=== PATIENT | male | born 1985 | race African-American/Black ===

== ENCOUNTER 2022-02-14 11:34 | Emergency (ER) | payer OTHER, SELFPAY ==
--- NOTE | ~2022-02-14 | CT_ITS ---
EXAMINATION: CT abdomen pelvis w con DATE: 02/14/2022 12:25 INDICATION: Lower abdominal pain TECHNIQUE: Computed tomography (CT) of the abdomen and pelvis was performed with 100 cc Omnipaque 350 intravenous contrast. The dose-length product was 479.55 mGy-cm. Automated exposure control and iter ative reconstruction technique were employed. COMPARISON: None. FINDINGS: There is right lower lobe atelectasis. There is an elevated right kidney with malrotation. There is a fracture of T12 transfixed by spinal rods and interpedicular screws above and below this l evel. There is an adjacent thoracotomy defect. The liver, spleen, pancreas, left adrenal gland and left kidney are unremarkable. The right adrenal g land is not well demonstrated. No significant vascular abnormality. No lymphadenopathy. Nonobstructive bowel gas pattern. Moderate colonic fecal loading. Normal appendix. There is thickenin g of the rectum with mild surrounding fatty infiltration. Consider stercoral proctitis. There is oste oarthritis of the hips. No free air or free fluid. IMPRESSION: 1. Thickening of the rectum with mild surrounding fatty infiltration. There is fecal loading of the r ectum. Consider stercoral proctitis. 2: Superiorly located right kidney with malrotation. There is a nearby thoracotomy defect with adjace nt T12 fracture transfixed by spinal rods and pedicular screws. Reviewed, dictated and finalized at location [facility]. 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 Thickening of the rectum with mild surrounding fatty infiltration. There is fecal loading of the rectum. Consider stercoral proctitis. 2: Superiorly located right kidney with malrotation. There is a nearby thoracot easton defect with adjacent T12 fracture transfixed by spinal rods and pedicular s crews.
[2022-02-14 11:35] VITALS: BP 142/80; PULSE 72; RESP 14; TEMP 37.2; O2SAT 100
[2022-02-14 12:01] LABS: Basophils Percent Auto 0.7 % (0.2-1.2); Eosinophils Absolute Auto 0.1 K/mm3 (0-0.3); Eosinophils Percent Auto 1.5 % (0-4.4); Hematocrit 41.3 % (42.0-52.0); Hemoglobin 13.5 g/dL (14.0-18.0); Immature Granulocyte Absolute 0.02 K/mm3 (0.00-0.031); Immature Granulocyte Percent A 0.4 % (0-0.5); Lymphocytes Absolute Auto 2.07 K/mm3 (0.9-3.2); Lymphocytes Percent Auto 38.1 % (18.3-44.2); Mean Corpuscular HGB Conc 32.7 g/dl (32-36); Mean Corpuscular Hemoglobin 29.7 pg (26-34); Mean Corpuscular Volume 90.8 fl (80-100); Mean Platelet Volume 10.4 fl (7.4-10.4); Monocytes Absolute Auto 0.4 K/mm3 (0.1-0.6); Monocytes Percent Auto 6.4 % (2.6-8.5); Neutrophils Absolute Auto 2.9 K/mm3 (1.3-6.7); Neutrophils Percent Auto 52.9 % (45.5-73.1); Platelet Count Result 302 k/mm3 (150-375); Red Blood Count 4.55 M/mm3 (4.6-6.20); Red Cell Distribution Width 17.2 % (11.5-14.5); White Blood Count 5.4 K/mm3 (4.5-10.0)
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
[2022-02-14 12:09] LABS: Estimated CRCL calculation 98 ml/min; Estimated Glomerular Filt Rate > 60
[2022-02-14 12:11] LABS: Alanine Aminotransferase 26 U/L (6-50); Albumin Level 4.4 g/dL (3.5-5.1); Alkaline Phosphatase 79 U/L (38-126); Anion Gap 7 mmol/L (8-16); Aspartate Amino Transferase 28 U/L (17-59); Bilirubin,Total 0.5 mg/dL (0.2-1.3); Blood Urea Nitrogen 11 mg/dL (9-20); Calcium 9.3 mg/dL (8.4-10.2); Carbon Dioxide 29 mmol/L (22-30); Chloride 98 mmol/L (98-107); Estimated CRCL calculation 109 ml/min; Estimated Glomerular Filt Rate > 60; Glucose 111 mg/dL (65-110); Lipase 120 U/L (23-300); Potassium 3.7 mmol/L (3.4-5.0); Sodium 134 mmol/L (137-145)
[2022-02-14 13:52] VITALS: BP 136/84; PULSE 72; RESP 16; O2SAT 98
[2022-02-14 13:56] LABS: Appearance Urine Clear (Clear); Bilirubin Urine 1+ (Negative); Blood Urine Negative (Negative); Color Urine Yellow (Yellow); Glucose Urine UA Negative (Negative); Ketones Urine Negative (Negative); Leukocyte Esterase Ur Negative LEU/UL (Negative); Nitrate Urine Negative (Negative); Protein Urine Negative (Negative); Specific Grav Ur 1.025 (1.001-1.035); Urobilinogen Urine 0.2 mg/dL (<2.0); pH Urine 5.5 (5.0-9.0)
[2022-02-14 13:59] LABS: Mucus Urine Rare /lpf; Squamous Epithelial Cell Urine Rare /hpf (Few)
[2022-02-14 14:00] LABS: Add Urine Microscopic? YES
[2022-02-14] MEDS: KETOROLAC 15 MG/ML VIAL (*BKC) IV PUSH (16:55)
[2022-02-14 16:56] VITALS: BP 122/86; PULSE 83; RESP 16; O2SAT 98
[2022-02-14] MEDS: CIPROFLOXACIN 500 MG TAB PO (17:15)
[2022-02-14] MEDS: metroNIDAZOLE 250 MG TABLET 500 MG PO (17:15)
--- NOTE | 2022-02-14 17:30 | PCCCNOTE ---
Late entry: Referral received for care coordination as patient has difficulty obtaining straight caths. Met with patient and his fiance Mary in ED Room 10. Patient states that he discharged from [facility] and the end of October and he has been having difficulty getting order signed from his primary doctor as the doctor has changed multiple times. He has left several messages this week with no return call. Patient also works with [employer] and they haven't had any luck in assisting him. He has called [employer] the medical supplier and they faxed the order to the wrong fax #. Patient does have a leather case finisher with [facility] named Meaghan, who is trying to assist and has helped get therapy set up which he will start on the . Called to [facility] Customer Service, the customer service line is closed and advises for call back during business hours. Called to [employer] they are closed. Called to Dr. Vamsi Jain at [phone], no answer and no ability to leave a message only access is urgent paging line. Called to Meaghan hemodialysis patient care specialist at [facility] [phone], left a voice mail message expresses concerns with the difficulties that the patient is having getting his catheters that he had to come to the ER today. Requested that she follow up with him. Provided patient with a list of primary providers from the [facility] if he would like to change. Advised him to call his current PCP for in office appt for ER follow up to get the order signed and fax'd for his catheters. Advised that he call his insurance to see if there is another medical supplier besides [employer] that he could use. Discussion with ED physician, supercharger mechanic and bedside RN Timoteo to send patient with some self caths while he is awaiting follow up.
--- NOTE | 2022-02-17 12:37 | PCCCNOTE ---
Late entry: called to Dr. Cristobal Agustin' office requested a follow up call to the patient since he was in the ER on Tuesday and having difficulty getting his self-catheters. Called to [facility] [place] someone from [facility] had called them to follow up and the catheters should be arriving via [employer] by the end of the day, actually the truck was in [place], [place]. Called to [facility] Supervisor Contact And Service Cler[employer] Meaghan and left a message that catheters should be arriving. Called to patient emi turner, spoke with him on the 2nd call and he states that his catheters have arrived. Phone call received from Meaghan, the patient's long term care administrator from [facility] and she confirms that she has been working hard to help him and had called [facility] today and they had said the same about the catheters. She notifies this showcase maker that he will start physical therapy on the at [facility] and working to get him some help at home and paid caregiver program through [facility] for his fiance Mary. Commended Meaghan on all her hard work for him and thanked her for the return call.
== END 2022-02-14 17:10 | disposition home or self-care (01) ==
PROVIDERS: Emergency Medicine; Emergency Provider Emergency Medicine
DX: N39.0 Urinary tract infection, site not specified (principal); K59.00 Constipation, unspecified; G82.20 Paraplegia, unspecified; T14.8XXS Other injury of unspecified body region, sequela; W34.00XS Accidental discharge from unspecified firearms or gun, sequela
CPT/HCPCS: 36415; 51701; 74177; 80053; 81001; 83690; 85025; 96374; 99284; A9270; J1885; Q9967

== ENCOUNTER 2022-12-03 16:54 | Emergency (ER) | payer OTHER, SELFPAY ==
[2022-12-03 18:09] VITALS: BP 144/82; PULSE 71; RESP 18; TEMP 37.2; O2SAT 100
[2022-12-03 18:35] LABS: Basophils Percent Auto 0.7 % (0.2-1.2); Eosinophils Absolute Auto 0.1 K/mm3 (0-0.3); Eosinophils Percent Auto 0.8 % (0-4.4); Hematocrit 43.4 % (42.0-52.0); Hemoglobin 14.6 g/dL (14.0-18.0); Immature Granulocyte Absolute 0.02 K/mm3 (0.00-0.031); Immature Granulocyte Percent A 0.3 % (0-0.5); Lymphocytes Absolute Auto 1.99 K/mm3 (0.9-3.2); Lymphocytes Percent Auto 32.9 % (18.3-44.2); Mean Corpuscular HGB Conc 33.6 g/dl (32-36); Mean Corpuscular Volume 95.2 fl (80-100); Mean Platelet Volume 10.9 fl (7.4-10.4); Monocytes Absolute Auto 0.5 K/mm3 (0.1-0.6); Monocytes Percent Auto 7.8 % (2.6-8.5); Neutrophils Absolute Auto 3.5 K/mm3 (1.3-6.7); Neutrophils Percent Auto 57.5 % (45.5-73.1); Platelet Count Result 256 k/mm3 (150-375); Red Blood Count 4.56 M/mm3 (4.6-6.20); Red Cell Distribution Width 13.7 % (11.5-14.5)
[2022-12-03 18:54] LABS: Alanine Aminotransferase 67 U/L (6-50); Albumin Level 4.6 g/dL (3.5-5.1); Alkaline Phosphatase 91 U/L (38-126); Anion Gap 11 mmol/L (8-16); Aspartate Amino Transferase 58 U/L (17-59); Bilirubin,Total 0.8 mg/dL (0.2-1.3); Blood Urea Nitrogen 10 mg/dL (9-20); Calcium 9.6 mg/dL (8.4-10.2); Carbon Dioxide 25 mmol/L (22-30); Chloride 100 mmol/L (98-107); Estimated Glomerular Filt Rate > 60; Glucose 84 mg/dL (65-110); Lipase 89 U/L (23-300); Potassium 4.4 mmol/L (3.4-5.0); Sodium 136 mmol/L (137-145)
--- NOTE | 2022-12-03 19:47 | PC.NURSE ---
pt left before being seen. Did not want to wait any longer.
== END 2022-12-03 20:48 | disposition left against medical advice (07) ==
PROVIDERS: Emergency Provider Emergency Medicine
DX: R10.30 Lower abdominal pain, unspecified (principal)
CPT/HCPCS: 36415; 80053; 83690; 85025; 99199

== ENCOUNTER 2023-01-12 17:38 | Emergency (ER) | payer OTHER, SELFPAY ==
[2023-01-12 17:40] VITALS: BP 143/70; PULSE 84; RESP 17; TEMP 37.2; O2SAT 100
[2023-01-12 18:31] LABS: Basophils Percent Auto 0.5 % (0.2-1.2); Eosinophils Absolute Auto 0.1 K/mm3 (0-0.3); Eosinophils Percent Auto 1.5 % (0-4.4); Hematocrit 42.1 % (42.0-52.0); Hemoglobin 13.7 g/dL (14.0-18.0); Immature Granulocyte Absolute 0.05 K/mm3 (0.00-0.031); Immature Granulocyte Percent A 0.7 % (0-0.5); Lymphocytes Absolute Auto 2.16 K/mm3 (0.9-3.2); Lymphocytes Percent Auto 28.9 % (18.3-44.2); Mean Corpuscular HGB Conc 32.5 g/dl (32-36); Mean Corpuscular Hemoglobin 31.7 pg (26-34); Mean Corpuscular Volume 97.5 fl (80-100); Monocytes Absolute Auto 0.7 K/mm3 (0.1-0.6); Monocytes Percent Auto 8.7 % (2.6-8.5); Neutrophils Absolute Auto 4.5 K/mm3 (1.3-6.7); Neutrophils Percent Auto 59.7 % (45.5-73.1); Platelet Count Result 205 k/mm3 (150-375); Red Blood Count 4.32 M/mm3 (4.6-6.20); Red Cell Distribution Width 15.9 % (11.5-14.5); White Blood Count 7.5 K/mm3 (4.5-10.0)
[2023-01-12 18:41] LABS: Alanine Aminotransferase 65 U/L (6-50); Albumin Level 3.8 g/dL (3.5-5.1); Alkaline Phosphatase 80 U/L (38-126); Anion Gap 4 mmol/L (8-16); Aspartate Amino Transferase 46 U/L (17-59); Bilirubin,Total 0.5 mg/dL (0.2-1.3); Blood Urea Nitrogen 7 mg/dL (9-20); Calcium 8.9 mg/dL (8.4-10.2); Carbon Dioxide 29 mmol/L (22-30); Chloride 105 mmol/L (98-107); Estimated CRCL calculation 122 ml/min; Estimated Glomerular Filt Rate > 60; Glucose 116 mg/dL (65-110); Lipase 163 U/L (23-300); Potassium 3.9 mmol/L (3.4-5.0); Sodium 138 mmol/L (137-145)
[2023-01-12 19:20] LABS: Appearance Urine Cloudy (Clear); Bacteria Urine 4+ /hpf; Bilirubin Urine Negative (Negative); Blood Urine Negative (Negative); Color Urine Yellow (Yellow); Glucose Urine UA Negative (Negative); Ketones Urine Trace mg/dL (Negative); Leukocyte Esterase Ur 2+ LEU/UL (Negative); Need Manual Microscopic Reviewed; Nitrate Urine Negative (Negative); Non Pathogenic Casts 0-2; Protein Urine Negative (Negative); RBC Urine 0-2 /hpf (0-2); Specific Grav Ur 1.024 (1.001-1.035); Squamous Epithelial Cell Urine None seen /hpf (Few); WBC Urine 51-100 /hpf
[2023-01-12 19:21] LABS: Add Urine Microscopic? YES
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
== END 2023-01-12 20:55 | disposition home or self-care (01) ==
PROVIDERS: Emergency Provider Emergency Medicine; PCP Internal Medicine Gastroenterology
DX: T83.518A Infection and inflammatory reaction due to other urinary catheter, initial encounter (principal); N39.0 Urinary tract infection, site not specified; T25.221A Burn of second degree of right foot, initial encounter; T31.0 Burns involving less than 10% of body surface; G82.20 Paraplegia, unspecified; T14.8XXS Other injury of unspecified body region, sequela; X11.0XXA Contact with hot water in bath or tub, initial encounter; Y84.6 Urinary catheterization as the cause of abnormal reaction of the patient, or of later complication, without mention of misadventure at the time of the procedure
CPT/HCPCS: 36415; 80053; 81001; 83690; 85025; 87077; 87086; 87186; 99283

== ENCOUNTER 2024-03-19 18:13 | Emergency (ER) | payer MEDICARE, MEDICAID, SELFPAY ==
--- NOTE | 2024-03-19 18:29 | ED_ITS ---
HPI - Abdominal Pain General Chief Complaint: Abdominal Pain Stated Complaint: ABD PAIN X1D Time Seen by Provider: 03/19/24 18:29 Focused HPI: This is a 39 year old male that presents to the ER for abdominal pain. Ongoing since last night. Reports he believes he is constipated. He believes he is dehydrated. Denies fever, vomiting, or diarrhea. GENERAL: Uncomfortable, well-nourished, and in no acute distress. HEAD: Normocephalic, atraumatic. CHEST: Clear to auscultation. ?No respiratory distress. HEART: Regular rate and rhythm.? NEURO: ?Alert and oriented x3. Patient screened in triage and initial orders placed.? ?Additional care and disposition to be based upon?diagnostic testing and treatment. Related Data Allergies Allergy/AdvReac Type Severity Reaction Status Date / Time No Known Allergies Allergy Verified 03/19/24 18:14 PMFSH Past Medical History Medical History (Updated 03/20/24 @ 17:04 by Michelle Dawn PA-C) Paraplegia Surgical History Surgical History (Updated 01/12/23 @ 22:42 by Gary Mishra MD) Previous back surgery Course Vital Signs Vital signs: Vital Signs Temperature 98.2 F 03/19/24 19:24 Pulse Rate 49 L 03/19/24 19:24 Respiratory Rate 16 03/19/24 19:24 Blood Pressure 115/71 03/19/24 19:24 Pulse Oximetry 100 03/19/24 19:24 Oxygen Delivery Room Air 03/19/24 19:24 Temperature 98.2 F 03/19/24 19:24 Pulse Rate 49 L 03/19/24 19:24 Respiratory Rate 16 03/19/24 19:24 Blood Pressure 115/71 03/19/24 19:24 Pulse Oximetry 100 03/19/24 19:24 Oxygen Delivery Room Air 03/19/24 19:24 MDM - Abdominal Pain MDM Narrative Medical decision making narrative: Patient left after medical screening exam and before any further evaluation or management Discharge Plan Discharge Clinical Impression: Abdominal pain Qualifiers: Abdominal location: unspecified location Qualified Code(s): R10.9 - Unspecified abdominal pain Patient Disposition: Elopement After Seen by Prov Condition: Guarded Prognosis Instructions: Antibiotic Form Patient Language: Portuguese Prescriptions: No Action cefuroxime axetil 500 mg tablet 500 mg PO BID Qty: 20 0RF ciprofloxacin HCl [Cipro] 500 mg tablet 500 mg PO Q12H Qty: 14 0RF metronidazole 500 mg tablet 500 mg PO Q12H 14 Days Qty: 28 0RF Follow-up/Referrals: Vamis,Cristobal Lewis MD [Primary Care Provider] -
[2024-03-19 19:24] VITALS: BP 115/71; PULSE 49; RESP 16; TEMP 36.8; O2SAT 100
--- NOTE | 2024-03-19 21:19 | PC.NURSE ---
No answer when called for room.
--- NOTE | 2024-03-19 21:35 | PC.NURSE ---
No answer when called for room.
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
--- OUTSIDE RECORDS SUMMARY | 2024-03-26 05:36 | XMS_ITS | Referral Summary ---
Author Organization [facility] Address [address] [place] [address] Care Team Providers Care Package Worker Name Role Phone Hussain Rushing APRN-TRAMAINE Unavailable [phone] Hussain Rushing MID LEVEL GAME DESIGNER-CHICK ROOM SUPERVISOR Primary Care Provider Source Comments [facility],non-owned Affiliates and Associated Physician Practices is amultiple site organization consisting of ambulatory clinics and hospital sitesin [place], [place], [place] and [place]. This disclosure is being madepursuant to the Care Everywhere program and may not contain all information available regarding this patient. Last updated 17.[facility] Allergies No known active allergies Medications * [...] (OCEAN; BABY AYR) 0.65 % nasal spray [place] 2 (two) sprays into each nostril every [...] mg tablet Active ergocalciferol (Drisdol) 1.25 MG (23286 UT) capsule Vitamin D2 1,250 mcg (50,000 [...] Mass Index 28.06 12/20/2021 1:26 PM CDT Functional Status Functional Status Response Date of Assess ment Is person deaf or have serious hearing difficult y? No 09/28/2021 Is person blind or have serious difficulty seein g? No 09/28/2021 Does person have serious dif ficulty walking/climbing stairs? No 09/28/2021 Does person have difficulty dressing/bathing? No 09/28/2021 Does person have difficulty doing errands alone? No 09/28/2021 Cognitive Status Response Date of Assessm ent Does person have difficulty concentrating/remembering/making decisions? No 09/28/2021 Plan of Treatment Not on file Medical Devices Implanted Type Area Tar Worker Device Identifier Shelf Expiration Date Model / Serial / Lot Graft Bone Grftn Dbm Plif 10x2.5cm - [id number] Implanted:Qt y: 1 on 10/06/2021 by Marbin Mejia MD at [facility] N/A: Spine Thoracic [employer] 08/20/2024 [id number] / [id number] / Screw 6.5mm 50mm Ma Spne Solera Cd Hzn Implanted:Qt y: 1 on 10/06/2021 by Marbin Mejia MD at [facility] N/A: Spine Thoracic [employer] [id number] / / Screw 6.5mm 45mm Ma Spne Solera Cd Hzn Implanted:Qt y: 5 on 10/06/2021 by Marbin Mejia MD at [facility] N/A: Spine Thoracic [employer] [id number] / / Screw 7.5mm 50mm Ma Spne Solera Cd Hzn Implanted:Qt y: 1 on 10/06/2021 by Marbin Mejia MD at [facility] N/A: Spine Thoracic [employer] [id number] / / Screw 7.5mm 45mm Ma Spne Solera Cd Hzn Implanted:Qt y: 2 on 10/06/2021 by Marbin Mejia MD at [facility] N/A: Spine Thoracic [employer] [id number] / / Screw Set Ti Spnl Brk Off Cd Hzn Nonster Implanted:Qt y: 9 on 10/06/2021 by Marbin Mejia MD at [facility] N/A: Spine Thoracic [employer] [id number] / / Arnav Spnl 150mm 5.5mm Cd Hzn Str Perc Implanted:Qt y: 1 on 10/06/2021 by Marbin Mejia MD at [facility] N/A: Spine Thoracic [employer] [id number] / / Graft Bone Grftn Dbm Plif 10x2.5cm - [id number] Implanted:Qt y: 1 on 10/06/2021 by Marbin Mejia MD at [facility] N/A: Spine Thoracic [employer] 08/20/2024 [id number] / [id number] / Arnav Spnl 160mm 5.5mm Cd Hzn Str Perc Implanted:Qt y: 1 on 10/06/2021 by Marbin Mejia MD at [facility] N/A: Spine Thoracic [employer] [id number] / / Bonescrew, Axs, St 1.7x5mm 5p Implanted:Qt y: 7 on 10/07/2021 at [facility] Mandible Ladonna Craniomaxillofacial [id number] / / Plate 24 Hl Mdfc .6mm Std Str Leibinger Implanted:Qt y: 1 on 10/07/2021 at [facility] Mandible [place] Craniomaxillofacial [id number] / / Explanted Type Area Tar Worker Device Identifier Shelf Expiration Date Model / Serial / Lot Screw 2mm 8mm Slf Drl Xpn Lgt Wire Mndb Explanted:Qty: 6 on 10/07/2021 at [facility] Mandible [place] Craniomaxillofacial [id number] / / Advance Directives * Full Code (Latest Code Status on File) Date Activated Date Inactivated Comments 09/27/2021 9:12 PM 10/13/2021 8:11 PM Care Teams Package Worker Relationship Specialty Start Date End Date Hussain Rushing APRN-CHICK ROOM SUPERVISOR PCP - General 10/19/21 Hussain Rushing APRN-CHICK ROOM SUPERVISOR 09/28/21
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
--- OUTSIDE RECORDS SUMMARY | 2024-03-26 05:38 | XMS_ITS | Encounter Summary ---
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 requests a less strong medication, a lower dose, or a less intrusive route of administration when the lesser drug, dose and route have been ordered for the patient. This patient request must be documented in the MAR. $ Given 10/09/2021 8:58 AM CDT 25 mc g fentaNYL (PF) (Sublimaze) injection 50 mcg 50 mcg, Intravenous, EVERY 10 MIN PRN, Moderate Pain, 4 doses, Starting on Tue10/06/21 at 1148, Until Tue10/06/21 at 1336, Maximum total of 4 doses. If patient reaches max total dose, please consult anesthesiologist prior to further administration of pain meds. Hold pain meds if there are signs of hypoventilation. Patient preference for lesser PRN pain meds may be honored when the patient requests a less strong medication, a lower dose, or a less intrusive route of administration when the lesser drug, dose and route have been ordered for the patient. This patient request must be documented in the MAR., PACU $ Given 10/06/2021 12:26 PM CDT 50 mcg $ Given 10/06/2021 12:13 PM CDT 50 mcg fentaNYL (PF) (Sublimaze) injection 50 mcg 50 mcg, Intravenous, EVERY 10 MIN PRN, Moderate Pain, 4 doses, Starting on Tue10/07/21 at 1400, Until Tue10/07/21 at 1454, Maximum total of 4 doses. If patient reaches max total dose, please consult anesthesiologist prior to further administration of pain meds. Hold pain meds if there are signs of hypoventilation. Patient preference for lesser PRN pain meds may be honored when the patient requests a less strong medication, a lower dose, or a less intrusive route of administration when the lesser drug, dose and route have been ordered for the patient. This patient request must be documented in the MAR., PACU $ Given 10/07/2021 2:19 PM CDT 50 mcg fentaNYL (Sublimaze) bolus from infusion bag 50 mcg 50 mcg, Intravenous, BOLUS FROM BAG PRN, CPOT/RASS goal, Starting on Tue09/27/21 at 2114, Until Tue09/30/21 at 1240, Bolus from bag every 5 minutes to reach CPOT or RASS goal. ??Can give bolus before anticipated painful stimuli. Contact physician if unable to achieve CPOT or RASS goal after administering 4 boluses. Bolus From Bag 09/30/2021 4:41 AM CDT 5 0 mcg Bolus From Bag 09/29/2021 2:05 PM CDT 50 mcg Bolus From Bag 09/29/2021 7:54 AM CDT 50 mcg fentaNYL 2500 mcg/50mL (Sublimaze) infusion 0-200 mcg/hr (0-4 mL/hr), Intravenous, CONTINUOUS, Starting on Tue09/27/21 at 2145, Until Tue10/02/21 at 0922, Above CPOT or RASS goal: bolus per order until goal CPOT or RASS then increase rate per order. Can give bolus before anticipated painful stimuli. Contact physician if unable to achieve RASS goal after administering 4 boluses. At CPOT and RASS goal and no change in 4 hours: Decrease rate per order. Below RASS goal: Hold infusion until at goal then restart at 50% previous rate. If significant hemodynamic changes notify physician., Titration Parameters: Analgosedation, Indication: Analgosedation, Initiate infusion at: 25 mcg/hr, Titrate infusion by: 25 mcg/hr, Titrate every: 5 minutes, Notify physician if: Unachievable RASS goal despite max dose, Unachievable CPOT goal despite max dose, Titration Priority: 1st Current Rate 10/02/2021 12:28 AM CDT 200 mcg/hr 4 mL/hr $ New Bag/Syringe 10/01/2021 10:18 PM CDT 200 mcg/hr 4 mL/ hr Current Rate 10/01/2021 10:03 PM CDT 200 mcg/hr 4 mL/hr gabapentin (Neurontin) capsule 300 mg 300 mg, Oral, 3 TIMES DAILY, First dose on [facility] 10/03/21 at 1500, Until Discontinued $ Given 10/07/2021 9:00 PM CDT 300 mg $ Given 10/07/2021 8:15 AM CDT 300 mg $ Given 10/06/2021 8:18 PM CDT 300 mg gabapentin (Neurontin) capsule 600 mg 600 mg, Oral, 3 TIMES DAILY, First dose (after last modification) on [facility] 10/08/21 at 0900, Until Discontinued $ Given 10/09/2021 8:57 PM CDT 600 mg $ Given 10/09/2021 12:59 PM CDT 600 mg $ Given 10/09/2021 9:03 AM CDT 600 mg gabapentin (Neurontin) capsule 600 mg 600 mg, Oral, 3 TIMES DAILY, First dose (after last modification) on [place] 10/11/21 at 1400, Until Discontinued $ Given 10/12/2021 8:33 AM CDT 600 mg $ Given 10/11/2021 8:19 PM CDT 600 mg $ Given 10/11/2021 1:38 PM CDT 600 mg gabapentin (Neurontin) capsule 900 mg 900 mg, Oral, 3 TIMES DAILY, First dose (after last modification) on [facility] 10/10/21 at 0900, Until Discontinued $ Given 10/11/2021 9:39 AM CDT 900 mg $ Given 10/10/2021 8:08 PM CDT 900 mg $ Given 10/10/2021 2:22 PM CDT 900 mg gabapentin (Neurontin) capsule 900 mg 900 mg, Oral, 3 TIMES DAILY, First dose (after last modification) on 10/12/21 at 1400, Until Discontinued $ Given 10/13/2021 2:22 PM CDT 900 mg $ Given 10/13/2021 7:35 AM CDT 900 mg $ Given 10/12/2021 9:21 PM CDT 900 mg gabapentin (Neurontin) oral solution 300 mg 300 mg, Enteral Tube, 3 TIMES DAILY, First dose on [place] 10/01/21 at 0900, Until Discontinued, Refrigerate. $ Given 10/02/2021 9:13 AM CDT 300 mg NG Tube $ Given 10/01/2021 8:28 PM CDT 300 mg OG Tube $ Given 10/01/2021 2:36 PM CDT 300 mg OG Tube gabapentin (Neurontin) oral solution 300 mg 300 mg, Oral, 3 TIMES DAILY, First dose (after last modification) on Tue10/02/21 at 1400, Until Discontinued, Refrigerate. $ Given 10/03/2021 9:54 AM CDT 300 m g $ Given 10/02/2021 9:39 PM CDT 300 mg $ Given 10/02/2021 2:45 PM CDT 300 mg heparin injection 5,000 Units 5,000 Units, Subcutaneous, EVERY 8 HOURS, First dose on [place] 10/08/21 at 0600, Until Discontinued $ Given 10/12/2021 4:49 AM CDT 5,000 Units Abdominal Tissue $ Given 10/11/2021 8:19 PM CDT 5,000 Units A bdominal Tissue $ Given 10/11/2021 1:38 PM CDT 5,000 Units A bd Right Lower Quadrant HYDROmorphone (Dilaudid) 10 mg/50 mL RELOCATION SPECIALIST RELOCATION SPECIALIST Dose: 0.2 mg, RELOCATION SPECIALIST Lockout Interval: 12 Minutes, One Hour Limit\Max Limit: 1 mg, Clinician Bolus (Load): Not Ordered, Intravenous, RELOCATION SPECIALIST, Starting on 10/03/21 at 1015, Until 10/03/21 at 1321, RELOCATION SPECIALIST Pump Therapy: Normal Risk (RELOCATION SPECIALIST Only) $ New Bag/Syringe 10/03/2021 11:08 AM CDT HYDROmorphone (Dilaudid) injection 0.2 mg 0.2 mg, Intravenous, EVERY 2 HOURS PRN, breakthrough pain, Starting on [place] 10/01/21 at 0810, Until Tue10/02/21 at 0926, Patient preference for lesser PRN pain meds may be honored when the patient requests a less strong medication, a lower dose, or a less intrusive route of administration when the lesser drug, dose and route have been ordered for the patient. This patient request must be documented in the MAR. $ Given 10/02/2021 7:36 AM CDT 0.2 mg HYDROmorphone (Dilaudid) injection 0.2 mg 0.2 mg, Intravenous, Once, 1 dose, On 10/03/21 at 2000, Patient preference for lesser PRN pain meds may be honored when the patient requests a less strong medication, a lower dose, or a less intrusive route of administration when the lesser drug, dose and route have been ordered for the patient. This patient request must be documented in the MAR. $ Given 10/03/2021 8:06 PM CDT 0.2 mg HYDROmorphone (Dilaudid) injection 0.4 mg 0.4 mg, Intravenous, EVERY 3 HOURS PRN, breakthrough pain, Starting on Tue10/02/21 at 0930, Until 10/03/21 at 0957, Patient preference for lesser PRN pain meds may be honored when the patient requests a less strong medication, a lower dose, or a less intrusive route of administration when the lesser drug, dose and route have been ordered for the patient. This patient request must be documented in the MAR. $ Given 10/03/2021 8:27 AM CDT 0.4 mg $ Given 10/03/2021 6:03 AM CDT 0.4 mg $ Given 10/03/2021 12:12 AM CDT 0.4 mg HYDROmorphone (Dilaudid) injection 0.5 mg 0.5 mg, Intravenous, EVERY 10 MIN PRN, Severe Pain, 4 doses, Starting on Tue10/06/21 at 1148, Until Tue10/06/21 at 1336, Maximum total of 4 doses If patient reaches max total dose, please consult anesthesiologist prior to further administration of pain meds. Hold pain meds if there are signs of hypoventilation. Patient preference for lesser PRN pain meds may be honored when the patient requests a less strong medication, a lower dose, or a less intrusive route of administration when the lesser drug, dose and route have been ordered for the patient. This patient request must be documented in the MAR., PACU $ Given 10/06/2021 12:35 PM CDT 0.5 mg $ Given 10/06/2021 12:00 PM CDT 0.5 mg insulin lispro (HumaLOG;ADMelog) 100 UNIT/ML pen 0-6 Units 0-6 Units, Subcutaneous, EVERY 4 HOURS, First dose on Tue09/28/21 at 0000, Until Discontinued, DO NOT HOLD CORRECTION BOLUS EVEN IF PATIENT IS NPO. BEDSIDE GLUCOSE MUST BE PERFORMED AND DOCUMENTED WITHIN 30-60 MINUTES OF CORRECTION INSULIN ADMINISTRATION. BG (mg/dL) LESS than 70 = follow Hypoglycemic guidelines 150-200 = give 1 unit 201-250 = give 2 units 251-300 = give 3 units 301-350 = give 4 units 351-400 = give 5 units and notify physician GREATER than 400 = give 6 units and notify physician $ Given 09/29/2021 8:47 AM CDT 1 Units Abd Right Lower Quadrant iopamidol (Isovue 370) 76 % contrast Intravenous, CONTRAST ONCE, Starting on Tue09/30/21 at 1736, Until Tue10/02/21 at 1735 $ Given - Contrast 09/30/2021 5:36 PM CDT 100 mL iopamidol (Isovue 370) contrast ADS Med 1 dose, Starting on Tue09/27/21 at 2101, Until Tue09/27/21 at 2130, Created by cabinet override $ Given - Contrast 09/27/2021 9:30 PM CDT 100 mL isolyte-S pH 7.4 bolus 1,000 mL, at 983.61 mL/hr, Administer over 61 Minutes, ONCE, 1 dose, On Tue09/28/21 at 1745 $ New Bag/Syringe 09/28/2021 7:49 PM CDT 1,000 mL 983.61 mL/hr isolyte-S pH 7.4 bolus 1,000 mL, at 983.61 mL/hr, Administer over 61 Minutes, ONCE, 1 dose, On Tue09/30/21 at 1300 $ New Bag/Syringe 09/30/2021 4:36 PM CDT 1,000 mL 983.61 mL/hr ketamine (Ketalar) 10 mg/mL injection ADS Med 1 dose, Starting on Tue09/27/21 at 2108, Until Tue09/27/21 at 2125, Created by cabinet override . ketamine (Ketalar) 10 mg/mL injection ADS Med 1 dose, Starting on Tue09/27/21 at 2129, Until Tue09/27/21 at 2157, Created by cabinet override . $ Given 09/27/2021 9:57 PM CDT 50 mg ketamine (Ketalar) 10 mg/mL injection ADS Med 1 dose, Starting on Tue09/27/21 at 2129, Until Tue09/27/21 at 2136, Created by cabinet override . $ Given 09/27/2021 9:36 PM CDT 50 mg ketamine (Ketalar) injection Intravenous, CODE PRN, Starting on Tue09/27/21 at 2111, Until Tue09/27/21 at 2125 $ Given 09/27/2021 9:25 PM CDT 50 mg $ Given 09/27/2021 9:11 PM CDT 100 mg lactated ringers infusion at 150 mL/hr, Intravenous, CONTINUOUS, Starting on Tue09/28/21 at 0500, Until Tue09/28/21 at 1728 $ New Bag/Syringe 09/28/2021 1:36 PM CDT 150 mL/hr Rate Change 09/28/2021 12:02 PM CDT 150 mL/hr $ New Bag/Syringe 09/28/2021 5:06 AM CDT 125 mL /hr lactated ringers IV bolus 1,000 mL, at 983.61 mL/hr, Administer over 61 Minutes, ONCE, 1 dose, On Tue09/28/21 at 0400 $ New Bag/Syringe 09/28/2021 3:58 AM CDT 1,000 mL 983.61 mL/hr lactated ringers IV bolus 1,000 mL, at 983.61 mL/hr, Administer over 61 Minutes, ONCE, 1 dose, On Tue09/28/21 at 1200 $ New Bag/Syringe 09/28/2021 12:01 PM CDT 1,000 mL 983.61 mL/hr lidocaine (Lidoderm) 5 % patch 3 patch 3 patch, Administer over 12 Hours, EVERY 24 HOURS, First dose on [place] 10/01/21 at 0845, Until Discontinued, Apply to extremities and abdomen and remove patch after a max of 12 hours of application within a 24 hour period. $ Applied 10/11/2021 9:39 AM CDT 3 patches Back $ Applied 10/10/2021 9:12 AM CDT 3 patches Ba ck $ Applied 10/09/2021 9:04 AM CDT 3 patches Ba ck magnesium sulfate 2 g in 50 mL bolus 2 g, at 25 mL/hr, Administer over 120 Minutes, Intravenous, ONCE, 1 dose, On Tue09/29/21 at 0300, Infuse at 1 gm/hr $ New Bag/Syringe 09/29/2021 4:09 AM CDT 2 g 25 mL/hr magnesium sulfate 2 g in 50 mL bolus 2 g, at 25 mL/hr, Administer over 120 Minutes, Intravenous, ONCE, 1 dose, On Tue09/30/21 at 0430, Infuse at 1 gm/hr $ New Bag/Syringe 09/30/2021 5:25 AM CDT 2 g 25 mL/hr methocarbamol (Robaxin) tablet 750 mg 750 mg, Enteral Tube, EVERY 6 HOURS, First dose on Tue10/01/21 at 0830, Until Discontinued $ Given 10/02/2021 5:02 AM CDT 750 mg OG Tube $ Given 10/01/2021 11:24 PM CDT 750 mg O G Tube $ Given 10/01/2021 5:31 PM CDT 750 mg OG Tube methocarbamol (Robaxin) tablet 750 mg 750 mg, Oral, EVERY 6 HOURS, First dose (after last modification) on Tue10/02/21 at 1200, Until Discontinued $ Given 10/03/2021 6:03 AM CDT 750 mg $ Given 10/03/2021 12:01 AM CDT 750 mg $ Given 10/02/2021 6:06 PM CDT 750 mg methocarbamol (Robaxin) tablet 750 mg 750 mg, Oral, EVERY 8 HOURS, First dose on Tue10/11/21 at 1400, Until Discontinued $ Given 10/13/2021 2:22 PM CDT 750 mg $ Given 10/13/2021 5:51 AM CDT 750 mg $ Given 10/12/2021 9:21 PM CDT 750 mg midazolam (Versed) 1 mg/mL injection ADS Med 1 dose, Starting on Tue09/27/21 at 2201, Until Tue09/27/21 at 2207, Created by cabinet override $ Given 09/27/2021 10:07 PM CDT 4 mg midazolam (Versed) 100 mg in 100 mL infusion premix 0-10 mg/hr (0-10 mL/hr), Intravenous, CONTINUOUS, Starting on Tue09/27/21 at 2245, Until Tue10/02/21 at 0922, Above RASS goal: Assess and treat pain first if CPOT greater than 2. Bolus per order until goal RASS and increase rate per order. Contact physician if unable to reach RASS goal after administering 4 boluses. At RASS goal and no change in 4 hrs: Decrease rate per order. Below RASS goal (unarousable): Hold infusion until at goal RASS then restart at 50% previous rate. If significant hemodynamic changes notify physician for instructions. Notify physician for inability to reach goals despite maximal dosage Note: The CPOT goal should be achieved first with the use of the ordered analgesic medication prior to targeting RASS goal with the sedative., Titration Parameters: Standard Parameters, Indication: Sedation, Initiate infusion at: 2 mg/hr, Titrate infusion by: 1 mg/hr, Titrate every: 5 minutes, Notify physician if: Unachievable RASS goal despite max dose, Titration Priority: 2nd Rate Change 10/02/2021 1:03 AM CDT 1 mg/hr 1 mL/hr Current Rate 10/02/2021 12:28 AM CDT 2 mg/hr 2 mL/hr Current Rate 10/01/2021 6:02 AM CDT 2 mg/hr 2 mL/hr midazolam (Versed) bolus from infusion bag 2 mg 2 mg, Intravenous, BOLUS FROM BAG PRN, RASS Goal, Starting on Tue09/27/21 at 2209, Until Tue10/02/21 at 0922, Bolus every 5 minutes to reach RASS goal. Contact physician if unable to reach RASS goal after administering 4 boluses. Note: The CPOT goal should be achieved first with the use of the ordered analgesic medication prior to targeting RASS goal with the sedative. Bolus From Bag 09/30/2021 6:07 PM CD T 2 mg Bolus From Bag 09/30/2021 5:50 PM CDT 2 mg Bolus From Bag 09/30/2021 6:15 AM CDT 2 mg morphine 50 mg/50 mL RELOCATION SPECIALIST RELOCATION SPECIALIST Dose: 1 mg, RELOCATION SPECIALIST Lockout Interval: 15 Minutes, One Hour Limit\Max Limit: 4 mg, Clinician Bolus (Load): Not Ordered, Intravenous, RELOCATION SPECIALIST, Starting on 10/03/21 at 1415, Until 10/03/21 at 1835, RELOCATION SPECIALIST Pump Therapy: Normal Risk (RELOCATION SPECIALIST only) $ New Bag/Syringe 10/03/2021 2:39 PM CDT morphine 50 mg/50 mL RELOCATION SPECIALIST RELOCATION SPECIALIST Dose: 1 mg, RELOCATION SPECIALIST Lockout Interval: 10 Minutes, One Hour Limit\Max Limit: 6 mg, Clinician Bolus (Load): Not Ordered, Intravenous, RELOCATION SPECIALIST, Starting on 10/03/21 at 1845, Until [place] 10/08/21 at 0715, RELOCATION SPECIALIST Pump Therapy: Normal Risk (RELOCATION SPECIALIST only) $ New Bag/Syringe 10/08/2021 5:59 AM CDT $ New Bag/Syringe 10/07/2021 4:59 PM CDT $ New Bag/Syringe 10/07/2021 7:07 AM CDT morphine injection 2 mg 2 mg, Intravenous, ONCE, 1 dose, On 10/02/21 at 0945, Patient preference for lesser PRN pain meds may be honored when the patient requests a less strong medication, a lower dose, or a less intrusive route of administration when the lesser drug, dose and route have been ordered for the patient. This patient request must be documented in the MAR. $ Given 10/02/2021 9:48 AM CDT 2 mg morphine injection 2 mg 2 mg, Intravenous, EVERY 4 HOURS PRN, Break through pain, Starting on 10/11/21 at 0116, Until Tue10/12/21 at 0705, Patient preference for lesser PRN pain meds may be honored when the patient requests a less strong medication, a lower dose, or a less intrusive route of administration when the lesser drug, dose and route have been ordered for the patient. This patient request must be documented in the MAR. $ Given 10/11/2021 1:22 AM CDT 2 mg morphine injection 4 mg 4 mg, Intravenous, EVERY 4 HOURS PRN, Severe Pain, if PO meds ineffective, Starting on [place] 10/08/21 at 0716, Until 10/10/21 at 0741, Patient preference for lesser PRN pain meds may be honored when the patient requests a less strong medication, a lower dose, or a less intrusive route of administration when the lesser drug, dose and route have been ordered for the patient. This patient request must be documented in the MAR. $ Given 10/08/2021 7:35 PM CDT 4 mg norepinephrine (Levophed) 8 mg/250 ml D5 infusion premix ADS Med 1 dose, Starting on 09/27/21 at 2129, Until [place] 09/27/21 at 2131, Created by jordan gu norepinephrine (Levophed) 8 mg/250 ml D5 infusion premix 0-0.4 mcg/kg/min ? 90.7 kg (0-68.025 mL/hr, rounded to 0-68.03 mL/hr), Intravenous, CONTINUOUS, Starting on [place] 09/27/21 at 2215, Until [facility] 10/01/21 at 0822, Central line required if infused longer than 48 hours or infusing multiple vasopressors, Titration Parameters: Standard Parameters, Indication: Hypotension, Initiate infusion at: 0.05 mcg/kg/min, Titrate infusion by: If current rate 0.01 to 0.1 mcg/kg/min, titrate by 0.01 mcg/kg/min. If current rate 0.11 to 0.3 mcg/kg/min, titrate by 0.02 mcg/kg/min. If current rate 0.31 mcg/kg/min to the max ordered dose, titrate by 0.05 mcg/kg/min., Titrate every: 1 minute, To maintain a: MAP greater than or equal to 65 mmHg, Notify physician if: MAP less than 65 mmHg despite max dose Rate Change 09/28/2021 10:21 AM CDT 0.01 mcg/kg/min 1.7 mL/hr Rate Change 09/28/2021 9:31 AM CDT 0.02 mcg/kg/min 3.4 mL/ hr Rate Change 09/28/2021 9:15 AM CDT 0.03 mcg/kg/min 5.1 mL/ hr oxyCODONE (immediate release) (Roxicodone) tablet 10 mg 10 mg, Oral, EVERY 4 HOURS PRN, Severe Pain, Starting on Tue10/02/21 at 0922, Until 10/03/21 at 0957, Patient preference for lesser PRN pain meds may be honored when the patient requests a less strong medication, a lower dose, or a less intrusive route of administration when the lesser drug, dose and route have been ordered for the patient. This patient request must be documented in the MAR. $ Given 10/03/2021 9:53 AM CDT 10 mg $ Given 10/03/2021 6:03 AM CDT 10 mg $ Given 10/03/2021 12:02 AM CDT 10 mg oxyCODONE (immediate release) (Roxicodone) tablet 10 mg 10 mg, Oral, EVERY 4 HOURS PRN, Severe Pain, Starting on Tue10/08/21 at 0716, Until Tue10/13/21 at 2011, Patient preference for lesser PRN pain meds may be honored when the patient requests a less strong medication, a lower dose, or a less intrusive route of administration when the lesser drug, dose and route have been ordered for the patient. This patient request must be documented in the MAR. $ Given 10/13/2021 4:24 PM CDT 10 mg $ Given 10/13/2021 7:35 AM CDT 10 mg $ Given 10/12/2021 9:20 PM CDT 10 mg oxyCODONE (immediate release) (Roxicodone) tablet 5 mg 5 mg, Enteral Tube, EVERY 4 HOURS PRN, Moderate Pain, cpot >2, Starting on [place] 10/01/21 at 0809, Until Tue10/02/21 at 09, Patient preference for lesser PRN pain meds may be honored when the patient requests a less strong medication, a lower dose, or a less intrusive route of administration when the lesser drug, dose and route have been ordered for the patient. This patient request must be documented in the MAR. $ Given 10/02/2021 9:13 AM CDT 5 mg NG Tu be oxyCODONE (immediate release) (Roxicodone) tablet 5 mg 5 mg, Enteral Tube, EVERY 4 HOURS PRN, Severe Pain, cpot >2 for one hour after admin of 5mg jose, Starting on Tue10/01/21 at 0809, Until Tue10/02/21 at 09, Patient preference for lesser PRN pain meds may be honored when the patient requests a less strong medication, a lower dose, or a less intrusive route of administration when the lesser drug, dose and route have been ordered for the patient. This patient request must be documented in the MAR. $ Given 10/01/2021 11:18 PM CDT 5 mg OG T ube oxyCODONE (immediate release) (Roxicodone) tablet 5 mg 5 mg, Oral, EVERY 4 HOURS PRN, Moderate Pain, Starting on Tue10/02/21 at 0922, Until Tue10/03/21 at 0957, Patient preference for lesser PRN pain meds may be honored when the patient requests a less strong medication, a lower dose, or a less intrusive route of administration when the lesser drug, dose and route have been ordered for the patient. This patient request must be documented in the MAR. $ Given 10/02/2021 11:10 AM CDT 5 mg oxyCODONE (immediate release) (Roxicodone) tablet 5 mg 5 mg, Oral, EVERY 4 HOURS PRN, Moderate Pain, Severe Pain, Starting on Tue10/06/21 at 1505, Until Tue10/08/21 at 0715, Patient preference for lesser PRN pain meds may be honored when the patient requests a less strong medication, a lower dose, or a less intrusive route of administration when the lesser drug, dose and route have been ordered for the patient. This patient request must be documented in the MAR. $ Given 10/07/2021 4:06 PM CDT 5 mg oxyCODONE (immediate release) (Roxicodone) tablet 5 mg 5 mg, Oral, EVERY 4 HOURS PRN, Moderate Pain, Starting on Tue10/08/21 at 0716, Until Tue10/13/21 at 2011, Patient preference for lesser PRN pain meds may be honored when the patient requests a less strong medication, a lower dose, or a less intrusive route of administration when the lesser drug, dose and route have been ordered for the patient. This patient request must be documented in the MAR. polyethylene glycol 3350 (Miralax) packet 17 g 17 g, Enteral Tube, DAILY, First dose on Tue09/29/21 at 1345, Until Discontinued, Mix in 8 ounces of water, juice, soda, coffee or tea prior to administration $ Given 10/01/2021 9:10 AM CDT 17 g OG Tube $ Given 09/30/2021 8:24 AM CDT 17 g OG Tube $ Given 09/29/2021 3:06 PM CDT 17 g OG Tube polyethylene glycol 3350 (Miralax) packet 17 g 17 g, Enteral Tube, 2 TIMES DAILY, First dose (after last modification) on Tue10/01/21 at 2100, Until Discontinued, Mix in 8 ounces of water, juice, soda, coffee or tea prior to administration $ Given 10/02/2021 9:13 AM CDT 17 g NG Tube $ Given 10/01/2021 8:49 PM CDT 17 g OG Tube polyethylene glycol 3350 (Miralax) packet 17 g 17 g, Oral, 2 TIMES DAILY, First dose (after last modification) on Tue10/02/21 at 2100, Until Discontinued, Mix in 8 ounces of water, juice, soda, coffee or tea prior to administration $ Given 10/12/2021 9:20 PM CDT 17 g $ Given 10/11/2021 8:18 PM CDT 17 g $ Given 10/11/2021 9:39 AM CDT 17 g potassium chloride (Klor-Con) packet 20 mEq 20 mEq, Enteral Tube, ONCE, 1 dose, On Tue10/01/21 at 0230, DISSOLVE IN 120 ML OF COLD WATER OR JUICE AND DRINK SLOWLY $ Given 10/01/2021 2:38 AM CDT 20 mEq OG Tube potassium chloride (Klor-Con) packet 20 mEq 20 mEq, Enteral Tube, ONCE, 1 dose, On Tue10/02/21 at 0700, DISSOLVE IN 120 ML OF COLD WATER OR JUICE AND DRINK SLOWLY $ Given 10/02/2021 6:56 AM CDT 20 mEq OG Tube potassium chloride (Klor-Con) packet 40 mEq 40 mEq, Enteral Tube, ONCE, 1 dose, On Tue10/01/21 at 0845, DISSOLVE IN 120 ML OF COLD WATER OR JUICE AND DRINK SLOWLY $ Given 10/01/2021 9:10 AM CDT 40 mEq OG Tube potassium phosphate 30 mmol in d5w 260 mL bolus premix 30 mmol, at 43.33 mL/hr, Administer over 6 Hours, Intravenous, ONCE, 1 dose, On Tue09/30/21 at 0500, 3 mmol phosphate = 4.4 mEq potassium $ New Bag/Syringe 09/30/2021 5:27 AM CDT 30 mmol 43.33 mL/hr pregabalin (Lyrica) capsule 75 mg 75 mg, Oral, 3 TIMES DAILY, First dose on Tue10/11/21 at 1400, Until Discontinued $ Given 10/11/2021 8:19 PM CDT 75 mg $ Given 10/11/2021 1:38 PM CDT 75 mg prochlorperazine (Compazine) injection 10 mg 10 mg, Intravenous, ONCE PRN, Nausea/Vomiting, 1 dose, Starting on Tue10/06/21 at 1148, Until Tue10/06/21 at 1247, Second choice, use if first choice was ineffective., PACU $ Given 10/06/2021 12:47 PM CDT 10 mg propofol (Diprivan) infusion 0-50 mcg/kg/min ? 90.7 kg (0-27.21 mL/hr), Intravenous, CONTINUOUS, Starting on Tue09/27/21 at 2145, Until Tue09/27/21 at 2210, Above RASS goal: Assess and treat pain first if CPOT greater than 2. If agitation persists increase rate per order. At RASS goal and no change in 4 hours: Decrease rate per order. Below RASS goal (unarousable): Hold infusion until at goal RASS then restart at 50% previous rate. If significant hemodynamic changes notify physician for instructions. Notify physician for inability to reach goals despite maximal dosage. Note: The CPOT goal should be achieved first with the use of the ordered analgesic medication prior to targeting RASS goal with the sedative. Vial and Tubing should be changed and/or discarded every 12 hours., Titration Parameters: Standard Parameters, Indication: Sedation, Initiate infusion at: 5 mcg/kg/min, Titrate infusion by: 5 mcg/kg/min, Titrate every: 2 minutes, Notify physician if: Unachievable RASS goal despite max dose, Titration Priority: 2nd Rate Change 09/27/2021 9:22 PM CDT 5.1452 mcg/kg/min 2.8 mL/hr $ New Bag/Syringe 09/27/2021 9:22 PM CDT 5 mcg/kg/min 2.72 mL/hr saline nasal spray ([place]; Baby [place]) 0.65 % nasal spray 2 spray 2 spray, Each Nostril, EVERY 2 HOURS PRN, Dry Nose, Starting on 10/10/21 at 1945, Until Tue10/13/21 at 2010 $ Given 10/10/2021 8:07 PM CDT 2 sprays senna (Senokot) tablet 17.2 mg 17.2 mg, Enteral Tube, DAILY, First dose on Tue09/29/21 at 1345, Until Discontinued $ Given 10/02/2021 9:14 AM CDT 17.2 mg NG Tu be $ Given 10/01/2021 9:11 AM CDT 17.2 mg OG Tube $ Given 09/30/2021 8:24 AM CDT 17.2 mg OG Tube senna (Senokot) tablet 17.2 mg 17.2 mg, Oral, DAILY, First dose (after last modification) on Tue10/03/21 at 0900, Until Discontinued $ Given 10/09/2021 9:05 AM CDT 17.2 mg $ Given 10/08/2021 8:01 AM CDT 17.2 mg $ Given 10/07/2021 8:15 AM CDT 17.2 mg senna (Senokot) tablet 17.2 mg 17.2 mg, Oral, 2 TIMES DAILY, First dose (after last modification) on Tue10/09/21 at 2100, Until Discontinued $ Given 10/13/2021 7:36 AM CDT 17.2 mg $ Given 10/12/2021 9:20 PM CDT 17.2 mg $ Given 10/12/2021 10:00 AM CDT 17.2 mg sodium bicarbonate 8.4 % 150 mEq in dextrose 5 % 1,000 mL IVF at 150 mL/hr, Intravenous, CONTINUOUS, Starting on Tue09/28/21 at 1900, Until Tue09/30/21 at 1234, Controlled Room Temperature $ New Bag/Syringe 09/30/2021 5:29 AM CDT 150 mL/hr $ New Bag/Syringe 09/29/2021 2:17 PM CDT 150 mL /hr $ New Bag/Syringe 09/29/2021 4:11 AM CDT 150 mL /hr sodium chloride tablet 1 g 1 g, Oral, 3 TIMES DAILY WITH MEALS, First dose on [place] 10/08/21 at 1230, Until Discontinued $ Given 10/11/2021 9:39 AM CDT 1 g $ Given 10/10/2021 7:25 PM CDT 1 g $ Given 10/10/2021 2:22 PM CDT 1 g succinylcholine (Anectine) injection Intravenous, CODE PRN, Starting on 09/27/21 at 2112, Until 09/27/21 at 2112 $ Given 09/27/2021 9:12 PM CDT 100 mg tranexamic acid (Cyklokapron) 1,000 mg in 0.9% NaCl IV 110 mL bolus 1,000 mg, at 220 mL/hr, Intravenous, ONCE, 1 dose, On 09/27/21 at 2145 $ Bolus New Bag 09/27/2021 9:35 PM CDT 1,000 mg 220 mL/hr tranexamic acid (Cyklokapron) 1,000 mg in 0.9% NaCl IV 110 mL bolus 1,000 mg, at 13.75 mL/hr, Intravenous, ONCE, 1 dose, On 09/27/21 at 2145 $ New Bag/Syringe 09/27/2021 10:45 PM CDT 1,000 mg 13.75 mL/hr traZODone (Desyrel) tablet 50 mg 50 mg, Oral, AT BEDTIME, First dose on 10/10/21 at 2100, Until Discontinued $ Given 10/12/2021 9:21 PM CDT 50 mg $ Given 10/11/2021 8:19 PM CDT 50 mg $ Given 10/10/2021 8:08 PM CDT 50 mg aryxj-rrh-cvuzfjei (HOG) enema 360 mL 360 mL, Rectal, ONCE, 1 dose, On [place] 10/01/21 at 1215 $ Given 10/01/2021 2:00 PM CDT 360 mL documented in this encounter Active and Recently Administered Medications Times are shown in CDT. Scheduled Medication Order 10/11/2021 10/12/2021 10/13/2021 0.9% NaCl injection 3 mL(Linked Group 1) 3 mL, Intracatheter, EVERY 8 HOURS, First dose on 09/27/21 at 2200, Until Discontinued, Flush peripheral IV catheter with 3 mL of normal saline every 8 hours. 0546 ($ Given - Provider: John Hurst RN)1338 ($ Given - Provider: Eder Palencia RN)2019 ($ Given - Provider: John Hurst RN) 0456 ($ Given - Provider: John Hurst RN)1804 (Not Administered - Provider: Jyoti Patiño RN - Reason: Refused-Patient)2122 ($ Given - Provider: Jyoti Benz RN) 0553 ($ Given - Provider: Jyoti Benz RN)1432 (Not Administered - Provider: Jyoti Patiño, REYES - Reason: Refused-Patient) acetaminophen (Tylenol) tablet 1,000 mg 1,000 mg, Oral, 3 TIMES DAILY (diuretics and nitrates), First dose (after last modification) on Tue10/09/21 at 1200, Until Discontinued, Patient preference for lesser PRN pain meds may be honored when the patient requests a less strong medication, a lower dose, or a less intrusive route of administration when the lesser drug, dose and route have been ordered for the patient. This patient request must be documented in the MAR. 0938 ($ Given - Provider: Eder Palencia RN)1338 ($ Given - Provider: Eder Palencia RN)1718 ($ Given - Provider: Eder Palencia RN) 0832 ($ Given - Provider: Jyoti Patiño RN)1134 ($ Given - Provider: Jyoti Patiño RN)1636 ($ Given - Provider: Jyoti Patiño RN) 0735 ($ Given - Provider: Jyoti Patiño RN)1358 (Not Administered - Provider: Jyoti Patiño RN - Reason: Patient sleeping)1422 ($ Given - Provider: Jyoti Patiño RN) amoxicillin-clavulanate (Augmentin) tablet 875 mg 875 mg, Oral, 2 TIMES DAILY, 14 doses, First dose on Tue10/08/21 at 1230, Last dose on Tue10/14/21 at 2100, Administer with food to decrease GI side effects., Indication for anti-infective therapy: Surgical prophylaxis 0938 ($ Given - Provider: Eder Palencia RN)2019 ($ Given - Provider: John Hurst RN) 0832 ($ Given - Provider: Jyoti Patiño RN)2121 ($ Given - Provider: Jyoti Benz RN) 0735 ($ Given - Provider: Jyoti Patiño RN) bisacodyl (Dulcolax) suppository 10 mg 10 mg, Rectal, DAILY, First dose on Tue10/01/21 at 1230, Until Discontinued 0939 ($ Given - Provider: Eder Palencia RN) 1155 (Not Administered - Provider: Jyoti Patiño RN - Reason: Refused-Patient) 0735 ($ Given - Provider: Jyoti Patiño RN) chlorhexidine (Peridex) 0.12 % oral solution 15 mL (CANCELED) 15 mL, Mouth/Throat, 2 TIMES DAILY, First dose on Tue09/27/21 at 2145, Until Discontinued, Swab oral mucosa for 30 seconds. Do not brush teeth immediately after use. . WASTE DISPOSAL INSTRUCTIONS: Black Bin Disposal required. 0939 ($ Given - Provider: Eder Palencia RN) chlorhexidine (Peridex) 0.12 % oral solution 15 mL 15 mL, Mouth/Throat, 4 TIMES DAILY AFTER MEALS AND AT BEDTIME, First dose (after last modification) on Tue10/11/21 at 1300, Until Discontinued, Swab oral mucosa for 30 seconds. Do not brush teeth immediately after use. . WASTE DISPOSAL INSTRUCTIONS: Black Bin Disposal required. 1339 ($ Given - Provider: Eder Palencia RN)1718 ($ Given - Provider: Eder Palencia RN)202 ($ Given - Provider: John Hurst RN) 0833 ($ Given - Provider: Jyoti Patiño RN)1514 (Not Administered - Provider: Jyoti Patiño RN - Reason: Refused-Patient)2007 (Not Administered - Provider: Jyoti Benz RN - Reason: Patient sleeping)2122 ($ Given - Provider: Jyoti Benz RN) 0816 (Not Administered - Provider: Jyoti Patiño RN - Reason: See Comments - Comment: pt already took)1422 ($ Given - Provider: Jyoti Patiño RN)1900 (Due) cyclobenzaprine (Flexeril) tablet 10 mg (CANCELED) 10 mg, Oral, 3 TIMES DAILY, First dose (after last modification) on Tue10/09/21 at 0900, Until Discontinued 0938 ($ Given - Provider: Eder Palencia RN) docusate sodium (Colace) capsule 100 mg 100 mg, Oral, DAILY, First dose on Tue10/09/21 at 1415, Until Discontinued 0938 ($ Given - Provider: Eder Palencia RN) 0832 ($ Given - Provider: Jyoti Patiño RN) 0736 ($ Given - Provider: Jyoti Patiño RN) enoxaparin (Lovenox) injection 30 mg 30 mg, Subcutaneous, EVERY 12 HOURS, First dose on Tue10/12/21 at 2100, Until Discontinued, (for prefilled syringes) do not expel air bubble from the syringe prior to the injection Remind Patient to not rub injection site. Could cause hematoma. 2120 ($ Given - Provider: Jyoti Benz RN) 0816 ($ Given - Provider: Jyoti Patiño RN) famotidine (Pepcid) tablet 20 mg 20 mg, Oral, 2 TIMES DAILY, First dose (after last modification) on Tue10/02/21 at 2100, Until Discontinued 0938 ($ Given - Provider: Eder Palencia RN)2019 ($ Given - Provider: John Hurst RN) 0833 ($ Given - Provider: Jyoti Patiño RN)2120 ($ Given - Provider: Jyoti Benz RN) 0735 ($ Given - Provider: Jyoti Patiño RN) gabapentin (Neurontin) capsule 600 mg (CANCELED) 600 mg, Oral, 3 TIMES DAILY, First dose (after last modification) on Tue10/11/21 at 1400, Until Discontinued 133 ($ Given - Provider: Eder Palencia RN)2019 ($ Given - Provider: John Hurst RN) 0833 ($ Given - Provider: Jytoi Patiño, REYES) gabapentin (Neurontin) capsule 900 mg (CANCELED) 900 mg, Oral, 3 TIMES DAILY, First dose (after last modification) on Tue10/10/21 at 0900, Until Discontinued 0939 ($ Given - Provider: Eder Palencia RN) gabapentin (Neurontin) capsule 900 mg 900 mg, Oral, 3 TIMES DAILY, First dose (after last modification) on Tue10/12/21 at 1400, Until Discontinued 1636 ($ Given - Provider: Jyoti Patiño RN)212 ($ Given - Provider: Jyoti Benz RN) 0735 ($ Given - Provider: Jyoti Patiño, REYES)1422 ($ Given - Provider: Jyoti Patiño RN) heparin injection 5,000 Units (CANCELED) 5,000 Units, Subcutaneous, EVERY 8 HOURS, First dose on [place] 10/08/21 at 0600, Until Discontinued 0543 ($ Given - Provider: John Hurst RN)1338 ($ Given - Provider: Eder Palencia RN)2019 ($ Given - Provider: John Hurst RN) 0449 ($ Given - Provider: John Hurst RN)1513 (Not Administered - Provider: Jyoti Patiño RN - Reason: Refused-Patient) lidocaine (Lidoderm) 5 % patch 3 patch 3 patch, Administer over 12 Hours, EVERY 24 HOURS, First dose on [place] 10/01/21 at 0845, Until Discontinued, Apply to extremities and abdomen and remove patch after a max of 12 hours of application within a 24 hour period. 0939 ($ Applied - Provider: Eder Palencia RN)2023 (Removed - Provider: John Hurst RN) 1025 (Not Administered - Provider: Jyoti Patiño RN - Reason: Refused-Patient) 0817 (Not Administered - Provider: Jyoti Patiño RN - Reason: Refused-Patient) methocarbamol (Robaxin) tablet 750 mg 750 mg, Oral, EVERY 8 HOURS, First dose on 10/11/21 at 1400, Until Discontinued 1338 ($ Given - Provider: Eder Palencia RN)2019 ($ Given - Provider: John Hurst RN) 0449 ($ Given - Provider: John Hurst RN)1805 (Not Administered - Provider: Jyoti Patiño RN - Reason: Medication not available)212 ($ Given - Provider: Jyoti Benz RN) 0551 ($ Given - Provider: Jyoti Benz RN)1422 ($ Given - Provider: Jyoti Patiño, REYES) polyethylene glycol 3350 (Miralax) packet 17 g 17 g, Oral, 2 TIMES DAILY, First dose (after last modification) on Tue10/02/21 at 2100, Until Discontinued, Mix in 8 ounces of water, juice, soda, coffee or tea prior to administration 0939 ($ Given - Provider: Eder Palencia RN)2018 ($ Given - Provider: John Hurst RN) 0836 (Not Administered - Provider: Jyoti Patiño RN - Reason: Refused-Patient)2120 ($ Given - Provider: Jyoti Benz RN) 0816 (Not Administered - Provider: Jyoti Patiño RN - Reason: Refused-Patient) pregabalin (Lyrica) capsule 75 mg (CANCELED) 75 mg, Oral, 3 TIMES DAILY, First dose on Tue10/11/21 at 1400, Until Discontinued 1338 ($ Given - Provider: Eder Palencia RN)2019 ($ Given - Provider: John Hurst, REYES) 1000 (Not Administered - Provider: Jyoti Patiño, REYES - Reason: Refused-Patient) senna (Senokot) tablet 17.2 mg 17.2 mg, Oral, 2 TIMES DAILY, First dose (after last modification) on Tue10/09/21 at 2100, Until Discontinued 0938 ($ Given - Provider: Eder Palencia RN)2019 ($ Given - Provider: John Hurst RN) 1000 ($ Given - Provider: Jyoti Patiño, REYES)2120 ($ Given - Provider: Jyoti Benz, RN) 0736 ($ Given - Provider: Jyoti Patiño, REYES) sodium chloride tablet 1 g (CANCELED) 1 g, Oral, 3 TIMES DAILY WITH MEALS, First dose on [place] 10/08/21 at 1230, Until Discontinued 0939 ($ Given - Provider: Eder Palencia RN) traZODone (Desyrel) tablet 50 mg 50 mg, Oral, AT BEDTIME, First dose on 10/10/21 at 2100, Until Discontinued 2019 ($ Given - Provider: John Hurst RN) 2120 ($ Given - Provider: Jyoti Benz RN) [id number]-pedblubo (HOG) enema 360 mL 360 mL, Rectal, ONCE, 1 dose, On Tue10/13/21 at 0915 1432 (Not Administered - Provider: Jyoti Patiño, REYES - Reason: Refused-Patient) PRN Medication Order 10/11/2021 10/12/2021 10/13/2021 0.9% NaCl injection 1-10 mL(Linked Group 1) 1-10 mL, Intracatheter, PRN, Other, peripheral line flush, Starting on Tue09/27/21 at 2056, Until Tue10/13/21 at 2010, Flush peripheral IV catheter with 1-10 mL of normal saline before and after medications and prn to clear blood from the line or to verify patency. morphine injection 2 mg (CANCELED) 2 mg, Intravenous, EVERY 4 HOURS PRN, Break through pain, Starting on Tue10/11/21 at 0116, Until Tue10/12/21 at 0705, Patient preference for lesser PRN pain meds may be honored when the patient requests a less strong medication, a lower dose, or a less intrusive route of administration when the lesser drug, dose and route have been ordered for the patient. This patient request must be documented in the MAR. 0122 ($ Given - Provider: John Hurst RN) oxyCODONE (immediate release) (Roxicodone) tablet 10 mg(Linked Group 2) 10 mg, Oral, EVERY 4 HOURS PRN, Severe Pain, Starting on Tue10/08/21 at 0716, Until Tue10/13/21 at 2010, Patient preference for lesser PRN pain meds may be honored when the patient requests a less strong medication, a lower dose, or a less intrusive route of administration when the lesser drug, dose and route have been ordered for the patient. This patient request must be documented in the MAR. 0007 ($ Given - Provider: John Hurst RN)0543 ($ Given - Provider: John uHrst RN)0938 ($ Given - Provider: Eder Palencia RN)1338 ($ Given - Provider: Eder Palencia RN)1718 ($ Given - Provider: Eder Palencia RN)2322 ($ Given - Provider: John Hurst RN) 0449 ($ Given - Provider: John Hurst RN)1134 ($ Given - Provider: Jyoti Patiño RN)1636 ($ Given - Provider: Jyoti Patiño RN)2120 ($ Given - Provider: Jyoti Benz RN) 0735 ($ Given - Provider: Jyoti Patiño RN)1624 ($ Given - Provider: Jyoti Patiño RN) oxyCODONE (immediate release) (Roxicodone) tablet 5 mg(Linked Group 2) 5 mg, Oral, EVERY 4 HOURS PRN, Moderate Pain, Starting on Tue10/08/21 at 0716, Until Tue10/13/21 at 2010, Patient preference for lesser PRN pain meds may be honored when the patient requests a less strong medication, a lower dose, or a less intrusive route of administration when the lesser drug, dose and route have been ordered for the patient. This patient request must be documented in the MAR. 0007 (See Alternative - Provider: John Hurst RN)0543 (See Alternative - Provider: John Hurst RN)0938 (See Alternative - Provider: Eder Palencia, RN)1338 (See Alternative - Provider: Eder Palencia RN)1718 (See Alternative - Provider: Eder Palencia RN)2322 (See Alternative - Provider: John Hurst RN) 0449 (See Alternative - Provider: John Hurst RN)1134 (See Alternative - Provider: Jyoti Patiño, REYES)1636 (See Alternative - Provider: Jyoti Patiño RN)2120 (See Alternative - Provider: Jyoti Benz RN) 0735 (See Alternative - Provider: Jyoti Patiño, REYES)1624 (See Alternative - Provider: Jyoti Patiño RN) saline nasal spray ([place]; Baby [place]) 0.65 % nasal spray 2 spray 2 spray, Each Nostril, EVERY 2 HOURS PRN, Dry Nose, Starting on 10/10/21 at 1945, Until Tue10/13/21 at 2010 Linked Groups Order Group 1: SALINE LOCK, INSERT AND MAINTAIN (CANCELED) Routine, CONTINUOUS, Starting on [place] 09/27/21 at 2100, Until Specified, New collection, Task Completed: Yes And 0.9% NaCl injection 3 mLJump to med 3 mL, Intracatheter, EVERY 8 HOURS, First dose on Tue09/27/21 at 2200, Until Discontinued, Flush peripheral IV catheter with 3 mL of normal saline every 8 hours. And 0.9% NaCl injection 1-10 mLJump to med 1-10 mL, Intracatheter, PRN, Other, peripheral line flush, Starting on [place] 09/27/21 at 2056, Until Tue10/13/21 at 2010, Flush peripheral IV catheter with 1-10 mL of normal saline before and after medications and prn to clear blood from the line or to verify patency. Group 2: oxyCODONE (immediate release) (Roxicodone) tablet 5 mgJump to med 5 mg, Oral, EVERY 4 HOURS PRN, Moderate Pain, Starting on [place] 10/08/21 at 0716, Until Tue10/13/21 at 2010, Patient preference for lesser PRN pain meds may be honored when the patient requests a less strong medication, a lower dose, or a less intrusive route of administration when the lesser drug, dose and route have been ordered for the patient. This patient request must be documented in the MAR. Or oxyCODONE (immediate release) (Roxicodone) tablet 10 mgJump to med 10 mg, Oral, EVERY 4 HOURS PRN, Severe Pain, Starting on [place] 10/08/21 at 0716, Until 10/13/21 at 2011, Patient preference for lesser PRN pain meds may be honored when the patient requests a less strong medication, a lower dose, or a less intrusive route of administration when the lesser drug, dose and route have been ordered for the patient. This patient request must be documented in the MAR. 

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
--- OUTSIDE RECORDS SUMMARY | 2024-03-26 05:39 | XMS_ITS | Encounter Summary ---
Author Organization [facility] Health Address [address] [place] [address] Care Team Providers Care Shipyard Painter Helper Name Role Phone Hussain Rushing HEALTH SERVICES COORDINATOR-UROLOGY SURGEON Unavailable [phone] Encounter Details Date Type Department Care Team (Late st Contact Info) Description 10/06/2021 Orders Only [facility]ERY [address] [place] [id number] Amanda Rinaldi, HEALTH SERVICES COORDINATOR-UROLOGY SURGEON [address] [place] [address] Injury of right kidney, subsequent encounter Social History Tobacco Use Types Packs/Day [...] No 09/28/2021 documented as of this encounter Plan of Treatment Not on file documented as of this encounter Visit Diagnoses Diagnosis Injury of right kidney, subsequent encounter- Primary documented in this encounter Care Teams Shipyard Painter Helper Relationship Specialty Start Date End Date Hussain Rushing APRN-TRAMAINE 09/28/21 documented as of this encounter
--- OUTSIDE RECORDS SUMMARY | 2024-03-26 05:39 | XMS_ITS | Encounter Summary ---
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 2:47 AM [facility] RDW-CV 15.8(H) 11.2 - 14.8 % 10/09/2021 2:47 AM [facility] MPV 10.3 9.4 - 12.9 fL 10/09/2021 2:47 AM [facility] nRBC Absolute 0.00 0 10? 3 /uL 10/09/2021 2:47 AM [facility] nRBC Auto 0.0 0 /100 WBC 10/09/2021 2:47 AM [facility] Blood BLOOD SPECIMEN / Unknown Lab Venipuncture / Unknown 10/09/2021 2:12 AM CDT 10/09/2021 2:33 AM CDT Carlota Rosario APRN-LOTTERY SALES CLERK LAB - HEMATOLOGY ORDERABLES [facility] [address] [place] [address], [facility] [phone] * PREPARE (CROSSMATCH) RBC UNIT(S), 2 Units (10/09/2021 1:17 AM CDT) Unit Description AS1 LR PRBC [facility] BLOOD BANK LAB Unit ABO O [facility] BLOOD B[facility] LAB Unit POS [facility] BLOOD [facility] LAB Product Number R02 [facility] B LOOD BANK LAB Unit Donor # [id number] [facility] BLOOD BANK LAB Unit Status released [facility] BLOO D BANK LAB Product Code [id number] [facility] BLO OD BANK LAB Blood Type Barcode 5100 [facility] BLOOD BANK LAB Expiration Date S BLOOD BANK LAB Unit Description AS1 LR PRBC [facility] BLOOD BANK LAB Unit ABO O [facility] BLOOD BANK LAB Unit POS [facility] BLOOD BANK LAB Product Number R02 [facility] B LOOD BANK LAB Unit Donor # [id number] [facility] BLOOD BANK LAB Unit Status released [facility] BLOO D BANK LAB Product Code [id number] [facility] BLO OD BANK LAB Blood Type Barcode 5100 [facility] BLOOD BANK LAB Expiration Date S BLOOD BANK LAB Blood Bank BLOOD SPECIMEN / Unknown 10/05/2021 10:27 AM CDT Marbin Mejia MD LAB - BLOOD BANK ORDERABLES [facility] BLOOD BANK LAB [address] [place] [address], [facility] [phone] * PREPARE (CROSSMATCH) RBC UNIT(S), 2 Units (10/09/2021 1:17 AM CDT) Unit Description AS1 LR PRBC [facility] BLOOD BANK LAB Unit ABO O [facility] BLOOD BANK LAB Unit POS [facility] BLOOD B[facility] LAB Product Number R02 [facility] B LOOD BANK LAB Unit Donor # [id number] [facility] BLOOD BANK LAB Unit Status released [facility] BLOO D BANK LAB Product Code [id number] [facility] BLO OD BANK LAB Blood Type Barcode 5100 [facility] BLOOD BANK LAB Expiration Date S BLOOD BANK LAB Unit Description AS1 LR PRBC [facility] BLOOD BANK LAB Unit ABO O [facility] BLOOD BANK LAB Unit POS [facility] BLOOD BANK LAB Product Number R02 [facility] B LOOD BANK LAB Unit Donor # [id number] [facility] BLOOD BANK LAB Unit Status transfused [facility] BLO OD BANK LAB Product Code [id number] [facility] BLO OD BANK LAB Blood Type Barcode 5100 [facility] BLOOD BANK LAB Expiration Date S BLOOD BANK LAB Blood Bank BLOOD SPECIMEN / Unknown 10/05/2021 10:27 AM CDT Danielle Law MD LAB - BLOOD BANK ORD ERABLES [facility] BLOOD BANK LAB [address] [place] [address], [facility] [phone] * XR CHEST 1VW PORTABLE (10/08/2021 7:40 [...] findings. Report dictated by Erinn Strange MD (financial institution president). I, Dr. AIDEN MCKEON have personally reviewed [...] findings. Report dictated by Erinn Strange MD (financial institution president). I, Dr. AIDEN MCKEON have personally reviewed and interpreted this examination/study. This report was electronically signed by AIDEN MCKEON on 10/08/2021 2:03 PM . Carlota Rosario SUPERVISOR ELECTRONICS INSPECTION-[employer]OTTERY SALES CLERK DIAGNOSTIC IMAGIN G ORDERABLES * PHOSPHORUS BLOOD (10/08/2021 2:04 AM CDT) Phosphorus 3.2 2.8 - 5.1 mg/dL 10/08/2021 2:48 AM CDT [facility] Blood BLOOD SPECIMEN / Unknown Lab Venipuncture / Unknown 10/08/2021 2:04 AM CDT 10/08/2021 2:15 AM CDT Alexis Kay SUPERVISOR ELECTRONICS INSPECTION-LOTTERY SALES CLERK LAB - CHEMISTRY ORDERABLES [address] [address], [facility] [phone] * MAGNESIUM BLOOD (10/08/2021 2:04 AM CDT) Magnesium 1.9 1.6 - 2.6 mg/dL 10/08/2021 2:48 AM [facility] Blood BLOOD SPECIMEN / Unknown Lab Venipuncture / Unknown 10/08/2021 2:04 AM CDT 10/08/2021 2:15 AM CDT Alexis Kay SUPERVISOR ELECTRONICS INSPECTION-LOTTERY SALES CLERK LAB - CHEMISTRY ORDERABLES [facility] [address] [place] [address], [facility] [phone] * (ABNORMAL) BASIC METABOLIC PANEL (CALCIUM TOTAL) (10/08/2021 2:04 AM CDT) BUN 20 7 - 26 mg/dL 10/08/2021 2:48 AM [facility] Creatinine 1.18(H) 0.71 - 1.16 mg/dL 10/08/2021 2:48 AM [facility] Sodium 133(L) 136 - 145 mmol/L 10/08/2021 2:48 AM [facility] Potassium 4.2 3.5 - 4.5 mmol/L 10/08/2021 2:48 AM [facility] Chloride 101 98 - 107 mmol/L 10/08/2021 2:48 AM [facility] CO2 23 22 - 29 mmol/L 10/08/2021 2:48 AM [facility] Glucose 155(H) 70 - 115 mg/dL 10/08/2021 2:48 AM [facility] Calcium 8.3(L) 8.4 - 10.2 mg/dL 10/08/2021 2:48 AM [facility] Anion Gap 13 8 - 18 10/08/2021 2:48 AM [facility] BUN/Creatinine Ratio 17 7 - 23 10/08/2021 2:48 AM [facility] Osmolality Calculated 282 270 - 300 mOsm/kg 10/08/2021 2:48 AM [facility] eGFR by CKD-EPI 81(L) >=90 mL/min/1.7 3 m2 10/08/2021 2:48 AM [facility] Blood BLOOD SPECIMEN / Unknown Lab Venipuncture / Unknown 10/08/2021 2:04 AM CDT 10/08/2021 2:15 AM CDT Alexis Kay SUPERVISOR ELECTRONICS INSPECTION-LOTTERY SALES CLERK LAB - CHEMISTRY ORDERABLES Performing Organization Address [facility]/State/ZIP Co de Phone Number [facility] [address] [place] [address], [facility] [phone] * (ABNORMAL) CBC W AUTO DIFFERENTIAL (10/08/2021 2:04 AM CDT) WBC 18.0(H) 3.5 - 10.5 10? 3 /uL 10/08/2021 2:21 AM [facility] RBC 2.49(L) 4.30 - 5.70 10? 6 /uL 10/08/2021 2:21 AM [facility] Hemoglobin 7.4(L) 12.0 - 17.6 g/dL 10/08/2021 2:21 AM [facility] Hematocrit 22.5(L) 35.2 - 51.7 % 10/08/2021 2:21 AM [facility] MCV 90.4 80.7 - 98.3 fL 10/08/2021 2:21 AM [facility] MCH 29.7 26.7 - 34.0 pg 10/08/2021 2:21 AM [facility] MCHC 32.9 30.8 - 35.9 g/dL 10/08/2021 2:21 AM [facility] Platelet Count 361 150 - 400 10? 3 /uL 10/08/2021 2:21 AM [facility] RDW-SD 53.2(H) 36.0 - 50.0 fL 10/08/2021 2:21 AM [facility] RDW-CV 16.1(H) 11.2 - 14.8 % 10/08/2021 2:21 AM [facility] MPV 9.8 9.4 - 12.9 fL 10/08/2021 2:21 AM [facility] nRBC Absolute 0.02(H) 0 10? 3 /uL 10/08/2021 2:21 AM [facility] nRBC Auto 0.1(H) 0 /100 WBC 10/08/2021 2:21 AM [facility] Neutrophils % 84.1(H) 35.0 - 70.0 % 10/08/2021 2:21 AM [facility] Lymphocytes % 6.5(L) 20.0 - 43.0 % 10/08/2021 2:21 AM [facility] Monocytes % 6.9 5.0 - 13.0 % 10/08/2021 2:21 AM [facility] Eosinophils % 0.7 0.0 - 6.0 % 10/08/2021 2:21 AM [facility] Basophil % 0.2 0.0 - 2.0 % 10/08/2021 2:21 AM [facility] Neutrophils Absolute 15.14(H) 1.60 - 7.00 10? 3 /uL 10/08/2021 2:21 AM [facility] Lymphocyte Absolute 1.16 1.10 - 3.90 10? 3 /uL 10/08/2021 2:21 AM [facility] Monocytes Absolute 1.24(H) 0.26 - 1.07 10? 3 /uL 10/08/2021 2:21 AM [facility] Eosinophils Absolute 0.13 0.00 - 0.47 10? 3 /uL 10/08/2021 2:21 AM [facility] Basophils Absolute 0.03 0.00 - 0.08 10? 3 /uL 10/08/2021 2:21 AM [facility] Immature Granulocytes % 1.6(H) 0.0 - 1.0 % 10/08/2021 2:21 AM [facility] Immature Granulocytes Absolute 0.28 10/08/2021 2:21 AM [facility] Blood BLOOD SPECIMEN / Unknown Lab Venipuncture / Unknown 10/08/2021 2:04 AM T 10/08/2021 2:16 AM [facility] Alexis Kay SUPERVISOR ELECTRONICS INSPECTION-LOTTERY SALES CLERK LAB - HEMATOLOG Y ORDERABLES Performing Organization Address City/State/[facility] Co de Phone Number [address] [address], [facility] [phone] * XR CHEST 1VW PORTABLE (10/07/2021 9:39 [...] findings. Report dictated by Erinn Strange MD (financial institution president). I, Dr. AIDEN MCKEON have personally reviewed [...] findings. Report dictated by Erinn Strange MD (financial institution president). I, Dr. AIDEN MCKEON have personally reviewed and interpreted this examination/study. This report was electronically signed by AIDEN MCKEON on 10/08/2021 2:03 PM . Alexis Kay SUPERVISOR ELECTRONICS INSPECTION-LOTTERY SALES CLERK DIAGNOSTIC IMAG ING ORDERABLES * CT THORACIC [...] normal. Report dictated by Erinn Strange MD (financial institution president). Dr. Sangeeta Connor M.D. have personally reviewed [...] normal. Report dictated by Erinn Strange MD (financial institution president). Dr. Sangeeta Connor M.D. have personally reviewed and interpretedthis examination/study. This report was electronically signed by Sangeeta LOPEZ M.D. on 10/07/2021 5:13 PM . Alexis WHEELER DIAGNOSTIC IMAG ING ORDERABLES * (ABNORMAL) BASIC METABOLIC PANEL (CALCIUM TOTAL) (10/07/2021 2:45 AM CDT) BUN 19 7 - 26 mg/dL 10/07/2021 3:28 AM [facility] Creatinine 1.25(H) 0.71 - 1.16 mg/dL 10/07/2021 3:28 AM [facility] Sodium 134(L) 136 - 145 mmol/L 10/07/2021 3:28 AM [facility] Potassium 4.4 3.5 - 4.5 mmol/L 10/07/2021 3:28 AM [facility] Chloride 102 98 - 107 mmol/L 10/07/2021 3:28 AM [facility] CO2 24 22 - 29 mmol/L 10/07/2021 3:28 AM [facility] Glucose 119(H) 70 - 115 mg/dL 10/07/2021 3:28 AM [facility] Calcium 8.2(L) 8.4 - 10.2 mg/dL 10/07/2021 3:28 AM [facility] Anion Gap 12 8 - 18 10/07/2021 3:28 AM [facility] BUN/Creatinine Ratio 15 7 - 23 10/07/2021 3:28 AM [facility] Osmolality Calculated 281 270 - 300 mOsm/kg 10/07/2021 3:28 AM [facility] eGFR by CKD-EPI 76(L) >=90 mL/min/1.7 3 m2 10/07/2021 3:28 AM [facility] Blood BLOOD SPECIMEN / Unknown Lab Venipuncture / Unknown 10/07/2021 2:45 AM CDT 10/07/2021 3:01 AM CDT Alexis WHEELER LAB - CHEMISTRY ORDERABLES [address] [address], [facility] [phone] * PHOSPHORUS BLOOD (10/07/2021 2:45 AM CDT) Pathologist [facility] Phosphorus 3.6 2.8 - 5.1 mg/dL 10/07/2021 3:28 AM CDT [facility] Blood BLOOD SPECIMEN / Unknown Lab Venipuncture / Unknown 10/07/2021 2:45 AM CDT 10/07/2021 3:01 AM CDT Alexis R Eliza SUPERVISOR ELECTRONICS INSPECTION-[employer]OTTERY SALES CLERK LAB - CHEMISTRY ORDERABLES Performing Organization Address [facility]/ZIP Co de Phone Number [address] [address], [facility] [phone] * MAGNESIUM BLOOD (10/07/2021 2:45 AM CDT) [facility] Magnesium 2.1 1.6 - 2.6 mg/dL 10/07/2021 3:28 AM CDT [facility] Blood BLOOD SPECIMEN / Unknown Lab Venipuncture / Unknown 10/07/2021 2:45 AM CDT 10/07/2021 3:01 AM CDT Alexis R Eliza SUPERVISOR ELECTRONICS INSPECTION-LOTTERY SALES CLERK LAB - CHEMISTRY ORDERABLES Performing Organization Address City/[facility]/ZIP Co de Phone Number [address] [address], [facility] [phone] * (ABNORMAL) CBC W/O DIFFERENTIAL (10/07/2021 2:45 AM CDT) Pathologist [facility] WBC 15.8(H) 3.5 - 10.5 10? 3 /uL 10/07/2021 3:09 AM CDT [facility] RBC 2.65(L) 4.30 - 5.70 10? 6 /uL 10/07/2021 3:09 AM CDT [facility] Hemoglobin 7.8(L) 12.0 - 17.6 g/dL 10/07/2021 3:09 AM [facility] Hematocrit 23.3(L) 35.2 - 51.7 % 10/07/2021 3:09 AM [facility] MCV 87.9 80.7 - 98.3 fL 10/07/2021 3:09 AM [facility] MCH 29.4 26.7 - 34.0 pg 10/07/2021 3:09 AM [facility] MCHC 33.5 30.8 - 35.9 g/dL 10/07/2021 3:09 AM [facility] Platelet Count 327 150 - 400 10? 3 /uL 10/07/2021 3:09 AM [facility] RDW-SD 50.7(H) 36.0 - 50.0 fL 10/07/2021 3:09 AM [facility] RDW-CV 15.8(H) 11.2 - 14.8 % 10/07/2021 3:09 AM [facility] MPV 10.2 9.4 - 12.9 fL 10/07/2021 3:09 AM [facility] nRBC Absolute 0.02(H) 0 10? 3 /uL 10/07/2021 3:09 AM [facility] nRBC Auto 0.1(H) 0 /100 WBC 10/07/2021 3:09 AM [facility] Blood BLOOD SPECIMEN / Unknown Lab Venipuncture / Unknown 10/07/2021 2:45 AM CDT 10/07/2021 3:01 AM CDT Alexis Kay SUPERVISOR ELECTRONICS INSPECTION-LOTTERY SALES CLERK LAB - HEMATOLOG Y ORDERABLES [facility] [address] [place] [address], [facility] [phone] * CT 3D RECON W INDEPENDENT WKSN [...] recommended. Report dictated by Elmer Gomez MD (financial institution president). I, Dr. Bryce Walsh MD have personally [...] recommended. Report dictated by Elmer Gomez MD (financial institution president). I, Dr. Bryce Walsh MD have personally reviewed and interpreted this examination/study. This report was electronically signed by Bryce Walsh MD on10/07/2021 1:50 PM . Dar Kilpatrick MD CT ORDERABLES * [place] OARM SURGERY (10/06/2021 10:31 AM CDT) Narrative [facility] RAD[facility] - 10/06/2021 10:32 AM CDT Fluoroscopy was used for this exam in the OR. Please see the Operative report. Marbin Mejia MD FLUOROSCOPY ORDE [facility] Performing Organization Address [facility] Co de Phone Number [facility] * [place] MCKENNA SURGERY (10/06/2021 10:31 AM CDT) Narrative [facility] - 10/06/2021 10:31 AM CDT Fluoroscopy was used for this exam in the OR. Please see the Operative report. Marbin Mejia MD [facility] Performing Organization Address [facility] Co de Phone Number [facility] * TRANSFUSE RED BLOOD CELL LEUKOREDUCED UNIT(S) (10/06/2021 10:27 AM CDT) Marbin Mejia MD NURSING - BLOOD PROD TRANSFUSION * (ABNORMAL) BLOOD GAS+COOX+LYTES+METAB ARTERIAL POCT (10/06/2021 10:21 AM CDT) pH Arterial 7.39 7.35 - 7.45 pH 10/06/2021 10:21 AM CDT [facility] pO2 Arterial 169(H) 80 - 100 mmHg 10/06/2021 10:21 AM CDT [facility] pCO2 Arterial 43 35 - 45 mmHg 10:21 AM CDT [facility] HCO3 Arterial 26 20 - 30 mmol/l 10/06/2021 10:21 AM CDT [facility] BE Arterial 0.9 -2.0 - 2.0 mmol/L 10/06/2021 10:21 AM [facility] Oxyhemoglobin Arterial 97.2 % 10/06/2021 10:21 AM [facility] Dexoyhemoglobin (HHB) % 0.3 % 10/06/2021 10:21 AM [facility] Methemoglobin <0.8 0.0 - 2.0 % 10/06/2021 10:21 AM [facility] Carboxyhemoglobin 2.2(H) 0.0 - 2.0 % 2021 10:21 AM [facility] Comment:Carboxyhemoglobin No rmal Concentration: Non-smokers: 0-2%; Smokers: 0- 9%; Toxic: >20% O2 Content Arterial 10.8 Interpret within clinical context mg/dL 10/06/2021 10:21 AM [facility] Hemoglobin by COOX 7.6(L) 12.0 - 17.6 g/dL 10/06/2021 10:21 AM [facility] O2 Saturation Arterial 100 90 - 100 % 10/06/2021 10:21 AM [facility] Sodium Whole Blood 136 135 - 145 mmol/L 10/06/2021 10:21 AM [facility] Potassium Whole Blood 4.8 3.5 - 5.5 mmol/L 10/06/2021 10:21 AM [facility] Chloride WB 105 101 - 111 mmol/L 10/06/2021 10:21 AM [facility] Calcium Ionized 1.15 mmol/L 10:21 AM [facility] Ionized Calcium pH Adjusted 1.15(L) 1.19 - 1.34 mmol/L 10/06/2021 10:21 AM [facility] Anion Gap (AG) Arterial 10 8 - 18 mmol/L 10/06/2021 10:21 AM [facility] Glucose WB 116(H) 70 - 105 mg/dL 10/06/2021 10:21 AM [facility] Lactic Acid Whole Blood 1.0 <=2.0 mmol/L 10/06/2021 10:21 AM [facility] Blood, arterial ARTERIAL BLOOD SPECIMEN / Unknown 10/06/2021 10:21 AM CDT 10/06/2021 10:21 AM CDT Dar Kilpatrick MD LAB - POINT OF CAR E ORDERABLES [facility] [address] [place] [address], [facility] [phone] * (ABNORMAL) BLOOD GAS+COOX+LYTES+METAB ARTERIAL POCT (10/06/2021 9:23 AM [facility]) pH Arterial 7.41 7.35 - 7.45 pH 10/06/2021 9:23 AM [facility] pO2 Arterial 224(H) 80 - 100 mmHg 10/06/2021 9:23 AM [facility] pCO2 Arterial 42 35 - 45 mmHg 9:23 AM [facility] HCO3 Arterial 27 20 - 30 mmol/l 10/06/2021 9:23 AM [facility] BE Arterial 1.8 -2.0 - 2.0 mmol/L 10/06/2021 9:23 AM [facility] Oxyhemoglobin Arterial 96.3 % 10/06/2021 9:23 AM [facility] Dexoyhemoglobin (HHB) % 1.0 % 10/06/2021 9:23 AM [facility] Methemoglobin 1.0 0.0 - 2.0 % 10/06/2021 9:23 AM [facility] Carboxyhemoglobin 1.8 0.0 - 2.0 % 2021 9:23 AM [facility] Comment:Carboxyhemoglobin No rmal Concentration: Non-smokers: 0-2%; Smokers: 0- 9%; Toxic: >20% O2 Content Arterial 12.1 Interpret within clinical context mg/dL 10/06/2021 9:23 AM [facility] Hemoglobin by COOX 8.5(L) 12.0 - 17.6 g/dL 10/06/2021 9:23 AM [facility] O2 Saturation Arterial 99 90 - 100 % 10/06/2021 9:23 AM [facility] Sodium Whole Blood 135 135 - 145 mmol/L 10/06/2021 9:23 AM [facility] Potassium Whole Blood 4.4 3.5 - 5.5 mmol/L 10/06/2021 9:23 AM [facility] Chloride WB 104 101 - 111 mmol/L 10/06/2021 9:23 AM [facility] Calcium Ionized 1.15 mmol/L 9:23 AM [facility] Ionized Calcium pH Adjusted 1.15(L) 1.19 - 1.34 mmol/L 10/06/2021 9:23 AM [facility] Anion Gap (AG) Arterial 9 8 - 18 mmol/L 10/06/2021 9:23 AM [facility] Glucose WB 117(H) 70 - 105 mg/dL 10/06/2021 9:23 AM [facility] Lactic Acid Whole Blood 0.8 <=2.0 mmol/L 10/06/2021 9:23 AM [facility] Blood, arterial ARTERIAL BLOOD SPECIMEN / Unknown 10/06/2021 9:23 AM CDT 10/06/2021 9:23 AM CDT Dar Kilpatrick MD LAB - POINT OF CAR E ORDERABLES [address] [address], [place] [phone] * BLOOD GAS ART+LYTES+METAB+COOX POC NOTIF (10/06/2021 9:18 AM CDT) Comment Notification Label Only - See Separate Report 10/06/2021 10:33 AM T [facility] Other MISCELLANEOUS SAMPLES / Unknown 10/06/2021 9:18 AM CDT 10/06/2021 9:21 AM CDT Nikita Rosa MD LAB - BLOOD GASES ORDERABLES [address] [address], [place] [phone] * (ABNORMAL) BLOOD GAS+COOX+LYTES+METAB ARTERIAL POCT (10/06/2021 8:31 AM [facility]) pH Arterial 7.44 7.35 - 7.45 pH 10/06/2021 8:31 AM [facility] pO2 Arterial 365(H) 80 - 100 mmHg 10/06/2021 8:31 AM [facility] pCO2 Arterial 40 35 - 45 mmHg 8:31 AM [facility] HCO3 Arterial 27 20 - 30 mmol/l 10/06/2021 8:31 AM [facility] BE Arterial 2.8(H) -2.0 - 2.0 mmol/L 10/06/2021 8:31 AM [facility] Oxyhemoglobin Arterial 96.1 % 10/06/2021 8:31 AM [facility] Dexoyhemoglobin (HHB) % 1.4 % 10/06/2021 8:31 AM [facility] Methemoglobin 1.0 0.0 - 2.0 % 10/06/2021 8:31 AM [facility] Carboxyhemoglobin 1.5 0.0 - 2.0 % 2021 8:31 AM [facility] Comment:Carboxyhemoglobin No rmal Concentration: Non-smokers: 0-2%; Smokers: 0- 9%; Toxic: >20% O2 Content Arterial 12.6 Interpret within clinical context mg/dL 10/06/2021 8:31 AM [facility] Hemoglobin by COOX 8.6(L) 12.0 - 17.6 g/dL 10/06/2021 8:31 AM [facility] O2 Saturation Arterial 99 90 - 100 % 10/06/2021 8:31 AM [facility] Sodium Whole Blood 137 135 - 145 mmol/L 10/06/2021 8:31 AM [facility] Potassium Whole Blood 4.2 3.5 - 5.5 mmol/L 10/06/2021 8:31 AM [facility] Chloride WB 103 101 - 111 mmol/L 10/06/2021 8:31 AM [facility] Calcium Ionized 1.21 mmol/L 8:31 AM CDT [facility] Ionized Calcium pH Adjusted 1.23 1.19 - 1.34 mmol/L 10/06/2021 8:31 AM CDT [facility] Anion Gap (AG) Arterial 11 8 - 18 mmol/L 10/06/2021 8:31 AM CDT [facility] Glucose WB 110(H) 70 - 105 mg/dL 10/06/2021 8:31 AM CDT [facility] Lactic Acid Whole Blood 0.7 <=2.0 mmol/L 10/06/2021 8:31 AM CDT [facility] Blood, arterial ARTERIAL BLOOD SPECIMEN / Unknown 10/06/2021 8:31 AM CDT 10/06/2021 8:31 AM CDT Dar Kilpatrick MD LAB - POINT OF CAR E ORDERABLES Performing Organization Address City/[facility]/ZIP Co de Phone Number [address] [address], [facility] [phone] * BLOOD GAS ART+LYTES+METAB+COOX POC NOTIF (10/06/2021 8:27 AM CDT) Comment Notification Label Only - See Separate Report 10/06/2021 9:32 AM CDT [facility] Other MISCELLANEOUS SAMPLES / Unknown 10/06/2021 8:27 AM CDT 10/06/2021 8:28 AM CDT Nikita Rosa MD LAB - BLOOD GASES ORDERABLES [facility] [address] [place] [address], [place] [phone] * XR CHEST 1VW PORTABLE (10/06/2021 5:18 [...] normal. Report dictated by Erinn Strange MD (financial institution president). Dr. DILCIA Connor have personally reviewed and [...] isnormal. Report dictated by Erinn Strange MD (financial institution president). Dr. DILCIA Connor have personally reviewed and interpreted this examination/study. This report was electronically signed by DILCIA CONTRERAS on 10/06/2021 10:29 AM . Diamond Dunlap APRN-LOTTERY SALES CLERK DIAGNOSTIC IMAGI NG ORDERABLES * PTT [facility] (10/06/2021 1:59 AM CDT) APTT 32.8 23.0 - 38.4 Seconds 10/06/2021 3:47 AM CDT [facility] Comment:Suggested therapeuti c range for full dose I.V. unfractionated heparin therapy for venous thromboembolism is 71 to 109 seconds. Blood BLOOD SPECIMEN / Unknown Lab Venipuncture / Unknown 10/06/2021 1:59 AM CDT 10/06/2021 3:05 AM CDT Dar Kilpatrick MD LAB - COAGULATION ORDERABLES Performing Organization Address [facility] Co de Phone Number [address] [address], [facility] [phone] * (ABNORMAL) CALCIUM IONIZED WHOLE BLOOD (10/05/2021 11:17 PM CDT) Pathologist [facility] Calcium Ionized 1.12 mmol/L 10/05/2021 11:48 PM CDT [facility] pH 7.45 7.35 - 7.45 pH 10/05/2021 11:48 PM T [facility] Ionized Calcium pH Adjusted 1.14(L) 1.19 - 1.34 mmol/L 10/05/2021 11:48 PM CDT [facility] Blood BLOOD SPECIMEN / Unknown Lab Venipuncture / Unknown 10/05/2021 11:17 PM CDT 10/05/2021 11:42 PM CDT Dar Kilpatrick MD LAB - CHEMISTRY OR DERABLES Performing Organization Address [facility] Co de Phone Number [address] [address], [facility] [phone] * (ABNORMAL) CBC W/O DIFFERENTIAL (10/05/2021 11:17 PM CDT) WBC 12.1(H) 3.5 - 10.5 10? 3 /uL 10/05/2021 11:51 PM CDT [facility] RBC 2.89(L) 4.30 - 5.70 10? 6 /uL 10/05/2021 11:51 PM T [facility] Hemoglobin 8.6(L) 12.0 - 17.6 g/dL 10/05/2021 11:51 PM [facility] Hematocrit 25.6(L) 35.2 - 51.7 % 10/05/2021 11:51 PM [facility] MCV 88.6 80.7 - 98.3 fL 10/05/2021 11:51 PM [facility] MCH 29.8 26.7 - 34.0 pg 10/05/2021 11:51 PM [facility] MCHC 33.6 30.8 - 35.9 g/dL 10/05/2021 11:51 PM [facility] Platelet Count 263 150 - 400 10? 3 /uL 10/05/2021 11:51 PM [facility] RDW-SD 51.3(H) 36.0 - 50.0 fL 10/05/2021 11:51 PM [facility] RDW-CV 15.7(H) 11.2 - 14.8 % 10/05/2021 11:51 PM [facility] MPV 10.8 9.4 - 12.9 fL 10/05/2021 11:51 PM [facility] nRBC Absolute 0.00 0 10? 3 /uL 10/05/2021 11:51 PM [facility] nRBC Auto 0.0 0 /100 WBC 10/05/2021 11:51 PM [facility] Blood BLOOD SPECIMEN / Unknown Lab Venipuncture / Unknown 10/05/2021 11:17 PM CDT 10/05/2021 11:45 PM CDT Dar Kilpatrick MD LAB - HEMATOLOGY O RDERABLES [facility] [address] [place] [address], [facility] [phone] * PHOSPHORUS BLOOD (10/05/2021 11:17 PM CDT) Phosphorus 4.8 2.8 - 5.1 mg/dL 10/06/2021 12:11 AM T [facility] Blood BLOOD SPECIMEN / Unknown Lab Venipuncture / Unknown 10/05/2021 11:17 PM CDT 10/05/2021 11:45 PM CDT Dar Kilpatrick MD LAB - CHEMISTRY OR DERABLES [address] [address], [facility] [phone] * MAGNESIUM BLOOD (10/05/2021 11:17 PM CDT) Magnesium 2.0 1.6 - 2.6 mg/dL 10/06/2021 12:11 AM [facility] Blood BLOOD SPECIMEN / Unknown Lab Venipuncture / Unknown 10/05/2021 11:17 PM CDT 10/05/2021 11:45 PM CDT Dar Kilpatrick MD LAB - CHEMISTRY OR DERABLES Performing Organization Address [facility]/ZIP Co de Phone Number [address] [address], [facility] [phone] * (ABNORMAL) BASIC METABOLIC PANEL (CALCIUM TOTAL) (10/05/2021 11:17 PM CDT) BUN 25 7 - 26 mg/dL 10/06/2021 12:11 AM [facility] Creatinine 1.28(H) 0.71 - 1.16 mg/dL 10/06/2021 12:11 AM [facility] Sodium 139 136 - 145 mmol/L 10/06/2021 12:11 AM [facility] Potassium 4.4 3.5 - 4.5 mmol/L 10/06/2021 12:11 AM [facility] Chloride 100 98 - 107 mmol/L 10/06/2021 12:11 AM [facility] CO2 24 22 - 29 mmol/L 10/06/2021 12:11 AM [facility] Glucose 132(H) 70 - 115 mg/dL 10/06/2021 12:11 AM [facility] Calcium 8.5 8.4 - 10.2 mg/dL 10/06/2021 12:11 AM [facility] Anion Gap 19(H) 8 - 18 10/06/2021 12:11 AM CDT [facility] BUN/Creatinine Ratio 20 7 - 23 10/06/2021 12:11 AM CDT [facility] Osmolality Calculated 294 270 - 300 mOsm/kg 10/06/2021 12:11 AM CDT [facility] eGFR by CKD-EPI 73(L) >=90 mL/min/1.7 3 m2 10/06/2021 12:11 AM CDT [facility] Blood BLOOD SPECIMEN / Unknown Lab Venipuncture / Unknown 10/05/2021 11:17 PM CDT 10/05/2021 11:45 PM CDT Dar Kilpatrick MD LAB - CHEMISTRY OR DERABLES [facility] [address] [place] [address], [facility] [phone] * XR CHEST 1VW PORTABLE (10/05/2021 11:53 [...] upper quadrant. Dictated by Jamel Washington DO (financial institution president). I, Dr. MICAELA MCCULLOUGH have personally reviewed [...] upper quadrant. Dictated by Jamel Washington DO (financial institution president). I, Dr. MICAELA MCCULLOUGH have personally reviewed and interpreted this examination/study. This report was electronically signed by MICAELA MCCULLOUGH on 23:57 PM . Diamond Dumontraeann SUPERVISOR ELECTRONICS INSPECTION-LOTTERY SALES CLERK DIAGNOSTIC IMAGI NG ORDERABLES * EKG 12-LEAD (10/05/2021 10:48 AM CDT) Ventricular Rate 67 BPM [facility] Atrial Rate 67 BPM [facility] MUSE P-R Interval 146 ms H MUSE QRS Duration ms 86 ms H MUSE Q-T Interval ms 390 ms [facility] MUSE QTC Calculation (Bezet) 412 ms [facility] Calculated P [place] 63 degrees [facility] Calculated R [place] 42 degrees [facility] Calculated T [place] 2 degrees [facility] Interpretation EKG NORMAL SINUS RHYTHM NORMAL ECG NO PREVIOUS ECGS AVAILABLE Confirmed by MD Olamide, Iliana ([id number]) on 10/05/2021 2:28:56 PM [facility] MUSE 10/05/2021 10:4 8 AM CDT 10/05/2021 2:28 PM CDT Dar Kilpatrick MD ECG ORDERABLES [facility] MUSE * TYPE + SCREEN PANEL (10/05/2021 10:21 AM CDT) Antibody Screen NEG 11:22 AM CDT [facility] BLOOD BANK LAB ABO Rh O POS 10/05/2021 11:22 AM CDT [facility] BLOOD BANK LAB Blood Bank BLOOD SPECIMEN / Unknown Lab Venipuncture / Unknown 10/05/2021 10:21 AM CDT 10/05/2021 10:27 AM CDT Dar Kilpatrick MD LAB - BLOOD BANK O RDERABLES Performing Organization Address [facility] Co de Phone Number [facility] BLOOD BANK LAB [address]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 - 34.0 pg 10/01/2021 12:01 AM [facility] MCHC 34.1 30.8 - 35.9 g/dL 10/01/2021 12:01 AM [facility] Platelet Count 102(L) 150 - 400 10? 3 /uL 10/01/2021 12:01 AM [facility] RDW-SD 54.4(H) 36.0 - 50.0 fL 10/01/2021 12:01 AM [facility] RDW-CV 17.2(H) 11.2 - 14.8 % 10/01/2021 12:01 AM [facility] MPV 11.0 9.4 - 12.9 fL 10/01/2021 12:01 AM [facility] nRBC Absolute 0.02(H) 0 10? 3 /uL 10/01/2021 12:01 AM [facility] nRBC Auto 0.2(H) 0 /100 WBC 10/01/2021 12:01 AM [facility] Blood BLOOD SPECIMEN / Unknown Venipuncture / Unknown 09/30/2021 11:28 PM CDT 09/30/2021 11:44 PM CDT Dar Kilpatrick MD LAB - HEMATOLOGY O RDERABLES [facility] [address] [place] [address], [facility] [phone] * (ABNORMAL) CALCIUM IONIZED WHOLE BLOOD (09/30/2021 11:28 PM CDT) Calcium Ionized 1.11 mmol/L 09/30/2021 11:53 PM CDT [facility] pH 7.49(H) 7.35 - 7.45 pH 09/30/2021 11:53 PM T [facility] Ionized Calcium pH Adjusted 1.15(L) 1.19 - 1.34 mmol/L 09/30/2021 11:53 PM T [facility] Blood BLOOD SPECIMEN / Unknown Venipuncture / Unknown 09/30/2021 11:28 PM CDT 09/30/2021 11:40 PM CDT Dar Kilpatrick MD LAB - CHEMISTRY OR DERABLES Performing Organization Address City/State/[facility] Co de Phone Number [facility] [address] [place] [address], [facility] [phone] * (ABNORMAL) BASIC METABOLIC PANEL (CALCIUM TOTAL) (09/30/2021 6:50 PM CDT) [facility] BUN 13 7 - 26 mg/dL 09/30/2021 7:28 PM [facility] Creatinine 1.58(H) 0.71 - 1.16 mg/dL 09/30/2021 7:28 PM [facility] Sodium 139 136 - 145 mmol/L 09/30/2021 7:28 PM [facility] Potassium 3.7 3.5 - 4.5 mmol/L 09/30/2021 7:28 PM [facility] Chloride 97(L) 98 - 107 mmol/L 09/30/2021 7:28 PM [facility] CO2 30(H) 22 - 29 mmol/L 09/30/2021 7:28 PM [facility] Glucose 107 70 - 115 mg/dL 09/30/2021 7:28 PM [facility] Calcium 7.8(L) 8.4 - 10.2 mg/dL 09/30/2021 7:28 PM [facility] Anion Gap 16 8 - 18 09/30/2021 7:28 PM [facility] BUN/Creatinine Ratio 8 7 - 23 09/30/2021 7:28 PM [facility] Osmolality Calculated 289 270 - 300 mOsm/kg 09/30/2021 7:28 PM [facility] eGFR by CKD-EPI 57(L) >=90 mL/min/1.7 3 m2 09/30/2021 7:28 PM [facility] Blood BLOOD SPECIMEN / Unknown Venipuncture / Unknown 09/30/2021 6:50 PM CDT 09/30/2021 7:03 PM CDT Dar Kilpatrick MD LAB - CHEMISTRY OR DERABLES [facility] [address] [place] [address], [facility] [phone] * (ABNORMAL) BLOOD GASES ART + COOX PANEL (09/30/2021 6:50 PM CDT) pH Arterial 7.47(H) 7.35 - 7.45 pH 09/30/2021 7:09 PM [facility] pO2 Arterial 73(L) 80 - 100 mmHg 09/30/2021 7:09 PM [facility] pCO2 Arterial 48(H) 35 - 45 mmHg 7:09 PM [facility] HCO3 Arterial 35(H) 20 - 30 mmol/l 09/30/2021 7:09 PM [facility] BE Arterial 10.1(H) -2.0 - 2.0 mmol/L 09/30/2021 7:09 PM [facility] Oxyhemoglobin Arterial 94.4 % 09/30/2021 7:09 PM [facility] Dexoyhemoglobin (HHB) % 2.6 % 09/30/2021 7:09 PM [facility] Methemoglobin 0.9 0.0 - 2.0 % 09/30/2021 7:09 PM [facility] Carboxyhemoglobin 2.0 0.0 - 2.0 % 2021 7:09 PM [facility] O2 Content Arterial 11.0 Interpret within clinical context mg/dL 09/30/2021 7:09 PM CDT [facility] Hemoglobin by COOX 8.2(L) 12.0 - 17.6 g/dL 09/30/2021 7:09 PM CDT [facility] O2 Saturation Arterial 97 90 - 100 % 09/30/2021 7:09 PM CDT [facility] FI O2 Arterial 40.0 % 09/30/2021 7:09 PM CDT [facility] Blood, arterial ARTERIAL BLOOD SPECIMEN / Unknown Arterial Puncture / Unknown 09/30/2021 6:50 PM CDT 09/30/2021 7:02 PM CDT Narrative [facility] - 09/30/2021 7:09 PM CDT Carboxyhemoglobin Normal Concentration: Non-smokers: 0-2%; Smokers: 0-9%; Toxic: >20% Dar Kilpatrick MD LAB - BLOOD GASES ORDERABLES Performing Organization Address City/[facility]/ZIP Co de Phone Number [address] [address], [facility] [phone] * PHOSPHORUS BLOOD (09/30/2021 6:50 PM CDT) Phosphorus 2.9 2.8 - 5.1 mg/dL 09/30/2021 7:28 PM CDT [facility] Blood BLOOD SPECIMEN / Unknown Venipuncture / Unknown 09/30/2021 6:50 PM CDT 09/30/2021 7:03 PM CDT Dar Kilpatrick MD LAB - CHEMISTRY OR DERABLES [address] [address], [facility] [phone] * MAGNESIUM BLOOD (09/30/2021 6:50 PM CDT) Magnesium 2.1 1.6 - 2.6 mg/dL 09/30/2021 7:28 PM CDT [facility] Blood BLOOD SPECIMEN / Unknown Venipuncture / Unknown 09/30/2021 6:50 PM CDT 09/30/2021 7:03 PM CDT Dar Kilpatrick MD LAB - CHEMISTRY OR DERABLES [facility] [address] [place] [phone], [facility] [phone] * (ABNORMAL) CBC W/O DIFFERENTIAL (09/30/2021 6:50 PM CDT) WBC 7.5 3.5 - 10.5 10? 3 /uL 09/30/2021 7:40 PM CDT [facility] RBC 2.75(L) 4.30 - 5.70 10? 6 /uL 09/30/2021 7:40 PM T [facility] Hemoglobin 8.3(L) 12.0 - 17.6 g/dL 09/30/2021 7:40 PM [facility] Hematocrit 23.8(L) 35.2 - 51.7 % 09/30/2021 7:40 PM T [facility] MCV 86.5 80.7 - 98.3 fL 09/30/2021 7:40 PM CDT [facility] MCH 30.2 26.7 - 34.0 pg 09/30/2021 7:40 PM T [facility] MCHC 34.9 30.8 - 35.9 g/dL 09/30/2021 7:40 PM [facility] Platelet Count 86(L) 150 - 400 10? 3 /uL 09/30/2021 7:40 PM T [facility] RDW-SD 53.7(H) 36.0 - 50.0 fL 09/30/2021 7:40 PM [facility] RDW-CV 17.0(H) 11.2 - 14.8 % 09/30/2021 7:40 PM T [facility] MPV 10.4 9.4 - 12.9 fL 09/30/2021 7:40 PM T [facility] nRBC Absolute 0.00 0 10? 3 /uL 09/30/2021 7:40 PM T [facility] nRBC Auto 0.0 0 /100 WBC 09/30/2021 7:40 PM CDT [facility] Blood BLOOD SPECIMEN / Unknown Venipuncture / Unknown 09/30/2021 6:50 PM CDT 09/30/2021 7:03 PM CDT Dar Kilpatrick MD LAB - HEMATOLOGY O RDERABLES Performing Organization Address [facility] Co de Phone Number [address] [address], [facility] [phone] * (ABNORMAL) CALCIUM IONIZED WHOLE BLOOD (09/30/2021 6:50 PM CDT) Calcium Ionized 1.10 mmol/L 09/30/2021 7:04 PM CDT [facility] pH 7.48(H) 7.35 - 7.45 pH 09/30/2021 7:04 PM CDT [facility] Ionized Calcium pH Adjusted 1.14(L) 1.19 - 1.34 mmol/L 09/30/2021 7:04 PM CDT [facility] Blood BLOOD SPECIMEN / Unknown Venipuncture / Unknown 09/30/2021 6:50 PM CDT 09/30/2021 7:02 PM CDT Dar Kilpatrick MD LAB - CHEMISTRY OR DERABLES Performing Organization Address [facility] Co de Phone Number [address] [address], [facility] [phone] * CT ABDOMEN PELVIS W CONTRAST (09/30/2021 [...] PM CDT) Unit Description AS1 LR PRBC [facility] Unit ABO O [facility] Unit Rh POS [facility] Product Number R02 [facility] B LO[facility] B[facility] LAB Unit Donor # [id number] [facility] Unit Status transfused [facility] OD [facility] Product Code C1612I95 [facility] OD [facility] Blood Type Barcode 5100 [facility] Expiration Date S BLOOD BANK LAB Blood Bank BLOOD SPECIMEN / Unknown 09/27/2021 9:39 PM CDT Dar Kilpatrick MD LAB - BLOOD BANK O RDERABLES [facility] [address] [place] [address], [facility] [phone] * (ABNORMAL) BLOOD GASES ART + COOX PANEL (09/30/2021 11:48 AM CDT) pH Arterial 7.45 7.35 - 7.45 pH 09/30/2021 12:00 PM [facility] pO2 Arterial 86 80 - 100 mmHg 09/30/2021 12:00 PM [facility] pCO2 Arterial 53(H) 35 - 45 mmHg 12:00 PM [facility] HCO3 Arterial 37(H) 20 - 30 mmol/l 09/30/2021 12:00 PM [facility] BE Arterial 11.0(H) -2.0 - 2.0 mmol/L 09/30/2021 12:00 PM [facility] Oxyhemoglobin Arterial 94.9 % 09/30/2021 12:00 PM [facility] Dexoyhemoglobin (HHB) % 2.3 % 09/30/2021 12:00 PM [facility] Methemoglobin 0.9 0.0 - 2.0 % 09/30/2021 12:00 PM [facility] Carboxyhemoglobin 1.8 0.0 - 2.0 % 2021 12:00 PM [facility] O2 Content Arterial 16.0 Interpret within clinical context mg/dL 09/30/2021 12:00 PM CDT [facility] Hemoglobin by COOX 11.9(L) 12.0 - 17.6 g/dL 09/30/2021 12:00 PM T [facility] O2 Saturation Arterial 98 90 - 100 % 09/30/2021 12:00 PM T [facility] FI O2 Arterial 40.0 % 09/30/2021 12:00 PM T [facility] Blood, arterial ARTERIAL BLOOD SPECIMEN / Unknown Arterial Puncture / Unknown 09/30/2021 11:48 AM CDT 09/30/2021 11:52 AM CDT Narrative [facility] - 09/30/2021 12:00 PM CDT Carboxyhemoglobin Normal Concentration: Non-smokers: 0-2%; Smokers: 0-9%; Toxic: >20% Dar Kilpatrick MD LAB - BLOOD GASES ORDERABLES Performing Organization Address City/[facility]/ZIP Co de Phone Number [address] [address], [facility] [phone] * (ABNORMAL) CALCIUM IONIZED WHOLE BLOOD (09/30/2021 11:48 AM CDT) Calcium Ionized 1.09 mmol/L 09/30/2021 11:59 AM T [facility] pH 7.48(H) 7.35 - 7.45 pH 09/30/2021 11:59 AM [facility] Ionized Calcium pH Adjusted 1.13(L) 1.19 - 1.34 mmol/L 09/30/2021 11:59 AM T [facility] Blood BLOOD SPECIMEN / Unknown Venipuncture / Unknown 09/30/2021 11:48 AM CDT 09/30/2021 11:52 AM CDT Dar Kilpatrick MD LAB - CHEMISTRY OR DERABLES [address] [address], [facility] [phone] * (ABNORMAL) BASIC METABOLIC PANEL (CALCIUM TOTAL) (09/30/2021 11:48 AM CDT) Pathologist [facility] BUN 14 7 - 26 mg/dL 09/30/2021 12:24 PM [facility] Creatinine 1.55(H) 0.71 - 1.16 mg/dL 09/30/2021 12:24 PM [facility] Sodium 138 136 - 145 mmol/L 09/30/2021 12:24 PM [facility] Potassium 3.4(L) 3.5 - 4.5 mmol/L 09/30/2021 12:24 PM [facility] Chloride 97(L) 98 - 107 mmol/L 09/30/2021 12:24 PM [facility] CO2 34(H) 22 - 29 mmol/L 09/30/2021 12:24 PM [facility] Glucose 128(H) 70 - 115 mg/dL 09/30/2021 12:24 PM [facility] Calcium 8.1(L) 8.4 - 10.2 mg/dL 09/30/2021 12:24 PM [facility] Anion Gap 10 8 - 18 09/30/2021 12:24 PM [facility] BUN/Creatinine Ratio 9 7 - 23 09/30/2021 12:24 PM [facility] Osmolality Calculated 288 270 - 300 mOsm/kg 09/30/2021 12:24 PM [facility] eGFR by CKD-EPI 58(L) >=90 mL/min/1.7 3 m2 09/30/2021 12:24 PM [facility] Blood BLOOD SPECIMEN / Unknown Venipuncture / Unknown 09/30/2021 11:48 AM CDT 09/30/2021 11:53 AM CDT Dar Kilpatrick MD LAB - CHEMISTRY OR DERABLES [address] [address], [facility] [phone] * (ABNORMAL) CBC W AUTO DIFFERENTIAL (09/30/2021 11:48 AM CDT) [facility] WBC 7.9 3.5 - 10.5 10? 3 /uL 09/30/2021 12:17 PM [facility] RBC 2.28(L) 4.30 - 5.70 10? 6 /uL 09/30/2021 12:17 PM [facility] Hemoglobin 6.9(L) 12.0 - 17.6 g/dL 09/30/2021 12:17 PM [facility] Hematocrit 20.5(L) 35.2 - 51.7 % 09/30/2021 12:17 PM [facility] MCV 89.9 80.7 - 98.3 fL 09/30/2021 12:17 PM [facility] MCH 30.3 26.7 - 34.0 pg 09/30/2021 12:17 PM [facility] MCHC 33.7 30.8 - 35.9 g/dL 09/30/2021 12:17 PM [facility] Platelet Count 104(L) 150 - 400 10? 3 /uL 09/30/2021 12:17 PM [facility] RDW-SD 47.8 36.0 - 50.0 fL 09/30/2021 12:17 PM [facility] RDW-CV 14.6 11.2 - 14.8 % 09/30/2021 12:17 PM [facility] MPV 10.8 9.4 - 12.9 fL 09/30/2021 12:17 PM [facility] nRBC Absolute 0.02(H) 0 10? 3 /uL 09/30/2021 12:17 PM [facility] nRBC Auto 0.3(H) 0 /100 WBC 09/30/2021 12:17 PM [facility] Neutrophils % 83.4(H) 35.0 - 70.0 % 09/30/2021 12:17 PM [facility] Lymphocytes % 8.8(L) 20.0 - 43.0 % 09/30/2021 12:17 PM [facility] Monocytes % 6.5 5.0 - 13.0 % 09/30/2021 12:17 PM [facility] Eosinophils % 0.6 0.0 - 6.0 % 09/30/2021 12:17 PM [facility] Basophil % 0.1 0.0 - 2.0 % 09/30/2021 12:17 PM [facility] Neutrophils Absolute 6.54 1.60 - 7.00 10? 3 /uL 09/30/2021 12:17 PM [facility] Lymphocyte Absolute 0.69(L) 1.10 - 3.90 10? 3 /uL 09/30/2021 12:17 PM [facility] Monocytes Absolute 0.51 0.26 - 1.07 10? 3 /uL 09/30/2021 12:17 PM [facility] Eosinophils Absolute 0.05 0.00 - 0.47 10? 3 /uL 09/30/2021 12:17 PM [facility] Basophils Absolute 0.01 0.00 - 0.08 10? 3 /uL 09/30/2021 12:17 PM [facility] Immature Granulocytes % 0.6 0.0 - 1.0 % 09/30/2021 12:17 PM [facility] Immature Granulocytes Absolute 0.05 09/30/2021 12:17 PM [facility] Immature Platelet Fraction 4.1 1.1 - 6.2 % 09/30/2021 12:17 PM [facility] Blood BLOOD SPECIMEN / Unknown Venipuncture / Unknown 09/30/2021 11:48 AM CDT 09/30/2021 11:53 AM CDT Darrell Gomez MD LAB - HEMATOLOGY ORD ERABLES Performing Organization Address City/State/[facility] Co de Phone Number [address] [address], [facility] [phone] * (ABNORMAL) GLUCOSE - POINT OF CARE (09/30/2021 11:45 AM CDT) Glucose WB/POC 147(H) 70 - 115 mg/dL 09/30/2021 11:50 AM CDT [facility] Specimen Type Arterial 09/30/2021 11:50 AM [facility] Blood BLOOD SPECIMEN / Unknown 09/30/2021 11:45 AM CDT 09/30/2021 11:50 AM CDT Dar Kilpatrick MD LAB - POINT OF CAR E ORDERABLES Performing Organization Address City/[facility]/ZIP Co de Phone Number [facility] [address] [place] [address], [facility] [phone] * TRANSFUSE RED BLOOD CELL LEUKOREDUCED UNIT(S) (09/30/2021 11:16 AM CDT) Dar Kilpatrick MD NURSING - BLOOD CA OD TRANSFUSION * TRANSFUSE RED BLOOD CELL LEUKOREDUCED UNIT(S), 1 Units (09/30/2021 11:16 AM CDT) Dar Kilpatrick MD NURSING - BLOOD CA OD TRANSFUSION * (ABNORMAL) GLUCOSE - POINT OF CARE (09/30/2021 8:10 AM CDT) Glucose WB/POC 136(H) 70 - 115 mg/dL 09/30/2021 8:15 AM CDT [facility] Specimen Type Arterial 09/30/2021 8:15 AM CDT [facility] Blood BLOOD SPECIMEN / Unknown 09/30/2021 8:10 AM CDT 09/30/2021 8:15 AM CDT Dar Kilpatrick MD LAB - POINT OF CAR E ORDERABLES Performing Organization Address City/[facility]/ZIP Co de Phone Number [address] [address], [facility] [phone] * PREPARE (CROSSMATCH) RBC UNIT(S), 1 Units (09/30/2021 7:22 AM CDT) Unit Description AS1 LR PRBC [facility] Unit ABO O [facility] Unit Rh POS [facility] Product Number R02 [facility] B LOOD BANK LAB Unit Donor # [id number] [facility] Unit Status transfused [facility] Product Code E0478E54 [facility] B[facility] OD [facility] LAB Blood Type Barcode 5100 [facility] Expiration Date S BLOOD BANK LAB Blood Bank BLOOD SPECIMEN / Unknown 09/27/2021 9:39 PM CDT Dar Kilpatrick MD LAB - BLOOD BANK O RDERABLES [facility] [address] [place] [address], [facility] [phone] * (ABNORMAL) BLOOD GASES ART + COOX PANEL (09/30/2021 5:47 AM CDT) pH Arterial 7.54(H) 7.35 - 7.45 pH 09/30/2021 6:19 AM [facility] pO2 Arterial 70(L) 80 - 100 mmHg 09/30/2021 6:19 AM [facility] pCO2 Arterial 42 35 - 45 mmHg 6:19 AM [facility] HCO3 Arterial 36(H) 20 - 30 mmol/l 09/30/2021 6:19 AM [facility] BE Arterial 12.3(H) -2.0 - 2.0 mmol/L 09/30/2021 6:19 AM [facility] Oxyhemoglobin Arterial 94.5 % 09/30/2021 6:19 AM [facility] Dexoyhemoglobin (HHB) % 1.8 % 09/30/2021 6:19 AM [facility] Methemoglobin 1.7 0.0 - 2.0 % 09/30/2021 6:19 AM [facility] Carboxyhemoglobin 2.0 0.0 - 2.0 % 2021 6:19 AM [facility] O2 Content Arterial 8.9 Interpret within clinical context mg/dL 09/30/2021 6:19 AM [facility] Hemoglobin by COOX 6.6(L) 12.0 - 17.6 g/dL 09/30/2021 6:19 AM [facility] O2 Saturation Arterial 98 90 - 100 % 09/30/2021 6:19 AM [facility] FI O2 Arterial 40.0 % 09/30/2021 6:19 AM CDT [facility] Blood, arterial ARTERIAL BLOOD SPECIMEN / Unknown Arterial Puncture / Unknown 09/30/2021 5:47 AM CDT 09/30/2021 5:51 AM CDT Narrative [facility] - 09/30/2021 6:19 AM CDT Carboxyhemoglobin Normal Concentration: Non-smokers: 0-2%; Smokers: 0-9%; Toxic: >20% Dar Kilpatrick MD LAB - BLOOD GASES ORDERABLES Performing Organization Address [facility] de Phone Number [address] [address], [facility] [phone] * (ABNORMAL) CALCIUM IONIZED WHOLE BLOOD (09/30/2021 5:47 AM CDT) Pathologist [facility] Calcium Ionized 1.21 mmol/L 09/30/2021 5:58 AM CDT [facility] pH 7.57(H) 7.35 - 7.45 pH 09/30/2021 5:58 AM T [facility] Ionized Calcium pH Adjusted 1.30 1.19 - 1.34 mmol/L 09/30/2021 5:58 AM T [facility] Blood BLOOD SPECIMEN / Unknown Venipuncture / Unknown 09/30/2021 5:47 AM CDT 09/30/2021 5:51 AM CDT Dar Kilpatrick MD LAB - CHEMISTRY OR DERABLES Performing Organization Address [facility] de Phone Number [address] [address], [facility] [phone] * (ABNORMAL) BASIC METABOLIC PANEL (CALCIUM TOTAL) (09/30/2021 5:47 AM CDT) BUN 16 7 - 26 mg/dL 09/30/2021 6:22 AM T [facility] Creatinine 1.63(H) 0.71 - 1.16 mg/dL 09/30/2021 6:22 AM T [facility] Sodium 138 136 - 145 mmol/L 09/30/2021 6:22 AM T [facility] Potassium 3.4(L) 3.5 - 4.5 mmol/L 09/30/2021 6:22 AM [facility] Chloride 97(L) 98 - 107 mmol/L 09/30/2021 6:22 AM [facility] CO2 35(H) 22 - 29 mmol/L 09/30/2021 6:22 AM [facility] Glucose 130(H) 70 - 115 mg/dL 09/30/2021 6:22 AM [facility] Calcium 8.5 8.4 - 10.2 mg/dL 09/30/2021 6:22 AM [facility] Anion Gap 9 8 - 18 09/30/2021 6:22 AM [facility] BUN/Creatinine Ratio 10 7 - 23 09/30/2021 6:22 AM [facility] Osmolality Calculated 289 270 - 300 mOsm/kg 09/30/2021 6:22 AM [facility] eGFR by CKD-EPI 55(L) >=90 mL/min/1.7 3 m2 09/30/2021 6:22 AM [facility] Blood BLOOD SPECIMEN / Unknown Venipuncture / Unknown 09/30/2021 5:47 AM CDT 09/30/2021 5:57 AM CDT Dar Kilpatrick MD LAB - CHEMISTRY OR DERABLES Performing Organization Address City/State/[facility] Co de Phone Number [facility] [address] [place] [address], [facility] [phone] * (ABNORMAL) CBC W AUTO DIFFERENTIAL (09/30/2021 5:47 AM CDT) WBC 7.0 3.5 - 10.5 10? 3 /uL 09/30/2021 6:05 AM [facility] RBC 2.01(L) 4.30 - 5.70 10? 6 /uL 09/30/2021 6:05 AM [facility] Hemoglobin 6.3(L) 12.0 - 17.6 g/dL 09/30/2021 6:05 AM [facility] Hematocrit 18.4(L) 35.2 - 51.7 % 09/30/2021 6:05 AM [facility] MCV 91.5 80.7 - 98.3 fL 09/30/2021 6:05 AM [facility] MCH 31.3 26.7 - 34.0 pg 09/30/2021 6:05 AM [facility] MCHC 34.2 30.8 - 35.9 g/dL 09/30/2021 6:05 AM [facility] Platelet Count 108(L) 150 - 400 10? 3 /uL 09/30/2021 6:05 AM [facility] RDW-SD 45.9 36.0 - 50.0 fL 09/30/2021 6:05 AM [facility] RDW-CV 13.6 11.2 - 14.8 % 09/30/2021 6:05 AM [facility] MPV 10.8 9.4 - 12.9 fL 09/30/2021 6:05 AM [facility] nRBC Absolute 0.00 0 10? 3 /uL 09/30/2021 6:05 AM [facility] nRBC Auto 0.0 0 /100 WBC 09/30/2021 6:05 AM [facility] Neutrophils % 83.0(H) 35.0 - 70.0 % 09/30/2021 6:05 AM [facility] Lymphocytes % 9.1(L) 20.0 - 43.0 % 09/30/2021 6:05 AM [facility] Monocytes % 7.0 5.0 - 13.0 % 09/30/2021 6:05 AM [facility] Eosinophils % 0.4 0.0 - 6.0 % 09/30/2021 6:05 AM [facility] Basophil % 0.1 0.0 - 2.0 % 09/30/2021 6:05 AM [facility] Neutrophils Absolute 5.84 1.60 - 7.00 10? 3 /uL 09/30/2021 6:05 AM [facility] Lymphocyte Absolute 0.64(L) 1.10 - 3.90 10? 3 /uL 09/30/2021 6:05 AM [facility] Monocytes Absolute 0.49 0.26 - 1.07 10? 3 /uL 09/30/2021 6:05 AM CDT [facility] Eosinophils Absolute 0.03 0.00 - 0.47 10? 3 /uL 09/30/2021 6:05 AM CDT [facility] Basophils Absolute 0.01 0.00 - 0.08 10? 3 /uL 09/30/2021 6:05 AM CDT [facility] Immature Granulocytes % 0.4 0.0 - 1.0 % 09/30/2021 6:05 AM CDT [facility] Immature Granulocytes Absolute 0.03 09/30/2021 6:05 AM CDT [facility] Immature Platelet Fraction 4.7 1.1 - 6.2 % 09/30/2021 6:05 AM CDT [facility] Blood BLOOD SPECIMEN / Unknown Venipuncture / Unknown 09/30/2021 5:47 AM CDT 09/30/2021 5:57 AM CDT Darrell Gomez MD LAB - HEMATOLOGY ORD ERABLES [facility] [address] [place] [address], [facility] [phone] * XR CHEST 1VW PORTABLE (09/30/2021 4:26 [...] hemithorax. Report dictated by Marek Santos MD (financial institution president). I, Dr. AIDEN MCKEON have personally reviewed [...] hemithorax. Report dictated by Marek Santos MD (financial institution president). I, Dr. AIDEN MCKEON have personally reviewed and interpreted this examination/study. This report was electronically signed by AIDEN MCKEON on 09/30/2021 4:07 PM . Dar Kilpatrick MD DIAGNOSTIC IMAGING ORDERABLES * (ABNORMAL) GLUCOSE - POINT OF CARE (09/30/2021 3:49 AM CDT) Glucose WB/POC 141(H) 70 - 115 mg/dL 09/30/2021 3:50 AM CDT [facility] Specimen Type Cap Fingerstick 2021 3:50 AM CDT [facility] Blood BLOOD SPECIMEN / Unknown 09/30/2021 3:49 AM CDT 09/30/2021 3:50 AM CDT Dar Kilpatrick MD LAB - POINT OF CAR E ORDERABLES [facility] [address] [place] [address] [phone] * (ABNORMAL) BLOOD GASES ART + COOX PANEL (09/30/2021 12:16 AM [facility]) pH Arterial 7.50(H) 7.35 - 7.45 pH 09/30/2021 12:33 AM [facility] pO2 Arterial 90 80 - 100 mmHg 09/30/2021 12:33 AM [facility] pCO2 Arterial 48(H) 35 - 45 mmHg 12:33 AM [facility] HCO3 Arterial 37(H) 20 - 30 mmol/l 09/30/2021 12:33 AM [facility] BE Arterial 12.9(H) -2.0 - 2.0 mmol/L 09/30/2021 12:33 AM [facility] Oxyhemoglobin Arterial 96.0 % 09/30/2021 12:33 AM [facility] Dexoyhemoglobin (HHB) % 1.8 % 09/30/2021 12:33 AM [facility] Methemoglobin <0.8 0.0 - 2.0 % 09/30/2021 12:33 AM [facility] Carboxyhemoglobin 1.4 0.0 - 2.0 % 2021 12:33 AM [facility] O2 Content Arterial 10.2 Interpret within clinical context mg/dL 09/30/2021 12:33 AM [facility] Hemoglobin by COOX 7.4(L) 12.0 - 17.6 g/dL 09/30/2021 12:33 AM [facility] O2 Saturation Arterial 98 90 - 100 % 09/30/2021 12:33 AM [facility] FI O2 Arterial 40.0 % 09/30/2021 12:33 AM [facility] Blood, arterial ARTERIAL BLOOD SPECIMEN / Unknown Arterial Puncture / Unknown 09/30/2021 12:16 AM CDT 09/30/2021 12:19 AM [facility] - 09/30/2021 12:33 AM [facility] Carboxyhemoglobin Normal Concentration: Non-smokers: 0-2%; Smokers: 0-9%; Toxic: >20% Dar Kilpatrick MD LAB - BLOOD GASES ORDERABLES Performing Organization Address [facility]/ZIP Co de Phone Number [address] [address], [facility] [phone] * (ABNORMAL) CALCIUM IONIZED WHOLE BLOOD (09/30/2021 12:16 AM CDT) Calcium Ionized 1.11 mmol/L 09/30/2021 12:24 AM T [facility] pH 7.49(H) 7.35 - 7.45 pH 09/30/2021 12:24 AM [facility] Ionized Calcium pH Adjusted 1.15(L) 1.19 - 1.34 mmol/L 09/30/2021 12:24 AM [facility] Blood BLOOD SPECIMEN / Unknown Venipuncture / Unknown 09/30/2021 12:16 AM CDT 09/30/2021 12:19 AM CDT Dar Kilpatrick MD LAB - CHEMISTRY OR DERABLES Performing Organization Address [facility] Co de Phone Number [address] [address], [facility] [phone] * (ABNORMAL) BASIC METABOLIC PANEL (CALCIUM TOTAL) (09/30/2021 12:16 AM CDT) BUN 16 7 - 26 mg/dL 09/30/2021 12:46 AM [facility] Creatinine 1.72(H) 0.71 - 1.16 mg/dL 09/30/2021 12:46 AM [facility] Sodium 139 136 - 145 mmol/L 09/30/2021 12:46 AM [facility] Potassium 3.5 3.5 - 4.5 mmol/L 09/30/2021 12:46 AM [facility] Chloride 99 98 - 107 mmol/L 09/30/2021 12:46 AM [facility] CO2 33(H) 22 - 29 mmol/L 09/30/2021 12:46 AM [facility] Glucose 130(H) 70 - 115 mg/dL 09/30/2021 12:46 AM [facility] Calcium 7.9(L) 8.4 - 10.2 mg/dL 09/30/2021 12:46 AM [facility] Anion Gap 11 8 - 18 09/30/2021 12:46 AM [facility] BUN/Creatinine Ratio 9 7 - 23 09/30/2021 12:46 AM [facility] Osmolality Calculated 291 270 - 300 mOsm/kg 09/30/2021 12:46 AM [facility] eGFR by CKD-EPI 52(L) >=90 mL/min/1.7 3 m2 09/30/2021 12:46 AM [facility] Blood BLOOD SPECIMEN / Unknown Venipuncture / Unknown 09/30/2021 12:16 AM CDT 09/30/2021 12:20 AM T Dar Kilpatrick MD LAB - CHEMISTRY OR DERABLES Performing Organization Address [facility]/State/ZIP Co de Phone Number [facility] [address] [place] [address], [facility] [phone] * (ABNORMAL) CBC W AUTO DIFFERENTIAL (09/30/2021 12:16 AM [facility]) WBC 7.7 3.5 - 10.5 10? 3 /uL 09/30/2021 12:26 AM [facility] RBC 2.08(L) 4.30 - 5.70 10? 6 /uL 09/30/2021 12:26 AM [facility] Hemoglobin 6.5(L) 12.0 - 17.6 g/dL 09/30/2021 12:26 AM [facility] Hematocrit 19.0(L) 35.2 - 51.7 % 09/30/2021 12:26 AM [facility] MCV 91.3 80.7 - 98.3 fL 09/30/2021 12:26 AM [facility] MCH 31.3 26.7 - 34.0 pg 09/30/2021 12:26 AM [facility] MCHC 34.2 30.8 - 35.9 g/dL 09/30/2021 12:26 AM [facility] Platelet Count 102(L) 150 - 400 10? 3 /uL 09/30/2021 12:26 AM [facility] RDW-SD 46.5 36.0 - 50.0 fL 09/30/2021 12:26 AM [facility] RDW-CV 13.7 11.2 - 14.8 % 09/30/2021 12:26 AM [facility] MPV 10.8 9.4 - 12.9 fL 09/30/2021 12:26 AM [facility] nRBC Absolute 0.00 0 10? 3 /uL 09/30/2021 12:26 AM [facility] nRBC Auto 0.0 0 /100 WBC 09/30/2021 12:26 AM [facility] Neutrophils % 84.0(H) 35.0 - 70.0 % 09/30/2021 12:26 AM [facility] Lymphocytes % 7.7(L) 20.0 - 43.0 % 09/30/2021 12:26 AM [facility] Monocytes % 7.0 5.0 - 13.0 % 09/30/2021 12:26 AM [facility] Eosinophils % 0.4 0.0 - 6.0 % 09/30/2021 12:26 AM [facility] Basophil % 0.1 0.0 - 2.0 % 09/30/2021 12:26 AM [facility] Neutrophils Absolute 6.44 1.60 - 7.00 10? 3 /uL 09/30/2021 12:26 AM [facility] Lymphocyte Absolute 0.59(L) 1.10 - 3.90 10? 3 /uL 09/30/2021 12:26 AM [facility] Monocytes Absolute 0.54 0.26 - 1.07 10? 3 /uL 09/30/2021 12:26 AM [facility] Eosinophils Absolute 0.03 0.00 - 0.47 10? 3 /uL 09/30/2021 12:26 AM [facility] Basophils Absolute 0.01 0.00 - 0.08 10? 3 /uL 09/30/2021 12:26 AM CDT [facility] Immature Granulocytes % 0.8 0.0 - 1.0 % 09/30/2021 12:26 AM CDT [facility] Immature Granulocytes Absolute 0.06 09/30/2021 12:26 AM CDT [facility] Immature Platelet Fraction 4.8 1.1 - 6.2 % 09/30/2021 12:26 AM CDT [facility] Blood BLOOD SPECIMEN / Unknown Venipuncture / Unknown 09/30/2021 12:16 AM CDT 09/30/2021 12:20 AM CDT Darrell Gomez MD LAB - HEMATOLOGY ORD ERABLES Performing Organization Address City/[facility]/ZIP Co de Phone Number [address] [address], [facility] [phone] * (ABNORMAL) PHOSPHORUS BLOOD (09/30/2021 12:16 AM CDT) Phosphorus 2.4(L) 2.8 - 5.1 mg/dL 09/30/2021 12:46 AM CDT [facility] Blood BLOOD SPECIMEN / Unknown Venipuncture / Unknown 09/30/2021 12:16 AM CDT 09/30/2021 12:20 AM CDT Dar Kilpatrick MD LAB - CHEMISTRY OR DERABLES [address] [address], [place] [phone] * MAGNESIUM BLOOD (09/30/2021 12:16 AM CDT) Magnesium 1.9 1.6 - 2.6 mg/dL 09/30/2021 12:46 AM CDT [facility] Blood BLOOD SPECIMEN / Unknown Venipuncture / Unknown 09/30/2021 12:16 AM CDT 09/30/2021 12:20 AM CDT Dar Kilpatrick MD LAB - CHEMISTRY OR DERABLES [facility] [address] [place] [address], [place] [phone] * (ABNORMAL) GLUCOSE - POINT OF CARE (09/30/2021 12:12 AM CDT) Glucose WB/POC 136(H) 70 - 115 mg/dL 09/30/2021 12:15 AM CDT [facility] Specimen Type Arterial 09/30/2021 12:15 AM CDT [facility] Blood BLOOD SPECIMEN / Unknown 09/30/2021 12:12 AM CDT 09/30/2021 12:15 AM CDT Dar Kilpatrick MD LAB - POINT OF CAR E ORDERABLES [facility] [address] [place] [address], [place] [phone] * (ABNORMAL) GLUCOSE - POINT OF CARE (09/29/2021 8:18 PM CDT) Glucose WB/POC 122(H) 70 - 115 mg/dL 09/29/2021 8:19 PM CDT [facility] Specimen Type Cap Fingerstick 2021 8:19 PM CDT [facility] Blood BLOOD SPECIMEN / Unknown 09/29/2021 8:18 PM CDT 09/29/2021 8:19 PM CDT Dar Kilpatrick MD LAB - POINT OF CAR E ORDERABLES [facility] [address] [place] [address], [place] [phone] * (ABNORMAL) BLOOD GASES ART + COOX PANEL (09/29/2021 6:36 PM CDT) pH Arterial 7.48(H) 7.35 - 7.45 pH 09/29/2021 6:43 PM CDT [facility] pO2 Arterial 105(H) 80 - 100 mmHg 09/29/2021 6:43 PM [facility] pCO2 Arterial 45 35 - 45 mmHg 6:43 PM [facility] HCO3 Arterial 34(H) 20 - 30 mmol/l 09/29/2021 6:43 PM [facility] BE Arterial 9.1(H) -2.0 - 2.0 mmol/L 09/29/2021 6:43 PM [facility] Oxyhemoglobin Arterial 97.2 % 09/29/2021 6:43 PM [facility] Dexoyhemoglobin (HHB) % 0.6 % 09/29/2021 6:43 PM [facility] Methemoglobin <0.8 0.0 - 2.0 % 09/29/2021 6:43 PM [facility] Carboxyhemoglobin 1.4 0.0 - 2.0 % 2021 6:43 PM [facility] O2 Content Arterial 10.3 Interpret within clinical context mg/dL 09/29/2021 6:43 PM [facility] Hemoglobin by COOX 7.4(L) 12.0 - 17.6 g/dL 09/29/2021 6:43 PM [facility] O2 Saturation Arterial 99 90 - 100 % 09/29/2021 6:43 PM [facility] FI O2 Arterial 40.0 % 09/29/2021 6:43 PM [facility] Blood, arterial ARTERIAL BLOOD SPECIMEN / Unknown Arterial Puncture / Unknown 09/29/2021 6:36 PM CDT 09/29/2021 6:41 PM [facility] - 09/29/2021 6:43 PM T Carboxyhemoglobin Normal Concentration: Non-smokers: 0-2%; Smokers: 0-9%; Toxic: >20% Dar Kilpatrick MD LAB - BLOOD GASES ORDERABLES [facility] [address] [place] [address], [facility] [phone] * (ABNORMAL) CALCIUM IONIZED WHOLE BLOOD (09/29/2021 6:36 PM CDT) Calcium Ionized 1.08 mmol/L 09/29/2021 6:43 PM CDT [facility] pH 7.48(H) 7.35 - 7.45 pH 09/29/2021 6:43 PM T [facility] Ionized Calcium pH Adjusted 1.12(L) 1.19 - 1.34 mmol/L 09/29/2021 6:43 PM T [facility] Blood BLOOD SPECIMEN / Unknown Venipuncture / Unknown 09/29/2021 6:36 PM CDT 09/29/2021 6:40 PM CDT Dar Kilpatrick MD LAB - CHEMISTRY OR DERABLES Performing Organization Address City/State/[facility] Co de Phone Number [facility] [address] [place] [address], [facility] [phone] * (ABNORMAL) BASIC METABOLIC PANEL (CALCIUM TOTAL) (09/29/2021 6:36 PM CDT) [facility] BUN 18 7 - 26 mg/dL 09/29/2021 7:06 PM [facility] Creatinine 1.80(H) 0.71 - 1.16 mg/dL 09/29/2021 7:06 PM [facility] Sodium 141 136 - 145 mmol/L 09/29/2021 7:06 PM [facility] Potassium 3.5 3.5 - 4.5 mmol/L 09/29/2021 7:06 PM [facility] Chloride 102 98 - 107 mmol/L 09/29/2021 7:06 PM [facility] CO2 32(H) 22 - 29 mmol/L 09/29/2021 7:06 PM [facility] Glucose 134(H) 70 - 115 mg/dL 09/29/2021 7:06 PM [facility] Calcium 8.0(L) 8.4 - 10.2 mg/dL 09/29/2021 7:06 PM [facility] Anion Gap 11 8 - 18 09/29/2021 7:06 PM [facility] BUN/Creatinine Ratio 10 7 - 23 09/29/2021 7:06 PM [facility] Osmolality Calculated 296 270 - 300 mOsm/kg 09/29/2021 7:06 PM [facility] eGFR by CKD-EPI 49(L) >=90 mL/min/1.7 3 m2 09/29/2021 7:06 PM [facility] Blood BLOOD SPECIMEN / Unknown Venipuncture / Unknown 09/29/2021 6:36 PM CDT 09/29/2021 6:40 PM CDT Dar Kilpatrick MD LAB - CHEMISTRY OR DERABLES [facility] [address] [place] [address], [facility] [phone] * (ABNORMAL) CBC W AUTO DIFFERENTIAL (09/29/2021 6:36 PM CDT) WBC 9.3 3.5 - 10.5 10? 3 /uL 09/29/2021 6:46 PM [facility] RBC 2.26(L) 4.30 - 5.70 10? 6 /uL 09/29/2021 6:46 PM [facility] Hemoglobin 7.1(L) 12.0 - 17.6 g/dL 09/29/2021 6:46 PM [facility] Hematocrit 20.4(L) 35.2 - 51.7 % 09/29/2021 6:46 PM [facility] MCV 90.3 80.7 - 98.3 fL 09/29/2021 6:46 PM [facility] MCH 31.4 26.7 - 34.0 pg 09/29/2021 6:46 PM [facility] MCHC 34.8 30.8 - 35.9 g/dL 09/29/2021 6:46 PM [facility] Platelet Count 110(L) 150 - 400 10? 3 /uL 09/29/2021 6:46 PM [facility] RDW-SD 45.9 36.0 - 50.0 fL 09/29/2021 6:46 PM [facility] RDW-CV 13.9 11.2 - 14.8 % 09/29/2021 6:46 PM [facility] MPV 10.6 9.4 - 12.9 fL 09/29/2021 6:46 PM [facility] nRBC Absolute 0.00 0 10? 3 /uL 09/29/2021 6:46 PM [facility] nRBC Auto 0.0 0 /100 WBC 09/29/2021 6:46 PM [facility] Neutrophils % 82.9(H) 35.0 - 70.0 % 09/29/2021 6:46 PM [facility] Lymphocytes % 8.3(L) 20.0 - 43.0 % 09/29/2021 6:46 PM [facility] Monocytes % 7.9 5.0 - 13.0 % 09/29/2021 6:46 PM [facility] Eosinophils % 0.3 0.0 - 6.0 % 09/29/2021 6:46 PM [facility] Basophil % 0.1 0.0 - 2.0 % 09/29/2021 6:46 PM [facility] Neutrophils Absolute 7.70(H) 1.60 - 7.00 10? 3 /uL 09/29/2021 6:46 PM [facility] Lymphocyte Absolute 0.77(L) 1.10 - 3.90 10? 3 /uL 09/29/2021 6:46 PM [facility] Monocytes Absolute 0.73 0.26 - 1.07 10? 3 /uL 09/29/2021 6:46 PM [facility] Eosinophils Absolute 0.03 0.00 - 0.47 10? 3 /uL 09/29/2021 6:46 PM [facility] Basophils Absolute 0.01 0.00 - 0.08 10? 3 /uL 09/29/2021 6:46 PM [facility] Immature Granulocytes % 0.5 0.0 - 1.0 % 09/29/2021 6:46 PM [facility] Immature Granulocytes Absolute 0.05 09/29/2021 6:46 PM [facility] Immature Platelet Fraction 4.8 1.1 - 6.2 % 09/29/2021 6:46 PM CDT [facility] Blood BLOOD SPECIMEN / Unknown Venipuncture / Unknown 09/29/2021 6:36 PM CDT 09/29/2021 6:41 PM CDT Darrell Gomez MD LAB - HEMATOLOGY ORD ERABLES Performing Organization Address City/[facility]/ZIP Co de Phone Number [address] [address], [facility] [phone] * (ABNORMAL) GLUCOSE - POINT OF CARE (09/29/2021 4:12 PM CDT) Glucose WB/POC 138(H) 70 - 115 mg/dL 09/29/2021 4:17 PM CDT [facility] Specimen Type Cap Fingerstick 2021 4:17 PM CDT [facility] Blood BLOOD SPECIMEN / Unknown 09/29/2021 4:12 PM CDT 09/29/2021 4:17 PM CDT Dar Kilpatrick MD LAB - POINT OF CAR E ORDERABLES Performing Organization Address City/[facility]/ZIP Co de Phone Number [address] [address], [facility] [phone] * CT CHEST WO CONTRAST (09/29/2021 2:30 [...] ART + COOX PANEL (09/29/2021 12:36 PM CDT) pH Arterial 7.49(H) 7.35 - 7.45 pH 09/29/2021 12:43 PM [facility] pO2 Arterial 151(H) 80 - 100 mmHg 09/29/2021 12:43 PM [facility] pCO2 Arterial 40 35 - 45 mmHg 12:43 PM [facility] HCO3 Arterial 31(H) 20 - 30 mmol/l 09/29/2021 12:43 PM [facility] BE Arterial 6.6(H) -2.0 - 2.0 mmol/L 09/29/2021 12:43 PM [facility] Oxyhemoglobin Arterial 98.6 % 09/29/2021 12:43 PM [facility] Dexoyhemoglobin (HHB) % 0.5 % 09/29/2021 12:43 PM [facility] Methemoglobin <0.8 0.0 - 2.0 % 09/29/2021 12:43 PM [facility] Carboxyhemoglobin 0.9 0.0 - 2.0 % 2021 12:43 PM [facility] O2 Content Arterial 10.3 Interpret within clinical context mg/dL 09/29/2021 12:43 PM [facility] Hemoglobin by COOX 7.2(L) 12.0 - 17.6 g/dL 09/29/2021 12:43 PM [facility] O2 Saturation Arterial 100 90 - 100 % 09/29/2021 12:43 PM [facility] FI O2 Arterial 40.0 % 09/29/2021 12:43 PM [facility] Blood, arterial ARTERIAL BLOOD SPECIMEN / Unknown Arterial Puncture / Unknown 09/29/2021 12:36 PM T 09/29/2021 12:39 PM [facility] - 09/29/2021 12:43 PM [facility] Carboxyhemoglobin Normal Concentration: Non-smokers: 0-2%; Smokers: 0-9%; Toxic: >20% Dar Kilpatrick MD LAB - BLOOD GASES ORDERABLES [address] [address], [facility] [phone] * (ABNORMAL) CALCIUM IONIZED WHOLE BLOOD (09/29/2021 12:36 PM CDT) [facility] Calcium Ionized 1.13 mmol/L 09/29/2021 12:43 PM CDT [facility] pH 7.48(H) 7.35 - 7.45 pH 09/29/2021 12:43 PM [facility] Ionized Calcium pH Adjusted 1.17(L) 1.19 - 1.34 mmol/L 09/29/2021 12:43 PM [facility] Blood BLOOD SPECIMEN / Unknown Venipuncture / Unknown 09/29/2021 12:36 PM CDT 09/29/2021 12:39 PM CDT Dar Kilpatrick MD LAB - CHEMISTRY OR DERABLES Performing Organization Address [facility] Co de Phone Number [address] [address], [facility] [phone] * (ABNORMAL) BASIC METABOLIC PANEL (CALCIUM TOTAL) (09/29/2021 12:36 PM CDT) [facility] BUN 19 7 - 26 mg/dL 09/29/2021 1:07 PM [facility] Creatinine 1.89(H) 0.71 - 1.16 mg/dL 09/29/2021 1:07 PM [facility] Sodium 141 136 - 145 mmol/L 09/29/2021 1:07 PM [facility] Potassium 3.8 3.5 - 4.5 mmol/L 09/29/2021 1:07 PM [facility] Chloride 104 98 - 107 mmol/L 09/29/2021 1:07 PM [facility] CO2 29 22 - 29 mmol/L 09/29/2021 1:07 PM [facility] Glucose 121(H) 70 - 115 mg/dL 09/29/2021 1:07 PM [facility] Calcium 8.0(L) 8.4 - 10.2 mg/dL 09/29/2021 1:07 PM [facility] Anion Gap 12 8 - 18 09/29/2021 1:07 PM [facility] BUN/Creatinine Ratio 10 7 - 23 09/29/2021 1:07 PM [facility] Osmolality Calculated 296 270 - 300 mOsm/kg 09/29/2021 1:07 PM [facility] eGFR by CKD-EPI 46(L) >=90 mL/min/1.7 3 m2 09/29/2021 1:07 PM [facility] Blood BLOOD SPECIMEN / Unknown Venipuncture / Unknown 09/29/2021 12:36 PM CDT 09/29/2021 12:43 PM CDT Dar Kilpatrick MD LAB - CHEMISTRY OR DERABLES [facility] [address] [place] [address], [facility] [phone] * (ABNORMAL) CBC W AUTO DIFFERENTIAL (09/29/2021 12:36 PM CDT) WBC 9.5 3.5 - 10.5 10? 3 /uL 09/29/2021 12:48 PM [facility] RBC 2.30(L) 4.30 - 5.70 10? 6 /uL 09/29/2021 12:48 PM [facility] Hemoglobin 7.2(L) 12.0 - 17.6 g/dL 09/29/2021 12:48 PM [facility] Hematocrit 20.9(L) 35.2 - 51.7 % 09/29/2021 12:48 PM [facility] MCV 90.9 80.7 - 98.3 fL 09/29/2021 12:48 PM [facility] MCH 31.3 26.7 - 34.0 pg 09/29/2021 12:48 PM [facility] MCHC 34.4 30.8 - 35.9 g/dL 09/29/2021 12:48 PM [facility] Platelet Count 106(L) 150 - 400 10? 3 /uL 09/29/2021 12:48 PM [facility] RDW-SD 46.7 36.0 - 50.0 fL 09/29/2021 12:48 PM [facility] RDW-CV 14.2 11.2 - 14.8 % 09/29/2021 12:48 PM [facility] MPV 11.1 9.4 - 12.9 fL 09/29/2021 12:48 PM [facility] nRBC Absolute 0.00 0 10? 3 /uL 09/29/2021 12:48 PM [facility] nRBC Auto 0.0 0 /100 WBC 09/29/2021 12:48 PM [facility] Neutrophils % 80.7(H) 35.0 - 70.0 % 09/29/2021 12:48 PM [facility] Lymphocytes % 9.2(L) 20.0 - 43.0 % 09/29/2021 12:48 PM [facility] Monocytes % 9.0 5.0 - 13.0 % 09/29/2021 12:48 PM [facility] Eosinophils % 0.2 0.0 - 6.0 % 09/29/2021 12:48 PM [facility] Basophil % 0.2 0.0 - 2.0 % 09/29/2021 12:48 PM [facility] Neutrophils Absolute 7.63(H) 1.60 - 7.00 10? 3 /uL 09/29/2021 12:48 PM [facility] Lymphocyte Absolute 0.87(L) 1.10 - 3.90 10? 3 /uL 09/29/2021 12:48 PM [facility] Monocytes Absolute 0.85 0.26 - 1.07 10? 3 /uL 09/29/2021 12:48 PM [facility] Eosinophils Absolute 0.02 0.00 - 0.47 10? 3 /uL 09/29/2021 12:48 PM [facility] Basophils Absolute 0.02 0.00 - 0.08 10? 3 /uL 09/29/2021 12:48 PM [facility] Immature Granulocytes % 0.7 0.0 - 1.0 % 09/29/2021 12:48 PM CDT [facility] Immature Granulocytes Absolute 0.07 09/29/2021 12:48 PM CDT [facility] Immature Platelet Fraction 5.0 1.1 - 6.2 % 09/29/2021 12:48 PM CDT [facility] Blood BLOOD SPECIMEN / Unknown Venipuncture / Unknown 09/29/2021 12:36 PM CDT 09/29/2021 12:43 PM CDT Darrell Gomez MD LAB - HEMATOLOGY ORD ERABLES Performing Organization Address City/[facility]/ZIP Co de Phone Number [address] [address], [place] [phone] * (ABNORMAL) GLUCOSE - POINT OF CARE (09/29/2021 12:23 PM CDT) Glucose WB/POC 130(H) 70 - 115 mg/dL 09/29/2021 12:24 PM CDT [facility] Specimen Type Cap Fingerstick 2021 12:24 PM CDT [facility] Blood BLOOD SPECIMEN / Unknown 09/29/2021 12:23 PM CDT 09/29/2021 12:24 PM CDT Dar Kilpatrick MD LAB - POINT OF CAR E ORDERABLES Performing Organization Address [facility]/ZIP Co de Phone Number [address] [address], [place] [phone] * (ABNORMAL) GLUCOSE - POINT OF CARE (09/29/2021 8:45 AM CDT) Glucose WB/POC 189(H) 70 - 115 mg/dL 09/29/2021 8:50 AM CDT [facility] Specimen Type Arterial 09/29/2021 8:50 AM CDT [facility] Blood BLOOD SPECIMEN / Unknown 09/29/2021 8:45 AM CDT 09/29/2021 8:50 AM CDT Dar Kilpatrick MD LAB - POINT OF CAR E ORDERABLES [facility] [address] [place] [address], [facility] [phone] * (ABNORMAL) BLOOD GASES ART + COOX PANEL (09/29/2021 6:03 AM [facility]) pH Arterial 7.47(H) 7.35 - 7.45 pH 09/29/2021 6:10 AM [facility] pO2 Arterial 133(H) 80 - 100 mmHg 09/29/2021 6:10 AM [facility] pCO2 Arterial 38 35 - 45 mmHg 6:10 AM [facility] HCO3 Arterial 28 20 - 30 mmol/l 09/29/2021 6:10 AM [facility] BE Arterial 3.8(H) -2.0 - 2.0 mmol/L 09/29/2021 6:10 AM [facility] Oxyhemoglobin Arterial 97.1 % 09/29/2021 6:10 AM [facility] Dexoyhemoglobin (HHB) % 1.6 % 09/29/2021 6:10 AM [facility] Methemoglobin <0.8 0.0 - 2.0 % 09/29/2021 6:10 AM [facility] Carboxyhemoglobin 0.8 0.0 - 2.0 % 2021 6:10 AM [facility] O2 Content Arterial 11.6 Interpret within clinical context mg/dL 09/29/2021 6:10 AM [facility] Hemoglobin by COOX 8.3(L) 12.0 - 17.6 g/dL 09/29/2021 6:10 AM [facility] O2 Saturation Arterial 98 90 - 100 % 09/29/2021 6:10 AM [facility] FI O2 Arterial 40.0 % 09/29/2021 6:10 AM [facility] Blood, arterial ARTERIAL BLOOD SPECIMEN / Unknown Arterial Puncture / Unknown 09/29/2021 6:03 AM CDT 09/29/2021 6:06 AM [facility] - 09/29/2021 6:10 AM CDT Carboxyhemoglobin Normal Concentration: Non-smokers: 0-2%; Smokers: 0-9%; Toxic: >20% Dar Kilpatrick MD LAB - BLOOD GASES ORDERABLES Performing Organization Address [facility] Co de Phone Number [address] [address], [facility] [phone] * (ABNORMAL) CALCIUM IONIZED WHOLE BLOOD (09/29/2021 6:03 AM CDT) Pathologist [facility] Calcium Ionized 1.19 mmol/L 09/29/2021 6:11 AM T [facility] pH 7.46(H) 7.35 - 7.45 pH 09/29/2021 6:11 AM T [facility] Ionized Calcium pH Adjusted 1.22 1.19 - 1.34 mmol/L 09/29/2021 6:11 AM T [facility] Blood BLOOD SPECIMEN / Unknown Venipuncture / Unknown 09/29/2021 6:03 AM CDT 09/29/2021 6:06 AM CDT Dar Kilpatrick MD LAB - CHEMISTRY OR DERABLES Performing Organization Address [facility] Co de Phone Number [address] [address], [facility] [phone] * (ABNORMAL) BASIC METABOLIC PANEL (CALCIUM TOTAL) (09/29/2021 6:03 AM CDT) Pathologist [facility] BUN 20 7 - 26 mg/dL 09/29/2021 6:53 AM T [facility] Creatinine 1.97(H) 0.71 - 1.16 mg/dL 09/29/2021 6:53 AM T [facility] Sodium 140 136 - 145 mmol/L 09/29/2021 6:53 AM T [facility] Potassium 3.9 3.5 - 4.5 mmol/L 09/29/2021 6:53 AM T [facility] Chloride 107 98 - 107 mmol/L 09/29/2021 6:53 AM T [facility] CO2 27 22 - 29 mmol/L 09/29/2021 6:53 AM [facility] Glucose 136(H) 70 - 115 mg/dL 09/29/2021 6:53 AM [facility] Calcium 8.2(L) 8.4 - 10.2 mg/dL 09/29/2021 6:53 AM [facility] Anion Gap 10 8 - 18 09/29/2021 6:53 AM [facility] BUN/Creatinine Ratio 10 7 - 23 09/29/2021 6:53 AM [facility] Osmolality Calculated 295 270 - 300 mOsm/kg 09/29/2021 6:53 AM [facility] eGFR by CKD-EPI 44(L) >=90 mL/min/1.7 3 m2 09/29/2021 6:53 AM [facility] Blood BLOOD SPECIMEN / Unknown Venipuncture / Unknown 09/29/2021 6:03 AM CDT 09/29/2021 6:07 AM T Dar Kilpatrick MD LAB - CHEMISTRY OR DERABLES Performing Organization Address [facility]/State/ZIP Co de Phone Number [address] [address], [facility] [phone] * (ABNORMAL) CBC W AUTO DIFFERENTIAL (09/29/2021 6:03 AM CDT) WBC 10.4 3.5 - 10.5 10? 3 /uL 09/29/2021 6:18 AM [facility] RBC 2.48(L) 4.30 - 5.70 10? 6 /uL 09/29/2021 6:18 AM [facility] Hemoglobin 7.7(L) 12.0 - 17.6 g/dL 09/29/2021 6:18 AM [facility] Hematocrit 22.5(L) 35.2 - 51.7 % 09/29/2021 6:18 AM [facility] MCV 90.7 80.7 - 98.3 fL 09/29/2021 6:18 AM [facility] MCH 31.0 26.7 - 34.0 pg 09/29/2021 6:18 AM [facility] MCHC 34.2 30.8 - 35.9 g/dL 09/29/2021 6:18 AM [facility] Platelet Count 106(L) 150 - 400 10? 3 /uL 09/29/2021 6:18 AM [facility] RDW-SD 46.5 36.0 - 50.0 fL 09/29/2021 6:18 AM [facility] RDW-CV 14.0 11.2 - 14.8 % 09/29/2021 6:18 AM [facility] MPV 10.6 9.4 - 12.9 fL 09/29/2021 6:18 AM [facility] nRBC Absolute 0.00 0 10? 3 /uL 09/29/2021 6:18 AM [facility] nRBC Auto 0.0 0 /100 WBC 09/29/2021 6:18 AM [facility] Neutrophils % 80.3(H) 35.0 - 70.0 % 09/29/2021 6:18 AM [facility] Lymphocytes % 10.4(L) 20.0 - 43.0 % 09/29/2021 6:18 AM [facility] Monocytes % 8.3 5.0 - 13.0 % 09/29/2021 6:18 AM [facility] Eosinophils % 0.3 0.0 - 6.0 % 09/29/2021 6:18 AM [facility] Basophil % 0.2 0.0 - 2.0 % 09/29/2021 6:18 AM [facility] Neutrophils Absolute 8.32(H) 1.60 - 7.00 10? 3 /uL 09/29/2021 6:18 AM [facility] Lymphocyte Absolute 1.08(L) 1.10 - 3.90 10? 3 /uL 09/29/2021 6:18 AM [facility] Monocytes Absolute 0.86 0.26 - 1.07 10? 3 /uL 09/29/2021 6:18 AM [facility] Eosinophils Absolute 0.03 0.00 - 0.47 10? 3 /uL 09/29/2021 6:18 AM CDT [facility] Basophils Absolute 0.02 0.00 - 0.08 10? 3 /uL 09/29/2021 6:18 AM CDT [facility] Immature Granulocytes % 0.5 0.0 - 1.0 % 09/29/2021 6:18 AM CDT [facility] Immature Granulocytes Absolute 0.05 09/29/2021 6:18 AM CDT [facility] Blood BLOOD SPECIMEN / Unknown Venipuncture / Unknown 09/29/2021 6:03 AM CDT 09/29/2021 6:07 AM CDT Darrell Gomez MD LAB - HEMATOLOGY ORD ERABLES [facility] [address] [place] [address], [facility] [phone] * XR CHEST 1VW PORTABLE (09/29/2021 4:27 [...] Report dictated by Elmer Gomez MD, PhD (financial institution president). I, Dr. MICAELA MCCULLOUGH have personally reviewed [...] the midthoracic trachea, 4 cm above the jaun c. *Enteric tube course below the diaphragm, [...] Report dictated by Elmer Gomez MD, PhD (financial institution president). I, Dr. MICAELA MCCULLOUGH have personally reviewed and interpreted this examination/study. This report was electronically signed by MICAELA MCCULLOUGH on 1:18 AM . Dar Kilpatrick MD DIAGNOSTIC IMAGING ORDERABLES * (ABNORMAL) GLUCOSE - POINT OF CARE (09/29/2021 3:59 AM CDT) Glucose WB/POC 136(H) 70 - 115 mg/dL 09/29/2021 4:04 AM CDT [facility] Specimen Type Arterial 09/29/2021 4:04 AM CDT [facility] Blood BLOOD SPECIMEN / Unknown 09/29/2021 3:59 AM CDT 09/29/2021 4:04 AM CDT Dar Kilpatrick MD LAB - POINT OF CAR E ORDERABLES [facility] [address] [place] [address], [place] [phone] * PHOSPHORUS BLOOD (09/29/2021 12:12 AM CDT) Phosphorus 3.6 2.8 - 5.1 mg/dL 09/29/2021 12:49 AM CDT [facility] Blood BLOOD SPECIMEN / Unknown Venipuncture / Unknown 09/29/2021 12:12 AM CDT 09/29/2021 12:18 AM CDT Dar Kilpatrick MD LAB - CHEMISTRY OR DERABLES Performing Organization Address City/[facility]/ZIP Co de Phone Number [address] [address], [facility] [phone] * MAGNESIUM BLOOD (09/29/2021 12:12 AM CDT) Magnesium 1.7 1.6 - 2.6 mg/dL 09/29/2021 12:49 AM T [facility] Blood BLOOD SPECIMEN / Unknown Venipuncture / Unknown 09/29/2021 12:12 AM CDT 09/29/2021 12:18 AM CDT Dar Kilpatrick MD LAB - CHEMISTRY OR DERABLES Performing Organization Address [facility] Co de Phone Number [address] [address], [facility] [phone] * (ABNORMAL) BLOOD GASES ART + COOX PANEL (09/29/2021 12:12 AM CDT) pH Arterial 7.44 7.35 - 7.45 pH 09/29/2021 12:19 AM [facility] pO2 Arterial 131(H) 80 - 100 mmHg 09/29/2021 12:19 AM [facility] pCO2 Arterial 37 35 - 45 mmHg 12:19 AM [facility] HCO3 Arterial 25 20 - 30 mmol/l 09/29/2021 12:19 AM [facility] BE Arterial 1.0 -2.0 - 2.0 mmol/L 09/29/2021 12:19 AM [facility] Oxyhemoglobin Arterial 97.4 % 09/29/2021 12:19 AM [facility] Dexoyhemoglobin (HHB) % 1.4 % 09/29/2021 12:19 AM [facility] Methemoglobin <0.8 0.0 - 2.0 % 09/29/2021 12:19 AM [facility] Carboxyhemoglobin 0.9 0.0 - 2.0 % 2021 12:19 AM [facility] O2 Content Arterial 12.2 Interpret within clinical context mg/dL 09/29/2021 12:19 AM [facility] Hemoglobin by COOX 8.7(L) 12.0 - 17.6 g/dL 09/29/2021 12:19 AM [facility] O2 Saturation Arterial 99 90 - 100 % 09/29/2021 12:19 AM [facility] FI O2 Arterial 40.0 % 09/29/2021 12:19 AM [facility] Blood, arterial ARTERIAL BLOOD SPECIMEN / Unknown Arterial Puncture / Unknown 09/29/2021 12:12 AM [facility] 09/29/2021 12:17 AM [facility] - 09/29/2021 12:19 AM [facility] Carboxyhemoglobin Normal Concentration: Non-smokers: 0-2%; Smokers: 0-9%; Toxic: >20% Dar Kilpatrick MD LAB - BLOOD GASES ORDERABLES Performing Organization Address City/State/[facility] Co de Phone Number [address] [address], [facility] [phone] * (ABNORMAL) CALCIUM IONIZED WHOLE BLOOD (09/29/2021 12:12 AM [facility]) Calcium Ionized 1.15 mmol/L 09/29/2021 12:21 AM [facility] pH 7.43 7.35 - 7.45 pH 09/29/2021 12:21 AM [facility] Ionized Calcium pH Adjusted 1.16(L) 1.19 - 1.34 mmol/L 09/29/2021 12:21 AM [facility] Blood BLOOD SPECIMEN / Unknown Venipuncture / Unknown 09/29/2021 12:12 AM CDT 09/29/2021 12:17 AM CDT Dar Kilpatrick MD LAB - CHEMISTRY OR DERABLES [facility] [address] [place] [address], [facility] [phone] * (ABNORMAL) BASIC METABOLIC PANEL (CALCIUM TOTAL) (09/29/2021 12:12 AM CDT) BUN 18 7 - 26 mg/dL 09/29/2021 12:49 AM [facility] Creatinine 2.01(H) 0.71 - 1.16 mg/dL 09/29/2021 12:49 AM [facility] Sodium 141 136 - 145 mmol/L 09/29/2021 12:49 AM [facility] Potassium 4.1 3.5 - 4.5 mmol/L 09/29/2021 12:49 AM [facility] Chloride 109(H) 98 - 107 mmol/L 09/29/2021 12:49 AM [facility] CO2 24 22 - 29 mmol/L 09/29/2021 12:49 AM [facility] Glucose 140(H) 70 - 115 mg/dL 09/29/2021 12:49 AM [facility] Calcium 8.0(L) 8.4 - 10.2 mg/dL 09/29/2021 12:49 AM [facility] Anion Gap 12 8 - 18 09/29/2021 12:49 AM [facility] BUN/Creatinine Ratio 9 7 - 23 09/29/2021 12:49 AM [facility] Osmolality Calculated 296 270 - 300 mOsm/kg 09/29/2021 12:49 AM [facility] eGFR by CKD-EPI 43(L) >=90 mL/min/1.7 3 m2 09/29/2021 12:49 AM [facility] Blood BLOOD SPECIMEN / Unknown Venipuncture / Unknown 09/29/2021 12:12 AM CDT 09/29/2021 12:18 AM CDT Dar Kilpatrick MD LAB - CHEMISTRY OR DERABLES Performing Organization Address City/State/[facility] Co de Phone Number [facility] [address] [place] [address], [facility] [phone] * (ABNORMAL) CBC W AUTO DIFFERENTIAL (09/29/2021 12:12 AM CDT) WBC 11.2(H) 3.5 - 10.5 10? 3 /uL 09/29/2021 12:32 AM [facility] RBC 2.63(L) 4.30 - 5.70 10? 6 /uL 09/29/2021 12:32 AM [facility] Hemoglobin 8.2(L) 12.0 - 17.6 g/dL 09/29/2021 12:32 AM [facility] Hematocrit 23.9(L) 35.2 - 51.7 % 09/29/2021 12:32 AM [facility] MCV 90.9 80.7 - 98.3 fL 09/29/2021 12:32 AM [facility] MCH 31.2 26.7 - 34.0 pg 09/29/2021 12:32 AM [facility] MCHC 34.3 30.8 - 35.9 g/dL 09/29/2021 12:32 AM [facility] Platelet Count 126(L) 150 - 400 10? 3 /uL 09/29/2021 12:32 AM [facility] RDW-SD 46.6 36.0 - 50.0 fL 09/29/2021 12:32 AM [facility] RDW-CV 14.0 11.2 - 14.8 % 09/29/2021 12:32 AM [facility] MPV 10.7 9.4 - 12.9 fL 09/29/2021 12:32 AM [facility] nRBC Absolute 0.00 0 10? 3 /uL 09/29/2021 12:32 AM [facility] nRBC Auto 0.0 0 /100 WBC 09/29/2021 12:32 AM [facility] Neutrophils % 82.3(H) 35.0 - 70.0 % 09/29/2021 12:32 AM [facility] Lymphocytes % 8.9(L) 20.0 - 43.0 % 09/29/2021 12:32 AM [facility] Monocytes % 8.2 5.0 - 13.0 % 09/29/2021 12:32 AM [facility] Eosinophils % 0.1 0.0 - 6.0 % 09/29/2021 12:32 AM [facility] Basophil % 0.1 0.0 - 2.0 % 09/29/2021 12:32 AM [facility] Neutrophils Absolute 9.20(H) 1.60 - 7.00 10? 3 /uL 09/29/2021 12:32 AM [facility] Lymphocyte Absolute 1.00(L) 1.10 - 3.90 10? 3 /uL 09/29/2021 12:32 AM [facility] Monocytes Absolute 0.92 0.26 - 1.07 10? 3 /uL 09/29/2021 12:32 AM [facility] Eosinophils Absolute 0.01 0.00 - 0.47 10? 3 /uL 09/29/2021 12:32 AM [facility] Basophils Absolute 0.01 0.00 - 0.08 10? 3 /uL 09/29/2021 12:32 AM [facility] Immature Granulocytes % 0.4 0.0 - 1.0 % 09/29/2021 12:32 AM [facility] Immature Granulocytes Absolute 0.05 09/29/2021 12:32 AM [facility] Immature Platelet Fraction 4.5 1.1 - 6.2 % 09/29/2021 12:32 AM [facility] Blood BLOOD SPECIMEN / Unknown Venipuncture / Unknown 09/29/2021 12:12 AM CDT 09/29/2021 12:18 AM [facility] Darrell Gomez MD LAB - HEMATOLOGY ORD ERABLES [facility] [address] [place] [address], [facility] [phone] * (ABNORMAL) GLUCOSE - POINT OF CARE (09/29/2021 12:11 AM CDT) Glucose WB/POC 142(H) 70 - 115 mg/dL 09/29/2021 12:12 AM CDT [facility] Specimen Type Arterial 09/29/2021 12:12 AM CDT [facility] Blood BLOOD SPECIMEN / Unknown 09/29/2021 12:11 AM CDT 09/29/2021 12:12 AM CDT Dar Kilpatrick MD LAB - POINT OF CAR E ORDERABLES Performing Organization Address City/[facility]/ZIP Co de Phone Number [address] [address], [place] [phone] * (ABNORMAL) GLUCOSE - POINT OF CARE (09/28/2021 8:03 PM CDT) Glucose WB/POC 136(H) 70 - 115 mg/dL 09/28/2021 8:05 PM CDT [facility] Specimen Type Cap Fingerstick 2021 8:05 PM CDT [facility] Blood BLOOD SPECIMEN / Unknown 09/28/2021 8:03 PM CDT 09/28/2021 8:05 PM CDT Dar Kilpatrick MD LAB - POINT OF CAR E ORDERABLES [address] [address], [place] [phone] * (ABNORMAL) BLOOD GASES ART + COOX PANEL (09/28/2021 5:49 PM CDT) pH Arterial 7.39 7.35 - 7.45 pH 09/28/2021 5:58 PM CDT [facility] pO2 Arterial 129(H) 80 - 100 mmHg 09/28/2021 5:58 PM CDT [facility] pCO2 Arterial 34(L) 35 - 45 mmHg 5:58 PM CDT [facility] HCO3 Arterial 21 20 - 30 mmol/l 09/28/2021 5:58 PM [facility] BE Arterial -3.8(L) -2.0 - 2.0 mmol/L 09/28/2021 5:58 PM [facility] Oxyhemoglobin Arterial 98.3 % 09/28/2021 5:58 PM [facility] Dexoyhemoglobin (HHB) % 0.3 % 09/28/2021 5:58 PM [facility] Methemoglobin <0.8 0.0 - 2.0 % 09/28/2021 5:58 PM [facility] Carboxyhemoglobin 1.1 0.0 - 2.0 % 2021 5:58 PM [facility] O2 Content Arterial 13.2 Interpret within clinical context mg/dL 09/28/2021 5:58 PM [facility] Hemoglobin by COOX 9.4(L) 12.0 - 17.6 g/dL 09/28/2021 5:58 PM [facility] O2 Saturation Arterial 100 90 - 100 % 09/28/2021 5:58 PM [facility] FI O2 Arterial 40.0 % 09/28/2021 5:58 PM [facility] Blood, arterial ARTERIAL BLOOD SPECIMEN / Unknown Arterial Puncture / Unknown 09/28/2021 5:49 PM CDT 09/28/2021 5:53 PM CDT Narrative [facility] - 09/28/2021 5:58 PM CDT Carboxyhemoglobin Normal Concentration: Non-smokers: 0-2%; Smokers: 0-9%; Toxic: >20% Dar Kilpatrick MD LAB - BLOOD GASES ORDERABLES [facility] [address] [place] [phone], [facility] [phone] * CALCIUM IONIZED WHOLE BLOOD (09/28/2021 5:49 PM CDT) Calcium Ionized 1.21 mmol/L 09/28/2021 5:59 PM [facility] pH 7.37 7.35 - 7.45 pH 09/28/2021 5:59 PM [facility] Ionized Calcium pH Adjusted 1.20 1.19 - 1.34 mmol/L 09/28/2021 5:59 PM [facility] Blood BLOOD SPECIMEN / Unknown Venipuncture / Unknown 09/28/2021 5:49 PM CDT 09/28/2021 5:53 PM CDT Dar Kilpatrick MD LAB - CHEMISTRY OR DERABLES [facility] [address] [place] [address], [facility] [phone] * (ABNORMAL) BASIC METABOLIC PANEL (CALCIUM TOTAL) (09/28/2021 5:49 PM CDT) BUN 17 7 - 26 mg/dL 09/28/2021 6:22 PM [facility] Creatinine 1.96(H) 0.71 - 1.16 mg/dL 09/28/2021 6:22 PM [facility] Sodium 141 136 - 145 mmol/L 09/28/2021 6:22 PM [facility] Potassium 4.8(H) 3.5 - 4.5 mmol/L 09/28/2021 6:22 PM [facility] Chloride 113(H) 98 - 107 mmol/L 09/28/2021 6:22 PM [facility] CO2 20(L) 22 - 29 mmol/L 09/28/2021 6:22 PM [facility] Glucose 125(H) 70 - 115 mg/dL 09/28/2021 6:22 PM [facility] Calcium 8.3(L) 8.4 - 10.2 mg/dL 09/28/2021 6:22 PM [facility] Anion Gap 13 8 - 18 09/28/2021 6:22 PM [facility] BUN/Creatinine Ratio 9 7 - 23 09/28/2021 6:22 PM [facility] Osmolality Calculated 295 270 - 300 mOsm/kg 09/28/2021 6:22 PM [facility] eGFR by CKD-EPI 44(L) >=90 mL/min/1.7 3 m2 09/28/2021 6:22 PM [facility] Blood BLOOD SPECIMEN / Unknown Venipuncture / Unknown 09/28/2021 5:49 PM CDT 09/28/2021 5:54 PM CDT Dar Kilpatrick MD LAB - CHEMISTRY OR DERABLES Performing Organization Address [facility] Co de Phone Number [facility] [address] [place] [address], [facility] [phone] * (ABNORMAL) CBC W AUTO DIFFERENTIAL (09/28/2021 5:49 PM CDT) WBC 12.6(H) 3.5 - 10.5 10? 3 /uL 09/28/2021 5:58 PM [facility] RBC 2.93(L) 4.30 - 5.70 10? 6 /uL 09/28/2021 5:58 PM [facility] Hemoglobin 9.2(L) 12.0 - 17.6 g/dL 09/28/2021 5:58 PM [facility] Hematocrit 26.7(L) 35.2 - 51.7 % 09/28/2021 5:58 PM [facility] MCV 91.1 80.7 - 98.3 fL 09/28/2021 5:58 PM [facility] MCH 31.4 26.7 - 34.0 pg 09/28/2021 5:58 PM [facility] MCHC 34.5 30.8 - 35.9 g/dL 09/28/2021 5:58 PM [facility] Platelet Count 144(L) 150 - 400 10? 3 /uL 09/28/2021 5:58 PM [facility] RDW-SD 47.6 36.0 - 50.0 fL 09/28/2021 5:58 PM [facility] RDW-CV 14.1 11.2 - 14.8 % 09/28/2021 5:58 PM [facility] MPV 10.3 9.4 - 12.9 fL 09/28/2021 5:58 PM [facility] nRBC Absolute 0.00 0 10? 3 /uL 09/28/2021 5:58 PM [facility] nRBC Auto 0.0 0 /100 WBC 09/28/2021 5:58 PM [facility] Neutrophils % 84.9(H) 35.0 - 70.0 % 09/28/2021 5:58 PM [facility] Lymphocytes % 7.3(L) 20.0 - 43.0 % 09/28/2021 5:58 PM [facility] Monocytes % 7.1 5.0 - 13.0 % 09/28/2021 5:58 PM [facility] Eosinophils % 0.0 0.0 - 6.0 % 09/28/2021 5:58 PM [facility] Basophil % 0.1 0.0 - 2.0 % 09/28/2021 5:58 PM [facility] Neutrophils Absolute 10.72(H) 1.60 - 7.00 10? 3 /uL 09/28/2021 5:58 PM [facility] Lymphocyte Absolute 0.92(L) 1.10 - 3.90 10? 3 /uL 09/28/2021 5:58 PM [facility] Monocytes Absolute 0.89 0.26 - 1.07 10? 3 /uL 09/28/2021 5:58 PM [facility] Eosinophils Absolute 0.00 0.00 - 0.47 10? 3 /uL 09/28/2021 5:58 PM [facility] Basophils Absolute 0.01 0.00 - 0.08 10? 3 /uL 09/28/2021 5:58 PM [facility] Immature Granulocytes % 0.6 0.0 - 1.0 % 09/28/2021 5:58 PM [facility] Immature Granulocytes Absolute 0.08 09/28/2021 5:58 PM [facility] Immature Platelet Fraction 4.1 1.1 - 6.2 % 09/28/2021 5:58 PM [facility] Blood BLOOD SPECIMEN / Unknown Venipuncture / Unknown 09/28/2021 5:49 PM CDT 09/28/2021 5:54 PM CDT Darrell Gomez MD LAB - HEMATOLOGY ORD ERABLES [facility] [address] [place] [address], [facility] [phone] * (ABNORMAL) GLUCOSE - POINT OF CARE (09/28/2021 4:05 PM CDT) Pathologist [facility] Glucose WB/POC 129(H) 70 - 115 mg/dL 09/28/2021 4:10 PM CDT [facility] Specimen Type Arterial 09/28/2021 4:10 PM T [facility] Blood BLOOD SPECIMEN / Unknown 09/28/2021 4:05 PM CDT 09/28/2021 4:10 PM CDT Dar Kilpatrick MD LAB - POINT OF CAR E ORDERABLES Performing Organization Address City/[facility]/ZIP Co de Phone Number [facility] [address] [place] [address], [facility] [phone] * (ABNORMAL) BLOOD GASES ART + COOX PANEL (09/28/2021 11:54 AM CDT) Pathologist [facility] pH Arterial 7.33(L) 7.35 - 7.45 pH 09/28/2021 12:04 PM [facility] pO2 Arterial 141(H) 80 - 100 mmHg 09/28/2021 12:04 PM [facility] pCO2 Arterial 37 35 - 45 mmHg 12:04 PM T [facility] HCO3 Arterial 20 20 - 30 mmol/l 09/28/2021 12:04 PM T [facility] BE Arterial -5.9(L) -2.0 - 2.0 mmol/L 09/28/2021 12:04 PM [facility] Oxyhemoglobin Arterial 97.5 % 09/28/2021 12:04 PM [facility] Dexoyhemoglobin (HHB) % 0.7 % 09/28/2021 12:04 PM [facility] Methemoglobin 0.8 0.0 - 2.0 % 09/28/2021 12:04 PM [facility] Carboxyhemoglobin 1.0 0.0 - 2.0 % 2021 12:04 PM [facility] O2 Content Arterial 14.9 Interpret within clinical context mg/dL 09/28/2021 12:04 PM [facility] Hemoglobin by COOX 10.7(L) 12.0 - 17.6 g/dL 09/28/2021 12:04 PM [facility] O2 Saturation Arterial 99 90 - 100 % 09/28/2021 12:04 PM [facility] FI O2 Arterial 40.0 % 09/28/2021 12:04 PM [facility] Blood, arterial ARTERIAL BLOOD SPECIMEN / Unknown Arterial Puncture / Unknown 09/28/2021 11:54 AM CDT 09/28/2021 12:01 PM CDT Narrative [facility] - 09/28/2021 12:04 PM [facility] Carboxyhemoglobin Normal Concentration: Non-smokers: 0-2%; Smokers: 0-9%; Toxic: >20% Dar Kilpatrick MD LAB - BLOOD GASES ORDERABLES Performing Organization Address City/State/[facility] Co de Phone Number [facility] [address] [place] [phone], [facility] [phone] * (ABNORMAL) CALCIUM IONIZED WHOLE BLOOD (09/28/2021 11:54 AM CDT) Calcium Ionized 1.22 mmol/L 09/28/2021 12:05 PM [facility] pH 7.33(L) 7.35 - 7.45 pH 09/28/2021 12:05 PM [facility] Ionized Calcium pH Adjusted 1.19 1.19 - 1.34 mmol/L 09/28/2021 12:05 PM [facility] Blood BLOOD SPECIMEN / Unknown Venipuncture / Unknown 09/28/2021 11:54 AM CDT 09/28/2021 12:01 PM CDT Dar Kilpatrick MD LAB - CHEMISTRY OR DERABLES Performing Organization Address City/[facility]/ZIP Co de Phone Number [facility] [address] [place] [address], [facility] [phone] * (ABNORMAL) BASIC METABOLIC PANEL (CALCIUM TOTAL) (09/28/2021 11:54 AM CDT) BUN 15 7 - 26 mg/dL 09/28/2021 1:22 PM [facility] Creatinine 1.78(H) 0.71 - 1.16 mg/dL 09/28/2021 1:22 PM [facility] Sodium 141 136 - 145 mmol/L 09/28/2021 1:22 PM [facility] Potassium 5.1(H) 3.5 - 4.5 mmol/L 09/28/2021 1:22 PM [facility] Chloride 113(H) 98 - 107 mmol/L 09/28/2021 1:22 PM [facility] CO2 19(L) 22 - 29 mmol/L 09/28/2021 1:22 PM [facility] Glucose 123(H) 70 - 115 mg/dL 09/28/2021 1:22 PM [facility] Calcium 8.5 8.4 - 10.2 mg/dL 09/28/2021 1:22 PM [facility] Anion Gap 14 8 - 18 09/28/2021 1:22 PM [facility] BUN/Creatinine Ratio 8 7 - 23 09/28/2021 1:22 PM [facility] Osmolality Calculated 294 270 - 300 mOsm/kg 09/28/2021 1:22 PM [facility] eGFR by CKD-EPI 49(L) >=90 mL/min/1.7 3 m2 09/28/2021 1:22 PM [facility] Blood BLOOD SPECIMEN / Unknown Venipuncture / Unknown 09/28/2021 11:54 AM CDT 09/28/2021 12:24 PM CDT Dar Kilpatrick MD LAB - CHEMISTRY OR DERABLES [address] [address], [facility] [phone] * (ABNORMAL) CBC W AUTO DIFFERENTIAL (09/28/2021 11:54 AM CDT) [facility] Signature WBC 15.2(H) 3.5 - 10.5 10? 3 /uL 09/28/2021 12:35 PM [facility] RBC 3.31(L) 4.30 - 5.70 10? 6 /uL 09/28/2021 12:35 PM [facility] Hemoglobin 10.3(L) 12.0 - 17.6 g/dL 09/28/2021 12:35 PM [facility] Hematocrit 30.5(L) 35.2 - 51.7 % 09/28/2021 12:35 PM [facility] MCV 92.1 80.7 - 98.3 fL 09/28/2021 12:35 PM [facility] MCH 31.1 26.7 - 34.0 pg 09/28/2021 12:35 PM [facility] MCHC 33.8 30.8 - 35.9 g/dL 09/28/2021 12:35 PM [facility] Platelet Count 143(L) 150 - 400 10? 3 /uL 09/28/2021 12:35 PM [facility] RDW-SD 47.8 36.0 - 50.0 fL 09/28/2021 12:35 PM [facility] RDW-CV 14.1 11.2 - 14.8 % 09/28/2021 12:35 PM [facility] MPV 10.5 9.4 - 12.9 fL 09/28/2021 12:35 PM [facility] nRBC Absolute 0.00 0 10? 3 /uL 09/28/2021 12:35 PM [facility] nRBC Auto 0.0 0 /100 WBC 09/28/2021 12:35 PM [facility] Neutrophils % 87.4(H) 35.0 - 70.0 % 09/28/2021 12:35 PM [facility] Lymphocytes % 4.8(L) 20.0 - 43.0 % 09/28/2021 12:35 PM [facility] Monocytes % 7.3 5.0 - 13.0 % 09/28/2021 12:35 PM [facility] Eosinophils % 0.0 0.0 - 6.0 % 09/28/2021 12:35 PM [facility] Basophil % 0.1 0.0 - 2.0 % 09/28/2021 12:35 PM [facility] Neutrophils Absolute 13.28(H) 1.60 - 7.00 10? 3 /uL 09/28/2021 12:35 PM [facility] Lymphocyte Absolute 0.73(L) 1.10 - 3.90 10? 3 /uL 09/28/2021 12:35 PM [facility] Monocytes Absolute 1.11(H) 0.26 - 1.07 10? 3 /uL 09/28/2021 12:35 PM [facility] Eosinophils Absolute 0.00 0.00 - 0.47 10? 3 /uL 09/28/2021 12:35 PM T [facility] Basophils Absolute 0.01 0.00 - 0.08 10? 3 /uL 09/28/2021 12:35 PM [facility] Immature Granulocytes % 0.4 0.0 - 1.0 % 09/28/2021 12:35 PM [facility] Immature Granulocytes Absolute 0.06 09/28/2021 12:35 PM [facility] Blood BLOOD SPECIMEN / Unknown Venipuncture / Unknown 09/28/2021 11:54 AM CDT 09/28/2021 12:24 PM CDT Darrell Gomez MD LAB - HEMATOLOGY ORD ERABLES [facility] [address] [place] [phone], [facility] [phone] * (ABNORMAL) GLUCOSE - POINT OF CARE (09/28/2021 8:21 AM CDT) Glucose WB/POC 137(H) 70 - 115 mg/dL 09/28/2021 8:22 AM CDT [facility] Specimen Type Cap Fingerstick 2021 8:22 AM [facility] Blood BLOOD SPECIMEN / Unknown 09/28/2021 8:21 AM CDT 09/28/2021 8:22 AM CDT Dar Kilpatrick MD LAB - POINT OF CAR E ORDERABLES [facility] [address] [place] [phone], [facility] [phone] * (ABNORMAL) CBC W AUTO DIFFERENTIAL (09/28/2021 6:14 AM CDT) WBC 19.6(H) 3.5 - 10.5 10? 3 /uL 09/28/2021 6:29 AM [facility] RBC 3.44(L) 4.30 - 5.70 10? 6 /uL 09/28/2021 6:29 AM [facility] Hemoglobin 10.7(L) 12.0 - 17.6 g/dL 09/28/2021 6:29 AM [facility] Hematocrit 31.8(L) 35.2 - 51.7 % 09/28/2021 6:29 AM [facility] MCV 92.4 80.7 - 98.3 fL 09/28/2021 6:29 AM [facility] MCH 31.1 26.7 - 34.0 pg 09/28/2021 6:29 AM [facility] MCHC 33.6 30.8 - 35.9 g/dL 09/28/2021 6:29 AM [facility] Platelet Count 181 150 - 400 10? 3 /uL 09/28/2021 6:29 AM [facility] RDW-SD 48.0 36.0 - 50.0 fL 09/28/2021 6:29 AM [facility] RDW-CV 14.1 11.2 - 14.8 % 09/28/2021 6:29 AM [facility] MPV 9.9 9.4 - 12.9 fL 09/28/2021 6:29 AM [facility] nRBC Absolute 0.00 0 10? 3 /uL 09/28/2021 6:29 AM [facility] nRBC Auto 0.0 0 /100 WBC 09/28/2021 6:29 AM [facility] Neutrophils % 88.5(H) 35.0 - 70.0 % 09/28/2021 6:29 AM [facility] Lymphocytes % 3.2(L) 20.0 - 43.0 % 09/28/2021 6:29 AM [facility] Monocytes % 7.7 5.0 - 13.0 % 09/28/2021 6:29 AM [facility] Eosinophils % 0.0 0.0 - 6.0 % 09/28/2021 6:29 AM [facility] Basophil % 0.2 0.0 - 2.0 % 09/28/2021 6:29 AM [facility] Neutrophils Absolute 17.37(H) 1.60 - 7.00 10? 3 /uL 09/28/2021 6:29 AM [facility] Lymphocyte Absolute 0.63(L) 1.10 - 3.90 10? 3 /uL 09/28/2021 6:29 AM [facility] Monocytes Absolute 1.51(H) 0.26 - 1.07 10? 3 /uL 09/28/2021 6:29 AM [facility] Eosinophils Absolute 0.00 0.00 - 0.47 10? 3 /uL 09/28/2021 6:29 AM [facility] Basophils Absolute 0.03 0.00 - 0.08 10? 3 /uL 09/28/2021 6:29 AM [facility] Immature Granulocytes % 0.4 0.0 - 1.0 % 09/28/2021 6:29 AM [facility] Immature Granulocytes Absolute 0.08 09/28/2021 6:29 AM [facility] Blood BLOOD SPECIMEN / Unknown Venipuncture / Unknown 09/28/2021 6:14 AM CDT 09/28/2021 6:20 AM CDT Darrell Gomez MD LAB - HEMATOLOGY ORD ERABLES [facility] [address] [place] [address], [facility] [phone] * XR CHEST 1VW PORTABLE (09/28/2021 4:41 [...] prior CT. Dictated by Donald Ramos MD (financial institution president). Dr. JHON Connor MD have personally reviewed [...] on priorCT. Dictated by Donald Ramos MD (financial institution president). Dr. JHON Connor MD have personally reviewed and interpreted this examination/study. This report was electronically signed by JHON LEBLANC MD on 09/28/2021 2:49 PM . Dar Kilpatrick MD DIAGNOSTIC IMAGING ORDERABLES * (ABNORMAL) GLUCOSE - POINT OF CARE (09/28/2021 3:55 AM CDT) Glucose WB/POC 135(H) 70 - 115 mg/dL 09/28/2021 3:59 AM CDT [facility] Specimen Type Arterial 09/28/2021 3:59 AM CDT [facility] Blood BLOOD SPECIMEN / Unknown 09/28/2021 3:55 AM CDT 09/28/2021 3:59 AM CDT Dar Kilpatrick MD LAB - POINT OF CAR E ORDERABLES [facility] [address] [place] [address], [facility] [phone] * (ABNORMAL) HEMOGLOBIN A1C (09/28/2021 3:55 AM CDT) Hemoglobin A1c 5.9(H) <=5.6 % 09/28/2021 9:03 AM CDT [facility] Estimated Average Glucose 123 mg/dL 09/28/2021 9:03 AM CDT [facility] Comment: HbA1c Interpretation: Normal : < 5.7% Pre-diabetes: 5.7-6.4% Diabetes: Equal to or greater than 6.5% Test results diagnostic of diabetes should be repeated for confirmation. Treatment target values recommended by ADA and other clinical organizations should be used to evaluate metabolic control in patients. Reference: [place] [employer], Standards of Care in Diabetes [...] - CHEMISTRY DANIAL DUPREE Performing Organization Address City/[facility]/ZIP Co de Phone Number [facility] [address] [place] [address], [place] [phone] * (ABNORMAL) GLUCOSE - POINT OF CARE (09/28/2021 2:13 AM CDT) Glucose WB/POC 126(H) 70 - 115 mg/dL 09/28/2021 2:18 AM CDT [facility] Specimen Type Arterial 09/28/2021 2:18 AM CDT [facility] Blood BLOOD SPECIMEN / Unknown 09/28/2021 2:13 AM CDT 09/28/2021 2:18 AM CDT Dar Kilpatrick MD LAB - POINT OF CAR E ORDERABLES Performing Organization Address City/[facility]/ZIP Co de Phone Number [address] [address], [place] [phone] * BLOOD TYPE VERIFICATION (09/28/2021 2:08 AM CDT) ABO Rh O POS 09/28/2021 2:4 6 AM CDT [facility] Blood Bank BLOOD SPECIMEN / Unknown Lab Venipuncture / Unknown 09/28/2021 2:08 AM CDT 09/28/2021 2:18 AM CDT Dar Kilpatrick MD LAB - BLOOD BANK O RDERABLES [facility] [address] [place] [address], [place] [phone] * (ABNORMAL) CBC W AUTO DIFFERENTIAL (09/27/2021 10:55 PM CDT) WBC 14.9(H) 3.5 - 10.5 10? 3 /uL 09/27/2021 11:23 PM CDT [facility] RBC 3.28(L) 4.30 - 5.70 10? 6 /uL 09/27/2021 11:23 PM [facility] Hemoglobin 10.3(L) 12.0 - 17.6 g/dL 09/27/2021 11:23 PM [facility] Hematocrit 30.7(L) 35.2 - 51.7 % 09/27/2021 11:23 PM [facility] MCV 93.6 80.7 - 98.3 fL 09/27/2021 11:23 PM [facility] MCH 31.4 26.7 - 34.0 pg 09/27/2021 11:23 PM [facility] MCHC 33.6 30.8 - 35.9 g/dL 09/27/2021 11:23 PM [facility] Platelet Count 148(L) 150 - 400 10? 3 /uL 09/27/2021 11:23 PM [facility] RDW-SD 47.8 36.0 - 50.0 fL 09/27/2021 11:23 PM [facility] RDW-CV 14.0 11.2 - 14.8 % 09/27/2021 11:23 PM [facility] MPV 9.9 9.4 - 12.9 fL 09/27/2021 11:23 PM [facility] nRBC Absolute 0.00 0 10? 3 /uL 09/27/2021 11:23 PM [facility] nRBC Auto 0.0 0 /100 WBC 09/27/2021 11:23 PM [facility] Neutrophils % 85.0(H) 35.0 - 70.0 % 09/27/2021 11:23 PM [facility] Lymphocytes % 8.3(L) 20.0 - 43.0 % 09/27/2021 11:23 PM [facility] Monocytes % 5.2 5.0 - 13.0 % 09/27/2021 11:23 PM [facility] Eosinophils % 0.5 0.0 - 6.0 % 09/27/2021 11:23 PM [facility] Basophil % 0.3 0.0 - 2.0 % 09/27/2021 11:23 PM [facility] Neutrophils Absolute 12.68(H) 1.60 - 7.00 10? 3 /uL 09/27/2021 11:23 PM CDT [facility] Lymphocyte Absolute 1.24 1.10 - 3.90 10? 3 /uL 09/27/2021 11:23 PM CDT [facility] Monocytes Absolute 0.77 0.26 - 1.07 10? 3 /uL 09/27/2021 11:23 PM CDT [facility] Eosinophils Absolute 0.07 0.00 - 0.47 10? 3 /uL 09/27/2021 11:23 PM CDT [facility] Basophils Absolute 0.04 0.00 - 0.08 10? 3 /uL 09/27/2021 11:23 PM CDT [facility] Immature Granulocytes % 0.7 0.0 - 1.0 % 09/27/2021 11:23 PM CDT [facility] Immature Granulocytes Absolute 0.10 09/27/2021 11:23 PM CDT [facility] Blood BLOOD SPECIMEN / Unknown Venipuncture / Unknown 09/27/2021 10:55 PM CDT 09/27/2021 11:06 PM CDT Darrell Gomez MD LAB - HEMATOLOGY ORD ERABLES [address] [address], [facility] [phone] * PHOSPHORUS BLOOD (09/27/2021 10:55 PM CDT) Phosphorus 3.9 2.8 - 5.1 mg/dL 09/27/2021 11:36 PM CDT [facility] Blood BLOOD SPECIMEN / Unknown Venipuncture / Unknown 09/27/2021 10:55 PM CDT 09/27/2021 11:05 PM CDT Dar Kilpatrick MD LAB - CHEMISTRY OR DERABLES [address] [address], [facility] [phone] * MAGNESIUM BLOOD (09/27/2021 10:55 PM CDT) Magnesium 1.7 1.6 - 2.6 mg/dL 09/27/2021 11:36 PM [facility] Blood BLOOD SPECIMEN / Unknown Venipuncture / Unknown 09/27/2021 10:55 PM CDT 09/27/2021 11:05 PM CDT Dar Kilpatrick MD LAB - CHEMISTRY OR DERABLES Performing Organization Address [facility]/ZIP Co de Phone Number [facility] [address] [place] [phone], [facility] [phone] * (ABNORMAL) BASIC METABOLIC PANEL (CALCIUM TOTAL) (09/27/2021 10:55 PM CDT) BUN 12 7 - 26 mg/dL 09/27/2021 11:36 PM [facility] Creatinine 1.56(H) 0.71 - 1.16 mg/dL 09/27/2021 11:36 PM [facility] Sodium 139 136 - 145 mmol/L 09/27/2021 11:36 PM [facility] Potassium 5.0(H) 3.5 - 4.5 mmol/L 09/27/2021 11:36 PM [facility] Chloride 113(H) 98 - 107 mmol/L 09/27/2021 11:36 PM [facility] CO2 21(L) 22 - 29 mmol/L 09/27/2021 11:36 PM [facility] Glucose 112 70 - 115 mg/dL 09/27/2021 11:36 PM [facility] Calcium 8.0(L) 8.4 - 10.2 mg/dL 09/27/2021 11:36 PM [facility] Anion Gap 10 8 - 18 09/27/2021 11:36 PM [facility] BUN/Creatinine Ratio 8 7 - 23 09/27/2021 11:36 PM [facility] Osmolality Calculated 289 270 - 300 mOsm/kg 09/27/2021 11:36 PM [facility] eGFR by CKD-EPI 58(L) >=90 mL/min/1.7 3 m2 09/27/2021 11:36 PM [facility] Blood BLOOD SPECIMEN / Unknown Venipuncture / Unknown 09/27/2021 10:55 PM CDT 09/27/2021 11:05 PM T Dar Kilpatrick MD LAB - CHEMISTRY OR DERABLES [facility] [address] [place] [address], [facility] [phone] * (ABNORMAL) BLOOD GASES ART + COOX PANEL (09/27/2021 10:55 PM CDT) pH Arterial 7.28(L) 7.35 - 7.45 pH 09/27/2021 11:13 PM [facility] pO2 Arterial 331(H) 80 - 100 mmHg 09/27/2021 11:13 PM [facility] pCO2 Arterial 44 35 - 45 mmHg 11:13 PM [facility] HCO3 Arterial 21 20 - 30 mmol/l 09/27/2021 11:13 PM [facility] BE Arterial -5.8(L) -2.0 - 2.0 mmol/L 09/27/2021 11:13 PM [facility] Oxyhemoglobin Arterial 96.7 % 09/27/2021 11:13 PM [facility] Dexoyhemoglobin (HHB) % 0.3 % 09/27/2021 11:13 PM [facility] Methemoglobin <0.8 0.0 - 2.0 % 09/27/2021 11:13 PM [facility] Carboxyhemoglobin 2.5(H) 0.0 - 2.0 % 2021 11:13 PM [facility] O2 Content Arterial 15.2 Interpret within clinical context mg/dL 09/27/2021 11:13 PM [facility] Hemoglobin by COOX 10.5(L) 12.0 - 15.6 g/dL 09/27/2021 11:13 PM [facility] O2 Saturation Arterial 100 90 - 100 % 09/27/2021 11:13 PM [facility] FI O2 Arterial 100.0 % 09/27/2021 11:13 PM CDT [facility] Blood, arterial ARTERIAL BLOOD SPECIMEN / Unknown Arterial Puncture / Unknown 09/27/2021 10:55 PM CDT 09/27/2021 11:04 PM CDT Narrative [facility] - 09/27/2021 11:13 PM CDT Carboxyhemoglobin Normal Concentration: Non-smokers: 0-2%; Smokers: 0-9%; Toxic: >20% Dar Kilpatrick MD LAB - BLOOD GASES ORDERABLES [facility] [address] [place] [address], [facility] [phone] * 4 Units (09/27/2021 10:23 PM CDT) Unit Description LR Whole BLood [facility] Unit ABO O [facility] Unit POS [facility] Product [facility] [id number] [facility] Unit Donor # [id number] [facility] Unit Status transfused [facility] Product Code [id number] [facility] Blood Type Barcode 5100 [facility] Expiration Date [facility] Unit Description LR Whole BLood [facility] Unit ABO O [facility] Unit POS [facility] Product Number [id number] [facility] Unit Donor # [id number] [facility] Unit Status transfused [facility] Product [facility] [id number] [facility] Blood Type Barcode 5100 [facility] Expiration Date [facility] Unit Description LR Whole BLood [facility] BLOOD [facility] LAB Unit ABO O [facility]OD [facility] Unit POS [facility]OD [facility] Product Number [id number] [facility] B LOOD BANK LAB Unit Donor # [id number] [facility] Unit Status transfused [facility] BLO OD BANK LAB Product Code [id number] [facility] BLO OD BANK LAB Blood Type Barcode 5100 [facility] Expiration Date [facility] Unit Description LR Whole BLood [facility] BLOOD [facility] LAB Unit ABO O [facility]OD [facility] Unit Rh POS [facility] BLOOD [facility] Product Number [id number] [facility] B LOOD BANK LAB Unit Donor # [id number] [facility]OD [facility] Unit Status transfused [facility] BLO OD BANK LAB Product Code [id number] [facility] BLO OD BANK LAB Blood Type Barcode 5100 [facility]OD [facility] LAB Expiration Date S BLOOD BANK LAB Blood Bank BLOOD SPECIMEN / Unknown 09/27/2021 9:39 PM CDT Darrell Gomez MD LAB - BLOOD BANK ORD ERABLES [facility]LOOD [facility] LAB [address] [place] [address], [facility] [phone] * CT LUMBAR SPINE WO CONTRAST - [...] right hemopneumothorax). Dictated by Brett Biswas MD (financial institution president) IDr. KEVIN M.D. have personally reviewed and [...] right hemopneumothorax). Dictated by Brett Biswas MD (financial institution president) I, Dr. KEVIN ABEBE M.D. have personally [...] right hemopneumothorax). Dictated by Brett Biswas MD (financial institution president) I, Dr. KEVIN ABEBE M.D. have personally [...] right hemopneumothorax). Dictated by Brett Biswas MD (financial institution president) I, Dr. KEVIN ABEBE M.D. have personally [...] verification. Report drafted by Jamel Washington (resident) IDr. Sangeeta M.D. have personally reviewed and interpreted this [...] verification. Report drafted by Jamel Washington (resident) IDr. Sangeeta M.D. have personally reviewed and interpretedthis examination/study. [...] right hemopneumothorax). Dictated by Brett Biswas MD (financial institution president) I, Dr. KEVIN ABEBE M.D. have personally [...] right hemopneumothorax). Dictated by Brett Biswas MD (financial institution president) I, Dr. KEVIN ABEBE M.D. have personally [...] right hemopneumothorax). Dictated by Brett Biswas MD (financial institution president) I, Dr. KEVIN ABEBE M.D. have personally [...] right hemopneumothorax). Dictated by Brett Biswas MD (financial institution president) I, Dr. KEVIN ABEBE M.D. have personally [...] right hemopneumothorax). Dictated by Brett Biswas MD (financial institution president) I, Dr. KEVIN ABEBE M.D. have personally [...] right hemopneumothorax). Dictated by Brett Biswas MD (financial institution president) Dr. KEVIN Connor M.D. have personally reviewed [...] - 09/27/2021 9:44 PM CDT Raman Piedra, ? 09/27/2021 ??9:45 PM Intubation Date/Time: 09/27/2021 9:44 PM Performed by: Raman Piedra DO Authorized by: Darrell Gomez MD Consent: ??Consent obtained: ??Verbal ??Consent given by: ??Patient Frohna protocol: ??Patient identity confirmed: ??Arm band and [...] 176(H) <150 mg/dL 09/27/2021 10:31 PM CDT [facility] Comment: ATP III Classification of Triglycerides: ?<150 mg/dL: ??Normal ? 150 - 199 mg/dL: ??Borderline High ? 200 - 400 mg/dL: ??High ?>500 mg/dL: ??Very High Blood BLOOD SPECIMEN / Unknown Venipuncture / Unknown 09/27/2021 9:41 PM CDT 09/27/2021 10:18 PM CDT Dar Kilpatrick MD LAB - CHEMISTRY OR DERABLES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
--- OUTSIDE RECORDS SUMMARY | 2024-03-26 05:39 | XMS_ITS | Encounter Summary ---
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 MD LAB - CHEMISTRY OR DERABLES Performing Organization Address City/[facility]/ZIP Co de Phone Number [facility] [address] [place] [address], [facility] [phone] * MAGNESIUM BLOOD (10/01/2021 11:33 PM CDT) Pathologist [facility] Magnesium 2.2 1.6 - 2.6 mg/dL 10/02/2021 12:25 AM T [facility] Blood BLOOD SPECIMEN / Unknown Venipuncture / Unknown 10/01/2021 11:33 PM CDT 10/01/2021 11:59 PM CDT Dar Kilpatrick MD LAB - CHEMISTRY OR DERABLES Performing Organization Address City/[facility]/ZIP Co de Phone Number [address] [address], [place] [phone] * (ABNORMAL) BLOOD GASES ART + COOX PANEL (10/01/2021 11:33 PM CDT) Pathologist [facility] pH Arterial 7.51(H) 7.35 - 7.45 pH 10/02/2021 12:20 AM T [facility] pO2 Arterial 173(H) 80 - 100 mmHg 10/02/2021 12:20 AM T [facility] pCO2 Arterial 38 35 - 45 mmHg 12:20 AM T [facility] HCO3 Arterial 30 20 - 30 mmol/l 10/02/2021 12:20 AM T [facility] BE Arterial 6.8(H) -2.0 - 2.0 mmol/L 10/02/2021 12:20 AM [facility] Oxyhemoglobin Arterial 97.3 % 10/02/2021 12:20 AM [facility] Dexoyhemoglobin (HHB) % 0.9 % 10/02/2021 12:20 AM [facility] Methemoglobin <0.8 0.0 - 2.0 % 10/02/2021 12:20 AM [facility] Carboxyhemoglobin 1.5 0.0 - 2.0 % 2021 12:20 AM [facility] O2 Content Arterial 11.2 Interpret within clinical context mg/dL 10/02/2021 12:20 AM [facility] Hemoglobin by COOX 7.9(L) 12.0 - 17.6 g/dL 10/02/2021 12:20 AM [facility] O2 Saturation Arterial 99 90 - 100 % 10/02/2021 12:20 AM [facility] FI O2 Arterial 40.0 % 10/02/2021 12:20 AM [facility] Blood, arterial ARTERIAL BLOOD SPECIMEN / Unknown Arterial Puncture / Unknown 10/01/2021 11:33 PM T 10/01/2021 11:59 PM [facility] - 10/02/2021 12:20 AM [facility] Carboxyhemoglobin Normal Concentration: Non-smokers: 0-2%; Smokers: 0-9%; Toxic: >20% Dar Kilpatrick MD LAB - BLOOD GASES ORDERABLES [facility] [address] [place] [phone], [facility] [phone] * (ABNORMAL) BASIC METABOLIC PANEL (CALCIUM TOTAL) (10/01/2021 11:33 PM [facility]) BUN 20 7 - 26 mg/dL 10/02/2021 12:25 AM [facility] Creatinine 1.43(H) 0.71 - 1.16 mg/dL 10/02/2021 12:25 AM [facility] Sodium 138 136 - 145 mmol/L 10/02/2021 12:25 AM [facility] Potassium 3.7 3.5 - 4.5 mmol/L 10/02/2021 12:25 AM [facility] Chloride 99 98 - 107 mmol/L 10/02/2021 12:25 AM [facility] CO2 30(H) 22 - 29 mmol/L 10/02/2021 12:25 AM [facility] Glucose 116(H) 70 - 115 mg/dL 10/02/2021 12:25 AM [facility] Calcium 8.6 8.4 - 10.2 mg/dL 10/02/2021 12:25 AM [facility] Anion Gap 13 8 - 18 10/02/2021 12:25 AM [facility] BUN/Creatinine Ratio 14 7 - 23 10/02/2021 12:25 AM [facility] Osmolality Calculated 290 270 - 300 mOsm/kg 10/02/2021 12:25 AM [facility] eGFR by CKD-EPI 64(L) >=90 mL/min/1.7 3 m2 10/02/2021 12:25 AM [facility] Blood BLOOD SPECIMEN / Unknown Venipuncture / Unknown 10/01/2021 11:33 PM CDT 10/01/2021 11:59 PM CDT Dar Kilpatrick MD LAB - CHEMISTRY OR DERABLES Performing Organization Address [facility] Co de Phone Number [facility] [address] [place] [phone], [facility] [phone] * XR CHEST 1VW PORTABLE (10/01/2021 12:31 [...] is intact. Dictated by Donald Ramos MD (residential support specialist). Dr. CHIP Connor M.D. have personally reviewed [...] is intact. Dictated by Donald Ramos MD (residential support specialist). Dr. CHIP Connor M.D. have personally reviewed andinterpreted this examination/study. This report was electronically signed by CHIP HUNT M.D. on 10/01/2021 2:41 PM . Dar Kilpatrick MD DIAGNOSTIC IMAGING ORDERABLES * (ABNORMAL) CBC W/O DIFFERENTIAL (10/01/2021 5:50 AM CDT) WBC 8.5 3.5 - 10.5 10? 3 /uL 10/01/2021 6:21 AM [facility] RBC 2.63(L) 4.30 - 5.70 10? 6 /uL 10/01/2021 6:21 AM [facility] Hemoglobin 7.8(L) 12.0 - 17.6 g/dL 10/01/2021 6:21 AM [facility] Hematocrit 22.9(L) 35.2 - 51.7 % 10/01/2021 6:21 AM [facility] MCV 87.1 80.7 - 98.3 fL 10/01/2021 6:21 AM [facility] MCH 29.7 26.7 - 34.0 pg 10/01/2021 6:21 AM [facility] MCHC 34.1 30.8 - 35.9 g/dL 10/01/2021 6:21 AM [facility] Platelet Count 111(L) 150 - 400 10? 3 /uL 10/01/2021 6:21 AM [facility] RDW-SD 54.5(H) 36.0 - 50.0 fL 10/01/2021 6:21 AM [facility] RDW-CV 17.1(H) 11.2 - 14.8 % 10/01/2021 6:21 AM [facility] MPV 10.9 9.4 - 12.9 fL 10/01/2021 6:21 AM [facility] nRBC Absolute 0.04(H) 0 10? 3 /uL 10/01/2021 6:21 AM [facility] nRBC Auto 0.5(H) 0 /100 WBC 10/01/2021 6:21 AM [facility] Blood BLOOD SPECIMEN / Unknown Venipuncture / Unknown 10/01/2021 5:50 AM CDT 10/01/2021 6:10 AM [facility] Dar Kilpatrick MD LAB - HEMATOLOGY O RDERABLES [facility] [address] [place] [phone], [facility] [phone] * (ABNORMAL) CALCIUM IONIZED WHOLE BLOOD (10/01/2021 5:09 AM CDT) Calcium Ionized 1.18 mmol/L 10/01/2021 5:21 AM CDT [facility] pH 7.50(H) 7.35 - 7.45 pH 10/01/2021 5:21 AM CDT [facility] Ionized Calcium pH Adjusted 1.23 1.19 - 1.34 mmol/L 10/01/2021 5:21 AM CDT [facility] Blood BLOOD SPECIMEN / Unknown Venipuncture / Unknown 10/01/2021 5:09 AM CDT 10/01/2021 5:13 AM CDT Dar Kilpatrick MD LAB - CHEMISTRY OR DERABLES [facility] [address] [place] [address], [facility] [phone] * XR CHEST 1VW PORTABLE (10/01/2021 4:54 [...] Report dictated by Elmer Gomez MD, PhD (residential support specialist). I, Dr. CHIP HUNT M.D. have personally [...] Report dictated by Elmer Gomez MD, PhD (residential support specialist). I, Dr. CHIP HUNT M.D. have personally reviewed andinterpreted this examination/study. This report was electronically signed by CHIP HUNT M.D. on 10/01/2021 3:31 PM . Dar Kilpatrick MD DIAGNOSTIC IMAGING ORDERABLES * PHOSPHORUS BLOOD (09/30/2021 11:35 PM CDT) Phosphorus 3.0 2.8 - 5.1 mg/dL 10/01/2021 12:10 AM CDT [facility] Blood BLOOD SPECIMEN / Unknown Venipuncture / Unknown 09/30/2021 11:35 PM CDT 09/30/2021 11:44 PM CDT Dar Kilpatrick MD LAB - CHEMISTRY OR DERABLES Performing Organization Address City/[facility]/ZIP Co de Phone Number [address] [address], [facility] [phone] * MAGNESIUM BLOOD (09/30/2021 11:35 PM CDT) Magnesium 2.1 1.6 - 2.6 mg/dL 10/01/2021 12:10 AM CDT [facility] Blood BLOOD SPECIMEN / Unknown Venipuncture / Unknown 09/30/2021 11:35 PM CDT 09/30/2021 11:44 PM CDT Dar Kilpatrick MD LAB - CHEMISTRY OR DERABLES [address] [address], [facility] [phone] * (ABNORMAL) BLOOD GASES ART + COOX PANEL (09/30/2021 11:35 PM CDT) pH Arterial 7.51(H) 7.35 - 7.45 pH 09/30/2021 11:59 PM CDT [facility] pO2 Arterial 152(H) 80 - 100 mmHg 09/30/2021 11:59 PM CDT [facility] pCO2 Arterial 45 35 - 45 mmHg 11:59 PM [facility] HCO3 Arterial 36(H) 20 - 30 mmol/l 09/30/2021 11:59 PM [facility] BE Arterial 11.7(H) -2.0 - 2.0 mmol/L 09/30/2021 11:59 PM [facility] Oxyhemoglobin Arterial 97.1 % 09/30/2021 11:59 PM [facility] Dexoyhemoglobin (HHB) % 0.5 % 09/30/2021 11:59 PM [facility] Methemoglobin <0.8 0.0 - 2.0 % 09/30/2021 11:59 PM [facility] Carboxyhemoglobin 1.7 0.0 - 2.0 % 2021 11:59 PM [facility] O2 Content Arterial 11.0 Interpret within clinical context mg/dL 09/30/2021 11:59 PM [facility] Hemoglobin by COOX 7.8(L) 12.0 - 17.6 g/dL 09/30/2021 11:59 PM [facility] O2 Saturation Arterial 100 90 - 100 % 09/30/2021 11:59 PM [facility] FI O2 Arterial 40.0 % 09/30/2021 11:59 PM [facility] Blood, arterial ARTERIAL BLOOD SPECIMEN / Unknown Arterial Puncture / Unknown 09/30/2021 11:35 PM CDT 09/30/2021 11:53 PM [facility] - 09/30/2021 11:59 PM [facility] Carboxyhemoglobin Normal Concentration: Non-smokers: 0-2%; Smokers: 0-9%; Toxic: >20% Dar Kilpatrick MD LAB - BLOOD GASES ORDERABLES [facility] [address] [place] [phone], [facility] [phone] * (ABNORMAL) BASIC METABOLIC PANEL (CALCIUM TOTAL) (09/30/2021 11:35 PM CDT) BUN 15 7 - 26 mg/dL 10/01/2021 12:10 AM [facility] Creatinine 1.54(H) 0.71 - 1.16 mg/dL 10/01/2021 12:10 AM [facility] Sodium 139 136 - 145 mmol/L 10/01/2021 12:10 AM [facility] Potassium 3.6 3.5 - 4.5 mmol/L 10/01/2021 12:10 AM [facility] Chloride 98 98 - 107 mmol/L 10/01/2021 12:10 AM [facility] CO2 32(H) 22 - 29 mmol/L 10/01/2021 12:10 AM [facility] Glucose 120(H) 70 - 115 mg/dL 10/01/2021 12:10 AM [facility] Calcium 8.1(L) 8.4 - 10.2 mg/dL 10/01/2021 12:10 AM [facility] Anion Gap 13 8 - 18 10/01/2021 12:10 AM [facility] BUN/Creatinine Ratio 10 7 - 23 10/01/2021 12:10 AM [facility] Osmolality Calculated 290 270 - 300 mOsm/kg 10/01/2021 12:10 AM [facility] eGFR by CKD-EPI 59(L) >=90 mL/min/1.7 3 m2 10/01/2021 12:10 AM [facility] Blood BLOOD SPECIMEN / Unknown Venipuncture / Unknown 09/30/2021 11:35 PM CDT 09/30/2021 11:44 PM T Dar Kilpatrick MD LAB - CHEMISTRY OR DERABLES [facility] [address] [place] [phone], [facility] [phone] * (ABNORMAL) CBC W/O DIFFERENTIAL (09/30/2021 11:28 PM CDT) WBC 8.8 3.5 - 10.5 10? 3 /uL 10/01/2021 12:01 AM [facility] RBC 2.64(L) 4.30 - 5.70 10? 6 /uL 10/01/2021 12:01 AM [facility] Hemoglobin 7.8(L) 12.0 - 17.6 g/dL 10/01/2021 12:01 AM [facility] Hematocrit 22.9(L) 35.2 - 51.7 % 10/01/2021 12:01 AM [facility] MCV 86.7 80.7 - 98.3 fL 10/01/2021 12:01 AM [facility] MCH 29.5 26.7 - 34.0 pg 10/01/2021 12:01 AM [facility] MCHC 34.1 30.8 - 35.9 g/dL 10/01/2021 12:01 AM [facility] Platelet Count 102(L) 150 - 400 10? 3 /uL 10/01/2021 12:01 AM [facility] RDW-SD 54.4(H) 36.0 - 50.0 fL 10/01/2021 12:01 AM [facility] RDW-CV 17.2(H) 11.2 - 14.8 % 10/01/2021 12:01 AM [facility] MPV 11.0 9.4 - 12.9 fL 10/01/2021 12:01 AM [facility] nRBC Absolute 0.02(H) 0 10? 3 /uL 10/01/2021 12:01 AM [facility] nRBC Auto 0.2(H) 0 /100 WBC 10/01/2021 12:01 AM [facility] Blood BLOOD SPECIMEN / Unknown Venipuncture / Unknown 09/30/2021 11:28 PM CDT 09/30/2021 11:44 PM CDT Dar Kilpatrick MD LAB - HEMATOLOGY O RDERABLES [facility] [address] [place] [address], [facility] [phone] * (ABNORMAL) CALCIUM IONIZED WHOLE BLOOD (09/30/2021 11:28 PM CDT) Pathologist [facility] Calcium Ionized 1.11 mmol/L 09/30/2021 11:53 PM T [facility] pH 7.49(H) 7.35 - 7.45 pH 09/30/2021 11:53 PM [facility] Ionized Calcium pH Adjusted 1.15(L) 1.19 - 1.34 mmol/L 09/30/2021 11:53 PM [facility] Blood BLOOD SPECIMEN / Unknown Venipuncture / Unknown 09/30/2021 11:28 PM CDT 09/30/2021 11:40 PM CDT Dar Kilpatrick MD LAB - CHEMISTRY OR DERABLES [facility] [address] [place] [address], [facility] [phone] * (ABNORMAL) BASIC METABOLIC PANEL (CALCIUM TOTAL) (09/30/2021 6:50 PM CDT) [facility] BUN 13 7 - 26 mg/dL 09/30/2021 7:28 PM [facility] Creatinine 1.58(H) 0.71 - 1.16 mg/dL 09/30/2021 7:28 PM [facility] Sodium 139 136 - 145 mmol/L 09/30/2021 7:28 PM [facility] Potassium 3.7 3.5 - 4.5 mmol/L 09/30/2021 7:28 PM [facility] Chloride 97(L) 98 - 107 mmol/L 09/30/2021 7:28 PM [facility] CO2 30(H) 22 - 29 mmol/L 09/30/2021 7:28 PM [facility] Glucose 107 70 - 115 mg/dL 09/30/2021 7:28 PM [facility] Calcium 7.8(L) 8.4 - 10.2 mg/dL 09/30/2021 7:28 PM [facility] Anion Gap 16 8 - 18 09/30/2021 7:28 PM [facility] BUN/Creatinine Ratio 8 7 - 23 09/30/2021 7:28 PM [facility] Osmolality Calculated 289 270 - 300 mOsm/kg 09/30/2021 7:28 PM [facility] eGFR by CKD-EPI 57(L) >=90 mL/min/1.7 3 m2 09/30/2021 7:28 PM [facility] Blood BLOOD SPECIMEN / Unknown Venipuncture / Unknown 09/30/2021 6:50 PM CDT 09/30/2021 7:03 PM CDT Dar Kilpatrick MD LAB - CHEMISTRY OR DERABLES [facility] [address] [place] [address], [facility] [phone] * (ABNORMAL) BLOOD GASES ART + COOX PANEL (09/30/2021 6:50 PM T) pH Arterial 7.47(H) 7.35 - 7.45 pH 09/30/2021 7:09 PM [facility] pO2 Arterial 73(L) 80 - 100 mmHg 09/30/2021 7:09 PM [facility] pCO2 Arterial 48(H) 35 - 45 mmHg 7:09 PM [facility] HCO3 Arterial 35(H) 20 - 30 mmol/l 09/30/2021 7:09 PM [facility] BE Arterial 10.1(H) -2.0 - 2.0 mmol/L 09/30/2021 7:09 PM [facility] Oxyhemoglobin Arterial 94.4 % 09/30/2021 7:09 PM [facility] Dexoyhemoglobin (HHB) % 2.6 % 09/30/2021 7:09 PM [facility] Methemoglobin 0.9 0.0 - 2.0 % 09/30/2021 7:09 PM [facility] Carboxyhemoglobin 2.0 0.0 - 2.0 % 2021 7:09 PM [facility] O2 Content Arterial 11.0 Interpret within clinical context mg/dL 09/30/2021 7:09 PM CDT [facility] Hemoglobin by COOX 8.2(L) 12.0 - 17.6 g/dL 09/30/2021 7:09 PM CDT [facility] O2 Saturation Arterial 97 90 - 100 % 09/30/2021 7:09 PM CDT [facility] FI O2 Arterial 40.0 % 09/30/2021 7:09 PM CDT [facility] Blood, arterial ARTERIAL BLOOD SPECIMEN / Unknown Arterial Puncture / Unknown 09/30/2021 6:50 PM CDT 09/30/2021 7:02 PM CDT Narrative [facility] - 09/30/2021 7:09 PM CDT Carboxyhemoglobin Normal Concentration: Non-smokers: 0-2%; Smokers: 0-9%; Toxic: >20% Dar Kilpatrick MD LAB - BLOOD GASES ORDERABLES Performing Organization Address City/[facility]/ZIP Co de Phone Number [address] [address], [facility] [phone] * PHOSPHORUS BLOOD (09/30/2021 6:50 PM CDT) Phosphorus 2.9 2.8 - 5.1 mg/dL 09/30/2021 7:28 PM CDT [facility] Blood BLOOD SPECIMEN / Unknown Venipuncture / Unknown 09/30/2021 6:50 PM CDT 09/30/2021 7:03 PM CDT Dar Kilpatrick MD LAB - CHEMISTRY OR DERABLES [address] [address], [facility] [phone] * MAGNESIUM BLOOD (09/30/2021 6:50 PM CDT) Magnesium 2.1 1.6 - 2.6 mg/dL 09/30/2021 7:28 PM CDT [facility] Blood BLOOD SPECIMEN / Unknown Venipuncture / Unknown 09/30/2021 6:50 PM CDT 09/30/2021 7:03 PM CDT Dar Kilpatrick MD LAB - CHEMISTRY OR DERABLES [facility] [address] [place] [id number], [facility] [phone] * (ABNORMAL) CBC W/O DIFFERENTIAL (09/30/2021 6:50 PM CDT) WBC 7.5 3.5 - 10.5 10? 3 /uL 09/30/2021 7:40 PM CDT [facility] RBC 2.75(L) 4.30 - 5.70 10? 6 /uL 09/30/2021 7:40 PM CDT [facility] Hemoglobin 8.3(L) 12.0 - 17.6 g/dL 09/30/2021 7:40 PM T [facility] Hematocrit 23.8(L) 35.2 - 51.7 % 09/30/2021 7:40 PM CDT [facility] MCV 86.5 80.7 - 98.3 fL 09/30/2021 7:40 PM CDT [facility] MCH 30.2 26.7 - 34.0 pg 09/30/2021 7:40 PM CDT [facility] MCHC 34.9 30.8 - 35.9 g/dL 09/30/2021 7:40 PM CDT [facility] Platelet Count 86(L) 150 - 400 10? 3 /uL 09/30/2021 7:40 PM CDT [facility] RDW-SD 53.7(H) 36.0 - 50.0 fL 09/30/2021 7:40 PM CDT [facility] RDW-CV 17.0(H) 11.2 - 14.8 % 09/30/2021 7:40 PM CDT [facility] MPV 10.4 9.4 - 12.9 fL 09/30/2021 7:40 PM CDT [facility] nRBC Absolute 0.00 0 10? 3 /uL 09/30/2021 7:40 PM CDT [facility] nRBC Auto 0.0 0 /100 WBC 09/30/2021 7:40 PM CDT [facility] Blood BLOOD SPECIMEN / Unknown Venipuncture / Unknown 09/30/2021 6:50 PM CDT 09/30/2021 7:03 PM CDT Dar Kilpatrick MD LAB - HEMATOLOGY O RDERABLES Performing Organization Address [facility] Co de Phone Number [address] [address], [facility] [phone] * (ABNORMAL) CALCIUM IONIZED WHOLE BLOOD (09/30/2021 6:50 PM CDT) Calcium Ionized 1.10 mmol/L 09/30/2021 7:04 PM CDT [facility] pH 7.48(H) 7.35 - 7.45 pH 09/30/2021 7:04 PM CDT [facility] Ionized Calcium pH Adjusted 1.14(L) 1.19 - 1.34 mmol/L 09/30/2021 7:04 PM CDT [facility] Blood BLOOD SPECIMEN / Unknown Venipuncture / Unknown 09/30/2021 6:50 PM CDT 09/30/2021 7:02 PM CDT Dar Kilpatrick MD LAB - CHEMISTRY OR DERABLES Performing Organization Address [facility] Co de Phone Number [address] [address], [facility] [phone] * CT ABDOMEN PELVIS W CONTRAST (09/30/2021 [...] CDT) Dar Kilpatrick MD NURSING - BLOOD ID OD TRANSFUSION * TRANSFUSE RED BLOOD CELL LEUKOREDUCED UNIT(S), 1 Units (09/30/2021 5:21 PM CDT) Dar Kilpatrick MD NURSING - BLOOD ID OD TRANSFUSION * PREPARE (CROSSMATCH) RBC UNIT(S), 1 Units (09/30/2021 1:01 PM CDT) Unit Description AS1 LR PRBC [facility] Unit ABO O [facility] Unit Rh POS [facility] Product Number R02 [facility] Unit Donor # [id number] [facility] Unit Status transfused [facility] Product Code B4335N78 [facility] Blood Type Barcode 5100 [facility] Expiration Date S BLOOD BANK LAB Blood Bank BLOOD SPECIMEN / Unknown 09/27/2021 9:39 PM CDT Dar Kilpatrick MD LAB - BLOOD BANK O RDERABLES [facility] [address] [place] [address], [facility] [phone] * (ABNORMAL) BLOOD GASES ART + COOX PANEL (09/30/2021 11:48 AM CDT) pH Arterial 7.45 7.35 - 7.45 pH 09/30/2021 12:00 PM [facility] pO2 Arterial 86 80 - 100 mmHg 09/30/2021 12:00 PM [facility] pCO2 Arterial 53(H) 35 - 45 mmHg 12:00 PM [facility] HCO3 Arterial 37(H) 20 - 30 mmol/l 09/30/2021 12:00 PM [facility] BE Arterial 11.0(H) -2.0 - 2.0 mmol/L 09/30/2021 12:00 PM [facility] Oxyhemoglobin Arterial 94.9 % 09/30/2021 12:00 PM [facility] Dexoyhemoglobin (HHB) % 2.3 % 09/30/2021 12:00 PM [facility] Methemoglobin 0.9 0.0 - 2.0 % 09/30/2021 12:00 PM [facility] Carboxyhemoglobin 1.8 0.0 - 2.0 % 2021 12:00 PM [facility] O2 Content Arterial 16.0 Interpret within clinical context mg/dL 09/30/2021 12:00 PM T [facility] Hemoglobin by COOX 11.9(L) 12.0 - 17.6 g/dL 09/30/2021 12:00 PM [facility] O2 Saturation Arterial 98 90 - 100 % 09/30/2021 12:00 PM T [facility] FI O2 Arterial 40.0 % 09/30/2021 12:00 PM T [facility] Blood, arterial ARTERIAL BLOOD SPECIMEN / Unknown Arterial Puncture / Unknown 09/30/2021 11:48 AM CDT 09/30/2021 11:52 AM CDT Narrative [facility] - 09/30/2021 12:00 PM CDT Carboxyhemoglobin Normal Concentration: Non-smokers: 0-2%; Smokers: 0-9%; Toxic: >20% Dar Kilpatrick MD LAB - BLOOD GASES ORDERABLES Performing Organization Address City/[facility]/ZIP Co de Phone Number [address] [address], [facility] [phone] * (ABNORMAL) CALCIUM IONIZED WHOLE BLOOD (09/30/2021 11:48 AM CDT) Calcium Ionized 1.09 mmol/L 09/30/2021 11:59 AM T [facility] pH 7.48(H) 7.35 - 7.45 pH 09/30/2021 11:59 AM [facility] Ionized Calcium pH Adjusted 1.13(L) 1.19 - 1.34 mmol/L 09/30/2021 11:59 AM T [facility] Blood BLOOD SPECIMEN / Unknown Venipuncture / Unknown 09/30/2021 11:48 AM CDT 09/30/2021 11:52 AM CDT Dar Kilpatrick MD LAB - CHEMISTRY OR DERABLES [address] [address], [place] [phone] * (ABNORMAL) BASIC METABOLIC PANEL (CALCIUM TOTAL) (09/30/2021 11:48 AM CDT) Pathologist [facility] BUN 14 7 - 26 mg/dL 09/30/2021 12:24 PM [facility] Creatinine 1.55(H) 0.71 - 1.16 mg/dL 09/30/2021 12:24 PM [facility] Sodium 138 136 - 145 mmol/L 09/30/2021 12:24 PM [facility] Potassium 3.4(L) 3.5 - 4.5 mmol/L 09/30/2021 12:24 PM [facility] Chloride 97(L) 98 - 107 mmol/L 09/30/2021 12:24 PM [facility] CO2 34(H) 22 - 29 mmol/L 09/30/2021 12:24 PM [facility] Glucose 128(H) 70 - 115 mg/dL 09/30/2021 12:24 PM [facility] Calcium 8.1(L) 8.4 - 10.2 mg/dL 09/30/2021 12:24 PM [facility] Anion Gap 10 8 - 18 09/30/2021 12:24 PM [facility] BUN/Creatinine Ratio 9 7 - 23 09/30/2021 12:24 PM [facility] Osmolality Calculated 288 270 - 300 mOsm/kg 09/30/2021 12:24 PM [facility] eGFR by CKD-EPI 58(L) >=90 mL/min/1.7 3 m2 09/30/2021 12:24 PM [facility] Blood BLOOD SPECIMEN / Unknown Venipuncture / Unknown 09/30/2021 11:48 AM CDT 09/30/2021 11:53 AM CDT Dar Kilpatrick MD LAB - CHEMISTRY OR DERABLES [facility] [address] [place] [address], [facility] [phone] * (ABNORMAL) CBC W AUTO DIFFERENTIAL (09/30/2021 11:48 AM CDT) Pathologist [facility] WBC 7.9 3.5 - 10.5 10? 3 /uL 09/30/2021 12:17 PM [facility] RBC 2.28(L) 4.30 - 5.70 10? 6 /uL 09/30/2021 12:17 PM [facility] Hemoglobin 6.9(L) 12.0 - 17.6 g/dL 09/30/2021 12:17 PM [facility] Hematocrit 20.5(L) 35.2 - 51.7 % 09/30/2021 12:17 PM [facility] MCV 89.9 80.7 - 98.3 fL 09/30/2021 12:17 PM [facility] MCH 30.3 26.7 - 34.0 pg 09/30/2021 12:17 PM [facility] MCHC 33.7 30.8 - 35.9 g/dL 09/30/2021 12:17 PM [facility] Platelet Count 104(L) 150 - 400 10? 3 /uL 09/30/2021 12:17 PM [facility] RDW-SD 47.8 36.0 - 50.0 fL 09/30/2021 12:17 PM [facility] RDW-CV 14.6 11.2 - 14.8 % 09/30/2021 12:17 PM [facility] MPV 10.8 9.4 - 12.9 fL 09/30/2021 12:17 PM [facility] nRBC Absolute 0.02(H) 0 10? 3 /uL 09/30/2021 12:17 PM [facility] nRBC Auto 0.3(H) 0 /100 WBC 09/30/2021 12:17 PM [facility] Neutrophils % 83.4(H) 35.0 - 70.0 % 09/30/2021 12:17 PM [facility] Lymphocytes % 8.8(L) 20.0 - 43.0 % 09/30/2021 12:17 PM [facility] Monocytes % 6.5 5.0 - 13.0 % 09/30/2021 12:17 PM [facility] Eosinophils % 0.6 0.0 - 6.0 % 09/30/2021 12:17 PM [facility] Basophil % 0.1 0.0 - 2.0 % 09/30/2021 12:17 PM [facility] Neutrophils Absolute 6.54 1.60 - 7.00 10? 3 /uL 09/30/2021 12:17 PM [facility] Lymphocyte Absolute 0.69(L) 1.10 - 3.90 10? 3 /uL 09/30/2021 12:17 PM [facility] Monocytes Absolute 0.51 0.26 - 1.07 10? 3 /uL 09/30/2021 12:17 PM [facility] Eosinophils Absolute 0.05 0.00 - 0.47 10? 3 /uL 09/30/2021 12:17 PM [facility] Basophils Absolute 0.01 0.00 - 0.08 10? 3 /uL 09/30/2021 12:17 PM [facility] Immature Granulocytes % 0.6 0.0 - 1.0 % 09/30/2021 12:17 PM [facility] Immature Granulocytes Absolute 0.05 09/30/2021 12:17 PM [facility] Immature Platelet Fraction 4.1 1.1 - 6.2 % 09/30/2021 12:17 PM [facility] Blood BLOOD SPECIMEN / Unknown Venipuncture / Unknown 09/30/2021 11:48 AM CDT 09/30/2021 11:53 AM CDT Darrell Gomez MD LAB - HEMATOLOGY ORD ERABLES Performing Organization Address City/State/[facility] Co de Phone Number [facility] [address] [place] [address], [facility] [phone] * (ABNORMAL) GLUCOSE - POINT OF CARE (09/30/2021 11:45 AM CDT) Glucose WB/POC 147(H) 70 - 115 mg/dL 09/30/2021 11:50 AM T [facility] Specimen Type Arterial 09/30/2021 11:50 AM [facility] Blood BLOOD SPECIMEN / Unknown 09/30/2021 11:45 AM CDT 09/30/2021 11:50 AM CDT Dar Kilpatrick MD LAB - POINT OF CAR E ORDERABLES [facility] [address] [place] [address], [place] [phone] * TRANSFUSE RED BLOOD CELL LEUKOREDUCED UNIT(S) (09/30/2021 11:16 AM CDT) Dar Kilpatrick MD NURSING - BLOOD ID OD TRANSFUSION * TRANSFUSE RED BLOOD CELL LEUKOREDUCED UNIT(S), 1 Units (09/30/2021 11:16 AM CDT) Dar Kilpatrick MD NURSING - BLOOD ID OD TRANSFUSION * (ABNORMAL) GLUCOSE - POINT OF CARE (09/30/2021 8:10 AM CDT) Glucose WB/POC 136(H) 70 - 115 mg/dL 09/30/2021 8:15 AM CDT [facility] Specimen Type Arterial 09/30/2021 8:15 AM CDT [facility] Blood BLOOD SPECIMEN / Unknown 09/30/2021 8:10 AM CDT 09/30/2021 8:15 AM CDT Dar Kilpatrick MD LAB - POINT OF CAR E ORDERABLES Performing Organization Address City/[facility]/ZIP Co de Phone Number [address] [address], [facility] [phone] * PREPARE (CROSSMATCH) RBC UNIT(S), 1 Units (09/30/2021 7:22 AM CDT) Unit Description AS1 LR PRBC [facility] Unit ABO O [facility] Unit Rh POS [facility] Product Number R02 [facility] Unit Donor # [id number] [facility] Unit Status transfused [facility] Product Code [id number] [facility] Blood Type Barcode 5100 [facility] Expiration Date S BLOOD BANK LAB Blood Bank BLOOD SPECIMEN / Unknown 09/27/2021 9:39 PM CDT Dar Kilpatrick MD LAB - BLOOD BANK O RDERABLES [facility] [address] [place] [address], [facility] [phone] * (ABNORMAL) BLOOD GASES ART + COOX PANEL (09/30/2021 5:47 AM CDT) pH Arterial 7.54(H) 7.35 - 7.45 pH 09/30/2021 6:19 AM [facility] pO2 Arterial 70(L) 80 - 100 mmHg 09/30/2021 6:19 AM [facility] pCO2 Arterial 42 35 - 45 mmHg 6:19 AM [facility] HCO3 Arterial 36(H) 20 - 30 mmol/l 09/30/2021 6:19 AM [facility] BE Arterial 12.3(H) -2.0 - 2.0 mmol/L 09/30/2021 6:19 AM [facility] Oxyhemoglobin Arterial 94.5 % 09/30/2021 6:19 AM [facility] Dexoyhemoglobin (HHB) % 1.8 % 09/30/2021 6:19 AM [facility] Methemoglobin 1.7 0.0 - 2.0 % 09/30/2021 6:19 AM [facility] Carboxyhemoglobin 2.0 0.0 - 2.0 % 2021 6:19 AM [facility] O2 Content Arterial 8.9 Interpret within clinical context mg/dL 09/30/2021 6:19 AM [facility] Hemoglobin by COOX 6.6(L) 12.0 - 17.6 g/dL 09/30/2021 6:19 AM [facility] O2 Saturation Arterial 98 90 - 100 % 09/30/2021 6:19 AM [facility] FI O2 Arterial 40.0 % 09/30/2021 6:19 AM [facility] Blood, arterial ARTERIAL BLOOD SPECIMEN / Unknown Arterial Puncture / Unknown 09/30/2021 5:47 AM CDT 09/30/2021 5:51 AM CDT Narrative [facility] - 09/30/2021 6:19 AM CDT Carboxyhemoglobin Normal Concentration: Non-smokers: 0-2%; Smokers: 0-9%; Toxic: >20% Dar Kilpatrick MD LAB - BLOOD GASES ORDERABLES Performing Organization Address [facility] de Phone Number [address] [address], [facility] [phone] * (ABNORMAL) CALCIUM IONIZED WHOLE BLOOD (09/30/2021 5:47 AM CDT) Pathologist [facility] Calcium Ionized 1.21 mmol/L 09/30/2021 5:58 AM CDT [facility] pH 7.57(H) 7.35 - 7.45 pH 09/30/2021 5:58 AM CDT [facility] Ionized Calcium pH Adjusted 1.30 1.19 - 1.34 mmol/L 09/30/2021 5:58 AM CDT [facility] Blood BLOOD SPECIMEN / Unknown Venipuncture / Unknown 09/30/2021 5:47 AM CDT 09/30/2021 5:51 AM CDT Dar Kilpatrick MD LAB - CHEMISTRY OR DERABLES Performing Organization Address [facility] de Phone Number [address] [address], [facility] [phone] * (ABNORMAL) BASIC METABOLIC PANEL (CALCIUM TOTAL) (09/30/2021 5:47 AM CDT) BUN 16 7 - 26 mg/dL 09/30/2021 6:22 AM T [facility] Creatinine 1.63(H) 0.71 - 1.16 mg/dL 09/30/2021 6:22 AM T [facility] Sodium 138 136 - 145 mmol/L 09/30/2021 6:22 AM T [facility] Potassium 3.4(L) 3.5 - 4.5 mmol/L 09/30/2021 6:22 AM [facility] Chloride 97(L) 98 - 107 mmol/L 09/30/2021 6:22 AM [facility] CO2 35(H) 22 - 29 mmol/L 09/30/2021 6:22 AM [facility] Glucose 130(H) 70 - 115 mg/dL 09/30/2021 6:22 AM [facility] Calcium 8.5 8.4 - 10.2 mg/dL 09/30/2021 6:22 AM [facility] Anion Gap 9 8 - 18 09/30/2021 6:22 AM [facility] BUN/Creatinine Ratio 10 7 - 23 09/30/2021 6:22 AM [facility] Osmolality Calculated 289 270 - 300 mOsm/kg 09/30/2021 6:22 AM [facility] eGFR by CKD-EPI 55(L) >=90 mL/min/1.7 3 m2 09/30/2021 6:22 AM [facility] Blood BLOOD SPECIMEN / Unknown Venipuncture / Unknown 09/30/2021 5:47 AM CDT 09/30/2021 5:57 AM CDT Dar Kilpatrick MD LAB - CHEMISTRY OR DERABLES Performing Organization Address City/State/[facility] Co de Phone Number [facility] [address] [place] [address], [facility] [phone] * (ABNORMAL) CBC W AUTO DIFFERENTIAL (09/30/2021 5:47 AM CDT) WBC 7.0 3.5 - 10.5 10? 3 /uL 09/30/2021 6:05 AM [facility] RBC 2.01(L) 4.30 - 5.70 10? 6 /uL 09/30/2021 6:05 AM [facility] Hemoglobin 6.3(L) 12.0 - 17.6 g/dL 09/30/2021 6:05 AM [facility] Hematocrit 18.4(L) 35.2 - 51.7 % 09/30/2021 6:05 AM [facility] MCV 91.5 80.7 - 98.3 fL 09/30/2021 6:05 AM [facility] MCH 31.3 26.7 - 34.0 pg 09/30/2021 6:05 AM [facility] MCHC 34.2 30.8 - 35.9 g/dL 09/30/2021 6:05 AM [facility] Platelet Count 108(L) 150 - 400 10? 3 /uL 09/30/2021 6:05 AM [facility] RDW-SD 45.9 36.0 - 50.0 fL 09/30/2021 6:05 AM [facility] RDW-CV 13.6 11.2 - 14.8 % 09/30/2021 6:05 AM [facility] MPV 10.8 9.4 - 12.9 fL 09/30/2021 6:05 AM [facility] nRBC Absolute 0.00 0 10? 3 /uL 09/30/2021 6:05 AM [facility] nRBC Auto 0.0 0 /100 WBC 09/30/2021 6:05 AM [facility] Neutrophils % 83.0(H) 35.0 - 70.0 % 09/30/2021 6:05 AM [facility] Lymphocytes % 9.1(L) 20.0 - 43.0 % 09/30/2021 6:05 AM [facility] Monocytes % 7.0 5.0 - 13.0 % 09/30/2021 6:05 AM [facility] Eosinophils % 0.4 0.0 - 6.0 % 09/30/2021 6:05 AM [facility] Basophil % 0.1 0.0 - 2.0 % 09/30/2021 6:05 AM [facility] Neutrophils Absolute 5.84 1.60 - 7.00 10? 3 /uL 09/30/2021 6:05 AM [facility] Lymphocyte Absolute 0.64(L) 1.10 - 3.90 10? 3 /uL 09/30/2021 6:05 AM [facility] Monocytes Absolute 0.49 0.26 - 1.07 10? 3 /uL 09/30/2021 6:05 AM T [facility] Eosinophils Absolute 0.03 0.00 - 0.47 10? 3 /uL 09/30/2021 6:05 AM T [facility] Basophils Absolute 0.01 0.00 - 0.08 10? 3 /uL 09/30/2021 6:05 AM CDT [facility] Immature Granulocytes % 0.4 0.0 - 1.0 % 09/30/2021 6:05 AM T [facility] Immature Granulocytes Absolute 0.03 09/30/2021 6:05 AM [facility] Immature Platelet Fraction 4.7 1.1 - 6.2 % 09/30/2021 6:05 AM [facility] Blood BLOOD SPECIMEN / Unknown Venipuncture / Unknown 09/30/2021 5:47 AM CDT 09/30/2021 5:57 AM CDT Darrell Gomez MD LAB - HEMATOLOGY ORD ERABLES [facility] [address] [place] [address], [facility] [phone] * XR CHEST 1VW PORTABLE (09/30/2021 4:26 [...] hemithorax. Report dictated by Marek Santos MD (residential support specialist). I, Dr. AIDEN MCKEON have personally reviewed [...] hemithorax. Report dictated by Marek Santos MD (residential support specialist). I, Dr. AIDEN MCKEON have personally reviewed and interpreted this examination/study. This report was electronically signed by AIDEN MCKEON on 09/30/2021 4:07 PM . Dar Kilpatrick MD DIAGNOSTIC IMAGING ORDERABLES * (ABNORMAL) GLUCOSE - POINT OF CARE (09/30/2021 3:49 AM CDT) Glucose WB/POC 141(H) 70 - 115 mg/dL 09/30/2021 3:50 AM CDT [facility] Specimen Type Cap Fingerstick 2021 3:50 AM CDT [facility] Blood BLOOD SPECIMEN / Unknown 09/30/2021 3:49 AM CDT 09/30/2021 3:50 AM CDT Dar Kilpatrick MD LAB - POINT OF CAR E ORDERABLES [facility] [address] [place] [address] [phone] * (ABNORMAL) BLOOD GASES ART + COOX PANEL (09/30/2021 12:16 AM [facility]) pH Arterial 7.50(H) 7.35 - 7.45 pH 09/30/2021 12:33 AM [facility] pO2 Arterial 90 80 - 100 mmHg 09/30/2021 12:33 AM [facility] pCO2 Arterial 48(H) 35 - 45 mmHg 12:33 AM [facility] HCO3 Arterial 37(H) 20 - 30 mmol/l 09/30/2021 12:33 AM [facility] BE Arterial 12.9(H) -2.0 - 2.0 mmol/L 09/30/2021 12:33 AM [facility] Oxyhemoglobin Arterial 96.0 % 09/30/2021 12:33 AM [facility] Dexoyhemoglobin (HHB) % 1.8 % 09/30/2021 12:33 AM [facility] Methemoglobin <0.8 0.0 - 2.0 % 09/30/2021 12:33 AM [facility] Carboxyhemoglobin 1.4 0.0 - 2.0 % 2021 12:33 AM [facility] O2 Content Arterial 10.2 Interpret within clinical context mg/dL 09/30/2021 12:33 AM [facility] Hemoglobin by COOX 7.4(L) 12.0 - 17.6 g/dL 09/30/2021 12:33 AM [facility] O2 Saturation Arterial 98 90 - 100 % 09/30/2021 12:33 AM [facility] FI O2 Arterial 40.0 % 09/30/2021 12:33 AM [facility] Blood, arterial ARTERIAL BLOOD SPECIMEN / Unknown Arterial Puncture / Unknown 09/30/2021 12:16 AM CDT 09/30/2021 12:19 AM [facility] - 09/30/2021 12:33 AM [facility] Carboxyhemoglobin Normal Concentration: Non-smokers: 0-2%; Smokers: 0-9%; Toxic: >20% Dar Kilpatrick MD LAB - BLOOD GASES ORDERABLES Performing Organization Address [facility]/ZIP Co de Phone Number [address] [address], [facility] [phone] * (ABNORMAL) CALCIUM IONIZED WHOLE BLOOD (09/30/2021 12:16 AM CDT) Calcium Ionized 1.11 mmol/L 09/30/2021 12:24 AM [facility] pH 7.49(H) 7.35 - 7.45 pH 09/30/2021 12:24 AM [facility] Ionized Calcium pH Adjusted 1.15(L) 1.19 - 1.34 mmol/L 09/30/2021 12:24 AM [facility] Blood BLOOD SPECIMEN / Unknown Venipuncture / Unknown 09/30/2021 12:16 AM CDT 09/30/2021 12:19 AM CDT Dar Kilpatrick MD LAB - CHEMISTRY OR DERABLES Performing Organization Address [facility] Co de Phone Number [address] [address], [facility] [phone] * (ABNORMAL) BASIC METABOLIC PANEL (CALCIUM TOTAL) (09/30/2021 12:16 AM CDT) BUN 16 7 - 26 mg/dL 09/30/2021 12:46 AM [facility] Creatinine 1.72(H) 0.71 - 1.16 mg/dL 09/30/2021 12:46 AM [facility] Sodium 139 136 - 145 mmol/L 09/30/2021 12:46 AM [facility] Potassium 3.5 3.5 - 4.5 mmol/L 09/30/2021 12:46 AM [facility] Chloride 99 98 - 107 mmol/L 09/30/2021 12:46 AM [facility] CO2 33(H) 22 - 29 mmol/L 09/30/2021 12:46 AM [facility] Glucose 130(H) 70 - 115 mg/dL 09/30/2021 12:46 AM [facility] Calcium 7.9(L) 8.4 - 10.2 mg/dL 09/30/2021 12:46 AM [facility] Anion Gap 11 8 - 18 09/30/2021 12:46 AM [facility] BUN/Creatinine Ratio 9 7 - 23 09/30/2021 12:46 AM [facility] Osmolality Calculated 291 270 - 300 mOsm/kg 09/30/2021 12:46 AM [facility] eGFR by CKD-EPI 52(L) >=90 mL/min/1.7 3 m2 09/30/2021 12:46 AM [facility] Blood BLOOD SPECIMEN / Unknown Venipuncture / Unknown 09/30/2021 12:16 AM CDT 09/30/2021 12:20 AM T Dar Kilpatrick MD LAB - CHEMISTRY OR DERABLES [facility] [address] [place] [id number], [facility] [phone] * (ABNORMAL) CBC W AUTO DIFFERENTIAL (09/30/2021 12:16 AM [facility]) WBC 7.7 3.5 - 10.5 10? 3 /uL 09/30/2021 12:26 AM [facility] RBC 2.08(L) 4.30 - 5.70 10? 6 /uL 09/30/2021 12:26 AM [facility] Hemoglobin 6.5(L) 12.0 - 17.6 g/dL 09/30/2021 12:26 AM [facility] Hematocrit 19.0(L) 35.2 - 51.7 % 09/30/2021 12:26 AM [facility] MCV 91.3 80.7 - 98.3 fL 09/30/2021 12:26 AM [facility] MCH 31.3 26.7 - 34.0 pg 09/30/2021 12:26 AM [facility] MCHC 34.2 30.8 - 35.9 g/dL 09/30/2021 12:26 AM [facility] Platelet Count 102(L) 150 - 400 10? 3 /uL 09/30/2021 12:26 AM [facility] RDW-SD 46.5 36.0 - 50.0 fL 09/30/2021 12:26 AM [facility] RDW-CV 13.7 11.2 - 14.8 % 09/30/2021 12:26 AM [facility] MPV 10.8 9.4 - 12.9 fL 09/30/2021 12:26 AM [facility] nRBC Absolute 0.00 0 10? 3 /uL 09/30/2021 12:26 AM [facility] nRBC Auto 0.0 0 /100 WBC 09/30/2021 12:26 AM [facility] Neutrophils % 84.0(H) 35.0 - 70.0 % 09/30/2021 12:26 AM [facility] Lymphocytes % 7.7(L) 20.0 - 43.0 % 09/30/2021 12:26 AM [facility] Monocytes % 7.0 5.0 - 13.0 % 09/30/2021 12:26 AM [facility] Eosinophils % 0.4 0.0 - 6.0 % 09/30/2021 12:26 AM [facility] Basophil % 0.1 0.0 - 2.0 % 09/30/2021 12:26 AM [facility] Neutrophils Absolute 6.44 1.60 - 7.00 10? 3 /uL 09/30/2021 12:26 AM [facility] Lymphocyte Absolute 0.59(L) 1.10 - 3.90 10? 3 /uL 09/30/2021 12:26 AM [facility] Monocytes Absolute 0.54 0.26 - 1.07 10? 3 /uL 09/30/2021 12:26 AM [facility] Eosinophils Absolute 0.03 0.00 - 0.47 10? 3 /uL 09/30/2021 12:26 AM [facility] Basophils Absolute 0.01 0.00 - 0.08 10? 3 /uL 09/30/2021 12:26 AM CDT [facility] Immature Granulocytes % 0.8 0.0 - 1.0 % 09/30/2021 12:26 AM CDT [facility] Immature Granulocytes Absolute 0.06 09/30/2021 12:26 AM CDT [facility] Immature Platelet Fraction 4.8 1.1 - 6.2 % 09/30/2021 12:26 AM CDT [facility] Blood BLOOD SPECIMEN / Unknown Venipuncture / Unknown 09/30/2021 12:16 AM CDT 09/30/2021 12:20 AM CDT Darrell Gomez MD LAB - HEMATOLOGY ORD ERABLES [address] [address], [facility] [phone] * (ABNORMAL) PHOSPHORUS BLOOD (09/30/2021 12:16 AM CDT) Phosphorus 2.4(L) 2.8 - 5.1 mg/dL 09/30/2021 12:46 AM CDT [facility] Blood BLOOD SPECIMEN / Unknown Venipuncture / Unknown 09/30/2021 12:16 AM CDT 09/30/2021 12:20 AM CDT Dar Kilpatrick MD LAB - CHEMISTRY OR DERABLES [address] [address], [facility] [phone] * MAGNESIUM BLOOD (09/30/2021 12:16 AM CDT) Magnesium 1.9 1.6 - 2.6 mg/dL 09/30/2021 12:46 AM CDT [facility] Blood BLOOD SPECIMEN / Unknown Venipuncture / Unknown 09/30/2021 12:16 AM CDT 09/30/2021 12:20 AM CDT Dar Kilpatrick MD LAB - CHEMISTRY OR DERABLES [facility] [address] [place] [address], [place] [phone] * (ABNORMAL) GLUCOSE - POINT OF CARE (09/30/2021 12:12 AM CDT) Glucose WB/POC 136(H) 70 - 115 mg/dL 09/30/2021 12:15 AM CDT [facility] Specimen Type Arterial 09/30/2021 12:15 AM CDT [facility] Blood BLOOD SPECIMEN / Unknown 09/30/2021 12:12 AM CDT 09/30/2021 12:15 AM CDT Dar Kilpatrick MD LAB - POINT OF CAR E ORDERABLES [facility] [address] [place] [address], [place] [phone] * (ABNORMAL) GLUCOSE - POINT OF CARE (09/29/2021 8:18 PM CDT) Glucose WB/POC 122(H) 70 - 115 mg/dL 09/29/2021 8:19 PM CDT [facility] Specimen Type Cap Fingerstick 2021 8:19 PM CDT [facility] Blood BLOOD SPECIMEN / Unknown 09/29/2021 8:18 PM CDT 09/29/2021 8:19 PM CDT Dar Kilpatrick MD LAB - POINT OF CAR E ORDERABLES [facility] [address] [place] [address], [place] [phone] * (ABNORMAL) BLOOD GASES ART + COOX PANEL (09/29/2021 6:36 PM CDT) pH Arterial 7.48(H) 7.35 - 7.45 pH 09/29/2021 6:43 PM CDT [facility] pO2 Arterial 105(H) 80 - 100 mmHg 09/29/2021 6:43 PM [facility] pCO2 Arterial 45 35 - 45 mmHg 6:43 PM [facility] HCO3 Arterial 34(H) 20 - 30 mmol/l 09/29/2021 6:43 PM [facility] BE Arterial 9.1(H) -2.0 - 2.0 mmol/L 09/29/2021 6:43 PM [facility] Oxyhemoglobin Arterial 97.2 % 09/29/2021 6:43 PM [facility] Dexoyhemoglobin (HHB) % 0.6 % 09/29/2021 6:43 PM [facility] Methemoglobin <0.8 0.0 - 2.0 % 09/29/2021 6:43 PM [facility] Carboxyhemoglobin 1.4 0.0 - 2.0 % 2021 6:43 PM [facility] O2 Content Arterial 10.3 Interpret within clinical context mg/dL 09/29/2021 6:43 PM [facility] Hemoglobin by COOX 7.4(L) 12.0 - 17.6 g/dL 09/29/2021 6:43 PM [facility] O2 Saturation Arterial 99 90 - 100 % 09/29/2021 6:43 PM [facility] FI O2 Arterial 40.0 % 09/29/2021 6:43 PM [facility] Blood, arterial ARTERIAL BLOOD SPECIMEN / Unknown Arterial Puncture / Unknown 09/29/2021 6:36 PM CDT 09/29/2021 6:41 PM [facility] - 09/29/2021 6:43 PM T Carboxyhemoglobin Normal Concentration: Non-smokers: 0-2%; Smokers: 0-9%; Toxic: >20% Dar Kilpatrick MD LAB - BLOOD GASES ORDERABLES [facility] [address] [place] [address], [facility] [phone] * (ABNORMAL) CALCIUM IONIZED WHOLE BLOOD (09/29/2021 6:36 PM CDT) Pathologist [facility] Calcium Ionized 1.08 mmol/L 09/29/2021 6:43 PM T [facility] pH 7.48(H) 7.35 - 7.45 pH 09/29/2021 6:43 PM [facility] Ionized Calcium pH Adjusted 1.12(L) 1.19 - 1.34 mmol/L 09/29/2021 6:43 PM [facility] Blood BLOOD SPECIMEN / Unknown Venipuncture / Unknown 09/29/2021 6:36 PM CDT 09/29/2021 6:40 PM CDT Dar Kilpatrick MD LAB - CHEMISTRY OR DERABLES [facility] [address] [place] [address], [facility] [phone] * (ABNORMAL) BASIC METABOLIC PANEL (CALCIUM TOTAL) (09/29/2021 6:36 PM CDT) [facility] BUN 18 7 - 26 mg/dL 09/29/2021 7:06 PM [facility] Creatinine 1.80(H) 0.71 - 1.16 mg/dL 09/29/2021 7:06 PM [facility] Sodium 141 136 - 145 mmol/L 09/29/2021 7:06 PM [facility] Potassium 3.5 3.5 - 4.5 mmol/L 09/29/2021 7:06 PM [facility] Chloride 102 98 - 107 mmol/L 09/29/2021 7:06 PM [facility] CO2 32(H) 22 - 29 mmol/L 09/29/2021 7:06 PM [facility] Glucose 134(H) 70 - 115 mg/dL 09/29/2021 7:06 PM [facility] Calcium 8.0(L) 8.4 - 10.2 mg/dL 09/29/2021 7:06 PM [facility] Anion Gap 11 8 - 18 09/29/2021 7:06 PM [facility] BUN/Creatinine Ratio 10 7 - 23 09/29/2021 7:06 PM [facility] Osmolality Calculated 296 270 - 300 mOsm/kg 09/29/2021 7:06 PM [facility] eGFR by CKD-EPI 49(L) >=90 mL/min/1.7 3 m2 09/29/2021 7:06 PM [facility] Blood BLOOD SPECIMEN / Unknown Venipuncture / Unknown 09/29/2021 6:36 PM CDT 09/29/2021 6:40 PM CDT Dar Kilpatrick MD LAB - CHEMISTRY OR DERABLES [facility] [address] [place] [address], [facility] [phone] * (ABNORMAL) CBC W AUTO DIFFERENTIAL (09/29/2021 6:36 PM CDT) WBC 9.3 3.5 - 10.5 10? 3 /uL 09/29/2021 6:46 PM [facility] RBC 2.26(L) 4.30 - 5.70 10? 6 /uL 09/29/2021 6:46 PM [facility] Hemoglobin 7.1(L) 12.0 - 17.6 g/dL 09/29/2021 6:46 PM [facility] Hematocrit 20.4(L) 35.2 - 51.7 % 09/29/2021 6:46 PM [facility] MCV 90.3 80.7 - 98.3 fL 09/29/2021 6:46 PM [facility] MCH 31.4 26.7 - 34.0 pg 09/29/2021 6:46 PM [facility] MCHC 34.8 30.8 - 35.9 g/dL 09/29/2021 6:46 PM [facility] Platelet Count 110(L) 150 - 400 10? 3 /uL 09/29/2021 6:46 PM [facility] RDW-SD 45.9 36.0 - 50.0 fL 09/29/2021 6:46 PM [facility] RDW-CV 13.9 11.2 - 14.8 % 09/29/2021 6:46 PM [facility] MPV 10.6 9.4 - 12.9 fL 09/29/2021 6:46 PM [facility] nRBC Absolute 0.00 0 10? 3 /uL 09/29/2021 6:46 PM [facility] nRBC Auto 0.0 0 /100 WBC 09/29/2021 6:46 PM [facility] Neutrophils % 82.9(H) 35.0 - 70.0 % 09/29/2021 6:46 PM [facility] Lymphocytes % 8.3(L) 20.0 - 43.0 % 09/29/2021 6:46 PM [facility] Monocytes % 7.9 5.0 - 13.0 % 09/29/2021 6:46 PM [facility] Eosinophils % 0.3 0.0 - 6.0 % 09/29/2021 6:46 PM [facility] Basophil % 0.1 0.0 - 2.0 % 09/29/2021 6:46 PM [facility] Neutrophils Absolute 7.70(H) 1.60 - 7.00 10? 3 /uL 09/29/2021 6:46 PM [facility] Lymphocyte Absolute 0.77(L) 1.10 - 3.90 10? 3 /uL 09/29/2021 6:46 PM [facility] Monocytes Absolute 0.73 0.26 - 1.07 10? 3 /uL 09/29/2021 6:46 PM [facility] Eosinophils Absolute 0.03 0.00 - 0.47 10? 3 /uL 09/29/2021 6:46 PM [facility] Basophils Absolute 0.01 0.00 - 0.08 10? 3 /uL 09/29/2021 6:46 PM [facility] Immature Granulocytes % 0.5 0.0 - 1.0 % 09/29/2021 6:46 PM [facility] Immature Granulocytes Absolute 0.05 09/29/2021 6:46 PM [facility] Immature Platelet Fraction 4.8 1.1 - 6.2 % 09/29/2021 6:46 PM CDT [facility] Blood BLOOD SPECIMEN / Unknown Venipuncture / Unknown 09/29/2021 6:36 PM CDT 09/29/2021 6:41 PM CDT Darrell Gomez MD LAB - HEMATOLOGY ORD ERABLES Performing Organization Address City/[facility]/ZIP Co de Phone Number [address] [address], [place] [phone] * (ABNORMAL) GLUCOSE - POINT OF CARE (09/29/2021 4:12 PM CDT) Glucose WB/POC 138(H) 70 - 115 mg/dL 09/29/2021 4:17 PM CDT [facility] Specimen Type Cap Fingerstick 2021 4:17 PM CDT [facility] Blood BLOOD SPECIMEN / Unknown 09/29/2021 4:12 PM CDT 09/29/2021 4:17 PM CDT Dar Kilpatrick MD LAB - POINT OF CAR E ORDERABLES Performing Organization Address City/[facility]/ZIP Co de Phone Number [address] [address], [place] [phone] * CT CHEST WO CONTRAST (09/29/2021 2:30 [...] 7.35 - 7.45 pH 09/29/2021 12:43 PM [facility] pO2 Arterial 151(H) 80 - 100 mmHg 09/29/2021 12:43 PM [facility] pCO2 Arterial 40 35 - 45 mmHg 12:43 PM [facility] HCO3 Arterial 31(H) 20 - 30 mmol/l 09/29/2021 12:43 PM [facility] BE Arterial 6.6(H) -2.0 - 2.0 mmol/L 09/29/2021 12:43 PM [facility] Oxyhemoglobin Arterial 98.6 % 09/29/2021 12:43 PM [facility] Dexoyhemoglobin (HHB) % 0.5 % 09/29/2021 12:43 PM [facility] Methemoglobin <0.8 0.0 - 2.0 % 09/29/2021 12:43 PM [facility] Carboxyhemoglobin 0.9 0.0 - 2.0 % 2021 12:43 PM [facility] O2 Content Arterial 10.3 Interpret within clinical context mg/dL 09/29/2021 12:43 PM [facility] Hemoglobin by COOX 7.2(L) 12.0 - 17.6 g/dL 09/29/2021 12:43 PM [facility] O2 Saturation Arterial 100 90 - 100 % 09/29/2021 12:43 PM [facility] FI O2 Arterial 40.0 % 09/29/2021 12:43 PM [facility] Blood, arterial ARTERIAL BLOOD SPECIMEN / Unknown Arterial Puncture / Unknown 09/29/2021 12:36 PM T 09/29/2021 12:39 PM [facility] - 09/29/2021 12:43 PM [facility] Carboxyhemoglobin Normal Concentration: Non-smokers: 0-2%; Smokers: 0-9%; Toxic: >20% Dar Kilpatrick MD LAB - BLOOD GASES ORDERABLES [address] [address], [facility] [phone] * (ABNORMAL) CALCIUM IONIZED WHOLE BLOOD (09/29/2021 12:36 PM CDT) [facility] Calcium Ionized 1.13 mmol/L 09/29/2021 12:43 PM CDT [facility] pH 7.48(H) 7.35 - 7.45 pH 09/29/2021 12:43 PM [facility] Ionized Calcium pH Adjusted 1.17(L) 1.19 - 1.34 mmol/L 09/29/2021 12:43 PM [facility] Blood BLOOD SPECIMEN / Unknown Venipuncture / Unknown 09/29/2021 12:36 PM CDT 09/29/2021 12:39 PM CDT Dar Kilpatrick MD LAB - CHEMISTRY OR DERABLES Performing Organization Address [facility] Co de Phone Number [address] [address], [facility] [phone] * (ABNORMAL) BASIC METABOLIC PANEL (CALCIUM TOTAL) (09/29/2021 12:36 PM CDT) [facility] BUN 19 7 - 26 mg/dL 09/29/2021 1:07 PM [facility] Creatinine 1.89(H) 0.71 - 1.16 mg/dL 09/29/2021 1:07 PM [facility] Sodium 141 136 - 145 mmol/L 09/29/2021 1:07 PM [facility] Potassium 3.8 3.5 - 4.5 mmol/L 09/29/2021 1:07 PM [facility] Chloride 104 98 - 107 mmol/L 09/29/2021 1:07 PM [facility] CO2 29 22 - 29 mmol/L 09/29/2021 1:07 PM [facility] Glucose 121(H) 70 - 115 mg/dL 09/29/2021 1:07 PM [facility] Calcium 8.0(L) 8.4 - 10.2 mg/dL 09/29/2021 1:07 PM [facility] Anion Gap 12 8 - 18 09/29/2021 1:07 PM [facility] BUN/Creatinine Ratio 10 7 - 23 09/29/2021 1:07 PM [facility] Osmolality Calculated 296 270 - 300 mOsm/kg 09/29/2021 1:07 PM [facility] eGFR by CKD-EPI 46(L) >=90 mL/min/1.7 3 m2 09/29/2021 1:07 PM [facility] Blood BLOOD SPECIMEN / Unknown Venipuncture / Unknown 09/29/2021 12:36 PM CDT 09/29/2021 12:43 PM CDT Dar Kilpatrick MD LAB - CHEMISTRY OR DERABLES [facility] [address] [place] [address], [facility] [phone] * (ABNORMAL) CBC W AUTO DIFFERENTIAL (09/29/2021 12:36 PM CDT) WBC 9.5 3.5 - 10.5 10? 3 /uL 09/29/2021 12:48 PM [facility] RBC 2.30(L) 4.30 - 5.70 10? 6 /uL 09/29/2021 12:48 PM [facility] Hemoglobin 7.2(L) 12.0 - 17.6 g/dL 09/29/2021 12:48 PM [facility] Hematocrit 20.9(L) 35.2 - 51.7 % 09/29/2021 12:48 PM [facility] MCV 90.9 80.7 - 98.3 fL 09/29/2021 12:48 PM [facility] MCH 31.3 26.7 - 34.0 pg 09/29/2021 12:48 PM [facility] MCHC 34.4 30.8 - 35.9 g/dL 09/29/2021 12:48 PM [facility] Platelet Count 106(L) 150 - 400 10? 3 /uL 09/29/2021 12:48 PM [facility] RDW-SD 46.7 36.0 - 50.0 fL 09/29/2021 12:48 PM [facility] RDW-CV 14.2 11.2 - 14.8 % 09/29/2021 12:48 PM [facility] MPV 11.1 9.4 - 12.9 fL 09/29/2021 12:48 PM [facility] nRBC Absolute 0.00 0 10? 3 /uL 09/29/2021 12:48 PM [facility] nRBC Auto 0.0 0 /100 WBC 09/29/2021 12:48 PM [facility] Neutrophils % 80.7(H) 35.0 - 70.0 % 09/29/2021 12:48 PM [facility] Lymphocytes % 9.2(L) 20.0 - 43.0 % 09/29/2021 12:48 PM [facility] Monocytes % 9.0 5.0 - 13.0 % 09/29/2021 12:48 PM [facility] Eosinophils % 0.2 0.0 - 6.0 % 09/29/2021 12:48 PM [facility] Basophil % 0.2 0.0 - 2.0 % 09/29/2021 12:48 PM [facility] Neutrophils Absolute 7.63(H) 1.60 - 7.00 10? 3 /uL 09/29/2021 12:48 PM [facility] Lymphocyte Absolute 0.87(L) 1.10 - 3.90 10? 3 /uL 09/29/2021 12:48 PM [facility] Monocytes Absolute 0.85 0.26 - 1.07 10? 3 /uL 09/29/2021 12:48 PM [facility] Eosinophils Absolute 0.02 0.00 - 0.47 10? 3 /uL 09/29/2021 12:48 PM [facility] Basophils Absolute 0.02 0.00 - 0.08 10? 3 /uL 09/29/2021 12:48 PM [facility] Immature Granulocytes % 0.7 0.0 - 1.0 % 09/29/2021 12:48 PM CDT [facility] Immature Granulocytes Absolute 0.07 09/29/2021 12:48 PM CDT [facility] Immature Platelet Fraction 5.0 1.1 - 6.2 % 09/29/2021 12:48 PM CDT [facility] Blood BLOOD SPECIMEN / Unknown Venipuncture / Unknown 09/29/2021 12:36 PM CDT 09/29/2021 12:43 PM CDT Darrell Gomez MD LAB - HEMATOLOGY ORD ERABLES Performing Organization Address City/[facility]/ZIP Co de Phone Number [address] [address], [place] [phone] * (ABNORMAL) GLUCOSE - POINT OF CARE (09/29/2021 12:23 PM CDT) Glucose WB/POC 130(H) 70 - 115 mg/dL 09/29/2021 12:24 PM CDT [facility] Specimen Type Cap Fingerstick 2021 12:24 PM CDT [facility] Blood BLOOD SPECIMEN / Unknown 09/29/2021 12:23 PM CDT 09/29/2021 12:24 PM CDT Dar Kilpatrick MD LAB - POINT OF CAR E ORDERABLES Performing Organization Address [facility]/ZIP Co de Phone Number [address] [address], [place] [phone] * (ABNORMAL) GLUCOSE - POINT OF CARE (09/29/2021 8:45 AM CDT) Glucose WB/POC 189(H) 70 - 115 mg/dL 09/29/2021 8:50 AM CDT [facility] Specimen Type Arterial 09/29/2021 8:50 AM CDT [facility] Blood BLOOD SPECIMEN / Unknown 09/29/2021 8:45 AM CDT 09/29/2021 8:50 AM CDT Dar Kilpatrick MD LAB - POINT OF CAR E ORDERABLES [facility] [address] [place] [address], [facility] [phone] * (ABNORMAL) BLOOD GASES ART + COOX PANEL (09/29/2021 6:03 AM [facility]) pH Arterial 7.47(H) 7.35 - 7.45 pH 09/29/2021 6:10 AM [facility] pO2 Arterial 133(H) 80 - 100 mmHg 09/29/2021 6:10 AM [facility] pCO2 Arterial 38 35 - 45 mmHg 6:10 AM [facility] HCO3 Arterial 28 20 - 30 mmol/l 09/29/2021 6:10 AM [facility] BE Arterial 3.8(H) -2.0 - 2.0 mmol/L 09/29/2021 6:10 AM [facility] Oxyhemoglobin Arterial 97.1 % 09/29/2021 6:10 AM [facility] Dexoyhemoglobin (HHB) % 1.6 % 09/29/2021 6:10 AM [facility] Methemoglobin <0.8 0.0 - 2.0 % 09/29/2021 6:10 AM [facility] Carboxyhemoglobin 0.8 0.0 - 2.0 % 2021 6:10 AM [facility] O2 Content Arterial 11.6 Interpret within clinical context mg/dL 09/29/2021 6:10 AM [facility] Hemoglobin by COOX 8.3(L) 12.0 - 17.6 g/dL 09/29/2021 6:10 AM [facility] O2 Saturation Arterial 98 90 - 100 % 09/29/2021 6:10 AM [facility] FI O2 Arterial 40.0 % 09/29/2021 6:10 AM [facility] Blood, arterial ARTERIAL BLOOD SPECIMEN / Unknown Arterial Puncture / Unknown 09/29/2021 6:03 AM CDT 09/29/2021 6:06 AM [facility] - 09/29/2021 6:10 AM CDT Carboxyhemoglobin Normal Concentration: Non-smokers: 0-2%; Smokers: 0-9%; Toxic: >20% Dar Kilpatrick MD LAB - BLOOD GASES ORDERABLES Performing Organization Address [facility] Co de Phone Number [address] [address], [facility] [phone] * (ABNORMAL) CALCIUM IONIZED WHOLE BLOOD (09/29/2021 6:03 AM CDT) Pathologist [facility] Calcium Ionized 1.19 mmol/L 09/29/2021 6:11 AM CDT [facility] pH 7.46(H) 7.35 - 7.45 pH 09/29/2021 6:11 AM T [facility] Ionized Calcium pH Adjusted 1.22 1.19 - 1.34 mmol/L 09/29/2021 6:11 AM T [facility] Blood BLOOD SPECIMEN / Unknown Venipuncture / Unknown 09/29/2021 6:03 AM CDT 09/29/2021 6:06 AM CDT Dar Kilpatrick MD LAB - CHEMISTRY OR DERABLES Performing Organization Address [facility] Co de Phone Number [address] [address], [facility] [phone] * (ABNORMAL) BASIC METABOLIC PANEL (CALCIUM TOTAL) (09/29/2021 6:03 AM CDT) Pathologist [facility] BUN 20 7 - 26 mg/dL 09/29/2021 6:53 AM T [facility] Creatinine 1.97(H) 0.71 - 1.16 mg/dL 09/29/2021 6:53 AM T [facility] Sodium 140 136 - 145 mmol/L 09/29/2021 6:53 AM T [facility] Potassium 3.9 3.5 - 4.5 mmol/L 09/29/2021 6:53 AM T [facility] Chloride 107 98 - 107 mmol/L 09/29/2021 6:53 AM [facility] CO2 27 22 - 29 mmol/L 09/29/2021 6:53 AM [facility] Glucose 136(H) 70 - 115 mg/dL 09/29/2021 6:53 AM [facility] Calcium 8.2(L) 8.4 - 10.2 mg/dL 09/29/2021 6:53 AM [facility] Anion Gap 10 8 - 18 09/29/2021 6:53 AM [facility] BUN/Creatinine Ratio 10 7 - 23 09/29/2021 6:53 AM [facility] Osmolality Calculated 295 270 - 300 mOsm/kg 09/29/2021 6:53 AM [facility] eGFR by CKD-EPI 44(L) >=90 mL/min/1.7 3 m2 09/29/2021 6:53 AM [facility] Blood BLOOD SPECIMEN / Unknown Venipuncture / Unknown 09/29/2021 6:03 AM CDT 09/29/2021 6:07 AM T Dar Kilpatrick MD LAB - CHEMISTRY OR DERABLES Performing Organization Address [facility]/State/ZIP Co de Phone Number [facility] [address] [place] [phone], [facility] [phone] * (ABNORMAL) CBC W AUTO DIFFERENTIAL (09/29/2021 6:03 AM T) WBC 10.4 3.5 - 10.5 10? 3 /uL 09/29/2021 6:18 AM [facility] RBC 2.48(L) 4.30 - 5.70 10? 6 /uL 09/29/2021 6:18 AM [facility] Hemoglobin 7.7(L) 12.0 - 17.6 g/dL 09/29/2021 6:18 AM [facility] Hematocrit 22.5(L) 35.2 - 51.7 % 09/29/2021 6:18 AM [facility] MCV 90.7 80.7 - 98.3 fL 09/29/2021 6:18 AM [facility] MCH 31.0 26.7 - 34.0 pg 09/29/2021 6:18 AM [facility] MCHC 34.2 30.8 - 35.9 g/dL 09/29/2021 6:18 AM [facility] Platelet Count 106(L) 150 - 400 10? 3 /uL 09/29/2021 6:18 AM [facility] RDW-SD 46.5 36.0 - 50.0 fL 09/29/2021 6:18 AM [facility] RDW-CV 14.0 11.2 - 14.8 % 09/29/2021 6:18 AM [facility] MPV 10.6 9.4 - 12.9 fL 09/29/2021 6:18 AM [facility] nRBC Absolute 0.00 0 10? 3 /uL 09/29/2021 6:18 AM [facility] nRBC Auto 0.0 0 /100 WBC 09/29/2021 6:18 AM [facility] Neutrophils % 80.3(H) 35.0 - 70.0 % 09/29/2021 6:18 AM [facility] Lymphocytes % 10.4(L) 20.0 - 43.0 % 09/29/2021 6:18 AM [facility] Monocytes % 8.3 5.0 - 13.0 % 09/29/2021 6:18 AM [facility] Eosinophils % 0.3 0.0 - 6.0 % 09/29/2021 6:18 AM [facility] Basophil % 0.2 0.0 - 2.0 % 09/29/2021 6:18 AM [facility] Neutrophils Absolute 8.32(H) 1.60 - 7.00 10? 3 /uL 09/29/2021 6:18 AM [facility] Lymphocyte Absolute 1.08(L) 1.10 - 3.90 10? 3 /uL 09/29/2021 6:18 AM [facility] Monocytes Absolute 0.86 0.26 - 1.07 10? 3 /uL 09/29/2021 6:18 AM [facility] Eosinophils Absolute 0.03 0.00 - 0.47 10? 3 /uL 09/29/2021 6:18 AM CDT [facility] Basophils Absolute 0.02 0.00 - 0.08 10? 3 /uL 09/29/2021 6:18 AM CDT [facility] Immature Granulocytes % 0.5 0.0 - 1.0 % 09/29/2021 6:18 AM CDT [facility] Immature Granulocytes Absolute 0.05 09/29/2021 6:18 AM CDT [facility] Blood BLOOD SPECIMEN / Unknown Venipuncture / Unknown 09/29/2021 6:03 AM CDT 09/29/2021 6:07 AM CDT Darrell Gomez MD LAB - HEMATOLOGY ORD ERABLES [facility] [address] [place] [address], [facility] [phone] * XR CHEST 1VW PORTABLE (09/29/2021 4:27 [...] Report dictated by Elmer Gomez MD, PhD (residential support specialist). I, Dr. MICAELA MCCULLOUGH have personally reviewed [...] Report dictated by Elmer Gomez MD, PhD (residential support specialist). I, Dr. MICAELA MCCULLOUGH have personally reviewed and interpreted this examination/study. This report was electronically signed by MICAELA MCCULLOUGH on 1:18 AM . Dar Kilpatrick MD DIAGNOSTIC IMAGING ORDERABLES * (ABNORMAL) GLUCOSE - POINT OF CARE (09/29/2021 3:59 AM CDT) Glucose WB/POC 136(H) 70 - 115 mg/dL 09/29/2021 4:04 AM CDT [facility] Specimen Type Arterial 09/29/2021 4:04 AM CDT [facility] Blood BLOOD SPECIMEN / Unknown 09/29/2021 3:59 AM CDT 09/29/2021 4:04 AM CDT Dar Kilpatrick MD LAB - POINT OF CAR E ORDERABLES [facility] [address] [place] [id number], [place] [phone] * PHOSPHORUS BLOOD (09/29/2021 12:12 AM CDT) Phosphorus 3.6 2.8 - 5.1 mg/dL 09/29/2021 12:49 AM CDT [facility] Blood BLOOD SPECIMEN / Unknown Venipuncture / Unknown 09/29/2021 12:12 AM CDT 09/29/2021 12:18 AM CDT Dar Kilpatrick MD LAB - CHEMISTRY OR DERABLES Performing Organization Address City/[facility]/ZIP Co de Phone Number [address] [address], [facility] [phone] * MAGNESIUM BLOOD (09/29/2021 12:12 AM CDT) Magnesium 1.7 1.6 - 2.6 mg/dL 09/29/2021 12:49 AM CDT [facility] Blood BLOOD SPECIMEN / Unknown Venipuncture / Unknown 09/29/2021 12:12 AM CDT 09/29/2021 12:18 AM CDT Dar Kilpatrick MD LAB - CHEMISTRY OR DERABLES Performing Organization Address [facility] de Phone Number [address] [address], [facility] [phone] * (ABNORMAL) BLOOD GASES ART + COOX PANEL (09/29/2021 12:12 AM CDT) pH Arterial 7.44 7.35 - 7.45 pH 09/29/2021 12:19 AM T [facility] pO2 Arterial 131(H) 80 - 100 mmHg 09/29/2021 12:19 AM T [facility] pCO2 Arterial 37 35 - 45 mmHg 12:19 AM [facility] HCO3 Arterial 25 20 - 30 mmol/l 09/29/2021 12:19 AM T [facility] BE Arterial 1.0 -2.0 - 2.0 mmol/L 09/29/2021 12:19 AM [facility] Oxyhemoglobin Arterial 97.4 % 09/29/2021 12:19 AM [facility] Dexoyhemoglobin (HHB) % 1.4 % 09/29/2021 12:19 AM [facility] Methemoglobin <0.8 0.0 - 2.0 % 09/29/2021 12:19 AM [facility] Carboxyhemoglobin 0.9 0.0 - 2.0 % 2021 12:19 AM [facility] O2 Content Arterial 12.2 Interpret within clinical context mg/dL 09/29/2021 12:19 AM [facility] Hemoglobin by COOX 8.7(L) 12.0 - 17.6 g/dL 09/29/2021 12:19 AM [facility] O2 Saturation Arterial 99 90 - 100 % 09/29/2021 12:19 AM [facility] FI O2 Arterial 40.0 % 09/29/2021 12:19 AM [facility] Blood, arterial ARTERIAL BLOOD SPECIMEN / Unknown Arterial Puncture / Unknown 09/29/2021 12:12 AM [facility] 09/29/2021 12:17 AM [facility] - 09/29/2021 12:19 AM [facility] Carboxyhemoglobin Normal Concentration: Non-smokers: 0-2%; Smokers: 0-9%; Toxic: >20% Dar Kilpatrick MD LAB - BLOOD GASES ORDERABLES Performing Organization Address City/State/[facility] Co de Phone Number [address] [address], [facility] [phone] * (ABNORMAL) CALCIUM IONIZED WHOLE BLOOD (09/29/2021 12:12 AM [facility]) Calcium Ionized 1.15 mmol/L 09/29/2021 12:21 AM [facility] pH 7.43 7.35 - 7.45 pH 09/29/2021 12:21 AM [facility] Ionized Calcium pH Adjusted 1.16(L) 1.19 - 1.34 mmol/L 09/29/2021 12:21 AM [facility] Blood BLOOD SPECIMEN / Unknown Venipuncture / Unknown 09/29/2021 12:12 AM CDT 09/29/2021 12:17 AM CDT Dar Kilpatrick MD LAB - CHEMISTRY OR DERABLES [facility] [address] [place] [address], [facility] [phone] * (ABNORMAL) BASIC METABOLIC PANEL (CALCIUM TOTAL) (09/29/2021 12:12 AM CDT) BUN 18 7 - 26 mg/dL 09/29/2021 12:49 AM [facility] Creatinine 2.01(H) 0.71 - 1.16 mg/dL 09/29/2021 12:49 AM [facility] Sodium 141 136 - 145 mmol/L 09/29/2021 12:49 AM [facility] Potassium 4.1 3.5 - 4.5 mmol/L 09/29/2021 12:49 AM [facility] Chloride 109(H) 98 - 107 mmol/L 09/29/2021 12:49 AM [facility] CO2 24 22 - 29 mmol/L 09/29/2021 12:49 AM [facility] Glucose 140(H) 70 - 115 mg/dL 09/29/2021 12:49 AM [facility] Calcium 8.0(L) 8.4 - 10.2 mg/dL 09/29/2021 12:49 AM [facility] Anion Gap 12 8 - 18 09/29/2021 12:49 AM [facility] BUN/Creatinine Ratio 9 7 - 23 09/29/2021 12:49 AM [facility] Osmolality Calculated 296 270 - 300 mOsm/kg 09/29/2021 12:49 AM [facility] eGFR by CKD-EPI 43(L) >=90 mL/min/1.7 3 m2 09/29/2021 12:49 AM [facility] Blood BLOOD SPECIMEN / Unknown Venipuncture / Unknown 09/29/2021 12:12 AM CDT 09/29/2021 12:18 AM CDT Dar Kilpatrick MD LAB - CHEMISTRY OR DERABLES [facility] [address] [place] [address], [facility] [phone] * (ABNORMAL) CBC W AUTO DIFFERENTIAL (09/29/2021 12:12 AM CDT) WBC 11.2(H) 3.5 - 10.5 10? 3 /uL 09/29/2021 12:32 AM [facility] RBC 2.63(L) 4.30 - 5.70 10? 6 /uL 09/29/2021 12:32 AM [facility] Hemoglobin 8.2(L) 12.0 - 17.6 g/dL 09/29/2021 12:32 AM [facility] Hematocrit 23.9(L) 35.2 - 51.7 % 09/29/2021 12:32 AM [facility] MCV 90.9 80.7 - 98.3 fL 09/29/2021 12:32 AM [facility] MCH 31.2 26.7 - 34.0 pg 09/29/2021 12:32 AM [facility] MCHC 34.3 30.8 - 35.9 g/dL 09/29/2021 12:32 AM [facility] Platelet Count 126(L) 150 - 400 10? 3 /uL 09/29/2021 12:32 AM [facility] RDW-SD 46.6 36.0 - 50.0 fL 09/29/2021 12:32 AM [facility] RDW-CV 14.0 11.2 - 14.8 % 09/29/2021 12:32 AM [facility] MPV 10.7 9.4 - 12.9 fL 09/29/2021 12:32 AM [facility] nRBC Absolute 0.00 0 10? 3 /uL 09/29/2021 12:32 AM [facility] nRBC Auto 0.0 0 /100 WBC 09/29/2021 12:32 AM [facility] Neutrophils % 82.3(H) 35.0 - 70.0 % 09/29/2021 12:32 AM [facility] Lymphocytes % 8.9(L) 20.0 - 43.0 % 09/29/2021 12:32 AM [facility] Monocytes % 8.2 5.0 - 13.0 % 09/29/2021 12:32 AM [facility] Eosinophils % 0.1 0.0 - 6.0 % 09/29/2021 12:32 AM [facility] Basophil % 0.1 0.0 - 2.0 % 09/29/2021 12:32 AM [facility] Neutrophils Absolute 9.20(H) 1.60 - 7.00 10? 3 /uL 09/29/2021 12:32 AM [facility] Lymphocyte Absolute 1.00(L) 1.10 - 3.90 10? 3 /uL 09/29/2021 12:32 AM [facility] Monocytes Absolute 0.92 0.26 - 1.07 10? 3 /uL 09/29/2021 12:32 AM [facility] Eosinophils Absolute 0.01 0.00 - 0.47 10? 3 /uL 09/29/2021 12:32 AM [facility] Basophils Absolute 0.01 0.00 - 0.08 10? 3 /uL 09/29/2021 12:32 AM [facility] Immature Granulocytes % 0.4 0.0 - 1.0 % 09/29/2021 12:32 AM [facility] Immature Granulocytes Absolute 0.05 09/29/2021 12:32 AM [facility] Immature Platelet Fraction 4.5 1.1 - 6.2 % 09/29/2021 12:32 AM [facility] Blood BLOOD SPECIMEN / Unknown Venipuncture / Unknown 09/29/2021 12:12 AM CDT 09/29/2021 12:18 AM [facility] Darrell Gomez MD LAB - HEMATOLOGY ORD ERABLES [facility] [address] [place] [address], [place] [phone] * (ABNORMAL) GLUCOSE - POINT OF CARE (09/29/2021 12:11 AM CDT) Glucose WB/POC 142(H) 70 - 115 mg/dL 09/29/2021 12:12 AM CDT [facility] Specimen Type Arterial 09/29/2021 12:12 AM CDT [facility] Blood BLOOD SPECIMEN / Unknown 09/29/2021 12:11 AM CDT 09/29/2021 12:12 AM CDT Dar Kilpatrick MD LAB - POINT OF CAR E ORDERABLES [address] [address], [place] [phone] * (ABNORMAL) GLUCOSE - POINT OF CARE (09/28/2021 8:03 PM CDT) Glucose WB/POC 136(H) 70 - 115 mg/dL 09/28/2021 8:05 PM CDT [facility] Specimen Type Cap Fingerstick 2021 8:05 PM CDT [facility] Blood BLOOD SPECIMEN / Unknown 09/28/2021 8:03 PM CDT 09/28/2021 8:05 PM CDT Dar Kilpatrick MD LAB - POINT OF CAR E ORDERABLES [address] [address], [place] [phone] * (ABNORMAL) BLOOD GASES ART + COOX PANEL (09/28/2021 5:49 PM CDT) pH Arterial 7.39 7.35 - 7.45 pH 09/28/2021 5:58 PM CDT [facility] pO2 Arterial 129(H) 80 - 100 mmHg 09/28/2021 5:58 PM CDT [facility] pCO2 Arterial 34(L) 35 - 45 mmHg 5:58 PM CDT [facility] HCO3 Arterial 21 20 - 30 mmol/l 09/28/2021 5:58 PM T [facility] BE Arterial -3.8(L) -2.0 - 2.0 mmol/L 09/28/2021 5:58 PM [facility] Oxyhemoglobin Arterial 98.3 % 09/28/2021 5:58 PM [facility] Dexoyhemoglobin (HHB) % 0.3 % 09/28/2021 5:58 PM [facility] Methemoglobin <0.8 0.0 - 2.0 % 09/28/2021 5:58 PM [facility] Carboxyhemoglobin 1.1 0.0 - 2.0 % 2021 5:58 PM [facility] O2 Content Arterial 13.2 Interpret within clinical context mg/dL 09/28/2021 5:58 PM [facility] Hemoglobin by COOX 9.4(L) 12.0 - 17.6 g/dL 09/28/2021 5:58 PM [facility] O2 Saturation Arterial 100 90 - 100 % 09/28/2021 5:58 PM [facility] FI O2 Arterial 40.0 % 09/28/2021 5:58 PM [facility] Blood, arterial ARTERIAL BLOOD SPECIMEN / Unknown Arterial Puncture / Unknown 09/28/2021 5:49 PM CDT 09/28/2021 5:53 PM CDT Narrative [facility] - 09/28/2021 5:58 PM CDT Carboxyhemoglobin Normal Concentration: Non-smokers: 0-2%; Smokers: 0-9%; Toxic: >20% Dar Kilpatrick MD LAB - BLOOD GASES ORDERABLES [facility] [address] [place] [address], [facility] [phone] * CALCIUM IONIZED WHOLE BLOOD (09/28/2021 5:49 PM CDT) Calcium Ionized 1.21 mmol/L 09/28/2021 5:59 PM [facility] pH 7.37 7.35 - 7.45 pH 09/28/2021 5:59 PM [facility] Ionized Calcium pH Adjusted 1.20 1.19 - 1.34 mmol/L 09/28/2021 5:59 PM [facility] Blood BLOOD SPECIMEN / Unknown Venipuncture / Unknown 09/28/2021 5:49 PM CDT 09/28/2021 5:53 PM CDT Dar Kilpatrick MD LAB - CHEMISTRY OR DERABLES [facility] [address] [place] [address], [facility] [phone] * (ABNORMAL) BASIC METABOLIC PANEL (CALCIUM TOTAL) (09/28/2021 5:49 PM CDT) BUN 17 7 - 26 mg/dL 09/28/2021 6:22 PM [facility] Creatinine 1.96(H) 0.71 - 1.16 mg/dL 09/28/2021 6:22 PM [facility] Sodium 141 136 - 145 mmol/L 09/28/2021 6:22 PM [facility] Potassium 4.8(H) 3.5 - 4.5 mmol/L 09/28/2021 6:22 PM [facility] Chloride 113(H) 98 - 107 mmol/L 09/28/2021 6:22 PM [facility] CO2 20(L) 22 - 29 mmol/L 09/28/2021 6:22 PM [facility] Glucose 125(H) 70 - 115 mg/dL 09/28/2021 6:22 PM [facility] Calcium 8.3(L) 8.4 - 10.2 mg/dL 09/28/2021 6:22 PM [facility] Anion Gap 13 8 - 18 09/28/2021 6:22 PM [facility] BUN/Creatinine Ratio 9 7 - 23 09/28/2021 6:22 PM [facility] Osmolality Calculated 295 270 - 300 mOsm/kg 09/28/2021 6:22 PM [facility] eGFR by CKD-EPI 44(L) >=90 mL/min/1.7 3 m2 09/28/2021 6:22 PM [facility] Blood BLOOD SPECIMEN / Unknown Venipuncture / Unknown 09/28/2021 5:49 PM CDT 09/28/2021 5:54 PM CDT Dar Kilpatrick MD LAB - CHEMISTRY OR DERABLES Performing Organization Address [facility] Co de Phone Number [facility] [address] [place] [address], [facility] [phone] * (ABNORMAL) CBC W AUTO DIFFERENTIAL (09/28/2021 5:49 PM CDT) WBC 12.6(H) 3.5 - 10.5 10? 3 /uL 09/28/2021 5:58 PM [facility] RBC 2.93(L) 4.30 - 5.70 10? 6 /uL 09/28/2021 5:58 PM [facility] Hemoglobin 9.2(L) 12.0 - 17.6 g/dL 09/28/2021 5:58 PM [facility] Hematocrit 26.7(L) 35.2 - 51.7 % 09/28/2021 5:58 PM [facility] MCV 91.1 80.7 - 98.3 fL 09/28/2021 5:58 PM [facility] MCH 31.4 26.7 - 34.0 pg 09/28/2021 5:58 PM [facility] MCHC 34.5 30.8 - 35.9 g/dL 09/28/2021 5:58 PM [facility] Platelet Count 144(L) 150 - 400 10? 3 /uL 09/28/2021 5:58 PM [facility] RDW-SD 47.6 36.0 - 50.0 fL 09/28/2021 5:58 PM [facility] RDW-CV 14.1 11.2 - 14.8 % 09/28/2021 5:58 PM [facility] MPV 10.3 9.4 - 12.9 fL 09/28/2021 5:58 PM [facility] nRBC Absolute 0.00 0 10? 3 /uL 09/28/2021 5:58 PM [facility] nRBC Auto 0.0 0 /100 WBC 09/28/2021 5:58 PM [facility] Neutrophils % 84.9(H) 35.0 - 70.0 % 09/28/2021 5:58 PM [facility] Lymphocytes % 7.3(L) 20.0 - 43.0 % 09/28/2021 5:58 PM [facility] Monocytes % 7.1 5.0 - 13.0 % 09/28/2021 5:58 PM [facility] Eosinophils % 0.0 0.0 - 6.0 % 09/28/2021 5:58 PM [facility] Basophil % 0.1 0.0 - 2.0 % 09/28/2021 5:58 PM [facility] Neutrophils Absolute 10.72(H) 1.60 - 7.00 10? 3 /uL 09/28/2021 5:58 PM [facility] Lymphocyte Absolute 0.92(L) 1.10 - 3.90 10? 3 /uL 09/28/2021 5:58 PM [facility] Monocytes Absolute 0.89 0.26 - 1.07 10? 3 /uL 09/28/2021 5:58 PM [facility] Eosinophils Absolute 0.00 0.00 - 0.47 10? 3 /uL 09/28/2021 5:58 PM [facility] Basophils Absolute 0.01 0.00 - 0.08 10? 3 /uL 09/28/2021 5:58 PM [facility] Immature Granulocytes % 0.6 0.0 - 1.0 % 09/28/2021 5:58 PM [facility] Immature Granulocytes Absolute 0.08 09/28/2021 5:58 PM [facility] Immature Platelet Fraction 4.1 1.1 - 6.2 % 09/28/2021 5:58 PM [facility] Blood BLOOD SPECIMEN / Unknown Venipuncture / Unknown 09/28/2021 5:49 PM CDT 09/28/2021 5:54 PM CDT Darrell Gomez MD LAB - HEMATOLOGY ORD ERABLES [facility] [address] [place] [address], [facility] [phone] * (ABNORMAL) GLUCOSE - POINT OF CARE (09/28/2021 4:05 PM CDT) Pathologist [facility] Glucose WB/POC 129(H) 70 - 115 mg/dL 09/28/2021 4:10 PM CDT [facility] Specimen Type Arterial 09/28/2021 4:10 PM CDT [facility] Blood BLOOD SPECIMEN / Unknown 09/28/2021 4:05 PM CDT 09/28/2021 4:10 PM CDT Dar Kilpatrick MD LAB - POINT OF CAR E ORDERABLES Performing Organization Address City/[facility]/ZIP Co de Phone Number [facility] [address] [place] [address], [place] [phone] * (ABNORMAL) BLOOD GASES ART + COOX PANEL (09/28/2021 11:54 AM CDT) Pathologist [facility] pH Arterial 7.33(L) 7.35 - 7.45 pH 09/28/2021 12:04 PM [facility] pO2 Arterial 141(H) 80 - 100 mmHg 09/28/2021 12:04 PM [facility] pCO2 Arterial 37 35 - 45 mmHg 12:04 PM T [facility] HCO3 Arterial 20 20 - 30 mmol/l 09/28/2021 12:04 PM T [facility] BE Arterial -5.9(L) -2.0 - 2.0 mmol/L 09/28/2021 12:04 PM [facility] Oxyhemoglobin Arterial 97.5 % 09/28/2021 12:04 PM T [facility] Dexoyhemoglobin (HHB) % 0.7 % 09/28/2021 12:04 PM [facility] Methemoglobin 0.8 0.0 - 2.0 % 09/28/2021 12:04 PM [facility] Carboxyhemoglobin 1.0 0.0 - 2.0 % 2021 12:04 PM [facility] O2 Content Arterial 14.9 Interpret within clinical context mg/dL 09/28/2021 12:04 PM [facility] Hemoglobin by COOX 10.7(L) 12.0 - 17.6 g/dL 09/28/2021 12:04 PM [facility] O2 Saturation Arterial 99 90 - 100 % 09/28/2021 12:04 PM [facility] FI O2 Arterial 40.0 % 09/28/2021 12:04 PM [facility] Blood, arterial ARTERIAL BLOOD SPECIMEN / Unknown Arterial Puncture / Unknown 09/28/2021 11:54 AM CDT 09/28/2021 12:01 PM CDT Narrative [facility] - 09/28/2021 12:04 PM [facility] Carboxyhemoglobin Normal Concentration: Non-smokers: 0-2%; Smokers: 0-9%; Toxic: >20% Dar Kilpatrick MD LAB - BLOOD GASES ORDERABLES Performing Organization Address City/State/[facility] Co de Phone Number [address] [address], [facility] [phone] * (ABNORMAL) CALCIUM IONIZED WHOLE BLOOD (09/28/2021 11:54 AM CDT) Pathologist [facility] Calcium Ionized 1.22 mmol/L 09/28/2021 12:05 PM [facility] pH 7.33(L) 7.35 - 7.45 pH 09/28/2021 12:05 PM [facility] Ionized Calcium pH Adjusted 1.19 1.19 - 1.34 mmol/L 09/28/2021 12:05 PM [facility] Blood BLOOD SPECIMEN / Unknown Venipuncture / Unknown 09/28/2021 11:54 AM CDT 09/28/2021 12:01 PM CDT Dar Kilpatrick MD LAB - CHEMISTRY OR DERABLES Performing Organization Address City/[facility]/ZIP Co de Phone Number [facility] [address] [place] [address], [facility] [phone] * (ABNORMAL) BASIC METABOLIC PANEL (CALCIUM TOTAL) (09/28/2021 11:54 AM CDT) BUN 15 7 - 26 mg/dL 09/28/2021 1:22 PM [facility] Creatinine 1.78(H) 0.71 - 1.16 mg/dL 09/28/2021 1:22 PM [facility] Sodium 141 136 - 145 mmol/L 09/28/2021 1:22 PM [facility] Potassium 5.1(H) 3.5 - 4.5 mmol/L 09/28/2021 1:22 PM [facility] Chloride 113(H) 98 - 107 mmol/L 09/28/2021 1:22 PM [facility] CO2 19(L) 22 - 29 mmol/L 09/28/2021 1:22 PM [facility] Glucose 123(H) 70 - 115 mg/dL 09/28/2021 1:22 PM [facility] Calcium 8.5 8.4 - 10.2 mg/dL 09/28/2021 1:22 PM [facility] Anion Gap 14 8 - 18 09/28/2021 1:22 PM [facility] BUN/Creatinine Ratio 8 7 - 23 09/28/2021 1:22 PM [facility] Osmolality Calculated 294 270 - 300 mOsm/kg 09/28/2021 1:22 PM [facility] eGFR by CKD-EPI 49(L) >=90 mL/min/1.7 3 m2 09/28/2021 1:22 PM [facility] Blood BLOOD SPECIMEN / Unknown Venipuncture / Unknown 09/28/2021 11:54 AM CDT 09/28/2021 12:24 PM CDT Dar Kilpatrick MD LAB - CHEMISTRY OR DERABLES [facility] [address] [place] [address], [facility] [phone] * (ABNORMAL) CBC W AUTO DIFFERENTIAL (09/28/2021 11:54 AM CDT) WBC 15.2(H) 3.5 - 10.5 10? 3 /uL 09/28/2021 12:35 PM [facility] RBC 3.31(L) 4.30 - 5.70 10? 6 /uL 09/28/2021 12:35 PM [facility] Hemoglobin 10.3(L) 12.0 - 17.6 g/dL 09/28/2021 12:35 PM [facility] Hematocrit 30.5(L) 35.2 - 51.7 % 09/28/2021 12:35 PM [facility] MCV 92.1 80.7 - 98.3 fL 09/28/2021 12:35 PM [facility] MCH 31.1 26.7 - 34.0 pg 09/28/2021 12:35 PM [facility] MCHC 33.8 30.8 - 35.9 g/dL 09/28/2021 12:35 PM [facility] Platelet Count 143(L) 150 - 400 10? 3 /uL 09/28/2021 12:35 PM [facility] RDW-SD 47.8 36.0 - 50.0 fL 09/28/2021 12:35 PM [facility] RDW-CV 14.1 11.2 - 14.8 % 09/28/2021 12:35 PM [facility] MPV 10.5 9.4 - 12.9 fL 09/28/2021 12:35 PM [facility] nRBC Absolute 0.00 0 10? 3 /uL 09/28/2021 12:35 PM [facility] nRBC Auto 0.0 0 /100 WBC 09/28/2021 12:35 PM [facility] Neutrophils % 87.4(H) 35.0 - 70.0 % 09/28/2021 12:35 PM [facility] Lymphocytes % 4.8(L) 20.0 - 43.0 % 09/28/2021 12:35 PM T [facility] Monocytes % 7.3 5.0 - 13.0 % 09/28/2021 12:35 PM [facility] Eosinophils % 0.0 0.0 - 6.0 % 09/28/2021 12:35 PM [facility] Basophil % 0.1 0.0 - 2.0 % 09/28/2021 12:35 PM T [facility] Neutrophils Absolute 13.28(H) 1.60 - 7.00 10? 3 /uL 09/28/2021 12:35 PM [facility] Lymphocyte Absolute 0.73(L) 1.10 - 3.90 10? 3 /uL 09/28/2021 12:35 PM [facility] Monocytes Absolute 1.11(H) 0.26 - 1.07 10? 3 /uL 09/28/2021 12:35 PM [facility] Eosinophils Absolute 0.00 0.00 - 0.47 10? 3 /uL 09/28/2021 12:35 PM T [facility] Basophils Absolute 0.01 0.00 - 0.08 10? 3 /uL 09/28/2021 12:35 PM [facility] Immature Granulocytes % 0.4 0.0 - 1.0 % 09/28/2021 12:35 PM [facility] Immature Granulocytes Absolute 0.06 09/28/2021 12:35 PM [facility] Blood BLOOD SPECIMEN / Unknown Venipuncture / Unknown 09/28/2021 11:54 AM CDT 09/28/2021 12:24 PM CDT Darrell Gomez MD LAB - HEMATOLOGY ORD ERABLES [facility] [address] [place] [address], [facility] [phone] * (ABNORMAL) GLUCOSE - POINT OF CARE (09/28/2021 8:21 AM CDT) Glucose WB/POC 137(H) 70 - 115 mg/dL 09/28/2021 8:22 AM [facility] Specimen Type Cap Fingerstick 2021 8:22 AM [facility] Blood BLOOD SPECIMEN / Unknown 09/28/2021 8:21 AM CDT 09/28/2021 8:22 AM CDT Dar Kilpatrick MD LAB - POINT OF CAR E ORDERABLES [facility] [address] [place] [address], [facility] [phone] * (ABNORMAL) CBC W AUTO DIFFERENTIAL (09/28/2021 6:14 AM CDT) WBC 19.6(H) 3.5 - 10.5 10? 3 /uL 09/28/2021 6:29 AM [facility] RBC 3.44(L) 4.30 - 5.70 10? 6 /uL 09/28/2021 6:29 AM [facility] Hemoglobin 10.7(L) 12.0 - 17.6 g/dL 09/28/2021 6:29 AM [facility] Hematocrit 31.8(L) 35.2 - 51.7 % 09/28/2021 6:29 AM [facility] MCV 92.4 80.7 - 98.3 fL 09/28/2021 6:29 AM [facility] MCH 31.1 26.7 - 34.0 pg 09/28/2021 6:29 AM [facility] MCHC 33.6 30.8 - 35.9 g/dL 09/28/2021 6:29 AM [facility] Platelet Count 181 150 - 400 10? 3 /uL 09/28/2021 6:29 AM [facility] RDW-SD 48.0 36.0 - 50.0 fL 09/28/2021 6:29 AM [facility] RDW-CV 14.1 11.2 - 14.8 % 09/28/2021 6:29 AM [facility] MPV 9.9 9.4 - 12.9 fL 09/28/2021 6:29 AM [facility] nRBC Absolute 0.00 0 10? 3 /uL 09/28/2021 6:29 AM [facility] nRBC Auto 0.0 0 /100 WBC 09/28/2021 6:29 AM [facility] Neutrophils % 88.5(H) 35.0 - 70.0 % 09/28/2021 6:29 AM [facility] Lymphocytes % 3.2(L) 20.0 - 43.0 % 09/28/2021 6:29 AM [facility] Monocytes % 7.7 5.0 - 13.0 % 09/28/2021 6:29 AM [facility] Eosinophils % 0.0 0.0 - 6.0 % 09/28/2021 6:29 AM [facility] Basophil % 0.2 0.0 - 2.0 % 09/28/2021 6:29 AM [facility] Neutrophils Absolute 17.37(H) 1.60 - 7.00 10? 3 /uL 09/28/2021 6:29 AM [facility] Lymphocyte Absolute 0.63(L) 1.10 - 3.90 10? 3 /uL 09/28/2021 6:29 AM [facility] Monocytes Absolute 1.51(H) 0.26 - 1.07 10? 3 /uL 09/28/2021 6:29 AM [facility] Eosinophils Absolute 0.00 0.00 - 0.47 10? 3 /uL 09/28/2021 6:29 AM [facility] Basophils Absolute 0.03 0.00 - 0.08 10? 3 /uL 09/28/2021 6:29 AM [facility] Immature Granulocytes % 0.4 0.0 - 1.0 % 09/28/2021 6:29 AM [facility] Immature Granulocytes Absolute 0.08 09/28/2021 6:29 AM [facility] Blood BLOOD SPECIMEN / Unknown Venipuncture / Unknown 09/28/2021 6:14 AM CDT 09/28/2021 6:20 AM T Darrell Gomez MD LAB - HEMATOLOGY ORD ERABLES [facility] [address] [place] [address], [facility] [phone] * XR CHEST 1VW PORTABLE (09/28/2021 4:41 [...] prior CT. Dictated by Donald Ramos MD (residential support specialist). Dr. JHON Connor MD have personally reviewed [...] on priorCT. Dictated by Donald Ramos MD (residential support specialist). Dr. JHON Connor MD have personally reviewed and interpreted this examination/study. This report was electronically signed by JHON LEBLANC MD on 09/28/2021 2:49 PM . Dar Kilpatrick MD DIAGNOSTIC IMAGING ORDERABLES * (ABNORMAL) GLUCOSE - POINT OF CARE (09/28/2021 3:55 AM CDT) Glucose WB/POC 135(H) 70 - 115 mg/dL 09/28/2021 3:59 AM CDT [facility] Specimen Type Arterial 09/28/2021 3:59 AM CDT [facility] Blood BLOOD SPECIMEN / Unknown 09/28/2021 3:55 AM CDT 09/28/2021 3:59 AM CDT Dar Kilpatrick MD LAB - POINT OF CAR E ORDERABLES [facility] [address] [place] [address], [facility] [phone] * (ABNORMAL) HEMOGLOBIN A1C (09/28/2021 3:55 AM CDT) Hemoglobin A1c 5.9(H) <=5.6 % 09/28/2021 9:03 AM CDT [facility] Estimated Average Glucose 123 mg/dL 09/28/2021 9:03 AM CDT [facility] Comment: HbA1c Interpretation: Normal : < 5.7% Pre-diabetes: 5.7-6.4% Diabetes: Equal to or greater than 6.5% Test results diagnostic of diabetes should be repeated for confirmation. Treatment target values recommended by ADA and other clinical organizations should be used to evaluate metabolic control in patients. Reference: [place] [employer], Standards of Care in Diabetes [...] Gomez MD LAB - CHEMISTRY DANIAL DUPREE [address] [address], [place] [phone] * (ABNORMAL) GLUCOSE - POINT OF CARE (09/28/2021 2:13 AM CDT) Glucose WB/POC 126(H) 70 - 115 mg/dL 09/28/2021 2:18 AM CDT [facility] Specimen Type Arterial 09/28/2021 2:18 AM CDT [facility] Blood BLOOD SPECIMEN / Unknown 09/28/2021 2:13 AM CDT 09/28/2021 2:18 AM CDT Dar Kilpatrick MD LAB - POINT OF CAR E ORDERABLES Performing Organization Address City/[facility]/ZIP Co de Phone Number [address] [address], [place] [phone] * BLOOD TYPE VERIFICATION (09/28/2021 2:08 AM CDT) ABO Rh O POS 09/28/2021 2:4 6 AM CDT [facility] Blood Bank BLOOD SPECIMEN / Unknown Lab Venipuncture / Unknown 09/28/2021 2:08 AM CDT 09/28/2021 2:18 AM CDT Dar Kilpatrick MD LAB - BLOOD BANK O RDERABLES [facility] [address] [place] [address], [place] [phone] * (ABNORMAL) CBC W AUTO DIFFERENTIAL (09/27/2021 10:55 PM CDT) WBC 14.9(H) 3.5 - 10.5 10? 3 /uL 09/27/2021 11:23 PM CDT [facility] RBC 3.28(L) 4.30 - 5.70 10? 6 /uL 09/27/2021 11:23 PM [facility] Hemoglobin 10.3(L) 12.0 - 17.6 g/dL 09/27/2021 11:23 PM [facility] Hematocrit 30.7(L) 35.2 - 51.7 % 09/27/2021 11:23 PM [facility] MCV 93.6 80.7 - 98.3 fL 09/27/2021 11:23 PM [facility] MCH 31.4 26.7 - 34.0 pg 09/27/2021 11:23 PM [facility] MCHC 33.6 30.8 - 35.9 g/dL 09/27/2021 11:23 PM [facility] Platelet Count 148(L) 150 - 400 10? 3 /uL 09/27/2021 11:23 PM [facility] RDW-SD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 Provider: Jyoti Patiño RN)2120 (See Alternative - Provider: Jyoti Benz RN) 0735 (See Alternative - Provider: Jyoti Patiño RN)1624 (See Alternative - Provider: Jyoti Patiño RN) saline nasal spray ([place]; [facility] [place]) 0.65 % nasal spray 2 spray 2 spray, Each Nostril, EVERY 2 HOURS PRN, Dry Nose, Starting on 10/10/21 at 1945, Until Tue10/13/21 at 2010 Linked Groups Order Group 1: SALINE LOCK, INSERT AND MAINTAIN (CANCELED) Routine, CONTINUOUS, Starting on [place] 09/27/21 at 2100, Until Specified, New collection, Task Completed: Yes And 0.9% NaCl injection 3 mLJump to med 3 mL, Intracatheter, EVERY 8 HOURS, First dose on 09/27/21 at 2200, Until Discontinued, Flush peripheral IV catheter with 3 mL of normal saline every 8 hours. And 0.9% NaCl injection 1-10 mLJump to med 1-10 mL, Intracatheter, PRN, Other, peripheral line flush, Starting on [place] 09/27/21 at 2056, Until Tue10/13/21 at 2010, [...] MAR. documented in this encounter Care Teams Photographer Motion Picture Relationship Specialty Start Date End Date Hussain Rushing APRN-TRAMAINE 09/28/21 documented as of this encounter
--- OUTSIDE RECORDS SUMMARY | 2024-03-26 05:40 | XMS_ITS | Encounter Summary ---
Author Organization [facility] Healthcare Address [address] [place] [address] Care Team Providers Care Concrete Placement Equipment Operator Name Role Phone Clinic, Pcp Primary Care Provider Unavailabl e Encounter Details Date Type Department Care Team (Late st Contact Info) Description 10/27/2021 Orders Only Physical Medicine and Rehabilitation Adriana Espinoza MD [address] [facility] [address] [place] [address] Paraplegia (HCC) (Primary Dx) Social History Tobacco Use Types Packs/Day Years Used Date Smoking Tobacco: Never Assessed Sex and Gender Information Value Date Recorded Sex Assigned at Not on file Legal Sex Male 7:46 AM ROLLER HAND Gender Identity Not on file Sexual Orientation Not on file documented as of this encounter Plan of Treatment Not on file documented as of this encounter Visit Diagnoses Diagnosis Paraplegia (HCC)- Primary Paraplegia documented in this encounter Care Teams Concrete Placement Equipment Operator Relationship Specialty Start Date End Date Clinic, Pcp PCP - General 07/14/16 03/25/22 documented as of this encounter
--- OUTSIDE RECORDS SUMMARY | 2024-03-26 05:40 | XMS_ITS | Referral Summary ---
Author Organization [facility] Address [address] [place] [address] Care Team Providers Care Network Systems Operator Name Role Phone Cristobal Agustin MD Primary Care Provider Allergies Active Allergy Reactions Criticality Noted Date Comments Tramadol Headache Low 04/27/2022 Medications acetaminophen (TYLENOL) 500 mg tablet Take 1,000 mg by mouth 3 (three) times a day 10/14/2021 Active amLODIPine (NORVASC) 5 mg tablet Take 5 mg by mouth every morning 02/15/2022 Active baclofen (LIORESAL) 10 mg tablet Take 10 mg by mouth 3 (three) times a day For muscle spasms 02/15/2022 Active chlorhexidine (PERIDEX) 0.12 % solution Swish and spit daily 10/13/2021 Active docusate sodium (COLACE) 100 mg capsule Take 100 mg by mouth as needed 02/15/2022 Active enoxaparin (LOVENOX) 40 mg/0.4 mL syringe Inject 40 mg under the skin every 12 (twelve) hours Active HYDROcodone-kane taminophen (NORCO) 5-325 mg per tablet Take 1 tablet by mouth as needed 04/23/2020 Active ibuprofen (ADVIL,MOTRIN) 800 mg tablet Take 800 mg by mouth 3 (three) times a day as needed Active Linzess 145 mcg capsule Take 145 mcg by mouth daily 02/15/2022 Active methocarbamoL (ROBAXIN) 750 mg tablet Take 750 mg by mouth every 8 (eight) hours 10/13/2021 Active pregabalin (LYRICA) 150 mg capsule Take 150 mg by mouth 2 (two) times a day 04/23/2022 Active Active Problems Problem Noted Date Diagnosed Date Spinal cord injury at T7-T12 level (CMS/HCC) 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 Paraplegia 11/12/2021 Essential hypertension 11/12/2021 Posttraumatic stress disorder 11/12/2021 Chronic idiopathic constipation 11/12/2021 Immunizations Name Administration Dates Next Due MMR 08/15/1991 Tdap 09/27/2021,07/06/2018 Social History Tobacco Use Types Packs/Day Years Used Date Smoking Tobacco: Every Day Cigarettes Smokeless Tobacco: Never Tobacco Cessation:Ready to Q uit: No; Counseling Given: Yes PHQ-2 Answer Date Recorded PHQ-2 Total Score (If total score is 3 or more points, staff should administer the PHQ-9) 2 04/27/2022 Personal Safety Answer Date Recorded Getting School Help Needed Not on file 02/23 Sex and Gender Information Value Date Recorded Sex Assigned at Not on file Legal Sex Male 7:46 AM THERAPEUTIC STRATEGY LEAD Gender Identity Not on file Sexual Orientation Not on file Last Filed Vital Signs Vital Sign Reading Time Taken Comments Blood Pressure 130/84 04/27/2022 8:43 AM THERAPEUTIC STRATEGY LEAD Pulse 81 04/27/2022 8:43 AM THERAPEUTIC STRATEGY LEAD Temperature 36.8 ??C (98.2 ??F) 04/23/2020 8:10 AM CS T Respiratory Rate - - Oxygen Saturation 100% 04/23/2020 8:10 AM THERAPEUTIC STRATEGY LEAD Inhaled Oxygen Concentration - - Weight 76.2 kg (168 lb) 04/27/2022 8:43 AM THERAPEUTIC STRATEGY LEAD Height 175.3 cm (5' 9) 04/27/2022 8:43 AM THERAPEUTIC STRATEGY LEAD Body Mass Index 24.81 04/27/2022 8:43 AM THERAPEUTIC STRATEGY LEAD Plan of Treatment Not on file Insurance AETNA [facility] AETNA [facility]TER [facility] AETNA BETTER TH OR AETNA BETTER [facility] OR Care Teams Network Systems Operator Relationship Specialty Start Date End Date Cristobal Agustin MD PCP - General Gastroenterology 03/26/22
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
--- OUTSIDE RECORDS SUMMARY | 2024-03-26 05:40 | XMS_ITS | Encounter Summary ---
Author Organization [facility] Healthcare Address [address] [place] [address] Care Team Providers Care Textile Screen Maker Name Role Phone Cristobal Agustin MD Primary Care Provider Reason for Visit * Reason Comments PT Treatment * Physical Therapy (Routine) - Closed Specialty Diagnoses / Procedures Referred By Contac t Referred To Contact Physical Therapy Diagnoses Paraplegia, unspecified (HCC) Cristobal Agustin MD [address] [place] [id number] Phone: tel: fax: [facility] OP Physical Therapy [address] [place] [id number] Phone: tel: fax: Referral ID Status Reason Start Date Expiration Date V isits Requested Visits Authorized [id number] Closed Evaluate and Treat 08/27/2022 03/13/2023 6 99 Encounter Details Date Type Department Care Team (Late st Contact Info) Description 10/26/2022 11:30 AM CDT Therapy [facility] OP Physical Therapy [address] [place] [id number] Dre Napier PTA Paraplegia, unspecified (HCC) (Primary Dx) Social History Tobacco Use Types Packs/Day Years Used Date Smoking Tobacco: Every Day Cigarettes Smokeless Tobacco: Never PHQ-2 Answer Date Recorded PHQ-2 Total Score (If total score is 3 or more points, staff should administer the PHQ-9) 2 04/27/2022 Sex and Gender Information Value Date Recorded Sex Assigned at Not on file Legal Sex Male 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 Paraplegia, unspecified (HCC) 344.1 G82.20 PT Diagnosis: Paraplegia Precautions: Paraplegia T12-L2 SCI Relevant Comorbidities: HTN Short-Term Goals: to be met by 09/17/22 Patient will be instructed in HEP met Patient will sit edge of bed with no UE/LE support and reach outside DESTIN without LOB to improve safety with showering progressing Patient will tolerate >15 min in stander to offload low back and buttock pressure to dec pain inlow back Long-Term Goals: to be met by 10/08/22 Patient will be independent in HEP (new and revised). 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 to senior investment manager // bars with Min A for knee buckling for > 5 min to improve tolerance/ability with standing Patient will improve core strength from current baseline to improve sitting balance, transfers, bedmobility with more ease Patient Goal: standing on his own or transferring without sliding board and then potentially walking again PT Eval Date: 08/27/22 PROGRESS NOTE: 10-05-22 Orders : 10/08/22, 11-30-22 Date Date date date date 10-07-22 10/15/22 10-19-22 10-22-22 10-26-22 Visit Number [id number] 10 min late to appt 5 min late ADDITIONAL HEP SHEETS ISSUED UE bike performed, encouraged to try to acquire one for home UBE 10 min Level 6 Nu Step (foot straps and knee straps) L6 10 min with attachments L6 10 min with attachments Stander Standing Frame 15 min with 4# wtd ball and black theraband Standing frame 30 min Standing frame 15 min Standing frame 20 min Standing frame 25 min Stander: T band rows Rows, single rows, horiz abd, punch 20x each Rows, rows with ER 20x, Pallof press Rows, rows with ER 20x, Pallof press Rows, rows with ER 20x, Pallof press Rows, rows with ER 20x, Pallof press Stander: ball resistance 4# ball over head, press out, diagnols, and round about Ridge ball [id number], diagonals 4# ball over head, press out, diagnols, and round about 6# ball over head, press out, diagnols, and round about Forgot, did it on mat in short sitting and long sitting Core Strengthening -half bosu sit ups -pertubations in all directions -pelvic tilts -ta bracing with resistance from therapist Long sitting, sit ups 10x with assist. Short sitting pt falls forward someone must senior investment manager front. Ball press ups over head, single rows 10x Perturbations in stander Seated: T System: Trunk rotation Pallof Push Nautilus: -Lat pulls -Rows -bench Biceps Diagonal up Lat pull dows 2x20 Used BAR Lat pull down 70# x40 Rows 50# x40 Bicep 70# x40 Bench press 50# x55 Used BAR Lat pull down 70# x40 Bicep 30# x40 Bench press 40# x50 // BARS STS // bars 3x with both hands on bars then moving the right hand to therapist shoulder to maintain stance nt sliding board transfers Pt demonstrating transfers without sliding board today transfers without sliding board Progress Note/Re-Cert * Dre Napier PTA - 10/26/2022 11:30 AM CDT Images from the original note were not included. Physical Therapy Visit/Daily Note 10/26/2022 Solo Miller 1985 ICD-9-CM ICD-10-CM 1. Paraplegia, unspecified ([facility]) 344.1 G82.20 Subjective: Pt reported that he is having moderate pain in his lowback. Patient reports continued difficulty with increasing joint pain with lying and sitting for long periods of time. Feels that the standing frame helps to decrease his back pain. Pain today is 6/10 . (Low back and abdominal pain) Objective: Objective Measurement/Observation Pt arrived to PT in manual W/C . Pt is independent with transfersw/o use of sliding board. Pt performed trunk and core strengthening ex's while standing in the stander using t-band for resistance. Ended with Nu-step for LE ROM and UE strengthening. Specific exercises and treatment interventions are outlined on exercise worksheet document. Treatment Performed on This Visit: Manual Therapy (body part and techniques): NT Therapeutic Procedure/Exercise: stander while performing core strengthening ex's. Nu-step machine Modalities: NT HEP given: NT Patient education: discussed i3 membrane gym in [place] for patient to research for possible gym to transition to following therapy appointments. Provided website and phone number. Assessment: Patient worked hard and was motivated in PT. Patient demonstrates Bilat LE paralysis and core weakness. Pt feels like his core musculature is getting stronger because he has better control of his trunk when performing ex's. Patient would benefit from additional skilled therapy services and demonstrates good prognosis to achieve stated goals. Goals Addressed This Visit: all Plan: Patient would benefit from the following modification on next visit: cont with current exercises Therapy will continue to address these impairments in order to progress towards functional goals. Dre Napier PTA [facility] ATTENTION PHYSICIAN If you are unable to electronically sign this document, please print this document and sign below to certify this plan of care/treatment plan. By signing this document, I certify that I have reviewedthis plan of care and support the treatment. Please fax back to . Thank you. Provider Signature: Date: documented in this encounter Plan of Treatment Not on file documented as of this encounter Visit Diagnoses Diagnosis Paraplegia, unspecified (HCC)- Primary documented in this encounter Care Teams Textile Screen Maker Relationship Specialty Start Date End Date Cristobal Agustin MD PCP - General Gastroenterology 03/26/22 documented as of this encounter
--- OUTSIDE RECORDS SUMMARY | 2024-03-26 05:40 | XMS_ITS | Continuity of Care Document ---
Author Organization [facility] Address [address] [place] [address] Care Team Providers Care Electronics Processing Supervisor Name Role Phone CRISTOBAL AGUSTIN Primary Care Provider Unavailabl e Assessment No assessment recorded. Plan of Treatment Reminders Order Date Submit Date Provider Last Modified By Organization Details Last Modified Time Details Appointments ANY 15 2024 11:45A M Cristobal Agustin MD Not available Not available Not available Lab None recorded. Referral urologist referral 2023 024 ESTELA Harris MD, [address] [facility] [address], [place], [address], 01/17/2024 16:38:30 Procedures None recorded. Surgeries None recorded. Imaging None recorded. Medication Orders None recorded. Patient TargetsNo targets recorded. Patient Instructions Encounter Date Encounter Id Patient Instructions Last Modified By Organization Details Last Modified Time 12/19/2023 [id number] spinal cord injury (paraplegic): care instructions [email or web address] Not available 12/19/2023 13:59:32 Reason for Referral Urologist Referral for Recur rent urinary tract infection Referring Physician: Cristobal Agustin, Internal Medicine, Encounter Date: 12/19/2023 Problems Name Problem SNOMED Code Status Onset Date Resolution Date Notes Provider Name and Address Organization Details Recorded Time Chronic idiopathic constipation 44387724 Active 2021 Not Available [facility] 20:14:21 Posttraumatic stress disorder 48961641 Active 2021 Not Available [facility] 20:14:21 Paraplegia 57544232 Active 2021 T12-L1 Not Available [facility] 2 20:14:21 Essential hypertension 93777943 Active 2021 Not Available [facility] 2 20:14:21 Finding of odor of urine 89152453 Active 2021 Not Available [facility] 2 20:14:21 Pilonidal cyst 32738312 Active 2021 Not Available [facility] 2 20:14:21 Gastritis 8253255 Active 2021 Not Available [facility] 2 20:14:21 Fracture of multiple ribs 4181759 Active 2021 Ezra Peralta PA-C Attn: Accounting ,[address] [place], [address] , [place] - [facility] 2 10:59:42 Chronic retention of urine 799697138 Active 2021 Cristobal Agustin MD Attn: Accounting ,[address] [place], [address] , [place] [facility] 2 18:04:38 Pain in pelvis 93618978 Active 2021 Cristobal Agustin MD Attn: Accounting ,[address] [place], [address] , [place] [facility] 2 15:20:11 Abdominal pain 59269397 Active 2022 Cristobal Agustin MD Attn: Accounting ,[address] [facility], [place], [address] , [place] [facility] 3 13:54:40 Insomnia 591871844 Active 2022 Cristobal Agustin MD Attn: Accounting ,[address] [place], [address] , [place] [facility] 3 17:25:23 Cloudy urine 0974016 Active 2022 Cristobal Agustin MD Attn: Accounting ,[address] [place], [address] , [place] [facility] 3 17:27:11 Chronic back pain 366733442 Active 2022 Cristobal Agustin MD Attn: Accounting ,[address] [facility], [place], [address] , [facility] 3 17:35:49 Fatigue 52079184 Active 2022 Cristobal Agustin MD Attn: Accounting ,[address] [facility], [place], [address] , [facility] 3 17:38:27 Recurrent urinary tract infection 415621511 Active 2022 Cristobal Agustin MD Attn: Accounting ,[address] [facility], [place], [address] , [facility] 3 17:41:29 Double incontinence 25269400 Active 2023 Cristobal Agustin MD Attn: Accounting ,[address] [facility], [place], [address] , [facility] 4 15:56:26 Problem Notes None recorded. Procedures Surgical History Date Name Laterality Status Provider Name and Address Organization Details Recorded Time 09/27/2021 procedure completed Jacklyn Reddy MA ID - [facility] 11/12/2021 12:03:27 Imaging Results None recorded. Procedure Notes None recorded. Medical Equipment None Reported. Allergies No known drug allergies Medications Name Sig Start Date Stop Date Status Note LastModified by Organization Details LastModified Time cyclobenzap rine 10 mg tablet 02/23 completed Not Available Not Available Not Available azelastine 0.05 % eye drops PLACE 1 DROP IN BOTH EYES TWICE A DAY 05/03 completed Not Available Not Available Not Available trazodone 50 mg tablet 02/23 completed Not Available Not Available Not Available cetirizine 10 mg tablet TAKE 1 TABLET BY MOUTH EVERY DAY 11/12 completed Not Available Not Available Not Available cefpodoxime 200 mg tablet TAKE 1 Tablet BY MOUTH TWICE DAILY DIRECTED. 05/03 completed Not Available Not Available Not Available ibuprofen 800 mg tablet TAKE ONE TABLET BY MOUTH THREE TIMES DAILY NEEDED WITH FOOD 09/20 completed Not Available Not Available Not Available Pyridium 200 mg tablet Take 1 tablet 3 times a day by oral route as directed for 10 days. 02/23 completed Not Available Not Available Not Available metronidazo le 500 mg tablet TAKE 1 TABLET BY MOUTH EVERY 12 HOURS FOR 14 DAYS 05/03 completed Not Available Not Available Not Available amlodipine 5 mg tablet TAKE ONE TABLET BY MOUTH EVERY MORNING FOR BLOOD PRESSURE 02/23 completed Not Available Not Available Not Available ciprofloxac in 500 mg tablet TAKE ONE TABLET BY MOUTH EVERY TWELVE HOURS FOR 10 DAYS FOR INFECTION 07/31 completed Not Available Not Available Not Available sulfamethox azole 800 mg-trimetho prim 160 mg tablet TAKE ONE TABLET BY MOUTH EVERY TWELVE HOURS FOR 10 DAYS 02/23 completed Not Available Not Available Not Available tramadol 50 mg tablet TAKE ONE TABLET BY MOUTH TWICE DAILY NEEDED 02/23 completed Not Available Not Available Not Available nortriptyli ne 25 mg capsule 02/23 completed Not Available Not Available Not Available trazodone 100 mg tablet Take 1 tablet every day by oral route at bedtime. 02/23 completed Not Available Not Available Not Available baclofen 10 mg tablet TAKE ONE TABLET BY MOUTH THREE TIMES DAILY FOR MUSCLE SPASMS 02/23 completed Not Available Not Available Not Available nitrofurant oin macrocrysta l 100 mg capsule TAKE 1 CAPSULE BY MOUTH TWICE A DAY 02/23 completed Not Available Not Available Not Available docusate sodium 100 mg capsule TAKE ONE CAPSULE BY MOUTH TWICE DAILY FOR CONSTIPAT ION 02/23 completed Not Available Not Available Not Available omeprazole 20 mg capsule,del ayed release TAKE ONE CAPSULE BY MOUTH TWICE DAILY BEFORE MEALS FOR STOMACH 02/23 completed Not Available Not Available Not Available cefuroxime axetil 500 mg tablet TAKE 1 TABLET BY MOUTH TWICE A DAY 02/23 completed Not Available Not Available Not Available Vitamin D2 1,250 mcg (50,000 unit) capsule TAKE 1 CAPSULE BY MOUTH ONCE EVERY 7 DAYS DIRECTED. TAKE ON TUESDAYS DIRECTED. 02/23 completed Not Available Not Available Not Available azithromyci n 1 gram oral packet 11/12 completed Not Available Not Available Not Available oxycodone 5 mg tablet 09/20 completed Not Available Not Available Not Available enoxaparin 40 mg/0.4 mL subcutaneou s syringe INJECT ONE syringe under the skin TWICE DAILY 02/23 completed Not Available Not Available Not Available escitalopra m 10 mg tablet TAKE ONE TABLET BY MOUTH EVERY MORNING FOR SEVEN DAYS 02/23 completed Not Available Not Available Not Available escitalopra m 20 mg tablet TAKE ONE TABLET BY MOUTH EVERY MORNING 02/23 completed Not Available Not Available Not Available pregabalin 75 mg capsule 12/25 completed Not Available Not Available Not Available pregabalin 150 mg capsule TAKE ONE CAPSULE BY MOUTH TWICE DAILY FOR PAIN 12/25 completed Not Available Not Available Not Available pregabalin 300 mg capsule TAKE ONE CAPSULE BY MOUTH TWICE DAILY EVERY MORNING & EVENING active Not Available Not Available No t Available chlorhexidi ne gluconate 0.12 % mouthwash 05/03 completed Not Available Not Available Not Available Linzess 145 mcg capsule TAKE ONE CAPSULE BY MOUTH EVERY DAY FOR CONSTIPAT ION 02/23 completed Not Available Not Available Not Available Vitals Date Recorded Body height Heart rate Oxygen saturation Oxygen saturation in Arterial blood by Pulse oximetry Systolic blood pressure Diastolic blood pressure Provider Name and Address Organization Details Last Updated DateTime 4 177.8 cm 66 /min 99 % 99 % 148 mm[Hg] 95 mm[Hg] Enmanuel Peralta MA ID - [facility] 13:09:31 Social History Question Answer Notes LastModified by Organizat ion Details LastModified Time Tobacco Smoking Status Current Every Day Smoker ANGELES Moon, ID - [facility] 11/12/2021 12:00:26 Do You Have An [place] Directive? No Information not available 02/23/2023 What Is Your Level Of Alcohol Consumption? None Information not available 11/12/2021 Are You Blind Or Do You Have Difficulty Seeing? No Information not available 11/12/2021 What Is Your Level Of Caffeine Consumption? None Information not available 11/12/2021 Are You Currently Employed? No Information not available 11/12/2021 Are You Deaf Or Do You Have Serious Difficulty Hearing? No Information not available 11/12/2021 What Type Of Diet Are You Following? REGULAR Information not available 11/12/2021 Are There Any Guns Present In Your Home? No Information not available 11/12/2021 Do You Have A Medical Power Of Contract Associate Manager? No Information not available 02/23/2023 What Was The Date Of Your Most Recent Tobacco Screening? 12/19/2023 Information not available 12/19/2023 How Many Children Do You Have? 2 Information not available 11/12/2021 What Is Your Relationship Status? Information not available 11/12/2021 Do You Use Your Seat Belt Or Car Seat Routinely? Yes Information not available 11/12/2021 Are You Sexually Active? No Information not available 11/12/2021 Do You Have Smoke And Carbon Monoxide Detectors In Your Home? Yes Information not available 11/12/2021 At What Age Did You Start Smoking Tobacco? 16 Information not available 11/12/2021 Are You Passively Exposed To Smoke? No Information no t available 11/12/2021 How Much Tobacco Do You Smoke? 0.25 PPD Information not available 11/12/2021 Do You Feel Stressed (tense, Restless, Nervous, Or Anxious, Or Unable To Sleep At Night)? [id number] Information not available 11/12/2021 Do You Use Any Illicit Or Recreational Drugs? Yes Marimegana Information not available 11/12/2021 Has Tobacco Cessation Counseling Been Provided? Yes Information not available 11/12/2021 On What Date Was Tobacco Cessation Counseling Provided? 12/19/2023 Information not available 12/19/2023 How Many Years Have You Smoked Tobacco? 20 Information not available 11/12/2021 Do You Or Have You Ever Used Any Other Forms Of Tobacco Or Nicotine? No Information not available 11/12/2021 Sex: Male Functional Status Question Answer Note LastModified by Organizat ion Details LastModified Time Are you able to care for yourself? No needs help Information not available 11/12/2021 What is your exercise level? None Information not available 11/12/2021 Mental Status None recorded. Family History Nothing Reported. Medical History Condition Response Coronary Artery Disease N Other N High Blood Pressure N Atrial Fibrillation N Kidney or Bladder Problems N Thyroid Problems N GI Problems N Depression N COPD N Blood Clots N Have you had a mammogram in the last yea r? N Skin Problems N Anemia N Heart Attack ([place]) N Anxiety Disorder N Diabetes N Muscle, Joint, or Bone Problems N Seizures/Epilepsy N Have you had a colonoscopy in the last 1 0 years? N Acid Reflux (GERD) N Cancer N Stroke N Asthma N Allergies N Have you had a PSA blood test in the las t year? N High Cholesterol N Hepatitis N Liver Disease N Headaches N Heart Failure N Osteoporosis N Past Encounters Encounter ID Performer Location Encounter Start Date Encounter Closed Date Diagnosis/Indication Diagnosis SNOMED-CT Code Diagnosis ICD10 Code Diagnosis Note [id number] Cristobal Agustin MD [facility] ([facility]) [address] [place] [phone] 12/19/2023 12:48:45 12/26/2023 14:19:42 Chronic retention of urine 074123982 R33.8 Continue self catheteriz ation Paraplegia 35830547 G82. 20 . Will request glider standing frame Recurrent urinary tract infection 869611471 N39.0 Health Concerns Section Related Observation LastModified by Organization Detai ls LastModified Time None Recorded Concern Status LastModified by Organization Details LastModified Time None Recorded Payers Encounter Date Sequence Insurance Name Policy Number Policy Jacome Covered Member ID Jacome Member ID Guarantor Name 12/19/2023 1 [employer] BETTER HE[employer] OF [place] ON OR AFTER 02/12/2020 (MEDICAID REPLACEMENT - HMO) Solo Miller [id number] Solo Miller Notes Date Note Type Note Provider Name and Address Organization Details Recorded Time 12/19/2023 text/html Here to request a glider standing frame which assists in standing him upright and moving his legs. He has recurrent burning with urination and in his lower abdomen Cristobal Agustin MD Attn: Accounting,[address] [facility], [place], [address], [facility] 12/19/2023 14:01:06
--- OUTSIDE RECORDS SUMMARY | 2024-03-26 05:40 | XMS_ITS | Encounter Summary ---
Author Organization [facility] Healthcare Address [address] [place] [address] Care Team Providers Care Transformer Stock Clerk Name Role Phone Cristobal Agustin MD Primary Care Provider Reason for Visit * Reason Comments PT Treatment * Physical Therapy (Routine) - Closed Specialty Diagnoses / Procedures Referred By Contac t Referred To Contact Physical Therapy Diagnoses Paraplegia, unspecified (HCC) Cristobal Agustin MD [address] [place] [id number] Phone: tel: fax: [facility] OP Physical Therapy [address] [place] [address] Phone: tel: fax: Referral ID Status Reason Start Date Expiration Date V isits Requested Visits Authorized [id number] Closed Evaluate and Treat 08/27/2022 03/13/2023 6 99 Encounter Details Date Type Department Care Team (Late st Contact Info) Description 10/19/2022 11:30 AM CDT Therapy [facility] OP Physical Therapy [address] [place] [id number] Dre Napier PTA Paraplegia, unspecified (HCC) [...] on file Legal Sex Male 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 Paraplegia, [...] and revised). 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 to machine trimmer // bars with Min A for knee buckling for > 5 min to improve tolerance/ability with standing Patient will improve core strength from current baseline to improve sitting balance, transfers, bedmobility with more ease Patient Goal: standing on his own or transferring without sliding board and then potentially walking again PT Eval Date: 08/27/22 PROGRESS NOTE: 10-05-22 Orders : 10/08/22, 11-30-22 Date Date Date Date date 09/29/22 10-05-22 10-07-22 10/15/22 10-19-22 Visit Number [id number] 10 min late to appt ADDITIONAL HEP SHEETS ISSUED UE bike performed, encouraged to try to acquire one for home UBE 10 min Level 6 Nu Step (foot straps and knee straps) NT Stander 20 min Standing Frame: 15 min Standing Frame 15 min with 4# wtd ball and black theraband Standing frame 30 min Standing frame 15 min Stander: T band rows Black: rows Pall of press bue Black: rows alf, and singles Cross pulls Rows, single rows, horiz abd, punch 20x each Rows, rows with ER 20x, Pallof press Rows,rows with ER 20x, Pallof press Stander: ball resistance 4 lbs ball overhead and diagonals 4# ball around back 5xE direction Overhead lift Diagonals 4# ball over head, press out, diagnols, and round about [place] ball around 10x, diagonals Arms crossed at chest for flexion/extension Forgot, did it on mat in short sitting and long sitting Core Strengthening -half bosu sit ups -pertubations in all directions -pelvic tilts -ta bracing with resistance from therapist Long sitting, sit ups 10x with assist. Short sitting pt falls forward someone must machine trimmer front. Ball press ups over head, single rows 10x Perturbations in stander Seated: T System: Trunk rotation Pallof Push Nautilus: -Lat pulls -Rows -bench Biceps Diagonal up Lat 60 lbs Rows 80 lbs Bench 30 lbs Ea 20 lbs Bicep 10 lbs Diagonal 10 lbs Lat pulls 75# 30x Rows 80# 30x Biceps 50# 30x Lat pull dows 2x20 Used BAR Lat pull down 70# x40 Rows 50# x40 Bicep 70# x40 Bench press 50# x55 // BARS SIT TO STAND WITH BUE'S, Stand one min 3x STS // bars 3x with both hands on bars then moving the right hand to therapist shoulder to maintain stance nt Max Asst to take right hand off of //bar and place on therapist shoulder to increase pressure on BLE sliding board transfers indep Pt demonstrating transfers without sliding board today transfers without sliding board Progress Note/Re-Cert [facility] * Dre Napier PTA - 10/19/2022 11:30 AM CDT Images from the original note were not included. Physical Therapy Visit/Daily Note 10/19/2022 Solo Miller 1985 ICD-9-CM ICD-10-CM 1. Paraplegia, unspecified (HCC) 344.1 G82.20 Subjective: Pt reported that he is having a usual amount of back discomfort. Patient reports continued difficulty with increasing joint pain with lying and sitting for long periods of time. Pain today is 7/10 . (Low back and abdominal pain) Objective: Objective Measurement/Observation Pt arrived to PT in manual W/C . Pt is independent with transfersusing the slide board. Pt performed trunk and core strengthening ex's while standing in the standerusing t-band for resistance. Pt used the Nautilus cable machine and UBE for UE and core strengthening sitting in his W/C. Specific exercises and treatment interventions are outlined on exercise worksheet document. Treatment Performed on This Visit: Manual Therapy (body part and techniques): NT Therapeutic Procedure/Exercise: stander while performing core strengthening ex's. Upper extremity ex's using Nautilus cable machine Modalities: NT HEP given: NT Patient education: NT Assessment: Patient worked hard and was motivated in PT. Patient demonstrates Bilat LE paralysis and core weakness. Pt feels like his core musculature is getting stronger because he has better control of his trunk when performing ex's. Patient would benefit from additional skilled therapy services and demonstrates good prognosis to achieve stated goals. Goals Addressed This Visit: STGs Plan: Patient would benefit from the following modification on next visit: cont with current exercises Therapy will continue to address these impairments in order to progress towards functional goals. Dre Napier PTA [facility] Services ATTENTION PHYSICIAN If you are [...] Primary documented in this encounter Care Teams Transformer Stock Clerk Relationship Specialty Start Date End Date Cristobal Agustin MD PCP - General Gastroenterology 03/26/22 documented as of this encounter
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
--- OUTSIDE RECORDS SUMMARY | 2024-03-26 05:40 | XMS_ITS | Encounter Summary ---
Author Organization [facility] Healthcare Address [address] [place] [address] Care Team Providers Care Caustics Loader Name Role Phone Cristobal Agustin MD Primary Care Provider Reason for Visit * Reason Comments PT Treatment Encounter Details Date Type Department Care Team (Late st Contact Info) Description 03/26/2022 12:45 PM MILL AND COAL TRANSPORT OPERATOR Therapy [facility] OP Physical Therapy [address] [place] [phone] Rosalina Richards, PT Zeenat Mckeon, BLOWER BLAST FURNACE Paraplegia, unspecified (HCC) (Primary Dx) Social History Tobacco Use Types Packs/Day Years Used Date Smoking Tobacco: Never Assessed Sex and Gender Information Value Date Recorded Sex Assigned at Not on file Legal Sex Male 7:46 AM 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 Paraplegia, unspecified (HCC) 344.1 G82.20 Precautions: paraplegia with T12 SCI PT Eval Date: 02/26/22 Orders : 04/15/22 Cert Expires: 04/15/22 Progress Note Due: 03/28/22 Date Date Date Date Date 02/26/22 03/12/22 03/19/22 03/26/22 Visit Number 1 2 3 4 Exercises/Treatment Sitting balance without UE support and reaching activities outside DEST[place] Attempted requires max A fortrunk control Nu step for UE assisted ROM of LE L5 w/ B foot straps and thigh supports x10 min L5 x10 min with B foot straps and B thigh supports Seat 10 B foot and thigh straps X 10 min Transfers W/ supervision Supervision with sliding board. Transfers between basic surface like mat<>w/c with SBA, transfers onto PT equipment with CGA/min assist due to angle of transfer, all with sliding board. W/c safety Indep in new w/c Indep self propels. Independent and demonstrates safely. Sit to supine and supine to sit Used leg coal mill operator for supine to sit, unable to use it for sit to supine Self DF stretch With leg coal mill operator Standing frame Initiated. Pt completed self raising and lowering with RUE. Stood x20 min in standing frame. Pt was able to move BUE's while in standing frame with use of chest strap Pt completed selfraising and lowering with RUE. Stood x 9 min in standing frame. Pt was able to move BUE's and cervical AROM while in standing frame with use of chest strap Progress Note/Re-Cert CAG Goals: Short-Term Goals: to be met by 03/25/22 Patient will be instructed in HEP Patient will sit edge of bed X 3 min without UE support without LOB Patient will transfer safely with all W/C management independently. Tolerate > 5 min with Nu step for UE assisted LE ROM as able. Long-Term Goals: to be met by 04/15/22 Patient will be independent in HEP (new and revised). Patient will sit edge of bed with UE support X 5 min Patient will sit edge of bed with UE reach outside DEST[place] without UE support of other UE without LOB Patient Goal: walk, shorter goal is for sitting balance. AND COAL TRANSPORT OPERATOR * Rosalina Richards, PT - 03/26/2022 12:45 PM CST Images from the original note were not included. Physical Therapy Progress Report 03/26/2022 Solo Miller 1985 ICD-9-CM ICD-10-CM 1. Paraplegia, unspecified (HCC) 344.1 G82.20 Subjective: Pt reports he felt good after using the standing frame last visit. Pt is reporting continued difficulty with mobility of the lower body. Pain today is 0/10 denies pain this date Changes since last visit include none. Patient reports she has been in communication with case resource manager and needs are currently being met. Patient reports new w/c is working out good. No change in home situation. Patient reports he challenges his sitting balance at home, but experiences some back pain when the back is not supported. Reports somewhat when asked if his balance is improving. Denies any fall in the past one month. Objective: Discussed with patient need to establish with new PCP for PT orders and to sign off on plan ofcare. Co -treatment with BLOWER BLAST FURNACE Nataliya this date. Objective Measurement/Observation: patient transfers between all PT surfaces with min to CGA for safety. Basic transfers are done safely without assist. Wt: 166.8 lb Sitting balance without UE support with near SBA up to 30 sec with B LE supported on floor Sitting balance with B UE on LE not challenged with balance Specific exercises and treatment interventions are outlined on exercise worksheet document. Home Exercise Program: sitting balance. Patient encouraged to challenge self safely at home with use of decrease in UE support to one finger vs. Whole hand support. May include cervical mobility and closed eyes to challenge. Assessment: Patient tolerated today's treatment good. Patient demonstrates fatigue with core and back with working on sitting balance, but shows great motivation with sitting EOB and use of standing frame to work on core strength. Patient core weakness which is contributing to difficulty with sitting balance without support. Patient would benefit fromadditional skilled therapy services in order to address above deficits and return to prior level of function. Goals Addressed This Visit: Short-Term Goals: to be met by 03/25/22 Patient will be instructed in HEP MET Patient will sit edge of bed X 3 min without UE support without LOB ONGOING Patient will transfer safely with all W/C management independently. MET Tolerate > 5 min with Nu step for UE assisted LE ROM as able. MET Long-Term Goals: to be met by 04/15/22 all ONGOING Patient will be independent in HEP (new and revised). Patient will sit edge of bed with UE support X 5 min Patient will sit edge of bed with UE reach outside [place] without UE support of other UE without LOB Patient Goal: walk, shorter goal is for sitting balance. Plan: Patient would benefit from the following modification on next visit: continue PT X 2 visits per current POC. Therapy will continue to address these impairments in order to progress towards functional goals. Rosalina Richards PT [facility] Please sign below to certify this plan of care/treatment plan. Thank you. Provider Signature: Date: AND COAL TRANSPORT OPERATOR documented in this encounter Plan of Treatment Not on file documented as of this encounter Visit Diagnoses Diagnosis Paraplegia, unspecified (HCC)- Primary documented in this encounter Care Teams Caustics Loader Relationship Specialty Start Date End Date Cristobal Agustin MD PCP - General Gastroenterology 03/26/22 documented as of this encounter
--- OUTSIDE RECORDS SUMMARY | 2024-03-26 05:40 | XMS_ITS | Encounter Summary ---
Author Organization [facility] Healthcare Address [address] [place] [address] Care Team Providers Care Consumer Educator Name Role Phone Cristobal Agustin MD Primary Care Provider Reason for Visit * Reason Comments PT Treatment * Physical Therapy (Routine) - Closed Specialty Diagnoses / Procedures Referred By Contac t Referred To Contact Physical Therapy Diagnoses Paraplegia, unspecified (HCC) Cristobal Agustin MD [address] [place] [phone] Phone: tel: fax: [facility] OP Physical Therapy [address] [place] [phone] Phone: tel: fax: Referral ID Status Reason Start Date Expiration Date V isits Requested Visits Authorized [id number] Closed Evaluate and Treat 08/27/2022 03/13/2023 6 [phone] Encounter Details Date Type Department Care Team (Late st Contact Info) Description 09/10/2022 10:00 AM CDT Therapy [facility] OP Physical Therapy [address] [place] [address] [phone] Ashley Jones PTA Paraplegia, unspecified (HCC) (Primary [...] on file Legal Sex Male 7:46 AM 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 Paraplegia, unspecified [...] and revised). 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 to pairer substandard // bars with Min A for knee [...] 10/08/22 Date Date Date Date Date 08/27/22 09/01/2208/282209/10/22 Visit Number 1 2 3 4 ADDITIONAL HEP SHEETS ISSUED Late for treatrment Nu Step (foot straps and knee straps) 10 min L4 L 4 10 min B LE attachments Stander X 12 min Standing frame x25 min Stander for 15 min Core Strengthening -half bosu sit ups -pertubations in all directions -pelvic tilts -ta bracing with resistance from therapist X 10 Long sitting Elbow to Elbow --- Long sitting catch ---- Partial sit ups forward and diagonals ------ T System: Trunk rotation Red x10 left and right ea Pallof Push Blue x10 ea Scapular Strengthening -rows -shoulder extensions -lat pull downs -Chest press Transfers Progress Note/Re-Cert * Ashley Jones PTA - 09/10/2022 10:00 AM CDT Images from the original note were not included. Physical Therapy Visit/Daily Note 09/10/2022 Solo Miller 1985 ICD-9-CM ICD-10-CM 1. Paraplegia, unspecified ([facility]) 344.1 G82.20 Subjective: Pt reports that he has nothing new to report. Pt is reporting continued difficulty with standing because or paralysis. Pt uses a stander at home, but it is not like the one he uses here in PT. Pain today is 2/10. (Low back, leg and abdominal pain) pt reports that his right side is stronger than his left side. Objective: Objective Measurement/Observation: pt enters PT using a manual wheelchair. Pt is independent with transfers using a slide board or just his upper extremities . Pt presents with good tall sitting balance on the mat table Pt performed ex's in tall sitting (catch, elbow to elbow) followed by trunk strengthening ex's siting in his wheel chair using the T- Band system. Pt received 40 minutes of treatment today during this session. Specific exercises and treatment interventions are outlined on exercise worksheet document. Treatment Performed on This Visit: Manual Therapy (body part and techniques): NT Therapeutic Procedure/Exercise: standing in stander and trunk strengthening ex's on mat table Modalities: NT HEP given: sitting back extension (cat/camel) sitting in wheelchair. Patient education: muscle spasticity vs flaccidity Assessment: Patient works hard in PT. Patient demonstrates Bilat LE paralysis which is contributing to difficulty with standing. . Patient would benefit from additional skilled therapy services and demonstrates good prognosis to achieve stated goals. Goals Addressed This Visit: STGs Plan: Patient would benefit from the following modification on next visit: advance ex's as pt is able to tolerate. Therapy will continue to address these impairments in order to progress towards functional goals. Ashley Jones PTA [facility] ATTENTION PHYSICIAN If you are unable to [...] Primary documented in this encounter Care Teams Consumer Educator Relationship Specialty Start Date End Date Cristobal Agustin MD PCP - General Gastroenterology 03/26/22 documented as of this encounter
--- OUTSIDE RECORDS SUMMARY | 2024-03-26 05:40 | XMS_ITS | Encounter Summary ---
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 No call back received from Britt 11/06/2021 ??2:52 PM Tatyana Murphy documented in this encounter Plan of Treatment Not on file documented as of this encounter Visit Diagnoses Not on filedocumented in this encounter Care Teams Senior Behavioral Scientist Relationship Specialty Start Date End Date Clinic, Pcp PCP - General 07/14/16 03/25/22 documented as of this encounter
--- OUTSIDE RECORDS SUMMARY | 2024-03-26 05:40 | XMS_ITS | Clinical Summary ---
Author Organization [facility] Address [address] [place] [address]. [place], [place] [address] [place] [phone] Care Team Providers Care Personal Financial Planner Name Role Phone Ezra Peralta Primary Care Provider + Allergies No known active allergies Social History Tobacco Use Types Packs/Day Years [...] PM CDT Body Mass Index - - Plan of Treatment Health Maintenance Due Date Last Done Comments Annual Physical 1986 Pneumococcal Vaccine: Pediatrics (0 to 5 Years) and At-Risk Patients (6 to 64 Years) (1 of 2 - PCV) 1989 Hepatitis C 2001 Hepatitis B Vaccines (1 of 3 - 19+ 3-dose series) 2002 COVID-19 Vaccine (2023-2 5 season) 2023 Influenza Adult (#1) 2023 DTaP, Tdap and Td Vaccines ( 3 - Td or Tdap) 09/28/2031 09/27/2021, 07/06/2018 HPV Vaccines Aged Out No longer eligi ble based on patient's age to complete this topic Meningococcal Vaccine Aged Out No andrew luis eligible based on patient's age to complete this topic RSV Immunizations Under 20 Months Aged Out No longer eligible b ased on patient's age to complete this topic Insurance [facility] Care Teams Personal Financial Planner Relationship Specialty Start Date End Date Ezra Peralta PA PCP - General PHYSICIAN STEEL TESTER 12/20/21
--- OUTSIDE RECORDS SUMMARY | 2024-03-26 05:40 | XMS_ITS | Encounter Summary ---
Author Organization [facility] Healthcare Address [address] [place] [address] Care Team Providers Care Environmental Remediation Consultant Name Role Phone Clinic, Pcp Primary Care Provider Unavailabl e Reason for Visit * Reason Comments PT Treatment Encounter Details Date Type Department Care Team (Late st Contact Info) Description 03/12/2022 10:00 AM TELEVISION NEWS ANCHOR Therapy [facility] OP Physical Therapy [address] [place] [phone] Zeenat Mckeon PTA Paraplegia, unspecified (HCC) (Primary Dx) Social History Tobacco Use Types Packs/Day Years Used Date Smoking Tobacco: Never Assessed Sex and Gender Information Value Date Recorded Sex Assigned at Not on file Legal Sex Male 7:46 AM TELEVISION NEWS ANCHOR Gender Identity Not on file Sexual Orientation Not on file documented as of this encounter Progress Notes * Zeenat Mckeon PTA - 03/12/2022 10:00 AM CST ICD-9-CM ICD-10-CM 1. Paraplegia, unspecified (HCC) 344.1 G82.20 Precautions: paraplegia with T12 SCI PT Eval Date: 02/26/22 Orders : 04/15/22 Cert Expires: 04/15/22 Progress Note Due: 03/28/22 Date Date Date Date Date 02/26/22 03/12/22 Visit Number 1 2 Exercises/Treatment Sitting balance without UE support and reaching activities outside [place] Attempted requires max A fortrunk control Nu step for UE assisted ROM of LE L5 w/ B foot straps and thigh supports x10 min Transfers W/ supervision W/c safety Indep in new w/c Sit to supine and supine to sit Used leg steam shovel oiler for supine to sit, unable to use it for sit to supine Self DF stretch With leg steam shovel oiler Progress Note/Re-Cert Goals: Short-Term Goals: to be met by [...] walk, shorter goal is for sitting balance. VISION NEWS ANCHOR * Zeenat Mckeon PTA - 03/12/2022 10:00 AM CST Images from the original note were not included. Physical Therapy Daily Visit Report 03/12/2022 Solo Miller 1985 ICD-9-CM ICD-10-CM 1. Paraplegia, unspecified (HCC) 344.1 G82.20 Subjective: Pt reports he is having pain in his abdomen from constipation. Pt states he takes stool softeners. Pt often has mid to lower back pain although that is not bothering him this date. Pt is reporting continued difficulty with balance when not sitting in his chair such as sitting on EOB. Pt states he just got his new w/c yesterday. Pt states he is indep with transfers at home using sliding board. Pt states he would like to try using the standing frame. Pain today is 6-7/10 in abdomen. Changes since last visit include none reported. Objective: Objective Measurement/Observation: Pt presents in manual w/c. Pt is indep with w/c use. Pt completed transfers from w/c to/from nustep and w/c to/from mat table with use of sliding board. Pt is able to set up sliding board and required CGA/SBA for safety. Pt tolerated nustep on L5 x10 min using BUE's with BLE's supported with foot straps and thigh supports. Pt sits EOB with support from B UE's. Worked on wt shifting in sitting and functional reaching tasks. Pt requires max assist for balance when not supported by UE's. Pt completed sit to supine and supine to sit w/ supervision. Pt manually puts legs on/off bed but does struggle. Pt was able to use a leg steam shovel oiler to improve lifting legs off bed to floor but was unable to use it to lift legs onto bed. Pt instructed in self DF stretching withgt belt or leg steam shovel oiler in supine. Pt's mother is present during therapy session. Specific exercises and treatment interventions are outlined on exercise worksheet document. Home Exercise Program: ongoing for sitting balance and LE ROM/stretching as able. Assessment: Patient tolerated today's treatment well and without incident. Pt has low and mid back pain when attempting sitting balance activities without UE support. Patient demonstrates decreased trunk control without use of BUE's in sitting which is contributing to difficulty with functional activities. Patient would benefit from additional skilled therapy services in order to address above deficits and return to prior level of function. Goals Addressed This Visit: STG's #2 and 4 and LTG #3. Plan: Patient would benefit from the following modification on next visit: per POC. Therapy will continue to address these impairments in order to progress towards functional goals. Zeenat Mckeon PTA [facility] Please sign below to certify this plan of care/treatment plan. Thank you. Provider Signature: Date: VISION NEWS ANCHOR documented in this encounter Plan of Treatment Not on file documented as of this encounter Visit Diagnoses Diagnosis Paraplegia, unspecified (HCC)- Primary documented in this encounter Care Teams Environmental Remediation Consultant Relationship Specialty Start Date End Date Clinic, Pcp PCP - General 07/14/16 03/25/22 documented as of this encounter
--- OUTSIDE RECORDS SUMMARY | 2024-03-26 05:40 | XMS_ITS | Encounter Summary ---
Author Organization [facility] Healthcare Address [address] [place] [address] Care Team Providers Care Edge Runner Name Role Phone Cristobal Agustin MD Primary Care Provider Reason for Visit * Reason Comments PT Treatment * Physical Therapy (Routine) - Closed Specialty Diagnoses / Procedures Referred By Contac t Referred To Contact Physical Therapy Diagnoses Paraplegia, unspecified (HCC) Cristobal Agustin MD [address] [place] [id number] Phone: tel: fax: [facility] OP Physical Therapy [address] [place] [id number] Phone: tel: fax: Referral ID Status Reason Start Date Expiration Date V isits Requested Visits Authorized [id number] Closed Evaluate and Treat 08/27/2022 03/13/2023 6 99 Encounter Details Date Type Department Care Team (Late st Contact Info) Description 10/15/2022 10:45 AM CDT Therapy [facility] OP Physical Therapy [address] [place] [id number] Jerson Vick, MEDICAL SCIENCE LIAISON Paraplegia, complete (HCC) (Primary Dx) Social History Tobacco Use Types Packs/Day Years Used Date Smoking Tobacco: Every Day Cigarettes Smokeless Tobacco: Never PHQ-2 Answer Date Recorded PHQ-2 Total Score (If total score is 3 or more points, staff should administer the PHQ-9) 2 04/27/2022 Sex and Gender Information Value Date Recorded Sex Assigned at Not on file Legal 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.21 CRISTOBAL AGUSTIN PT Diagnosis: Paraplegia Precautions: Paraplegia T12-L2 SCI [...] and revised). 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 to heavy line technician // bars with Min A for knee [...] : 10/08/22, 11-30-22 Date Date Date Date Date Date Date Date 08/282209/10/22 09/08/22 09/15/22 09/24/22 09/29/22 10-05-22 10-07-22 10/15/22 Visit Number [id number] [phone] 10 min late to appt ADDITIONAL HEP SHEETS ISSUED Late for treatrment UE bike performed, encouraged to try to acquire one for home Nu Step (foot straps and knee straps) L5 10 min arms and legs (Attachment) L5 10 min Arms and legs (attachments) NT Stander Standing frame x25 min Stander for 15 min Stand 20 min and did core and UE ex's (see below)Stand 20 min tubing and weighted ball for core strength (see below) 20 min Standing Frame: 15 min Standing Frame 15 min with 4# wtd ball and black theraband Standing frame 30 min Stander: T band rows Black x10 Black Rows Blue: pall of press Black: rows Pall of press bue Black: rows alf, and singles Cross pulls Rows, single rows, horiz abd, punch 20x each Rows, rows with ER 20x, Pallof press Stander: ball resistance 4 lbs ball: overhead Side to side diagonals 4 lbs ball 4 lbs ball overhead and diagonals 4# ball around back 5xE direction Overhead lift Diagonals 4# ball over head, press out, diagnols, and round about [place] ball around 10x, diagonals Arms crossed at chest for flexion/extension Forgot, did it on mat in short sitting and long sitting Core Strengthening -half bosu sit ups -pertubations in all directions -pelvic tilts -ta bracing with resistance from therapist Long sitting Elbow to Elbow --- Long sitting catch ---- Partial sit ups forward and diagonals ------ NT Long sitting, sit ups 10x with assist. Short sitting pt falls forward someone must heavy line technician front. Ball press ups over head, single rows 10x Perturbations in stander Seated: T System: Trunk rotation Red x10 left and right ea Pallof Push Blue x10 ea Nautilus: -Lat pulls -Rows -bench Biceps Diagonal up Lat 60 lbs Rows 80 lbs Bench 30 lbs Ea 20 lbs Bicep 10 lbs Diagonal 10 lbs Lat pulls 75# 30x Rows 80# 30x Biceps 50# 30x Lat pull dows 2x20 // BARS SIT TO STAND WITH BUE'S, Stand one min 3x STS // bars 3x with both hands on bars then moving the right hand to therapist shoulder to maintain stance Max Asst to take right hand off of //bar and place on therapist shoulder to increase pressure on BLE sliding board transfers indep Pt demonstrating transfers without sliding board today transfers without sliding board Progress Note/Re-[place] [facility] [place] Jerson Vick PTA - 10/15/2022 10:45 AM CDT Images from the original note were not included. Physical Therapy Visit/Daily Note 10/08/2022 Solo Miller 1985 ICD-9-CM ICD-10-CM 1. 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.21 CRISTOBAL AGUSTIN Subjective: Pt reports he is experiencing a lot of pain within his lower back. Pt reports he would like to start with the stander because it always helps relieve his back pain. Pain today is 7/10 Changes since last visit include none Objective: Objective Measurement/Observation: Pt performing transfers independently without cues. Pt limited by back pain with forward pertubations. Pt given cues to depress shoulderblades during RX. Pt given cues for form with lat pulldowns. Cues given for pallof press to target obliques in a stabilizing manner. Pt able to get a good cardio workout with the UE bike on L4 for 10 minutes. Specific exercises and treatment interventions are outlined on exercise worksheet document. Treatment Performed on This Visit: Manual Therapy (body part and techniques): none Therapeutic Procedure/Exercise:focused on standing in frame and performing exercises. Focused on cardio. Modalities:none HEP given: none Patient education:pt educated on an arm bike for home to work on cardio. Pt educated on keeping shoulderblades down during exercises Assessment: Patient tolerated today's treatment fairly, having some pain and able to decrease the pain. MEDICAL SCIENCE LIAISON didnot have an extra set of hands. Pt would benefit from an UE bike of some sort at home to allow his cardiovascular system to work. Patient demonstrates reduced muscle activation and control lower abdomin and trunk which is contributing to difficulty with sitting balance control. Patient would benefit from additional skilled therapy services and demonstrates good prognosis to achieve stated goals. Goals Addressed This Visit: STG 2,3, LTG 1,2,3 Plan: Patient would benefit from the following modification on next visit: continue POC Therapy will continue to address these impairments in order to progress towards functional goals. [facility] ATTENTION PHYSICIAN If you are unable [...] complete (HCC)- Primary documented in this encounter Care Teams Edge Runner Relationship Specialty Start Date End Date Cristobal Agustin MD PCP - General Gastroenterology 03/26/22 documented as of this encounter
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
--- OUTSIDE RECORDS SUMMARY | 2024-03-26 05:40 | XMS_ITS | Encounter Summary ---
Author Organization [facility] Address [address] [place] [address] Care Team Providers Care Teacher Of The Visually Impaired Name Role Phone Cristobal Agustin MD Primary Care Provider Reason for Visit * Reason Comments PT Treatment * Physical Therapy (Routine) - Closed Specialty Diagnoses / Procedures Referred By Contac t Referred To Contact Physical Therapy Diagnoses Paraplegia, unspecified (HCC) Cristobal Agustin MD [address] [place] [phone] Phone: tel: fax: [facility] OP Physical Therapy [address] [place] [phone] Phone: tel: fax: Referral ID Status Reason Start Date Expiration Date V isits Requested Visits Authorized [id number] Closed Evaluate and Treat 08/27/2022 03/13/2023 6 99 Encounter Details Date Type Department Care Team (Late st Contact Info) Description 09/24/2022 10:00 AM CDT Therapy [facility] OP Physical Therapy [address] [place] [phone] Ashley Jones PTA Paraplegia, unspecified (HCC) [...] on file 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 Physical Therapy Visit/Daily Note 09/24/2022 Solo Lewis Paul 1985 ICD-9-CM ICD-10-CM 1. Paraplegia, unspecified (HCC) 344.1 G82.20 Subjective: Pt is reports continued difficulty with standing because of paralysis. Pt ran out of pain meds and is experiencing increased low back and abdominal pain today. Pt plans to picking supervisor medication after PTtreatment. Pain today is 9/10 . (Low back and abdominal pain) Objective: Objective Measurement/Observation Pt arrived to PT in manual W/C. Pt is independent with transfers using the slide board. Pt performed trunk and core strengthening ex's while standing in the stander using t-band and weighted ball for resistance. Treatment finished with using NuStep. Pt received 43 minutes of treatment today during this session. Specific exercises and treatment interventions are outlined on exercise worksheet document. Treatment Performed on This Visit: Manual Therapy (body part and techniques): NT Therapeutic Procedure/Exercise: Pt used stander and Nustep today. Modalities: NT HEP given: pt reports doing seated back extensions in his wheelchair and performs long sitting coreex's at home Patient education: NT Assessment: Patient appeared tired today and was experiencing increased pain. Pt tolerated treatment fair to well (pt not as motivated because of pain) Patient demonstrates Bilat LE paralysis and core weakness. Patient would benefit from additional skilled therapy services and demonstrates good prognosis to achieve stated goals. Goals Addressed This Visit: STGs Plan: Patient would benefit from the following modification on next visit: Plan to use nautilus cables for upper extremity strengthening Therapy will continue to address these impairments in order to progress towards functional goals. Ashley Jones PTA [facility] ATTENTION PHYSICIAN If you are unable to electronically sign this document, please print this document and sign below to certify this plan of care/treatment plan. By signing this document, I certify that I have reviewedthis plan of care and support the treatment. Please fax back to . Thank you. Provider Signature: Date: * Ashley Jones PTA - 09/24/2022 10:00 AM CDT ICD-9-CM ICD-10-CM 1. Paraplegia, [...] and revised). 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 to knurling machine tender // bars with Min A for knee [...] to 10/08/22 Date Date Date Date Date Date 09/01/2208/282209/10/22 09/08/22 09/15/22 09/24/22 Visit Number 2 3 4 5 6 7 ADDITIONAL HEP SHEETS ISSUED Late for treatrment Nu Step (foot straps and knee straps) L 4 10 min B LE attachments L5 10 min arms and legs (Attachment) L5 10 min Arms and legs (attachments) Stander X 12 min Standing frame x25 min Stander for 15 min Stand 20 min and did core and UE ex's (see below) Stand 20 min tubing and weighted ball for core strength (see below) Stander: T band rows Black x10 Black Rows Blue: pall of press Stander: ball resistance 4 lbs ball: overhead Side to side diagonals 4 lbs ball Core Strengthening -half bosu sit ups -pertubations in all directions -pelvic tilts -ta bracing with resistance from therapist Long sitting Elbow to Elbow --- Long sitting catch ---- Partial sit ups forward and diagonals ------ NT T System: Trunk rotation Red x10 left and right ea Pallof Push Blue x10 ea Scapular Strengthening -rows -shoulder extensions -lat pull downs -Chest press NT Transfers Progress Note/Re-Cert documented in this encounter Plan of Treatment Not on file documented as of this encounter Visit Diagnoses Diagnosis Paraplegia, unspecified (HCC)- Primary documented in this encounter Care Teams Teacher Of The Visually Impaired Relationship Specialty Start Date End Date Cristobal Agustin MD PCP - General Gastroenterology 03/26/22 documented as of this encounter
--- OUTSIDE RECORDS SUMMARY | 2024-03-26 05:40 | XMS_ITS | Encounter Summary ---
Author Organization [facility] Address [address] [place] [address] Care Team Providers Care Chief Counsel Name Role Phone Clinic, Pcp Primary Care Provider Unavailabl e Reason for Visit * Reason Onset Date Comments OT Discharge 12/14/2021 Encounter Details Date Type Department Care Team (Late st Contact Info) Description 12/14/2021 Documentation [facility] [place] [address] Sharath Gonzalez OT OT Discharge Social History Tobacco Use Types Packs/Day Years Used Date Smoking Tobacco: Never Assessed Sex and Gender Information Value Date Recorded Sex Assigned at Not on file 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 Patient to verbalize and demonstrate understanding of outpatient OT treatment plan and schedule 2. Patient to complete home exercise program independently 3. Patient to verbalize energy conservation/fatigue management strategies independently 4. Patient to perform LE dressing with minimal assistance 5. Patient to perform UE dressing independently Additional information as available: Per PT; spoke with family and patient wishes to be discharged from therapy at this time. The patient has discontinued coming to therapy or has elected to not schedule additional appointments. Plan is to discontinue occupational therapy treatment. Sharath Gonzalez OT documented in this encounter Plan of Treatment Not on file documented as of this encounter Visit Diagnoses Diagnosis Paraplegia, complete (HCC)- Primary documented in this encounter Care Teams Chief Counsel Relationship Specialty Start Date End Date Clinic, Pcp PCP - General 07/14/16 03/25/22 documented as of this encounter
--- OUTSIDE RECORDS SUMMARY | 2024-03-26 05:40 | XMS_ITS | Encounter Summary ---
Author Organization [facility] Address [address] [place] [address] Care Team Providers Care Right Of Way Worker Name Role Phone Cristobal Agustin MD Primary Care Provider Encounter Details Date Type Department Care Team (Late st Contact Info) Description 11/17/2022 Documentation [facility] Physical [facility] [address] [address] Cynthia Salvador, PT Social History Tobacco Use Types Packs/Day Years Used Date Smoking Tobacco: Every Day Cigarettes Smokeless Tobacco: Never PHQ-2 Answer Date Recorded PHQ-2 Total Score (If total score is 3 or more points, staff should administer the PHQ-9) 2 04/27/2022 Sex and Gender Information Value Date Recorded Sex Assigned at Not on file 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 Gender Identity Not on file Sexual Orientation Not on file documented as of this encounter Progress Notes * Cynthia Salvador, PT - 11/17/2022 1:06 PM CDT RE-SENDING CONTINUATION ORDER FOR PHYSICAL THERAPY AND STANDING FRAME TO ORDERING PROVIDER FOR SIGNATURE THROUGH [employer], 2ND ATTEMPT documented in this encounter Plan of Treatment Not on file documented as of this encounter Visit Diagnoses Not on filedocumented in this encounter Care Teams Right Of Way Worker Relationship Specialty Start Date End Date Cristobal Agustin MD PCP - General Gastroenterology 03/26/22 documented as of this encounter
--- OUTSIDE RECORDS SUMMARY | 2024-03-26 05:40 | XMS_ITS | Encounter Summary ---
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 Gender Identity Not on file Sexual Orientation Not on file documented as of this encounter Plan of Treatment Not on file documented as of this encounter Procedures Procedure Name Priority Date/Time Associated Diagnosis Comments CS GLUCOSE Routine Gen Lab 11/09/2021 5:34 AM CDT EGFR Routine Gen Lab 11/09/2021 5:34 AM CDT DIFFERENTIAL AUTO Routine Gen Lab 11/09/2021 5:3 4 AM CDT COMPREHENSIVE METABOLIC PANEL WITHOUT GLUCOSE (OUTREACH) Routine Gen Lab 11/09/2021 5:34 AM CDT CBC WITH AUTO DIFFERENTIAL Routine Gen Lab 11/09/2021 5:34 AM CDT documented in this encounter Results * eGFR (11/09/2021 5:34 AM CDT) eGFR >90 90 - 130 mL/min/1. 73 m2 [facility] Comment: Interpretive Data Reference Interval Normal ?>/= 90 mL/min/1.73m2 Mildly decreased* ? 60 - 89 mL/min/1.73m2 Mildly to moderately decreased ?45 - 59 mL/min/1.73m2 Moderately to severely decreased ??30 - 44 mL/min/1.73m2 Severely decreased ?15 - 29 mL/min/1.73m2 Kidney Failure ?< 15 ??mL/min/1.73m2 *Relative to young adult level Estimated glomerular filtration rate is determined by the 2020 CKD-EPI equation recommended by the National Kidney Foundation (A Unifying Approach to GFR Estimation: Recommendations of the NKF-ASK Task Force on Reassessing the Inclusion of Race in Diagnosing Kidney Disease, JASN 2020). The CKD-EPI equation should not be used for patients with unstable renal function and has not been validated in children and those over 70. Current interpretive data was last reviewed 2021. Blood 11/09/2021 5:34 AM CDT 11/09/2021 6:31 AM CDT us Notinfile Unknown LAB BLOOD ORDERABLES Final Res ult [facility] [place] [address] * (ABNORMAL) Comprehensive metabolic panel, without glucose (Outreach) (11/09/2021 5:34 AM CDT) Sodium 139 135 - 145 mmol/L [facility] Potassium, pl 4.2 3.3 - 4.9 mmol/L [facility] Chloride 101 97 - 110 mmol/L [facility] CO2 27 22 - 32 mmol/L [facility] Anion gap 11 2 - 15 mmol/L [facility] BUN 16 8 - 25 mg/dL [facility] Creatinine 0.93 0.80 - 1.30 mg/dL [facility] Calcium 9.7 8.5 - 10.3 mg/dL [facility] Protein, pl 7.1 6.5 - 8.5 g/dL [facility] Albumin 3.6 3.5 - 5.0 g/dL [facility] Bilirubin, total 0.2 0.1 - 1.2 mg/dL [facility] Alk phos 128 40 - 130 Units/L [facility] AST 57(H) 10 - 50 Units/L [facility] ALT 136(H) 7 - 55 Units/L [facility] Blood 11/09/2021 5:34 AM CDT 11/09/2021 6:22 AM CDT us Notinfile Unknown LAB BLOOD ORDERABLES Final Res ult Performing Organization Address [facility] de Phone Number [facility] Department [place] [address] * CS GLUCOSE (11/09/2021 5:34 AM CDT) [facility] Signature Glucose 95 70 - 199 mg/dL [facility] Comment: Interpretive Data Fasting glucose >/= 126 mg/dl is diagnostic for diabetes. ?? Fasting is defined as no caloric intake for at least 8 hours. Fasting glucose between 100 mg/dl to 125 mg/dl is diagnostic of prediabetes. In a patient with classic symptoms of hyperglycemia or hyperglycemic crisis, a random glucose >/= 200 mg/dl is diagnostic for diabetes. In the absence of unequivocal hyperglycemia, results should be confirmed by repeat testing. The classification and Diagnosis of Diabetes Diabetes Care 2017;40 (Suppl. 1):S11. Current interpretive data was last revised 2017. Blood 11/09/2021 5:34 AM CDT 11/09/2021 6:22 AM CDT us Notinfile Unknown LAB BLOOD ORDERABLES Final Res ult Performing Organization Address [facility] Co de Phone Number [facility] Department [place] [address] * Differential, auto (11/09/2021 5:34 AM CDT) Neutrophil abs 2.6 1.7 - 6.5 K/cumm [facility] Imm gran abs 0.0 0.0 - 0.1 K/cumm [facility] Lymphocyte abs 1.6 0.8 - 3.3 K/cumm [facility] Monocyte abs 0.5 0.2 - 0.8 K/cumm [facility] Eosinophil abs 0.1 0.0 - 0.5 K/cumm [facility] Basophil abs 0.0 0.0 - 0.1 K/cumm [facility] Neutrophil pct 52.4 % [facility] Comment: Interpretive Data Percent cell count reference ranges are not reported, since discordance with absolute values may lead to misinterpretation of CBC data. Current Interpretive Data was last revised on 2017. Imm gran pct 0.4 % [facility] Comment: Interpretive Data Percent cell count reference ranges are not reported, since discordance with absolute values may lead to misinterpretation of CBC data. Current Interpretive Data was last revised on 2017. Lymphocyte pct 33.5 % [facility] Comment: Interpretive Data Percent cell count reference ranges are not reported, since discordance with absolute values may lead to misinterpretation of CBC data. Current Interpretive Data was last revised on 2017. Monocyte pct 10.2 % [facility] Comment: Interpretive Data Percent cell count reference ranges are not reported, since discordance with absolute values may lead to misinterpretation of CBC data. Current Interpretive Data was last revised on 2017. Eosinophil pct 2.9 % [facility] Comment: Interpretive Data Percent cell count reference ranges are not reported, since discordance with absolute values may lead to misinterpretation of CBC data. Current Interpretive Data was last revised on 2017. Basophil pct 0.6 % [facility] Comment: Interpretive Data Percent cell count reference ranges are not reported, since discordance with absolute values may lead to misinterpretation of CBC data. Current Interpretive Data was last revised on 2017. Blood 11/09/2021 5:34 AM CDT 11/09/2021 6:22 AM CDT us Notinfile Unknown LAB BLOOD ORDERABLES Final Res ult Performing Organization Address [facility] Co de Phone Number [facility] [place] [employer] [place] [address] * (ABNORMAL) CBC with auto differential (11/09/2021 5:34 AM CDT) Pathologist [facility] WBC 4.9 3.8 - 9.9 K/cumm [facility] Hgb 11.3(L) 13.0 - 17.5 g/dL [facility] Hct 34.8(L) 38.9 - 50.3 % [facility] Plt 312 150 - 400 K/cumm [facility] MPV 10.4 9.1 - 12.3 fL [facility] RBC 3.85(L) 4.30 - 5.80 M/cumm [facility] MCV 90.4 81.3 - 96.4 fL [facility] MCH 29.4 27.1 - 33.3 pg [facility] MCHC 32.5 32.3 - 35.7 g/dL [facility] RDW CV 15.7(H) 11.1 - 14.9 % [facility] RDW SD 51.9(H) 35.7 - 48.1 fL [facility] NRBC abs 0.00 0.00 - 0.01 K/cumm [facility] Blood 11/09/2021 5:34 AM CDT 11/09/2021 6:22 AM CDT us Notinfile Unknown LAB BLOOD ORDERABLES Final Res ult Performing Organization Address [facility]/ZIP Co de Phone Number [facility] [employer] [place] [address] documented in this encounter Visit Diagnoses Not on filedocumented in this encounter Care Teams Health Science Writer Relationship Specialty Start Date End Date Clinic, Pcp PCP - General 07/14/16 03/25/22 documented as of this encounter
--- OUTSIDE RECORDS SUMMARY | 2024-03-26 05:40 | XMS_ITS | Encounter Summary ---
Author Organization [facility] Healthcare Address [address] [place] [address] Care Team Providers Care Aoc Plans Intelligence Officer Chief Name Role Phone Cristobal Agustin MD Primary Care Provider Reason for Visit * Reason Comments PT Treatment * Physical Therapy (Routine) - Closed Specialty Diagnoses / Procedures Referred By Contac t Referred To Contact Physical Therapy Diagnoses Paraplegia, unspecified (HCC) Cristobal Agustin MD [address] [place] [id number] Phone: tel: fax: [facility] OP Physical Therapy [address] [place] [address] Phone: tel: fax: Referral ID Status Reason Start Date Expiration Date V isits Requested Visits Authorized [id number] Closed Evaluate and Treat 08/27/2022 03/13/2023 6 99 Encounter Details Date Type Department Care Team (Late st Contact Info) Description 10/22/2022 10:45 AM CDT Therapy [facility] OP Physical Therapy [address] [place] [id number] Dre Napier PTA Paraplegia, unspecified (HCC) [...] on file 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 Paraplegia, unspecified (HCC) 344.1 G82.20 CRISTOBAL AGUSTIN PT Diagnosis: Paraplegia Precautions: Paraplegia [...] and revised). 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 with Min A for knee [...] 10/08/22, 11-30-22 Date Date Date Date date date 09/29/22 10-05-22 10-07-22 10/15/22 10-19-22 10-22-22 Visit Number [id number] 11 12 10 min late to appt 5 min late ADDITIONAL HEP SHEETS ISSUED UE bike performed, encouraged to try to acquire one for home UBE 10 min Level 6 Nu Step (foot straps and knee straps) NT L6 10 min with attachments Stander 20 min Standing Frame: 15 min Standing Frame 15 min with 4# wtd ball and black theraband Standing frame 30 min Standing frame 15 min Standing frame 20 min Stander: T band rows Black: rows Pall of press bue Black: rows alf, and singles Cross pulls Rows, single rows, horiz abd, punch 20x each Rows, rows with ER 20x, Pallof press Rows,rows with ER 20x, Pallof press Rows, rows with ER 20x, Pallof press Stander: ball resistance 4 lbs ball overhead and diagonals 4# ball around back 5xE direction Overhead lift Diagonals 4# ball over head, press out, diagnols, and round about [place] ball around 10x, diagonals4# ball over head, press out, diagnols, and round about Arms crossed at chest for flexion/extension Forgot, did it on mat in short sitting and long sitting Core Strengthening -half bosu sit ups -pertubations in all directions -pelvic tilts -ta bracing with resistance from therapist Long sitting, sit ups 10x with assist. Short sitting pt falls forward someone must country printer apprentice front. Ball press ups over head, single [...] today transfers without sliding board Progress Note/Re-Cert [facility] * Dre Napier PTA - 10/22/2022 10:45 AM CDT Images from the original note were not included. Physical Therapy Visit/Daily Note 10/22/2022 Solo Miller 1985 ICD-9-CM ICD-10-CM 1. Paraplegia, unspecified (HCC) 344.1 G82.20 Subjective: Pt reported that he is having moderate pain in his lowback. Patient reports continued difficulty with increasing joint pain with lying and sitting for long periods of time. Feels that the standing frame helps to decrease his back pain. Pain today is 5/10 . (Low back and abdominal pain) Objective: Objective Measurement/Observation Pt arrived to PT in manual W/C . Pt is independent with transfersw/o use of sliding board. Pt performed trunk and core strengthening ex's while standing in the stander using t-band for resistance. Ended with Nu-step for LE ROM and UE strengthening. Patient 5 minutes late for appointment. Specific exercises and treatment interventions are outlined [...] towards functional goals. Dre Napier PTA [facility] Services ATTENTION PHYSICIAN If you [...] Primary documented in this encounter Care Teams Aoc Plans Intelligence Officer Chief Relationship Specialty Start Date End Date Cristobal Agustin MD PCP - General Gastroenterology 03/26/22 documented as of this encounter
--- OUTSIDE RECORDS SUMMARY | 2024-03-26 05:40 | XMS_ITS | Encounter Summary ---
Author Organization [facility] Healthcare Address [address] [place] [address] Care Team Providers Care Rn Procedure Name Role Phone Cristobal Agustin MD Primary Care Provider Reason for Visit * Reason Comments PT Treatment * Physical Therapy (Routine) - Closed Specialty Diagnoses / Procedures Referred By Contac t Referred To Contact Physical Therapy Diagnoses Paraplegia, unspecified (HCC) Cristobal Agustin MD [address] [place] [phone] Phone: tel: fax: [facility] OP Physical Therapy [address] [place] [phone] Phone: tel: fax: Referral ID Status Reason Start Date Expiration Date V isits Requested Visits Authorized [id number] Closed Evaluate and Treat 08/27/2022 03/13/2023 6 99 Encounter Details Date Type Department Care Team (Late st Contact Info) Description 10/28/2022 10:45 AM CDT Therapy [facility] OP Physical Therapy [address] [place] [id number] Kimberlee Pack WRAPPER SHEETER Paraplegia, unspecified (HCC) (Primary Dx) Social History Tobacco Use Types Packs/Day Years Used Date Smoking Tobacco: Every Day Cigarettes Smokeless Tobacco: Never PHQ-2 Answer Date Recorded PHQ-2 Total Score (If total score is 3 or more points, staff should administer the PHQ-9) 2 04/27/2022 Sex and Gender Information Value Date Recorded Sex Assigned at Not on file 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 Paraplegia, [...] and revised). 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 for knee [...] 11-30-22 Date Date date date date Date 10-07-22 10/15/22 10-19-22 10-22-22 10-26-22 10/28/22 Visit Number [id number] 13 14 10 min late to appt 5 min late ADDITIONAL HEP SHEETS ISSUED UE bike performed, encouraged to try to acquire one for home UBE 10 min Level 6 Nu Step (foot straps and knee straps) L6 10 min with attachments L6 10 min with attachments L6 x 10min with attachments Stander Standing Frame 15 min with 4# wtd ball and black theraband Standing frame 30 min Standing frame 15 min Standing frame 20 min Standing frame 25 min Standing frame 25 min Stander: T [...] head, press out, diagnols, and round about [place] ball [id number], diagonals 4# ball over head, press out, [...] Short sitting pt falls forward someone must biology adjunct instructor front. Ball press ups over head, single rows 10x Perturbations in stander Seated: T System: Trunk rotation Pallof Push X10 reps Nautilus: -Lat pulls -Rows -bench Biceps Diagonal [...] 10 ea Standing weight shifting through hips sliding board transfers Pt demonstrating transfers without sliding board today transfers without sliding board Progress Note/Re-Cert * Kimberlee Pack PTA - 10/28/2022 10:45 AM CDT Images from the original note were not included. Physical Therapy Visit/Daily Note 10/28/2022 Solo Miller 1985 ICD-9-CM ICD-10-CM 1. Paraplegia, unspecified (HCC) 344.1 G82.20 Subjective: Pt reports today is a better today. Pt states he's noticed weather can make a difference on how hisback feels but then some days with therapy exercises is helps and other days it seems to make it worse. Pain today is 6/10 . (Low back and abdominal pain) Objective: Objective Measurement/Observation Pt arrived to PT in manual W/C . Pt is independent with transfersw/o use of sliding board. Pt performed trunk and core strengthening ex's while standing in the stander using t-band for resistance. Specific exercises and treatment interventions are outlined on exercise worksheet document. Treatment Performed on This Visit: Manual Therapy (body part and techniques): NT Therapeutic Procedure/Exercise: trunk stability, core and UE strengthening Modalities: none HEP given: none Patient education: para groups and activity in STL Assessment: Patient tolerates PT exercises very well today. Pt receptive to feedback, suggestions, and education of activities to help him mentally and physically. Patient demonstrates Bilat LE paralysis and core weakness. Pt feels like his core musculature is getting stronger because he has better control of his trunk when performing ex's. Patient would benefit from additional skilled therapy services and demonstrates good prognosis to achieve stated goals. Goals Addressed This Visit: LTGs Plan: Patient would benefit from the following modification on next visit: cont with current exercises Therapy will continue to address these impairments in order to progress towards functional goals. Kimberlee Pack PTA [facility] Rehabilitation Services ATTENTION PHYSICIAN If you [...] Primary documented in this encounter Care Teams Rn Procedure Relationship Specialty Start Date End Date Cristobal Agustin MD PCP - General Gastroenterology 03/26/22 documented as of this encounter
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
--- OUTSIDE RECORDS SUMMARY | 2024-03-26 05:40 | XMS_ITS | Encounter Summary ---
Author Organization [facility] Healthcare Address [address] [place] [address] Care Team Providers Care Farm Machinery Erector Name Role Phone Cristobal Agustin MD Primary Care Provider Reason for Visit * Reason Comments PT Treatment Encounter Details Date Type Department Care Team (Late st Contact Info) Description 04/02/2022 12:45 PM NATURAL RESOURCE MANAGER Therapy [facility] OP Physical Therapy [address] [place] [phone] Lorrie Pfeiffer, Zeenat Higginbotham PTA Paraplegia, unspecified (HCC) (Primary Dx) Social History Tobacco Use Types Packs/Day Years Used Date Smoking Tobacco: Never Assessed Sex and Gender Information Value Date Recorded Sex Assigned at Not on file Legal Sex Male 7:46 AM NATURAL RESOURCE MANAGER Gender Identity Not on file Sexual Orientation Not on file documented as of this encounter Progress Notes * Zeenat Mckeon PTA - 04/02/2022 12:45 PM CST ICD-9-CM ICD-10-CM 1. Paraplegia, unspecified (HCC) 344.1 G82.20 Precautions: paraplegia with T12 SCI PT Eval Date: 02/26/22 Orders : 04/15/22 Cert Expires: 04/15/22 Progress Note Due: 03/28/22 Date Date Date Date Date 02/26/22 03/12/22 03/19/22 03/26/22 04/02/22 Visit Number 1 2 3 4 5 Exercises/Treatment Sitting balance without UE support and reaching activities outside [place] Attempted requires max A fortrunk control Nu step for UE assisted ROM of LE L5 w/ B foot straps and thigh supports x10 min L5 x10 min with B foot straps and B thigh supports Seat #10 B foot and thigh straps X 10 min Transfers W/ supervision Supervision with sliding board. Transfers between basic surface like mat<>w/c with SBA, transfers onto PT equipment with CGA/min assist due to angle of transfer, all with sliding board. Transfers between w/c and standing frame w/ CGA using sliding board W/c safety Indep in new w/c Indep self propels. Independent and demonstrates safely. Sit to supine and supine to sit Used leg printed circuit boards contact printer for supine to sit, unable to use it for sit to supine Self DF stretch With leg printed circuit boards contact printer Standing frame Initiated. Pt completed self raising [...] standing frame with use of chest strap Standing frame w/ waist strap only. Progress Note/Re-Cert [facility] Goals: Short-Term Goals: to [...] walk, shorter goal is for sitting balance. RAL RESOURCE MANAGER * Zeenat Mckeon PTA - 04/02/2022 12:45 PM CST Images from the original note were not included. Physical Therapy Daily Visit Report 04/02/2022 Solo Miller 1985 ICD-9-CM ICD-10-CM 1. Paraplegia, unspecified (HCC) 344.1 G82.20 Subjective: Pt reports mild pain in lower back this date. Pt states he took pain meds prior to therapy. Pt states he has been using his electric pedal bike at home. Changes since last visit include none reported. Objective: Objective Measurement/Observation: Pt presents in manual w/c. Pt is indep with w/c use. Pt was provided min A with setting up sliding board and required CGA/SBA for safety during transfer. Pt is ableto pull out sliding board indep. Pt transferred to/from standing frame with sliding board with CGA/SBA. Pt remained in standing frame x20 min. Pt is able to stand using only lap strap not chest support. Pt sat EOB working on core and trunk stability without UE assist. Pt was able to sit unsupportedand perform scap rows with orange band. Initiated gentle core in sitting with pt leaning back against therapist and pulling fwd. Pt instructed in seated pushups in doorway and sitting fwd presses with green band looped around back of w/c. Specific exercises and treatment interventions are outlined on exercise worksheet document. Home Exercise Program: ongoing for sitting balance and LE ROM/stretching as able, check into home standing frame Assessment: Patient tolerated today's treatment well and without incident. Pt had less LBP in sitting this dateand had increased trunk control. Patient demonstrates decreased trunk control without use of BUE's in sitting which is contributing to difficulty with functional activities. Patient would benefit from additional skilled therapy services in order to address above deficits and return to prior level of function. Goals Addressed This Visit: STG's #3 and 4. Plan: Patient would benefit from the following modification on next visit: per POC. Therapy will continue to address these impairments in order to progress towards functional goals. Zeenat Mckeon, [facility] Please sign below to certify this plan of care/treatment plan. Thank you. Provider Signature: Date: P RAL RESOURCE MANAGER documented in this encounter Plan of Treatment Not on file documented as of this encounter Visit Diagnoses Diagnosis Paraplegia, unspecified (HCC)- Primary documented in this encounter Care Teams Farm Machinery Erector Relationship Specialty Start Date End Date Cristobal Agustin MD PCP - General Gastroenterology 03/26/22 documented as of this encounter
--- OUTSIDE RECORDS SUMMARY | 2024-03-26 05:40 | XMS_ITS | Encounter Summary ---
Author Organization [facility] Healthcare Address [address] [place] [address] Care Team Providers Care Soa Integration Architect Name Role Phone Cristobal Agustin MD Primary Care Provider Reason for Visit * Reason Comments PT Progress Note * Physical Therapy (Routine) - Closed Specialty Diagnoses / Procedures Referred By Contac t Referred To Contact Physical Therapy Diagnoses Paraplegia, unspecified (HCC) Cristobal Agustin MD [address] [place] [phone] Phone: tel: fax: [facility] OP Physical Therapy [address] [place] [address] Phone: tel: fax: Referral ID Status Reason Start Date Expiration Date V isits Requested Visits Authorized [id number] Closed Evaluate and Treat 08/27/2022 03/13/2023 6 99 Encounter Details Date Type Department Care Team (Late st Contact Info) Description 10/05/2022 9:00 AM CDT Therapy [facility] OP Physical Therapy [address] [place] [phone] Augustina Au, SHIMON Paraplegia, complete (HCC) (Primary Dx) Social History Tobacco Use Types Packs/Day Years Used Date Smoking Tobacco: Every Day Cigarettes Smokeless Tobacco: Never PHQ-2 Answer Date Recorded PHQ-2 Total Score (If total score is 3 or more points, staff should administer the PHQ-9) 2 04/27/2022 Sex and Gender Information Value Date Recorded Sex Assigned at Not on file 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 Re-Certification/Physical Therapy Progress Note 10/05/2022 Solo A Paul 1985 ICD-9-CM ICD-10-CM 1. 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.21 CRISTOBAL AGUSTIN Subjective: Pt reports he feels like he is progressing well with standing in the frame, exercising in the frameand using the equipment. Pt is reporting continued difficulty with transfers and standing with support at home. Pain today is low today, pt took pain meds this morning.. Changes since last visit include feeling more stable in the shower with reaching activities. Objective: Objective Measurement/Observation: TRANSFERS: Sliding board transfer is independent. Pt requires the board for support. Pt must move both legs with UE's to position them. STANDING BALANCE: pt positioned in the // bars to work on sit to stand using BUE and support of therapist. Pt is strong in his UE's and can lift himself up with deadlift to standing for 1 min. PT instructed pt to let go with the right upper extremity from // bar to therapists shoulder and attempt to hold self up with more weight on legs. Pt is able to assist minimally with some support on legs, without a full buckle immediately. Pt can assist with this stand with left hand on // bar and right hand on shoulder of therapist for 15 to 20 seconds. Pt requires max support of therapist in this position. 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 Pt performs diagonals, bilateral UE, and Single UE activities for abdominal strengthening and core activation. Pt has difficulty crossing arms at chest and flexing spine and returning to upright extension ind ependently. Pt is able to do this 10x very slowly. Specific exercises and treatment interventions are outlined on exercise worksheet document. Treatment Performed on This Visit: Manual Therapy (body part and techniques): none Therapeutic Procedure/Exercise:PT focuses on standing in standing frame and performing core strengthening and activation, ROM, reaching activities. Pt also performs transfers in // bars multiple times, standing for up to 1 min with assist progressing to slow arm pushups with feet on floor. Pt performs strengthening activities at the overhead bar for pull down, rows and bicep curls. Modalities:none HEP given:see exercise sheet Patient education: PT spoke with pt about using the [employer] [facility] [employer] for assistance with equipment, cars, home. Pt would benefit from having a manual w/c that has standing capabilities. The [employer] is a resource for pt and his family. PT recommends pt continue with PT 2x per week for 8 weeks. Assessment: Patient tolerated today's treatment very well. Patient demonstrates REDUCED TRUNK CONTROL AND PARAPLEGIA OF LE'S which is contributing to difficulty with TRANSFERS, WB, SITTING BALANCE REACHING OUTSIDE OF BASE OF SUPPORT. Patient would benefit from additional skilled therapy services and demonstrates good prognosis to achieve stated goals. Goals Addressed This Visit: STG 2,3, LTG 1,2,3 Plan: Patient would benefit from the following modification on next visit: BELT ON W/C TO KEEP TRUNK IN W/C WITH WEIGHT LIFTING UE'S. Pt would like to continue with // bar standing activities with use of BUE for support, and attempted WB on LE's. Pt feels like he should be able to progress with WB. Pt may need more education in regard to his functional return. Therapy will continue to address these impairments in order to progress towards functional goals. Pt is interested in a standing w/c for increased standing opportunities. PT recommends continuing PT 2x/wk for 8 weeks. Augustina Au, PT [facility] ATTENTION PHYSICIAN If you are unable to electronically sign this document, please print this document and sign below to certify this plan of care/treatment plan. By signing this document, I certify that I have reviewedthis plan of care and support the treatment. Please fax back to . Thank you. Provider Signature: Date: * Augustina Au, PT - 10/05/2022 9:00 AM CDT ICD-9-CM ICD-10-CM 1. Paraplegia, complete [...] and revised). 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 to land title examiner // bars with Min A for knee [...] 11-30-22 Date Date Date Date Date Date 08/282209/10/22 09/08/22 09/15/22 09/24/22 09/29/22 10-05-22 Visit Number 3 4 5 6 7 8 9 ADDITIONAL HEP SHEETS ISSUED Late for treatrment [...] below) 20 min Standing Frame: 15 min Stander: T band rows Black x10 Black Rows Blue: pall of press Black: rows Pall of press bue Black: rows alf, and singles Cross pulls Stander: ball resistance 4 lbs ball: overhead Side to side diagonals 4 lbs ball 4 lbs ball overhead and diagonals 4# ball around back 5xE direction Overhead lift Diagonals Arms crossed at chest for flexion/extension Core Strengthening -half bosu sit ups -pertubations in all directions -pelvic tilts -ta bracing with resistance from therapist Long sitting Elbow to Elbow --- Long sitting catch ---- Partial sit ups forward and diagonals ------ NT Seated: T System: Trunk rotation Red x10 left and right ea Pallof Push Blue x10 ea Nautilus: -Lat pulls -Rows -bench Biceps Diagonal up Lat 60 lbs Rows 80 lbs Bench 30 lbs Ea 20 lbs Bicep 10 lbs Diagonal 10 lbs Lat pulls 75# 30x Rows 80# 30x Biceps 50# 30x // BARS SIT TO STAND WITH BUE'S, Stand one min 3x Max Asst to take right hand off of //bar and place on therapist shoulder to increase pressure on BLE sliding board transfers indep transfers without sliding board Progress Note/Re-Cert [facility] documented in this encounter Plan of Treatment Not on file documented as of this encounter Visit Diagnoses Diagnosis Paraplegia, complete (HCC)- Primary documented in this encounter Care Teams Soa Integration Architect Relationship Specialty Start Date End Date Cristobal Agustin MD PCP - General Gastroenterology 03/26/22 documented as of this encounter
--- OUTSIDE RECORDS SUMMARY | 2024-03-26 05:40 | XMS_ITS | Continuity of Care Document ---
Author Organization [facility] [place] Address [address], [address] [place] [address] Assessment No assessment recorded. Plan of Treatment Reminders Order Date Submit Date Provider Last Modified By Organization Details Last Modified Time Details Appointments None recorded. Lab None recorded. Referral None recorded. Procedures None recorded. Surgeries None recorded. Imaging XR, kidney + ureter + bladder [facility] ([facility]), [address] [place], [address], 10:18:06 Medication Orders None recorded. Patient TargetsNo targets recorded. Patient Instructions Encounter Date Encounter Id Patient Instructions Last Modified By Organization Details Last Modified Time 01/04/2024 [id number] 1. I am going to send a prescription for oxybutynin because I think he is having some bladder pressure between voids 2. He will need a KUB and I need to do a yearly KUB to rule out stones 3. I told him that he should only treat infections that are symptomatic with fever chills or gross hematuria 4. If his KUB does not show any stones in the staff can just let him know the results of his KUB and I will see him in 1 year 5. He needs to take the oxybutynin XL 5 mg once a day for at least 1 month and then take it as needed 6. If it causes constipation then he needs to change his diet to regulate his bowels but right now he has daily bowel mo [email or web address] Not available 01/04/2024 16:51:46 Reason for Referral None Reported. Results Created Date Observation Date Name Description Value Unit Range Abnormal Flag Note LastModifiedBy Organization Detail LastModifiedTime 01/17/20 24 XR, kidne y + urete r + bladd er No observ ation record ed. [email or web address] [facility] ([facility] Sched[facility]) [address] [place], [address], 01/17/2024 10:20:30 Result Notes None recorded. Problems Name Problem SNOMED Code Status Onset Date Resolution Date Notes Provider Name and Address Organization Details Recorded Time Urinary tract infectious disease 76954259 Active 024 Pooja Brown CMA null, [employer] 4 09:27:25 Kidney stone 89853494 Active 024 Elsie Lebron null, [employer] 4 14:53:36 Neurogenic urinary bladder 423625452 Active 024 Eder Mcnamara MD [address] [facility], [facility] [address], [place], [address] [facility] [employer] 4 16:50:43 Problem Notes None recorded. Medical Equipment None Reported. Allergies No known drug allergies Medications Name Sig Start Date Stop Date Status Note LastModified by Organization Details LastModified Time ciprofloxacin 500 mg tablet TAKE ONE TABLET BY MOUTH EVERY TWELVE HOURS FOR 10 DAYS FOR INFECTION active Not Available Not Available No t Available cefuroxime axetil 500 mg tablet TAKE 1 TABLET BY MOUTH TWICE A DAY active Not Available Not Available No t Available pregabalin 300 mg capsule TAKE ONE CAPSULE BY MOUTH TWICE DAILY EVERY MORNING & EVENING active Not Available Not Available No t Available Vitals Date Recorded Heart rate Body temperature Oxygen saturation Oxygen saturation in Arterial blood by Pulse oximetry Systolic blood pressure Diastolic blood pressure Provider Name and Address Organization Details Last Updated DateTime 4 66 /min 98.1 [degF] 96 % 96 % 138 mm[Hg] 91 mm[Hg] Pooja Brown CMA [employer] 4 14:41:13 Social History None recorded. Functional Status None recorded. Mental Status None recorded. Family History Nothing Reported. Medical History No medical history recorded. Past Encounters Encounter ID Performer Location Encounter Start Date Encounter Closed Date Diagnosis/Indication Diagnosis SNOMED-CT Code Diagnosis ICD10 Code Diagnosis Note [id number] Eder Mcnamara MD [facility] [place] [address], [address] [place] [address] 01/04/2024 14:32:02 01/04/2024 15:12:07 Urinary tract infectious disease 18289076 N39.0 Kidney stone 56298620 N2 0.0 Neurogenic urinary bladder 941490285 N31.9 Health Concerns Section Related Observation LastModified by Organization Detai ls LastModified Time None Recorded Concern Status LastModified by Organization Details LastModified Time None Recorded Payers Encounter Date Sequence Insurance Name Policy Number Policy Jacome Covered Member ID Jacome Member ID Guarantor Name 01/04/2024 1 [employer] [place] (MEDICAID REPLACEMENT - HMO) Solo Miller [id number] Solo Miller
--- OUTSIDE RECORDS SUMMARY | 2024-03-26 05:40 | XMS_ITS | Encounter Summary ---
Author Organization [facility] Healthcare Address [address] [place] [address] Care Team Providers Care Credit Resolution Representative Name Role Phone Cristobal Agustin MD Primary Care Provider Reason for Visit * Reason Comments PT Treatment * Physical Therapy (Routine) - Closed Specialty Diagnoses / Procedures Referred By Contac t Referred To Contact Physical Therapy Diagnoses Paraplegia, unspecified (HCC) Cristobal Agustin MD [address] [place] [address] Phone: tel: fax: [facility] OP Physical Therapy [address] [place] [address] Phone: tel: fax: Referral ID Status Reason Start Date Expiration Date V isits Requested Visits Authorized [id number] Closed Evaluate and Treat 08/27/2022 03/13/2023 6 99 Encounter Details Date Type Department Care Team (Late st Contact Info) Description 10/08/2022 10:00 AM CDT Therapy [facility] OP Physical Therapy [address] [place] [address] Augustina Au, PT Paraplegia, complete (HCC) (Primary Dx) Social History Tobacco Use Types Packs/Day Years Used Date Smoking Tobacco: Every Day Cigarettes Smokeless Tobacco: Never PHQ-2 Answer Date Recorded PHQ-2 Total Score (If total score is 3 or more points, staff should administer the PHQ-9) 2 04/27/2022 Sex and Gender Information Value Date Recorded Sex Assigned at Not on file 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 Paraplegia, complete [...] and revised). 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 to digital marketing assistant // bars with Min A for knee [...] 08/282209/10/22 09/08/22 09/15/22 09/24/22 09/29/22 10-05-22 10-07-22 Visit Number 3 4 5 6 7 [...] with 4# wtd ball and black theraband Stander: T band rows Black x10 Black Rows Blue: pall of press Black: rows Pall of press bue Black: rows alf, and singles Cross pulls Rows, single rows, horiz abd, punch 20x each Stander: ball resistance 4 lbs ball: overhead [...] Short sitting pt falls forward someone must digital marketing assistant front. Ball press ups over head, single rows 10x Seated: T System: Trunk rotation Red x10 [...] today transfers without sliding board Progress Note/Re-Cert [facility] * Augustina Au, PT - 10/08/2022 10:00 AM CDT Images from the original note were not included. Physical Therapy Visit/Daily Note 10/08/2022 Solo Miller 1985 ICD-9-CM ICD-10-CM 1. 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.21 CRISTOBAL AGUSTIN Subjective: Pt reports he has been practicing sitting upright on bed in long sitting. reports they have been attempting standing at home with her support and another family members support. Pt is reporting continued difficulty with balancing sitting on edge of bed. Pain today is 3/10, LOW BACK. Changes since last visit include transferring more confidently at home with UE's and no sliding board. Pt states he thinks he has it down. Objective: Objective Measurement/Observation: pt transferring without sliding board more easily and safely. Ptchallenged today with all activities, especially short sitting EOB with BOSU ball behind for assisted sit ups. Sitting independently in long sitting with challenges. Specific exercises and treatment interventions are outlined on exercise worksheet document. Treatment Performed on This Visit: Manual Therapy (body part and techniques): none Therapeutic Procedure/Exercise:focused on standing in frame for 15-20 min, trunk and core strengthening, ROM of trunk, short sitting and long sitting, supported standing in // bars Modalities:none HEP given:cont same ex's at home. Patient education:pt given information on [employer] in [place]. Also reviewed information about [facility] [employer]. Assessment: Patient tolerated today's treatment without incident. Pt does not an extra dispensing lead for short sitting activities and supported standing in // bars. Pt's legs easily buckle and he can drop down. In short sitting on the edge of mat table pt falls forward and cannot stop himself. He is a fall risk and requires an additional person in front of him for safety. The overhead track system would be helpfulas well. Patient demonstrates reduced muscle activation and control lower abdomin and trunk which is contributing to difficulty with sitting balance control. Patient would benefit from additional skilled therapy services and demonstrates good prognosis to achieve stated goals. Goals Addressed This Visit: STG 2,3, LTG 1,2,3 Plan: Patient would benefit from the following modification on next visit: ADDITIONAL LENS GRINDER () and possible use of overhead track system for safety. Therapy will continue to address these impairments in order to progress towards functional goals. Augustina Au, PT [facility] ATTENTION PHYSICIAN If you are unable [...] Primary documented in this encounter Care Teams Credit Resolution Representative Relationship Specialty Start Date End Date Cristobal Agustin MD PCP - General Gastroenterology 03/26/22 documented as of this encounter
--- OUTSIDE RECORDS SUMMARY | 2024-03-26 05:40 | XMS_ITS | Clinical Summary ---
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 Gender Identity Not on file Sexual Orientation Not on file Obstetrics History Last Filed Vital Signs Vital Sign Reading Time Taken Comments Blood Pressure 130/84 04/27/2022 8:43 AM POLICY DIRECTOR Pulse 81 04/27/2022 8:43 AM POLICY DIRECTOR Temperature 36.8 ??C (98.2 ??F) 04/23/2020 8:10 AM CS T Respiratory Rate - - Oxygen Saturation 100% 04/23/2020 8:10 AM POLICY DIRECTOR Inhaled Oxygen Concentration - - Weight 76.2 kg (168 lb) 04/27/2022 8:43 AM POLICY DIRECTOR Height 175.3 cm (5' 9) 04/27/2022 8:43 AM POLICY DIRECTOR Body Mass Index 24.81 04/27/2022 8:43 AM POLICY DIRECTOR Plan of Treatment Health Maintenance Due Date Last Done Comments Hepatitis C Screening 1985 Prostate Cancer Screening-PSA 1983 Pneumococcal vaccine <65 (1 of 2 - PCV) 1989 Varicella Vaccines (1 of 2 - 13+ 2-dose series) 1996 Hepatitis B Screening 2001 Regular Well Visit/Exam 18-64 2001 Depression Screening 04/27/2023 04/27/2022 Influenza Vaccine (#1) 2023 DTaP/Tdap/Td Vaccine (3 - Td or Tdap) 09/28/2031 09/27/2021, 07/06/2018 HPV Vaccines Aged Out No longer eligi ble based on patient's age to complete this topic Insurance [facility] [facility] [employer] [facility] Member Subscriber Plan / Payer (Ef fective 2020-Present) Name:Solo Miller Relation to Subscriber:Self Name:Solo Miller Payer ID:1 (NAIC) Type:MEDICAID RISK OTHER Address: [address] [place] [id number] [employer] [facility] [facility] Care Teams Cooker Soda Relationship Specialty Start Date End Date Cristobal Agustin MD PCP - General Gastroenterology 03/26/22
--- OUTSIDE RECORDS SUMMARY | 2024-03-26 05:40 | XMS_ITS | Encounter Summary ---
Author Organization [facility] Healthcare Address [address] [place] [address] Care Team Providers Care Facility Sales And Admin Name Role Phone Clinic, Pcp Primary Care Provider Unavailabl e Reason for Visit * Reason Onset Date Comments Patient Status 12/08/2021 Encounter Details Date Type Department Care Team (Late st Contact Info) Description 12/08/2021 Telephone [facility] [place] [address] Hollie Perez, PT Patient Status Social History Tobacco Use Types Packs/Day Years Used Date Smoking Tobacco: Never Assessed Sex and Gender Information Value Date Recorded Sex Assigned at Not on file 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 He cancelled appointment today after PARS told him we do not accept [employer] insurance. It was discussed with him today that hecould fill out financial paperwork to get services covered but he did not want to do that and left today. Patient's fiance answered and she was aware of the situation today. She stated she would discuss with him what he wanted to do moving forward and call us back before his next scheduled appt on 12/10/2021. documented in this encounter Plan of Treatment Not on file documented as of this encounter Visit Diagnoses Not on filedocumented in this encounter Care Teams Facility Sales And Admin Relationship Specialty Start Date End Date Clinic, Pcp PCP - General 07/14/16 03/25/22 documented as of this encounter
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
--- OUTSIDE RECORDS SUMMARY | 2024-03-26 05:40 | XMS_ITS | Encounter Summary ---
Author Organization [facility] Healthcare Address [address] [place] [address] Care Team Providers Care Manager In Training Name Role Phone Cristobal Agustin MD Primary Care Provider Encounter Details Date Type Department Care Team (Late st Contact Info) Description 09/07/2022 Documentation [facility] Physical Therapy [facility] [address] [address] Cynthia Salvador, PT Social History Tobacco Use Types Packs/Day Years Used Date Smoking Tobacco: Every Day Cigarettes Smokeless Tobacco: Never PHQ-2 Answer Date Recorded PHQ-2 Total Score (If total score is 3 or more points, staff should administer the PHQ-9) 2 04/27/2022 Sex and Gender Information Value Date Recorded Sex Assigned at Not on file 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 Gender Identity Not on file Sexual Orientation Not on file documented as of this encounter Progress Notes * Cynthia Salvador, PT - 09/07/2022 5:28 PM CDT RE-SENDING INITIAL EVALUATION FOR PHYSICAL THERAPY TO ORDERING PROVIDER FOR SIGNATURE THROUGH [employer] SYSTEM, 2ND ATTEMPT documented in this encounter Plan of Treatment Not on file documented as of this encounter Visit Diagnoses Not on filedocumented in this encounter Care Teams Manager In Training Relationship Specialty Start Date End Date Cristobal Agustin MD PCP - General Gastroenterology 03/26/22 documented as of this encounter
--- OUTSIDE RECORDS SUMMARY | 2024-03-26 05:40 | XMS_ITS | Encounter Summary ---
Author Organization [facility] Healthcare Address [address] [place] [address] Care Team Providers Care Clinical Appeals Rn Name Role Phone Cristobal Agustin MD Primary Care Provider Reason for Visit * Reason Comments PT Treatment * Physical Therapy (Routine) - Closed Specialty Diagnoses / Procedures Referred By Contac t Referred To Contact Physical Therapy Diagnoses Paraplegia, unspecified (HCC) Cristobal Agustin MD [address] [place] [phone] Phone: tel: fax: [facility] OP Physical Therapy [address] [place] [phone] Phone: tel: fax: Referral ID Status Reason Start Date Expiration Date V isits Requested Visits Authorized [id number] Closed Evaluate and Treat 08/27/2022 03/13/2023 6 99 Encounter Details Date Type Department Care Team (Late st Contact Info) Description 11/10/2022 8:30 AM CDT Therapy [facility] OP Physical Therapy [address] [place] [phone] Soni Lai PTA Paraplegia, unspecified (HCC) (Primary Dx); Paraplegia, complete [...] on file 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 Nu Step (foot straps and knee straps) L6 10 min with attachments L6 10 min with attachments L6 x 10min with attachments L5, 15 min with attachments L5 15 min at end of RX L5 10 min with attachments end of RX for cardiovascular endurance Stander Standing Frame 15 min with 4# wtd ball and black theraband Standing frame 30 min Standing frame 15 min Standing frame 20 min Standing frame 25 min Standing frame 25 min Standing Frame 15 min with UE strengthening and core activation 20 min during all exercises 20 min during all exercises - TB and Core exer Stander: T band rows Rows, single rows, horiz abd, punch 20x each Rows, rows with ER 20x, Pallof press Rows, rows with ER 20x, Pallof press Rows, rows with ER 20x, Pallof press Rows, rows with ER 20x, Pallof press Rows, rows with ER 20x, Pallof press Black tband rows, single alt rows, diagnols, punch forward across front with bilateral UE 20-40X EACH Rows Presses shoulder external rotation wall walks without the wall Rows Presses - Black TB shoulder external rotation - Red TB wall walks without the wall - Green TB Stander: ball resistance 4# ball over head, press out, diagnols, and round about Braxton ball [id number], diagonals 4# ball over head, press out, diagnols, and round about 6# ball over head, press out, diagnols, and round about 6# ball over head, press out, diagnols, and round about 6# Ball overheadpress, diagnols, chest press, round abouts NT time 6# Ball overhead press, diagnols, chest press, round abouts, catch with FABRICATION TECHNICIAN Performed without upper chest support strap Forgot, did it on mat in short sitting and long sitting NT Core Strengthening -half bosu sit ups -pertubations in all directions -pelvic tilts -ta bracing with resistance from therapist Long sitting, sit ups 10x with assist. Short sitting pt falls forward someone must woodworking shop laborer front. Ball press ups over head, single rows 10x Perturbations in stander Perturbations in stander 10x ea NT Seated: T System: Trunk rotation NT NT Pallof Push X10 reps x10 NT Nautilus: -Lat pulls -Rows -bench Biceps Diagonal up Lat pull dows 2x20 Used BAR Lat pull down 70# x40 Rows 50# x40 Bicep 70# x40 Bench press 50# x55 Used BAR Lat pull down 70# x40 Bicep 30# x40 Bench press 40# x50 NT time Used BAR - Lat pull downs 95# - push downs (tri/core) 70# -rows with bicep focus 70# // BARS STS // bars 3x with [...] ups 10x, standing PPT 10-20x NT time Mod a x 1 // bars standing for B knee blocking. Performs x 10 UE dips/mini squat Pt demonstrates improve knee buckling with cues for glut/core activation and repetition. sliding board transfers Pt demonstrating transfers without sliding board today Transfers with SBA for safety and w/c not locking well. Transfers SBA into standing frame Mod A - // bars for B knee blocking Min A - set up for nu-step transfers without sliding board Progress Note/Re-Cert [facility] 11-02-22 * Soni Lai PTA - 11/10/2022 8:30 AM CDT Images from the original note were not included. Physical Therapy Visit/Daily Note 11/10/2022 [address] 1985 ICD-9-CM ICD-10-CM 1. Paraplegia, unspecified (HCC) 344.1 G82.20 CRISTOBAL AGUSTIN Subjective: Pt reports he is continuing to have a lot of pain within his lower back, however standing and exercising always helps relieve his pain. Reports some upper body soreness. Reports was able to stand himself up getting in and out of the car and used the handle in the car for assistance. Pain today is 6-09/20. Took pain medicine before coming. Changes since last visit include none Objective: Objective Measurement/Observation: Pt performing transfers independently without cues. Pt performs standing in // bars with mod A x 1 due to B knee blocking, and pt requires heavy UE B assist on bars. Pt performs nu-step for cardiovascular exercises at the end of treatment with Mod A assist for setup. Specific exercises and treatment interventions are outlined on exercise worksheet document. Treatment Performed on This Visit: Manual Therapy (body part and techniques): None Therapeutic Procedure/Exercise: UE strengthening, prolonged standing, cardiovascular endurance Modalities: None HEP given: None Patient education: Discussion about use of gym membership and getting help from employees at the gym to be able to continue with strengthening and cardio endurance throughout the week, and until he can hear back from [facility]. Assessment: Patient tolerated today's treatment well without any increase in LB pain. Pt was able to perform 6#ball core exercise without the use of upper thoracic strap support. Pt demonstrates significant UE and core strength through improvement of transfers and performance with exercises. Pt demonstrates standing in // bars, however requires B knee blocking. Pt demonstrates improvement with verbal cues of glut and core activation to keep from B knee buckling. Patient demonstrates reduced muscle activation and core strength which is contributing to difficulty with prolonged standing. Patient would benefit from additional skilled therapy services and demonstrates good prognosis to achieve stated goals. Goals Addressed This Visit: STG 2,3, LTG 1,2,3 Plan: Patient would benefit from the following modification on next visit: continue POC as pt tolerates. Therapy will continue to address these impairments in order to progress towards functional goals. Soni Lai PTA. [facility] ATTENTION PHYSICIAN If you are unable to [...] (HCC) documented in this encounter Care Teams Clinical Appeals Rn Relationship Specialty Start Date End Date Cristobal Agustin MD PCP - General Gastroenterology 03/26/22 documented as of this encounter
--- OUTSIDE RECORDS SUMMARY | 2024-03-26 05:40 | XMS_ITS | Encounter Summary ---
Author Organization [facility] Healthcare Address [address] [place] [address] Care Team Providers Care Recycling Worker Name Role Phone Crisotbal Agustin MD Primary Care Provider Reason for Visit * Reason Comments PT Treatment * Physical Therapy (Routine) - Closed Specialty Diagnoses / Procedures Referred By Contac t Referred To Contact Physical Therapy Diagnoses Paraplegia, unspecified (HCC) Cristobal Agustin MD [address] [place] [address] Phone: tel: fax: [facility] OP Physical Therapy [address] [place] [address] Phone: tel: fax: Referral ID Status Reason Start Date Expiration Date V isits Requested Visits Authorized [id number] Closed Evaluate and Treat 08/27/2022 03/13/2023 6 99 Encounter Details Date Type Department Care Team (Late st Contact Info) Description 09/29/2022 10:30 AM CDT Therapy 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 Paraplegia, unspecified [...] and revised). 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 to manager staffing // bars with Min A for knee [...] 10/08/22 Date Date Date Date Date Date 08/282209/10/22 09/08/22 09/15/22 09/24/22 09/29/22 Visit Number [id number] [phone] ADDITIONAL HEP SHEETS ISSUED Late for treatrment Nu Step (foot straps and knee straps) L5 10 min arms and legs (Attachment) L5 10 min Arms and legs (attachments) NT Stander Standing frame x25 min Stander for 15 min Stand 20 min and did core and UE ex's (see below)Stand 20 min tubing and weighted ball for core strength (see below) 20 min Stander: T band rows Black x10 Black Rows Blue: pall of press Black: rows Pall of press bue Stander: ball resistance 4 lbs ball: overhead Side to side diagonals 4 lbs ball 4 lbs ball overhead and diagonals Core Strengthening -half bosu sit ups -pertubations [...] lbs Bicep 10 lbs Diagonal 10 lbs Progress Note/Re-Cert * Ashley Jones PTA - 09/29/2022 10:30 AM CDT Images from the original note were not included. Physical Therapy Visit/Daily Note 09/29/2022 [address] 1985 ICD-9-CM ICD-10-CM 1. Paraplegia, unspecified (HCC) 344.1 G82.20 Subjective: Pt reported that he is feeling a little better today. Pt did not have any pain medication the last time and he was not feeling well. Pain today is 7/10 . (Low back and abdominal pain) Objective: Objective Measurement/Observation Pt arrived to PT in manual W/C . Pt is independent with transfersusing the slide board. Pt performed trunk and core strengthening ex's while standing in the standerusing t-band and weighted balls for resistance. Pt used the Nautilus cable machine for UE and core strengthening sitting in his W/C. Pt received 42 minutes of treatment today during this session. [...] progress towards functional goals. Ashley Jones PTA [facility] ATTENTION PHYSICIAN If you are unable to [...] Primary documented in this encounter Care Teams Recycling Worker Relationship Specialty Start Date End Date Cristobal Agustin MD PCP - General Gastroenterology 03/26/22 documented as of this encounter
--- OUTSIDE RECORDS SUMMARY | 2024-03-26 05:40 | XMS_ITS | Encounter Summary ---
Author Organization [facility] Healthcare Address [address] [place] [address] Care Team Providers Care Patient Case Coordinator Name Role Phone Cristobal Agustin MD Primary Care Provider Encounter Details Date Type Department Care Team (Late st Contact Info) Description 09/22/2022 Documentation [facility] OP Physical Therapy [address] [place] [id number] Ashley Jones PTA Social History Tobacco Use Types Packs/Day Years Used Date Smoking Tobacco: Every Day Cigarettes Smokeless Tobacco: Never PHQ-2 Answer Date Recorded PHQ-2 Total Score (If total score is 3 or more points, staff should administer the PHQ-9) 2 04/27/2022 Sex and Gender Information Value Date Recorded Sex Assigned at Not on file 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 Pt informed about his next appt on Tuesday documented in this encounter Plan of Treatment Not on file documented as of this encounter Visit Diagnoses Not on filedocumented in this encounter Care Teams Patient Case Coordinator Relationship Specialty Start Date End Date Cristobal Agustin MD PCP - General Gastroenterology 03/26/22 documented as of this encounter
--- OUTSIDE RECORDS SUMMARY | 2024-03-26 05:40 | XMS_ITS | Encounter Summary ---
Author Organization [facility] Healthcare Address [address] [place] [address] Care Team Providers Care Electrical Tester Name Role Phone Cristobal Agustin MD Primary Care Provider Reason for Visit * Reason Comments PT Treatment * Physical Therapy (Routine) - Closed Specialty Diagnoses / Procedures Referred By Contac t Referred To Contact Physical Therapy Diagnoses Paraplegia, unspecified (HCC) Cristobal Agustin MD [address] [place] [phone] Phone: tel: fax: [facility] OP Physical Therapy [address] [place] [address] Phone: tel: fax: Referral ID Status Reason Start Date Expiration Date V isits Requested Visits Authorized [id number] Closed Evaluate and Treat 08/27/2022 03/13/2023 6 99 Encounter Details Date Type Department Care Team (Late st Contact Info) Description 11/12/2022 8:30 AM CDT Therapy [facility] OP Physical Therapy [address] [place] [phone] Ashley Jones PTA Paraplegia, unspecified (HCC) [...] on file Legal Sex 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 Nu Step (foot straps and knee straps) L6 10 min with attachments L6 10 min with attachments L6 x 10min with attachments L5, 15 min with attachments L5 15 min at end of RX L5 10 min with attachments end of RX for cardiovascular endurance Mat table Long sitting catch and open book, perturbations Stander Standing frame 20 min Standing frame 25 min Standing frame 25 min Standing Frame 15 min with UE strengthening and core activation 20 min during all exercises 20 min during all exercises - TB and Core exer Did Stander: T band rows Rows, rows with ER 20x, Pallof press [...] diagnols, and round about 6# ball over head,press out, diagnols, and round about 6# ball over head, press out, diagnols, and round about 6# Ball overhead press, diagnols, chest press, round abouts NT time 6# Ball overhead press, diagnols, chest press, round abouts, catch with STRADDLE BUG OPERATOR Performed without upper chest support strap NT Core Strengthening -half bosu sit ups -pertubations in all directions -pelvic tilts -ta bracing with resistance from therapist Perturbations in stander 10x ea NT Seated: T System: Trunk rotation NT NT Pallof Push X10 reps x10 NT Nautilus: -Lat pulls -Rows -bench Biceps Diagonal up Used BAR Lat pull down 70# x40 Bicep 30# x40 Bench press 40# x50 NT time Used BAR - Lat pull downs 95# - push downs (tri/core) 70# -rows with bicep focus 70# // BARS Min-mod+1 assist to block bilateral LE Static [...] glut/core activation and repetition. sliding board transfers Transfers with SBA for safety and w/c not locking well. Transfers SBA into standing frame Mod A - // bars for B knee blocking Min A - set up for nu-step transfers without sliding board Progress Note/Re-Cert [facility] [place] [place] 11-02-22 * Ashley Jones PTA - 11/12/2022 8:30 AM CDT Images from the original note were not included. Physical Therapy Visit/Daily Note 11/12/2022 [address] 1985 ICD-9-CM ICD-10-CM 1. Paraplegia, unspecified (HCC) 344.1 G82.20 CRISTOBAL AGUSTIN Subjective: Pt reports he is experiences back and abdominal pain and the pain intensity is variable..Pt contacted [facility] and he has an eval with them on 11/30/22. Pain today is 6/10. Changes since last visit include none Pt 10 min late today Objective: Objective Measurement/Observation: Pt performing transfers independently. Pt performed core strengthening ex's while standing in the Stander and in long sitting. Specific exercises and treatment interventions are outlined on exercise worksheet document. Treatment Performed on This Visit: Manual Therapy (body part and techniques): none Therapeutic Procedure/Exercise:focused on core strengthening ex's Modalities:none HEP given: long sitting core ex's at and open book Patient education: NT Assessment: Patient worked hard in PT. Patient demonstrates weak trunk and core musculature which is contributing to making sitting balance and transfers difficult. Patient would benefit from additional skilled therapy services and demonstrates good prognosis to achieve stated goals. Goals Addressed This Visit: all goals Plan: Patient would benefit from the following modification on next visit: POC Therapy will continue to address these impairments in order to progress towards functional goals. Ashley Jones PTA [facility] ATTENTION PHYSICIAN If you are unable to [...] Primary documented in this encounter Care Teams Electrical Tester Relationship Specialty Start Date End Date Cristobal Agustin MD PCP - General Gastroenterology 03/26/22 documented as of this encounter
--- OUTSIDE RECORDS SUMMARY | 2024-03-26 05:40 | XMS_ITS | Encounter Summary ---
Author Organization [facility] Healthcare Address [address] [place] [address] Care Team Providers Care Paper Machine Tender Name Role Phone Clinic, Pcp Primary Care Provider Unavailabl e Reason for Visit * Reason Comments PT Treatment Encounter Details Date Type Department Care Team (Late st Contact Info) Description 03/19/2022 12:45 PM MANAGER TREASURY Therapy [facility] OP Physical Therapy [address] [place] [phone] Les Galdamez, Zeenat Higginbotham PTA Paraplegia, unspecified (HCC) (Primary Dx) Social History Tobacco Use Types Packs/Day Years Used Date Smoking Tobacco: Never Assessed Sex and Gender Information Value Date Recorded Sex Assigned at Not on file Legal Sex Male 7:46 AM MANAGER TREASURY Gender Identity Not on file Sexual Orientation Not on file documented as of this encounter Progress Notes * Zeenat Mckeon PTA - 03/19/2022 12:45 PM CST ICD-9-CM ICD-10-CM 1. Paraplegia, unspecified (HCC) 344.1 G82.20 Precautions: paraplegia with T12 SCI PT Eval Date: 02/26/22 Orders : 04/15/22 Cert Expires: 04/15/22 Progress Note Due: 03/28/22 Date Date Date Date Date 02/26/22 03/12/22 03/19/22 Visit Number 1 2 3 Exercises/Treatment Sitting balance without UE support and reaching activities outside [place] Attempted requires max A fortrunk control Nu step for UE assisted ROM of LE L5 w/ B foot straps and thigh supports x10 min L5 x10 min with B foot straps and B thigh supports Transfers W/ supervision Supervision with sliding board. W/c safety Indep in new w/c Indep self propels. Sit to supine and supine to sit Used leg digital strategy manager for supine to sit, unable to use it for sit to supine Self DF stretch With leg digital strategy manager Standing frame Initiated. Pt completed self raising and lowering with RUE. Stood x20 min in standing frame. Pt was able to move BUE's while in standing frame with use of chest strap Progress Note/Re-Cert Goals: Short-Term Goals: to be [...] walk, shorter goal is for sitting balance. GER TREASURY * Zeenat Mckeon PTA - 03/19/2022 12:45 PM CST Images from the original note were not included. Physical Therapy Daily Visit Report 03/19/2022 [address] 1985 ICD-9-CM ICD-10-CM 1. Paraplegia, unspecified ([facility]) 344.1 G82.20 Subjective: Pt reports mild pain in lower back this date. Pt states he ordered an electric powered pedal bike for home that has lower leg supports but no thigh supports. Pt states he should get it today. Pt states he is very interested in a standing frame for home. Pain today is 3/10 in back. Changes since last visit include none reported. Objective: Objective Measurement/Observation: Pt presents in manual w/c. Pt is indep with w/c use. Pt completed transfers from w/c to/from nustep and w/c to/from mat table with use of sliding board. Pt was provided min A with setting up sliding board and required CGA/SBA for safety during transfer. Pt is ableto pull out sliding board indep. Pt tolerated nustep on L5 x10 min using BUE's with BLE's supportedwith foot straps and thigh supports. Discussed appropriateness of use of standing frame at home. Pttransferred to/from standing frame with sliding board with CGA/SBA. Pt assisted with straps but then pt was able to operate standing frame indep. Pt remained in standing x20 min. Specific exercises and treatment interventions are outlined [...] progress towards functional goals. Zeenat Mckeon PTA [facility] Please sign below to certify this plan of care/treatment plan. Thank you. Provider Signature: Date: GER TREASURY documented in this encounter Plan of Treatment Not on file documented as of this encounter Visit Diagnoses Diagnosis Paraplegia, unspecified (HCC)- Primary documented in this encounter Care Teams Paper Machine Tender Relationship Specialty Start Date End Date Clinic, Pcp PCP - General 07/14/16 03/25/22 documented as of this encounter
--- OUTSIDE RECORDS SUMMARY | 2024-03-26 05:40 | XMS_ITS | Encounter Summary ---
Author Organization [facility] Healthcare Address [address] [place] [address] Care Team Providers Care Trail Construction Worker Name Role Phone Cristobal Agustin MD Primary Care Provider Reason for Visit * Reason Comments PT Treatment * Physical Therapy (Routine) - Closed Specialty Diagnoses / Procedures Referred By Contac t Referred To Contact Physical Therapy Diagnoses Paraplegia, unspecified (HCC) Cristobal Agustin MD [address] [place] [id number] Phone: tel: fax: [facility] OP Physical Therapy [address] [place] [address] Phone: tel: fax: Referral ID Status Reason Start Date Expiration Date V isits Requested Visits Authorized [id number] Closed Evaluate and Treat 08/27/2022 03/13/2023 6 99 Encounter Details Date Type Department Care Team (Late st Contact Info) Description 11/17/2022 9:00 AM CDT Therapy [facility] OP Physical Therapy [address] [place] [phone] Priti Ramos, ÁNGEL Paraplegia, complete (HCC) (Primary Dx); Paraplegia, unspecified (HCC) Social History Tobacco Use Types Packs/Day Years Used Date Smoking Tobacco: Every Day Cigarettes Smokeless Tobacco: Never PHQ-2 Answer Date Recorded PHQ-2 Total Score (If total score is 3 or more points, staff should administer the PHQ-9) 2 04/27/2022 Sex and Gender Information Value Date Recorded Sex Assigned at Not on file 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 with Min A for knee [...] pt will follow up with appointments with [facility] and [email or web address] to pursue additional community support [...] date date Date Date Date Date Date Date 10-22-22 10-26-22 10/28/22 11-02-22 11/05/22 11/10/22 11/12/22 11/17/22 Visit Number 12 13 14 15 16 17 18 19 5 min late 10 min late ADDITIONAL [...] exercises - TB and Core exer Did done Stander: T band rows Rows, rows with [...] walks without the wall - Green TB Done and freedom dog trainer Stander: ball resistance 4# ball over head, press out, diagnols, and round about 6# ball over head,press out, diagnols, and round about 6# ball over head, press out, diagnols, and round about 6# Ball overhead press, diagnols, chest press, round abouts NT time 6# Ball overhead press, diagnols, chest press, round abouts, catch with TEXTILE EXAMINER Performed without upper chest support strap NT [...] and w/c not locking well. Transfers SBA intostanding frame Mod A - // bars for B knee blocking Min A - set up for nu-step transfers without sliding board Progress Note/Re-Cert [facility] 11-02-22 * Priti Ramos PTA - 11/17/2022 9:00 AM CDT Images from the original note were not included. Physical Therapy Visit/Daily Note 11/17/2022 Solo Miller 1985 ICD-9-CM ICD-10-CM 1. 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 Paraplegia, unspecified (HCC) 344.1 G82.20 Subjective: Pt reports he has constant LB pain no matter what position he is in. Pt contacted [facility] and he has an eval with them on 11/30/22. Pain today is 5/10. Changes since last visit include none reported Objective: Objective Measurement/Observation: Pt performing transfers independently. Pt performed core strengthening ex's while standing in the Stander used the [employer] dog trainer. Patient girlfriend present for treatment. Specific exercises and treatment interventions are outlined [...] in order to progress towards functional goals. [facility] ATTENTION PHYSICIAN If you are [...] Visit Diagnoses Diagnosis Paraplegia, complete (HCC)- Primary Paraplegia, unspecified (HCC) documented in this encounter Care Teams Trail Construction Worker Relationship Specialty Start Date End Date Cristobal Agustin MD PCP - General Gastroenterology 03/26/22 documented as of this encounter
--- OUTSIDE RECORDS SUMMARY | 2024-03-26 05:40 | XMS_ITS | Encounter Summary ---
Author Organization [facility] Healthcare Address [address] [place] [address] Care Team Providers Care Candle Cutter Name Role Phone Clinic, Pcp Primary Care Provider Unavailabl e Reason for Visit * Reason Onset Date Comments PT Discharge 12/10/2021 Encounter Details Date Type Department Care Team (Late st Contact Info) Description 12/10/2021 Documentation [facility] [place] [address] Dolores Buck, PT PT Discharge Social History Tobacco Use Types Packs/Day Years Used Date Smoking Tobacco: Never Assessed Sex and Gender Information Value Date Recorded Sex Assigned at Not on file Legal Sex Male 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 male Natasha Rojas MD [address] [facility] [address] [place] [address] ICD-9-CM ICD-10-CM 1. 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.21 Subjective: Pt requests discharge at this time as this clinic does not accept his insurace. PT Start Date: 12/02/21 Last PT Visit: 12/02/21 No Shows: 1 Cancellations: 0 Total # of Visits: 1 Dolores Buck PT documented in this encounter Plan of Treatment Not on file documented as of this encounter Visit Diagnoses Diagnosis Paraplegia, complete (HCC)- Primary documented in this encounter Care Teams Candle Cutter Relationship Specialty Start Date End Date Clinic, Pcp PCP - General 07/14/16 03/25/22 documented as of this encounter
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
--- OUTSIDE RECORDS SUMMARY | 2024-03-26 05:40 | XMS_ITS | Encounter Summary ---
Author Organization 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 Gender Identity Not on file Sexual Orientation Not on file documented as of this encounter Plan of Treatment Not on file documented as of this encounter Procedures Procedure Name Priority Date/Time Associated Diagnosis Comments CS GLUCOSE Routine Gen Lab 11/05/2021 5:32 AM CDT EGFR Routine Gen Lab 11/05/2021 5:32 AM CDT DIFFERENTIAL AUTO Routine Gen Lab 11/05/2021 5:3 2 AM CDT COMPREHENSIVE METABOLIC PANEL WITHOUT GLUCOSE (OUTREACH) Routine Gen Lab 11/05/2021 5:32 AM CDT CBC WITH AUTO DIFFERENTIAL Routine Gen Lab 11/05/2021 5:32 AM CDT documented in this encounter Results * eGFR (11/05/2021 5:32 AM CDT) eGFR >90 90 - 130 [...] interpretive data was last reviewed 2021. Blood 11/05/2021 5:32 AM CDT 11/05/2021 6:34 AM CDT us Notinfile Unknown LAB BLOOD ORDERABLES Final Res ult [facility] Department [place] [address] * (ABNORMAL) Comprehensive metabolic panel, without glucose (Outreach) (11/05/2021 5:32 AM CDT) Sodium 138 135 - 145 mmol/L [facility] Potassium, pl 4.1 3.3 - 4.9 mmol/L [facility] Chloride 102 97 - 110 mmol/L [facility] CO2 30 22 - 32 mmol/L [facility] Anion gap 6 2 - 15 mmol/L [facility] BUN 15 8 - 25 mg/dL [facility] Creatinine 0.98 0.80 - 1.30 mg/dL [facility] Calcium 9.7 8.5 - 10.3 mg/dL [facility] Protein, pl 6.9 6.5 - 8.5 g/dL [facility] Albumin 3.8 3.5 - 5.0 g/dL [facility] Bilirubin, total 0.2 0.1 - 1.2 mg/dL [facility] Alk phos 151(H) 40 - 130 Units/L [facility] AST 143(H) 10 - 50 Units/L [facility] ALT 261(H) 7 - 55 Units/L [facility] Blood 11/05/2021 5:32 AM CDT 11/05/2021 6:31 AM CDT us Notinfile Unknown LAB BLOOD ORDERABLES Final Res ult Performing Organization Address [facility] de Phone Number [facility] Department [place] [address] * CS GLUCOSE (11/05/2021 5:32 AM CDT) [facility] Glucose 94 70 - 199 mg/dL [facility] Comment: Interpretive Data Fasting glucose >/= 126 [...] interpretive data was last revised 2017. Blood 11/05/2021 5:32 AM CDT 11/05/2021 6:31 AM CDT us Notinfile Unknown LAB BLOOD ORDERABLES Final Res ult Performing Organization Address [facility]/ZIP Co de Phone Number [facility] Department [place] [address] * Differential, auto (11/05/2021 5:32 AM CDT) Neutrophil abs 3.2 1.7 - 6.5 K/cumm [facility] Imm gran abs 0.0 0.0 - 0.1 K/cumm [facility] Lymphocyte abs 1.8 0.8 - 3.3 K/cumm [facility] Monocyte abs 0.6 0.2 - 0.8 K/cumm [facility] Eosinophil abs 0.2 0.0 - 0.5 K/cumm [facility] Basophil abs 0.0 0.0 - 0.1 K[facility] Neutrophil pct 55.7 % [facility] Comment: Interpretive Data Percent cell count reference ranges are not reported, since discordance with absolute values may lead to misinterpretation of CBC data. Current Interpretive Data was last revised on 2017. Imm gran pct 0.2 % [facility] Comment: Interpretive Data Percent cell count reference ranges are not reported, since discordance with absolute values may lead to misinterpretation of CBC data. Current Interpretive Data was last revised on 2017. Lymphocyte pct 31.0 % [facility] Comment: Interpretive Data Percent cell count reference ranges are not reported, since discordance with absolute values may lead to misinterpretation of CBC data. Current Interpretive Data was last revised on 2017. Monocyte pct 9.8 % [facility] Comment: Interpretive Data Percent cell count reference ranges are not reported, since discordance with absolute values may lead to misinterpretation of CBC data. Current Interpretive Data was last revised on 2017. Eosinophil pct 2.8 % [facility] Comment: Interpretive Data Percent cell count reference ranges are not reported, since discordance with absolute values may lead to misinterpretation of CBC data. Current Interpretive Data was last revised on 2017. Basophil pct 0.5 % [facility] Comment: Interpretive Data Percent cell count reference ranges are not reported, since discordance with absolute values may lead to misinterpretation of CBC data. Current Interpretive Data was last revised on 2017. Blood 11/05/2021 5:32 AM CDT 11/05/2021 6:31 AM CDT us Notinfile Unknown LAB BLOOD ORDERABLES Final Res ult Performing Organization Address [facility] de Phone Number [facility] [place] [address] * (ABNORMAL) CBC with auto differential (11/05/2021 5:32 AM CDT) [facility] WBC 5.8 3.8 - 9.9 K/cumm [facility] Hgb 11.1(L) 13.0 - 17.5 g/dL [facility] Hct 34.9(L) 38.9 - 50.3 % [facility] Plt 327 150 - 400 K/cumm [facility] MPV 10.3 9.1 - 12.3 fL [facility] RBC 3.80(L) 4.30 - 5.80 M/cumm [facility] MCV 91.8 81.3 - 96.4 fL [facility] MCH 29.2 27.1 - 33.3 pg [facility] MCHC 31.8(L) 32.3 - 35.7 g/dL [facility] RDW CV 16.1(H) 11.1 - 14.9 % [facility] RDW SD 54.8(H) 35.7 - 48.1 fL [facility] NRBC abs 0.00 0.00 - 0.01 K/cumm [facility] Blood 11/05/2021 5:32 AM CDT 11/05/2021 6:31 AM CDT us Notinfile Unknown LAB BLOOD ORDERABLES Final Res ult Performing Organization Address City/[facility]/ZIP Co de Phone Number [facility] [place] [address] documented in this encounter Visit Diagnoses Not on filedocumented in this encounter Care Teams Plywood Stock Grader Relationship Specialty Start Date End Date Clinic, Pcp PCP - General 07/14/16 03/25/22 documented as of this encounter
--- OUTSIDE RECORDS SUMMARY | 2024-03-26 05:40 | XMS_ITS | Encounter Summary ---
Author Organization [facility] Healthcare Address [address] [place] [address] Care Team Providers Care Parts Order And Stock Clerk Name Role Phone Cristobal Agustin MD Primary Care Provider Encounter Details Date Type Department Care Team (Late st Contact Info) Description 11/17/2022 Documentation [facility] OP Physical Therapy [facility] [address] [address] Cynthia Salvador, PT Social History Tobacco Use Types Packs/Day Years Used Date Smoking Tobacco: Every Day Cigarettes Smokeless Tobacco: Never PHQ-2 Answer Date Recorded PHQ-2 Total Score (If total score is 3 or more points, staff should administer the PHQ-9) 2 04/27/2022 Sex and Gender Information Value Date Recorded Sex Assigned at Not on file 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 Solo Miller 1985 Paraplegia, unspecified (HCC) 344.1 G82.20 2. 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 He 5'9 and 168# This can be ordered through [employer]. Date this Order is Being Requested: 11/02/2022 If the requested services are approved, please sign and date below and then fax back to our clinic at [phone]. Physician Signature: Date: Physician's Printed Name: documented in this encounter Plan of Treatment Not on file documented as of this encounter Visit Diagnoses Not on filedocumented in this encounter Care Teams Parts Order And Stock Clerk Relationship Specialty Start Date End Date Cristobal Agustin MD PCP - General Gastroenterology 03/26/22 documented as of this encounter
--- OUTSIDE RECORDS SUMMARY | 2024-03-26 05:40 | XMS_ITS | Encounter Summary ---
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 Called pt and he stated he wasn't aware of his appt today. Reminded pt of next appt date and time. RETE PRECAST MOULDER documented in this encounter Plan of Treatment Not on file documented as of this encounter Visit Diagnoses Not on filedocumented in this encounter Care Teams Tipple Supervisor Relationship Specialty Start Date End Date Clinic, Pcp PCP - General 07/14/16 03/25/22 documented as of this encounter
--- OUTSIDE RECORDS SUMMARY | 2024-03-26 05:40 | XMS_ITS | Data Portability ---
Author Organization [place] - [facility] [employer], Main Office Address [address] [place] [address] Assessment No assessment recorded. Plan of Treatment Reminders Order Date Submit Date Provider Last Modified By Organization Details Last Modified Time Details Appointments None recorded. Lab None recorded. Referral None recorded. Procedures None recorded. Surgeries None recorded. Imaging XR, kidney + ureter + bladder [facility] ([facility] Scheduling), [address] [place], [address], 10:18:06 Medication Orders None recorded. Patient TargetsNo targets recorded. Patient Instructions Encounter Date Encounter Id Patient Instructions Last Modified By Organization Details Last Modified Time 01/04/2024 [id number] 1. I am going to send a [...] bladd er No observ ation record ed. [facility] ([facility] Scheduling) [address] [place], [address], 01/17/2024 10:20:30 Result Notes None recorded. Problems Name Problem SNOMED Code Status Onset Date Resolution Date Notes Provider Name and Address Organization Details Recorded Time Urinary tract infectious disease 24601425 Active Pooja Brown CMA null, [place] [employer] [facility] 4 09:27:25 Kidney stone 88023542 Active 024 Elsie Lebron null, [place] [employer] [facility] [employer] [facility] 14:53:36 Neurogenic urinary bladder 454497302 Active 024 Eder Mcnamara MD [address], [address] , [facility] [employer] 4 16:50:43 Problem Notes None recorded. Procedures Surgical History None recorded. Imaging Results Imaging Date Name Status LastModified by Organiz ation Details LastModified Time 01/17/2024 XR, kidney + ureter + bladder completed [id number] [facility] ([facility] Scheduling) [address] [place], [address], 01/17/2024 10:20:30 Procedure Notes None recorded. Medical Equipment None [...] 138 mm[Hg] 91 mm[Hg] Pooja Brown CMA [place] [employer] [facility] [employer] [facility] 14:41:13 Social History None recorded. Functional Status None recorded. Mental Status None recorded. Family History Nothing Reported. Medical History No medical history recorded. Past Encounters Encounter ID Performer Location Encounter Start Date Encounter Closed Date Diagnosis/Indication Diagnosis SNOMED-CT Code Diagnosis ICD10 Code Diagnosis Note [id number] Eder Mcnamara MD [facility] [address], [address] [place] [address] 01/04/2024 14:32:02 01/04/2024 15:12:07 Urinary tract infectious disease 23483660 N39.0 Kidney stone 38701967 N2 0.0 Neurogenic urinary bladder 330410154 N31.9 Health Concerns Section Related Observation LastModified by Organization Detai ls LastModified Time None Recorded Concern Status LastModified by Organization Details LastModified Time None Recorded Advance Directives Directive None Recorded Payers Encounter Date Sequence Insurance Name Policy Number Policy Jacome Covered Member ID Jacome Member ID Guarantor Name 01/04/2024 1 [employer] [facility] ON OR AFTER 02/12/2020 (MEDICAID REPLACEMENT - HMO) Solo Miller [id number] Solo Miller
--- OUTSIDE RECORDS SUMMARY | 2024-03-26 05:40 | XMS_ITS | Encounter Summary ---
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 Gender Identity Not on file Sexual Orientation Not on file documented as of this encounter Plan of Treatment Not on file documented as of this encounter Procedures Procedure Name Priority Date/Time Associated Diagnosis Comments URINALYSIS AND REFLEX TO MICROSCOPIC AND CULTURE Routine Gen Lab 11/02/2021 7:36 PM CDT URINALYSIS, MICROSCOPIC ONLY Routine Gen Lab 11/02/2021 7:36 PM CDT URINE CULTURE Routine Gen Lab 11/02/2021 7:36 PM CDT CS GLUCOSE Routine Gen Lab 11/02/2021 5:32 AM CDT documented in this encounter Results * (ABNORMAL) Urine culture Urine (11/02/2021 7:36 PM CDT) Report Final Report: Greater than or equal to 100,000 colonies/mL of Escherichia coli Plus growth of clinically insignificant bacterial corbin. (.) [facility] Organism ESCHERICHIA COLI [facility] Organism PLUS GROWTH OF CLINICALLY INSIGNIFICANT CORBIN. [facility] Urine 11/02/2021 7:36 PM CDT 11/03/2021 7:15 AM CDT Narrative [facility] - 11/04/2021 7:36 AM CDT Urine culture reflexed based upon urinalysis results. Testing performed by [facility] ([phone]) Organism Antibiotic Method Susceptibility Escherichia coli Ampicillin INTERPRETATION Resistant Escherichia coli Cefazolin INTERPRETATION Susceptible Escherichia coli Nitrofurantoin INTERPRETATION Susceptible Escherichia coli Gentamicin INTERPRETATION Susceptible Escherichia coli Trimethoprim with Sulfamethoxazole IN TERPRETATION Susceptible Escherichia coli Meropenem INTERPRETATION Susceptible Escherichia coli Cefepime INTERPRETATION Susceptible Escherichia coli Ciprofloxacin INTERPRETATION Susceptible Escherichia coli Ceftazidime INTERPRETATION Susceptible Escherichia coli Ceftriaxone INTERPRETATION Susceptible Escherichia coli Piperacillin/Tazobactam INTERPRETATIO N Susceptible Escherichia coli Cephalexin INTERPRETATION Susceptible Escherichia coli Cefuroxime-axetil INTERPRETATION Susceptible Escherichia coli Cefdinir INTERPRETATION Susceptible us Notinfile Unknown LAB MICROBIOLOGY - GENERAL ORD ERABLES Final Result Performing Organization Address City/[facility]/ZIP Co de Phone Number [facility] [place] [address] * (ABNORMAL) Urinalysis, microscopic only (11/02/2021 7:36 PM CDT) WBC, ur 21-50(A) 0 - 5 /HPF [facility] RBC, ur 0-2 0 - 2 /HPF [facility] Epithelial cells, squamous, ur 1-5 0 - 5 /HPF [facility] Bacteria, ur 4+(A) [facility] Amorphous crystals, ur Trace(A) [facility] Calcium oxalate crystals, ur 1+(A) [facility] Culture Reflex Comment Reflex to urine culture will be performed. [facility] Urine 11/02/2021 7:36 PM CDT 11/03/2021 6:26 AM CDT us Notinfile Unknown LAB URINE ORDERABLES Final Res ult Performing Organization Address City/[facility]/ZIP Co de Phone Number [facility] [place] [address] * (ABNORMAL) Urinalysis reflex to microscopic and culture Urine (11/02/2021 7:36 PM CDT) Color, ur Yellow Yellow [facility] Clarity, ur Cloudy(A) Clear [facility] Specific gravity, ur 1.027 1.003 - 1.030 [facility] pH, urine 6.5 [facility] Protein, ur ql Trace Negative [facility] Glucose, ur ql Negative Negative [facility] Ketones, ur Negative Negative [facility] Bilirubin, ur Negative Negative [facility] Blood, ur Negative Negative [facility] Urobilinogen, ur <2.0 <2.0 mg/dL [facility] Nitrite, ur Positive(A) Negative [facility] Leukocyte esterase, ur 2+(A) Negative [facility] UA reflex comment Reflex to microscopic UA will be performed. [facility] Urine 11/02/2021 7:36 PM CDT 11/03/2021 6:26 AM CDT Narrative [facility] - 11/03/2021 6:36 AM CDT ?? Urine pH is affected by diet, medications, systemic acid-base disturbances, and renal tubular function. ??pH may affect urinary stone formation. ??For example, urine pH below 6.0 may help reduce the tendency for calcium phosphate stones and pH greater than 6.0 may reduce the tendency for uric acid stone formation. Source: [employer]. Last revised 03-24-2017 us Notinfile Unknown LAB MICROBIOLOGY - GENERAL ORD ERABLES Final Result [facility] [place] [address] * CS GLUCOSE (11/02/2021 5:32 AM CDT) Glucose 94 70 - 199 mg/dL [facility] Comment: Interpretive Data Fasting glucose >/= [...] interpretive data was last revised 2017. Blood 11/02/2021 5:32 AM CDT 11/02/2021 6:43 AM CDT us Notinfile Unknown LAB BLOOD ORDERABLES Final Res ult [facility] [place] [address] documented in this encounter Visit Diagnoses Not on filedocumented in this encounter Care Teams Worm Picker Relationship Specialty Start Date End Date Clinic, Pcp PCP - General 07/14/16 03/25/22 documented as of this encounter
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
--- OUTSIDE RECORDS SUMMARY | 2024-03-26 05:40 | XMS_ITS | Encounter Summary ---
Author Organization [facility] Healthcare Address [address] [place] [address] Care Team Providers Care Autopsy Pathologist Name Role Phone Cristobal Agustin MD Primary Care Provider Reason for Visit * Diagnostic Imaging (Routine) - Closed Specialty Diagnoses / Procedures Referred By Contac t Referred To Contact Diagnoses Other difficulties with micturition Procedures US Kidney Complete US Renal Limited Eder Gibson MD [address] [place] [address] Phone: tel: fax: [address] [phone] Referral ID Status Reason Start Date Expiration Date Visits Re quested Visits Authorized [id number] Closed 02/23/2023 03/24/2024 1 1 Encounter Details Date Type Department Care Team (Latest Contact Info) Description 03/01/2023 3:20 PM RESPITE COORDINATOR - 03/01/2023 11:59 PM RESPITE COORDINATOR Hospital Encounter [address] [address] Other difficulties with micturition Discharge Disposition: Discharge to home or self care Social History Tobacco Use Types Packs/Day Years [...] on file Legal Sex Male 7:46 AM RESPITE COORDINATOR Gender Identity Not on file Sexual Orientation Not on file documented as of this encounter Medications at Time of Discharge acetaminophen (TYLENOL) 500 mg tablet Take 1,000 mg by mouth 3 (three) times a day 10/14/2021 amLODIPine (NORVASC) 5 mg tablet Take 5 mg by mouth every morning 02/15/2022 baclofen (LIORESAL) 10 mg tablet Take 10 mg by mouth 3 (three) times a day For muscle spasms 02/15/2022 chlorhexidine (PERIDEX) 0.12 % solution Swish and spit daily 10/13/2021 docusate sodium (COLACE) 100 mg capsule Take 100 mg by mouth as needed 02/15/2022 enoxaparin (LOVENOX) 40 mg/0.4 mL syringe Inject 40 mg under the skin every 12 (twelve) hours HYDROcodone-aceta minophen (NORCO) 5-325 mg per tablet Take 1 tablet by mouth as needed 04/23/2020 ibuprofen (ADVIL,MOTRIN) 800 mg tablet Take 800 mg by mouth 3 (three) times a day as needed Linzess 145 mcg capsule Take 145 mcg by mouth daily 02/15/2022 methocarbamoL (ROBAXIN) 750 mg tablet Take 750 mg by mouth every 8 (eight) hours 10/13/2021 pregabalin (LYRICA) 150 mg capsule Take 150 mg by mouth 2 (two) times a day 04/23/2022 documented as of this encounter Discharge Disposition Disposition Code Departure Means Destination Discharge to home or self care documented in this encounter Plan of Treatment Not on file documented as of this encounter Procedures Procedure Name Priority Date/Time Associated Diagnosis Comments US KIDNEY COMPLETE Schedule Routine, Read Routine (OP Routine) 03/01/2023 3:42 PM RESPITE COORDINATOR Other difficulties with micturition documented in this encounter Results * US Kidney Complete (03/01/2023 3:42 PM RESPITE COORDINATOR) Anatomical Region Laterality Modality Kidney N/A Ultrasound 03/02/2023 9:13 PM RESPITE COORDINATOR Narrative 03/02/2023 9:16 PM RESPITE COORDINATOR EXAM DESCRIPTION: US KIDNEY COMPLETE REASON FOR STUDY: Lower abdominal pain x1 year, recurrent UTI, patient self caths TECHNIQUE: Ultrasound of the kidneys and urinary bladder was performed with grayscale imaging. COMPARISON: None available FINDINGS: RIGHT KIDNEY: The right kidney measures ??10.4 cm in length. ??Upper and lower poles of the right kidney are obscured by bowel gas. ??Normal echogenicity and renal cortical thickness. ??Study is technically challenging. LEFT KIDNEY: The left kidney measures ??11.5 cm in length. ??Normal size and echogenicity. ??Normal renal cortical thickness. ??No hydronephrosis. URINARY BLADDER: ?? Urinary bladder is unremarkable. OTHER: ?? No other additional findings. IMPRESSION: Normal renal ultrasound. THIS IS AN ELECTRONICALLY VERIFIED FINAL REPORT 03/02/2023 9:16 PM - Electronically signed by ??Mandy Bourgeois D.O. AC D: ??03/02/2023 9:16 PM T: Report ID: [id number] Reading Location: ??[id number] Procedure Note Mandy Bourgeois DO - 03/02/2023 EXAM DESCRIPTION: US KIDNEY COMPLETE REASON FOR STUDY: Lower abdominal pain x1 year, recurrent UTI, patientself caths TECHNIQUE: Ultrasound of the kidneys and urinary bladder was performedwith grayscale imaging. COMPARISON: None available FINDINGS: RIGHT KIDNEY: The right kidney measures 10.4 cm in length.Upper and lower poles of the right kidney are obscured by bowel gas. Normal echogenicity and renal cortical thickness. Study is technicallychallenging. LEFT KIDNEY: The left kidney measures 11.5 cm in length. Normal size and echogenicity. Normal renal cortical thickness. No hydronephrosis. URINARY BLADDER: Urinary bladder is unremarkable. OTHER: No other additional findings. IMPRESSION: Normal renal ultrasound. THIS IS AN ELECTRONICALLY VERIFIED FINAL REPORT 03/02/2023 9:16 PM - Electronically signed by Mandy Bourgeois D.O. AC T: Report ID: [id number] Reading Location: [id number] us Eder Gibson MD IMG US PROCEDURES Final Re sult documented in this encounter Visit Diagnoses Diagnosis Other difficulties with micturition documented in this encounter Care Teams Autopsy Pathologist Relationship Specialty Start Date End Date Cristobal Agustin MD PCP - General Gastroenterology 03/26/22 documented as of this encounter
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
--- OUTSIDE RECORDS SUMMARY | 2024-03-26 05:40 | XMS_ITS | Encounter Summary ---
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 Gender Identity Not on file Sexual Orientation Not on file documented as of this encounter Plan of Treatment Not on file documented as of this encounter Procedures Procedure Name Priority Date/Time Associated Diagnosis Comments CS GLUCOSE Routine Gen Lab 10/29/2021 10:25 AM CDT EGFR Routine Gen Lab 10/29/2021 10:25 AM CDT DIFFERENTIAL AUTO Routine Gen Lab 10/29/2021 10: 25 AM CDT COMPREHENSIVE METABOLIC PANEL WITHOUT GLUCOSE (OUTREACH) Routine Gen Lab 10/29/2021 10:25 AM CDT CBC WITH AUTO DIFFERENTIAL Routine Gen Lab 10/29/2021 10:25 AM CDT documented in this encounter Results * eGFR (10/29/2021 10:25 AM CDT) eGFR >90 90 - 130 mL/min/1. 73 m2 [facility] Comment: Interpretive Data Reference Interval Normal ?>/= [...] interpretive data was last reviewed 2021. Blood 10/29/2021 10:2 5 AM CDT 10/29/2021 11:16 AM CDT us Notinfile Unknown LAB BLOOD ORDERABLES Final Res ult [facility] [place] [address] * (ABNORMAL) Comprehensive metabolic panel, without glucose (Outreach) (10/29/2021 10:25 AM CDT) Sodium 139 135 - 145 mmol/L [facility] Potassium, pl 3.9 3.3 - 4.9 mmol/L [facility] Chloride 100 97 - 110 mmol/L [facility] CO2 30 22 - 32 mmol/L [facility] Anion gap 9 2 - 15 mmol/L [facility] BUN 13 8 - 25 mg/dL [facility] Creatinine 0.91 0.80 - 1.30 mg/dL [facility] Calcium 9.3 8.5 - 10.3 mg/dL [facility] Protein, pl 6.9 6.5 - 8.5 g/dL [facility] Albumin 3.5 3.5 - 5.0 g/dL [facility] Bilirubin, total 0.2 0.1 - 1.2 mg/dL [facility] Alk phos 174(H) 40 - 130 Units/L [facility] AST 154(H) 10 - 50 Units/L [facility] ALT 362(H) 7 - 55 Units/L [facility] Blood 10/29/2021 10:2 5 AM CDT 10/29/2021 10:59 AM CDT us Notinfile Unknown LAB BLOOD ORDERABLES Final Res ult Performing Organization Address [facility] de Phone Number [facility] Department [place] [address] * CS GLUCOSE (10/29/2021 10:25 AM CDT) [facility] Signature Glucose 95 70 - 199 mg/dL [facility] Comment: Interpretive Data Fasting glucose [...] interpretive data was last revised 2017. Blood 10/29/2021 10:2 5 AM CDT 10/29/2021 10:59 AM CDT us Notinfile Unknown LAB BLOOD ORDERABLES Final Res ult Performing Organization Address [facility]/State/ZIP Co de Phone Number MARY ANN CLEMON[facility] [place] [address] * Differential, auto (10/29/2021 10:25 AM CDT) Neutrophil abs 3.5 1.7 - 6.5 K/cumm [facility] Imm gran abs 0.0 0.0 - 0.1 K/cumm [facility] Lymphocyte abs 1.5 0.8 - 3.3 K/cumm [facility] Monocyte abs 0.7 0.2 - 0.8 K/cumm [facility] Eosinophil abs 0.2 0.0 - 0.5 K/cumm [facility] Basophil abs 0.0 0.0 - 0.1 K/cumm [facility] Neutrophil pct 59.1 % [facility] Comment: Interpretive Data Percent cell count reference ranges are not reported, since discordance with absolute values may lead to misinterpretation of CBC data. Current Interpretive Data was last revised on 2017. Imm gran pct 0.3 % [facility] Comment: Interpretive Data Percent cell count reference ranges are not reported, since discordance with absolute values may lead to misinterpretation of CBC data. Current Interpretive Data was last revised on 2017. Lymphocyte pct 25.3 % [facility] Comment: Interpretive Data Percent cell count reference ranges are not reported, since discordance with absolute values may lead to misinterpretation of CBC data. Current Interpretive Data was last revised on 2017. Monocyte pct 11.5 % [facility] Comment: Interpretive Data Percent cell count reference ranges are not reported, since discordance with absolute values may lead to misinterpretation of CBC data. Current Interpretive Data was last revised on 2017. Eosinophil pct 3.1 % [facility] Comment: Interpretive Data Percent cell count reference ranges are not reported, since discordance with absolute values may lead to misinterpretation of CBC data. Current Interpretive Data was last revised on 2017. Basophil pct 0.7 % [facility] Comment: Interpretive Data Percent cell count reference ranges are not reported, since discordance with absolute values may lead to misinterpretation of CBC data. Current Interpretive Data was last revised on 2017. Blood 10/29/2021 10:2 5 AM CDT 10/29/2021 10:59 AM CDT us Notinfile Unknown LAB BLOOD ORDERABLES Final Res ult Performing Organization Address [facility] Co de Phone Number [facility] [place] [address] * (ABNORMAL) CBC with auto differential (10/29/2021 10:25 AM CDT) WBC 5.8 3.8 - 9.9 K/cumm [facility] Hgb 10.2(L) 13.0 - 17.5 g/dL [facility] Hct 32.4(L) 38.9 - 50.3 % [facility] Plt 392 150 - 400 K/cumm [facility] MPV 10.6 9.1 - 12.3 fL [facility] RBC 3.54(L) 4.30 - 5.80 M/cumm [facility] MCV 91.5 81.3 - 96.4 fL [facility] MCH 28.8 27.1 - 33.3 pg [facility] MCHC 31.5(L) 32.3 - 35.7 g/dL [facility] RDW CV 16.3(H) 11.1 - 14.9 % [facility] RDW SD 55.4(H) 35.7 - 48.1 fL [facility] NRBC abs 0.00 0.00 - 0.01 K/cumm [facility] Blood 10/29/2021 10:2 5 AM CDT 10/29/2021 10:59 AM CDT us Notinfile Unknown LAB BLOOD ORDERABLES Final Res ult Performing Organization Address City/[facility]/ZIP Co de Phone Number [facility] [place] [address] documented in this encounter Visit Diagnoses Not on filedocumented in this encounter Care Teams Sales Product Specialist Relationship Specialty Start Date End Date Clinic, Pcp PCP - General 5/3/17 1/12/23 documented as of this encounter
--- OUTSIDE RECORDS SUMMARY | 2024-03-26 05:40 | XMS_ITS | Encounter Summary ---
Author Organization [facility] Healthcare Address [address] [place] [address] Care Team Providers Care Guest Relations Associate Name Role Phone Cristobal Agustin MD Primary Care Provider Encounter Details Date Type Department Care Team (Late st Contact Info) Description 11/24/2022 Documentation [facility] OP Physical Therapy [address] [place] [id number] Ashley Jones PTA Social History Tobacco Use Types Packs/Day Years Used Date Smoking Tobacco: Every Day Cigarettes Smokeless Tobacco: Never PHQ-2 Answer Date Recorded PHQ-2 Total Score (If total score is 3 or more points, staff should administer the PHQ-9) 2 04/27/2022 Sex and Gender Information Value Date Recorded Sex Assigned at Not on file 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 documented in this encounter Plan of Treatment Not on file documented as of this encounter Visit Diagnoses Not on filedocumented in this encounter Care Teams Guest Relations Associate Relationship Specialty Start Date End Date Cristobal Agustin MD PCP - General Gastroenterology 03/26/22 documented as of this encounter
--- OUTSIDE RECORDS SUMMARY | 2024-03-26 05:40 | XMS_ITS | Encounter Summary ---
Author Organization [facility] Healthcare Address [address] [place] [address] Care Team Providers Care Resilient Tile Installer Name Role Phone Cristobal Agustin MD Primary Care Provider Encounter Details Date Type Department Care Team (Late st Contact Info) Description 09/27/2022 Documentation [facility] OP Physical Therapy [address] [place] [id number] Ashley Jones PTA Social History Tobacco Use Types Packs/Day Years Used Date Smoking Tobacco: Every Day Cigarettes Smokeless Tobacco: Never PHQ-2 Answer Date Recorded PHQ-2 Total Score (If total score is 3 or more points, staff should administer the PHQ-9) 2 04/27/2022 Sex and Gender Information Value Date Recorded Sex Assigned at Not on file 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 Unable to connect to his phone. Pt has another appt scheduled for this Tuesday. documented in this encounter Plan of Treatment Not on file documented as of this encounter Visit Diagnoses Not on filedocumented in this encounter Care Teams Resilient Tile Installer Relationship Specialty Start Date End Date Cristobal Agustin MD PCP - General Gastroenterology 03/26/22 documented as of this encounter
--- OUTSIDE RECORDS SUMMARY | 2024-03-26 05:40 | XMS_ITS | Encounter Summary ---
Author Organization [facility] Address [address] [place] [address]. [place], [place] [id number] [place] [phone] Care Team Providers Care Vehicle Operator Name Role Phone Ezra Peralta Primary Care Provider + Encounter Details Date Type Department Care Team (Latest Contact Info) Description 12/20/2021 Travel Social History Tobacco Use Types Packs/Day Years [...] PM CDT documented as of this encounter Plan of Treatment Not on file documented as of this encounter Visit Diagnoses Not on filedocumented in this encounter Care Teams Vehicle Operator Relationship Specialty Start Date End Date Ezra Peralta PA PCP - General PHYSICIAN BREAD OVEN OPERATOR 12/20/21 documented as of this encounter
--- OUTSIDE RECORDS SUMMARY | 2024-03-26 05:40 | XMS_ITS | Encounter Summary ---
Author Organization [facility] Healthcare Address [address] [place] [address] Care Team Providers Care Plastic Dolls Mold Filler Name Role Phone Cristobal Agustin MD Primary Care Provider Reason for Visit * Reason Comments PT Treatment * Physical Therapy (Routine) - Closed Specialty Diagnoses / Procedures Referred By Contac t Referred To Contact Physical Therapy Diagnoses Paraplegia, unspecified (HCC) Cristobal Agustin MD [address] [place] [phone] Phone: tel: fax: [facility] OP Physical Therapy [address] [place] [address] Phone: tel: fax: Referral ID Status Reason Start Date Expiration Date V isits Requested Visits Authorized [id number] Closed Evaluate and Treat 08/27/2022 03/13/2023 6 99 Encounter Details Date Type Department Care Team (Late st Contact Info) Description 11/26/2022 9:15 AM CDT Therapy [facility] OP Physical Therapy [address] [place] [phone] Les Galdamez, STRAW HAT PLUNGER OPERATOR Paraplegia, complete (HCC) (Primary Dx) Social History Tobacco Use Types Packs/Day Years Used Date Smoking Tobacco: Every Day Cigarettes Smokeless Tobacco: Never PHQ-2 Answer Date Recorded PHQ-2 Total Score (If total score is 3 or more points, staff should administer the PHQ-9) 2 04/27/2022 Sex and Gender Information Value Date Recorded Sex Assigned at Not on file 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 with Min A [...] pt will follow up with appointments with [facility] [email or web address] and [employer] to pursue additional community [...] and then potentially walking again NOT MET 8-22-23 PT Eval Date: 08/27/22 PROGRESS NOTE: 10-05-22, 11-02-22 Orders : 10/08/22, 11-30-22 date date Date Date Date Date Date Date Date 10-22-22 10-26-22 10/28/22 11-02-22 11/05/22 11/10/22 11/12/22 11/17/22 11-26-22 Visit Number 12 13 14 15 16 17 18 19 20 5 min late 10 min late ADDITIONAL [...] attachments end of RX for cardiovascular endurance L5 x 15 min LE and UE with legs braced Mat table Long sitting catch and open [...] wall - Green TB Done and freedom employment trainer Done with freedom employment trainer today; Stander: ball resistance 4# ball over head, press out, diagnols, and round about 6# ball over head,press out, diagnols, and round about 6# ball over head, press out, diagnols, and round about 6# Ball overhead press, diagnols, chest press, round abouts NT time 6# Ball overhead press, diagnols, chest press, round abouts, catch with STRAW HAT PLUNGER OPERATOR Performed without upper chest support strap [...] nu-step transfers without sliding board Progress Note/Re-Cert [facility] 11-02-22 * Les Galdamez, ÁNGEL - 11/26/2022 9:15 AM CDT Images from the original note were not included. Physical Therapy Visit/Daily Note 11/26/2022 Solo Miller 1985 ICD-9-CM ICD-10-CM 1. Paraplegia, complete ([facility]) 344.1 G82.21 Subjective: Pt reports he has constant LB pain no matter what position he is in. Pt states that he is going to [facility], and he is going there later today. States that he always usually has pain when asked if he has pain. Pain today is 5/10. Changes since last visit include none reported Objective: Objective Measurement/Observation: Pt performing transfers independently. Pt performed UE exerciseson [place] employment trainer and Nustep exercisers with LE supported by bracing in machine. Patient girlfriend present for treatment. Specific exercises [...] in order to progress towards functional goals. [facility] ATTENTION PHYSICIAN If you are [...] Primary documented in this encounter Care Teams Plastic Dolls Mold Filler Relationship Specialty Start Date End Date Cristobal Agustin MD PCP - General Gastroenterology 03/26/22 documented as of this encounter
--- OUTSIDE RECORDS SUMMARY | 2024-03-26 05:40 | XMS_ITS | Encounter Summary ---
Author Organization [facility] Healthcare Address [address] [place] [address] Care Team Providers Care Escort Service Attendant Name Role Phone Clinic, Pcp Primary Care Provider Unavailabl e Reason for Visit * Reason Onset Date Comments No Show 12/10/2021 Encounter Details Date Type Department Care Team (Late st Contact Info) Description 12/10/[address] 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 Attempted to call numbers provided although unable to get through. Sharath Gonzalez OT 12/10/21 2:24 PM documented in this encounter Plan of Treatment Not on file documented as of this encounter Visit Diagnoses Not on filedocumented in this encounter Care Teams Escort Service Attendant Relationship Specialty Start Date End Date Clinic, Pcp PCP - General 07/14/16 03/25/22 documented as of this encounter
--- OUTSIDE RECORDS SUMMARY | 2024-03-26 05:40 | XMS_ITS | Encounter Summary ---
Author Organization [facility] Healthcare Address [address] [place] [address] Care Team Providers Care Police Lieutenant Name Role Phone Cristobal Agustin MD Primary Care Provider Reason for Visit * Reason Comments PT Treatment * Physical Therapy (Routine) - Closed Specialty Diagnoses / Procedures Referred By Contac t Referred To Contact Physical Therapy Diagnoses Paraplegia, unspecified (HCC) Cristobal Agustin MD [address] [place] [address] Phone: tel: fax: [facility] OP Physical Therapy [address] [place] [address] Phone: tel: fax: Referral ID Status Reason Start Date Expiration Date V isits Requested Visits Authorized [id number] Closed Evaluate and Treat 08/27/2022 03/13/2023 6 99 Encounter Details Date Type Department Care Team (Late st Contact Info) Description 09/15/2022 10:00 AM CDT Therapy [facility] OP Physical Therapy [address] [place] [phone] Ashley Jones PTA Paraplegia, unspecified (HCC) (Primary [...] file Legal Sex Male 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 Paraplegia, [...] and revised). 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 supervisor // bars with Min A for knee [...] 10/08/22 Date Date Date Date Date Date 08/27/22 09/01/2208/282209/10/22 09/08/22 09/15/22 Visit Number 1 2 3 4 5 6 ADDITIONAL HEP SHEETS ISSUED Late for treatrment Nu Step (foot straps and knee straps) 10 min L4 L 4 10 min B LE attachments L5 10 min arms and legs (Attachment) Stander X 12 min Standing frame x25 min Stander for 15 min Stand 20 min and did core and UE ex's (see below) Stander: T band rows Black x10 Stander: ball resistance 4 lbs ball: overhead Side to side diagonals Core Strengthening -half bosu sit ups [...] Progress Note/Re-Cert * Ashley Jones PTA - 09/15/2022 10:00 AM CDT Images from the original note were not included. Physical Therapy Visit/Daily Note 09/15/2022 Solo Miller 1985 ICD-9-CM ICD-10-CM 1. Paraplegia, unspecified (HCC) 344.1 G82.20 Subjective: Pt is reporting continued difficulty with standing because of paralysis. Pt commented that he has been doing long sitting trunk ex's as home like he has been doing in PT. Pain today is 2-3/10. (Low back, leg and abdominal pain) pt reports that his right side is strongerthan his left side. Objective: Objective Measurement/Observation Pt arrived to PT in manual W/C. Pt is independent with transfers with and without slide board. . Pt used the Nustep for arms and legs today followed by standing in the stander. Pt performed trunk and core strengthening ex's standing in the stander using t-band and weighted balls for resistance. Pt received 43 minutes of treatment today during this session. Specific exercises and treatment interventions are outlined on exercise worksheet document. Treatment Performed on This Visit: Manual Therapy (body part and techniques): NT Therapeutic Procedure/Exercise: Pt used the Nustep for arms and legs (legs straps) and standing in the stander Modalities: NT HEP given: pt reports doing seated back extensions, long sitting core ex's Patient education: NT Assessment: Patient works hard in PT and is motivated. Patient demonstrates Bilat LE paralysis. Patient would benefit from additional skilled therapy services and demonstrates good prognosis to achieve stated goals. Goals Addressed This Visit: STGs Plan: Patient would benefit from the following modification on next visit: cont with current program Therapy will continue to address these impairments in order to progress towards functional goals. Ashley Jones PTA [facility] ATTENTION PHYSICIAN If [...] Primary documented in this encounter Care Teams Police Lieutenant Relationship Specialty Start Date End Date Cristobal Agustin MD PCP - General Gastroenterology 03/26/22 documented as of this encounter
--- OUTSIDE RECORDS SUMMARY | 2024-03-26 05:40 | XMS_ITS | Encounter Summary ---
Author Organization [facility] Healthcare Address [address] [place] [address] Care Team Providers Care Animal Researcher Name Role Phone Cristobal Agustin MD Primary Care Provider Reason for Visit * Reason Comments PT Treatment * Physical Therapy (Routine) - Closed Specialty Diagnoses / Procedures Referred By Contac t Referred To Contact Physical Therapy Diagnoses Paraplegia, unspecified (HCC) Cristobal Agustin MD [address] [place] [id number] Phone: tel: fax: [facility] OP Physical Therapy [address] [place] [id number] Phone: tel: fax: Referral ID Status Reason Start Date Expiration Date V isits Requested Visits Authorized [id number] Closed Evaluate and Treat 08/27/2022 03/13/2023 6 99 Encounter Details Date Type Department Care Team (Late st Contact Info) Description 09/01/2022 9:15 AM CDT Therapy 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 Paraplegia, [...] and revised). 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 to pressing machine tender // bars with Min A [...] 10/08/22 Date Date Date Date Date 08/27/22 09/01/22 Visit Number 1 2 ADDITIONAL HEP SHEETS ISSUED Nu Step (foot straps and knee straps) 10 min L4 L 4 10 min B LE attachments Stander X 12 min Core Strengthening -half bosu sit ups -pertubations in all directions -pelvic tilts -ta bracing with resistance from therapist X 10 Scapular Strengthening -rows -shoulder extensions -lat pull downs -Chest press Transfers Progress Note/Re-Cert * Lorrie Pfeiffer PTA - 09/01/2022 9:15 AM CDT Images from the original note were not included. Physical Therapy Visit/Daily Note 09/01/2022 Solo Miller 1985 ICD-9-CM ICD-10-CM 1. Paraplegia, unspecified (HCC) 344.1 G82.20 VINOD CRISTOBAL IBANEZ Subjective: Pt reports that he took pain medicine this morning.. Pt is reporting continued difficulty with standing, trunk control and trunk pain Pain today is 5-6/10. Changes since last visit include none reported. Objective: Objective Measurement/Observation: pt arrives in self propelled wc. Pt arrives with his long term care administrator.Transfers to and from nustep SBA with sliding board. Pt rides nustep with B leg attachments. Pt transfers with sliding board to stander SBA. Stands x12 min without difficulty. Would have stood longerbut ran out of time. Pt received 45 minutes of treatment today during this session. Specific exercises and treatment interventions are outlined on exercise worksheet document. Treatment Performed on This Visit: Manual Therapy (body part and techniques): no Therapeutic Procedure/Exercise: WB in stander and nustep Modalities: no HEP given:no Patient education: working on trunk extension in stander Assessment: Patient tolerated today's treatment without incident. Patient demonstrates core and B LE weakness which is contributing to difficulty with standing.. Patient would benefit from additional skilled therapy services and demonstrates good prognosis to achieve stated goals. Goals Addressed This Visit: STG's Plan: Patient would benefit from the following modification on next visit: cont to progress. Therapy will continue to address these impairments in order to progress towards functional goals. Lorrie Pfeiffer,[facility] Outpatient Occup [facility] ATTENTION PHYSICIAN If you [...] Primary documented in this encounter Care Teams Animal Researcher Relationship Specialty Start Date End Date Cristobal Agustin MD PCP - General Gastroenterology 03/26/22 documented as of this encounter
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
--- OUTSIDE RECORDS SUMMARY | 2024-03-26 05:40 | XMS_ITS | Encounter Summary ---
Author Organization [facility] Healthcare Address [address] [place] [address] Care Team Providers Care Records Management Analyst Name Role Phone Cristobal Agustin MD Primary Care Provider Encounter Details Date Type Department Care Team (Late st Contact Info) Description 10/05/2022 Plan of Care Documentation [facility] OP Physical Therapy [address] [place] [id number] Social History Tobacco Use Types Packs/Day Years Used Date Smoking Tobacco: Every Day Cigarettes Smokeless Tobacco: Never PHQ-2 Answer Date Recorded PHQ-2 Total Score (If total score is 3 or more points, staff should administer the PHQ-9) 2 04/27/2022 Sex and Gender Information Value Date Recorded Sex Assigned at Not on file 

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
--- OUTSIDE RECORDS SUMMARY | 2024-03-26 05:41 | XMS_ITS | Encounter Summary ---
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 Gender Identity Not on file Sexual Orientation Not on file documented as of this encounter Plan of Treatment Not on file documented as of this encounter Procedures Procedure Name Priority Date/Time Associated Diagnosis Comments CS GLUCOSE Routine Gen Lab 10/26/2021 8:15 AM CDT EGFR Routine Gen Lab 10/26/2021 8:15 AM CDT DIFFERENTIAL AUTO Routine Gen Lab 10/26/2021 8:1 5 AM CDT COMPREHENSIVE METABOLIC PANEL WITHOUT GLUCOSE (OUTREACH) Routine Gen Lab 10/26/2021 8:15 AM CDT CBC WITH AUTO DIFFERENTIAL Routine Gen Lab 10/26/2021 8:15 AM CDT CS GLUCOSE Routine Gen Lab 10/22/2021 5:48 AM CDT EGFR Routine Gen Lab 10/22/2021 5:48 AM CDT DIFFERENTIAL AUTO Routine Gen Lab 10/22/2021 5:4 8 AM CDT COMPREHENSIVE METABOLIC PANEL WITHOUT GLUCOSE (OUTREACH) Routine Gen Lab 10/22/2021 5:48 AM CDT CBC WITH AUTO DIFFERENTIAL Routine Gen Lab 10/22/2021 5:48 AM CDT CS GLUCOSE Routine Gen Lab 10/19/2021 6:01 AM CDT EGFR Routine Gen Lab 10/19/2021 6:01 AM CDT DIFFERENTIAL AUTO Routine Gen Lab 10/19/2021 6:0 1 AM CDT COMPREHENSIVE METABOLIC PANEL WITHOUT GLUCOSE (OUTREACH) Routine Gen Lab 10/19/2021 6:01 AM CDT CBC WITH AUTO DIFFERENTIAL Routine Gen Lab 10/19/2021 6:01 AM CDT VITAMIN D 25 HYDROXY Routine Gen Lab 10/19/2021 6:01 AM CDT CS GLUCOSE STAT 10/16/2021 11:39 AM CDT EGFR STAT 10/16/2021 11:39 AM CDT DIFFERENTIAL AUTO STAT 10/16/2021 11: 39 AM CDT COMPREHENSIVE METABOLIC PANEL WITHOUT GLUCOSE (OUTREACH) STAT 10/16/2021 11:39 AM CDT CBC WITH AUTO DIFFERENTIAL STAT 10/16/2021 11:39 AM CDT CS GLUCOSE Routine Gen Lab 10/15/2021 5:58 AM CDT EGFR Routine Gen Lab 10/15/2021 5:58 AM CDT DIFFERENTIAL AUTO Routine Gen Lab 10/15/2021 5:5 8 AM CDT COMPREHENSIVE METABOLIC PANEL WITHOUT GLUCOSE (OUTREACH) Routine Gen Lab 10/15/2021 5:58 AM CDT CBC WITH AUTO DIFFERENTIAL Routine Gen Lab 10/15/2021 5:58 AM CDT CS GLUCOSE Routine Gen Lab 10/14/2021 5:31 AM CDT EGFR Routine Gen Lab 10/14/2021 5:31 AM CDT DIFFERENTIAL AUTO Routine Gen Lab 10/14/2021 5:3 1 AM CDT COMPREHENSIVE METABOLIC PANEL WITHOUT GLUCOSE (OUTREACH) Routine Gen Lab 10/14/2021 5:31 AM CDT CBC WITH AUTO DIFFERENTIAL Routine Gen Lab 10/14/2021 5:31 AM CDT VITAMIN D 25 HYDROXY Routine Gen Lab 10/14/2021 5:31 AM CDT documented in this encounter Results * eGFR (10/26/2021 8:15 AM CDT) eGFR >90 90 - 130 mL/min/1. [address] [facility] Comment: Interpretive Data Reference Interval Normal [...] interpretive data was last reviewed 2021. Blood 10/26/2021 8:15 AM CDT 10/26/2021 12:20 PM CDT us Notinfile Unknown LAB BLOOD ORDERABLES Final Res ult [facility] One [facility] Department [place] [address] * (ABNORMAL) Comprehensive metabolic panel, without glucose (Outreach) (10/26/2021 8:15 AM CDT) Sodium 141 135 - 145 mmol/L [facility] Potassium, pl 4.5 3.3 - 4.9 mmol/L [facility] Chloride 102 97 - 110 mmol/L [facility] CO2 29 22 - 32 mmol/L [facility] Anion gap 10 2 - 15 mmol/L [facility] BUN 13 8 - 25 mg/dL [facility] Creatinine 0.94 0.80 - 1.30 mg/dL [facility] Calcium 9.5 8.5 - 10.3 mg/dL [facility] Protein, pl 7.0 6.5 - 8.5 g/dL [facility] Albumin 3.5 3.5 - 5.0 g/dL [facility] Bilirubin, total 0.2 0.1 - 1.2 mg/dL [facility] Alk phos 187(H) 40 - 130 Units/L [facility] AST 141(H) 10 - 50 Units/L [facility] ALT 302(H) 7 - 55 Units/L [facility] Blood 10/26/2021 8:15 AM CDT 10/26/2021 11:59 AM CDT us Notinfile Unknown LAB BLOOD ORDERABLES Final Res ult Performing Organization Address [facility] Co de Phone Number [facility] Department [place] [address] * CS GLUCOSE (10/26/2021 8:15 AM CDT) Glucose 95 70 - 199 mg/dL [facility] Comment: Interpretive Data Fasting glucose >/= [...] interpretive data was last revised 2017. Blood 10/26/2021 8:15 AM CDT 10/26/2021 11:59 AM CDT us Notinfile Unknown LAB BLOOD ORDERABLES Final Res ult Performing Organization Address [facility] de Phone Number [facility] Department [place] [address] * Differential, auto (10/26/2021 8:15 AM CDT) Neutrophil abs 3.1 1.7 - 6.5 K/cumm [facility] Imm gran abs 0.0 0.0 - 0.1 K/cumm [facility] Lymphocyte abs 1.7 0.8 - 3.3 K/cumm [facility] Monocyte abs 0.7 0.2 - 0.8 K/cumm [facility] Eosinophil abs 0.1 0.0 - 0.5 K/cumm [facility] Basophil abs 0.1 0.0 - 0.1 K/cumm [facility] Neutrophil pct 54.1 % [facility] Comment: Interpretive Data Percent cell count reference ranges are not reported, since discordance with absolute values may lead to misinterpretation of CBC data. Current Interpretive Data was last revised on 2017. Imm gran pct 0.4 % [facility] Comment: Interpretive Data Percent cell count reference ranges are not reported, since discordance with absolute values may lead to misinterpretation of CBC data. Current Interpretive Data was last revised on 2017. Lymphocyte pct 30.0 % [facility] Comment: Interpretive Data Percent cell count reference ranges are not reported, since discordance with absolute values may lead to misinterpretation of CBC data. Current Interpretive Data was last revised on 2017. Monocyte pct 12.0 % [facility] Comment: Interpretive Data Percent cell count reference ranges are not reported, since discordance with absolute values may lead to misinterpretation of CBC data. Current Interpretive Data was last revised on 2017. Eosinophil pct 2.3 % [facility] Comment: Interpretive Data Percent cell count reference ranges are not reported, since discordance with absolute values may lead to misinterpretation of CBC data. Current Interpretive Data was last revised on 2017. Basophil pct 1.2 % [facility] Comment: Interpretive Data Percent cell count reference ranges are not reported, since discordance with absolute values may lead to misinterpretation of CBC data. Current Interpretive Data was last revised on 2017. Blood 10/26/2021 8:15 AM CDT 10/26/2021 11:59 AM CDT us Notinfile Unknown LAB BLOOD ORDERABLES Final Res ult [facility] One [facility] Department [place] [address] * (ABNORMAL) CBC with auto differential (10/26/2021 8:15 AM CDT) WBC 5.7 3.8 - 9.9 K/cumm [facility] Hgb 10.1(L) 13.0 - 17.5 g/dL [facility] Hct 32.4(L) 38.9 - 50.3 % [facility] Plt 500(H) 150 - 400 K/cumm [facility] MPV 10.0 9.1 - 12.3 fL [facility] RBC 3.49(L) 4.30 - 5.80 M/cumm [facility] MCV 92.8 81.3 - 96.4 fL [facility] MCH 28.9 27.1 - 33.3 pg [facility] MCHC 31.2(L) 32.3 - 35.7 g/dL [facility] RDW CV 16.6(H) 11.1 - 14.9 % [facility] RDW SD 56.5(H) 35.7 - 48.1 fL [facility] NRBC abs 0.00 0.00 - 0.01 K/cumm [facility] Blood 10/26/2021 8:15 AM CDT 10/26/2021 11:59 AM CDT us Notinfile Unknown LAB BLOOD ORDERABLES Final Res ult [facility] One [facility] Department [place] [address] * eGFR (10/22/2021 5:48 AM CDT) eGFR >90 90 - 130 mL/min/1. 73 m2 [facility] Comment: Interpretive Data Reference Interval Normal [...] interpretive data was last reviewed 2021. Blood 10/22/2021 5:48 AM CDT 10/22/2021 6:36 AM CDT us Notinfile Unknown LAB BLOOD ORDERABLES Final Res ult [facility] Department [place] [address] * (ABNORMAL) Comprehensive metabolic panel, without glucose (Outreach) (10/22/2021 5:48 AM CDT) Sodium 138 135 - 145 mmol/L [facility] Potassium, pl 4.0 3.3 - 4.9 mmol/L [facility] Chloride 103 97 - 110 mmol/L [facility] CO2 26 22 - 32 mmol/L [facility] Anion gap 9 2 - 15 mmol/L [facility] BUN 14 8 - 25 mg/dL [facility] Creatinine 0.95 0.80 - 1.30 mg/dL [facility] Calcium 9.2 8.5 - 10.3 mg/dL [facility] Protein, pl 6.8 6.5 - 8.5 g/dL [facility] Albumin 3.2(L) 3.5 - 5.0 g/dL [facility] Bilirubin, total 0.2 0.1 - 1.2 mg/dL [facility] Alk phos 198(H) 40 - 130 Units/L [facility] AST 240(H) 10 - 50 Units/L [facility] ALT 318(H) 7 - 55 Units/L [facility] Blood 10/22/2021 5:48 AM CDT 10/22/2021 6:31 AM CDT us Notinfile Unknown LAB BLOOD ORDERABLES Final Res ult Performing Organization Address [facility] de Phone Number [facility] Department [place] [address] * CS GLUCOSE (10/22/2021 5:48 AM CDT) Glucose 114 70 - 199 mg/dL [facility] Comment: Interpretive Data Fasting glucose >/= [...] interpretive data was last revised 2017. Blood 10/22/2021 5:48 AM CDT 10/22/2021 6:31 AM CDT us Notinfile Unknown LAB BLOOD ORDERABLES Final Res ult Performing Organization Address [facility] de Phone Number [facility] Department [place] [address] * Differential, auto (10/22/2021 5:48 AM CDT) Neutrophil abs 3.6 1.7 - 6.5 K/cumm [facility] Imm gran abs 0.0 0.0 - 0.1 K/cumm [facility] Lymphocyte abs 1.1 0.8 - 3.3 K/cumm [facility] Monocyte abs 0.7 0.2 - 0.8 K/cumm [facility] Eosinophil abs 0.1 0.0 - 0.5 K/cumm [facility] Basophil abs 0.0 0.0 - 0.1 K/cumm [facility] Neutrophil pct 63.9 % [facility] Comment: Interpretive Data Percent cell count reference ranges are not reported, since discordance with absolute values may lead to misinterpretation of CBC data. Current Interpretive Data was last revised on 2017. Imm gran pct 0.4 % [facility] Comment: Interpretive Data Percent cell count reference ranges are not reported, since discordance with absolute values may lead to misinterpretation of CBC data. Current Interpretive Data was last revised on 2017. Lymphocyte pct 20.4 % [facility] Comment: Interpretive Data Percent cell count reference ranges are not reported, since discordance with absolute values may lead to misinterpretation of CBC data. Current Interpretive Data was last revised on 2017. Monocyte pct 12.4 % [facility] Comment: Interpretive Data Percent cell count reference ranges are not reported, since discordance with absolute values may lead to misinterpretation of CBC data. Current Interpretive Data was last revised on 2017. Eosinophil pct 2.2 % [facility] Comment: Interpretive Data Percent cell count reference ranges are not reported, since discordance with absolute values may lead to misinterpretation of CBC data. Current Interpretive Data was last revised on 2017. Basophil pct 0.7 % [facility] Comment: Interpretive Data Percent cell count reference ranges are not reported, since discordance with absolute values may lead to misinterpretation of CBC data. Current Interpretive Data was last revised on 2017. Blood 10/22/2021 5:48 AM CDT 10/22/2021 6:31 AM CDT us Notinfile Unknown LAB BLOOD ORDERABLES Final Res ult [facility] Department of Laboratories [place], [place] [id number] * (ABNORMAL) CBC with auto differential (10/22/2021 5:48 AM CDT) WBC 5.6 3.8 - 9.9 K/cumm [facility] Hgb 9.3(L) 13.0 - 17.5 g/dL [facility] Hct 28.7(L) 38.9 - 50.3 % [facility] Plt 652(H) 150 - 400 K/cumm [facility] MPV 9.2 9.1 - 12.3 fL [facility] RBC 3.18(L) 4.30 - 5.80 M/cumm [facility] MCV 90.3 81.3 - 96.4 fL [facility] MCH 29.2 27.1 - 33.3 pg [facility] MCHC 32.4 32.3 - 35.7 g/dL [facility] RDW CV 16.6(H) 11.1 - 14.9 % [facility] RDW SD 54.7(H) 35.7 - 48.1 fL [facility] NRBC abs 0.00 0.00 - 0.01 K/cumm [facility] Blood 10/22/2021 5:48 AM CDT 10/22/2021 6:31 AM CDT us Notinfile Unknown LAB BLOOD ORDERABLES Final Res ult Performing Organization Address City/[facility]/ZIP Co de Phone Number [facility] Department [place] [facility] [place] [address] * (ABNORMAL) Vitamin D 25 hydroxy (10/19/2021 6:01 AM CDT) Pathologist [facility] Vitamin D 25-OH 21(L) 30 - 80 ng/mL [facility] Blood 10/19/2021 6:01 AM CDT 10/19/2021 10:46 AM CDT us Notinfile Unknown LAB BLOOD ORDERABLES Final Res ult [facility] [place] [address] * (ABNORMAL) eGFR (10/19/2021 6:01 AM CDT) Pathologist [facility] eGFR 84(L) 90 - 130 mL/min/1. 73 m2 [facility] Comment: Interpretive Data Reference Interval Normal [...] interpretive data was last reviewed 2021. Blood 10/19/2021 6:01 AM CDT 10/19/2021 10:50 AM CDT us Notinfile Unknown LAB BLOOD ORDERABLES Final Res ult [facility] One [facility] Department [place] [address] * (ABNORMAL) Comprehensive metabolic panel, without glucose (Outreach) (10/19/2021 6:01 AM CDT) Sodium 136 135 - 145 mmol/L [facility] Potassium, pl 4.3 3.3 - 4.9 mmol/L [facility] Chloride 100 97 - 110 mmol/L [facility] CO2 25 22 - 32 mmol/L [facility] Anion gap 11 2 - 15 mmol/L [facility] BUN 17 8 - 25 mg/dL [facility] Creatinine 1.15 0.80 - 1.30 mg/dL [facility] Calcium 9.0 8.5 - 10.3 mg/dL [facility] Protein, pl 6.9 6.5 - 8.5 g/dL [facility] Albumin 3.3(L) 3.5 - 5.0 g/dL [facility] Bilirubin, total 0.3 0.1 - 1.2 mg/dL [facility] Alk phos 197(H) 40 - 130 Units/L [facility] AST 91(H) 10 - 50 Units/L [facility] ALT 201(H) 7 - 55 Units/L [facility] Blood 10/19/2021 6:01 AM CDT 10/19/2021 10:46 AM CDT us Notinfile Unknown LAB BLOOD ORDERABLES Final Res ult Performing Organization Address [facility] de Phone Number [facility] One [facility] Department [place] [address] * CS GLUCOSE (10/19/2021 6:01 AM CDT) [employer] Signature Glucose 103 70 - 199 mg/dL [facility] Comment: Interpretive Data Fasting glucose >/= [...] interpretive data was last revised 2017. Blood 10/19/2021 6:01 AM CDT 10/19/2021 10:46 AM CDT us Notinfile Unknown LAB BLOOD ORDERABLES Final Res ult Performing Organization Address [facility]/State/ZIP Co de Phone Number [facility] Department [place] [address] * (ABNORMAL) Differential, auto (10/19/2021 6:01 AM CDT) Neutrophil abs 5.2 1.7 - 6.5 K/cumm [facility] Imm gran abs 0.1 0.0 - 0.1 K/cumm [facility] Lymphocyte abs 1.4 0.8 - 3.3 K/cumm [facility] Monocyte abs 0.9(H) 0.2 - 0.8 K/cumm [facility] Eosinophil abs 0.2 0.0 - 0.5 K/cumm [facility] Basophil abs 0.1 0.0 - 0.1 K/cumm [facility] Neutrophil pct 66.6 % [facility] Comment: Interpretive Data Percent cell count reference ranges are not reported, since discordance with absolute values may lead to misinterpretation of CBC data. Current Interpretive Data was last revised on 2017. Imm gran pct 0.8 % [facility] Comment: Interpretive Data Percent cell count reference ranges are not reported, since discordance with absolute values may lead to misinterpretation of CBC data. Current Interpretive Data was last revised on 2017. Lymphocyte pct 18.3 % [facility] Comment: Interpretive Data Percent cell count reference ranges are not reported, since discordance with absolute values may lead to misinterpretation of CBC data. Current Interpretive Data was last revised on 2017. Monocyte pct 11.2 % [facility] Comment: Interpretive Data Percent cell count reference ranges are not reported, since discordance with absolute values may lead to misinterpretation of CBC data. Current Interpretive Data was last revised on 2017. Eosinophil pct 2.2 % [facility] Comment: Interpretive Data Percent cell count reference ranges are not reported, since discordance with absolute values may lead to misinterpretation of CBC data. Current Interpretive Data was last revised on 2017. Basophil pct 0.9 % [facility] Comment: Interpretive Data Percent cell count reference ranges are not reported, since discordance with absolute values may lead to misinterpretation of CBC data. Current Interpretive Data was last revised on 2017. Blood 10/19/2021 6:01 AM CDT 10/19/2021 10:46 AM CDT us Notinfile Unknown LAB BLOOD ORDERABLES Final Res ult Performing Organization Address [facility] de Phone Number [facility] [place] [address] * (ABNORMAL) CBC with auto differential (10/19/2021 6:01 AM CDT) WBC 7.9 3.8 - 9.9 K/cumm [facility] Hgb 8.9(L) 13.0 - 17.5 g/dL [facility] Hct 28.3(L) 38.9 - 50.3 % [facility] Plt 741(H) 150 - 400 K/cumm [facility] MPV 9.4 9.1 - 12.3 fL [facility] RBC 3.14(L) 4.30 - 5.80 M/cumm [facility] MCV 90.1 81.3 - 96.4 fL [facility] MCH 28.3 27.1 - 33.3 pg [facility] MCHC 31.4(L) 32.3 - 35.7 g/dL [facility] RDW CV 16.3(H) 11.1 - 14.9 % [facility] RDW SD 53.3(H) 35.7 - 48.1 fL [facility] NRBC abs 0.00 0.00 - 0.01 K/cumm [facility] Blood 10/19/2021 6:01 AM CDT 10/19/2021 10:46 AM CDT us Notinfile Unknown LAB BLOOD ORDERABLES Final Res ult Performing Organization Address City/[facility]/ZIP Co de Phone Number [facility] [place] [address] * eGFR (10/16/2021 11:39 AM CDT) [facility] eGFR >90 90 - 130 mL/min/1. 73 m2 [facility] Comment: Interpretive Data Reference Interval Normal [...] interpretive data was last reviewed 2021. Blood 10/16/2021 11:3 9 AM CDT 10/16/2021 2:14 PM CDT us Notinfile Unknown LAB BLOOD ORDERABLES Final Res ult [facility] Department [place] [address] * (ABNORMAL) Comprehensive metabolic panel, without glucose (Outreach) (10/16/2021 11:39 AM CDT) [facility] Sodium 136 135 - 145 mmol/L [facility] Potassium, pl 4.5 3.3 - 4.9 mmol/L [facility] Chloride 100 97 - 110 mmol/L [facility] CO2 28 22 - 32 mmol/L [facility] Anion gap 8 2 - 15 mmol/L [facility] BUN 16 8 - 25 mg/dL [facility] Creatinine 1.02 0.80 - 1.30 mg/dL [facility] Calcium 9.5 8.5 - 10.3 mg/dL [facility] Protein, pl 7.4 6.5 - 8.5 g/dL [facility] Albumin 3.5 3.5 - 5.0 g/dL [facility] Bilirubin, total 0.3 0.1 - 1.2 mg/dL [facility] Alk phos 246(H) 40 - 130 Units/L [facility] AST 188(H) 10 - 50 Units/L [facility] ALT 328(H) 7 - 55 Units/L [facility] Blood 10/16/2021 11:3 9 AM CDT 10/16/2021 2:07 PM CDT us Notinfile Unknown LAB BLOOD ORDERABLES Final Res ult [facility] Department [place] [address] * CS GLUCOSE (10/16/2021 11:39 AM CDT) [facility] Glucose 101 70 - 199 mg/dL [facility] Comment: Interpretive Data Fasting glucose >/= [...] interpretive data was last revised 2017. Blood 10/16/2021 11:3 9 AM CDT 10/16/2021 2:07 PM CDT us Notinfile Unknown LAB BLOOD ORDERABLES Final Res ult [facility] Department [place] [address] * (ABNORMAL) Differential, auto (10/16/2021 11:39 AM CDT) Neutrophil abs 7.4(H) 1.7 - 6.5 K/cumm [facility] Imm gran abs 0.1 0.0 - 0.1 K/cumm [facility] Lymphocyte abs 1.2 0.8 - 3.3 K/cumm [facility] Monocyte abs 1.2(H) 0.2 - 0.8 K/cumm [facility] Eosinophil abs 0.2 0.0 - 0.5 K/cumm [facility] Basophil abs 0.1 0.0 - 0.1 K/cumm [facility] Neutrophil pct 72.7 % [facility] Comment: Interpretive Data Percent cell count reference ranges are not reported, since discordance with absolute values may lead to misinterpretation of CBC data. Current Interpretive Data was last revised on 2017. Imm gran pct 1.4 % [facility] Comment: Interpretive Data Percent cell count reference ranges are not reported, since discordance with absolute values may lead to misinterpretation of CBC data. Current Interpretive Data was last revised on 2017. Lymphocyte pct 11.8 % [facility] Comment: Interpretive Data Percent cell count reference ranges are not reported, since discordance with absolute values may lead to misinterpretation of CBC data. Current Interpretive Data was last revised on 2017. Monocyte pct 11.6 % [facility] Comment: Interpretive Data Percent cell count reference ranges are not reported, since discordance with absolute values may lead to misinterpretation of CBC data. Current Interpretive Data was last revised on 2017. Eosinophil pct 1.9 % [facility] Comment: Interpretive Data Percent cell count reference ranges are not reported, since discordance with absolute values may lead to misinterpretation of CBC data. Current Interpretive Data was last revised on 2017. Basophil pct 0.6 % [facility] Comment: Interpretive Data Percent cell count reference ranges are not reported, since discordance with absolute values may lead to misinterpretation of CBC data. Current Interpretive Data was last revised on 2017. Blood 10/16/2021 11:3 9 AM CDT 10/16/2021 2:07 PM CDT us Notinfile Unknown LAB BLOOD ORDERABLES Final Res ult Performing Organization Address [facility] Co de Phone Number [facility] Department [place] [facility] [place] [address] * (ABNORMAL) CBC with auto differential (10/16/2021 11:39 AM CDT) WBC 10.2(H) 3.8 - 9.9 K/cumm [facility] Hgb 8.9(L) 13.0 - 17.5 g/dL [facility] Hct 28.2(L) 38.9 - 50.3 % [facility] Plt 846(H) 150 - 400 K/cumm [facility] MPV 9.5 9.1 - 12.3 fL [facility] RBC 3.04(L) 4.30 - 5.80 M/cumm [facility] MCV 92.8 81.3 - 96.4 fL [facility] MCH 29.3 27.1 - 33.3 pg [facility] MCHC 31.6(L) 32.3 - 35.7 g/dL [facility] RDW CV 16.6(H) 11.1 - 14.9 % [facility] RDW SD 56.3(H) 35.7 - 48.1 fL [facility] NRBC abs 0.00 0.00 - 0.01 K/cumm [facility] Blood 10/16/2021 11:3 9 AM CDT 10/16/2021 2:07 PM CDT us Notinfile Unknown LAB BLOOD ORDERABLES Final Res ult Performing Organization Address City/[facility]/ZIP Co de Phone Number [facility] [place] [facility] [place] [address] * eGFR (10/15/2021 5:58 AM CDT) eGFR >90 90 - 130 mL/min/1. 73 m2 [facility] Comment: Interpretive Data Reference Interval Normal ?>/= [...] interpretive data was last reviewed 2021. Blood 10/15/2021 5:58 AM CDT 10/15/2021 6:38 AM CDT us Notinfile Unknown LAB BLOOD ORDERABLES Final Res ult [facility] Department [place] [address] * (ABNORMAL) Comprehensive metabolic panel, without glucose (Outreach) (10/15/2021 5:58 AM CDT) Pathologist [facility] Sodium 138 135 - 145 mmol/L [facility] Potassium, pl 4.5 3.3 - 4.9 mmol/L [facility] Chloride 103 97 - 110 mmol/L [facility] CO2 27 22 - 32 mmol/L [facility] Anion gap 8 2 - 15 mmol/L [facility] BUN 15 8 - 25 mg/dL [facility] Creatinine 1.05 0.80 - 1.30 mg/dL [facility] Calcium 9.2 8.5 - 10.3 mg/dL [facility] Protein, pl 7.0 6.5 - 8.5 g/dL [facility] Albumin 3.1(L) 3.5 - 5.0 g/dL [facility] Bilirubin, total 0.4 0.1 - 1.2 mg/dL [facility] Alk phos 234(H) 40 - 130 Units/L [facility] AST 215(H) 10 - 50 Units/L [facility] ALT 308(H) 7 - 55 Units/L [facility] Blood 10/15/2021 5:58 AM CDT 10/15/2021 6:34 AM CDT us Notinfile Unknown LAB BLOOD ORDERABLES Final Res ult [facility] One [facility] Department [place] [address] * CS GLUCOSE (10/15/2021 5:58 AM CDT) [facility] Glucose 107 70 - 199 mg/dL [facility] Comment: Interpretive Data Fasting glucose >/= [...] interpretive data was last revised 2017. Blood 10/15/2021 5:58 AM CDT 10/15/2021 6:34 AM CDT us Notinfile Unknown LAB BLOOD ORDERABLES Final Res ult [facility] One [facility] Department [place] [address] * (ABNORMAL) Differential, auto (10/15/2021 5:58 AM CDT) Neutrophil abs 7.5(H) 1.7 - 6.5 K/cumm [facility] gran abs 0.2(H) 0.0 - 0.1 K[facility]cumm [facility] Lymphocyte abs 1.3 0.8 - 3.3 K/cumm [facility] Monocyte abs 1.4(H) 0.2 - 0.8 K/cumm [facility] Eosinophil abs 0.2 0.0 - 0.5 K/cumm [facility] Basophil abs 0.1 0.0 - 0.1 K/cumm [facility] Neutrophil pct 70.3 % [facility] Comment: Interpretive Data Percent cell count reference ranges are not reported, since discordance with absolute values may lead to misinterpretation of CBC data. Current Interpretive Data was last revised on 2017. Imm gran pct 2.2 % [facility] Comment: Interpretive Data Percent cell count reference ranges are not reported, since discordance with absolute values may lead to misinterpretation of CBC data. Current Interpretive Data was last revised on 2017. Lymphocyte pct 12.5 % [facility] Comment: Interpretive Data Percent cell count reference ranges are not reported, since discordance with absolute values may lead to misinterpretation of CBC data. Current Interpretive Data was last revised on 2017. Monocyte pct 12.8 % [facility] Comment: Interpretive Data Percent cell count reference ranges are not reported, since discordance with absolute values may lead to misinterpretation of CBC data. Current Interpretive Data was last revised on 2017. Eosinophil pct 1.7 % [facility] Comment: Interpretive Data Percent cell count reference ranges are not reported, since discordance with absolute values may lead to misinterpretation of CBC data. Current Interpretive Data was last revised on 2017. Basophil pct 0.5 % [facility] Comment: Interpretive Data Percent cell count reference ranges are not reported, since discordance with absolute values may lead to misinterpretation of CBC data. Current Interpretive Data was last revised on 2017. Blood 10/15/2021 5:58 AM CDT 10/15/2021 6:34 AM CDT us Notinfile Unknown LAB BLOOD ORDERABLES Final Res ult Performing Organization Address [facility] de Phone Number [facility] One [facility] Department [place] [address] * (ABNORMAL) CBC with auto differential (10/15/2021 5:58 AM CDT) WBC 10.6(H) 3.8 - 9.9 K/cumm [facility] Hgb 8.5(L) 13.0 - 17.5 g/dL [facility] Hct 26.2(L) 38.9 - 50.3 % [facility] Plt 826(H) 150 - 400 K/cumm [facility] MPV 9.4 9.1 - 12.3 fL [facility] RBC 2.93(L) 4.30 - 5.80 M/cumm [facility] MCV 89.4 81.3 - 96.4 fL [facility] MCH 29.0 27.1 - 33.3 pg [facility] MCHC 32.4 32.3 - 35.7 g/dL [facility] RDW CV 16.3(H) 11.1 - 14.9 % [facility] RDW SD 53.1(H) 35.7 - 48.1 fL [facility] NRBC abs 0.00 0.00 - 0.01 K/cumm [facility] Blood 10/15/2021 5:58 AM CDT 10/15/2021 6:34 AM CDT us Notinfile Unknown LAB BLOOD ORDERABLES Final Res ult Performing Organization Address City/[facility]/ZIP Co de Phone Number [facility] Department [place] [address] * eGFR (10/14/2021 5:31 AM CDT) [facility] eGFR >90 90 - 130 mL/min/1. 73 m2 [facility] Comment: Interpretive Data Reference Interval Normal [...] interpretive data was last reviewed 2021. Blood 10/14/2021 5:31 AM CDT 10/14/2021 6:29 AM CDT us Notinfile Unknown LAB BLOOD ORDERABLES Final Res ult [facility] Kathryn [facility] Department [place] [address] * (ABNORMAL) Comprehensive metabolic panel, without glucose (Outreach) (10/14/2021 5:31 AM CDT) [facility] Sodium 135 135 - 145 mmol/L [facility] Potassium, pl 4.4 3.3 - 4.9 mmol/L [facility] Chloride 98 97 - 110 mmol/L [facility] CO2 28 22 - 32 mmol/L [facility] Anion gap 9 2 - 15 mmol/L [facility] BUN 16 8 - 25 mg/dL [facility] Creatinine 1.06 0.80 - 1.30 mg/dL [facility] Calcium 8.9 8.5 - 10.3 mg/dL [facility] Protein, pl 6.8 6.5 - 8.5 g/dL [facility] Albumin 3.1(L) 3.5 - 5.0 g/dL [facility] Bilirubin, total 0.4 0.1 - 1.2 mg/dL [facility] Alk phos 217(H) 40 - 130 Units/L [facility] AST 159(H) 10 - 50 Units/L [facility] ALT 233(H) 7 - 55 Units/L [facility] Blood 10/14/2021 5:31 AM CDT 10/14/2021 6:29 AM CDT us Notinfile Unknown LAB BLOOD ORDERABLES Final Res ult [facility] Department [place] [facility] [place] [address] * (ABNORMAL) Vitamin D 25 hydroxy (10/14/2021 5:31 AM CDT) Pathologist [facility] Vitamin D 25-OH 8(L) 30 - 80 ng/mL [facility] Blood 10/14/2021 5:31 AM CDT 10/14/2021 6:29 AM CDT us Notinfile Unknown LAB BLOOD ORDERABLES Final Res ult [facility] Department [place] [address] * CS GLUCOSE (10/14/2021 5:31 AM CDT) Pathologist [facility] Glucose 101 70 - 199 mg/dL [facility] Comment: Interpretive Data Fasting glucose >/= [...] interpretive data was last revised 2017. Blood 10/14/2021 5:31 AM CDT 10/14/2021 6:29 AM CDT us Notinfile Unknown LAB BLOOD ORDERABLES Final Res ult [facility] One [facility] Department [place] [address] * (ABNORMAL) Differential, auto (10/14/2021 5:31 AM CDT) [facility] Neutrophil abs 6.3 1.7 - 6.5 K/cumm [facility] Imm gran abs 0.2(H) 0.0 - 0.1 K/cumm [facility] Lymphocyte abs 1.2 0.8 - 3.3 K/cumm [facility] Monocyte abs 1.2(H) 0.2 - 0.8 K/cumm [facility] Eosinophil abs 0.2 0.0 - 0.5 K/cumm [facility] Basophil abs 0.0 0.0 - 0.1 K/cumm [facility] Neutrophil pct 68.7 % [facility] Comment: Interpretive Data Percent cell count reference ranges are not reported, since discordance with absolute values may lead to misinterpretation of CBC data. Current Interpretive Data was last revised on 2017. Imm gran pct 2.4 % [facility] Comment: Interpretive Data Percent cell count reference ranges are not reported, since discordance with absolute values may lead to misinterpretation of CBC data. Current Interpretive Data was last revised on 2017. Lymphocyte pct 13.5 % [facility] Comment: Interpretive Data Percent cell count reference ranges are not reported, since discordance with absolute values may lead to misinterpretation of CBC data. Current Interpretive Data was last revised on 2017. Monocyte pct 12.7 % [facility] Comment: Interpretive Data Percent cell count reference ranges are not reported, since discordance with absolute values may lead to misinterpretation of CBC data. Current Interpretive Data was last revised on 2017. Eosinophil pct 2.3 % [facility] Comment: Interpretive Data Percent cell count reference ranges are not reported, since discordance with absolute values may lead to misinterpretation of CBC data. Current Interpretive Data was last revised on 2017. Basophil pct 0.4 % [facility] Comment: Interpretive Data Percent cell count reference ranges are not reported, since discordance with absolute values may lead to misinterpretation of CBC data. Current Interpretive Data was last revised on 2017. Blood 10/14/2021 5:31 AM CDT 10/14/2021 6:29 AM CDT us Notinfile Unknown LAB BLOOD ORDERABLES Final Res ult [facility] One [facility] Department [place] [address] * (ABNORMAL) CBC with auto differential (10/14/2021 5:31 AM CDT) WBC 9.2 3.8 - 9.9 K/cumm [facility] Hgb 8.4(L) 13.0 - 17.5 g/dL [facility] Hct 25.7(L) 38.9 - 50.3 % [facility] Plt 768(H) 150 - 400 K/cumm [facility] MPV 9.4 9.1 - 12.3 fL [facility] RBC 2.86(L) 4.30 - 5.80 M/cumm [facility] MCV 89.9 81.3 - 96.4 fL [facility] MCH 29.4 27.1 - 33.3 pg [facility] MCHC 32.7 32.3 - 35.7 g/dL [facility] RDW CV 16.3(H) 11.1 - 14.9 % [facility] RDW SD 53.1(H) 35.7 - 48.1 fL [facility] NRBC abs 0.00 0.00 - 0.01 K/cumm [facility] Blood 10/14/2021 5:31 AM CDT 10/14/2021 6:29 AM CDT us Notinfile Unknown LAB BLOOD ORDERABLES Final Res ult [facility] One [facility] [place] [address] documented in this encounter Visit Diagnoses Not on filedocumented in this encounter Care Teams [employer] Relationship Specialty Start Date End Date Clinic, Pcp PCP - General 07/14/16 03/25/22 documented as of this encounter
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
--- OUTSIDE RECORDS SUMMARY | 2024-03-26 05:41 | XMS_ITS | Encounter Summary ---
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
--- OUTSIDE RECORDS SUMMARY | 2024-03-26 05:41 | XMS_ITS | Encounter Summary ---
Author Organization [facility] Healthcare Address [address] [place] [address] Care Team Providers Care Driver Service Technician Name Role Phone Clinic, Pcp Primary Care Provider Unavailabl e Encounter Details Date Type Department Care Team (Late st Contact Info) Description 04/23/2020 8:03 AM CHEMICAL APPLICATOR - 04/23/2020 12:37 PM [facility] Emergency [id number] [place] [address] Unknown, Shanellnfcarlos Hilda Villasenor, DO [address] [facility] [place] [address] Discharge Disposition: Discharge to home or self care Social History Tobacco Use Types Packs/Day Years Used Date Smoking Tobacco: Never Assessed Sex and Gender Information Value Date Recorded Sex Assigned at Not on file Legal Sex Male 7:46 AM CHEMICAL APPLICATOR Gender Identity Not on file Sexual Orientation Not on file documented as of this encounter Last Filed Vital Signs Vital Sign Reading Time Taken Comments Blood Pressure 124/89 04/23/2020 8:10 AM CHEMICAL APPLICATOR Pulse 59 04/23/2020 8:10 AM CHEMICAL APPLICATOR Temperature 36.8 ??C (98.2 ??F) 04/23/2020 8:10 AM CS T Respiratory Rate - - Oxygen Saturation 100% 04/23/2020 8:10 AM CHEMICAL APPLICATOR Inhaled Oxygen Concentration - - Weight 91.5 kg (201 lb 11.6 oz) 04/23/2020 8:10 AM CHEMICAL APPLICATOR Height 177.8 cm (5' 10) 04/23/2020 8:10 AM CHEMICAL APPLICATOR Body Mass Index 28.94 04/23/2020 8:10 AM CHEMICAL APPLICATOR documented in this encounter Medications at Time of Discharge HYDROcodone-aceta minophen (NORCO) 5-325 mg per tablet Take 1 tablet by mouth as needed 04/23/2020 documented as of this encounter Discharge Disposition Disposition Code Departure Means Destination Discharge to home or self care documented in this encounter Plan of Treatment Not on file documented as of this encounter Procedures Procedure Name Priority Date/Time Associated Diagnosis Comments SCAN - LABS 04/24/2020 12:00 AM CHEMICAL APPLICATOR URINALYSIS AND REFLEX TO MICROSCOPIC Routine 04/23/2020 12:[address] LUMBAR SPINE WO CONTRAST 04/23/2020 10:24 AM CHEMICAL APPLICATOR XR SPINE LUMBAR 2 OR 3 VIEWS 04/23/2020 12:00 AM CHEMICAL APPLICATOR documented in this encounter Results * SCAN - LABS (04/24/2020 12:00 AM CHEMICAL APPLICATOR) Narrative 04/24/2020 12:00 AM CHEMICAL APPLICATOR Ordered by an unspecified provider. us Historical Provider Final Res ult * (ABNORMAL) Urinalysis reflex to microscopic (04/23/2020 12:10 PM CHEMICAL APPLICATOR) Ur Collection Type CLEAN CATCH [facility] Urine Color YELLOW YELLOW [facility] Urine Clarity [facility] Urine Glucose (UA) NORMAL NORMAL mg/dL [facility] Urine Bilirubin NEGATIVE NEGATIVE mg/dl [facility] Urine Ketones NEGATIVE NEGATIVE mg/dL [facility] Ur Specific [place] 1.029(H) 1.005 - 1.025 [facility] Urine Blood NEGATIVE NEGATIVE mg/dl [facility] Urine pH 6.0 5.0 - 8.0 [facility] Urine Protein NEGATIVE NEGATIVE mg/dL [facility] Urine Urobilinogen NORMAL NORMAL mg/dL [facility] Urine Nitrite NEGATIVE NEGATIVE [facility] Ur Leukocyte Esterase NEGATIVE NEGATIVE Ben/ul [facility] Ur Microscopic Review Not Indicated [facility] 04/23/2020 12:1 0 PM CHEMICAL APPLICATOR 04/23/2020 12:15 PM CHEMICAL APPLICATOR Narrative [facility] - 04/23/2020 12:25 PM CHEMICAL APPLICATOR jk Clean catch Resulting Agency Comment ER us Hilda Villasenor DO LAB URINE ORDERABLES Final Resu lt [facility] [id number], [facility] [phone] * CT Lumbar Spine WO Contrast (04/23/2020 10:24 AM CHEMICAL APPLICATOR) Anatomical Region Laterality Modality Spine N/A Computed Tomogra phy 04/23/2020 11:4 9 AM CHEMICAL APPLICATOR Narrative 04/23/2020 11:54 AM CHEMICAL APPLICATOR Patient Name: SARA MILLER ?Ordering Dr: Hilda Villasenor DO ?? D.O.B: 1985 ? Exam Date: 04/23/20 ?? 1024 ?? Age: 35 ?Sex: Male ? MR#: [id number] ?? Loc: ? RADIOLOGY REPORT ?? Order #[id number] ?? CT Scan ? CT L-Spine WO IV Contrast ? Signed ?? EXAM DESCRIPTION: ?? CT L-Spine WO IV Contrast ? REASON FOR STUDY: ?? Left-sided back pain with lifting heavy object since ?? 04/22/2020. ? TECHNIQUE: ??Axial images acquired through the lumbar spine without intravenous ?? contrast. ??Reconstructed coronal and sagittal MPR images reviewed. ??All images ?? stored on PACS. ? Automated exposure control was used as a dose optimization technique for this ?? examination. ? COMPARISON: ?? Plain films same day ? FINDINGS: ? SEGMENTATION: ??No transitional anatomy. The lowest well-developed disc space ?? is labeled L5-S1. ? ALIGNMENT: ??Normal. ? VERTEBRAE: ??No fracture. Vertebral heights well-maintained. ? DISC HEIGHT: ??Well-maintained. ? HARDWARE: ??None in the spine. ? INDIVIDUAL DISC LEVELS: ? L3-4 and L4-5 levels demonstrate mild central disc bulge with minimal ?? effacement of anterior thecal sac and minimal narrowing of bilateral neural ?? foramina. ? VISUALIZED RIBS: ??No fractures. ? SOFT TISSUES: ??No significant or acute finding in adjacent soft tissues. ? OTHER: ??No other significant finding. ? IMPRESSION: ?? Minimal disc bulge L 3 4 and L4-5 without spinal or neural ?? foraminal severe stenosis. ? THIS IS AN ELECTRONICALLY VERIFIED FINAL REPORT ?? 04/23/2020 11:54 AM - Electronically signed by Eder Jacobsen M.D. ?? Eder Jacobsen M.D. ? RB ?? D: ??04/23/2020 11:54 AM ?? T: ? Report ID: [id number] ?? Reading Location: ??[id number] ? REPORT ELECTRONICALLY SIGNED IN OTHER VENDOR SYSTEM ?? Resulting Agency Comment E Procedure Note Eder Jacobsen MD - 04/23/2020 Patient Name: SARA MILLER Dr: Hilda Villasenor DO, D.O.B: 1985 Exam Date: 04/23/20 1024 Age: 35 Sex: Male MR#: [id number] Loc: RADIOLOGY REPORT Order #[id number] CT Scan CT L-Spine WO IV Contrast Signed EXAM DESCRIPTION: CT L-Spine WO IV Contrast REASON FOR STUDY: Left-sided back pain with lifting heavy object since 04/22/2020. TECHNIQUE: Axial images acquired through the lumbar spine withoutintravenous contrast. Reconstructed coronal and sagittal MPR images reviewed. Allimages stored on PACS. Automated exposure control was used as a dose optimization technique forthis examination. COMPARISON: Plain films same day FINDINGS: SEGMENTATION: No transitional anatomy. The lowest well-developed discspace is labeled L5-S1. ALIGNMENT: Normal. VERTEBRAE: No fracture. Vertebral heights well-maintained. DISC HEIGHT: Well-maintained. HARDWARE: None in the spine. INDIVIDUAL DISC LEVELS: L3-4 and L4-5 levels demonstrate mild central disc bulge with minimal effacement of anterior thecal sac and minimal narrowing of bilateralneural foramina. VISUALIZED RIBS: No fractures. SOFT TISSUES: No significant or acute finding in adjacent soft tissues. OTHER: No other significant finding. IMPRESSION: Minimal disc bulge L 3 4 and L4-5 without spinal or neural foraminal severe stenosis. THIS IS AN ELECTRONICALLY VERIFIED FINAL REPORT 04/23/2020 11:54 AM - Electronically signed by Eder Jacobsen M.D. RB T: Report ID: [id number] Reading Location: [id number] REPORT ELECTRONICALLY SIGNED IN OTHER VENDOR SYSTEM us Hilda Villasenor DO IMG CT PROCEDURES Final Result * XR Spine Lumbar 2 or 3 Views (04/23/2020 12:00 AM CHEMICAL APPLICATOR) Anatomical Region Laterality Modality Spine N/A Radiographic Xochitl ging 04/23/2020 8:51 AM CHEMICAL APPLICATOR Narrative 04/23/2020 8:52 AM CHEMICAL APPLICATOR Patient Name: SARA MILLER ?Ordering Dr: Nita Higginbotham ANP ?? D.O.B: 1985 ? Exam Date: 04/23/20 ?? 0000 ?? Age: 35 ?Sex: Male ? MR#: [id number] ?? Loc: ? RADIOLOGY REPORT ?? Order #[id number] ?? Radiology ? Lumbar Spine 2 or 3 View ? Signed ?? EXAM DESCRIPTION: ?? Lumbar Spine 2 or 3 View ? REASON FOR STUDY: ?? 2WKS AGO LIFTED HEAVY OBJECT AT WORK STARTED HAVING PAIN ?? LOW BACK TO LEFT SIDE, YESTERDAY LIFTED AT WORK BACK POPPED, NOW HAS LOW ?? BACK PAIN TRAVELING DOWN TO THE LEFT LEG WITH SPASMS ? TECHNIQUE: ?? AP, LATERAL AND CONED-DOWN LUMBOSACRAL radiographic views ?? acquired of the lumbar spine. ? COMPARISON: ?? NONE. ? FINDINGS: ? SEGMENTATION: ??Normal. ??No transitional anatomy. ? ALIGNMENT: ??Normal. ? VERTEBRAE: ??Well-maintained height. ??No fracture or worrisome bone lesion. ?? Facet joints unremarkable. ? DISCS: ??Well-maintained disc heights. ? OTHER: ??No other significant finding. ? IMPRESSION: ?? Intact lumbar spine. ? THIS IS AN ELECTRONICALLY VERIFIED FINAL REPORT ?? 04/23/2020 8:52 AM - Electronically signed by Dony Adair ?? Dony Adair ? ML ?? D: ??04/23/2020 8:52 AM ?? T: ? Report ID: [id number] ?? Reading Location: ??[id number] ? REPORT ELECTRONICALLY SIGNED IN OTHER VENDOR SYSTEM ?? Resulting Agency Comment P Procedure Note Dony Adair MD - 04/23/2020 Patient Name: SARA MILLER Susan Dr: Nita Higginbotham D.O.B: 1985 Exam Date: 04/23/20 0000 Age: 35 Sex: Male MR#: [id number] Loc: RADIOLOGY REPORT Order #[id number] Radiology Lumbar Spine 2 or 3 View Signed EXAM DESCRIPTION: Lumbar Spine 2 or 3 View REASON FOR STUDY: 2WKS AGO LIFTED HEAVY OBJECT AT WORK STARTED HAVINGPAIN LOW BACK TO LEFT SIDE, YESTERDAY LIFTED AT WORK BACK POPPED, NOW HASLOW BACK PAIN TRAVELING DOWN TO THE LEFT LEG WITH SPASMS TECHNIQUE: AP, LATERAL AND CONED-DOWN LUMBOSACRAL radiographic views acquired of the lumbar spine. COMPARISON: NONE. FINDINGS: SEGMENTATION: Normal. No transitional anatomy. ALIGNMENT: Normal. VERTEBRAE: Well-maintained height. No fracture or worrisome bonelesion. Facet joints unremarkable. DISCS: Well-maintained disc heights. OTHER: No other significant finding. IMPRESSION: Intact lumbar spine. THIS IS AN ELECTRONICALLY VERIFIED FINAL REPORT 04/23/2020 8:52 AM - Electronically signed by Dony GASPAR T: Report ID: [id number] Reading Location: [place] [address] REPORT ELECTRONICALLY SIGNED IN OTHER VENDOR SYSTEM us Nita Higginbotham [employer] 8 TEACHER IMG XR PROCEDURES Final Result documented in this encounter Visit Diagnoses Not on filedocumented in this encounter Care Teams Driver Service Technician Relationship Specialty Start Date End Date Clinic, Pcp PCP - General 07/14/16 03/25/22 documented as of this encounter
--- OUTSIDE RECORDS SUMMARY | 2024-03-26 07:03 | XMS_ITS | Encounter Summary ---
Author Organization [facility] Health Address [address] [facility] [place] [address] Care Team Providers Care Creative Intern Name Role Phone Hussain Rushing BLANCHING MACHINE OPERATOR-MINK SLICER Unavailable [phone] Hussain Rushing BLANCHING MACHINE OPERATOR-MINK SLICER Primary Care Provider Reason for Visit * Reason Comments Post-Op WOUND CHECK POST FUS ION Encounter Details Date Type Department Care Team (Late st Contact Info) Description 11/30/2021 9:00 AM CDT Office Visit [facility] [address] [place] [address], [address] [place] [address] Marbin Mejia MD [address] [id number] S/P lumbar fusion (Primary Dx) Social History [...] CDT Follow up as needed Please call Saivta at [phone] with any questions Alternatively you can send us a My Chart message If needed, our fax number is [phone] For any scheduling needs please call [phone] documented in this encounter Progress Notes * [...] every 12 hours ergocalciferol (Drisdol) 1.25 MG (13347 UT) capsule Vitamin D2 1,250 mcg (50,000 [...] (OCEAN; BABY AYR) 0.65 % nasal spray Shannon 2 (two) sprays into each nostril every [...] care of your patient. Marbin Mejia MD [facility] [place] .[id number] .[id number] .[id number] Doc ID: [id number] Voice Job ID: [id number] cc: HUSSAIN RUSHING NP documented in this encounter Plan of Treatment Not on file documented as of this encounter Visit Diagnoses Diagnosis S/P lumbar fusion- Primary Arthrodesis status documented in this encounter Care Teams Creative Intern Relationship Specialty Start Date End Date Hussain Rushing APRN-CNP PCP - General 10/19/21 Hussain Rushing APRN-CNP 09/28/21 documented as of this encounter
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
--- OUTSIDE RECORDS SUMMARY | 2024-03-26 07:03 | XMS_ITS | Encounter Summary ---
Author Organization [facility] Health Address [address] [facility] [place] [address] Care Team Providers Care Adult Care Provider Name Role Phone Hussain Rushing BRUSH LOADER AND HANDLE ATTACHER-LIGHTING EQUIPMENT OPERATOR Unavailable [phone] Hussain Rushing BRUSH LOADER AND HANDLE ATTACHER-LIGHTING EQUIPMENT OPERATOR Primary Care Provider Reason for Visit * Reason Comments Establish Care pnemothorax Encounter Details Date Type Department Care Team (Late st Contact Info) Description 11/03/2021 2:00 PM CDT Office Visit [facility] Trauma Surgery [address] [facility] [place] [id number] Paraplegia (HCC) (Primary Dx); Urinary retention Social [...] year old male Patient's Primary Care Physician: SUMMRE Hatch Subjective: Solo Miller is a 36 [...] Trauma Surgery Medical Student 11/03/2021 3:02 PM OYEE BENEFITS ADMINISTRATOR Associated attestation - Timoteo Nolan MD - 02/12/2022 12:54 PM EMPLOYEE BENEFITS ADMINISTRATOR I have verified the documentation of the [...] urine. Ua done and given to . OYEE BENEFITS ADMINISTRATOR documented in this encounter Plan of Treatment [...] POCT N Ketones UA POCT N Specific [place] UA 1.030 Blood Urine POCT 3+ pH UA 6.0 Protein UA 2+ Urobilinogen UA 0.2 Nitrite UA + WBC UA 3+ Urine URINE / Unknown 11/03/2021 2 :15 PM CDT Timoteo Nolan MD LAB - POINT OF CARE ORDERABLES documented in this encounter Visit Diagnoses Diagnosis Paraplegia (HCC)- Primary Paraplegia Urinary retention Retention of urine, unspecified documented in this encounter Care Teams Adult Care Provider Relationship Specialty Start Date End Date Hussain Rushing, LAURA-LIGHTING EQUIPMENT OPERATOR [facility] - General 10/19/21 Hussain Rushing APRN-TRAMAINE 09/28/21 documented as of this encounter
--- OUTSIDE RECORDS SUMMARY | 2024-03-26 07:03 | XMS_ITS | Encounter Summary ---
Author Organization [facility] Address [address] [place] [address] Care Team Providers Care Retail Parts Professional Name Role Phone Hussain Rushing APRN-TRAMAINE Unavailable [phone] Hussain Rushing CARD STRIPPER-VETERINARIAN POULTRY Primary Care Provider Reason for Visit * [...] CDT - 12/20/2021 6:[address] [facility] EMERGENCY DEPARTMENT [address] [place] [id number] Non-pressure chronic ulcer of other part of [...] 12 hours 10/13/2021 ergocalciferol (Drisdol) 1.25 MG (85604 UT) capsule Vitamin D2 1,250 mcg (50,000 [...] (OCEAN; BABY AYR) 0.65 % nasal spray [place] 2 (two) sprays into each nostril every [...] stage documented in this encounter Care Teams Retail Parts Professional Relationship Specialty Start Date End Date Hussain Rushing APRN-CNP PCP - General 10/19/21 Hussain Rushing APRN-CNP 09/28/21 documented as of this encounter
--- OUTSIDE RECORDS SUMMARY | 2024-03-26 07:03 | XMS_ITS | Patient Health Summary ---
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 Amplitude) ACTF 5 2 - 19 mm 09/27/2021 10:29 PM CDT [facility] TEGPLM (Max Amplitude) ADP 47 45 - 69 mm 09/27/2021 10:29 PM T [facility] TEGPLM (Max Amplitude) AA 39(L) 51 - 71 mm 09/27/2021 10:29 PM T [facility] TEGPLM %Inhibition ADP 26(H) 0 - 17 % 09/27/2021 10:29 PM T [facility] TEGPLM %Inhibition AA 40(H) 0 - 11 % 09/27/2021 10:29 PM T [facility] TEGPLM %Aggregation ADP 74(L) 83 - 100 % 09/27/2021 10:29 PM [facility] TEGPLM % Aggregation AA 60(L) 89 - 100 % 09/27/2021 10:29 PM [facility] Blood BLOOD SPECIMEN / Unknown Venipuncture / Unknown 09/27/2021 9:05 PM CDT 09/27/2021 9:23 PM CDT Dar Kilpatrick MD LAB - HEMATOLOGY O RDERABLES [facility] [address] [place] [address], [facility] [phone] * (ABNORMAL) DIFFERENTIAL MANUAL (09/27/2021 9:05 PM CDT) WBC (corrected for NRBC) 9.8 10? 3 /uL 09/27/2021 10:03 PM [facility] Total Cell Count 100 09/28/19 10:03 PM [facility] Neutrophils Absolute Manual 4.51 1.60 - 7.00 10? 3 /uL 09/27/2021 10:03 PM [facility] Comment:(BANDS+SEGS) x WBC = NEUT # (ANC) Lymphocyte Absolute Manual 3.92(H) 1.10 - 3.90 10? 3 /uL 09/27/2021 10:03 PM [facility] Monocytes Absolute Manual 0.49 0.26 - 1.07 10? 3 /uL 09/27/2021 10:03 PM [facility] Eosinophils Absolute Manual 0.39 0.00 - 0.47 10? 3 /uL 09/27/2021 10:03 PM [facility] Neutrophil % Manual 46 35 - 70 % 09/27/2021 10:03 PM [facility] Lymphocyte % Manual 40 20 - 43 % 09/27/2021 10:03 PM [facility] Monocytes % Manual 5 5 - 13 % 09/27/2021 10:03 PM [facility] Eosinophils % Manual 4 0 - 6 % 09/27/2021 10:03 PM [facility] Atypical Lymphocyte % Manual 5(H) 0 % 09/27/2021 10:03 PM [facility] Platelet Estimate Adequate Adequate 09/27/2021 10:03 PM [facility] Poikilocytes Few(A) None 09/27/2021 10:03 PM [facility] Polychromasia Occasional( A) None 09/27/2021 10:03 PM [facility] Target Cells Occasional( A) None 09/27/2021 10:03 PM [facility] Schistocytes Occasional( A) None 09/27/2021 10:03 PM [facility] [place] Cells Few(A) None 09/27/2021 10:03 PM [facility] Blood BLOOD SPECIMEN / Unknown Venipuncture / Unknown 09/27/2021 9:05 PM CDT 09/27/2021 9:24 PM T Dar Kilpatrick MD LAB - HEMATOLOGY O RDERABLES [facility] [address] [place] [address], [facility] [phone] * ALCOHOL ETHYL BLOOD (09/27/2021 9:05 PM CDT) Ethanol (mg/dL) <10 <10 mg/dL 9:51 PM [facility] Ethanol Calculated (g/dL) <0.010 <=0.010 g/dL 09/27/2021 9:51 PM [facility] Blood BLOOD SPECIMEN / Unknown Venipuncture / Unknown 09/27/2021 9:05 PM CDT 09/27/2021 9:24 PM CDT Narrative [facility] - 09/27/2021 9:51 PM CDT Ethanol Interp <10: None Detected. Depression of NITRATE OPERATOR: >100 mg/dl Potentially Critical: >250 mg/dl Potentially [...] Kilpatrick MD LAB - CHEMISTRY OR DERABLES [facility] [address] [place] [address], [facility] [phone] * ED LACERATION REPAIR (07/14/2018 5:43 AM [...] foreign body, tendon damage and vascular damage [place] protocol: ??Procedure explained and questions answered to [...] on 07/06/2018 at 8:39 PM Neda Serra OIL LEASE BROKER-FUNDS TRANSFER CLERK DIAGNOSTIC IMAGING ORDERABLES * XR HAND RIGHT [...] on 07/06/2018 at 8:46 PM Neda Serra APRN-FUNDS TRANSFER CLERK DIAGNOSTIC IMAGING ORDERABLES Care Teams Crocheter Hand Relationship Specialty Start Date End Date Hussain Rushing APRN-TRAMAINE PCP - General 10/19/21 Hussain Rushing APRN-TRAMAINE 09/28/21
--- OUTSIDE RECORDS SUMMARY | 2024-03-26 07:03 | XMS_ITS | Referral Summary ---
Author Organization [facility] [employer] Address [address] [place] [address] Care Team Providers Care Wood Carver Name Role Phone Hussain Rushing APRN-TRAMAINE Unavailable [phone] Hussain Rushing SOCIOLOGY TEACHER-CHEMIST STEROIDS Primary Care Provider Source Comments [facility] [employer],non-owned Affiliates and Associated Physician Practices is amultiple site organization consisting of ambulatory clinics and hospital sitesin [place], [place], [place] and [place]. This disclosure is being madepursuant to the Care Everywhere program and may not contain all information available regarding this patient. Last updated 17.[facility] Allergies No known active allergies Medications * [...] (OCEAN; BABY AYR) 0.65 % nasal spray [place] 2 (two) sprays into each nostril every [...] mg tablet Active ergocalciferol (Drisdol) 1.25 MG (31978 UT) capsule Vitamin D2 1,250 mcg (50,000 [...] on file Medical Devices Implanted Type Area Home School Coordinator Device Identifier Shelf Expiration Date Model / Serial / Lot Graft Bone Grftn Dbm Plif 10x2.5cm - [id number] Implanted:Qt y: 1 on 10/06/2021 by Marbin Mejia MD at [facility] N/A: Spine Thoracic [employer] 08/20/2024 [id number] / [id number] / Screw 6.5mm 50mm Ma Spne Solera Cd Hzn Implanted:Qt y: 1 on 10/06/2021 by Marbin Mejia MD at [facility] N/A: Spine Thoracic [employer] [id number] / / Screw 6.5mm 45mm Ma Spne Solera Cd Hzn Implanted:Qt y: 5 on 10/06/2021 by Marbin Mejia MD at [facility] N/A: Spine Thoracic [employer] [id number] / / Screw 7.5mm 50mm Ma Spne Solera Cd Hzn Implanted:Qt y: 1 on 10/06/2021 by Marbin Mejia MD at [facility] N/A: Spine Thoracic [employer] [id number] / / Screw 7.5mm 45mm Ma Spne Solera Cd Hzn Implanted:Qt y: 2 on 10/06/2021 by Marbin Mejia MD at [facility] N/A: Spine Thoracic [employer] [id number] / / Screw Set Ti Spnl Brk Off Cd Hzn Nonster Implanted:Qt y: 9 on 10/06/2021 by Marbin Mejia MD at [facility] N/A: Spine Thoracic [employer] [id number] / / Arnav Spnl 150mm 5.5mm Cd Hzn Str Perc Implanted:Qt y: 1 on 10/06/2021 by Marbin Mejia MD at [facility] N/A: Spine Thoracic [employer] [id number] / / Graft Bone Grftn Dbm Plif 10x2.5cm - [id number] Implanted:Qt y: 1 on 10/06/2021 by Marbin Mejia MD at [facility] N/A: Spine Thoracic [employer] 08/20/2024 [id number] / [id number] / Arnav Spnl 160mm 5.5mm Cd Hzn Str Perc Implanted:Qt y: 1 on 10/06/2021 by Marbin Mejia MD at [facility] N/A: Spine Thoracic [employer] [id number] / / Bonescrew, Axs, St 1.7x5mm 5p Implanted:Qt y: 7 on 10/07/2021 at [facility] Mandible Ladonna Craniomaxillofacial [id number] / / Plate 24 Hl Mdfc .6mm Std Str Leibinger Implanted:Qt y: 1 on 10/07/2021 at [facility] [employer]ible [place] Craniomaxillofacial [id number] / / Explanted Type Area Home School Coordinator Device Identifier Shelf Expiration Date Model / Serial / Lot Screw 2mm 8mm Slf Drl Xpn Lgt Wire Mndb Explanted:Qty: 6 on 10/07/2021 at [facility] [employer] [place] Craniomaxillofacial [id number] / / Advance Directives * Full Code (Latest Code Status on File) Date Activated Date Inactivated Comments 09/27/2021 9:12 PM 10/13/2021 8:11 PM Care Teams Wood Carver Relationship Specialty Start Date End Date Hussain Rushing APRN-CHEMIST STEROIDS PCP - General 10/19/21 Hussain Rushing APRN-CHEMIST STEROIDS 09/28/21
--- OUTSIDE RECORDS SUMMARY | 2024-03-26 07:03 | XMS_ITS | Clinical Summary ---
Author Organization [facility] [employer] Address [address] [place] [address] Care Team Providers Care Certified Surgical Tech/First Assistant Name Role Phone Hussain Rushing APRN-TRAMAINE Unavailable [phone] Hussain Rushing SCHOOL COMMUNITY RELATIONS COORDINATOR-AIRPLANE PILOT SUPERVISOR Primary Care Provider Source Comments [facility] [employer],non-owned Affiliates and Associated Physician Practices is amultiple site organization consisting of ambulatory clinics and hospital sitesin [place], [place], [place] and [place]. This disclosure is being madepursuant to the Care Everywhere program and may not contain all information available regarding this patient. Last updated 17.[facility] [employer] Allergies No known active allergies Medications * [...] (OCEAN; BABY AYR) 0.65 % nasal spray [place] 2 (two) sprays into each nostril every [...] mg tablet Active ergocalciferol (Drisdol) 1.25 MG (97926 UT) capsule Vitamin D2 1,250 mcg (50,000 [...] this topic Medical Devices Implanted Type Area Music Typographer Device Identifier Shelf Expiration Date Model / Serial / Lot Graft Bone Grftn Dbm Plif 10x2.5cm - [id number] Implanted:Qt y: 1 on 10/06/2021 by Marbin Mejia MD at [facility] N/A: Spine Thoracic [employer] 08/20/2024 [id number] / [id number] / Screw 6.5mm 50mm Ma Spne Solera Cd Hzn Implanted:Qt y: 1 on 10/06/2021 by Marbin Mejia MD at [facility] N/A: Spine Thoracic [employer] [id number] / / Screw 6.5mm 45mm Ma Spne Solera Cd Hzn Implanted:Qt y: 5 on 10/06/2021 by Marbin Mejia MD at [facility] N/A: Spine Thoracic [employer] [id number] / / Screw 7.5mm 50mm Ma Spne Solera Cd Hzn Implanted:Qt y: 1 on 10/06/2021 by Marbin Mejia MD at [facility] N/A: Spine Thoracic [employer] [id number] / / Screw 7.5mm 45mm Ma Spne Solera Cd Hzn Implanted:Qt y: 2 on 10/06/2021 by Marbin Mejia MD at [facility] N/A: Spine Thoracic [employer] [id number] / / Screw Set Ti Spnl Brk Off Cd Hzn Nonster Implanted:Qt y: 9 on 10/06/2021 by Marbin Mejia MD at [facility] N/A: Spine Thoracic [employer] [id number] / / Arnav Spnl 150mm 5.5mm Cd Hzn Str Perc Implanted:Qt y: 1 on 10/06/2021 by Marbin Mejia MD at [facility] N/A: Spine Thoracic [employer] [id number] / / Graft Bone Grftn Dbm Plif 10x2.5cm - [id number] Implanted:Qt y: 1 on 10/06/2021 by Marbin Mejia MD at [facility] N/A: Spine Thoracic [employer] 08/20/2024 [id number] / [id number] / Arnav Spnl 160mm 5.5mm Cd Hzn Str Perc Implanted:Qt y: 1 on 10/06/2021 by Marbin Mejia MD at [facility] N/A: Spine Thoracic [employer] [id number] / / Bonescrew, Axs, St 1.7x5mm 5p Implanted:Qt y: 7 on 10/07/2021 at [facility] Mandible [place] Craniomaxillofacial [id number] / / Plate 24 Hl Mdfc .6mm Std Str Leibinger Implanted:Qt y: 1 on 10/07/2021 at [facility] Mandible Ladonna Craniomaxillofacial [id number] / / Explanted Type Area Music Typographer Device Identifier Shelf Expiration Date Model / Serial / Lot Screw 2mm 8mm Slf Drl Xpn Lgt Wire Mndb Explanted:Qty: 6 on 10/07/2021 at [facility] Mandible Ladonna Craniomaxillofacial [id number] / / Advance Directives * Full Code (Latest Code Status on File) Date Activated Date Inactivated Comments 09/27/2021 9:12 PM 10/13/2021 8:11 PM Care Teams Certified Surgical Tech/First Assistant Relationship Specialty Start Date End Date Hussain Rushing APRN-TRAMAINE PCP - General 10/19/21 Hussain Rushing APRN-TRAMAINE 09/28/21
--- OUTSIDE RECORDS SUMMARY | 2024-03-26 07:04 | XMS_ITS | Encounter Summary ---
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 1.14(L) 1.19 - 1.34 mmol/L 10/05/2021 11:48 PM CDT [facility] Blood BLOOD SPECIMEN / Unknown Lab Venipuncture / Unknown 10/05/2021 11:17 PM CDT 10/05/2021 11:42 PM CDT Dar Kilpatrick MD LAB - CHEMISTRY OR DERABLES Performing Organization Address [facility]/ZIP Co de Phone Number [address] [address], [facility] [phone] * (ABNORMAL) CBC W/O DIFFERENTIAL (10/05/2021 11:17 PM CDT) [facility] WBC 12.1(H) 3.5 - 10.5 10? 3 /uL 10/05/2021 11:51 PM CDT [facility] RBC 2.89(L) 4.30 - 5.70 10? 6 /uL 10/05/2021 11:51 PM CDT [facility] Hemoglobin 8.6(L) 12.0 - 17.6 g/dL 10/05/2021 11:51 PM [facility] Hematocrit 25.6(L) 35.2 - 51.7 % 10/05/2021 11:51 PM [facility] MCV 88.6 80.7 - 98.3 fL 10/05/2021 11:51 PM [facility] MCH 29.8 26.7 - 34.0 pg 10/05/2021 11:51 PM [facility] MCHC 33.6 30.8 - 35.9 g/dL 10/05/2021 11:51 PM [facility] Platelet Count 263 150 - 400 10? 3 /uL 10/05/2021 11:51 PM [facility] RDW-SD 51.3(H) 36.0 - 50.0 fL 10/05/2021 11:51 PM [facility] RDW-CV 15.7(H) 11.2 - 14.8 % 10/05/2021 11:51 PM [facility] MPV 10.8 9.4 - 12.9 fL 10/05/2021 11:51 PM [facility] nRBC Absolute 0.00 0 10? 3 /uL 10/05/2021 11:51 PM [facility] nRBC Auto 0.0 0 /100 WBC 10/05/2021 11:51 PM [facility] Blood BLOOD SPECIMEN / Unknown Lab Venipuncture / Unknown 10/05/2021 11:17 PM CDT 10/05/2021 11:45 PM CDT Dar Kilpatrick MD LAB - HEMATOLOGY O RDERABLES [address] [address], [facility] [phone] * PHOSPHORUS BLOOD (10/05/2021 11:17 PM CDT) Phosphorus 4.8 2.8 - 5.1 mg/dL 10/06/2021 12:11 AM [facility] Blood BLOOD SPECIMEN / Unknown Lab Venipuncture / Unknown 10/05/2021 11:17 PM CDT 10/05/2021 11:45 PM CDT Dar Kilpatrick MD LAB - CHEMISTRY OR DERABLES [address] [address], [facility] [phone] * MAGNESIUM BLOOD (10/05/2021 11:17 PM CDT) Pathologist [facility] Magnesium 2.0 1.6 - 2.6 mg/dL 10/06/2021 12:11 AM T [facility] Blood BLOOD SPECIMEN / Unknown Lab Venipuncture / Unknown 10/05/2021 11:17 PM CDT 10/05/2021 11:45 PM CDT Dar Kilpatrick MD LAB - CHEMISTRY OR DERABLES Performing Organization Address [facility]/ZIP Co de Phone Number [address] [address], [facility] [phone] * (ABNORMAL) BASIC METABOLIC PANEL (CALCIUM TOTAL) (10/05/2021 11:17 PM CDT) Pathologist [facility] BUN 25 7 - 26 mg/dL 10/06/2021 12:11 AM [facility] Creatinine 1.28(H) 0.71 - 1.16 mg/dL 10/06/2021 12:11 AM [facility] Sodium 139 136 - 145 mmol/L 10/06/2021 12:11 AM [facility] Potassium 4.4 3.5 - 4.5 mmol/L 10/06/2021 12:11 AM [facility] Chloride 100 98 - 107 mmol/L 10/06/2021 12:11 AM [facility] CO2 24 22 - 29 mmol/L 10/06/2021 12:11 AM [facility] Glucose 132(H) 70 - 115 mg/dL 10/06/2021 12:11 AM [facility] Calcium 8.5 8.4 - 10.2 mg/dL 10/06/2021 12:11 AM CDT [facility] Anion Gap 19(H) 8 - 18 10/06/2021 12:11 AM CDT [facility] BUN/Creatinine Ratio 20 7 - 23 10/06/2021 12:11 AM CDT [facility] Osmolality Calculated 294 270 - 300 mOsm/kg 10/06/2021 12:11 AM CDT [facility] eGFR by CKD-EPI 73(L) >=90 mL/min/1.7 3 m2 10/06/2021 12:11 AM CDT [facility] Blood BLOOD SPECIMEN / Unknown Lab Venipuncture / Unknown 10/05/2021 11:17 PM CDT 10/05/2021 11:45 PM CDT Dar Kilpatrick MD LAB - CHEMISTRY OR DERABLES [facility] [address] [place] [address], [facility] [phone] * XR CHEST 1VW PORTABLE (10/05/2021 11:53 [...] quadrant. Dictated by Jamel Washington DO (radiology director). I, Dr. MICAELA MCCULLOUGH have personally reviewed [...] quadrant. Dictated by Jamel Washington DO (radiology director). I, Dr. MICAELA MCCULLOUGH have personally reviewed and interpreted this examination/study. This report was electronically signed by MICAELA MCCULLOUGH on 23:57 PM . Diamond Dunlap INCLUSION SPECIAL EDUCATION TEACHER-RAIL CAR PAINTER/SANDBLASTER DIAGNOSTIC IMAGI NG ORDERABLES * EKG 12-LEAD (10/05/2021 10:48 AM CDT) Pathologist [facility] Ventricular Rate 67 BPM [facility] MUSE Atrial Rate 67 BPM [facility] MUSE P-R Interval 146 ms [facility] M[facility] QRS Duration ms 86 ms [facility] M[facility] Q-T Interval ms 390 ms [facility] QTC Calculation (Bezet) 412 ms [facility] MUSE Calculated P [place] 63 degrees [facility] MUSE Calculated R [place] 42 degrees [facility] MUSE Calculated T [place] 2 degrees [facility] Interpretation EKG NORMAL SINUS RHYTHM NORMAL ECG NO PREVIOUS ECGS AVAILABLE Confirmed by MD Olamide, Iliana ([id number]) on 10/05/2021 2:28:56 PM [facility] M[facility] 10/05/2021 10:4 8 AM CDT 10/05/2021 2:28 PM CDT Dar Kilpatrick MD ECG ORDERABLES [facility] * TYPE + SCREEN PANEL (10/05/2021 10:21 AM CDT) Antibody Screen NEG 11:22 AM CDT [facility] ABO Rh O POS 10/05/2021 11:22 AM CDT [facility] Blood Bank BLOOD SPECIMEN / Unknown Lab Venipuncture / Unknown 10/05/2021 10:21 AM CDT 10/05/2021 10:27 AM CDT Dar Kilpatrick MD LAB - BLOOD BANK O RDERABLES Performing Organization Address [facility] Co de Phone Number [facility] [address] [place] [address], [facility] [phone] * PT-INR [facility] (10/05/2021 10:21 AM CDT) PT 13.4 12.1 - 14.8 Seconds 10/05/2021 11:12 AM CDT [facility] INR 1.0 See Comment 10/05/2021 11:12 AM T [facility] Comment:The suggested therap eutic range for standard coumadin (warfarin) therapy is an INR of 2.0-3.0. For high-risk patients (Mechanical Mitral Valve Prosthesis, etc.), the suggested prophylactic therapeutic range is an INR of 2.5-3.5. Blood BLOOD SPECIMEN / Unknown Lab Venipuncture / Unknown 10/05/2021 10:21 AM CDT 10/05/2021 10:43 AM CDT Dar Kilpatrick MD LAB - COAGULATION ORDERABLES Performing Organization Address [facility]/ZIP Co de Phone Number [facility] [address] [place] [address], [facility] [phone] * (ABNORMAL) CALCIUM IONIZED WHOLE BLOOD (10/05/2021 4:13 AM CDT) Calcium Ionized 1.12 mmol/L 10/05/2021 4:35 AM CDT [facility] pH 7.40 7.35 - 7.45 pH 10/05/2021 4:35 AM CDT [facility] Ionized Calcium pH Adjusted 1.12(L) 1.19 - 1.34 mmol/L 10/05/2021 4:35 AM [facility] Blood BLOOD SPECIMEN / Unknown Lab Venipuncture / Unknown 10/05/2021 4:13 AM CDT 10/05/2021 4:30 AM CDT Dar Kilpatrick MD LAB - CHEMISTRY OR DERABLES Performing Organization Address [facility]/State/ZIP Co de Phone Number [facility] [address] [place] [address], [facility] [phone] * (ABNORMAL) CBC W/O DIFFERENTIAL (10/05/2021 4:13 AM CDT) WBC 10.9(H) 3.5 - 10.5 10? 3 /uL 10/05/2021 4:49 AM [facility] RBC 2.90(L) 4.30 - 5.70 10? 6 /uL 10/05/2021 4:49 AM [facility] Hemoglobin 8.5(L) 12.0 - 17.6 g/dL 10/05/2021 4:49 AM [facility] Hematocrit 25.5(L) 35.2 - 51.7 % 10/05/2021 4:49 AM [facility] MCV 87.9 80.7 - 98.3 fL 10/05/2021 4:49 AM [facility] MCH 29.3 26.7 - 34.0 pg 10/05/2021 4:49 AM [facility] MCHC 33.3 30.8 - 35.9 g/dL 10/05/2021 4:49 AM [facility] Platelet Count 246 150 - 400 10? 3 /uL 10/05/2021 4:49 AM [facility] RDW-SD 50.6(H) 36.0 - 50.0 fL 10/05/2021 4:49 AM [facility] RDW-CV 15.8(H) 11.2 - 14.8 % 10/05/2021 4:49 AM [facility] MPV 10.7 9.4 - 12.9 fL 10/05/2021 4:49 AM [facility] nRBC Absolute 0.00 0 10? 3 /uL 10/05/2021 4:49 AM CDT [facility] nRBC Auto 0.0 0 /100 WBC 10/05/2021 4:49 AM CDT [facility] Blood BLOOD SPECIMEN / Unknown Lab Venipuncture / Unknown 10/05/2021 4:13 AM CDT 10/05/2021 4:37 AM CDT Dar Kilpatrick MD LAB - HEMATOLOGY O RDERABLES [address] [address], [place] [phone] * PHOSPHORUS BLOOD (10/05/2021 4:13 AM CDT) Phosphorus 3.8 2.8 - 5.1 mg/dL 10/05/2021 5:15 AM CDT [facility] Blood BLOOD SPECIMEN / Unknown Lab Venipuncture / Unknown 10/05/2021 4:13 AM CDT 10/05/2021 4:37 AM CDT Dar Kilpatrick MD LAB - CHEMISTRY OR DERABLES Performing Organization Address [facility] Co de Phone Number [address] [address], [place] [phone] * MAGNESIUM BLOOD (10/05/2021 4:13 AM CDT) Magnesium 2.2 1.6 - 2.6 mg/dL 10/05/2021 5:15 AM CDT [facility] Blood BLOOD SPECIMEN / Unknown Lab Venipuncture / Unknown 10/05/2021 4:13 AM CDT 10/05/2021 4:37 AM CDT Dar Kilpatrick MD LAB - CHEMISTRY OR DERABLES Performing Organization Address [facility] Co de Phone Number [address] [address], [place] [phone] * (ABNORMAL) BASIC METABOLIC PANEL (CALCIUM TOTAL) (10/05/2021 4:13 AM CDT) BUN 22 7 - 26 mg/dL 10/05/2021 5:15 AM [facility] Creatinine 1.40(H) 0.71 - 1.16 mg/dL 10/05/2021 5:15 AM [facility] Sodium 137 136 - 145 mmol/L 10/05/2021 5:15 AM [facility] Potassium 4.2 3.5 - 4.5 mmol/L 10/05/2021 5:15 AM [facility] Chloride 101 98 - 107 mmol/L 10/05/2021 5:15 AM [facility] CO2 26 22 - 29 mmol/L 10/05/2021 5:15 AM [facility] Glucose 113 70 - 115 mg/dL 10/05/2021 5:15 AM [facility] Calcium 8.9 8.4 - 10.2 mg/dL 10/05/2021 5:15 AM [facility] Anion Gap 14 8 - 18 10/05/2021 5:15 AM [facility] BUN/Creatinine Ratio 16 7 - 23 10/05/2021 5:15 AM [facility] Osmolality Calculated 288 270 - 300 mOsm/kg 10/05/2021 5:15 AM [facility] eGFR by CKD-EPI 66(L) >=90 mL/min/1.7 3 m2 10/05/2021 5:15 AM [facility] Blood BLOOD SPECIMEN / Unknown Lab Venipuncture / Unknown 10/05/2021 4:13 AM CDT 10/05/2021 4:37 AM CDT Dar Kilpatrick MD LAB - CHEMISTRY OR DERABLES [facility] [address] [place] [id number], [facility] [phone] * XR CHEST 1VW PORTABLE (10/04/2021 4:32 [...] Report dictated by Padmaja Wilson MD (radiology director). Dr. MARK ANTHONY Connor MD, [place] have [...] Report dictated by Padmaja Wilson MD (radiology director). Dr. MARK ANTHONY Connor MD, [place] have personally reviewedand interpreted this examination/study. This report was electronically signed by MARK ANTHONY LINCOLN MD [place] on 10/05/2021 11:38 AM . Dar Kilptarick MD DIAGNOSTIC IMAGING ORDERABLES * (ABNORMAL) CALCIUM IONIZED WHOLE BLOOD (10/04/2021 12:12 AM CDT) Calcium Ionized 1.16 mmol/L 10/04/2021 12:19 AM [facility] pH 7.57(H) 7.35 - 7.45 pH 10/04/2021 12:19 AM [facility] Ionized Calcium pH Adjusted 1.24 1.19 - 1.34 mmol/L 10/04/2021 12:19 AM [facility] Blood BLOOD SPECIMEN / Unknown Venipuncture / Unknown 10/04/2021 12:12 AM CDT 10/04/2021 12:16 AM CDT Dar Kilpatrick MD LAB - CHEMISTRY OR DERABLES Performing Organization Address City/State/[facility] Co de Phone Number [facility] [address] [place] [address], [facility] [phone] * (ABNORMAL) CBC W/O DIFFERENTIAL (10/04/2021 12:12 AM CDT) Pathologist [facility] WBC 9.8 3.5 - 10.5 10? 3 /uL 10/04/2021 12:23 AM [facility] RBC 2.64(L) 4.30 - 5.70 10? 6 /uL 10/04/2021 12:23 AM [facility] Hemoglobin 7.7(L) 12.0 - 17.6 g/dL 10/04/2021 12:23 AM [facility] Hematocrit 23.0(L) 35.2 - 51.7 % 10/04/2021 12:23 AM [facility] MCV 87.1 80.7 - 98.3 fL 10/04/2021 12:23 AM [facility] MCH 29.2 26.7 - 34.0 pg 10/04/2021 12:23 AM [facility] MCHC 33.5 30.8 - 35.9 g/dL 10/04/2021 12:23 AM [facility] Platelet Count 183 150 - 400 10? 3 /uL 10/04/2021 12:23 AM [facility] RDW-SD 50.6(H) 36.0 - 50.0 fL 10/04/2021 12:23 AM CDT [facility] RDW-CV 15.9(H) 11.2 - 14.8 % 10/04/2021 12:23 AM T [facility] MPV 10.3 9.4 - 12.9 fL 10/04/2021 12:23 AM T [facility] nRBC Absolute 0.00 0 10? 3 /uL 10/04/2021 12:23 AM CDT [facility] nRBC Auto 0.0 0 /100 WBC 10/04/2021 12:23 AM T [facility] Blood BLOOD SPECIMEN / Unknown Venipuncture / Unknown 10/04/2021 12:12 AM CDT 10/04/2021 12:17 AM CDT Dar Kilpatrick MD LAB - HEMATOLOGY O RDERABLES Performing Organization Address City/[facility]/ZIP Co de Phone Number [address] [address], [facility] [phone] * PHOSPHORUS BLOOD (10/04/2021 12:12 AM CDT) Phosphorus 4.2 2.8 - 5.1 mg/dL 10/04/2021 12:42 AM CDT [facility] Blood BLOOD SPECIMEN / Unknown Venipuncture / Unknown 10/04/2021 12:12 AM CDT 10/04/2021 12:17 AM CDT Dar Kilpatrick MD LAB - CHEMISTRY OR DERABLES [address] [address], [facility] [phone] * MAGNESIUM BLOOD (10/04/2021 12:12 AM CDT) Magnesium 2.3 1.6 - 2.6 mg/dL 10/04/2021 12:42 AM CDT [facility] Blood BLOOD SPECIMEN / Unknown Venipuncture / Unknown 10/04/2021 12:12 AM CDT 10/04/2021 12:17 AM CDT Dar Kilpatrick MD LAB - CHEMISTRY OR DERABLES [facility] [address] [place] [address], [facility] [phone] * (ABNORMAL) BASIC METABOLIC PANEL (CALCIUM TOTAL) (10/04/2021 12:12 AM CDT) BUN 22 7 - 26 mg/dL 10/04/2021 12:42 AM [facility] Creatinine 1.36(H) 0.71 - 1.16 mg/dL 10/04/2021 12:42 AM [facility] Sodium 138 136 - 145 mmol/L 10/04/2021 12:42 AM [facility] Potassium 4.3 3.5 - 4.5 mmol/L 10/04/2021 12:42 AM [facility] Chloride 101 98 - 107 mmol/L 10/04/2021 12:42 AM [facility] CO2 27 22 - 29 mmol/L 10/04/2021 12:42 AM [facility] Glucose 106 70 - 115 mg/dL 10/04/2021 12:42 AM [facility] Calcium 8.8 8.4 - 10.2 mg/dL 10/04/2021 12:42 AM [facility] Anion Gap 14 8 - 18 10/04/2021 12:42 AM [facility] BUN/Creatinine Ratio 16 7 - 23 10/04/2021 12:42 AM [facility] Osmolality Calculated 290 270 - 300 mOsm/kg 10/04/2021 12:42 AM [facility] eGFR by CKD-EPI 68(L) >=90 mL/min/1.7 3 m2 10/04/2021 12:42 AM [facility] Blood BLOOD SPECIMEN / Unknown Venipuncture / Unknown 10/04/2021 12:12 AM CDT 10/04/2021 12:17 AM CDT Dar Kilpatrick MD LAB - CHEMISTRY OR DERABLES [facility] [address] [place] [address], [facility] [phone] * XR CHEST 1VW PORTABLE (10/03/2021 4:28 [...] Report dictated by Padmaja Wilson MD (radiology director). I, Dr. JHON LEBLANC MD have personally [...] Report dictated by Padmaja Wilson MD (radiology director). I, Dr. JHON LEBLANC MD have personally reviewed and interpreted this examination/study. This report was electronically signed by JHON LEBLANC MD on 10/04/2021 12:28 PM . Dar Kilpatrick MD DIAGNOSTIC IMAGING ORDERABLES * (ABNORMAL) CALCIUM IONIZED WHOLE BLOOD (10/03/2021 12:09 AM CDT) Pathologist [facility] Calcium Ionized 1.20 mmol/L 10/03/2021 12:24 AM CDT [facility] pH 7.51(H) 7.35 - 7.45 pH 10/03/2021 12:24 AM T [facility] Ionized Calcium pH Adjusted 1.26 1.19 - 1.34 mmol/L 10/03/2021 12:24 AM T [facility] Blood BLOOD SPECIMEN / Unknown Venipuncture / Unknown 10/03/2021 12:09 AM CDT 10/03/2021 12:20 AM CDT Dar Kilpatrick MD LAB - CHEMISTRY OR DERABLES Performing Organization Address City/State/[facility] Co de Phone Number [facility] [address] [place] [address], [facility] [phone] * (ABNORMAL) CBC W/O DIFFERENTIAL (10/03/2021 12:09 AM CDT) Pathologist [facility] WBC 9.0 3.5 - 10.5 10? 3 /uL 10/03/2021 12:36 AM CDT [facility] RBC 2.58(L) 4.30 - 5.70 10? 6 /uL 10/03/2021 12:36 AM T [facility] Hemoglobin 7.6(L) 12.0 - 17.6 g/dL 10/03/2021 12:36 AM T [facility] Hematocrit 22.5(L) 35.2 - 51.7 % 10/03/2021 12:36 AM [facility] MCV 87.2 80.7 - 98.3 fL 10/03/2021 12:36 AM [facility] MCH 29.5 26.7 - 34.0 pg 10/03/2021 12:36 AM [facility] MCHC 33.8 30.8 - 35.9 g/dL 10/03/2021 12:36 AM [facility] Platelet Count 154 150 - 400 10? 3 /uL 10/03/2021 12:36 AM [facility] RDW-SD 51.1(H) 36.0 - 50.0 fL 10/03/2021 12:36 AM [facility] RDW-CV 15.9(H) 11.2 - 14.8 % 10/03/2021 12:36 AM [facility] MPV 10.8 9.4 - 12.9 fL 10/03/2021 12:36 AM [facility] nRBC Absolute 0.00 0 10? 3 /uL 10/03/2021 12:36 AM [facility] nRBC Auto 0.0 0 /100 WBC 10/03/2021 12:36 AM [facility] Blood BLOOD SPECIMEN / Unknown Venipuncture / Unknown 10/03/2021 12:09 AM CDT 10/03/2021 12:23 AM CDT Dar Kilpatrick MD LAB - HEMATOLOGY O RDERABLES Performing Organization Address City/State/[facility] Co de Phone Number [facility] [address] [place] [phone] [phone] * PHOSPHORUS BLOOD (10/03/2021 12:09 AM CDT) Phosphorus 4.3 2.8 - 5.1 mg/dL 10/03/2021 12:51 AM [facility] Blood BLOOD SPECIMEN / Unknown Venipuncture / Unknown 10/03/2021 12:09 AM CDT 10/03/2021 12:24 AM CDT Dar Kilpatrick MD LAB - CHEMISTRY OR DERABLES [facility] [address] [place] [address], [place] [phone] * MAGNESIUM BLOOD (10/03/2021 12:09 AM CDT) Magnesium 2.1 1.6 - 2.6 mg/dL 10/03/2021 12:51 AM [facility] Blood BLOOD SPECIMEN / Unknown Venipuncture / Unknown 10/03/2021 12:09 AM CDT 10/03/2021 12:24 AM CDT Dar Kilpatrick MD LAB - CHEMISTRY OR DERABLES [facility] [address] [place] [address], [place] [phone] * (ABNORMAL) BASIC METABOLIC PANEL (CALCIUM TOTAL) (10/03/2021 12:09 AM CDT) Pathologist [facility] BUN 19 7 - 26 mg/dL 10/03/2021 12:51 AM [facility] Creatinine 1.35(H) 0.71 - 1.16 mg/dL 10/03/2021 12:51 AM [facility] Sodium 136 136 - 145 mmol/L 10/03/2021 12:51 AM [facility] Potassium 3.9 3.5 - 4.5 mmol/L 10/03/2021 12:51 AM [facility] Chloride 99 98 - 107 mmol/L 10/03/2021 12:51 AM [facility] CO2 29 22 - 29 mmol/L 10/03/2021 12:51 AM [facility] Glucose 109 70 - 115 mg/dL 10/03/2021 12:51 AM [facility] Calcium 9.0 8.4 - 10.2 mg/dL 10/03/2021 12:51 AM [facility] Anion Gap 12 8 - 18 10/03/2021 12:51 AM [facility] BUN/Creatinine Ratio 14 7 - 23 10/03/2021 12:51 AM [facility] Osmolality Calculated 285 270 - 300 mOsm/kg 10/03/2021 12:51 AM CDT [facility] eGFR by CKD-EPI 69(L) >=90 mL/min/1.7 3 m2 10/03/2021 12:51 AM CDT [facility] Blood BLOOD SPECIMEN / Unknown Venipuncture / Unknown 10/03/2021 12:09 AM CDT 10/03/2021 12:24 AM CDT Dar Kilpatrick MD LAB - CHEMISTRY OR DERABLES [facility] [address] [place] [address], [facility] [phone] * XR THORACOLUMBAR SPINE 2VW (10/02/2021 9:15 [...] normal. Dictated by Padmaja Wilson MD (radiology director). I, Dr. DONALD BLACKBURN have personally reviewed [...] normal. Dictated by Padmaja Wilson MD (radiology director). I, Dr. DONALD BLACKBURN have personally reviewed and interpreted this examination/study. This report was electronically signed by DONALD BLACKBURN on 10/04/2021 11:00 AM . Rocio Newton IN[employer] TE[employer]INTER/SANDB[employer]ER DIAGNOSTIC IMAGING O RDERABLES * (ABNORMAL) CBC W/O DIFFERENTIAL (10/02/2021 5:09 AM T) WBC 8.9 3.5 - 10.5 10? 3 /uL 10/02/2021 6:13 AM [facility] RBC 2.67(L) 4.30 - 5.70 10? 6 /uL 10/02/2021 6:13 AM [facility] Hemoglobin 7.8(L) 12.0 - 17.6 g/dL 10/02/2021 6:13 AM [facility] Hematocrit 23.6(L) 35.2 - 51.7 % 10/02/2021 6:13 AM [facility] MCV 88.4 80.7 - 98.3 fL 10/02/2021 6:13 AM [facility] MCH 29.2 26.7 - 34.0 pg 10/02/2021 6:13 AM [facility] MCHC 33.1 30.8 - 35.9 g/dL 10/02/2021 6:13 AM [facility] Platelet Count 140(L) 150 - 400 10? 3 /uL 10/02/2021 6:13 AM [facility] RDW-SD 53.6(H) 36.0 - 50.0 fL 10/02/2021 6:13 AM [facility] RDW-CV 16.6(H) 11.2 - 14.8 % 10/02/2021 6:13 AM [facility] MPV 11.4 9.4 - 12.9 fL 10/02/2021 6:13 AM [facility] nRBC Absolute 0.00 0 10? 3 /uL 10/02/2021 6:13 AM CDT [facility] nRBC Auto 0.0 0 /100 WBC 10/02/2021 6:13 AM CDT [facility] Blood BLOOD SPECIMEN / Unknown Venipuncture / Unknown 10/02/2021 5:09 AM CDT 10/02/2021 5:51 AM CDT Dar Kilpatrick MD LAB - HEMATOLOGY O RDERABLES Performing Organization Address [facility] Co de Phone Number [address] [address], [facility] [phone] * (ABNORMAL) CALCIUM IONIZED WHOLE BLOOD (10/02/2021 5:09 AM CDT) Calcium Ionized 1.11 mmol/L 10/02/2021 5:52 AM CDT [facility] pH 7.50(H) 7.35 - 7.45 pH 10/02/2021 5:52 AM CDT [facility] Ionized Calcium pH Adjusted 1.16(L) 1.19 - 1.34 mmol/L 10/02/2021 5:52 AM CDT [facility] Blood BLOOD SPECIMEN / Unknown Venipuncture / Unknown 10/02/2021 5:09 AM CDT 10/02/2021 5:49 AM CDT Dar Kilpatrick MD LAB - CHEMISTRY OR DERABLES Performing Organization Address [facility] Co de Phone Number [address] [address], [facility] [phone] * XR CHEST 1VW PORTABLE (10/02/2021 4:56 [...] Report dictated by Marek Santos MD (radiology director). Dr. RITIKA Connor M.D. have personally reviewed [...] Report dictated by Marek Santos MD (radiology director). Dr. RITIKA Connor M.D. have personally reviewed and interpreted this examination/study. This report was electronically signed by RITIKA VALERIO M.D. on 10/02/2021 3:36 PM . Dar Kilpatrick MD DIAGNOSTIC IMAGING ORDERABLES * PHOSPHORUS BLOOD (10/01/2021 11:33 PM CDT) Phosphorus 3.6 2.8 - 5.1 mg/dL 10/02/2021 12:25 AM CDT [facility] Blood BLOOD SPECIMEN / Unknown Venipuncture / Unknown 10/01/2021 11:33 PM CDT 10/01/2021 11:59 PM CDT Dar Kilpatrick MD LAB - CHEMISTRY OR DERABLES Performing Organization Address City/[facility]/ZIP Co de Phone Number [facility] [address] [place] [phone], [facility] [phone] * MAGNESIUM BLOOD (10/01/2021 11:33 PM CDT) Magnesium 2.2 1.6 - 2.6 mg/dL 10/02/2021 12:25 AM CDT [facility] Blood BLOOD SPECIMEN / Unknown Venipuncture / Unknown 10/01/2021 11:33 PM CDT 10/01/2021 11:59 PM CDT Dar Kilpatrick MD LAB - CHEMISTRY OR DERABLES [address] [address], [facility] [phone] * (ABNORMAL) BLOOD GASES ART + COOX PANEL (10/01/2021 11:33 PM CDT) pH Arterial 7.51(H) 7.35 - 7.45 pH 10/02/2021 12:20 AM CDT [facility] pO2 Arterial 173(H) 80 - 100 mmHg 10/02/2021 12:20 AM CDT [facility] pCO2 Arterial 38 35 - 45 mmHg 12:20 AM CDT [facility] HCO3 Arterial 30 20 - 30 mmol/l 10/02/2021 12:20 AM [facility] BE Arterial 6.8(H) -2.0 - 2.0 mmol/L 10/02/2021 12:20 AM [facility] Oxyhemoglobin Arterial 97.3 % 10/02/2021 12:20 AM [facility] Dexoyhemoglobin (HHB) % 0.9 % 10/02/2021 12:20 AM [facility] Methemoglobin <0.8 0.0 - 2.0 % 10/02/2021 12:20 AM [facility] Carboxyhemoglobin 1.5 0.0 - 2.0 % 2021 12:20 AM [facility] O2 Content Arterial 11.2 Interpret within clinical context mg/dL 10/02/2021 12:20 AM [facility] Hemoglobin by COOX 7.9(L) 12.0 - 17.6 g/dL 10/02/2021 12:20 AM [facility] O2 Saturation Arterial 99 90 - 100 % 10/02/2021 12:20 AM [facility] FI O2 Arterial 40.0 % 10/02/2021 12:20 AM [facility] Blood, arterial ARTERIAL BLOOD SPECIMEN / Unknown Arterial Puncture / Unknown 10/01/2021 11:33 PM T 10/01/2021 11:59 PM [facility] - 10/02/2021 12:20 AM [facility] Carboxyhemoglobin Normal Concentration: Non-smokers: 0-2%; Smokers: 0-9%; Toxic: >20% Dar Kilpatrick MD LAB - BLOOD GASES ORDERABLES [facility] [address] [place] [phone], [facility] [phone] * (ABNORMAL) BASIC METABOLIC PANEL (CALCIUM TOTAL) (10/01/2021 11:33 PM T) BUN 20 7 - 26 mg/dL 10/02/2021 12:25 AM [facility] Creatinine 1.43(H) 0.71 - 1.16 mg/dL 10/02/2021 12:25 AM [facility] Sodium 138 136 - 145 mmol/L 10/02/2021 12:25 AM [facility] Potassium 3.7 3.5 - 4.5 mmol/L 10/02/2021 12:25 AM [facility] Chloride 99 98 - 107 mmol/L 10/02/2021 12:25 AM [facility] CO2 30(H) 22 - 29 mmol/L 10/02/2021 12:25 AM [facility] Glucose 116(H) 70 - 115 mg/dL 10/02/2021 12:25 AM [facility] Calcium 8.6 8.4 - 10.2 mg/dL 10/02/2021 12:25 AM [facility] Anion Gap 13 8 - 18 10/02/2021 12:25 AM [facility] BUN/Creatinine Ratio 14 7 - 23 10/02/2021 12:25 AM [facility] Osmolality Calculated 290 270 - 300 mOsm/kg 10/02/2021 12:25 AM [facility] eGFR by CKD-EPI 64(L) >=90 mL/min/1.7 3 m2 10/02/2021 12:25 AM [facility] Blood BLOOD SPECIMEN / Unknown Venipuncture / Unknown 10/01/2021 11:33 PM CDT 10/01/2021 11:59 PM CDT Dar Kilpatrick MD LAB - CHEMISTRY OR DERABLES Performing Organization Address [facility]/State/[facility] Co de Phone Number [facility] [address] [place] [address], [facility] [phone] * XR CHEST 1VW PORTABLE (10/01/2021 12:31 [...] intact. Dictated by Donald Ramos MD (radiology director). Dr. CHIP Connor M.D. have personally reviewed [...] intact. Dictated by Donald Ramos MD (radiology director). Dr. CHIP Connor M.D. have personally reviewed andinterpreted this examination/study. This report was electronically signed by CHIP HUNT M.D. on 10/01/2021 2:41 PM . Dar Kilpatrick MD DIAGNOSTIC IMAGING ORDERABLES * (ABNORMAL) CBC W/O DIFFERENTIAL (10/01/2021 5:50 AM CDT) WBC 8.5 3.5 - 10.5 10? 3 /uL 10/01/2021 6:21 AM [facility] RBC 2.63(L) 4.30 - 5.70 10? 6 /uL 10/01/2021 6:21 AM [facility] Hemoglobin 7.8(L) 12.0 - 17.6 g/dL 10/01/2021 6:21 AM [facility] Hematocrit 22.9(L) 35.2 - 51.7 % 10/01/2021 6:21 AM [facility] MCV 87.1 80.7 - 98.3 fL 10/01/2021 6:21 AM [facility] MCH 29.7 26.7 - 34.0 pg 10/01/2021 6:21 AM [facility] MCHC 34.1 30.8 - 35.9 g/dL 10/01/2021 6:21 AM [facility] Platelet Count 111(L) 150 - 400 10? 3 /uL 10/01/2021 6:21 AM [facility] RDW-SD 54.5(H) 36.0 - 50.0 fL 10/01/2021 6:21 AM [facility] RDW-CV 17.1(H) 11.2 - 14.8 % 10/01/2021 6:21 AM [facility] MPV 10.9 9.4 - 12.9 fL 10/01/2021 6:21 AM [facility] nRBC Absolute 0.04(H) 0 10? 3 /uL 10/01/2021 6:21 AM [facility] nRBC Auto 0.5(H) 0 /100 WBC 10/01/2021 6:21 AM [facility] Blood BLOOD SPECIMEN / Unknown Venipuncture / Unknown 10/01/2021 5:50 AM CDT 10/01/2021 6:10 AM T Dar Kilpatrick MD LAB - HEMATOLOGY O RDERABLES [address] [place] [address], [facility] [phone] * (ABNORMAL) CALCIUM IONIZED WHOLE BLOOD (10/01/2021 5:09 AM CDT) Calcium Ionized 1.18 mmol/L 10/01/2021 5:21 AM CDT [facility] pH 7.50(H) 7.35 - 7.45 pH 10/01/2021 5:21 AM CDT [facility] Ionized Calcium pH Adjusted 1.23 1.19 - 1.34 mmol/L 10/01/2021 5:21 AM CDT [facility] Blood BLOOD SPECIMEN / Unknown Venipuncture / Unknown 10/01/2021 5:09 AM CDT 10/01/2021 5:13 AM CDT Dar Kilpatrick MD LAB - CHEMISTRY OR DERABLES Performing Organization Address City/State/[facility] Co in Phone Number [address] [place] [address], [facility] [phone] * XR CHEST 1VW PORTABLE (10/01/2021 4:54 [...] dictated by Elmer Gomez MD, PhD (radiology director). I, Dr. CHIP HUNT M.D. have personally [...] dictated by Elmer Gomez MD, PhD (radiology director). I, Dr. CHIP HUNT M.D. have personally reviewed andinterpreted this examination/study. This report was electronically signed by CHIP HUNT M.D. on 10/01/2021 3:31 PM . Dar Kilpatrick MD DIAGNOSTIC IMAGING ORDERABLES * PHOSPHORUS BLOOD (09/30/2021 11:35 PM CDT) Phosphorus 3.0 2.8 - 5.1 mg/dL 10/01/2021 12:10 AM CDT [facility] Blood BLOOD SPECIMEN / Unknown Venipuncture / Unknown 09/30/2021 11:35 PM CDT 09/30/2021 11:44 PM CDT Dar Kilpatrick MD LAB - CHEMISTRY OR DERABLES Performing Organization Address City/[facility]/ZIP Co de Phone Number [address] [address], [facility] [phone] * MAGNESIUM BLOOD (09/30/2021 11:35 PM CDT) Pathologist [facility] Magnesium 2.1 1.6 - 2.6 mg/dL 10/01/2021 12:10 AM CDT [facility] Blood BLOOD SPECIMEN / Unknown Venipuncture / Unknown 09/30/2021 11:35 PM CDT 09/30/2021 11:44 PM CDT Dar Kilpatrick MD LAB - CHEMISTRY OR DERABLES [address] [address], [facility] [phone] * (ABNORMAL) BLOOD GASES ART + COOX PANEL (09/30/2021 11:35 PM CDT) pH Arterial 7.51(H) 7.35 - 7.45 pH 09/30/2021 11:59 PM CDT [facility] pO2 Arterial 152(H) 80 - 100 mmHg 09/30/2021 11:59 PM [facility] pCO2 Arterial 45 35 - 45 mmHg 11:59 PM [facility] HCO3 Arterial 36(H) 20 - 30 mmol/l 09/30/2021 11:59 PM [facility] BE Arterial 11.7(H) -2.0 - 2.0 mmol/L 09/30/2021 11:59 PM [facility] Oxyhemoglobin Arterial 97.1 % 09/30/2021 11:59 PM [facility] Dexoyhemoglobin (HHB) % 0.5 % 09/30/2021 11:59 PM [facility] Methemoglobin <0.8 0.0 - 2.0 % 09/30/2021 11:59 PM [facility] Carboxyhemoglobin 1.7 0.0 - 2.0 % 2021 11:59 PM [facility] O2 Content Arterial 11.0 Interpret within clinical context mg/dL 09/30/2021 11:59 PM [facility] Hemoglobin by COOX 7.8(L) 12.0 - 17.6 g/dL 09/30/2021 11:59 PM [facility] O2 Saturation Arterial 100 90 - 100 % 09/30/2021 11:59 PM [facility] FI O2 Arterial 40.0 % 09/30/2021 11:59 PM [facility] Blood, arterial ARTERIAL BLOOD SPECIMEN / Unknown Arterial Puncture / Unknown 09/30/2021 11:35 PM T 09/30/2021 11:53 PM [facility] - 09/30/2021 11:59 PM [facility] Carboxyhemoglobin Normal Concentration: Non-smokers: 0-2%; Smokers: 0-9%; Toxic: >20% Dar Kilpatrick MD LAB - BLOOD GASES ORDERABLES [facility] [address] [place] [address], [facility] [phone] * (ABNORMAL) BASIC METABOLIC PANEL (CALCIUM TOTAL) (09/30/2021 11:35 PM CDT) BUN 15 7 - 26 mg/dL 10/01/2021 12:10 AM [facility] Creatinine 1.54(H) 0.71 - 1.16 mg/dL 10/01/2021 12:10 AM [facility] Sodium 139 136 - 145 mmol/L 10/01/2021 12:10 AM [facility] Potassium 3.6 3.5 - 4.5 mmol/L 10/01/2021 12:10 AM [facility] Chloride 98 98 - 107 mmol/L 10/01/2021 12:10 AM [facility] CO2 32(H) 22 - 29 mmol/L 10/01/2021 12:10 AM [facility] Glucose 120(H) 70 - 115 mg/dL 10/01/2021 12:10 AM [facility] Calcium 8.1(L) 8.4 - 10.2 mg/dL 10/01/2021 12:10 AM [facility] Anion Gap 13 8 - 18 10/01/2021 12:10 AM [facility] BUN/Creatinine Ratio 10 7 - 23 10/01/2021 12:10 AM [facility] Osmolality Calculated 290 270 - 300 mOsm/kg 10/01/2021 12:10 AM [facility] eGFR by CKD-EPI 59(L) >=90 mL/min/1.7 3 m2 10/01/2021 12:10 AM [facility] Blood BLOOD SPECIMEN / Unknown Venipuncture / Unknown 09/30/2021 11:35 PM CDT 09/30/2021 11:44 PM CDT Dar Kilpatrick MD LAB - CHEMISTRY OR DERABLES [address] [address], [facility] [phone] * (ABNORMAL) CBC W/O DIFFERENTIAL (09/30/2021 11:28 PM CDT) Pathologist [facility] WBC 8.8 3.5 - 10.5 10? 3 /uL 10/01/2021 12:01 AM [facility] RBC 2.64(L) 4.30 - 5.70 10? 6 /uL 10/01/2021 12:01 AM [facility] Hemoglobin 7.8(L) 12.0 - 17.6 g/dL 10/01/2021 12:01 AM [facility] Hematocrit 22.9(L) 35.2 - 51.7 % 10/01/2021 12:01 AM [facility] MCV 86.7 80.7 - 98.3 fL 10/01/2021 12:01 AM [facility] MCH 29.5 26.7 - 34.0 pg 10/01/2021 12:01 AM [facility] MCHC 34.1 30.8 - 35.9 g/dL 10/01/2021 12:01 AM [facility] Platelet Count 102(L) 150 - 400 10? 3 /uL 10/01/2021 12:01 AM [facility] RDW-SD 54.4(H) 36.0 - 50.0 fL 10/01/2021 12:01 AM [facility] RDW-CV 17.2(H) 11.2 - 14.8 % 10/01/2021 12:01 AM [facility] MPV 11.0 9.4 - 12.9 fL 10/01/2021 12:01 AM [facility] nRBC Absolute 0.02(H) 0 10? 3 /uL 10/01/2021 12:01 AM [facility] nRBC Auto 0.2(H) 0 /100 WBC 10/01/2021 12:01 AM [facility] Blood BLOOD SPECIMEN / Unknown Venipuncture / Unknown 09/30/2021 11:28 PM CDT 09/30/2021 11:44 PM T Dar Kilpatrick MD LAB - HEMATOLOGY O RDERABLES [facility] [address] [place] [address], [facility] [phone] * (ABNORMAL) CALCIUM IONIZED WHOLE BLOOD (09/30/2021 11:28 PM CDT) Pathologist [facility] Calcium Ionized 1.11 mmol/L 09/30/2021 11:53 PM [facility] pH 7.49(H) 7.35 - 7.45 pH 09/30/2021 11:53 PM [facility] Ionized Calcium pH Adjusted 1.15(L) 1.19 - 1.34 mmol/L 09/30/2021 11:53 PM [facility] Blood BLOOD SPECIMEN / Unknown Venipuncture / Unknown 09/30/2021 11:28 PM CDT 09/30/2021 11:40 PM CDT Dar Kilpatrick MD LAB - CHEMISTRY OR DERABLES Performing Organization Address [facility] Co de Phone Number [address] [address], [facility] [phone] * (ABNORMAL) BASIC METABOLIC PANEL (CALCIUM TOTAL) (09/30/2021 6:50 PM CDT) Pathologist [facility] BUN 13 7 - 26 mg/dL 09/30/2021 7:28 PM [facility] Creatinine 1.58(H) 0.71 - 1.16 mg/dL 09/30/2021 7:28 PM [facility] Sodium 139 136 - 145 mmol/L 09/30/2021 7:28 PM [facility] Potassium 3.7 3.5 - 4.5 mmol/L 09/30/2021 7:28 PM [facility] Chloride 97(L) 98 - 107 mmol/L 09/30/2021 7:28 PM [facility] CO2 30(H) 22 - 29 mmol/L 09/30/2021 7:28 PM [facility] Glucose 107 70 - 115 mg/dL 09/30/2021 7:28 PM [facility] Calcium 7.8(L) 8.4 - 10.2 mg/dL 09/30/2021 7:28 PM [facility] Anion Gap 16 8 - 18 09/30/2021 7:28 PM [facility] BUN/Creatinine Ratio 8 7 - 23 09/30/2021 7:28 PM [facility] Osmolality Calculated 289 270 - 300 mOsm/kg 09/30/2021 7:28 PM [facility] eGFR by CKD-EPI 57(L) >=90 mL/min/1.7 3 m2 09/30/2021 7:28 PM [facility] Blood BLOOD SPECIMEN / Unknown Venipuncture / Unknown 09/30/2021 6:50 PM CDT 09/30/2021 7:03 PM CDT Dar Kilpatrick MD LAB - CHEMISTRY OR DERABLES [facility] [address] [place] [address], [facility] [phone] * (ABNORMAL) BLOOD GASES ART + COOX PANEL (09/30/2021 6:50 PM CDT) pH Arterial 7.47(H) 7.35 - 7.45 pH 09/30/2021 7:09 PM [facility] pO2 Arterial 73(L) 80 - 100 mmHg 09/30/2021 7:09 PM [facility] pCO2 Arterial 48(H) 35 - 45 mmHg 7:09 PM [facility] HCO3 Arterial 35(H) 20 - 30 mmol/l 09/30/2021 7:09 PM [facility] BE Arterial 10.1(H) -2.0 - 2.0 mmol/L 09/30/2021 7:09 PM [facility] Oxyhemoglobin Arterial 94.4 % 09/30/2021 7:09 PM [facility] Dexoyhemoglobin (HHB) % 2.6 % 09/30/2021 7:09 PM [facility] Methemoglobin 0.9 0.0 - 2.0 % 09/30/2021 7:09 PM [facility] Carboxyhemoglobin 2.0 0.0 - 2.0 % 07/20/ 2022 7:09 PM CDT [facility] O2 Content Arterial 11.0 Interpret within clinical context mg/dL 09/30/2021 7:09 PM T [facility] Hemoglobin by COOX 8.2(L) 12.0 - 17.6 g/dL 09/30/2021 7:09 PM T [facility] O2 Saturation Arterial 97 90 - 100 % 09/30/2021 7:09 PM T [facility] FI O2 Arterial 40.0 % 09/30/2021 7:09 PM CDT [facility] Blood, arterial ARTERIAL BLOOD SPECIMEN / Unknown Arterial Puncture / Unknown 09/30/2021 6:50 PM CDT 09/30/2021 7:02 PM CDT Narrative [facility] - 09/30/2021 7:09 PM CDT Carboxyhemoglobin Normal Concentration: Non-smokers: 0-2%; Smokers: 0-9%; Toxic: >20% Dar Kilpatrick MD LAB - BLOOD GASES ORDERABLES [address] [address], [facility] [phone] * PHOSPHORUS BLOOD (09/30/2021 6:50 PM CDT) Phosphorus 2.9 2.8 - 5.1 mg/dL 09/30/2021 7:28 PM CDT [facility] Blood BLOOD SPECIMEN / Unknown Venipuncture / Unknown 09/30/2021 6:50 PM CDT 09/30/2021 7:03 PM CDT Dar Kilpatrick MD LAB - CHEMISTRY OR DERABLES [address] [address], [facility] [phone] * MAGNESIUM BLOOD (09/30/2021 6:50 PM CDT) Magnesium 2.1 1.6 - 2.6 mg/dL 09/30/2021 7:28 PM CDT [facility] Blood BLOOD SPECIMEN / Unknown Venipuncture / Unknown 09/30/2021 6:50 PM CDT 09/30/2021 7:03 PM CDT Dar Kilpatrick MD LAB - CHEMISTRY OR DERABLES [facility] [address] [place] [address], [facility] [phone] * (ABNORMAL) CBC W/O DIFFERENTIAL (09/30/2021 6:50 PM CDT) Pathologist [facility] WBC 7.5 3.5 - 10.5 10? 3 /uL 09/30/2021 7:40 PM CDT [facility] RBC 2.75(L) 4.30 - 5.70 10? 6 /uL 09/30/2021 7:40 PM T [facility] Hemoglobin 8.3(L) 12.0 - 17.6 g/dL 09/30/2021 7:40 PM T [facility] Hematocrit 23.8(L) 35.2 - 51.7 % 09/30/2021 7:40 PM T [facility] MCV 86.5 80.7 - 98.3 fL 09/30/2021 7:40 PM T [facility] MCH 30.2 26.7 - 34.0 pg 09/30/2021 7:40 PM CDT [facility] MCHC 34.9 30.8 - 35.9 g/dL 09/30/2021 7:40 PM T [facility] Platelet Count 86(L) 150 - 400 10? 3 /uL 09/30/2021 7:40 PM T [facility] RDW-SD 53.7(H) 36.0 - 50.0 fL 09/30/2021 7:40 PM T [facility] RDW-CV 17.0(H) 11.2 - 14.8 % 09/30/2021 7:40 PM T [facility] MPV 10.4 9.4 - 12.9 fL 09/30/2021 7:40 PM T [facility] nRBC Absolute 0.00 0 10? 3 /uL 09/30/2021 7:40 PM CDT [facility] nRBC Auto 0.0 0 /100 WBC 09/30/2021 7:40 PM CDT [facility] Blood BLOOD SPECIMEN / Unknown Venipuncture / Unknown 09/30/2021 6:50 PM CDT 09/30/2021 7:03 PM CDT Dar Kilpatrick MD LAB - HEMATOLOGY O RDERABLES Performing Organization Address [facility] Co de Phone Number [address] [address], [facility] [phone] * (ABNORMAL) CALCIUM IONIZED WHOLE BLOOD (09/30/2021 6:50 PM CDT) Pathologist [facility] Calcium Ionized 1.10 mmol/L 09/30/2021 7:04 PM CDT [facility] pH 7.48(H) 7.35 - 7.45 pH 09/30/2021 7:04 PM CDT [facility] Ionized Calcium pH Adjusted 1.14(L) 1.19 - 1.34 mmol/L 09/30/2021 7:04 PM CDT [facility] Blood BLOOD SPECIMEN / Unknown Venipuncture / Unknown 09/30/2021 6:50 PM CDT 09/30/2021 7:02 PM CDT Dar Kilpatrick MD LAB - CHEMISTRY OR DERABLES Performing Organization Address [facility] Co de Phone Number [address] [address], [place] [phone] * CT ABDOMEN PELVIS W CONTRAST (09/30/2021 [...] CDT) Dar Kilpatrick MD NURSING - BLOOD SC OD TRANSFUSION * TRANSFUSE RED BLOOD CELL LEUKOREDUCED UNIT(S), 1 Units (09/30/2021 5:21 PM CDT) Dar Kilpatrick MD NURSING - BLOOD SC OD TRANSFUSION * PREPARE (CROSSMATCH) RBC UNIT(S), 1 Units (09/30/2021 1:01 PM CDT) Unit Description AS1 LR PRBC [facility]OD [facility] LAB Unit ABO O [facility] Unit Rh POS [facility] Product Number R02 [facility] B[facility] Unit Donor # [id number] [facility] Unit Status transfused [facility] Product Code [id number] [facility] OD [facility] Blood Type Barcode 5100 [facility] Expiration Date S BLOOD BANK LAB Blood Bank BLOOD SPECIMEN / Unknown 09/27/2021 9:39 PM CDT Dar Kilpatrick MD LAB - BLOOD BANK O RDERABLES [facility] [address] [place] [address], [facility] [phone] * (ABNORMAL) BLOOD GASES ART + COOX PANEL (09/30/2021 11:48 AM CDT) pH Arterial 7.45 7.35 - 7.45 pH 09/30/2021 12:00 PM T [facility] pO2 Arterial 86 80 - 100 mmHg 09/30/2021 12:00 PM [facility] pCO2 Arterial 53(H) 35 - 45 mmHg 12:00 PM [facility] HCO3 Arterial 37(H) 20 - 30 mmol/l 09/30/2021 12:00 PM [facility] BE Arterial 11.0(H) -2.0 - 2.0 mmol/L 09/30/2021 12:00 PM [facility] Oxyhemoglobin Arterial 94.9 % 09/30/2021 12:00 PM [facility] Dexoyhemoglobin (HHB) % 2.3 % 09/30/2021 12:00 PM [facility] Methemoglobin 0.9 0.0 - 2.0 % 09/30/2021 12:00 PM [facility] Carboxyhemoglobin 1.8 0.0 - 2.0 % 2021 12:00 PM [facility] O2 Content Arterial 16.0 Interpret within clinical context mg/dL 09/30/2021 12:00 PM [facility] Hemoglobin by COOX 11.9(L) 12.0 - 17.6 g/dL 09/30/2021 12:00 PM [facility] O2 Saturation Arterial 98 90 - 100 % 09/30/2021 12:00 PM [facility] FI O2 Arterial 40.0 % 09/30/2021 12:00 PM T [facility] Blood, arterial ARTERIAL BLOOD SPECIMEN / Unknown Arterial Puncture / Unknown 09/30/2021 11:48 AM CDT 09/30/2021 11:52 AM CDT Narrative [facility] - 09/30/2021 12:00 PM CDT Carboxyhemoglobin Normal Concentration: Non-smokers: 0-2%; Smokers: 0-9%; Toxic: >20% Dar Kilpatrick MD LAB - BLOOD GASES ORDERABLES [address] [address], [facility] [phone] * (ABNORMAL) CALCIUM IONIZED WHOLE BLOOD (09/30/2021 11:48 AM CDT) Calcium Ionized 1.09 mmol/L 09/30/2021 11:59 AM [facility] pH 7.48(H) 7.35 - 7.45 pH 09/30/2021 11:59 AM [facility] Ionized Calcium pH Adjusted 1.13(L) 1.19 - 1.34 mmol/L 09/30/2021 11:59 AM T [facility] Blood BLOOD SPECIMEN / Unknown Venipuncture / Unknown 09/30/2021 11:48 AM CDT 09/30/2021 11:52 AM CDT Dar Kilpatrick MD LAB - CHEMISTRY OR DERABLES Performing Organization Address City/[facility]/ZIP Co de Phone Number [address] [address], [place] [phone] * (ABNORMAL) BASIC METABOLIC PANEL (CALCIUM TOTAL) (09/30/2021 11:48 AM CDT) BUN 14 7 - 26 mg/dL 09/30/2021 12:24 PM [facility] Creatinine 1.55(H) 0.71 - 1.16 mg/dL 09/30/2021 12:24 PM [facility] Sodium 138 136 - 145 mmol/L 09/30/2021 12:24 PM [facility] Potassium 3.4(L) 3.5 - 4.5 mmol/L 09/30/2021 12:24 PM [facility] Chloride 97(L) 98 - 107 mmol/L 09/30/2021 12:24 PM [facility] CO2 34(H) 22 - 29 mmol/L 09/30/2021 12:24 PM [facility] Glucose 128(H) 70 - 115 mg/dL 09/30/2021 12:24 PM [facility] Calcium 8.1(L) 8.4 - 10.2 mg/dL 09/30/2021 12:24 PM [facility] Anion Gap 10 8 - 18 09/30/2021 12:24 PM [facility] BUN/Creatinine Ratio 9 7 - 23 09/30/2021 12:24 PM [facility] Osmolality Calculated 288 270 - 300 mOsm/kg 09/30/2021 12:24 PM [facility] eGFR by CKD-EPI 58(L) >=90 mL/min/1.7 3 m2 09/30/2021 12:24 PM [facility] Blood BLOOD SPECIMEN / Unknown Venipuncture / Unknown 09/30/2021 11:48 AM CDT 09/30/2021 11:53 AM CDT Dar Kilpatrick MD LAB - CHEMISTRY OR DERABLES [facility] [address] [place] [address], [facility] [phone] * (ABNORMAL) CBC W AUTO DIFFERENTIAL (09/30/2021 11:48 AM CDT) WBC 7.9 3.5 - 10.5 10? 3 /uL 09/30/2021 12:17 PM [facility] RBC 2.28(L) 4.30 - 5.70 10? 6 /uL 09/30/2021 12:17 PM [facility] Hemoglobin 6.9(L) 12.0 - 17.6 g/dL 09/30/2021 12:17 PM [facility] Hematocrit 20.5(L) 35.2 - 51.7 % 09/30/2021 12:17 PM [facility] MCV 89.9 80.7 - 98.3 fL 09/30/2021 12:17 PM [facility] MCH 30.3 26.7 - 34.0 pg 09/30/2021 12:17 PM [facility] MCHC 33.7 30.8 - 35.9 g/dL 09/30/2021 12:17 PM [facility] Platelet Count 104(L) 150 - 400 10? 3 /uL 09/30/2021 12:17 PM [facility] RDW-SD 47.8 36.0 - 50.0 fL 09/30/2021 12:17 PM [facility] RDW-CV 14.6 11.2 - 14.8 % 09/30/2021 12:17 PM [facility] MPV 10.8 9.4 - 12.9 fL 09/30/2021 12:17 PM [facility] nRBC Absolute 0.02(H) 0 10? 3 /uL 09/30/2021 12:17 PM [facility] nRBC Auto 0.3(H) 0 /100 WBC 09/30/2021 12:17 PM [facility] Neutrophils % 83.4(H) 35.0 - 70.0 % 09/30/2021 12:17 PM [facility] Lymphocytes % 8.8(L) 20.0 - 43.0 % 09/30/2021 12:17 PM [facility] Monocytes % 6.5 5.0 - 13.0 % 09/30/2021 12:17 PM [facility] Eosinophils % 0.6 0.0 - 6.0 % 09/30/2021 12:17 PM [facility] Basophil % 0.1 0.0 - 2.0 % 09/30/2021 12:17 PM [facility] Neutrophils Absolute 6.54 1.60 - 7.00 10? 3 /uL 09/30/2021 12:17 PM [facility] Lymphocyte Absolute 0.69(L) 1.10 - 3.90 10? 3 /uL 09/30/2021 12:17 PM [facility] Monocytes Absolute 0.51 0.26 - 1.07 10? 3 /uL 09/30/2021 12:17 PM [facility] Eosinophils Absolute 0.05 0.00 - 0.47 10? 3 /uL 09/30/2021 12:17 PM [facility] Basophils Absolute 0.01 0.00 - 0.08 10? 3 /uL 09/30/2021 12:17 PM [facility] Immature Granulocytes % 0.6 0.0 - 1.0 % 09/30/2021 12:17 PM [facility] Immature Granulocytes Absolute 0.05 09/30/2021 12:17 PM [facility] Immature Platelet Fraction 4.1 1.1 - 6.2 % 09/30/2021 12:17 PM [facility] Blood BLOOD SPECIMEN / Unknown Venipuncture / Unknown 09/30/2021 11:48 AM CDT 09/30/2021 11:53 AM CDT Darrell Gomez MD LAB - HEMATOLOGY ORD ERABLES [facility] [address] [place] [address], [facility] [phone] * (ABNORMAL) GLUCOSE - POINT OF CARE (09/30/2021 11:45 AM CDT) Glucose WB/POC 147(H) 70 - 115 mg/dL 09/30/2021 11:50 AM T [facility] Specimen Type Arterial 09/30/2021 11:50 AM [facility] Blood BLOOD SPECIMEN / Unknown 09/30/2021 11:45 AM CDT 09/30/2021 11:50 AM CDT Dar Kilpatrick MD LAB - POINT OF CAR E ORDERABLES Performing Organization Address City/[facility]/ZIP Co de Phone Number [facility] [address] [place] [address], [facility] [phone] * TRANSFUSE RED BLOOD CELL LEUKOREDUCED UNIT(S) (09/30/2021 11:16 AM CDT) Dar Kilpatrick MD NURSING - BLOOD SC OD TRANSFUSION * TRANSFUSE RED BLOOD CELL LEUKOREDUCED UNIT(S), 1 Units (09/30/2021 11:16 AM CDT) Dar Kilpatrick MD NURSING - BLOOD SC OD TRANSFUSION * (ABNORMAL) GLUCOSE - POINT OF CARE (09/30/2021 8:10 AM CDT) Pathologist [facility] Glucose WB/POC 136(H) 70 - 115 mg/dL 09/30/2021 8:15 AM CDT [facility] Specimen Type Arterial 09/30/2021 8:15 AM CDT [facility] Blood BLOOD SPECIMEN / Unknown 09/30/2021 8:10 AM CDT 09/30/2021 8:15 AM CDT Dar Kilpatrick MD LAB - POINT OF CAR E ORDERABLES Performing Organization Address City/[facility]/ZIP Co de Phone Number [facility] [address] [place] [address], [place] [phone] * PREPARE (CROSSMATCH) RBC UNIT(S), 1 Units (09/30/2021 7:22 AM CDT) Unit Description AS1 LR PRBC [facility] BLOOD [facility] Unit ABO O [facility] Unit Rh POS [facility] Product Number R02 [facility] Unit Donor # [id number] [facility] Unit Status transfused [facility] OD [facility] Product Code [id number] [facility] BLO OD [facility] Blood Type Barcode 5100 [facility] Expiration Date S BLOOD BANK LAB Blood Bank BLOOD SPECIMEN / Unknown 09/27/2021 9:39 PM CDT Dar Kilpatrick MD LAB - BLOOD BANK O RDERABLES [facility] [address] [place] [address], [facility] [phone] * (ABNORMAL) BLOOD GASES ART + COOX PANEL (09/30/2021 5:47 AM CDT) pH Arterial 7.54(H) 7.35 - 7.45 pH 09/30/2021 6:19 AM [facility] pO2 Arterial 70(L) 80 - 100 mmHg 09/30/2021 6:19 AM [facility] pCO2 Arterial 42 35 - 45 mmHg 6:19 AM [facility] HCO3 Arterial 36(H) 20 - 30 mmol/l 09/30/2021 6:19 AM [facility] BE Arterial 12.3(H) -2.0 - 2.0 mmol/L 09/30/2021 6:19 AM [facility] Oxyhemoglobin Arterial 94.5 % 09/30/2021 6:19 AM [facility] Dexoyhemoglobin (HHB) % 1.8 % 09/30/2021 6:19 AM [facility] Methemoglobin 1.7 0.0 - 2.0 % 09/30/2021 6:19 AM [facility] Carboxyhemoglobin 2.0 0.0 - 2.0 % 2021 6:19 AM [facility] O2 Content Arterial 8.9 Interpret within clinical context mg/dL 09/30/2021 6:19 AM [facility] Hemoglobin by COOX 6.6(L) 12.0 - 17.6 g/dL 09/30/2021 6:19 AM [facility] O2 Saturation Arterial 98 90 - 100 % 09/30/2021 6:19 AM [facility] FI O2 Arterial 40.0 % 09/30/2021 6:19 AM CDT [facility] Blood, arterial ARTERIAL BLOOD SPECIMEN / Unknown Arterial Puncture / Unknown 09/30/2021 5:47 AM CDT 09/30/2021 5:51 AM CDT Narrative [facility] - 09/30/2021 6:19 AM CDT Carboxyhemoglobin Normal Concentration: Non-smokers: 0-2%; Smokers: 0-9%; Toxic: >20% Dar Kilpatrick MD LAB - BLOOD GASES ORDERABLES Performing Organization Address City/[facility]/ZIP Co de Phone Number [facility] [address] [place] [address], [facility] [phone] * (ABNORMAL) CALCIUM IONIZED WHOLE BLOOD (09/30/2021 5:47 AM CDT) Calcium Ionized 1.21 mmol/L 09/30/2021 5:58 AM [facility] pH 7.57(H) 7.35 - 7.45 pH 09/30/2021 5:58 AM [facility] Ionized Calcium pH Adjusted 1.30 1.19 - 1.34 mmol/L 09/30/2021 5:58 AM T [facility] Blood BLOOD SPECIMEN / Unknown Venipuncture / Unknown 09/30/2021 5:47 AM CDT 09/30/2021 5:51 AM CDT Dar Kilpatrick MD LAB - CHEMISTRY OR DERABLES [facility] [address] [place] [phone], [facility] [phone] * (ABNORMAL) BASIC METABOLIC PANEL (CALCIUM TOTAL) (09/30/2021 5:47 AM CDT) BUN 16 7 - 26 mg/dL 09/30/2021 6:22 AM T [facility] Creatinine 1.63(H) 0.71 - 1.16 mg/dL 09/30/2021 6:22 AM T [facility] Sodium 138 136 - 145 mmol/L 09/30/2021 6:22 AM [facility] Potassium 3.4(L) 3.5 - 4.5 mmol/L 09/30/2021 6:22 AM [facility] Chloride 97(L) 98 - 107 mmol/L 09/30/2021 6:22 AM [facility] CO2 35(H) 22 - 29 mmol/L 09/30/2021 6:22 AM [facility] Glucose 130(H) 70 - 115 mg/dL 09/30/2021 6:22 AM [facility] Calcium 8.5 8.4 - 10.2 mg/dL 09/30/2021 6:22 AM [facility] Anion Gap 9 8 - 18 09/30/2021 6:22 AM [facility] BUN/Creatinine Ratio 10 7 - 23 09/30/2021 6:22 AM [facility] Osmolality Calculated 289 270 - 300 mOsm/kg 09/30/2021 6:22 AM [facility] eGFR by CKD-EPI 55(L) >=90 mL/min/1.7 3 m2 09/30/2021 6:22 AM [facility] Blood BLOOD SPECIMEN / Unknown Venipuncture / Unknown 09/30/2021 5:47 AM CDT 09/30/2021 5:57 AM CDT Dar Kilpatrick MD LAB - CHEMISTRY OR DERABLES Performing Organization Address [facility] Co de Phone Number [facility] [address] [place] [phone], [facility] [phone] * (ABNORMAL) CBC W AUTO DIFFERENTIAL (09/30/2021 5:47 AM CDT) WBC 7.0 3.5 - 10.5 10? 3 /uL 09/30/2021 6:05 AM [facility] RBC 2.01(L) 4.30 - 5.70 10? 6 /uL 09/30/2021 6:05 AM [facility] Hemoglobin 6.3(L) 12.0 - 17.6 g/dL 09/30/2021 6:05 AM [facility] Hematocrit 18.4(L) 35.2 - 51.7 % 09/30/2021 6:05 AM [facility] MCV 91.5 80.7 - 98.3 fL 09/30/2021 6:05 AM [facility] MCH 31.3 26.7 - 34.0 pg 09/30/2021 6:05 AM [facility] MCHC 34.2 30.8 - 35.9 g/dL 09/30/2021 6:05 AM [facility] Platelet Count 108(L) 150 - 400 10? 3 /uL 09/30/2021 6:05 AM [facility] RDW-SD 45.9 36.0 - 50.0 fL 09/30/2021 6:05 AM [facility] RDW-CV 13.6 11.2 - 14.8 % 09/30/2021 6:05 AM [facility] MPV 10.8 9.4 - 12.9 fL 09/30/2021 6:05 AM [facility] nRBC Absolute 0.00 0 10? 3 /uL 09/30/2021 6:05 AM [facility] nRBC Auto 0.0 0 /100 WBC 09/30/2021 6:05 AM [facility] Neutrophils % 83.0(H) 35.0 - 70.0 % 09/30/2021 6:05 AM [facility] Lymphocytes % 9.1(L) 20.0 - 43.0 % 09/30/2021 6:05 AM [facility] Monocytes % 7.0 5.0 - 13.0 % 09/30/2021 6:05 AM [facility] Eosinophils % 0.4 0.0 - 6.0 % 09/30/2021 6:05 AM [facility] Basophil % 0.1 0.0 - 2.0 % 09/30/2021 6:05 AM [facility] Neutrophils Absolute 5.84 1.60 - 7.00 10? 3 /uL 09/30/2021 6:05 AM [facility] Lymphocyte Absolute 0.64(L) 1.10 - 3.90 10? 3 /uL 09/30/2021 6:05 AM CDT [facility] Monocytes Absolute 0.49 0.26 - 1.07 10? 3 /uL 09/30/2021 6:05 AM CDT [facility] Eosinophils Absolute 0.03 0.00 - 0.47 10? 3 /uL 09/30/2021 6:05 AM CDT [facility] Basophils Absolute 0.01 0.00 - 0.08 10? 3 /uL 09/30/2021 6:05 AM CDT [facility] Immature Granulocytes % 0.4 0.0 - 1.0 % 09/30/2021 6:05 AM T [facility] [facility] Immature Granulocytes Absolute 0.03 09/30/2021 6:05 AM CDT [facility] Immature Platelet Fraction 4.7 1.1 - 6.2 % 09/30/2021 6:05 AM T [facility] Blood BLOOD SPECIMEN / Unknown Venipuncture / Unknown 09/30/2021 5:47 AM CDT 09/30/2021 5:57 AM CDT Darrell Gomez MD LAB - HEMATOLOGY ORD ERABLES [facility] [address] [place] [address], [facility] [phone] * XR CHEST 1VW PORTABLE (09/30/2021 4:26 [...] Report dictated by Marek Santos MD (radiology director). IDr. [email or web address] DIIORIO have personally reviewed and [...] Report dictated by Marek Santos MD (radiology director). Dr. AIDEN Connor have personally reviewed and interpreted this examination/study. This report was electronically signed by AIDEN MCKEON on 09/30/2021 4:07 PM . Dar Kilpatrick MD DIAGNOSTIC IMAGING ORDERABLES * (ABNORMAL) GLUCOSE - POINT OF CARE (09/30/2021 3:49 AM CDT) Glucose WB/POC 141(H) 70 - 115 mg/dL 09/30/2021 3:50 AM CDT [facility] Specimen Type Cap Fingerstick 2021 3:50 AM CDT [facility] Blood BLOOD SPECIMEN / Unknown 09/30/2021 3:49 AM CDT 09/30/2021 3:50 AM CDT Dar Kilpatrick MD LAB - POINT OF CAR E ORDERABLES [facility] [address] [place] [address], [facility] [phone] * (ABNORMAL) BLOOD GASES ART + COOX PANEL (09/30/2021 12:16 AM [facility]) pH Arterial 7.50(H) 7.35 - 7.45 pH 09/30/2021 12:33 AM [facility] pO2 Arterial 90 80 - 100 mmHg 09/30/2021 12:33 AM [facility] pCO2 Arterial 48(H) 35 - 45 mmHg 12:33 AM [facility] HCO3 Arterial 37(H) 20 - 30 mmol/l 09/30/2021 12:33 AM [facility] BE Arterial 12.9(H) -2.0 - 2.0 mmol/L 09/30/2021 12:33 AM [facility] Oxyhemoglobin Arterial 96.0 % 09/30/2021 12:33 AM [facility] Dexoyhemoglobin (HHB) % 1.8 % 09/30/2021 12:33 AM [facility] Methemoglobin <0.8 0.0 - 2.0 % 09/30/2021 12:33 AM [facility] Carboxyhemoglobin 1.4 0.0 - 2.0 % 2021 12:33 AM [facility] O2 Content Arterial 10.2 Interpret within clinical context mg/dL 09/30/2021 12:33 AM [facility] Hemoglobin by COOX 7.4(L) 12.0 - 17.6 g/dL 09/30/2021 12:33 AM [facility] O2 Saturation Arterial 98 90 - 100 % 09/30/2021 12:33 AM [facility] FI O2 Arterial 40.0 % 09/30/2021 12:33 AM [facility] Blood, arterial ARTERIAL BLOOD SPECIMEN / Unknown Arterial Puncture / Unknown 09/30/2021 12:16 AM CDT 09/30/2021 12:19 AM [facility] - 09/30/2021 12:33 AM CDT Carboxyhemoglobin Normal Concentration: Non-smokers: 0-2%; Smokers: 0-9%; Toxic: >20% Dar Kilpatrick MD LAB - BLOOD GASES ORDERABLES Performing Organization Address [facility] Co de Phone Number [address] [address], [facility] [phone] * (ABNORMAL) CALCIUM IONIZED WHOLE BLOOD (09/30/2021 12:16 AM CDT) Pathologist [facility] Calcium Ionized 1.11 mmol/L 09/30/2021 12:24 AM T [facility] pH 7.49(H) 7.35 - 7.45 pH 09/30/2021 12:24 AM [facility] Ionized Calcium pH Adjusted 1.15(L) 1.19 - 1.34 mmol/L 09/30/2021 12:24 AM [facility] Blood BLOOD SPECIMEN / Unknown Venipuncture / Unknown 09/30/2021 12:16 AM CDT 09/30/2021 12:19 AM CDT Dar Kilpatrick MD LAB - CHEMISTRY OR DERABLES Performing Organization Address [facility]/ZIP Co de Phone Number [address] [address], [facility] [phone] * (ABNORMAL) BASIC METABOLIC PANEL (CALCIUM TOTAL) (09/30/2021 12:16 AM CDT) Pathologist [facility] BUN 16 7 - 26 mg/dL 09/30/2021 12:46 AM [facility] Creatinine 1.72(H) 0.71 - 1.16 mg/dL 09/30/2021 12:46 AM [facility] Sodium 139 136 - 145 mmol/L 09/30/2021 12:46 AM T [facility] Potassium 3.5 3.5 - 4.5 mmol/L 09/30/2021 12:46 AM T [facility] Chloride 99 98 - 107 mmol/L 09/30/2021 12:46 AM [facility] CO2 33(H) 22 - 29 mmol/L 09/30/2021 12:46 AM [facility] Glucose 130(H) 70 - 115 mg/dL 09/30/2021 12:46 AM [facility] Calcium 7.9(L) 8.4 - 10.2 mg/dL 09/30/2021 12:46 AM [facility] Anion Gap 11 8 - 18 09/30/2021 12:46 AM [facility] BUN/Creatinine Ratio 9 7 - 23 09/30/2021 12:46 AM [facility] Osmolality Calculated 291 270 - 300 mOsm/kg 09/30/2021 12:46 AM [facility] eGFR by CKD-EPI 52(L) >=90 mL/min/1.7 3 m2 09/30/2021 12:46 AM [facility] Blood BLOOD SPECIMEN / Unknown Venipuncture / Unknown 09/30/2021 12:16 AM CDT 09/30/2021 12:20 AM T Dar Kilpatrick MD LAB - CHEMISTRY OR DERABLES Performing Organization Address City/State/[facility] Co de Phone Number [facility] [address] [place] [address], [facility] [phone] * (ABNORMAL) CBC W AUTO DIFFERENTIAL (09/30/2021 12:16 AM [facility]) WBC 7.7 3.5 - 10.5 10? 3 /uL 09/30/2021 12:26 AM [facility] RBC 2.08(L) 4.30 - 5.70 10? 6 /uL 09/30/2021 12:26 AM [facility] Hemoglobin 6.5(L) 12.0 - 17.6 g/dL 09/30/2021 12:26 AM [facility] Hematocrit 19.0(L) 35.2 - 51.7 % 09/30/2021 12:26 AM [facility] MCV 91.3 80.7 - 98.3 fL 09/30/2021 12:26 AM [facility] MCH 31.3 26.7 - 34.0 pg 09/30/2021 12:26 AM [facility] MCHC 34.2 30.8 - 35.9 g/dL 09/30/2021 12:26 AM [facility] Platelet Count 102(L) 150 - 400 10? 3 /uL 09/30/2021 12:26 AM [facility] RDW-SD 46.5 36.0 - 50.0 fL 09/30/2021 12:26 AM [facility] RDW-CV 13.7 11.2 - 14.8 % 09/30/2021 12:26 AM [facility] MPV 10.8 9.4 - 12.9 fL 09/30/2021 12:26 AM [facility] nRBC Absolute 0.00 0 10? 3 /uL 09/30/2021 12:26 AM [facility] nRBC Auto 0.0 0 /100 WBC 09/30/2021 12:26 AM [facility] Neutrophils % 84.0(H) 35.0 - 70.0 % 09/30/2021 12:26 AM [facility] Lymphocytes % 7.7(L) 20.0 - 43.0 % 09/30/2021 12:26 AM [facility] Monocytes % 7.0 5.0 - 13.0 % 09/30/2021 12:26 AM [facility] Eosinophils % 0.4 0.0 - 6.0 % 09/30/2021 12:26 AM [facility] Basophil % 0.1 0.0 - 2.0 % 09/30/2021 12:26 AM [facility] Neutrophils Absolute 6.44 1.60 - 7.00 10? 3 /uL 09/30/2021 12:26 AM [facility] Lymphocyte Absolute 0.59(L) 1.10 - 3.90 10? 3 /uL 09/30/2021 12:26 AM [facility] Monocytes Absolute 0.54 0.26 - 1.07 10? 3 /uL 09/30/2021 12:26 AM [facility] Eosinophils Absolute 0.03 0.00 - 0.47 10? 3 /uL 09/30/2021 12:26 AM CDT [facility] Basophils Absolute 0.01 0.00 - 0.08 10? 3 /uL 09/30/2021 12:26 AM CDT [facility] Immature Granulocytes % 0.8 0.0 - 1.0 % 09/30/2021 12:26 AM CDT [facility] Immature Granulocytes Absolute 0.06 09/30/2021 12:26 AM CDT [facility] Immature Platelet Fraction 4.8 1.1 - 6.2 % 09/30/2021 12:26 AM CDT [facility] Blood BLOOD SPECIMEN / Unknown Venipuncture / Unknown 09/30/2021 12:16 AM CDT 09/30/2021 12:20 AM CDT Darrell Gomez MD LAB - HEMATOLOGY ORD ERABLES Performing Organization Address City/[facility]/ZIP Co de Phone Number [address] [address], [facility] [phone] * (ABNORMAL) PHOSPHORUS BLOOD (09/30/2021 12:16 AM CDT) Phosphorus 2.4(L) 2.8 - 5.1 mg/dL 09/30/2021 12:46 AM CDT [facility] Blood BLOOD SPECIMEN / Unknown Venipuncture / Unknown 09/30/2021 12:16 AM CDT 09/30/2021 12:20 AM CDT Dar Kilpatrick MD LAB - CHEMISTRY OR DERABLES [address] [address], [facility] [phone] * MAGNESIUM BLOOD (09/30/2021 12:16 AM CDT) Magnesium 1.9 1.6 - 2.6 mg/dL 09/30/2021 12:46 AM CDT [facility] Blood BLOOD SPECIMEN / Unknown Venipuncture / Unknown 09/30/2021 12:16 AM CDT 09/30/2021 12:20 AM CDT Dar Kilpatrick MD LAB - CHEMISTRY OR DERABLES [address] [address], [place] [phone] * (ABNORMAL) GLUCOSE - POINT OF CARE (09/30/2021 12:12 AM CDT) Glucose WB/POC 136(H) 70 - 115 mg/dL 09/30/2021 12:15 AM CDT [facility] Specimen Type Arterial 09/30/2021 12:15 AM CDT [facility] Blood BLOOD SPECIMEN / Unknown 09/30/2021 12:12 AM CDT 09/30/2021 12:15 AM CDT Dar Kilpatrick MD LAB - POINT OF CAR E ORDERABLES Performing Organization Address City/[facility]/ZIP Co de Phone Number [address] [address], [place] [phone] * (ABNORMAL) GLUCOSE - POINT OF CARE (09/29/2021 8:18 PM CDT) Glucose WB/POC 122(H) 70 - 115 mg/dL 09/29/2021 8:19 PM CDT [facility] Specimen Type Cap Fingerstick 2021 8:19 PM CDT [facility] Blood BLOOD SPECIMEN / Unknown 09/29/2021 8:18 PM CDT 09/29/2021 8:19 PM CDT Dar Kilpatrick MD LAB - POINT OF CAR E ORDERABLES [address] [address], [place] [phone] * (ABNORMAL) BLOOD GASES ART + COOX PANEL (09/29/2021 6:36 PM CDT) pH Arterial 7.48(H) 7.35 - 7.45 pH 09/29/2021 6:43 PM [facility] pO2 Arterial 105(H) 80 - 100 mmHg 09/29/2021 6:43 PM [facility] pCO2 Arterial 45 35 - 45 mmHg 6:43 PM [facility] HCO3 Arterial 34(H) 20 - 30 mmol/l 09/29/2021 6:43 PM [facility] BE Arterial 9.1(H) -2.0 - 2.0 mmol/L 09/29/2021 6:43 PM [facility] Oxyhemoglobin Arterial 97.2 % 09/29/2021 6:43 PM [facility] Dexoyhemoglobin (HHB) % 0.6 % 09/29/2021 6:43 PM [facility] Methemoglobin <0.8 0.0 - 2.0 % 09/29/2021 6:43 PM [facility] Carboxyhemoglobin 1.4 0.0 - 2.0 % 2021 6:43 PM [facility] O2 Content Arterial 10.3 Interpret within clinical context mg/dL 09/29/2021 6:43 PM [facility] Hemoglobin by COOX 7.4(L) 12.0 - 17.6 g/dL 09/29/2021 6:43 PM [facility] O2 Saturation Arterial 99 90 - 100 % 09/29/2021 6:43 PM [facility] FI O2 Arterial 40.0 % 09/29/2021 6:43 PM [facility] Blood, arterial ARTERIAL BLOOD SPECIMEN / Unknown Arterial Puncture / Unknown 09/29/2021 6:36 PM CDT 09/29/2021 6:41 PM [facility] - 09/29/2021 6:43 PM [facility] Carboxyhemoglobin Normal Concentration: Non-smokers: 0-2%; Smokers: 0-9%; Toxic: >20% Dar Kilpatrick MD LAB - BLOOD GASES ORDERABLES [facility] [address] [place] [address], [facility] [phone] * (ABNORMAL) CALCIUM IONIZED WHOLE BLOOD (09/29/2021 6:36 PM CDT) Calcium Ionized 1.08 mmol/L 09/29/2021 6:43 PM [facility] pH 7.48(H) 7.35 - 7.45 pH 09/29/2021 6:43 PM [facility] Ionized Calcium pH Adjusted 1.12(L) 1.19 - 1.34 mmol/L 09/29/2021 6:43 PM [facility] Blood BLOOD SPECIMEN / Unknown Venipuncture / Unknown 09/29/2021 6:36 PM CDT 09/29/2021 6:40 PM CDT Dar Kilpatrick MD LAB - CHEMISTRY OR DERABLES Performing Organization Address [facility] Co de Phone Number [address] [address], [facility] [phone] * (ABNORMAL) BASIC METABOLIC PANEL (CALCIUM TOTAL) (09/29/2021 6:36 PM CDT) Pathologist [facility] BUN 18 7 - 26 mg/dL 09/29/2021 7:06 PM [facility] Creatinine 1.80(H) 0.71 - 1.16 mg/dL 09/29/2021 7:06 PM [facility] Sodium 141 136 - 145 mmol/L 09/29/2021 7:06 PM [facility] Potassium 3.5 3.5 - 4.5 mmol/L 09/29/2021 7:06 PM [facility] Chloride 102 98 - 107 mmol/L 09/29/2021 7:06 PM [facility] CO2 32(H) 22 - 29 mmol/L 09/29/2021 7:06 PM [facility] Glucose 134(H) 70 - 115 mg/dL 09/29/2021 7:06 PM [facility] Calcium 8.0(L) 8.4 - 10.2 mg/dL 09/29/2021 7:06 PM [facility] Anion Gap 11 8 - 18 09/29/2021 7:06 PM [facility] BUN/Creatinine Ratio 10 7 - 23 09/29/2021 7:06 PM [facility] Osmolality Calculated 296 270 - 300 mOsm/kg 09/29/2021 7:06 PM [facility] eGFR by CKD-EPI 49(L) >=90 mL/min/1.7 3 m2 09/29/2021 7:06 PM [facility] Blood BLOOD SPECIMEN / Unknown Venipuncture / Unknown 09/29/2021 6:36 PM CDT 09/29/2021 6:40 PM CDT Dar Kilpatrick MD LAB - CHEMISTRY OR DERABLES [facility] [address] [place] [address], [facility] [phone] * (ABNORMAL) CBC W AUTO DIFFERENTIAL (09/29/2021 6:36 PM CDT) WBC 9.3 3.5 - 10.5 10? 3 /uL 09/29/2021 6:46 PM [facility] RBC 2.26(L) 4.30 - 5.70 10? 6 /uL 09/29/2021 6:46 PM [facility] Hemoglobin 7.1(L) 12.0 - 17.6 g/dL 09/29/2021 6:46 PM [facility] Hematocrit 20.4(L) 35.2 - 51.7 % 09/29/2021 6:46 PM [facility] MCV 90.3 80.7 - 98.3 fL 09/29/2021 6:46 PM [facility] MCH 31.4 26.7 - 34.0 pg 09/29/2021 6:46 PM [facility] MCHC 34.8 30.8 - 35.9 g/dL 09/29/2021 6:46 PM [facility] Platelet Count 110(L) 150 - 400 10? 3 /uL 09/29/2021 6:46 PM [facility] RDW-SD 45.9 36.0 - 50.0 fL 09/29/2021 6:46 PM [facility] RDW-CV 13.9 11.2 - 14.8 % 09/29/2021 6:46 PM [facility] MPV 10.6 9.4 - 12.9 fL 09/29/2021 6:46 PM [facility] nRBC Absolute 0.00 0 10? 3 /uL 09/29/2021 6:46 PM [facility] nRBC Auto 0.0 0 /100 WBC 09/29/2021 6:46 PM [facility] Neutrophils % 82.9(H) 35.0 - 70.0 % 09/29/2021 6:46 PM [facility] Lymphocytes % 8.3(L) 20.0 - 43.0 % 09/29/2021 6:46 PM [facility] Monocytes % 7.9 5.0 - 13.0 % 09/29/2021 6:46 PM [facility] Eosinophils % 0.3 0.0 - 6.0 % 09/29/2021 6:46 PM [facility] Basophil % 0.1 0.0 - 2.0 % 09/29/2021 6:46 PM [facility] Neutrophils Absolute 7.70(H) 1.60 - 7.00 10? 3 /uL 09/29/2021 6:46 PM [facility] Lymphocyte Absolute 0.77(L) 1.10 - 3.90 10? 3 /uL 09/29/2021 6:46 PM [facility] Monocytes Absolute 0.73 0.26 - 1.07 10? 3 /uL 09/29/2021 6:46 PM [facility] Eosinophils Absolute 0.03 0.00 - 0.47 10? 3 /uL 09/29/2021 6:46 PM [facility] Basophils Absolute 0.01 0.00 - 0.08 10? 3 /uL 09/29/2021 6:46 PM [facility] Immature Granulocytes % 0.5 0.0 - 1.0 % 09/29/2021 6:46 PM [facility] Immature Granulocytes Absolute 0.05 09/29/2021 6:46 PM CDT [facility] Immature Platelet Fraction 4.8 1.1 - 6.2 % 09/29/2021 6:46 PM CDT [facility] Blood BLOOD SPECIMEN / Unknown Venipuncture / Unknown 09/29/2021 6:36 PM CDT 09/29/2021 6:41 PM CDT Darrell Gomez MD LAB - HEMATOLOGY ORD ERABLES Performing Organization Address [facility]/ZIP Co de Phone Number [address] [address], [place] [phone] * (ABNORMAL) GLUCOSE - POINT OF CARE (09/29/2021 4:12 PM CDT) Glucose WB/POC 138(H) 70 - 115 mg/dL 09/29/2021 4:17 PM CDT [facility] Specimen Type Cap Fingerstick 2021 4:17 PM CDT [facility] Blood BLOOD SPECIMEN / Unknown 09/29/2021 4:12 PM CDT 09/29/2021 4:17 PM CDT Dar Kilpatrick MD LAB - POINT OF CAR E ORDERABLES Performing Organization Address [facility] Co de Phone Number [address] [address], [place] [phone] * CT CHEST WO CONTRAST (09/29/2021 2:30 [...] ART + COOX PANEL (09/29/2021 12:36 PM [facility]) pH Arterial 7.49(H) 7.35 - 7.45 pH 09/29/2021 12:43 PM [facility] pO2 Arterial 151(H) 80 - 100 mmHg 09/29/2021 12:43 PM [facility] pCO2 Arterial 40 35 - 45 mmHg 12:43 PM [facility] HCO3 Arterial 31(H) 20 - 30 mmol/l 09/29/2021 12:43 PM [facility] BE Arterial 6.6(H) -2.0 - 2.0 mmol/L 09/29/2021 12:43 PM [facility] Oxyhemoglobin Arterial 98.6 % 09/29/2021 12:43 PM [facility] Dexoyhemoglobin (HHB) % 0.5 % 09/29/2021 12:43 PM [facility] Methemoglobin <0.8 0.0 - 2.0 % 09/29/2021 12:43 PM [facility] Carboxyhemoglobin 0.9 0.0 - 2.0 % 2021 12:43 PM [facility] O2 Content Arterial 10.3 Interpret within clinical context mg/dL 09/29/2021 12:43 PM [facility] Hemoglobin by COOX 7.2(L) 12.0 - 17.6 g/dL 09/29/2021 12:43 PM [facility] O2 Saturation Arterial 100 90 - 100 % 09/29/2021 12:43 PM [facility] FI O2 Arterial 40.0 % 09/29/2021 12:43 PM [facility] Blood, arterial ARTERIAL BLOOD SPECIMEN / Unknown Arterial Puncture / Unknown 09/29/2021 12:36 PM CDT 09/29/2021 12:39 PM [facility] - 09/29/2021 12:43 PM [facility] Carboxyhemoglobin Normal Concentration: Non-smokers: 0-2%; Smokers: 0-9%; Toxic: >20% Dar Kilpatrick MD LAB - BLOOD GASES ORDERABLES Performing Organization Address City/[facility]/ZIP Co de Phone Number [address] [address], [facility] [phone] * (ABNORMAL) CALCIUM IONIZED WHOLE BLOOD (09/29/2021 12:36 PM CDT) Calcium Ionized 1.13 mmol/L 09/29/2021 12:43 PM CDT [facility] pH 7.48(H) 7.35 - 7.45 pH 09/29/2021 12:43 PM CDT [facility] Ionized Calcium pH Adjusted 1.17(L) 1.19 - 1.34 mmol/L 09/29/2021 12:43 PM [facility] Blood BLOOD SPECIMEN / Unknown Venipuncture / Unknown 09/29/2021 12:36 PM CDT 09/29/2021 12:39 PM CDT Dar Kilpatrick MD LAB - CHEMISTRY OR DERABLES Performing Organization Address [facility]/ZIP Co de Phone Number [address] [address], [facility] [phone] * (ABNORMAL) BASIC METABOLIC PANEL (CALCIUM TOTAL) (09/29/2021 12:36 PM CDT) BUN 19 7 - 26 mg/dL 09/29/2021 1:07 PM T [facility] Creatinine 1.89(H) 0.71 - 1.16 mg/dL 09/29/2021 1:07 PM [facility] Sodium 141 136 - 145 mmol/L 09/29/2021 1:07 PM [facility] Potassium 3.8 3.5 - 4.5 mmol/L 09/29/2021 1:07 PM [facility] Chloride 104 98 - 107 mmol/L 09/29/2021 1:07 PM [facility] CO2 29 22 - 29 mmol/L 09/29/2021 1:07 PM [facility] Glucose 121(H) 70 - 115 mg/dL 09/29/2021 1:07 PM [facility] Calcium 8.0(L) 8.4 - 10.2 mg/dL 09/29/2021 1:07 PM [facility] Anion Gap 12 8 - 18 09/29/2021 1:07 PM [facility] BUN/Creatinine Ratio 10 7 - 23 09/29/2021 1:07 PM [facility] Osmolality Calculated 296 270 - 300 mOsm/kg 09/29/2021 1:07 PM [facility] eGFR by CKD-EPI 46(L) >=90 mL/min/1.7 3 m2 09/29/2021 1:07 PM [facility] Blood BLOOD SPECIMEN / Unknown Venipuncture / Unknown 09/29/2021 12:36 PM CDT 09/29/2021 12:43 PM CDT Dar Kilpatrick MD LAB - CHEMISTRY OR DERABLES Performing Organization Address [facility] Co de Phone Number [facility] [address] [place] [id number] [phone] * (ABNORMAL) CBC W AUTO DIFFERENTIAL (09/29/2021 12:36 PM CDT) WBC 9.5 3.5 - 10.5 10? 3 /uL 09/29/2021 12:48 PM [facility] RBC 2.30(L) 4.30 - 5.70 10? 6 /uL 09/29/2021 12:48 PM [facility] Hemoglobin 7.2(L) 12.0 - 17.6 g/dL 09/29/2021 12:48 PM [facility] Hematocrit 20.9(L) 35.2 - 51.7 % 09/29/2021 12:48 PM [facility] MCV 90.9 80.7 - 98.3 fL 09/29/2021 12:48 PM [facility] MCH 31.3 26.7 - 34.0 pg 09/29/2021 12:48 PM [facility] MCHC 34.4 30.8 - 35.9 g/dL 09/29/2021 12:48 PM [facility] Platelet Count 106(L) 150 - 400 10? 3 /uL 09/29/2021 12:48 PM [facility] RDW-SD 46.7 36.0 - 50.0 fL 09/29/2021 12:48 PM [facility] RDW-CV 14.2 11.2 - 14.8 % 09/29/2021 12:48 PM [facility] MPV 11.1 9.4 - 12.9 fL 09/29/2021 12:48 PM [facility] nRBC Absolute 0.00 0 10? 3 /uL 09/29/2021 12:48 PM [facility] nRBC Auto 0.0 0 /100 WBC 09/29/2021 12:48 PM [facility] Neutrophils % 80.7(H) 35.0 - 70.0 % 09/29/2021 12:48 PM [facility] Lymphocytes % 9.2(L) 20.0 - 43.0 % 09/29/2021 12:48 PM [facility] Monocytes % 9.0 5.0 - 13.0 % 09/29/2021 12:48 PM [facility] Eosinophils % 0.2 0.0 - 6.0 % 09/29/2021 12:48 PM [facility] Basophil % 0.2 0.0 - 2.0 % 09/29/2021 12:48 PM [facility] Neutrophils Absolute 7.63(H) 1.60 - 7.00 10? 3 /uL 09/29/2021 12:48 PM [facility] Lymphocyte Absolute 0.87(L) 1.10 - 3.90 10? 3 /uL 09/29/2021 12:48 PM [facility] Monocytes Absolute 0.85 0.26 - 1.07 10? 3 /uL 09/29/2021 12:48 PM [facility] Eosinophils Absolute 0.02 0.00 - 0.47 10? 3 /uL 09/29/2021 12:48 PM [facility] Basophils Absolute 0.02 0.00 - 0.08 10? 3 /uL 09/29/2021 12:48 PM CDT [facility] Immature Granulocytes % 0.7 0.0 - 1.0 % 09/29/2021 12:48 PM CDT [facility] [facility] Immature Granulocytes Absolute 0.07 09/29/2021 12:48 PM CDT [facility] Immature Platelet Fraction 5.0 1.1 - 6.2 % 09/29/2021 12:48 PM CDT [facility] Blood BLOOD SPECIMEN / Unknown Venipuncture / Unknown 09/29/2021 12:36 PM CDT 09/29/2021 12:43 PM CDT Darrell Gomez MD LAB - HEMATOLOGY ORD ERABLES [address] [address], [facility] [phone] * (ABNORMAL) GLUCOSE - POINT OF CARE (09/29/2021 12:23 PM CDT) Glucose WB/POC 130(H) 70 - 115 mg/dL 09/29/2021 12:24 PM CDT [facility] Specimen Type Cap Fingerstick 2021 12:24 PM CDT [facility] Blood BLOOD SPECIMEN / Unknown 09/29/2021 12:23 PM CDT 09/29/2021 12:24 PM CDT Dar Kilpatrick MD LAB - POINT OF CAR E ORDERABLES [address] [address], [place] [phone] * (ABNORMAL) GLUCOSE - POINT OF CARE (09/29/2021 8:45 AM CDT) Glucose WB/POC 189(H) 70 - 115 mg/dL 09/29/2021 8:50 AM CDT [facility] Specimen Type Arterial 09/29/2021 8:50 AM CDT [facility] Blood BLOOD SPECIMEN / Unknown 09/29/2021 8:45 AM CDT 09/29/2021 8:50 AM CDT Dar Kilpatrick MD LAB - POINT OF CAR E ORDERABLES [facility] [address] [place] [address], [facility] [phone] * (ABNORMAL) BLOOD GASES ART + COOX PANEL (09/29/2021 6:03 AM CDT) pH Arterial 7.47(H) 7.35 - 7.45 pH 09/29/2021 6:10 AM [facility] pO2 Arterial 133(H) 80 - 100 mmHg 09/29/2021 6:10 AM [facility] pCO2 Arterial 38 35 - 45 mmHg 6:10 AM [facility] HCO3 Arterial 28 20 - 30 mmol/l 09/29/2021 6:10 AM [facility] BE Arterial 3.8(H) -2.0 - 2.0 mmol/L 09/29/2021 6:10 AM [facility] Oxyhemoglobin Arterial 97.1 % 09/29/2021 6:10 AM [facility] Dexoyhemoglobin (HHB) % 1.6 % 09/29/2021 6:10 AM [facility] Methemoglobin <0.8 0.0 - 2.0 % 09/29/2021 6:10 AM [facility] Carboxyhemoglobin 0.8 0.0 - 2.0 % 2021 6:10 AM [facility] O2 Content Arterial 11.6 Interpret within clinical context mg/dL 09/29/2021 6:10 AM [facility] Hemoglobin by COOX 8.3(L) 12.0 - 17.6 g/dL 09/29/2021 6:10 AM [facility] O2 Saturation Arterial 98 90 - 100 % 09/29/2021 6:10 AM [facility] FI O2 Arterial 40.0 % 09/29/2021 6:10 AM [facility] Blood, arterial ARTERIAL BLOOD SPECIMEN / Unknown Arterial Puncture / Unknown 09/29/2021 6:03 AM CDT 09/29/2021 6:06 AM CDT Narrative [facility] - 09/29/2021 6:10 AM CDT Carboxyhemoglobin Normal Concentration: Non-smokers: 0-2%; Smokers: 0-9%; Toxic: >20% Dar Kilpatrick MD LAB - BLOOD GASES ORDERABLES Performing Organization Address [facility] de Phone Number [address] [address], [facility] [phone] * (ABNORMAL) CALCIUM IONIZED WHOLE BLOOD (09/29/2021 6:03 AM CDT) Calcium Ionized 1.19 mmol/L 09/29/2021 6:11 AM T [facility] pH 7.46(H) 7.35 - 7.45 pH 09/29/2021 6:11 AM T [facility] Ionized Calcium pH Adjusted 1.22 1.19 - 1.34 mmol/L 09/29/2021 6:11 AM T [facility] Blood BLOOD SPECIMEN / Unknown Venipuncture / Unknown 09/29/2021 6:03 AM CDT 09/29/2021 6:06 AM CDT Dar Kilpatrick MD LAB - CHEMISTRY OR DERABLES Performing Organization Address [facility] de Phone Number [address] [address], [facility] [phone] * (ABNORMAL) BASIC METABOLIC PANEL (CALCIUM TOTAL) (09/29/2021 6:03 AM CDT) BUN 20 7 - 26 mg/dL 09/29/2021 6:53 AM T [facility] Creatinine 1.97(H) 0.71 - 1.16 mg/dL 09/29/2021 6:53 AM T [facility] Sodium 140 136 - 145 mmol/L 09/29/2021 6:53 AM T [facility] Potassium 3.9 3.5 - 4.5 mmol/L 09/29/2021 6:53 AM [facility] Chloride 107 98 - 107 mmol/L 09/29/2021 6:53 AM [facility] CO2 27 22 - 29 mmol/L 09/29/2021 6:53 AM [facility] Glucose 136(H) 70 - 115 mg/dL 09/29/2021 6:53 AM [facility] Calcium 8.2(L) 8.4 - 10.2 mg/dL 09/29/2021 6:53 AM [facility] Anion Gap 10 8 - 18 09/29/2021 6:53 AM [facility] BUN/Creatinine Ratio 10 7 - 23 09/29/2021 6:53 AM [facility] Osmolality Calculated 295 270 - 300 mOsm/kg 09/29/2021 6:53 AM [facility] eGFR by CKD-EPI 44(L) >=90 mL/min/1.7 3 m2 09/29/2021 6:53 AM [facility] Blood BLOOD SPECIMEN / Unknown Venipuncture / Unknown 09/29/2021 6:03 AM CDT 09/29/2021 6:07 AM T Dar Kilpatrick MD LAB - CHEMISTRY OR DERABLES Performing Organization Address [facility]/State/[facility] Co de Phone Number [facility] [address] [place] [address], [facility] [phone] * (ABNORMAL) CBC W AUTO DIFFERENTIAL (09/29/2021 6:03 AM CDT) WBC 10.4 3.5 - 10.5 10? 3 /uL 09/29/2021 6:18 AM [facility] RBC 2.48(L) 4.30 - 5.70 10? 6 /uL 09/29/2021 6:18 AM [facility] Hemoglobin 7.7(L) 12.0 - 17.6 g/dL 09/29/2021 6:18 AM [facility] Hematocrit 22.5(L) 35.2 - 51.7 % 09/29/2021 6:18 AM [facility] MCV 90.7 80.7 - 98.3 fL 09/29/2021 6:18 AM [facility] MCH 31.0 26.7 - 34.0 pg 09/29/2021 6:18 AM [facility] MCHC 34.2 30.8 - 35.9 g/dL 09/29/2021 6:18 AM [facility] Platelet Count 106(L) 150 - 400 10? 3 /uL 09/29/2021 6:18 AM [facility] RDW-SD 46.5 36.0 - 50.0 fL 09/29/2021 6:18 AM [facility] RDW-CV 14.0 11.2 - 14.8 % 09/29/2021 6:18 AM [facility] MPV 10.6 9.4 - 12.9 fL 09/29/2021 6:18 AM [facility] nRBC Absolute 0.00 0 10? 3 /uL 09/29/2021 6:18 AM [facility] nRBC Auto 0.0 0 /100 WBC 09/29/2021 6:18 AM [facility] Neutrophils % 80.3(H) 35.0 - 70.0 % 09/29/2021 6:18 AM [facility] Lymphocytes % 10.4(L) 20.0 - 43.0 % 09/29/2021 6:18 AM [facility] Monocytes % 8.3 5.0 - 13.0 % 09/29/2021 6:18 AM [facility] Eosinophils % 0.3 0.0 - 6.0 % 09/29/2021 6:18 AM [facility] Basophil % 0.2 0.0 - 2.0 % 09/29/2021 6:18 AM [facility] Neutrophils Absolute 8.32(H) 1.60 - 7.00 10? 3 /uL 09/29/2021 6:18 AM [facility] Lymphocyte Absolute 1.08(L) 1.10 - 3.90 10? 3 /uL 09/29/2021 6:18 AM [facility] Monocytes Absolute 0.86 0.26 - 1.07 10? 3 /uL 09/29/2021 6:18 AM CDT [facility] Eosinophils Absolute 0.03 0.00 - 0.47 10? 3 /uL 09/29/2021 6:18 AM CDT [facility] Basophils Absolute 0.02 0.00 - 0.08 10? 3 /uL 09/29/2021 6:18 AM CDT [facility] Immature Granulocytes % 0.5 0.0 - 1.0 % 09/29/2021 6:18 AM CDT [facility] Immature Granulocytes Absolute 0.05 09/29/2021 6:18 AM CDT [facility] Blood BLOOD SPECIMEN / Unknown Venipuncture / Unknown 09/29/2021 6:03 AM CDT 09/29/2021 6:07 AM CDT Darrell Gomez MD LAB - HEMATOLOGY ORD ERABLES [facility] [address] [place] [address], [facility] [phone] * XR CHEST 1VW PORTABLE (09/29/2021 4:27 [...] dictated by Elmer Gomez MD, PhD (radiology director). I, Dr. MICAELA MCCULLOUGH have personally reviewed [...] dictated by Elmer Gomez MD, PhD (radiology director). I, Dr. MICAELA MCCULLOUGH have personally reviewed and interpreted this examination/study. This report was electronically signed by MICAELA MCCULLOUGH on 1:18 AM . Dar Kilpatrick MD DIAGNOSTIC IMAGING ORDERABLES * (ABNORMAL) GLUCOSE - POINT OF CARE (09/29/2021 3:59 AM CDT) Glucose WB/POC 136(H) 70 - 115 mg/dL 09/29/2021 4:04 AM CDT [facility] Specimen Type Arterial 09/29/2021 4:04 AM CDT [facility] Blood BLOOD SPECIMEN / Unknown 09/29/2021 3:59 AM CDT 09/29/2021 4:04 AM CDT Dar Kilpatrick MD LAB - POINT OF CAR E ORDERABLES [facility] [address] [place] [address], [facility] [phone] * PHOSPHORUS BLOOD (09/29/2021 12:12 AM CDT) Phosphorus 3.6 2.8 - 5.1 mg/dL 09/29/2021 12:49 AM CDT [facility] Blood BLOOD SPECIMEN / Unknown Venipuncture / Unknown 09/29/2021 12:12 AM CDT 09/29/2021 12:18 AM CDT Dar Kilpatrick MD LAB - CHEMISTRY OR DERABLES [facility] [address] [place] [phone], [facility] [phone] * MAGNESIUM BLOOD (09/29/2021 12:12 AM CDT) Magnesium 1.7 1.6 - 2.6 mg/dL 09/29/2021 12:49 AM T [facility] Blood BLOOD SPECIMEN / Unknown Venipuncture / Unknown 09/29/2021 12:12 AM CDT 09/29/2021 12:18 AM CDT Dar Kilpatrick MD LAB - CHEMISTRY OR DERABLES [facility] [address] [place] [address], [facility] [phone] * (ABNORMAL) BLOOD GASES ART + COOX PANEL (09/29/2021 12:12 AM CDT) pH Arterial 7.44 7.35 - 7.45 pH 09/29/2021 12:19 AM CDT [facility] pO2 Arterial 131(H) 80 - 100 mmHg 09/29/2021 12:19 AM CDT [facility] pCO2 Arterial 37 35 - 45 mmHg 12:19 AM T [facility] HCO3 Arterial 25 20 - 30 mmol/l 09/29/2021 12:19 AM T [facility] BE Arterial 1.0 -2.0 - 2.0 mmol/L 09/29/2021 12:19 AM [facility] Oxyhemoglobin Arterial 97.4 % 09/29/2021 12:19 AM [facility] Dexoyhemoglobin (HHB) % 1.4 % 09/29/2021 12:19 AM [facility] Methemoglobin <0.8 0.0 - 2.0 % 09/29/2021 12:19 AM [facility] Carboxyhemoglobin 0.9 0.0 - 2.0 % 2021 12:19 AM [facility] O2 Content Arterial 12.2 Interpret within clinical context mg/dL 09/29/2021 12:19 AM [facility] Hemoglobin by COOX 8.7(L) 12.0 - 17.6 g/dL 09/29/2021 12:19 AM [facility] O2 Saturation Arterial 99 90 - 100 % 09/29/2021 12:19 AM [facility] FI O2 Arterial 40.0 % 09/29/2021 12:19 AM [facility] Blood, arterial ARTERIAL BLOOD SPECIMEN / Unknown Arterial Puncture / Unknown 09/29/2021 12:12 AM [facility] 09/29/2021 12:17 AM [facility] - 09/29/2021 12:19 AM [facility] Carboxyhemoglobin Normal Concentration: Non-smokers: 0-2%; Smokers: 0-9%; Toxic: >20% Dar Kilpatrick MD LAB - BLOOD GASES ORDERABLES Performing Organization Address City/[facility] Co de Phone Number [address] [address], [facility] [phone] * (ABNORMAL) CALCIUM IONIZED WHOLE BLOOD (09/29/2021 12:12 AM [facility]) Calcium Ionized 1.15 mmol/L 09/29/2021 12:21 AM [facility] pH 7.43 7.35 - 7.45 pH 09/29/2021 12:21 AM [facility] Ionized Calcium pH Adjusted 1.16(L) 1.19 - 1.34 mmol/L 09/29/2021 12:21 AM [facility] Blood BLOOD SPECIMEN / Unknown Venipuncture / Unknown 09/29/2021 12:12 AM CDT 09/29/2021 12:17 AM CDT aDr Kilpatrick MD LAB - CHEMISTRY OR DERABLES Performing Organization Address [facility]/ZIP Co de Phone Number [facility] [address] [place] [address], [facility] [phone] * (ABNORMAL) BASIC METABOLIC PANEL (CALCIUM TOTAL) (09/29/2021 12:12 AM CDT) BUN 18 7 - 26 mg/dL 09/29/2021 12:49 AM [facility] Creatinine 2.01(H) 0.71 - 1.16 mg/dL 09/29/2021 12:49 AM [facility] Sodium 141 136 - 145 mmol/L 09/29/2021 12:49 AM [facility] Potassium 4.1 3.5 - 4.5 mmol/L 09/29/2021 12:49 AM [facility] Chloride 109(H) 98 - 107 mmol/L 09/29/2021 12:49 AM [facility] CO2 24 22 - 29 mmol/L 09/29/2021 12:49 AM [facility] Glucose 140(H) 70 - 115 mg/dL 09/29/2021 12:49 AM [facility] Calcium 8.0(L) 8.4 - 10.2 mg/dL 09/29/2021 12:49 AM [facility] Anion Gap 12 8 - 18 09/29/2021 12:49 AM [facility] BUN/Creatinine Ratio 9 7 - 23 09/29/2021 12:49 AM [facility] Osmolality Calculated 296 270 - 300 mOsm/kg 09/29/2021 12:49 AM [facility] eGFR by CKD-EPI 43(L) >=90 mL/min/1.7 3 m2 09/29/2021 12:49 AM [facility] Blood BLOOD SPECIMEN / Unknown Venipuncture / Unknown 09/29/2021 12:12 AM CDT 09/29/2021 12:18 AM CDT Dar Kilpatrick MD LAB - CHEMISTRY OR DERABLES [facility] [address] [place] [address], [facility] [phone] * (ABNORMAL) CBC W AUTO DIFFERENTIAL (09/29/2021 12:12 AM CDT) WBC 11.2(H) 3.5 - 10.5 10? 3 /uL 09/29/2021 12:32 AM T [facility] RBC 2.63(L) 4.30 - 5.70 10? 6 /uL 09/29/2021 12:32 AM [facility] Hemoglobin 8.2(L) 12.0 - 17.6 g/dL 09/29/2021 12:32 AM [facility] Hematocrit 23.9(L) 35.2 - 51.7 % 09/29/2021 12:32 AM [facility] MCV 90.9 80.7 - 98.3 fL 09/29/2021 12:32 AM [facility] MCH 31.2 26.7 - 34.0 pg 09/29/2021 12:32 AM [facility] MCHC 34.3 30.8 - 35.9 g/dL 09/29/2021 12:32 AM [facility] Platelet Count 126(L) 150 - 400 10? 3 /uL 09/29/2021 12:32 AM [facility] RDW-SD 46.6 36.0 - 50.0 fL 09/29/2021 12:32 AM [facility] RDW-CV 14.0 11.2 - 14.8 % 09/29/2021 12:32 AM [facility] MPV 10.7 9.4 - 12.9 fL 09/29/2021 12:32 AM [facility] nRBC Absolute 0.00 0 10? 3 /uL 09/29/2021 12:32 AM [facility] nRBC Auto 0.0 0 /100 WBC 09/29/2021 12:32 AM [facility] Neutrophils % 82.3(H) 35.0 - 70.0 % 09/29/2021 12:32 AM [facility] Lymphocytes % 8.9(L) 20.0 - 43.0 % 09/29/2021 12:32 AM [facility] Monocytes % 8.2 5.0 - 13.0 % 09/29/2021 12:32 AM [facility] Eosinophils % 0.1 0.0 - 6.0 % 09/29/2021 12:32 AM [facility] Basophil % 0.1 0.0 - 2.0 % 09/29/2021 12:32 AM [facility] Neutrophils Absolute 9.20(H) 1.60 - 7.00 10? 3 /uL 09/29/2021 12:32 AM [facility] Lymphocyte Absolute 1.00(L) 1.10 - 3.90 10? 3 /uL 09/29/2021 12:32 AM [facility] Monocytes Absolute 0.92 0.26 - 1.07 10? 3 /uL 09/29/2021 12:32 AM [facility] Eosinophils Absolute 0.01 0.00 - 0.47 10? 3 /uL 09/29/2021 12:32 AM [facility] Basophils Absolute 0.01 0.00 - 0.08 10? 3 /uL 09/29/2021 12:32 AM [facility] Immature Granulocytes % 0.4 0.0 - 1.0 % 09/29/2021 12:32 AM [facility] Immature Granulocytes Absolute 0.05 09/29/2021 12:32 AM [facility] Immature Platelet Fraction 4.5 1.1 - 6.2 % 09/29/2021 12:32 AM [facility] Blood BLOOD SPECIMEN / Unknown Venipuncture / Unknown 09/29/2021 12:12 AM CDT 09/29/2021 12:18 AM T Darrell Gomez MD LAB - HEMATOLOGY ORD ERABLES [facility] [address] [place] [address], [place] [phone] * (ABNORMAL) GLUCOSE - POINT OF CARE (09/29/2021 12:11 AM CDT) Glucose WB/POC 142(H) 70 - 115 mg/dL 09/29/2021 12:12 AM CDT [facility] Specimen Type Arterial 09/29/2021 12:12 AM CDT [facility] Blood BLOOD SPECIMEN / Unknown 09/29/2021 12:11 AM CDT 09/29/2021 12:12 AM CDT Dar Kilpatrick MD LAB - POINT OF CAR E ORDERABLES [facility] [address] [place] [address], [place] [phone] * (ABNORMAL) GLUCOSE - POINT OF CARE (09/28/2021 8:03 PM CDT) Glucose WB/POC 136(H) 70 - 115 mg/dL 09/28/2021 8:05 PM CDT [facility] Specimen Type Cap Fingerstick 2021 8:05 PM CDT [facility] Blood BLOOD SPECIMEN / Unknown 09/28/2021 8:03 PM CDT 09/28/2021 8:05 PM CDT Dar Kilpatrick MD LAB - POINT OF CAR E ORDERABLES [facility] [address] [place] [address], [place] [phone] * (ABNORMAL) BLOOD GASES ART + COOX PANEL (09/28/2021 5:49 PM CDT) pH Arterial 7.39 7.35 - 7.45 pH 09/28/2021 5:58 PM CDT [facility] pO2 Arterial 129(H) 80 - 100 mmHg 09/28/2021 5:58 PM CDT [facility] pCO2 Arterial 34(L) 35 - 45 mmHg 5:58 PM [facility] HCO3 Arterial 21 20 - 30 mmol/l 09/28/2021 5:58 PM [facility] BE Arterial -3.8(L) -2.0 - 2.0 mmol/L 09/28/2021 5:58 PM [facility] Oxyhemoglobin Arterial 98.3 % 09/28/2021 5:58 PM [facility] Dexoyhemoglobin (HHB) % 0.3 % 09/28/2021 5:58 PM [facility] Methemoglobin <0.8 0.0 - 2.0 % 09/28/2021 5:58 PM [facility] Carboxyhemoglobin 1.1 0.0 - 2.0 % 2021 5:58 PM [facility] O2 Content Arterial 13.2 Interpret within clinical context mg/dL 09/28/2021 5:58 PM [facility] Hemoglobin by COOX 9.4(L) 12.0 - 17.6 g/dL 09/28/2021 5:58 PM [facility] O2 Saturation Arterial 100 90 - 100 % 09/28/2021 5:58 PM [facility] FI O2 Arterial 40.0 % 09/28/2021 5:58 PM [facility] Blood, arterial ARTERIAL BLOOD SPECIMEN / Unknown Arterial Puncture / Unknown 09/28/2021 5:49 PM CDT 09/28/2021 5:[address] [facility] - 09/28/2021 5:58 PM CDT Carboxyhemoglobin Normal Concentration: Non-smokers: 0-2%; Smokers: 0-9%; Toxic: >20% Dar Kilpatrick MD LAB - BLOOD GASES ORDERABLES [facility] [address] [place] [address], [facility] [phone] * CALCIUM IONIZED WHOLE BLOOD (09/28/2021 5:49 PM CDT) [facility] Calcium Ionized 1.21 mmol/L 09/28/2021 5:59 PM [facility] pH 7.37 7.35 - 7.45 pH 09/28/2021 5:59 PM [facility] Ionized Calcium pH Adjusted 1.20 1.19 - 1.34 mmol/L 09/28/2021 5:59 PM [facility] Blood BLOOD SPECIMEN / Unknown Venipuncture / Unknown 09/28/2021 5:49 PM CDT 09/28/2021 5:53 PM CDT Dar Kilpatrick MD LAB - CHEMISTRY OR DERABLES [facility] [address] [place] [address], [facility] [phone] * (ABNORMAL) BASIC METABOLIC PANEL (CALCIUM TOTAL) (09/28/2021 5:49 PM CDT) BUN 17 7 - 26 mg/dL 09/28/2021 6:22 PM [facility] Creatinine 1.96(H) 0.71 - 1.16 mg/dL 09/28/2021 6:22 PM [facility] Sodium 141 136 - 145 mmol/L 09/28/2021 6:22 PM [facility] Potassium 4.8(H) 3.5 - 4.5 mmol/L 09/28/2021 6:22 PM [facility] Chloride 113(H) 98 - 107 mmol/L 09/28/2021 6:22 PM [facility] CO2 20(L) 22 - 29 mmol/L 09/28/2021 6:22 PM [facility] Glucose 125(H) 70 - 115 mg/dL 09/28/2021 6:22 PM [facility] Calcium 8.3(L) 8.4 - 10.2 mg/dL 09/28/2021 6:22 PM [facility] Anion Gap 13 8 - 18 09/28/2021 6:22 PM [facility] BUN/Creatinine Ratio 9 7 - 23 09/28/2021 6:22 PM [facility] Osmolality Calculated 295 270 - 300 mOsm/kg 09/28/2021 6:22 PM [facility] eGFR by CKD-EPI 44(L) >=90 mL/min/1.7 3 m2 09/28/2021 6:22 PM [facility] Blood BLOOD SPECIMEN / Unknown Venipuncture / Unknown 09/28/2021 5:49 PM CDT 09/28/2021 5:54 PM CDT Dar Kilpatrick MD LAB - CHEMISTRY OR DERABLES [facility] [address] [place] [address], [facility] [phone] * (ABNORMAL) CBC W AUTO DIFFERENTIAL (09/28/2021 5:49 PM CDT) WBC 12.6(H) 3.5 - 10.5 10? 3 /uL 09/28/2021 5:58 PM [facility] RBC 2.93(L) 4.30 - 5.70 10? 6 /uL 09/28/2021 5:58 PM [facility] Hemoglobin 9.2(L) 12.0 - 17.6 g/dL 09/28/2021 5:58 PM [facility] Hematocrit 26.7(L) 35.2 - 51.7 % 09/28/2021 5:58 PM [facility] MCV 91.1 80.7 - 98.3 fL 09/28/2021 5:58 PM [facility] MCH 31.4 26.7 - 34.0 pg 09/28/2021 5:58 PM [facility] MCHC 34.5 30.8 - 35.9 g/dL 09/28/2021 5:58 PM [facility] Platelet Count 144(L) 150 - 400 10? 3 /uL 09/28/2021 5:58 PM [facility] RDW-SD 47.6 36.0 - 50.0 fL 09/28/2021 5:58 PM [facility] RDW-CV 14.1 11.2 - 14.8 % 09/28/2021 5:58 PM [facility] MPV 10.3 9.4 - 12.9 fL 09/28/2021 5:58 PM [facility] nRBC Absolute 0.00 0 10? 3 /uL 09/28/2021 5:58 PM [facility] nRBC Auto 0.0 0 /100 WBC 09/28/2021 5:58 PM [facility] Neutrophils % 84.9(H) 35.0 - 70.0 % 09/28/2021 5:58 PM [facility] Lymphocytes % 7.3(L) 20.0 - 43.0 % 09/28/2021 5:58 PM [facility] Monocytes % 7.1 5.0 - 13.0 % 09/28/2021 5:58 PM [facility] Eosinophils % 0.0 0.0 - 6.0 % 09/28/2021 5:58 PM [facility] Basophil % 0.1 0.0 - 2.0 % 09/28/2021 5:58 PM [facility] Neutrophils Absolute 10.72(H) 1.60 - 7.00 10? 3 /uL 09/28/2021 5:58 PM [facility] Lymphocyte Absolute 0.92(L) 1.10 - 3.90 10? 3 /uL 09/28/2021 5:58 PM [facility] Monocytes Absolute 0.89 0.26 - 1.07 10? 3 /uL 09/28/2021 5:58 PM [facility] Eosinophils Absolute 0.00 0.00 - 0.47 10? 3 /uL 09/28/2021 5:58 PM [facility] Basophils Absolute 0.01 0.00 - 0.08 10? 3 /uL 09/28/2021 5:58 PM [facility] Immature Granulocytes % 0.6 0.0 - 1.0 % 09/28/2021 5:58 PM [facility] Immature Granulocytes Absolute 0.08 09/28/2021 5:58 PM [facility] Immature Platelet Fraction 4.1 1.1 - 6.2 % 09/28/2021 5:58 PM CDT [facility] Blood BLOOD SPECIMEN / Unknown Venipuncture / Unknown 09/28/2021 5:49 PM CDT 09/28/2021 5:54 PM CDT Darrell Gomez MD LAB - HEMATOLOGY ORD ERABLES [address] [address], [place] [phone] * (ABNORMAL) GLUCOSE - POINT OF CARE (09/28/2021 4:05 PM CDT) Glucose WB/POC 129(H) 70 - 115 mg/dL 09/28/2021 4:10 PM CDT [facility] Specimen Type Arterial 09/28/2021 4:10 PM CDT [facility] Blood BLOOD SPECIMEN / Unknown 09/28/2021 4:05 PM CDT 09/28/2021 4:10 PM CDT Dar Kilpatrick MD LAB - POINT OF CAR E ORDERABLES [address] [address], [place] [phone] * (ABNORMAL) BLOOD GASES ART + COOX PANEL (09/28/2021 11:54 AM CDT) pH Arterial 7.33(L) 7.35 - 7.45 pH 09/28/2021 12:04 PM CDT [facility] pO2 Arterial 141(H) 80 - 100 mmHg 09/28/2021 12:04 PM T [facility] pCO2 Arterial 37 35 - 45 mmHg 12:04 PM T [facility] HCO3 Arterial 20 20 - 30 mmol/l 09/28/2021 12:04 PM CDT [facility] BE Arterial -5.9(L) -2.0 - 2.0 mmol/L 09/28/2021 12:04 PM T [facility] Oxyhemoglobin Arterial 97.5 % 09/28/2021 12:04 PM T [facility] Dexoyhemoglobin (HHB) % 0.7 % 09/28/2021 12:04 PM [facility] Methemoglobin 0.8 0.0 - 2.0 % 09/28/2021 12:04 PM [facility] Carboxyhemoglobin 1.0 0.0 - 2.0 % 2021 12:04 PM [facility] O2 Content Arterial 14.9 Interpret within clinical context mg/dL 09/28/2021 12:04 PM [facility] Hemoglobin by COOX 10.7(L) 12.0 - 17.6 g/dL 09/28/2021 12:04 PM [facility] O2 Saturation Arterial 99 90 - 100 % 09/28/2021 12:04 PM [facility] FI O2 Arterial 40.0 % 09/28/2021 12:04 PM [facility] Blood, arterial ARTERIAL BLOOD SPECIMEN / Unknown Arterial Puncture / Unknown 09/28/2021 11:54 AM T 09/28/2021 12:01 PM [facility] - 09/28/2021 12:04 PM [facility] Carboxyhemoglobin Normal Concentration: Non-smokers: 0-2%; Smokers: 0-9%; Toxic: >20% aDr Kilpatrick MD LAB - BLOOD GASES ORDERABLES Performing Organization Address City/State/[facility] Co de Phone Number [facility] [address] [place] [address], [facility] [phone] * (ABNORMAL) CALCIUM IONIZED WHOLE BLOOD (09/28/2021 11:54 AM CDT) Pathologist [facility] Calcium Ionized 1.22 mmol/L 09/28/2021 12:05 PM [facility] pH 7.33(L) 7.35 - 7.45 pH 09/28/2021 12:05 PM [facility] Ionized Calcium pH Adjusted 1.19 1.19 - 1.34 mmol/L 09/28/2021 12:05 PM [facility] Blood BLOOD SPECIMEN / Unknown Venipuncture / Unknown 09/28/2021 11:54 AM CDT 09/28/2021 12:01 PM CDT Dar Kilpatrick MD LAB - CHEMISTRY OR DERABLES [facility] [address] [place] [address], [facility] [phone] * (ABNORMAL) BASIC METABOLIC PANEL (CALCIUM TOTAL) (09/28/2021 11:54 AM CDT) BUN 15 7 - 26 mg/dL 09/28/2021 1:22 PM [facility] Creatinine 1.78(H) 0.71 - 1.16 mg/dL 09/28/2021 1:22 PM [facility] Sodium 141 136 - 145 mmol/L 09/28/2021 1:22 PM [facility] Potassium 5.1(H) 3.5 - 4.5 mmol/L 09/28/2021 1:22 PM [facility] Chloride 113(H) 98 - 107 mmol/L 09/28/2021 1:22 PM [facility] CO2 19(L) 22 - 29 mmol/L 09/28/2021 1:22 PM [facility] Glucose 123(H) 70 - 115 mg/dL 09/28/2021 1:22 PM [facility] Calcium 8.5 8.4 - 10.2 mg/dL 09/28/2021 1:22 PM [facility] Anion Gap 14 8 - 18 09/28/2021 1:22 PM [facility] BUN/Creatinine Ratio 8 7 - 23 09/28/2021 1:22 PM [facility] Osmolality Calculated 294 270 - 300 mOsm/kg 09/28/2021 1:22 PM [facility] eGFR by CKD-EPI 49(L) >=90 mL/min/1.7 3 m2 09/28/2021 1:22 PM [facility] Blood BLOOD SPECIMEN / Unknown Venipuncture / Unknown 09/28/2021 11:54 AM CDT 09/28/2021 12:24 PM CDT Dar Kilpatrick MD LAB - CHEMISTRY OR DERABLES [facility] [address] [place] [address], [facility] [phone] * (ABNORMAL) CBC W AUTO DIFFERENTIAL (09/28/2021 11:54 AM CDT) WBC 15.2(H) 3.5 - 10.5 10? 3 /uL 09/28/2021 12:35 PM CDT [facility] RBC 3.31(L) 4.30 - 5.70 10? 6 /uL 09/28/2021 12:35 PM [facility] Hemoglobin 10.3(L) 12.0 - 17.6 g/dL 09/28/2021 12:35 PM [facility] Hematocrit 30.5(L) 35.2 - 51.7 % 09/28/2021 12:35 PM [facility] MCV 92.1 80.7 - 98.3 fL 09/28/2021 12:35 PM [facility] MCH 31.1 26.7 - 34.0 pg 09/28/2021 12:35 PM [facility] MCHC 33.8 30.8 - 35.9 g/dL 09/28/2021 12:35 PM [facility] Platelet Count 143(L) 150 - 400 10? 3 /uL 09/28/2021 12:35 PM [facility] RDW-SD 47.8 36.0 - 50.0 fL 09/28/2021 12:35 PM [facility] RDW-CV 14.1 11.2 - 14.8 % 09/28/2021 12:35 PM [facility] MPV 10.5 9.4 - 12.9 fL 09/28/2021 12:35 PM [facility] nRBC Absolute 0.00 0 10? 3 /uL 09/28/2021 12:35 PM [facility] nRBC Auto 0.0 0 /100 WBC 09/28/2021 12:35 PM [facility] Neutrophils % 87.4(H) 35.0 - 70.0 % 09/28/2021 12:35 PM CDT [facility] Lymphocytes % 4.8(L) 20.0 - 43.0 % 09/28/2021 12:35 PM [facility] Monocytes % 7.3 5.0 - 13.0 % 09/28/2021 12:35 PM [facility] Eosinophils % 0.0 0.0 - 6.0 % 09/28/2021 12:35 PM T [facility] Basophil % 0.1 0.0 - 2.0 % 09/28/2021 12:35 PM [facility] Neutrophils Absolute 13.28(H) 1.60 - 7.00 10? 3 /uL 09/28/2021 12:35 PM [facility] Lymphocyte Absolute 0.73(L) 1.10 - 3.90 10? 3 /uL 09/28/2021 12:35 PM T [facility] Monocytes Absolute 1.11(H) 0.26 - 1.07 10? 3 /uL 09/28/2021 12:35 PM [facility] Eosinophils Absolute 0.00 0.00 - 0.47 10? 3 /uL 09/28/2021 12:35 PM T [facility] Basophils Absolute 0.01 0.00 - 0.08 10? 3 /uL 09/28/2021 12:35 PM [facility] Immature Granulocytes % 0.4 0.0 - 1.0 % 09/28/2021 12:35 PM [facility] Immature Granulocytes Absolute 0.06 09/28/2021 12:35 PM [facility] Blood BLOOD SPECIMEN / Unknown Venipuncture / Unknown 09/28/2021 11:54 AM CDT 09/28/2021 12:24 PM CDT Darrell Gomez MD LAB - HEMATOLOGY ORD ERABLES [address] [address], [facility] [phone] * (ABNORMAL) GLUCOSE - POINT OF CARE (09/28/2021 8:21 AM CDT) Glucose WB/POC 137(H) 70 - 115 mg/dL 09/28/2021 8:22 AM [facility] Specimen Type Cap Fingerstick 2021 8:22 AM [facility] Blood BLOOD SPECIMEN / Unknown 09/28/2021 8:21 AM CDT 09/28/2021 8:22 AM CDT Dar Kilpatrick MD LAB - POINT OF CAR E ORDERABLES [facility] [address] [place] [address], [facility] [phone] * (ABNORMAL) CBC W AUTO DIFFERENTIAL (09/28/2021 6:14 AM CDT) WBC 19.6(H) 3.5 - 10.5 10? 3 /uL 09/28/2021 6:29 AM [facility] RBC 3.44(L) 4.30 - 5.70 10? 6 /uL 09/28/2021 6:29 AM [facility] Hemoglobin 10.7(L) 12.0 - 17.6 g/dL 09/28/2021 6:29 AM [facility] Hematocrit 31.8(L) 35.2 - 51.7 % 09/28/2021 6:29 AM [facility] MCV 92.4 80.7 - 98.3 fL 09/28/2021 6:29 AM [facility] MCH 31.1 26.7 - 34.0 pg 09/28/2021 6:29 AM [facility] MCHC 33.6 30.8 - 35.9 g/dL 09/28/2021 6:29 AM [facility] Platelet Count 181 150 - 400 10? 3 /uL 09/28/2021 6:29 AM [facility] RDW-SD 48.0 36.0 - 50.0 fL 09/28/2021 6:29 AM [facility] RDW-CV 14.1 11.2 - 14.8 % 09/28/2021 6:29 AM [facility] MPV 9.9 9.4 - 12.9 fL 09/28/2021 6:29 AM [facility] nRBC Absolute 0.00 0 10? 3 /uL 09/28/2021 6:29 AM [facility] nRBC Auto 0.0 0 /100 WBC 09/28/2021 6:29 AM [facility] Neutrophils % 88.5(H) 35.0 - 70.0 % 09/28/2021 6:29 AM [facility] Lymphocytes % 3.2(L) 20.0 - 43.0 % 09/28/2021 6:29 AM [facility] Monocytes % 7.7 5.0 - 13.0 % 09/28/2021 6:29 AM [facility] Eosinophils % 0.0 0.0 - 6.0 % 09/28/2021 6:29 AM [facility] Basophil % 0.2 0.0 - 2.0 % 09/28/2021 6:29 AM [facility] Neutrophils Absolute 17.37(H) 1.60 - 7.00 10? 3 /uL 09/28/2021 6:29 AM [facility] Lymphocyte Absolute 0.63(L) 1.10 - 3.90 10? 3 /uL 09/28/2021 6:29 AM [facility] Monocytes Absolute 1.51(H) 0.26 - 1.07 10? 3 /uL 09/28/2021 6:29 AM [facility] Eosinophils Absolute 0.00 0.00 - 0.47 10? 3 /uL 09/28/2021 6:29 AM [facility] Basophils Absolute 0.03 0.00 - 0.08 10? 3 /uL 09/28/2021 6:29 AM [facility] Immature Granulocytes % 0.4 0.0 - 1.0 % 09/28/2021 6:29 AM [facility] Immature Granulocytes Absolute 0.08 09/28/2021 6:29 AM [facility] Blood BLOOD SPECIMEN / Unknown Venipuncture / Unknown 09/28/2021 6:14 AM CDT 09/28/2021 6:20 AM CDT Darrell Gomez MD LAB - HEMATOLOGY ORD ERABLES [facility] [address] [place] [id number], [facility] [phone] * XR CHEST 1VW PORTABLE (09/28/2021 4:41 [...] CT. Dictated by Donald Ramos MD (radiology director). Dr. JHON Connor MD have personally reviewed [...] priorCT. Dictated by Donald Ramos MD (radiology director). I, Dr. JHON LEBLANC MD have personally reviewed and interpreted this examination/study. This report was electronically signed by JHON LEBLANC MD on 09/28/2021 2:49 PM . Dar Kilpatrick MD DIAGNOSTIC IMAGING ORDERABLES * (ABNORMAL) GLUCOSE - POINT OF CARE (09/28/2021 3:55 AM CDT) Glucose WB/POC 135(H) 70 - 115 mg/dL 09/28/2021 3:59 AM CDT [facility] Specimen Type Arterial 09/28/2021 3:59 AM CDT [facility] Blood BLOOD SPECIMEN / Unknown 09/28/2021 3:55 AM CDT 09/28/2021 3:59 AM CDT Dar Kilpatrick MD LAB - POINT OF CAR E ORDERABLES Performing Organization Address City/State/[facility] Co de Phone Number [facility] [address] [place] [id number] [phone] * (ABNORMAL) HEMOGLOBIN A1C (09/28/2021 3:55 AM CDT) Hemoglobin A1c 5.9(H) <=5.6 % 09/28/2021 9:03 AM T [facility] Estimated Average Glucose 123 mg/dL 09/28/2021 9:03 AM T [facility] Comment: HbA1c Interpretation: Normal : < 5.7% Pre-diabetes: 5.7-6.4% Diabetes: Equal to or greater than 6.5% Test results diagnostic of diabetes should be repeated for confirmation. Treatment target values recommended by ADA and other clinical organizations should be used to evaluate metabolic control in patients. Reference: [place] [employer], Standards of Care in Diabetes [...] - CHEMISTRY DANIAL DUPREE Performing Organization Address City/[facility]/ZIP Co de Phone Number [facility] [address] [place] [address], [place] [phone] * (ABNORMAL) GLUCOSE - POINT OF CARE (09/28/2021 2:13 AM CDT) Pathologist [facility] Glucose WB/POC 126(H) 70 - 115 mg/dL 09/28/2021 2:18 AM CDT [facility] Specimen Type Arterial 09/28/2021 2:18 AM CDT [facility] Blood BLOOD SPECIMEN / Unknown 09/28/2021 2:13 AM CDT 09/28/2021 2:18 AM CDT Dar Kilpatrick MD LAB - POINT OF CAR E ORDERABLES Performing Organization Address [facility]/ZIP Co de Phone Number [address] [address], [place] [phone] * BLOOD TYPE VERIFICATION (09/28/2021 2:08 AM CDT) Pathologist [facility] ABO Rh O POS 09/28/2021 2:4 6 AM CDT [facility] Blood Bank BLOOD SPECIMEN / Unknown Lab Venipuncture / Unknown 09/28/2021 2:08 AM CDT 09/28/2021 2:18 AM CDT Dar Kilpatrick MD LAB - BLOOD BANK O RDERABLES Performing Organization Address City/[facility]/ZIP Co de Phone Number [facility] [address] [place] [address], [place] [phone] * (ABNORMAL) CBC W AUTO DIFFERENTIAL (09/27/2021 10:55 PM CDT) Pathologist [facility] WBC 14.9(H) 3.5 - 10.5 10? 3 /uL 09/27/2021 11:23 PM CDT [facility] RBC 3.28(L) 4.30 - 5.70 10? 6 /uL 09/27/2021 11:23 PM [facility] Hemoglobin 10.3(L) 12.0 - 17.6 g/dL 09/27/2021 11:23 PM [facility] Hematocrit 30.7(L) 35.2 - 51.7 % 09/27/2021 11:23 PM [facility] MCV 93.6 80.7 - 98.3 fL 09/27/2021 11:23 PM [facility] MCH 31.4 26.7 - 34.0 pg 09/27/2021 11:23 PM [facility] MCHC 33.6 30.8 - 35.9 g/dL 09/27/2021 11:23 PM [facility] Platelet Count 148(L) 150 - 400 10? 3 /uL 09/27/2021 11:23 PM [facility] RDW-SD 47.8 36.0 - 50.0 fL 09/27/2021 11:23 PM [facility] RDW-CV 14.0 11.2 - 14.8 % 09/27/2021 11:23 PM [facility] MPV 9.9 9.4 - 12.9 fL 09/27/2021 11:23 PM [facility] nRBC Absolute 0.00 0 10? 3 /uL 09/27/2021 11:23 PM [facility] nRBC Auto 0.0 0 /100 WBC 09/27/2021 11:23 PM [facility] Neutrophils % 85.0(H) 35.0 - 70.0 % 09/27/2021 11:23 PM [facility] Lymphocytes % 8.3(L) 20.0 - 43.0 % 09/27/2021 11:23 PM [facility] Monocytes % 5.2 5.0 - 13.0 % 09/27/2021 11:23 PM [facility] Eosinophils % 0.5 0.0 - 6.0 % 09/27/2021 11:23 PM [facility] Basophil % 0.3 0.0 - 2.0 % 09/27/2021 11:23 PM CDT [facility] Neutrophils Absolute 12.68(H) 1.60 - 7.00 10? 3 /uL 09/27/2021 11:23 PM CDT [facility] Lymphocyte Absolute 1.24 1.10 - 3.90 10? 3 /uL 09/27/2021 11:23 PM CDT [facility] Monocytes Absolute 0.77 0.26 - 1.07 10? 3 /uL 09/27/2021 11:23 PM T [facility] Eosinophils Absolute 0.07 0.00 - 0.47 10? 3 /uL 09/27/2021 11:23 PM CDT [facility] Basophils Absolute 0.04 0.00 - 0.08 10? 3 /uL 09/27/2021 11:23 PM T [facility] Immature Granulocytes % 0.7 0.0 - 1.0 % 09/27/2021 11:23 PM T [facility] Immature Granulocytes Absolute 0.10 09/27/2021 11:23 PM T [facility] Blood BLOOD SPECIMEN / Unknown Venipuncture / Unknown 09/27/2021 10:55 PM CDT 09/27/2021 11:06 PM CDT Darrell Gomez MD LAB - HEMATOLOGY ORD ERABLES [address] [address], [facility] [phone] * PHOSPHORUS BLOOD (09/27/2021 10:55 PM CDT) Phosphorus 3.9 2.8 - 5.1 mg/dL 09/27/2021 11:36 PM CDT [facility] Blood BLOOD SPECIMEN / Unknown Venipuncture / Unknown 09/27/2021 10:55 PM CDT 09/27/2021 11:05 PM CDT Dar Kilpatrick MD LAB - CHEMISTRY OR DERABLES [address] [address], [facility] [phone] * MAGNESIUM BLOOD (09/27/2021 10:55 PM CDT) Magnesium 1.7 1.6 - 2.6 mg/dL 09/27/2021 11:36 PM [facility] Blood BLOOD SPECIMEN / Unknown Venipuncture / Unknown 09/27/2021 10:55 PM CDT 09/27/2021 11:05 PM CDT Dar Kilpatrick MD LAB - CHEMISTRY OR DERABLES [facility] [address] [place] [address], [facility] [phone] * (ABNORMAL) BASIC METABOLIC PANEL (CALCIUM TOTAL) (09/27/2021 10:55 PM CDT) BUN 12 7 - 26 mg/dL 09/27/2021 11:36 PM [facility] Creatinine 1.56(H) 0.71 - 1.16 mg/dL 09/27/2021 11:36 PM [facility] Sodium 139 136 - 145 mmol/L 09/27/2021 11:36 PM [facility] Potassium 5.0(H) 3.5 - 4.5 mmol/L 09/27/2021 11:36 PM [facility] Chloride 113(H) 98 - 107 mmol/L 09/27/2021 11:36 PM [facility] CO2 21(L) 22 - 29 mmol/L 09/27/2021 11:36 PM [facility] Glucose 112 70 - 115 mg/dL 09/27/2021 11:36 PM [facility] Calcium 8.0(L) 8.4 - 10.2 mg/dL 09/27/2021 11:36 PM [facility] Anion Gap 10 8 - 18 09/27/2021 11:36 PM [facility] BUN/Creatinine Ratio 8 7 - 23 09/27/2021 11:36 PM [facility] Osmolality Calculated 289 270 - 300 mOsm/kg 09/27/2021 11:36 PM [facility] eGFR by CKD-EPI 58(L) >=90 mL/min/1.7 3 m2 09/27/2021 11:36 PM [facility] Blood BLOOD SPECIMEN / Unknown Venipuncture / Unknown 09/27/2021 10:55 PM CDT 09/27/2021 11:05 PM CDT Dar Kilpatrick MD LAB - CHEMISTRY OR DERABLES [facility] [address] [place] [address], [facility] [phone] * (ABNORMAL) BLOOD GASES ART + COOX PANEL (09/27/2021 10:55 PM CDT) pH Arterial 7.28(L) 7.35 - 7.45 pH 09/27/2021 11:13 PM [facility] pO2 Arterial 331(H) 80 - 100 mmHg 09/27/2021 11:13 PM [facility] pCO2 Arterial 44 35 - 45 mmHg 11:13 PM [facility] HCO3 Arterial 21 20 - 30 mmol/l 09/27/2021 11:13 PM [facility] BE Arterial -5.8(L) -2.0 - 2.0 mmol/L 09/27/2021 11:13 PM [facility] Oxyhemoglobin Arterial 96.7 % 09/27/2021 11:13 PM [facility] Dexoyhemoglobin (HHB) % 0.3 % 09/27/2021 11:13 PM [facility] Methemoglobin <0.8 0.0 - 2.0 % 09/27/2021 11:13 PM [facility] Carboxyhemoglobin 2.5(H) 0.0 - 2.0 % 2021 11:13 PM [facility] O2 Content Arterial 15.2 Interpret within clinical context mg/dL 09/27/2021 11:13 PM [facility] Hemoglobin by COOX 10.5(L) 12.0 - 15.6 g/dL 09/27/2021 11:13 PM [facility] O2 Saturation Arterial 100 90 - 100 % 09/27/2021 11:13 PM CDT [facility] FI O2 Arterial 100.0 % 09/27/2021 11:13 PM CDT [facility] Blood, arterial ARTERIAL BLOOD SPECIMEN / Unknown Arterial Puncture / Unknown 09/27/2021 10:55 PM CDT 09/27/2021 11:[address] [facility] - 09/27/2021 11:13 PM CDT Carboxyhemoglobin Normal Concentration: Non-smokers: 0-2%; Smokers: 0-9%; Toxic: >20% Dar Kilpatrick MD LAB - BLOOD GASES ORDERABLES [address] [address], [facility] [phone] * 4 Units (09/27/2021 10:23 PM CDT) Unit Description LR Whole BLood [facility] Unit ABO O [facility] Unit POS [facility] Product Number E0033 [facility] B LOOD [facility] LAB Unit Donor # [id number] [facility] Unit Status transfused [facility] Product Code [id number] [facility] Blood Type Barcode 5100 [facility] Expiration Date S BLOOD BANK LAB Unit Description LR Whole BLood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
--- OUTSIDE RECORDS SUMMARY | 2024-03-26 07:05 | XMS_ITS | Encounter Summary ---
Author Organization [facility] Address [address] [facility] [place] [address] Care Team Providers Care International Freight Forwarder Name Role Phone Hussain Rushing CHILD DAY CARE CENTER WORKER-NAPHTHALENE OPERATOR Unavailable [phone] Encounter Details Date Type Department Care Team (Late st Contact Info) Description 10/06/2021 Orders Only [facility] PHYS SURGERY [address] [place] [phone] Amanda Rinaldi, CHILD DAY CARE CENTER WORKER-NAPHTHALENE OPERATOR [address] [place] [address] Injury of right kidney, subsequent encounter Social [...] Primary documented in this encounter Care Teams International Freight Forwarder Relationship Specialty Start Date End Date Hussain Rushing APRN-TRAMAINE 09/28/21 documented as of this encounter
--- OUTSIDE RECORDS SUMMARY | 2024-03-26 07:05 | XMS_ITS | Encounter Summary ---
Author Organization [facility] Address [address] [facility] [place] [address] Care Team Providers Care Administrative Office Clerk Name Role Phone Hussain Rushing MOLD COOLER-SUPERVISOR SEWING DEPARTMENT Unavailable [phone] Reason for Visit * Auth/Cert Specialty Diagnoses / Procedures Referred By Tavo leos Referred To Contact Referral ID Status Reason Start Date Expiration Date Visits Re quested Visits Authorized [id number] 1 1 Encounter Details Date Type Department Care Team (Late st Contact Info) Description 10/07/2021 12:06 PM CDT Anesthesia Event [facility] [address] [place] [phone] Clau Gifford MD [address] [place] [phone] Eder Hammond DO [address] [facility] [place] [address] Anesthesia Record Procedure Summary Procedure [...] acceptable to the patient and adequate (Dilaudid IMPREGNATING MACHINE OPERATOR) Postop Hydration: requires support (D5+1/2NS w/ 20mEq KCl at 100cc/hr) Postop Nausea: none Assessment: no apparent anesthetic complications, patient tolerated procedure well and no evidence of recall Patient Disposition: Release from Anesthesia Care COMPLICATIONS: No complications documented. Dony Duarte MD PGY-2/CA-1 Anesthesiology & Critical Care [facility] 10/08/2021 7:55 AM * Clau Gifford MD [...] Up Needed COMPLICATIONS: No complications documented. * lCau Gifford MD - 10/07/2021 11:14 AM CDT [...] Patient complained of pain yesterday. Placed on IMPREGNATING MACHINE OPERATOR morphine yesterday, currently at a rate [...] Plan was discussed with the resident and TELEVISION OPERATOR. 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 unknown OB History No obstetric history on file. Covid Vaccine: Lab Results: Recent Labs Base Name 09/30/21 1145 [id number]* SPECIMENTYPE Arterial Recent Labs Component Name [...] Event Date/Time: 10/07/2021 12:10 PM Procedure: intubation ([id number]). Procedure Section: Induction: standard IV Patient Position: [...] 1240 10/03/21 1845 morphine 50 mg/50 mL IMPREGNATING MACHINE OPERATOR -- Dispensed IV IMPREGNATING MACHINE OPERATOR 10/03/21 1835 10/03/21 1347 naloxone (Narcan) injection [...] Event Date/Time: ??10/07/2021 12:10 PM Procedure: intubation ([id number]). Procedure Section: ?? Induction: standard IV Patient [...] mg documented in this encounter Care Teams Administrative Office Clerk Relationship Specialty Start Date End Date Hussain Rushing, LAURA-SUPERVISOR SEWING DEPARTMENT 09/28/21 documented as of this encounter
--- OUTSIDE RECORDS SUMMARY | 2024-03-26 07:05 | XMS_ITS | Encounter Summary ---
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 3:33 AM CDT [facility] Blood BLOOD SPECIMEN / Unknown Lab Venipuncture / Unknown 10/11/2021 2:50 AM CDT 10/11/2021 3:07 AM CDT Carlota Rosario [facility] LAB - CHEMISTRY O RDERABLES Performing Organization Address City/[facility]/ZIP Co de Phone Number [address] [address], [facility] [phone] * MAGNESIUM BLOOD (10/11/2021 2:50 AM CDT) Magnesium 1.9 1.6 - 2.6 mg/dL 10/11/2021 3:33 AM CDT [facility] Blood BLOOD SPECIMEN / Unknown Lab Venipuncture / Unknown 10/11/2021 2:50 AM CDT 10/11/2021 3:07 AM CDT Carlota Rosario CREATIVE DESIGNERVAL[facility] LAB - CHEMISTRY O RDERABLES [address] [address], [facility] [phone] * (ABNORMAL) BASIC METABOLIC PANEL (CALCIUM TOTAL) (10/11/2021 2:50 AM CDT) BUN 18 7 - 26 mg/dL 10/11/2021 3:32 AM [facility] Creatinine 1.10 0.71 - 1.16 mg/dL 10/11/2021 3:32 AM [facility] Sodium 136 136 - 145 mmol/L 10/11/2021 3:32 AM [facility] Potassium 4.2 3.5 - 4.5 mmol/L 10/11/2021 3:32 AM [facility] Chloride 103 98 - 107 mmol/L 10/11/2021 3:32 AM [facility] CO2 21(L) 22 - 29 mmol/L 10/11/2021 3:32 AM [facility] Glucose 134(H) 70 - 115 mg/dL 10/11/2021 3:32 AM [facility] Calcium 8.9 8.4 - 10.2 mg/dL 10/11/2021 3:32 AM [facility] Anion Gap 16 8 - 18 10/11/2021 3:32 AM [facility] BUN/Creatinine Ratio 16 7 - 23 10/11/2021 3:32 AM [facility] Osmolality Calculated 286 270 - 300 mOsm/kg 10/11/2021 3:32 AM [facility] eGFR by CKD-EPI 88(L) >=90 mL/min/1.7 3 m2 10/11/2021 3:32 AM [facility] Blood BLOOD SPECIMEN / Unknown Lab Venipuncture / Unknown 10/11/2021 2:50 AM CDT 10/11/2021 3:07 AM CDT Carlota Rosario CREATIVE DESIGNER-PORTRAIT CONSULTANT LAB - CHEMISTRY O RDERABLES [facility] [address] [place] [address], [facility] [phone] * (ABNORMAL) CBC W/O DIFFERENTIAL (10/11/2021 2:50 AM CDT) WBC 11.8(H) 3.5 - 10.5 10? 3 /uL 10/11/2021 3:18 AM [facility] RBC 2.69(L) 4.30 - 5.70 10? 6 /uL 10/11/2021 3:18 AM [facility] Hemoglobin 7.9(L) 12.0 - 17.6 g/dL 10/11/2021 3:18 AM [facility] Hematocrit 24.0(L) 35.2 - 51.7 % 10/11/2021 3:18 AM [facility] MCV 89.2 80.7 - 98.3 fL 10/11/2021 3:18 AM [facility] MCH 29.4 26.7 - 34.0 pg 10/11/2021 3:18 AM [facility] MCHC 32.9 30.8 - 35.9 g/dL 10/11/2021 3:18 AM [facility] Platelet Count 607(H) 150 - 400 10? 3 /uL 10/11/2021 3:18 AM [facility] RDW-SD 51.9(H) 36.0 - 50.0 fL 10/11/2021 3:18 AM [facility] RDW-CV 16.0(H) 11.2 - 14.8 % 10/11/2021 3:18 AM [facility] MPV 9.7 9.4 - 12.9 fL 10/11/2021 3:18 AM [facility] nRBC Absolute 0.00 0 10? 3 /uL 10/11/2021 3:18 AM [facility] nRBC Auto 0.0 0 /100 WBC 10/11/2021 3:18 AM [facility] Blood BLOOD SPECIMEN / Unknown Lab Venipuncture / Unknown 10/11/2021 2:50 AM CDT 10/11/2021 3:07 AM CDT Carlota Rosario CREATIVE DESIGNER-PORTRAIT CONSULTANT LAB - HEMATOLOGY ORDERABLES [address] [address], [facility] [phone] * (ABNORMAL) BASIC METABOLIC PANEL (CALCIUM TOTAL) (10/09/2021 2:12 AM CDT) BUN 18 7 - 26 mg/dL 10/09/2021 3:12 AM [facility] Creatinine 1.13 0.71 - 1.16 mg/dL 10/09/2021 3:12 AM [facility] Sodium 134(L) 136 - 145 mmol/L 10/09/2021 3:12 AM [facility] Potassium 4.3 3.5 - 4.5 mmol/L 10/09/2021 3:12 AM [facility] Chloride 101 98 - 107 mmol/L 10/09/2021 3:12 AM [facility] CO2 23 22 - 29 mmol/L 10/09/2021 3:12 AM [facility] Glucose 102 70 - 115 mg/dL 10/09/2021 3:12 AM [facility] Calcium 8.6 8.4 - 10.2 mg/dL 10/09/2021 3:12 AM [facility] Anion Gap 14 8 - 18 10/09/2021 3:12 AM [facility] BUN/Creatinine Ratio 16 7 - 23 10/09/2021 3:12 AM [facility] Osmolality Calculated 280 270 - 300 mOsm/kg 10/09/2021 3:12 AM [facility] eGFR by CKD-EPI 85(L) >=90 mL/min/1.7 3 m2 10/09/2021 3:12 AM [facility] Blood BLOOD SPECIMEN / Unknown Lab Venipuncture / Unknown 10/09/2021 2:12 AM CDT 10/09/2021 2:38 AM CDT Carlota Rosario CREATIVE DESIGNER-PORTRAIT CONSULTANT LAB - CHEMISTRY O RDERABLES [facility] [address] [place] [address], [facility] [phone] * (ABNORMAL) CBC W/O DIFFERENTIAL (10/09/2021 2:12 AM CDT) WBC 16.5(H) 3.5 - 10.5 10? 3 /uL 10/09/2021 2:47 AM [facility] RBC 2.69(L) 4.30 - 5.70 10? 6 /uL 10/09/2021 2:47 AM [facility] Hemoglobin 7.9(L) 12.0 - 17.6 g/dL 10/09/2021 2:47 AM [facility] Hematocrit 23.7(L) 35.2 - 51.7 % 10/09/2021 2:47 AM [facility] MCV 88.1 80.7 - 98.3 fL 10/09/2021 2:47 AM [facility] MCH 29.4 26.7 - 34.0 pg 10/09/2021 2:47 AM [facility] MCHC 33.3 30.8 - 35.9 g/dL 10/09/2021 2:47 AM [facility] Platelet Count 453(H) 150 - 400 10? 3 /uL 10/09/2021 2:47 AM [facility] RDW-SD 50.1(H) 36.0 - 50.0 fL 10/09/2021 2:47 AM [facility] RDW-CV 15.8(H) 11.2 - 14.8 % 10/09/2021 2:47 AM [facility] MPV 10.3 9.4 - 12.9 fL 10/09/2021 2:47 AM [facility] nRBC Absolute 0.00 0 10? 3 /uL 10/09/2021 2:47 AM [facility] nRBC Auto 0.0 0 /100 WBC 10/09/2021 2:47 AM [facility] Blood BLOOD SPECIMEN / Unknown Lab Venipuncture / Unknown 10/09/2021 2:12 AM CDT 10/09/2021 2:33 AM CDT Carlota Rosario APRN-PORTRAIT CONSULTANT LAB - HEMATOLOGY ORDERABLES [facility] [address] [place] [address], [facility] [phone] * PREPARE (CROSSMATCH) RBC UNIT(S), 2 Units (10/09/2021 1:17 AM CDT) Unit Description AS1 LR PRBC [facility] BLOOD BANK LAB Unit ABO O [facility] BLOOD [facility] LAB Unit POS [facility]LOOD [facility] LAB Product Number R02 [facility] B LOOD [facility]ANK LAB Unit Donor # [id number] [facility] BLOOD [facility] LAB Unit Status released [facility] BLOO D BANK LAB Product Code [id number] [facility] BLO OD BANK LAB Blood Type Barcode 5100 [facility] BLOOD [facility] LAB Expiration Date S BLOOD BANK LAB Unit Description AS1 LR PRBC [facility] BLOOD [facility]ANK LAB Unit ABO O [facility] BLOOD [facility] LAB Unit POS [facility] BLOOD [facility] LAB Product Number R02 [facility] B LOOD BANK LAB Unit Donor # [id number] [facility] BLOOD [facility]ANK LAB Unit Status released [facility] BLOO D BANK LAB Product Code [id number] [facility] BLO OD BANK LAB Blood Type Barcode 5100 [facility] BLOOD [facility]ANK LAB Expiration Date S BLOOD BANK LAB Blood Bank BLOOD SPECIMEN / Unknown 10/05/2021 10:27 AM CDT Marbin Mejia MD LAB - BLOOD BANK ORDERABLES [facility] BLOOD BANK LAB [address] [place] [address], [facility] [phone] * PREPARE (CROSSMATCH) RBC UNIT(S), 2 Units (10/09/2021 1:17 AM CDT) Unit Description AS1 LR PRBC [facility] BLOOD BANK LAB Unit ABO O [facility] BLOOD BANK LAB Unit POS [facility] BLOOD [facility]ANK LAB Product Number R02 [facility] B LOOD BANK LAB Unit Donor # [id number] [facility] BLOOD BANK LAB Unit Status released [facility] BLOO D BANK LAB Product Code [id number] [facility] BLO OD BANK LAB Blood Type Barcode 5100 [facility] BLOOD [facility] LAB Expiration Date S BLOOD BANK LAB Unit Description AS1 LR PRBC [facility] BLOOD BANK LAB Unit ABO O [facility] BLOOD [facility] LAB Unit POS [facility] BLOOD [facility] LAB Product Number R02 [facility] LOOD [facility]ANK LAB Unit Donor # [id number] [facility] BLOOD BANK LAB Unit Status transfused [facility] BLO OD BANK LAB Product Code [id number] [facility] BLO OD BANK LAB Blood Type Barcode 5100 [facility] BLOOD BANK LAB Expiration Date S BLOOD BANK LAB Blood Bank BLOOD SPECIMEN / Unknown 10/05/2021 10:27 AM CDT Danielle Law MD LAB - BLOOD BANK ORD ERABLES [facility] BLOOD BANK LAB [address] [place] [address], [facility] [phone] * XR CHEST 1VW PORTABLE (10/08/2021 7:40 [...] findings. Report dictated by Erinn Strange MD (presidential helicopter crew chief). I, Dr. AIDEN MCKEON have personally reviewed [...] findings. Report dictated by Erinn Strange MD (presidential helicopter crew chief). I, Dr. AIDEN MCKEON have personally reviewed and interpreted this examination/study. This report was electronically signed by AIDEN MCKEON on 10/08/2021 2:03 PM . Carlota Rosario CREATIVE DESIGNER-PORTRAIT CONSULTANT DIAGNOSTIC IMAGIN G ORDERABLES * PHOSPHORUS BLOOD (10/08/2021 2:04 AM CDT) Phosphorus 3.2 2.8 - 5.1 mg/dL 10/08/2021 2:48 AM CDT [facility] Blood BLOOD SPECIMEN / Unknown Lab Venipuncture / Unknown 10/08/2021 2:04 AM CDT 10/08/2021 2:15 AM CDT Alexis Kay CREATIVE DESIGNER-PORTRAIT CONSULTANT LAB - CHEMISTRY ORDERABLES [address] [address], [facility] [phone] * MAGNESIUM BLOOD (10/08/2021 2:04 AM CDT) Magnesium 1.9 1.6 - 2.6 mg/dL 10/08/2021 2:48 AM [facility] Blood BLOOD SPECIMEN / Unknown Lab Venipuncture / Unknown 10/08/2021 2:04 AM CDT 10/08/2021 2:15 AM CDT Alexis Kay CREATIVE DESIGNER-PORTRAIT CONSULTANT LAB - CHEMISTRY ORDERABLES [facility] [address] [place] [address], [facility] [phone] * (ABNORMAL) BASIC METABOLIC PANEL (CALCIUM TOTAL) (10/08/2021 2:04 AM CDT) BUN 20 7 - 26 mg/dL 10/08/2021 2:48 AM [facility] Creatinine 1.18(H) 0.71 - 1.16 mg/dL 10/08/2021 2:48 AM [facility] Sodium 133(L) 136 - 145 mmol/L 10/08/2021 2:48 AM [facility] Potassium 4.2 3.5 - 4.5 mmol/L 10/08/2021 2:48 AM [facility] Chloride 101 98 - 107 mmol/L 10/08/2021 2:48 AM [facility] CO2 23 22 - 29 mmol/L 10/08/2021 2:48 AM [facility] Glucose 155(H) 70 - 115 mg/dL 10/08/2021 2:48 AM [facility] Calcium 8.3(L) 8.4 - 10.2 mg/dL 10/08/2021 2:48 AM [facility] Anion Gap 13 8 - 18 10/08/2021 2:48 AM [facility] BUN/Creatinine Ratio 17 7 - 23 10/08/2021 2:48 AM [facility] Osmolality Calculated 282 270 - 300 mOsm/kg 10/08/2021 2:48 AM [facility] eGFR by CKD-EPI 81(L) >=90 mL/min/1.7 3 m2 10/08/2021 2:48 AM [facility] Blood BLOOD SPECIMEN / Unknown Lab Venipuncture / Unknown 10/08/2021 2:04 AM CDT 10/08/2021 2:15 AM CDT Alexis Kay CREATIVE DESIGNER-PORTRAIT CONSULTANT LAB - CHEMISTRY ORDERABLES Performing Organization Address [facility]/State/ZIP Co de Phone Number [facility] [address] [place] [address], [facility] [phone] * (ABNORMAL) CBC W AUTO DIFFERENTIAL (10/08/2021 2:04 AM CDT) WBC 18.0(H) 3.5 - 10.5 10? 3 /uL 10/08/2021 2:21 AM [facility] RBC 2.49(L) 4.30 - 5.70 10? 6 /uL 10/08/2021 2:21 AM [facility] Hemoglobin 7.4(L) 12.0 - 17.6 g/dL 10/08/2021 2:21 AM [facility] Hematocrit 22.5(L) 35.2 - 51.7 % 10/08/2021 2:21 AM [facility] MCV 90.4 80.7 - 98.3 fL 10/08/2021 2:21 AM [facility] MCH 29.7 26.7 - 34.0 pg 10/08/2021 2:21 AM [facility] MCHC 32.9 30.8 - 35.9 g/dL 10/08/2021 2:21 AM [facility] Platelet Count 361 150 - 400 10? 3 /uL 10/08/2021 2:21 AM [facility] RDW-SD 53.2(H) 36.0 - 50.0 fL 10/08/2021 2:21 AM [facility] RDW-CV 16.1(H) 11.2 - 14.8 % 10/08/2021 2:21 AM [facility] MPV 9.8 9.4 - 12.9 fL 10/08/2021 2:21 AM [facility] nRBC Absolute 0.02(H) 0 10? 3 /uL 10/08/2021 2:21 AM [facility] nRBC Auto 0.1(H) 0 /100 WBC 10/08/2021 2:21 AM [facility] Neutrophils % 84.1(H) 35.0 - 70.0 % 10/08/2021 2:21 AM [facility] Lymphocytes % 6.5(L) 20.0 - 43.0 % 10/08/2021 2:21 AM [facility] Monocytes % 6.9 5.0 - 13.0 % 10/08/2021 2:21 AM [facility] Eosinophils % 0.7 0.0 - 6.0 % 10/08/2021 2:21 AM [facility] Basophil % 0.2 0.0 - 2.0 % 10/08/2021 2:21 AM [facility] Neutrophils Absolute 15.14(H) 1.60 - 7.00 10? 3 /uL 10/08/2021 2:21 AM [facility] Lymphocyte Absolute 1.16 1.10 - 3.90 10? 3 /uL 10/08/2021 2:21 AM [facility] Monocytes Absolute 1.24(H) 0.26 - 1.07 10? 3 /uL 10/08/2021 2:21 AM [facility] Eosinophils Absolute 0.13 0.00 - 0.47 10? 3 /uL 10/08/2021 2:21 AM [facility] Basophils Absolute 0.03 0.00 - 0.08 10? 3 /uL 10/08/2021 2:21 AM [facility] Immature Granulocytes % 1.6(H) 0.0 - 1.0 % 10/08/2021 2:21 AM [facility] Immature Granulocytes Absolute 0.28 10/08/2021 2:21 AM [facility] Blood BLOOD SPECIMEN / Unknown Lab Venipuncture / Unknown 10/08/2021 2:04 AM T 10/08/2021 2:16 AM [facility] Alexis Kay CREATIVE DESIGNER-PORTRAIT CONSULTANT LAB - HEMATOLOG Y ORDERABLES Performing Organization Address City/State/[facility] Co de Phone Number [address] [address], [facility] [phone] * XR CHEST 1VW PORTABLE (10/07/2021 9:39 [...] findings. Report dictated by Erinn Strange MD (presidential helicopter crew chief). I, Dr. AIDEN MCKEON have personally reviewed [...] findings. Report dictated by Erinn Strange MD (presidential helicopter crew chief). I, Dr. AIDEN MCKEON have personally reviewed and interpreted this examination/study. This report was electronically signed by AIDEN MCKEON on 10/08/2021 2:03 PM . Alexis Kay CREATIVE DESIGNER-PORTRAIT CONSULTANT DIAGNOSTIC IMAG ING ORDERABLES * CT THORACIC [...] normal. Report dictated by Erinn Strange MD (presidential helicopter crew chief). Dr. Sangeeta Connor M.D. have personally reviewed [...] normal. Report dictated by Erinn Strange MD (presidential helicopter crew chief). Dr. Sangeeta Connor M.D. have personally reviewed and interpretedthis examination/study. This report was electronically signed by Sangeeta LOPEZ M.D. on 10/07/2021 5:13 PM . Alexis WHEELER DIAGNOSTIC IMAG ING ORDERABLES * (ABNORMAL) BASIC METABOLIC PANEL (CALCIUM TOTAL) (10/07/2021 2:45 AM CDT) BUN 19 7 - 26 mg/dL 10/07/2021 3:28 AM [facility] Creatinine 1.25(H) 0.71 - 1.16 mg/dL 10/07/2021 3:28 AM [facility] Sodium 134(L) 136 - 145 mmol/L 10/07/2021 3:28 AM [facility] Potassium 4.4 3.5 - 4.5 mmol/L 10/07/2021 3:28 AM [facility] Chloride 102 98 - 107 mmol/L 10/07/2021 3:28 AM [facility] CO2 24 22 - 29 mmol/L 10/07/2021 3:28 AM [facility] Glucose 119(H) 70 - 115 mg/dL 10/07/2021 3:28 AM [facility] Calcium 8.2(L) 8.4 - 10.2 mg/dL 10/07/2021 3:28 AM [facility] Anion Gap 12 8 - 18 10/07/2021 3:28 AM [facility] BUN/Creatinine Ratio 15 7 - 23 10/07/2021 3:28 AM [facility] Osmolality Calculated 281 270 - 300 mOsm/kg 10/07/2021 3:28 AM [facility] eGFR by CKD-EPI 76(L) >=90 mL/min/1.7 3 m2 10/07/2021 3:28 AM [facility] Blood BLOOD SPECIMEN / Unknown Lab Venipuncture / Unknown 10/07/2021 2:45 AM CDT 10/07/2021 3:01 AM CDT Alexis WHEELER LAB - CHEMISTRY ORDERABLES [address] [address], [facility] [phone] * PHOSPHORUS BLOOD (10/07/2021 2:45 AM CDT) Pathologist [facility] Phosphorus 3.6 2.8 - 5.1 mg/dL 10/07/2021 3:28 AM CDT [facility] Blood BLOOD SPECIMEN / Unknown Lab Venipuncture / Unknown 10/07/2021 2:45 AM CDT 10/07/2021 3:01 AM CDT Alexis R Eliza CREATIVE DESIGNER-PORTRAIT CONSULTANT LAB - CHEMISTRY ORDERABLES Performing Organization Address [facility]/ZIP Co de Phone Number [address] [address], [facility] [phone] * MAGNESIUM BLOOD (10/07/2021 2:45 AM CDT) [facility] Magnesium 2.1 1.6 - 2.6 mg/dL 10/07/2021 3:28 AM CDT [facility] Blood BLOOD SPECIMEN / Unknown Lab Venipuncture / Unknown 10/07/2021 2:45 AM CDT 10/07/2021 3:01 AM CDT Alexis R Eliza CREATIVE DESIGNER-PORTRAIT CONSULTANT LAB - CHEMISTRY ORDERABLES Performing Organization Address City/[facility]/ZIP Co de Phone Number [address] [address], [facility] [phone] * (ABNORMAL) CBC W/O DIFFERENTIAL (10/07/2021 2:45 AM CDT) Pathologist [facility] WBC 15.8(H) 3.5 - 10.5 10? 3 /uL 10/07/2021 3:09 AM CDT [facility] RBC 2.65(L) 4.30 - 5.70 10? 6 /uL 10/07/2021 3:09 AM CDT [facility] Hemoglobin 7.8(L) 12.0 - 17.6 g/dL 10/07/2021 3:09 AM [facility] Hematocrit 23.3(L) 35.2 - 51.7 % 10/07/2021 3:09 AM [facility] MCV 87.9 80.7 - 98.3 fL 10/07/2021 3:09 AM [facility] MCH 29.4 26.7 - 34.0 pg 10/07/2021 3:09 AM [facility] MCHC 33.5 30.8 - 35.9 g/dL 10/07/2021 3:09 AM [facility] Platelet Count 327 150 - 400 10? 3 /uL 10/07/2021 3:09 AM [facility] RDW-SD 50.7(H) 36.0 - 50.0 fL 10/07/2021 3:09 AM [facility] RDW-CV 15.8(H) 11.2 - 14.8 % 10/07/2021 3:09 AM [facility] MPV 10.2 9.4 - 12.9 fL 10/07/2021 3:09 AM [facility] nRBC Absolute 0.02(H) 0 10? 3 /uL 10/07/2021 3:09 AM [facility] nRBC Auto 0.1(H) 0 /100 WBC 10/07/2021 3:09 AM [facility] Blood BLOOD SPECIMEN / Unknown Lab Venipuncture / Unknown 10/07/2021 2:45 AM CDT 10/07/2021 3:01 AM CDT Alexis Kay CREATIVE DESIGNER-PORTRAIT CONSULTANT LAB - HEMATOLOG Y ORDERABLES [facility] [address] [place] [address], [facility] [phone] * CT 3D RECON W INDEPENDENT WKSN [...] recommended. Report dictated by Elmer Gomez MD (presidential helicopter crew chief). I, Dr. Bryce Walsh MD have personally [...] recommended. Report dictated by Elmer Gomez MD (presidential helicopter crew chief). I, Dr. Bryce Walsh MD have personally reviewed and interpreted this examination/study. This report was electronically signed by Bryce Walsh MD on10/07/2021 1:50 PM . Dar Kilpatrick MD CT ORDERABLES * [place] OARM SURGERY (10/06/2021 10:31 AM CDT) Narrative [facility] - 10/06/2021 10:32 AM CDT Fluoroscopy was used for this exam in the OR. Please see the Operative report. Marbin Mejia MD FLUOROSCOPY [facility] Performing Organization Address [facility] Co de Phone Number [facility] * [place] MCKENNA SURGERY (10/06/2021 10:31 AM CDT) Narrative [facility] - 10/06/2021 10:31 AM CDT Fluoroscopy was used for this exam in the OR. Please see the Operative report. Marbin Mejia MD [facility] Performing Organization Address [facility] Co de Phone Number [facility] * TRANSFUSE RED BLOOD CELL LEUKOREDUCED UNIT(S) (10/06/2021 10:27 AM CDT) Marbin Mejia MD NURSING - BLOOD PROD TRANSFUSION * (ABNORMAL) BLOOD GAS+COOX+LYTES+METAB ARTERIAL POCT (10/06/2021 10:21 AM CDT) pH Arterial 7.39 7.35 - 7.45 pH 10/06/2021 10:21 AM CDT [facility] pO2 Arterial 169(H) 80 - 100 mmHg 10/06/2021 10:21 AM CDT [facility] pCO2 Arterial 43 35 - 45 mmHg 10:21 AM CDT [facility] HCO3 Arterial 26 20 - 30 mmol/l 10/06/2021 10:21 AM CDT [facility] BE Arterial 0.9 -2.0 - 2.0 mmol/L 10/06/2021 10:21 AM [facility] Oxyhemoglobin Arterial 97.2 % 10/06/2021 10:21 AM [facility] Dexoyhemoglobin (HHB) % 0.3 % 10/06/2021 10:21 AM [facility] Methemoglobin <0.8 0.0 - 2.0 % 10/06/2021 10:21 AM [facility] Carboxyhemoglobin 2.2(H) 0.0 - 2.0 % 2021 10:21 AM [facility] Comment:Carboxyhemoglobin No rmal Concentration: Non-smokers: 0-2%; Smokers: 0- 9%; Toxic: >20% O2 Content Arterial 10.8 Interpret within clinical context mg/dL 10/06/2021 10:21 AM [facility] Hemoglobin by COOX 7.6(L) 12.0 - 17.6 g/dL 10/06/2021 10:21 AM [facility] O2 Saturation Arterial 100 90 - 100 % 10/06/2021 10:21 AM [facility] Sodium Whole Blood 136 135 - 145 mmol/L 10/06/2021 10:21 AM [facility] Potassium Whole Blood 4.8 3.5 - 5.5 mmol/L 10/06/2021 10:21 AM [facility] Chloride WB 105 101 - 111 mmol/L 10/06/2021 10:21 AM [facility] Calcium Ionized 1.15 mmol/L 10:21 AM [facility] Ionized Calcium pH Adjusted 1.15(L) 1.19 - 1.34 mmol/L 10/06/2021 10:21 AM [facility] Anion Gap (AG) Arterial 10 8 - 18 mmol/L 10/06/2021 10:21 AM [facility] Glucose WB 116(H) 70 - 105 mg/dL 10/06/2021 10:21 AM [facility] Lactic Acid Whole Blood 1.0 <=2.0 mmol/L 10/06/2021 10:21 AM [facility] Blood, arterial ARTERIAL BLOOD SPECIMEN / Unknown 10/06/2021 10:21 AM CDT 10/06/2021 10:21 AM CDT Dar Kilpatrick MD LAB - POINT OF CAR E ORDERABLES [facility] [address] [place] [address], [facility] [phone] * (ABNORMAL) BLOOD GAS+COOX+LYTES+METAB ARTERIAL POCT (10/06/2021 9:23 AM [facility]) pH Arterial 7.41 7.35 - 7.45 pH 10/06/2021 9:23 AM [facility] pO2 Arterial 224(H) 80 - 100 mmHg 10/06/2021 9:23 AM [facility] pCO2 Arterial 42 35 - 45 mmHg 9:23 AM [facility] HCO3 Arterial 27 20 - 30 mmol/l 10/06/2021 9:23 AM [facility] BE Arterial 1.8 -2.0 - 2.0 mmol/L 10/06/2021 9:23 AM [facility] Oxyhemoglobin Arterial 96.3 % 10/06/2021 9:23 AM [facility] Dexoyhemoglobin (HHB) % 1.0 % 10/06/2021 9:23 AM [facility] Methemoglobin 1.0 0.0 - 2.0 % 10/06/2021 9:23 AM [facility] Carboxyhemoglobin 1.8 0.0 - 2.0 % 2021 9:23 AM [facility] Comment:Carboxyhemoglobin No rmal Concentration: Non-smokers: 0-2%; Smokers: 0- 9%; Toxic: >20% O2 Content Arterial 12.1 Interpret within clinical context mg/dL 10/06/2021 9:23 AM [facility] Hemoglobin by COOX 8.5(L) 12.0 - 17.6 g/dL 10/06/2021 9:23 AM [facility] O2 Saturation Arterial 99 90 - 100 % 10/06/2021 9:23 AM [facility] Sodium Whole Blood 135 135 - 145 mmol/L 10/06/2021 9:23 AM [facility] Potassium Whole Blood 4.4 3.5 - 5.5 mmol/L 10/06/2021 9:23 AM [facility] Chloride WB 104 101 - 111 mmol/L 10/06/2021 9:23 AM [facility] Calcium Ionized 1.15 mmol/L 9:23 AM [facility] Ionized Calcium pH Adjusted 1.15(L) 1.19 - 1.34 mmol/L 10/06/2021 9:23 AM [facility] Anion Gap (AG) Arterial 9 8 - 18 mmol/L 10/06/2021 9:23 AM [facility] Glucose WB 117(H) 70 - 105 mg/dL 10/06/2021 9:23 AM [facility] Lactic Acid Whole Blood 0.8 <=2.0 mmol/L 10/06/2021 9:23 AM [facility] Blood, arterial ARTERIAL BLOOD SPECIMEN / Unknown 10/06/2021 9:23 AM CDT 10/06/2021 9:23 AM CDT Dar Kilpatrick MD LAB - POINT OF CAR E ORDERABLES [address] [address], [place] [phone] * BLOOD GAS ART+LYTES+METAB+COOX POC NOTIF (10/06/2021 9:18 AM CDT) Comment Notification Label Only - See Separate Report 10/06/2021 10:33 AM T [facility] Other MISCELLANEOUS SAMPLES / Unknown 10/06/2021 9:18 AM CDT 10/06/2021 9:21 AM CDT Nikita Rosa MD LAB - BLOOD GASES ORDERABLES [address] [address], [place] [phone] * (ABNORMAL) BLOOD GAS+COOX+LYTES+METAB ARTERIAL POCT (10/06/2021 8:31 AM [facility]) pH Arterial 7.44 7.35 - 7.45 pH 10/06/2021 8:31 AM [facility] pO2 Arterial 365(H) 80 - 100 mmHg 10/06/2021 8:31 AM [facility] pCO2 Arterial 40 35 - 45 mmHg 8:31 AM [facility] HCO3 Arterial 27 20 - 30 mmol/l 10/06/2021 8:31 AM [facility] BE Arterial 2.8(H) -2.0 - 2.0 mmol/L 10/06/2021 8:31 AM [facility] Oxyhemoglobin Arterial 96.1 % 10/06/2021 8:31 AM [facility] Dexoyhemoglobin (HHB) % 1.4 % 10/06/2021 8:31 AM [facility] Methemoglobin 1.0 0.0 - 2.0 % 10/06/2021 8:31 AM [facility] Carboxyhemoglobin 1.5 0.0 - 2.0 % 2021 8:31 AM [facility] Comment:Carboxyhemoglobin No rmal Concentration: Non-smokers: 0-2%; Smokers: 0- 9%; Toxic: >20% O2 Content Arterial 12.6 Interpret within clinical context mg/dL 10/06/2021 8:31 AM [facility] Hemoglobin by COOX 8.6(L) 12.0 - 17.6 g/dL 10/06/2021 8:31 AM [facility] O2 Saturation Arterial 99 90 - 100 % 10/06/2021 8:31 AM [facility] Sodium Whole Blood 137 135 - 145 mmol/L 10/06/2021 8:31 AM [facility] Potassium Whole Blood 4.2 3.5 - 5.5 mmol/L 10/06/2021 8:31 AM [facility] Chloride WB 103 101 - 111 mmol/L 10/06/2021 8:31 AM [facility] Calcium Ionized 1.21 mmol/L 8:31 AM CDT [facility] Ionized Calcium pH Adjusted 1.23 1.19 - 1.34 mmol/L 10/06/2021 8:31 AM CDT [facility] Anion Gap (AG) Arterial 11 8 - 18 mmol/L 10/06/2021 8:31 AM CDT [facility] Glucose WB 110(H) 70 - 105 mg/dL 10/06/2021 8:31 AM CDT [facility] Lactic Acid Whole Blood 0.7 <=2.0 mmol/L 10/06/2021 8:31 AM CDT [facility] Blood, arterial ARTERIAL BLOOD SPECIMEN / Unknown 10/06/2021 8:31 AM CDT 10/06/2021 8:31 AM CDT Dar Kilpatrick MD LAB - POINT OF CAR E ORDERABLES Performing Organization Address City/[facility]/ZIP Co de Phone Number [address] [address], [facility] [phone] * BLOOD GAS ART+LYTES+METAB+COOX POC NOTIF (10/06/2021 8:27 AM CDT) Comment Notification Label Only - See Separate Report 10/06/2021 9:32 AM CDT [facility] Other MISCELLANEOUS SAMPLES / Unknown 10/06/2021 8:27 AM CDT 10/06/2021 8:28 AM CDT Nikita Rosa MD LAB - BLOOD GASES ORDERABLES [facility] [address] [place] [address], [place] [phone] * XR CHEST 1VW PORTABLE (10/06/2021 5:18 [...] normal. Report dictated by Erinn Strange MD (presidential helicopter crew chief). Dr. DILCIA Connor have personally reviewed and [...] isnormal. Report dictated by Erinn Strange MD (presidential helicopter crew chief). Dr. DILCIA Connor have personally reviewed and interpreted this examination/study. This report was electronically signed by DILCIA CONTRERAS on 10/06/2021 10:29 AM . Diamond Dunlap APRN-PORTRAIT CONSULTANT DIAGNOSTIC IMAGI NG ORDERABLES * PTT [facility] (10/06/2021 1:59 AM CDT) APTT 32.8 23.0 - 38.4 Seconds 10/06/2021 3:47 AM CDT [facility] Comment:Suggested therapeuti c range for full dose I.V. unfractionated heparin therapy for venous thromboembolism is 71 to 109 seconds. Blood BLOOD SPECIMEN / Unknown Lab Venipuncture / Unknown 10/06/2021 1:59 AM CDT 10/06/2021 3:05 AM CDT Dar Kilpatrick MD LAB - COAGULATION ORDERABLES Performing Organization Address [facility] Co de Phone Number [address] [address], [facility] [phone] * (ABNORMAL) CALCIUM IONIZED WHOLE BLOOD (10/05/2021 11:17 PM CDT) Pathologist [facility] Calcium Ionized 1.12 mmol/L 10/05/2021 11:48 PM CDT [facility] pH 7.45 7.35 - 7.45 pH 10/05/2021 11:48 PM T [facility] Ionized Calcium pH Adjusted 1.14(L) 1.19 - 1.34 mmol/L 10/05/2021 11:48 PM CDT [facility] Blood BLOOD SPECIMEN / Unknown Lab Venipuncture / Unknown 10/05/2021 11:17 PM CDT 10/05/2021 11:42 PM CDT Dar Kilpatrick MD LAB - CHEMISTRY OR DERABLES Performing Organization Address [facility] Co de Phone Number [address] [address], [facility] [phone] * (ABNORMAL) CBC W/O DIFFERENTIAL (10/05/2021 11:17 PM CDT) WBC 12.1(H) 3.5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 Report dictated by Elmer Gomez MD, PhD (presidential helicopter crew chief). I, Dr. CHIP HUNT M.D. have personally [...] Report dictated by Elmer Gomez MD, PhD (presidential helicopter crew chief). I, Dr. CHIP HUNT M.D. have personally reviewed andinterpreted this examination/study. This report was electronically signed by CHIP HUNT M.D. on 10/01/2021 3:31 PM . Dar Kilpatrick MD DIAGNOSTIC IMAGING ORDERABLES * PHOSPHORUS BLOOD (09/30/2021 11:35 PM CDT) Phosphorus 3.0 2.8 - 5.1 mg/dL 10/01/2021 12:10 AM CDT [facility] Blood BLOOD SPECIMEN / Unknown Venipuncture / Unknown 09/30/2021 11:35 PM CDT 09/30/2021 11:44 PM CDT Dar Kilpatrick MD LAB - CHEMISTRY OR DERABLES Performing Organization Address [facility]/ZIP Co de Phone Number [address] [address], [facility] [phone] * MAGNESIUM BLOOD (09/30/2021 11:35 PM CDT) Magnesium 2.1 1.6 - 2.6 mg/dL 10/01/2021 12:10 AM CDT [facility] Blood BLOOD SPECIMEN / Unknown Venipuncture / Unknown 09/30/2021 11:35 PM CDT 09/30/2021 11:44 PM CDT Dar Kilpatrick MD LAB - CHEMISTRY OR DERABLES [address] [address], [facility] [phone] * (ABNORMAL) BLOOD GASES ART + COOX PANEL (09/30/2021 11:35 PM CDT) pH Arterial 7.51(H) 7.35 - 7.45 pH 09/30/2021 11:59 PM CDT [facility] pO2 Arterial 152(H) 80 - 100 mmHg 09/30/2021 11:59 PM CDT [facility] pCO2 Arterial 45 35 - 45 mmHg 11:59 PM [facility] HCO3 Arterial 36(H) 20 - 30 mmol/l 09/30/2021 11:59 PM [facility] BE Arterial 11.7(H) -2.0 - 2.0 mmol/L 09/30/2021 11:59 PM [facility] Oxyhemoglobin Arterial 97.1 % 09/30/2021 11:59 PM [facility] Dexoyhemoglobin (HHB) % 0.5 % 09/30/2021 11:59 PM [facility] Methemoglobin <0.8 0.0 - 2.0 % 09/30/2021 11:59 PM [facility] Carboxyhemoglobin 1.7 0.0 - 2.0 % 2021 11:59 PM [facility] O2 Content Arterial 11.0 Interpret within clinical context mg/dL 09/30/2021 11:59 PM [facility] Hemoglobin by COOX 7.8(L) 12.0 - 17.6 g/dL 09/30/2021 11:59 PM [facility] O2 Saturation Arterial 100 90 - 100 % 09/30/2021 11:59 PM [facility] FI O2 Arterial 40.0 % 09/30/2021 11:59 PM [facility] Blood, arterial ARTERIAL BLOOD SPECIMEN / Unknown Arterial Puncture / Unknown 09/30/2021 11:35 PM CDT 09/30/2021 11:53 PM [facility] - 09/30/2021 11:59 PM [facility] Carboxyhemoglobin Normal Concentration: Non-smokers: 0-2%; Smokers: 0-9%; Toxic: >20% Dar Kilpatrick MD LAB - BLOOD GASES ORDERABLES [facility] [address] [place] [phone], [facility] [phone] * (ABNORMAL) BASIC METABOLIC PANEL (CALCIUM TOTAL) (09/30/2021 11:35 PM CDT) BUN 15 7 - 26 mg/dL 10/01/2021 12:10 AM [facility] Creatinine 1.54(H) 0.71 - 1.16 mg/dL 10/01/2021 12:10 AM [facility] Sodium 139 136 - 145 mmol/L 10/01/2021 12:10 AM [facility] Potassium 3.6 3.5 - 4.5 mmol/L 10/01/2021 12:10 AM [facility] Chloride 98 98 - 107 mmol/L 10/01/2021 12:10 AM [facility] CO2 32(H) 22 - 29 mmol/L 10/01/2021 12:10 AM [facility] Glucose 120(H) 70 - 115 mg/dL 10/01/2021 12:10 AM [facility] Calcium 8.1(L) 8.4 - 10.2 mg/dL 10/01/2021 12:10 AM [facility] Anion Gap 13 8 - 18 10/01/2021 12:10 AM [facility] BUN/Creatinine Ratio 10 7 - 23 10/01/2021 12:10 AM [facility] Osmolality Calculated 290 270 - 300 mOsm/kg 10/01/2021 12:10 AM [facility] eGFR by CKD-EPI 59(L) >=90 mL/min/1.7 3 m2 10/01/2021 12:10 AM [facility] Blood BLOOD SPECIMEN / Unknown Venipuncture / Unknown 09/30/2021 11:35 PM CDT 09/30/2021 11:44 PM T Dar Kilpatrick MD LAB - CHEMISTRY OR DERABLES [facility] [address] [place] [phone], [facility] [phone] * (ABNORMAL) CBC W/O DIFFERENTIAL (09/30/2021 11:28 PM CDT) WBC 8.8 3.5 - 10.5 10? 3 /uL 10/01/2021 12:01 AM [facility] RBC 2.64(L) 4.30 - 5.70 10? 6 /uL 10/01/2021 12:01 AM [facility] Hemoglobin 7.8(L) 12.0 - 17.6 g/dL 10/01/2021 12:01 AM [facility] Hematocrit 22.9(L) 35.2 - 51.7 % 10/01/2021 12:01 AM [facility] MCV 86.7 80.7 - 98.3 fL 10/01/2021 12:01 AM [facility] MCH 29.5 26.7 - 34.0 pg 10/01/2021 12:01 AM [facility] MCHC 34.1 30.8 - 35.9 g/dL 10/01/2021 12:01 AM [facility] Platelet Count 102(L) 150 - 400 10? 3 /uL 10/01/2021 12:01 AM [facility] RDW-SD 54.4(H) 36.0 - 50.0 fL 10/01/2021 12:01 AM [facility] RDW-CV 17.2(H) 11.2 - 14.8 % 10/01/2021 12:01 AM [facility] MPV 11.0 9.4 - 12.9 fL 10/01/2021 12:01 AM [facility] nRBC Absolute 0.02(H) 0 10? 3 /uL 10/01/2021 12:01 AM [facility] nRBC Auto 0.2(H) 0 /100 WBC 10/01/2021 12:01 AM [facility] Blood BLOOD SPECIMEN / Unknown Venipuncture / Unknown 09/30/2021 11:28 PM CDT 09/30/2021 11:44 PM CDT Dar Kilpatrick MD LAB - HEMATOLOGY O RDERABLES [facility] [address] [place] [address], [facility] [phone] * (ABNORMAL) CALCIUM IONIZED WHOLE BLOOD (09/30/2021 11:28 PM CDT) Calcium Ionized 1.11 mmol/L 09/30/2021 11:53 PM CDT [facility] pH 7.49(H) 7.35 - 7.45 pH 09/30/2021 11:53 PM T [facility] Ionized Calcium pH Adjusted 1.15(L) 1.19 - 1.34 mmol/L 09/30/2021 11:53 PM T [facility] Blood BLOOD SPECIMEN / Unknown Venipuncture / Unknown 09/30/2021 11:28 PM CDT 09/30/2021 11:40 PM CDT Dar Kilpatrick MD LAB - CHEMISTRY OR DERABLES Performing Organization Address City/State/[facility] Co de Phone Number [facility] [address] [place] [address], [facility] [phone] * (ABNORMAL) BASIC METABOLIC PANEL (CALCIUM TOTAL) (09/30/2021 6:50 PM CDT) [facility] BUN 13 7 - 26 mg/dL 09/30/2021 7:28 PM [facility] Creatinine 1.58(H) 0.71 - 1.16 mg/dL 09/30/2021 7:28 PM [facility] Sodium 139 136 - 145 mmol/L 09/30/2021 7:28 PM [facility] Potassium 3.7 3.5 - 4.5 mmol/L 09/30/2021 7:28 PM [facility] Chloride 97(L) 98 - 107 mmol/L 09/30/2021 7:28 PM [facility] CO2 30(H) 22 - 29 mmol/L 09/30/2021 7:28 PM [facility] Glucose 107 70 - 115 mg/dL 09/30/2021 7:28 PM [facility] Calcium 7.8(L) 8.4 - 10.2 mg/dL 09/30/2021 7:28 PM [facility] Anion Gap 16 8 - 18 09/30/2021 7:28 PM [facility] BUN/Creatinine Ratio 8 7 - 23 09/30/2021 7:28 PM [facility] Osmolality Calculated 289 270 - 300 mOsm/kg 09/30/2021 7:28 PM [facility] [facility] eGFR by CKD-EPI 57(L) >=90 mL/min/1.7 3 m2 09/30/2021 7:28 PM [facility] Blood BLOOD SPECIMEN / Unknown Venipuncture / Unknown 09/30/2021 6:50 PM CDT 09/30/2021 7:03 PM CDT Dar Kilpatrick MD LAB - CHEMISTRY OR DERABLES [facility] [address] [place] [address], [facility] [phone] * (ABNORMAL) BLOOD GASES ART + COOX PANEL (09/30/2021 6:50 PM CDT) pH Arterial 7.47(H) 7.35 - 7.45 pH 09/30/2021 7:09 PM [facility] pO2 Arterial 73(L) 80 - 100 mmHg 09/30/2021 7:09 PM [facility] pCO2 Arterial 48(H) 35 - 45 mmHg 7:09 PM [facility] HCO3 Arterial 35(H) 20 - 30 mmol/l 09/30/2021 7:09 PM [facility] BE Arterial 10.1(H) -2.0 - 2.0 mmol/L 09/30/2021 7:09 PM [facility] Oxyhemoglobin Arterial 94.4 % 09/30/2021 7:09 PM [facility] Dexoyhemoglobin (HHB) % 2.6 % 09/30/2021 7:09 PM [facility] Methemoglobin 0.9 0.0 - 2.0 % 09/30/2021 7:09 PM [facility] Carboxyhemoglobin 2.0 0.0 - 2.0 % 2021 7:09 PM [facility] O2 Content Arterial 11.0 Interpret within clinical context mg/dL 09/30/2021 7:09 PM CDT [facility] Hemoglobin by COOX 8.2(L) 12.0 - 17.6 g/dL 09/30/2021 7:09 PM CDT [facility] O2 Saturation Arterial 97 90 - 100 % 09/30/2021 7:09 PM CDT [facility] FI O2 Arterial 40.0 % 09/30/2021 7:09 PM CDT [facility] Blood, arterial ARTERIAL BLOOD SPECIMEN / Unknown Arterial Puncture / Unknown 09/30/2021 6:50 PM CDT 09/30/2021 7:02 PM CDT Narrative [facility] - 09/30/2021 7:09 PM CDT Carboxyhemoglobin Normal Concentration: Non-smokers: 0-2%; Smokers: 0-9%; Toxic: >20% Dar Kilpatrick MD LAB - BLOOD GASES ORDERABLES Performing Organization Address City/[facility]/ZIP Co de Phone Number [address] [address], [facility] [phone] * PHOSPHORUS BLOOD (09/30/2021 6:50 PM CDT) Phosphorus 2.9 2.8 - 5.1 mg/dL 09/30/2021 7:28 PM CDT [facility] Blood BLOOD SPECIMEN / Unknown Venipuncture / Unknown 09/30/2021 6:50 PM CDT 09/30/2021 7:03 PM CDT Dar Kilpatrick MD LAB - CHEMISTRY OR DERABLES [address] [address], [facility] [phone] * MAGNESIUM BLOOD (09/30/2021 6:50 PM CDT) Magnesium 2.1 1.6 - 2.6 mg/dL 09/30/2021 7:28 PM CDT [facility] Blood BLOOD SPECIMEN / Unknown Venipuncture / Unknown 09/30/2021 6:50 PM CDT 09/30/2021 7:03 PM CDT Dar Kilpatrick MD LAB - CHEMISTRY OR DERABLES [facility] [address] [place] [address], [facility] [phone] * (ABNORMAL) CBC W/O DIFFERENTIAL (09/30/2021 6:50 PM CDT) WBC 7.5 3.5 - 10.5 10? 3 /uL 09/30/2021 7:40 PM CDT [facility] RBC 2.75(L) 4.30 - 5.70 10? 6 /uL 09/30/2021 7:40 PM T [facility] Hemoglobin 8.3(L) 12.0 - 17.6 g/dL 09/30/2021 7:40 PM [facility] Hematocrit 23.8(L) 35.2 - 51.7 % 09/30/2021 7:40 PM T [facility] MCV 86.5 80.7 - 98.3 fL 09/30/2021 7:40 PM CDT [facility] MCH 30.2 26.7 - 34.0 pg 09/30/2021 7:40 PM T [facility] MCHC 34.9 30.8 - 35.9 g/dL 09/30/2021 7:40 PM [facility] Platelet Count 86(L) 150 - 400 10? 3 /uL 09/30/2021 7:40 PM T [facility] RDW-SD 53.7(H) 36.0 - 50.0 fL 09/30/2021 7:40 PM [facility] RDW-CV 17.0(H) 11.2 - 14.8 % 09/30/2021 7:40 PM T [facility] MPV 10.4 9.4 - 12.9 fL 09/30/2021 7:40 PM T [facility] nRBC Absolute 0.00 0 10? 3 /uL 09/30/2021 7:40 PM T [facility] nRBC Auto 0.0 0 /100 WBC 09/30/2021 7:40 PM CDT [facility] Blood BLOOD SPECIMEN / Unknown Venipuncture / Unknown 09/30/2021 6:50 PM CDT 09/30/2021 7:03 PM CDT Dar Kilpatrick MD LAB - HEMATOLOGY O RDERABLES Performing Organization Address [facility] Co de Phone Number [address] [address], [facility] [phone] * (ABNORMAL) CALCIUM IONIZED WHOLE BLOOD (09/30/2021 6:50 PM CDT) Calcium Ionized 1.10 mmol/L 09/30/2021 7:04 PM CDT [facility] pH 7.48(H) 7.35 - 7.45 pH 09/30/2021 7:04 PM CDT [facility] Ionized Calcium pH Adjusted 1.14(L) 1.19 - 1.34 mmol/L 09/30/2021 7:04 PM CDT [facility] Blood BLOOD SPECIMEN / Unknown Venipuncture / Unknown 09/30/2021 6:50 PM CDT 09/30/2021 7:02 PM CDT Dar Kilpatrick MD LAB - CHEMISTRY OR DERABLES Performing Organization Address [facility] Co de Phone Number [address] [address], [facility] [phone] * CT ABDOMEN PELVIS W CONTRAST (09/30/2021 [...] CDT) Dar Kilpatrick MD NURSING - BLOOD OR OD TRANSFUSION * TRANSFUSE RED BLOOD CELL LEUKOREDUCED UNIT(S), 1 Units (09/30/2021 5:21 PM CDT) Dar Kilpatrick MD NURSING - BLOOD OR OD TRANSFUSION * PREPARE (CROSSMATCH) RBC UNIT(S), 1 Units (09/30/2021 1:01 PM CDT) Unit Description AS1 LR PRBC [facility] BLOOD [facility]ANK LAB Unit ABO O [facility] BLO[facility] B[facility] LAB Unit Rh POS [facility] BLOOD [facility] LAB Product Number R02 [facility] B LOOD BANK LAB Unit Donor # [id number] [facility] BLOOD [facility] LAB Unit Status transfused [facility] BLO OD BANK LAB Product Code [id number] [facility] BLO OD BANK LAB Blood Type Barcode 5100 [facility] BLOOD [facility] LAB Expiration Date S BLOOD BANK LAB Blood Bank BLOOD SPECIMEN / Unknown 09/27/2021 9:39 PM CDT Dar Kilpatrick MD LAB - BLOOD BANK O RDERABLES [facility] BLOOD [facility] LAB [address] [place] [address], [facility] [phone] * (ABNORMAL) BLOOD GASES ART + COOX PANEL (09/30/2021 11:48 AM CDT) pH Arterial 7.45 7.35 - 7.45 pH 09/30/2021 12:00 PM [facility] pO2 Arterial 86 80 - 100 mmHg 09/30/2021 12:00 PM [facility] pCO2 Arterial 53(H) 35 - 45 mmHg 12:00 PM [facility] HCO3 Arterial 37(H) 20 - 30 mmol/l 09/30/2021 12:00 PM [facility] BE Arterial 11.0(H) -2.0 - 2.0 mmol/L 09/30/2021 12:00 PM [facility] Oxyhemoglobin Arterial 94.9 % 09/30/2021 12:00 PM [facility] Dexoyhemoglobin (HHB) % 2.3 % 09/30/2021 12:00 PM [facility] Methemoglobin 0.9 0.0 - 2.0 % 09/30/2021 12:00 PM [facility] Carboxyhemoglobin 1.8 0.0 - 2.0 % 2021 12:00 PM [facility] O2 Content Arterial 16.0 Interpret within clinical context mg/dL 09/30/2021 12:00 PM CDT [facility] Hemoglobin by COOX 11.9(L) 12.0 - 17.6 g/dL 09/30/2021 12:00 PM T [facility] O2 Saturation Arterial 98 90 - 100 % 09/30/2021 12:00 PM T [facility] FI O2 Arterial 40.0 % 09/30/2021 12:00 PM T [facility] Blood, arterial ARTERIAL BLOOD SPECIMEN / Unknown Arterial Puncture / Unknown 09/30/2021 11:48 AM CDT 09/30/2021 11:52 AM CDT Narrative [facility] - 09/30/2021 12:00 PM CDT Carboxyhemoglobin Normal Concentration: Non-smokers: 0-2%; Smokers: 0-9%; Toxic: >20% Dar Kilpatrick MD LAB - BLOOD GASES ORDERABLES Performing Organization Address City/[facility]/ZIP Co de Phone Number [address] [address], [facility] [phone] * (ABNORMAL) CALCIUM IONIZED WHOLE BLOOD (09/30/2021 11:48 AM CDT) Calcium Ionized 1.09 mmol/L 09/30/2021 11:59 AM T [facility] pH 7.48(H) 7.35 - 7.45 pH 09/30/2021 11:59 AM [facility] Ionized Calcium pH Adjusted 1.13(L) 1.19 - 1.34 mmol/L 09/30/2021 11:59 AM T [facility] Blood BLOOD SPECIMEN / Unknown Venipuncture / Unknown 09/30/2021 11:48 AM CDT 09/30/2021 11:52 AM CDT Dar Kilpatrick MD LAB - CHEMISTRY OR DERABLES [address] [address], [facility] [phone] * (ABNORMAL) BASIC METABOLIC PANEL (CALCIUM TOTAL) (09/30/2021 11:48 AM CDT) Pathologist [facility] BUN 14 7 - 26 mg/dL 09/30/2021 12:24 PM [facility] Creatinine 1.55(H) 0.71 - 1.16 mg/dL 09/30/2021 12:24 PM [facility] Sodium 138 136 - 145 mmol/L 09/30/2021 12:24 PM [facility] Potassium 3.4(L) 3.5 - 4.5 mmol/L 09/30/2021 12:24 PM [facility] Chloride 97(L) 98 - 107 mmol/L 09/30/2021 12:24 PM [facility] CO2 34(H) 22 - 29 mmol/L 09/30/2021 12:24 PM [facility] Glucose 128(H) 70 - 115 mg/dL 09/30/2021 12:24 PM [facility] Calcium 8.1(L) 8.4 - 10.2 mg/dL 09/30/2021 12:24 PM [facility] Anion Gap 10 8 - 18 09/30/2021 12:24 PM [facility] BUN/Creatinine Ratio 9 7 - 23 09/30/2021 12:24 PM [facility] Osmolality Calculated 288 270 - 300 mOsm/kg 09/30/2021 12:24 PM [facility] eGFR by CKD-EPI 58(L) >=90 mL/min/1.7 3 m2 09/30/2021 12:24 PM [facility] Blood BLOOD SPECIMEN / Unknown Venipuncture / Unknown 09/30/2021 11:48 AM CDT 09/30/2021 11:53 AM CDT Dar Kilpatrick MD LAB - CHEMISTRY OR DERABLES [address] [address], [facility] [phone] * (ABNORMAL) CBC W AUTO DIFFERENTIAL (09/30/2021 11:48 AM CDT) [facility] WBC 7.9 3.5 - 10.5 10? 3 /uL 09/30/2021 12:17 PM [facility] RBC 2.28(L) 4.30 - 5.70 10? 6 /uL 09/30/2021 12:17 PM [facility] Hemoglobin 6.9(L) 12.0 - 17.6 g/dL 09/30/2021 12:17 PM [facility] Hematocrit 20.5(L) 35.2 - 51.7 % 09/30/2021 12:17 PM [facility] MCV 89.9 80.7 - 98.3 fL 09/30/2021 12:17 PM [facility] MCH 30.3 26.7 - 34.0 pg 09/30/2021 12:17 PM [facility] MCHC 33.7 30.8 - 35.9 g/dL 09/30/2021 12:17 PM [facility] Platelet Count 104(L) 150 - 400 10? 3 /uL 09/30/2021 12:17 PM [facility] RDW-SD 47.8 36.0 - 50.0 fL 09/30/2021 12:17 PM [facility] RDW-CV 14.6 11.2 - 14.8 % 09/30/2021 12:17 PM [facility] MPV 10.8 9.4 - 12.9 fL 09/30/2021 12:17 PM [facility] nRBC Absolute 0.02(H) 0 10? 3 /uL 09/30/2021 12:17 PM [facility] nRBC Auto 0.3(H) 0 /100 WBC 09/30/2021 12:17 PM [facility] Neutrophils % 83.4(H) 35.0 - 70.0 % 09/30/2021 12:17 PM [facility] Lymphocytes % 8.8(L) 20.0 - 43.0 % 09/30/2021 12:17 PM [facility] Monocytes % 6.5 5.0 - 13.0 % 09/30/2021 12:17 PM [facility] Eosinophils % 0.6 0.0 - 6.0 % 09/30/2021 12:17 PM [facility] Basophil % 0.1 0.0 - 2.0 % 09/30/2021 12:17 PM [facility] Neutrophils Absolute 6.54 1.60 - 7.00 10? 3 /uL 09/30/2021 12:17 PM [facility] Lymphocyte Absolute 0.69(L) 1.10 - 3.90 10? 3 /uL 09/30/2021 12:17 PM [facility] Monocytes Absolute 0.51 0.26 - 1.07 10? 3 /uL 09/30/2021 12:17 PM [facility] Eosinophils Absolute 0.05 0.00 - 0.47 10? 3 /uL 09/30/2021 12:17 PM [facility] Basophils Absolute 0.01 0.00 - 0.08 10? 3 /uL 09/30/2021 12:17 PM [facility] Immature Granulocytes % 0.6 0.0 - 1.0 % 09/30/2021 12:17 PM [facility] Immature Granulocytes Absolute 0.05 09/30/2021 12:17 PM [facility] Immature Platelet Fraction 4.1 1.1 - 6.2 % 09/30/2021 12:17 PM [facility] Blood BLOOD SPECIMEN / Unknown Venipuncture / Unknown 09/30/2021 11:48 AM CDT 09/30/2021 11:53 AM CDT Darrell Gomez MD LAB - HEMATOLOGY ORD ERABLES Performing Organization Address City/State/[facility] Co de Phone Number [address] [address], [facility] [phone] * (ABNORMAL) GLUCOSE - POINT OF CARE (09/30/2021 11:45 AM CDT) Glucose WB/POC 147(H) 70 - 115 mg/dL 09/30/2021 11:50 AM CDT [facility] Specimen Type Arterial 09/30/2021 11:50 AM [facility] Blood BLOOD SPECIMEN / Unknown 09/30/2021 11:45 AM CDT 09/30/2021 11:50 AM CDT Dar Kilpatrick MD LAB - POINT OF CAR E ORDERABLES Performing Organization Address City/[facility]/ZIP Co de Phone Number [facility] [address] [place] [address], [facility] [phone] * TRANSFUSE RED BLOOD CELL LEUKOREDUCED UNIT(S) (09/30/2021 11:16 AM CDT) Dar Kilpatrick MD NURSING - BLOOD OR OD TRANSFUSION * TRANSFUSE RED BLOOD CELL LEUKOREDUCED UNIT(S), 1 Units (09/30/2021 11:16 AM CDT) Dar Kilpatrick MD NURSING - BLOOD OR OD TRANSFUSION * (ABNORMAL) GLUCOSE - POINT OF CARE (09/30/2021 8:10 AM CDT) Glucose WB/POC 136(H) 70 - 115 mg/dL 09/30/2021 8:15 AM CDT [facility] Specimen Type Arterial 09/30/2021 8:15 AM CDT [facility] Blood BLOOD SPECIMEN / Unknown 09/30/2021 8:10 AM CDT 09/30/2021 8:15 AM CDT Dar Kilpatrick MD LAB - POINT OF CAR E ORDERABLES Performing Organization Address City/[facility]/ZIP Co de Phone Number [address] [address], [facility] [phone] * PREPARE (CROSSMATCH) RBC UNIT(S), 1 Units (09/30/2021 7:22 AM CDT) Unit Description AS1 LR PRBC [facility] BLOOD BANK LAB Unit ABO O [facility] BLOOD BANK LAB Unit Rh POS [facility] BLOOD B[facility] LAB Product Number R02 [facility] B LOOD BANK LAB Unit Donor # [id number] [facility] BLOOD [facility] LAB Unit Status transfused [facility] BLO OD BANK LAB Product Code [id number] [facility] BLO OD BANK LAB Blood Type Barcode 5100 [facility] BLOOD BANK LAB Expiration Date S BLOOD BANK LAB Blood Bank BLOOD SPECIMEN / Unknown 09/27/2021 9:39 PM CDT Dar Kilpatrick MD LAB - BLOOD BANK O RDERABLES [facility] BLOOD [facility] LAB [address] [place] [address], [facility] [phone] * (ABNORMAL) BLOOD GASES ART + COOX PANEL (09/30/2021 5:47 AM CDT) pH Arterial 7.54(H) 7.35 - 7.45 pH 09/30/2021 6:19 AM [facility] pO2 Arterial 70(L) 80 - 100 mmHg 09/30/2021 6:19 AM [facility] pCO2 Arterial 42 35 - 45 mmHg 6:19 AM [facility] HCO3 Arterial 36(H) 20 - 30 mmol/l 09/30/2021 6:19 AM [facility] BE Arterial 12.3(H) -2.0 - 2.0 mmol/L 09/30/2021 6:19 AM [facility] Oxyhemoglobin Arterial 94.5 % 09/30/2021 6:19 AM [facility] Dexoyhemoglobin (HHB) % 1.8 % 09/30/2021 6:19 AM [facility] Methemoglobin 1.7 0.0 - 2.0 % 09/30/2021 6:19 AM [facility] Carboxyhemoglobin 2.0 0.0 - 2.0 % 2021 6:19 AM [facility] O2 Content Arterial 8.9 Interpret within clinical context mg/dL 09/30/2021 6:19 AM [facility] Hemoglobin by COOX 6.6(L) 12.0 - 17.6 g/dL 09/30/2021 6:19 AM [facility] O2 Saturation Arterial 98 90 - 100 % 09/30/2021 6:19 AM [facility] FI O2 Arterial 40.0 % 09/30/2021 6:19 AM CDT [facility] Blood, arterial ARTERIAL BLOOD SPECIMEN / Unknown Arterial Puncture / Unknown 09/30/2021 5:47 AM CDT 09/30/2021 5:51 AM CDT Narrative [facility] - 09/30/2021 6:19 AM CDT Carboxyhemoglobin Normal Concentration: Non-smokers: 0-2%; Smokers: 0-9%; Toxic: >20% Dar Kilpatrick MD LAB - BLOOD GASES ORDERABLES Performing Organization Address [facility] de Phone Number [address] [address], [facility] [phone] * (ABNORMAL) CALCIUM IONIZED WHOLE BLOOD (09/30/2021 5:47 AM CDT) Pathologist [facility] Calcium Ionized 1.21 mmol/L 09/30/2021 5:58 AM CDT [facility] pH 7.57(H) 7.35 - 7.45 pH 09/30/2021 5:58 AM T [facility] Ionized Calcium pH Adjusted 1.30 1.19 - 1.34 mmol/L 09/30/2021 5:58 AM T [facility] Blood BLOOD SPECIMEN / Unknown Venipuncture / Unknown 09/30/2021 5:47 AM CDT 09/30/2021 5:51 AM CDT Dar Kilpatrick MD LAB - CHEMISTRY OR DERABLES Performing Organization Address [facility] de Phone Number [address] [address], [facility] [phone] * (ABNORMAL) BASIC METABOLIC PANEL (CALCIUM TOTAL) (09/30/2021 5:47 AM CDT) BUN 16 7 - 26 mg/dL 09/30/2021 6:22 AM T [facility] Creatinine 1.63(H) 0.71 - 1.16 mg/dL 09/30/2021 6:22 AM T [facility] Sodium 138 136 - 145 mmol/L 09/30/2021 6:22 AM T [facility] Potassium 3.4(L) 3.5 - 4.5 mmol/L 09/30/2021 6:22 AM [facility] Chloride 97(L) 98 - 107 mmol/L 09/30/2021 6:22 AM [facility] CO2 35(H) 22 - 29 mmol/L 09/30/2021 6:22 AM [facility] Glucose 130(H) 70 - 115 mg/dL 09/30/2021 6:22 AM [facility] Calcium 8.5 8.4 - 10.2 mg/dL 09/30/2021 6:22 AM [facility] Anion Gap 9 8 - 18 09/30/2021 6:22 AM [facility] BUN/Creatinine Ratio 10 7 - 23 09/30/2021 6:22 AM [facility] Osmolality Calculated 289 270 - 300 mOsm/kg 09/30/2021 6:22 AM [facility] eGFR by CKD-EPI 55(L) >=90 mL/min/1.7 3 m2 09/30/2021 6:22 AM [facility] Blood BLOOD SPECIMEN / Unknown Venipuncture / Unknown 09/30/2021 5:47 AM CDT 09/30/2021 5:57 AM CDT Dar Kilpatrick MD LAB - CHEMISTRY OR DERABLES Performing Organization Address City/State/[facility] Co de Phone Number [facility] [address] [place] [address], [facility] [phone] * (ABNORMAL) CBC W AUTO DIFFERENTIAL (09/30/2021 5:47 AM CDT) WBC 7.0 3.5 - 10.5 10? 3 /uL 09/30/2021 6:05 AM [facility] RBC 2.01(L) 4.30 - 5.70 10? 6 /uL 09/30/2021 6:05 AM [facility] Hemoglobin 6.3(L) 12.0 - 17.6 g/dL 09/30/2021 6:05 AM [facility] Hematocrit 18.4(L) 35.2 - 51.7 % 09/30/2021 6:05 AM [facility] MCV 91.5 80.7 - 98.3 fL 09/30/2021 6:05 AM [facility] MCH 31.3 26.7 - 34.0 pg 09/30/2021 6:05 AM [facility] MCHC 34.2 30.8 - 35.9 g/dL 09/30/2021 6:05 AM [facility] Platelet Count 108(L) 150 - 400 10? 3 /uL 09/30/2021 6:05 AM [facility] RDW-SD 45.9 36.0 - 50.0 fL 09/30/2021 6:05 AM [facility] RDW-CV 13.6 11.2 - 14.8 % 09/30/2021 6:05 AM [facility] MPV 10.8 9.4 - 12.9 fL 09/30/2021 6:05 AM [facility] nRBC Absolute 0.00 0 10? 3 /uL 09/30/2021 6:05 AM [facility] nRBC Auto 0.0 0 /100 WBC 09/30/2021 6:05 AM [facility] Neutrophils % 83.0(H) 35.0 - 70.0 % 09/30/2021 6:05 AM [facility] Lymphocytes % 9.1(L) 20.0 - 43.0 % 09/30/2021 6:05 AM [facility] Monocytes % 7.0 5.0 - 13.0 % 09/30/2021 6:05 AM [facility] Eosinophils % 0.4 0.0 - 6.0 % 09/30/2021 6:05 AM [facility] Basophil % 0.1 0.0 - 2.0 % 09/30/2021 6:05 AM [facility] Neutrophils Absolute 5.84 1.60 - 7.00 10? 3 /uL 09/30/2021 6:05 AM [facility] Lymphocyte Absolute 0.64(L) 1.10 - 3.90 10? 3 /uL 09/30/2021 6:05 AM [facility] Monocytes Absolute 0.49 0.26 - 1.07 10? 3 /uL 09/30/2021 6:05 AM CDT [facility] Eosinophils Absolute 0.03 0.00 - 0.47 10? 3 /uL 09/30/2021 6:05 AM CDT [facility] Basophils Absolute 0.01 0.00 - 0.08 10? 3 /uL 09/30/2021 6:05 AM CDT [facility] Immature Granulocytes % 0.4 0.0 - 1.0 % 09/30/2021 6:05 AM CDT [facility] Immature Granulocytes Absolute 0.03 09/30/2021 6:05 AM CDT [facility] Immature Platelet Fraction 4.7 1.1 - 6.2 % 09/30/2021 6:05 AM CDT [facility] Blood BLOOD SPECIMEN / Unknown Venipuncture / Unknown 09/30/2021 5:47 AM CDT 09/30/2021 5:57 AM CDT Darrell Gomez MD LAB - HEMATOLOGY ORD ERABLES [facility] [address] [place] [address], [facility] [phone] * XR CHEST 1VW PORTABLE (09/30/2021 4:26 [...] hemithorax. Report dictated by Marek Santos MD (presidential helicopter crew chief). I, Dr. AIDEN MCKEON have personally reviewed [...] hemithorax. Report dictated by Marek Santos MD (presidential helicopter crew chief). I, Dr. AIDEN MCKEON have personally reviewed and interpreted this examination/study. This report was electronically signed by AIDEN MCKEON on 09/30/2021 4:07 PM . Dar Kilpatrick MD DIAGNOSTIC IMAGING ORDERABLES * (ABNORMAL) GLUCOSE - POINT OF CARE (09/30/2021 3:49 AM CDT) Glucose WB/POC 141(H) 70 - 115 mg/dL 09/30/2021 3:50 AM CDT [facility] Specimen Type Cap Fingerstick 2021 3:50 AM CDT [facility] Blood BLOOD SPECIMEN / Unknown 09/30/2021 3:49 AM CDT 09/30/2021 3:50 AM CDT Dar Kilpatrick MD LAB - POINT OF CAR E ORDERABLES [facility] [address] [place] [address] [phone] * (ABNORMAL) BLOOD GASES ART + COOX PANEL (09/30/2021 12:16 AM [facility]) pH Arterial 7.50(H) 7.35 - 7.45 pH 09/30/2021 12:33 AM [facility] pO2 Arterial 90 80 - 100 mmHg 09/30/2021 12:33 AM [facility] pCO2 Arterial 48(H) 35 - 45 mmHg 12:33 AM [facility] HCO3 Arterial 37(H) 20 - 30 mmol/l 09/30/2021 12:33 AM [facility] BE Arterial 12.9(H) -2.0 - 2.0 mmol/L 09/30/2021 12:33 AM [facility] Oxyhemoglobin Arterial 96.0 % 09/30/2021 12:33 AM [facility] Dexoyhemoglobin (HHB) % 1.8 % 09/30/2021 12:33 AM [facility] Methemoglobin <0.8 0.0 - 2.0 % 09/30/2021 12:33 AM [facility] Carboxyhemoglobin 1.4 0.0 - 2.0 % 2021 12:33 AM [facility] O2 Content Arterial 10.2 Interpret within clinical context mg/dL 09/30/2021 12:33 AM [facility] Hemoglobin by COOX 7.4(L) 12.0 - 17.6 g/dL 09/30/2021 12:33 AM [facility] O2 Saturation Arterial 98 90 - 100 % 09/30/2021 12:33 AM [facility] FI O2 Arterial 40.0 % 09/30/2021 12:33 AM [facility] Blood, arterial ARTERIAL BLOOD SPECIMEN / Unknown Arterial Puncture / Unknown 09/30/2021 12:16 AM CDT 09/30/2021 12:19 AM [facility] - 09/30/2021 12:33 AM [facility] Carboxyhemoglobin Normal Concentration: Non-smokers: 0-2%; Smokers: 0-9%; Toxic: >20% Dar Kilpatrick MD LAB - BLOOD GASES ORDERABLES Performing Organization Address [facility]/ZIP Co de Phone Number [address] [address], [facility] [phone] * (ABNORMAL) CALCIUM IONIZED WHOLE BLOOD (09/30/2021 12:16 AM CDT) Calcium Ionized 1.11 mmol/L 09/30/2021 12:24 AM T [facility] pH 7.49(H) 7.35 - 7.45 pH 09/30/2021 12:24 AM [facility] Ionized Calcium pH Adjusted 1.15(L) 1.19 - 1.34 mmol/L 09/30/2021 12:24 AM [facility] Blood BLOOD SPECIMEN / Unknown Venipuncture / Unknown 09/30/2021 12:16 AM CDT 09/30/2021 12:19 AM CDT Dar Kilpatrick MD LAB - CHEMISTRY OR DERABLES Performing Organization Address [facility] Co de Phone Number [address] [address], [facility] [phone] * (ABNORMAL) BASIC METABOLIC PANEL (CALCIUM TOTAL) (09/30/2021 12:16 AM CDT) BUN 16 7 - 26 mg/dL 09/30/2021 12:46 AM [facility] Creatinine 1.72(H) 0.71 - 1.16 mg/dL 09/30/2021 12:46 AM [facility] Sodium 139 136 - 145 mmol/L 09/30/2021 12:46 AM [facility] Potassium 3.5 3.5 - 4.5 mmol/L 09/30/2021 12:46 AM [facility] Chloride 99 98 - 107 mmol/L 09/30/2021 12:46 AM [facility] CO2 33(H) 22 - 29 mmol/L 09/30/2021 12:[facility] Glucose 130(H) 70 - 115 mg/dL 09/30/2021 12:46 AM [facility] Calcium 7.9(L) 8.4 - 10.2 mg/dL 09/30/2021 12:46 AM [facility] Anion Gap 11 8 - 18 09/30/2021 12:46 AM [facility] BUN/Creatinine Ratio 9 7 - 23 09/30/2021 12:46 AM [facility] Osmolality Calculated 291 270 - 300 mOsm/kg 09/30/2021 12:46 AM [facility] eGFR by CKD-EPI 52(L) >=90 mL/min/1.7 3 m2 09/30/2021 12:46 AM [facility] Blood BLOOD SPECIMEN / Unknown Venipuncture / Unknown 09/30/2021 12:16 AM CDT 09/30/2021 12:20 AM T Dar Kilpatrick MD LAB - CHEMISTRY OR DERABLES Performing Organization Address [facility]/State/ZIP Co de Phone Number [facility] [address] [place] [address], [facility] [phone] * (ABNORMAL) CBC W AUTO DIFFERENTIAL (09/30/2021 12:16 AM [facility]) WBC 7.7 3.5 - 10.5 10? 3 /uL 09/30/2021 12:26 AM [facility] RBC 2.08(L) 4.30 - 5.70 10? 6 /uL 09/30/2021 12:26 AM [facility] Hemoglobin 6.5(L) 12.0 - 17.6 g/dL 09/30/2021 12:26 AM [facility] Hematocrit 19.0(L) 35.2 - 51.7 % 09/30/2021 12:26 AM [facility] MCV 91.3 80.7 - 98.3 fL 09/30/2021 12:26 AM [facility] MCH 31.3 26.7 - 34.0 pg 09/30/2021 12:26 AM [facility] MCHC 34.2 30.8 - 35.9 g/dL 09/30/2021 12:26 AM [facility] Platelet Count 102(L) 150 - 400 10? 3 /uL 09/30/2021 12:26 AM [facility] RDW-SD 46.5 36.0 - 50.0 fL 09/30/2021 12:26 AM [facility] RDW-CV 13.7 11.2 - 14.8 % 09/30/2021 12:26 AM [facility] MPV 10.8 9.4 - 12.9 fL 09/30/2021 12:26 AM [facility] nRBC Absolute 0.00 0 10? 3 /uL 09/30/2021 12:26 AM [facility] nRBC Auto 0.0 0 /100 WBC 09/30/2021 12:26 AM [facility] Neutrophils % 84.0(H) 35.0 - 70.0 % 09/30/2021 12:26 AM [facility] Lymphocytes % 7.7(L) 20.0 - 43.0 % 09/30/2021 12:26 AM [facility] Monocytes % 7.0 5.0 - 13.0 % 09/30/2021 12:26 AM [facility] Eosinophils % 0.4 0.0 - 6.0 % 09/30/2021 12:26 AM [facility] Basophil % 0.1 0.0 - 2.0 % 09/30/2021 12:26 AM [facility] Neutrophils Absolute 6.44 1.60 - 7.00 10? 3 /uL 09/30/2021 12:26 AM [facility] Lymphocyte Absolute 0.59(L) 1.10 - 3.90 10? 3 /uL 09/30/2021 12:26 AM [facility] Monocytes Absolute 0.54 0.26 - 1.07 10? 3 /uL 09/30/2021 12:26 AM [facility] Eosinophils Absolute 0.03 0.00 - 0.47 10? 3 /uL 09/30/2021 12:26 AM [facility] Basophils Absolute 0.01 0.00 - 0.08 10? 3 /uL 09/30/2021 12:26 AM CDT [facility] Immature Granulocytes % 0.8 0.0 - 1.0 % 09/30/2021 12:26 AM CDT [facility] Immature Granulocytes Absolute 0.06 09/30/2021 12:26 AM CDT [facility] Immature Platelet Fraction 4.8 1.1 - 6.2 % 09/30/2021 12:26 AM CDT [facility] Blood BLOOD SPECIMEN / Unknown Venipuncture / Unknown 09/30/2021 12:16 AM CDT 09/30/2021 12:20 AM CDT Darrell Gomez MD LAB - HEMATOLOGY ORD ERABLES Performing Organization Address City/[facility]/ZIP Co de Phone Number [address] [address], [facility] [phone] * (ABNORMAL) PHOSPHORUS BLOOD (09/30/2021 12:16 AM CDT) Phosphorus 2.4(L) 2.8 - 5.1 mg/dL 09/30/2021 12:46 AM CDT [facility] Blood BLOOD SPECIMEN / Unknown Venipuncture / Unknown 09/30/2021 12:16 AM CDT 09/30/2021 12:20 AM CDT Dar Kilpatrick MD LAB - CHEMISTRY OR DERABLES [address] [address], [place] [phone] * MAGNESIUM BLOOD (09/30/2021 12:16 AM CDT) Magnesium 1.9 1.6 - 2.6 mg/dL 09/30/2021 12:46 AM CDT [facility] Blood BLOOD SPECIMEN / Unknown Venipuncture / Unknown 09/30/2021 12:16 AM CDT 09/30/2021 12:20 AM CDT Dar Kilpatrick MD LAB - CHEMISTRY OR DERABLES [facility] [address] [place] [address], [place] [phone] * (ABNORMAL) GLUCOSE - POINT OF CARE (09/30/2021 12:12 AM CDT) Glucose WB/POC 136(H) 70 - 115 mg/dL 09/30/2021 12:15 AM CDT [facility] Specimen Type Arterial 09/30/2021 12:15 AM CDT [facility] Blood BLOOD SPECIMEN / Unknown 09/30/2021 12:12 AM CDT 09/30/2021 12:15 AM CDT Dar Kilpatrick MD LAB - POINT OF CAR E ORDERABLES [facility] [address] [place] [address], [place] [phone] * (ABNORMAL) GLUCOSE - POINT OF CARE (09/29/2021 8:18 PM CDT) Glucose WB/POC 122(H) 70 - 115 mg/dL 09/29/2021 8:19 PM CDT [facility] Specimen Type Cap Fingerstick 2021 8:19 PM CDT [facility] Blood BLOOD SPECIMEN / Unknown 09/29/2021 8:18 PM CDT 09/29/2021 8:19 PM CDT Dar Kilpatrick MD LAB - POINT OF CAR E ORDERABLES [facility] [address] [place] [address], [place] [phone] * (ABNORMAL) BLOOD GASES ART + COOX PANEL (09/29/2021 6:36 PM CDT) pH Arterial 7.48(H) 7.35 - 7.45 pH 09/29/2021 6:43 PM CDT [facility] pO2 Arterial 105(H) 80 - 100 mmHg 09/29/2021 6:43 PM [facility] pCO2 Arterial 45 35 - 45 mmHg 6:43 PM [facility] HCO3 Arterial 34(H) 20 - 30 mmol/l 09/29/2021 6:43 PM [facility] BE Arterial 9.1(H) -2.0 - 2.0 mmol/L 09/29/2021 6:43 PM [facility] Oxyhemoglobin Arterial 97.2 % 09/29/2021 6:43 PM [facility] Dexoyhemoglobin (HHB) % 0.6 % 09/29/2021 6:43 PM [facility] Methemoglobin <0.8 0.0 - 2.0 % 09/29/2021 6:43 PM [facility] Carboxyhemoglobin 1.4 0.0 - 2.0 % 2021 6:43 PM [facility] O2 Content Arterial 10.3 Interpret within clinical context mg/dL 09/29/2021 6:43 PM [facility] Hemoglobin by COOX 7.4(L) 12.0 - 17.6 g/dL 09/29/2021 6:43 PM [facility] O2 Saturation Arterial 99 90 - 100 % 09/29/2021 6:43 PM [facility] FI O2 Arterial 40.0 % 09/29/2021 6:43 PM [facility] Blood, arterial ARTERIAL BLOOD SPECIMEN / Unknown Arterial Puncture / Unknown 09/29/2021 6:36 PM CDT 09/29/2021 6:41 PM [facility] - 09/29/2021 6:43 PM T Carboxyhemoglobin Normal Concentration: Non-smokers: 0-2%; Smokers: 0-9%; Toxic: >20% Dar Kilpatrick MD LAB - BLOOD GASES ORDERABLES [facility] [address] [place] [address], [facility] [phone] * (ABNORMAL) CALCIUM IONIZED WHOLE BLOOD (09/29/2021 6:36 PM CDT) Calcium Ionized 1.08 mmol/L 09/29/2021 6:43 PM CDT [facility] pH 7.48(H) 7.35 - 7.45 pH 09/29/2021 6:43 PM T [facility] Ionized Calcium pH Adjusted 1.12(L) 1.19 - 1.34 mmol/L 09/29/2021 6:43 PM T [facility] Blood BLOOD SPECIMEN / Unknown Venipuncture / Unknown 09/29/2021 6:36 PM CDT 09/29/2021 6:40 PM CDT Dar Kilpatrick MD LAB - CHEMISTRY OR DERABLES Performing Organization Address City/State/[facility] Co de Phone Number [facility] [address] [place] [address], [facility] [phone] * (ABNORMAL) BASIC METABOLIC PANEL (CALCIUM TOTAL) (09/29/2021 6:36 PM CDT) [facility] BUN 18 7 - 26 mg/dL 09/29/2021 7:06 PM [facility] Creatinine 1.80(H) 0.71 - 1.16 mg/dL 09/29/2021 7:06 PM [facility] Sodium 141 136 - 145 mmol/L 09/29/2021 7:06 PM [facility] Potassium 3.5 3.5 - 4.5 mmol/L 09/29/2021 7:06 PM [facility] Chloride 102 98 - 107 mmol/L 09/29/2021 7:06 PM [facility] CO2 32(H) 22 - 29 mmol/L 09/29/2021 7:06 PM [facility] Glucose 134(H) 70 - 115 mg/dL 09/29/2021 7:06 PM [facility] Calcium 8.0(L) 8.4 - 10.2 mg/dL 09/29/2021 7:06 PM [facility] Anion Gap 11 8 - 18 09/29/2021 7:06 PM [facility] BUN/Creatinine Ratio 10 7 - 23 09/29/2021 7:06 PM [facility] Osmolality Calculated 296 270 - 300 mOsm/kg 09/29/2021 7:06 PM [facility] eGFR by CKD-EPI 49(L) >=90 mL/min/1.7 3 m2 09/29/2021 7:06 PM [facility] Blood BLOOD SPECIMEN / Unknown Venipuncture / Unknown 09/29/2021 6:36 PM CDT 09/29/2021 6:40 PM CDT Dar Kilpatrick MD LAB - CHEMISTRY OR DERABLES [facility] [address] [place] [address], [facility] [phone] * (ABNORMAL) CBC W AUTO DIFFERENTIAL (09/29/2021 6:36 PM CDT) WBC 9.3 3.5 - 10.5 10? 3 /uL 09/29/2021 6:46 PM [facility] RBC 2.26(L) 4.30 - 5.70 10? 6 /uL 09/29/2021 6:46 PM [facility] Hemoglobin 7.1(L) 12.0 - 17.6 g/dL 09/29/2021 6:46 PM [facility] Hematocrit 20.4(L) 35.2 - 51.7 % 09/29/2021 6:46 PM [facility] MCV 90.3 80.7 - 98.3 fL 09/29/2021 6:46 PM [facility] MCH 31.4 26.7 - 34.0 pg 09/29/2021 6:46 PM [facility] MCHC 34.8 30.8 - 35.9 g/dL 09/29/2021 6:46 PM [facility] Platelet Count 110(L) 150 - 400 10? 3 /uL 09/29/2021 6:46 PM [facility] RDW-SD 45.9 36.0 - 50.0 fL 09/29/2021 6:46 PM [facility] RDW-CV 13.9 11.2 - 14.8 % 09/29/2021 6:46 PM [facility] MPV 10.6 9.4 - 12.9 fL 09/29/2021 6:46 PM [facility] nRBC Absolute 0.00 0 10? 3 /uL 09/29/2021 6:46 PM [facility] nRBC Auto 0.0 0 /100 WBC 09/29/2021 6:46 PM [facility] Neutrophils % 82.9(H) 35.0 - 70.0 % 09/29/2021 6:46 PM [facility] Lymphocytes % 8.3(L) 20.0 - 43.0 % 09/29/2021 6:46 PM [facility] Monocytes % 7.9 5.0 - 13.0 % 09/29/2021 6:46 PM [facility] Eosinophils % 0.3 0.0 - 6.0 % 09/29/2021 6:46 PM [facility] Basophil % 0.1 0.0 - 2.0 % 09/29/2021 6:46 PM [facility] Neutrophils Absolute 7.70(H) 1.60 - 7.00 10? 3 /uL 09/29/2021 6:46 PM [facility] Lymphocyte Absolute 0.77(L) 1.10 - 3.90 10? 3 /uL 09/29/2021 6:46 PM [facility] Monocytes Absolute 0.73 0.26 - 1.07 10? 3 /uL 09/29/2021 6:46 PM [facility] Eosinophils Absolute 0.03 0.00 - 0.47 10? 3 /uL 09/29/2021 6:46 PM [facility] Basophils Absolute 0.01 0.00 - 0.08 10? 3 /uL 09/29/2021 6:46 PM [facility] Immature Granulocytes % 0.5 0.0 - 1.0 % 09/29/2021 6:46 PM [facility] Immature Granulocytes Absolute 0.05 09/29/2021 6:46 PM [facility] Immature Platelet Fraction 4.8 1.1 - 6.2 % 09/29/2021 6:46 PM CDT [facility] Blood BLOOD SPECIMEN / Unknown Venipuncture / Unknown 09/29/2021 6:36 PM CDT 09/29/2021 6:41 PM CDT Darrell Gomez MD LAB - HEMATOLOGY ORD ERABLES Performing Organization Address City/[facility]/ZIP Co de Phone Number [address] [address], [facility] [phone] * (ABNORMAL) GLUCOSE - POINT OF CARE (09/29/2021 4:12 PM CDT) Glucose WB/POC 138(H) 70 - 115 mg/dL 09/29/2021 4:17 PM CDT [facility] Specimen Type Cap Fingerstick 2021 4:17 PM CDT [facility] Blood BLOOD SPECIMEN / Unknown 09/29/2021 4:12 PM CDT 09/29/2021 4:17 PM CDT Dar Kilpatrick MD LAB - POINT OF CAR E ORDERABLES Performing Organization Address City/[facility]/ZIP Co de Phone Number [address] [address], [facility] [phone] * CT CHEST WO CONTRAST (09/29/2021 2:30 [...] 7.35 - 7.45 pH 09/29/2021 12:43 PM [facility] pO2 Arterial 151(H) 80 - 100 mmHg 09/29/2021 12:43 PM [facility] pCO2 Arterial 40 35 - 45 mmHg 12:43 PM [facility] HCO3 Arterial 31(H) 20 - 30 mmol/l 09/29/2021 12:43 PM [facility] BE Arterial 6.6(H) -2.0 - 2.0 mmol/L 09/29/2021 12:43 PM [facility] Oxyhemoglobin Arterial 98.6 % 09/29/2021 12:43 PM [facility] Dexoyhemoglobin (HHB) % 0.5 % 09/29/2021 12:43 PM [facility] Methemoglobin <0.8 0.0 - 2.0 % 09/29/2021 12:43 PM [facility] Carboxyhemoglobin 0.9 0.0 - 2.0 % 2021 12:43 PM [facility] O2 Content Arterial 10.3 Interpret within clinical context mg/dL 09/29/2021 12:43 PM [facility] Hemoglobin by COOX 7.2(L) 12.0 - 17.6 g/dL 09/29/2021 12:43 PM [facility] O2 Saturation Arterial 100 90 - 100 % 09/29/2021 12:43 PM [facility] FI O2 Arterial 40.0 % 09/29/2021 12:43 PM [facility] Blood, arterial ARTERIAL BLOOD SPECIMEN / Unknown Arterial Puncture / Unknown 09/29/2021 12:36 PM T 09/29/2021 12:39 PM [facility] - 09/29/2021 12:43 PM [facility] Carboxyhemoglobin Normal Concentration: Non-smokers: 0-2%; Smokers: 0-9%; Toxic: >20% Dar Kilpatrick MD LAB - BLOOD GASES ORDERABLES [address] [address], [facility] [phone] * (ABNORMAL) CALCIUM IONIZED WHOLE BLOOD (09/29/2021 12:36 PM CDT) [facility] Calcium Ionized 1.13 mmol/L 09/29/2021 12:43 PM CDT [facility] pH 7.48(H) 7.35 - 7.45 pH 09/29/2021 12:43 PM [facility] Ionized Calcium pH Adjusted 1.17(L) 1.19 - 1.34 mmol/L 09/29/2021 12:43 PM [facility] Blood BLOOD SPECIMEN / Unknown Venipuncture / Unknown 09/29/2021 12:36 PM CDT 09/29/2021 12:39 PM CDT Dar Kilpatrick MD LAB - CHEMISTRY OR DERABLES Performing Organization Address [facility] Co de Phone Number [address] [address], [facility] [phone] * (ABNORMAL) BASIC METABOLIC PANEL (CALCIUM TOTAL) (09/29/2021 12:36 PM CDT) [facility] BUN 19 7 - 26 mg/dL 09/29/2021 1:07 PM [facility] Creatinine 1.89(H) 0.71 - 1.16 mg/dL 09/29/2021 1:07 PM [facility] Sodium 141 136 - 145 mmol/L 09/29/2021 1:07 PM [facility] Potassium 3.8 3.5 - 4.5 mmol/L 09/29/2021 1:07 PM [facility] Chloride 104 98 - 107 mmol/L 09/29/2021 1:07 PM [facility] CO2 29 22 - 29 mmol/L 09/29/2021 1:07 PM [facility] Glucose 121(H) 70 - 115 mg/dL 09/29/2021 1:07 PM [facility] Calcium 8.0(L) 8.4 - 10.2 mg/dL 09/29/2021 1:07 PM [facility] Anion Gap 12 8 - 18 09/29/2021 1:07 PM [facility] BUN/Creatinine Ratio 10 7 - 23 09/29/2021 1:07 PM [facility] Osmolality Calculated 296 270 - 300 mOsm/kg 09/29/2021 1:07 PM [facility] eGFR by CKD-EPI 46(L) >=90 mL/min/1.7 3 m2 09/29/2021 1:07 PM [facility] Blood BLOOD SPECIMEN / Unknown Venipuncture / Unknown 09/29/2021 12:36 PM CDT 09/29/2021 12:43 PM CDT Dar Kilpatrick MD LAB - CHEMISTRY OR DERABLES [facility] [address] [place] [address], [facility] [phone] * (ABNORMAL) CBC W AUTO DIFFERENTIAL (09/29/2021 12:36 PM CDT) WBC 9.5 3.5 - 10.5 10? 3 /uL 09/29/2021 12:48 PM [facility] RBC 2.30(L) 4.30 - 5.70 10? 6 /uL 09/29/2021 12:48 PM [facility] Hemoglobin 7.2(L) 12.0 - 17.6 g/dL 09/29/2021 12:48 PM [facility] Hematocrit 20.9(L) 35.2 - 51.7 % 09/29/2021 12:48 PM [facility] MCV 90.9 80.7 - 98.3 fL 09/29/2021 12:48 PM [facility] MCH 31.3 26.7 - 34.0 pg 09/29/2021 12:48 PM [facility] MCHC 34.4 30.8 - 35.9 g/dL 09/29/2021 12:48 PM [facility] Platelet Count 106(L) 150 - 400 10? 3 /uL 09/29/2021 12:48 PM [facility] RDW-SD 46.7 36.0 - 50.0 fL 09/29/2021 12:48 PM [facility] RDW-CV 14.2 11.2 - 14.8 % 09/29/2021 12:48 PM [facility] MPV 11.1 9.4 - 12.9 fL 09/29/2021 12:48 PM [facility] nRBC Absolute 0.00 0 10? 3 /uL 09/29/2021 12:48 PM [facility] nRBC Auto 0.0 0 /100 WBC 09/29/2021 12:48 PM [facility] Neutrophils % 80.7(H) 35.0 - 70.0 % 09/29/2021 12:48 PM [facility] Lymphocytes % 9.2(L) 20.0 - 43.0 % 09/29/2021 12:48 PM [facility] Monocytes % 9.0 5.0 - 13.0 % 09/29/2021 12:48 PM [facility] Eosinophils % 0.2 0.0 - 6.0 % 09/29/2021 12:48 PM [facility] Basophil % 0.2 0.0 - 2.0 % 09/29/2021 12:48 PM [facility] Neutrophils Absolute 7.63(H) 1.60 - 7.00 10? 3 /uL 09/29/2021 12:48 PM [facility] Lymphocyte Absolute 0.87(L) 1.10 - 3.90 10? 3 /uL 09/29/2021 12:48 PM [facility] Monocytes Absolute 0.85 0.26 - 1.07 10? 3 /uL 09/29/2021 12:48 PM [facility] Eosinophils Absolute 0.02 0.00 - 0.47 10? 3 /uL 09/29/2021 12:48 PM [facility] Basophils Absolute 0.02 0.00 - 0.08 10? 3 /uL 09/29/2021 12:48 PM [facility] Immature Granulocytes % 0.7 0.0 - 1.0 % 09/29/2021 12:48 PM CDT [facility] Immature Granulocytes Absolute 0.07 09/29/2021 12:48 PM CDT [facility] Immature Platelet Fraction 5.0 1.1 - 6.2 % 09/29/2021 12:48 PM CDT [facility] Blood BLOOD SPECIMEN / Unknown Venipuncture / Unknown 09/29/2021 12:36 PM CDT 09/29/2021 12:43 PM CDT Darrell Gomez MD LAB - HEMATOLOGY ORD ERABLES Performing Organization Address City/[facility]/ZIP Co de Phone Number [address] [address], [place] [phone] * (ABNORMAL) GLUCOSE - POINT OF CARE (09/29/2021 12:23 PM CDT) Glucose WB/POC 130(H) 70 - 115 mg/dL 09/29/2021 12:24 PM CDT [facility] Specimen Type Cap Fingerstick 2021 12:24 PM CDT [facility] Blood BLOOD SPECIMEN / Unknown 09/29/2021 12:23 PM CDT 09/29/2021 12:24 PM CDT Dar Kilpatrick MD LAB - POINT OF CAR E ORDERABLES Performing Organization Address [facility]/ZIP Co de Phone Number [address] [address], [place] [phone] * (ABNORMAL) GLUCOSE - POINT OF CARE (09/29/2021 8:45 AM CDT) Glucose WB/POC 189(H) 70 - 115 mg/dL 09/29/2021 8:50 AM CDT [facility] Specimen Type Arterial 09/29/2021 8:50 AM CDT [facility] Blood BLOOD SPECIMEN / Unknown 09/29/2021 8:45 AM CDT 09/29/2021 8:50 AM CDT Dar Kilpatrick MD LAB - POINT OF CAR E ORDERABLES [facility] [address] [place] [address], [facility] [phone] * (ABNORMAL) BLOOD GASES ART + COOX PANEL (09/29/2021 6:03 AM [facility]) pH Arterial 7.47(H) 7.35 - 7.45 pH 09/29/2021 6:10 AM [facility] pO2 Arterial 133(H) 80 - 100 mmHg 09/29/2021 6:10 AM [facility] pCO2 Arterial 38 35 - 45 mmHg 6:10 AM [facility] HCO3 Arterial 28 20 - 30 mmol/l 09/29/2021 6:10 AM [facility] BE Arterial 3.8(H) -2.0 - 2.0 mmol/L 09/29/2021 6:10 AM [facility] Oxyhemoglobin Arterial 97.1 % 09/29/2021 6:10 AM [facility] Dexoyhemoglobin (HHB) % 1.6 % 09/29/2021 6:10 AM [facility] Methemoglobin <0.8 0.0 - 2.0 % 09/29/2021 6:10 AM [facility] Carboxyhemoglobin 0.8 0.0 - 2.0 % 2021 6:10 AM [facility] O2 Content Arterial 11.6 Interpret within clinical context mg/dL 09/29/2021 6:10 AM [facility] Hemoglobin by COOX 8.3(L) 12.0 - 17.6 g/dL 09/29/2021 6:10 AM [facility] O2 Saturation Arterial 98 90 - 100 % 09/29/2021 6:10 AM [facility] FI O2 Arterial 40.0 % 09/29/2021 6:10 AM [facility] Blood, arterial ARTERIAL BLOOD SPECIMEN / Unknown Arterial Puncture / Unknown 09/29/2021 6:03 AM CDT 09/29/2021 6:06 AM [facility] - 09/29/2021 6:10 AM CDT Carboxyhemoglobin Normal Concentration: Non-smokers: 0-2%; Smokers: 0-9%; Toxic: >20% Dar Kilpatrick MD LAB - BLOOD GASES ORDERABLES Performing Organization Address [facility] Co de Phone Number [address] [address], [facility] [phone] * (ABNORMAL) CALCIUM IONIZED WHOLE BLOOD (09/29/2021 6:03 AM CDT) Pathologist [facility] Calcium Ionized 1.19 mmol/L 09/29/2021 6:11 AM T [facility] pH 7.46(H) 7.35 - 7.45 pH 09/29/2021 6:11 AM T [facility] Ionized Calcium pH Adjusted 1.22 1.19 - 1.34 mmol/L 09/29/2021 6:11 AM T [facility] Blood BLOOD SPECIMEN / Unknown Venipuncture / Unknown 09/29/2021 6:03 AM CDT 09/29/2021 6:06 AM CDT Dar Kilpatrick MD LAB - CHEMISTRY OR DERABLES Performing Organization Address [facility] Co de Phone Number [address] [address], [facility] [phone] * (ABNORMAL) BASIC METABOLIC PANEL (CALCIUM TOTAL) (09/29/2021 6:03 AM CDT) Pathologist [facility] BUN 20 7 - 26 mg/dL 09/29/2021 6:53 AM T [facility] Creatinine 1.97(H) 0.71 - 1.16 mg/dL 09/29/2021 6:53 AM T [facility] Sodium 140 136 - 145 mmol/L 09/29/2021 6:53 AM T [facility] Potassium 3.9 3.5 - 4.5 mmol/L 09/29/2021 6:53 AM T [facility] Chloride 107 98 - 107 mmol/L 09/29/2021 6:53 AM T [facility] CO2 27 22 - 29 mmol/L 09/29/2021 6:53 AM [facility] Glucose 136(H) 70 - 115 mg/dL 09/29/2021 6:53 AM [facility] Calcium 8.2(L) 8.4 - 10.2 mg/dL 09/29/2021 6:53 AM [facility] Anion Gap 10 8 - 18 09/29/2021 6:53 AM [facility] BUN/Creatinine Ratio 10 7 - 23 09/29/2021 6:53 AM [facility] Osmolality Calculated 295 270 - 300 mOsm/kg 09/29/2021 6:53 AM [facility] eGFR by CKD-EPI 44(L) >=90 mL/min/1.7 3 m2 09/29/2021 6:53 AM [facility] Blood BLOOD SPECIMEN / Unknown Venipuncture / Unknown 09/29/2021 6:03 AM CDT 09/29/2021 6:07 AM T Dar Kilpatrick MD LAB - CHEMISTRY OR DERABLES Performing Organization Address [facility]/State/ZIP Co de Phone Number [address] [address], [facility] [phone] * (ABNORMAL) CBC W AUTO DIFFERENTIAL (09/29/2021 6:03 AM CDT) WBC 10.4 3.5 - 10.5 10? 3 /uL 09/29/2021 6:18 AM [facility] RBC 2.48(L) 4.30 - 5.70 10? 6 /uL 09/29/2021 6:18 AM [facility] Hemoglobin 7.7(L) 12.0 - 17.6 g/dL 09/29/2021 6:18 AM [facility] Hematocrit 22.5(L) 35.2 - 51.7 % 09/29/2021 6:18 AM [facility] MCV 90.7 80.7 - 98.3 fL 09/29/2021 6:18 AM [facility] MCH 31.0 26.7 - 34.0 pg 09/29/2021 6:18 AM [facility] MCHC 34.2 30.8 - 35.9 g/dL 09/29/2021 6:18 AM [facility] Platelet Count 106(L) 150 - 400 10? 3 /uL 09/29/2021 6:18 AM [facility] RDW-SD 46.5 36.0 - 50.0 fL 09/29/2021 6:18 AM [facility] RDW-CV 14.0 11.2 - 14.8 % 09/29/2021 6:18 AM [facility] MPV 10.6 9.4 - 12.9 fL 09/29/2021 6:18 AM [facility] nRBC Absolute 0.00 0 10? 3 /uL 09/29/2021 6:18 AM [facility] nRBC Auto 0.0 0 /100 WBC 09/29/2021 6:18 AM [facility] Neutrophils % 80.3(H) 35.0 - 70.0 % 09/29/2021 6:18 AM [facility] Lymphocytes % 10.4(L) 20.0 - 43.0 % 09/29/2021 6:18 AM [facility] Monocytes % 8.3 5.0 - 13.0 % 09/29/2021 6:18 AM [facility] Eosinophils % 0.3 0.0 - 6.0 % 09/29/2021 6:18 AM [facility] Basophil % 0.2 0.0 - 2.0 % 09/29/2021 6:18 AM [facility] Neutrophils Absolute 8.32(H) 1.60 - 7.00 10? 3 /uL 09/29/2021 6:18 AM [facility] Lymphocyte Absolute 1.08(L) 1.10 - 3.90 10? 3 /uL 09/29/2021 6:18 AM [facility] Monocytes Absolute 0.86 0.26 - 1.07 10? 3 /uL 09/29/2021 6:18 AM [facility] Eosinophils Absolute 0.03 0.00 - 0.47 10? 3 /uL 09/29/2021 6:18 AM CDT [facility] Basophils Absolute 0.02 0.00 - 0.08 10? 3 /uL 09/29/2021 6:18 AM CDT [facility] Immature Granulocytes % 0.5 0.0 - 1.0 % 09/29/2021 6:18 AM CDT [facility] Immature Granulocytes Absolute 0.05 09/29/2021 6:18 AM CDT [facility] Blood BLOOD SPECIMEN / Unknown Venipuncture / Unknown 09/29/2021 6:03 AM CDT 09/29/2021 6:07 AM CDT Darerll Gomez MD LAB - HEMATOLOGY ORD ERABLES [facility] [address] [place] [phone], [facility] [phone] * XR CHEST 1VW PORTABLE (09/29/2021 4:27 [...] Report dictated by Elmer Gomez MD, PhD (presidential helicopter crew chief). I, Dr. MICAELA MCCULLOUGH have personally reviewed [...] Report dictated by Elmer Gomez MD, PhD (presidential helicopter crew chief). I, Dr. MICAELA MCCULLOUGH have personally reviewed and interpreted this examination/study. This report was electronically signed by MICAELA MCCULLOUGH on 1:18 AM . Dar Kilpatrick MD DIAGNOSTIC IMAGING ORDERABLES * (ABNORMAL) GLUCOSE - POINT OF CARE (09/29/2021 3:59 AM CDT) Glucose WB/POC 136(H) 70 - 115 mg/dL 09/29/2021 4:04 AM CDT [facility] Specimen Type Arterial 09/29/2021 4:04 AM CDT [facility] Blood BLOOD SPECIMEN / Unknown 09/29/2021 3:59 AM CDT 09/29/2021 4:04 AM CDT Dar Kilpatrick MD LAB - POINT OF CAR E ORDERABLES [facility] [address] [place] [id number], [place] [phone] * PHOSPHORUS BLOOD (09/29/2021 12:12 AM CDT) Phosphorus 3.6 2.8 - 5.1 mg/dL 09/29/2021 12:49 AM CDT [facility] Blood BLOOD SPECIMEN / Unknown Venipuncture / Unknown 09/29/2021 12:12 AM CDT 09/29/2021 12:18 AM CDT Dar Kilpatrick MD LAB - CHEMISTRY OR DERABLES Performing Organization Address City/[facility]/ZIP Co de Phone Number [address] [address], [facility] [phone] * MAGNESIUM BLOOD (09/29/2021 12:12 AM CDT) Magnesium 1.7 1.6 - 2.6 mg/dL 09/29/2021 12:49 AM T [facility] Blood BLOOD SPECIMEN / Unknown Venipuncture / Unknown 09/29/2021 12:12 AM CDT 09/29/2021 12:18 AM CDT Dar Kilpatrick MD LAB - CHEMISTRY OR DERABLES Performing Organization Address [facility] Co de Phone Number [address] [address], [facility] [phone] * (ABNORMAL) BLOOD GASES ART + COOX PANEL (09/29/2021 12:12 AM CDT) pH Arterial 7.44 7.35 - 7.45 pH 09/29/2021 12:19 AM [facility] pO2 Arterial 131(H) 80 - 100 mmHg 09/29/2021 12:19 AM [facility] pCO2 Arterial 37 35 - 45 mmHg 12:19 AM [facility] HCO3 Arterial 25 20 - 30 mmol/l 09/29/2021 12:19 AM [facility] BE Arterial 1.0 -2.0 - 2.0 mmol/L 09/29/2021 12:19 AM [facility] Oxyhemoglobin Arterial 97.4 % 09/29/2021 12:19 AM [facility] Dexoyhemoglobin (HHB) % 1.4 % 09/29/2021 12:19 AM [facility] Methemoglobin <0.8 0.0 - 2.0 % 09/29/2021 12:19 AM [facility] Carboxyhemoglobin 0.9 0.0 - 2.0 % 2021 12:19 AM [facility] O2 Content Arterial 12.2 Interpret within clinical context mg/dL 09/29/2021 12:19 AM [facility] Hemoglobin by COOX 8.7(L) 12.0 - 17.6 g/dL 09/29/2021 12:19 AM [facility] O2 Saturation Arterial 99 90 - 100 % 09/29/2021 12:19 AM [facility] FI O2 Arterial 40.0 % 09/29/2021 12:19 AM [facility] Blood, arterial ARTERIAL BLOOD SPECIMEN / Unknown Arterial Puncture / Unknown 09/29/2021 12:12 AM [facility] 09/29/2021 12:17 AM [facility] - 09/29/2021 12:19 AM [facility] Carboxyhemoglobin Normal Concentration: Non-smokers: 0-2%; Smokers: 0-9%; Toxic: >20% Dar Kilpatrick MD LAB - BLOOD GASES ORDERABLES Performing Organization Address City/State/[facility] Co de Phone Number [address] [address], [facility] [phone] * (ABNORMAL) CALCIUM IONIZED WHOLE BLOOD (09/29/2021 12:12 AM [facility]) Calcium Ionized 1.15 mmol/L 09/29/2021 12:21 AM [facility] pH 7.43 7.35 - 7.45 pH 09/29/2021 12:21 AM [facility] Ionized Calcium pH Adjusted 1.16(L) 1.19 - 1.34 mmol/L 09/29/2021 12:21 AM [facility] Blood BLOOD SPECIMEN / Unknown Venipuncture / Unknown 09/29/2021 12:12 AM CDT 09/29/2021 12:17 AM CDT Dar Kilpatrick MD LAB - CHEMISTRY OR DERABLES [facility] [address] [place] [address], [facility] [phone] * (ABNORMAL) BASIC METABOLIC PANEL (CALCIUM TOTAL) (09/29/2021 12:12 AM CDT) BUN 18 7 - 26 mg/dL 09/29/2021 12:49 AM [facility] Creatinine 2.01(H) 0.71 - 1.16 mg/dL 09/29/2021 12:49 AM [facility] Sodium 141 136 - 145 mmol/L 09/29/2021 12:49 AM [facility] Potassium 4.1 3.5 - 4.5 mmol/L 09/29/2021 12:49 AM [facility] Chloride 109(H) 98 - 107 mmol/L 09/29/2021 12:49 AM [facility] CO2 24 22 - 29 mmol/L 09/29/2021 12:49 AM [facility] Glucose 140(H) 70 - 115 mg/dL 09/29/2021 12:49 AM [facility] Calcium 8.0(L) 8.4 - 10.2 mg/dL 09/29/2021 12:49 AM [facility] Anion Gap 12 8 - 18 09/29/2021 12:49 AM [facility] BUN/Creatinine Ratio 9 7 - 23 09/29/2021 12:49 AM [facility] Osmolality Calculated 296 270 - 300 mOsm/kg 09/29/2021 12:49 AM [facility] eGFR by CKD-EPI 43(L) >=90 mL/min/1.7 3 m2 09/29/2021 12:49 AM [facility] Blood BLOOD SPECIMEN / Unknown Venipuncture / Unknown 09/29/2021 12:12 AM CDT 09/29/2021 12:18 AM CDT Dar Kilpatrick MD LAB - CHEMISTRY OR DERABLES Performing Organization Address City/State/[facility] Co de Phone Number [facility] [address] [place] [address], [facility] [phone] * (ABNORMAL) CBC W AUTO DIFFERENTIAL (09/29/2021 12:12 AM CDT) WBC 11.2(H) 3.5 - 10.5 10? 3 /uL 09/29/2021 12:32 AM [facility] RBC 2.63(L) 4.30 - 5.70 10? 6 /uL 09/29/2021 12:32 AM [facility] Hemoglobin 8.2(L) 12.0 - 17.6 g/dL 09/29/2021 12:32 AM [facility] Hematocrit 23.9(L) 35.2 - 51.7 % 09/29/2021 12:32 AM [facility] MCV 90.9 80.7 - 98.3 fL 09/29/2021 12:32 AM [facility] MCH 31.2 26.7 - 34.0 pg 09/29/2021 12:32 AM [facility] MCHC 34.3 30.8 - 35.9 g/dL 09/29/2021 12:32 AM [facility] Platelet Count 126(L) 150 - 400 10? 3 /uL 09/29/2021 12:32 AM [facility] RDW-SD 46.6 36.0 - 50.0 fL 09/29/2021 12:32 AM [facility] RDW-CV 14.0 11.2 - 14.8 % 09/29/2021 12:32 AM [facility] MPV 10.7 9.4 - 12.9 fL 09/29/2021 12:32 AM [facility] nRBC Absolute 0.00 0 10? 3 /uL 09/29/2021 12:32 AM [facility] nRBC Auto 0.0 0 /100 WBC 09/29/2021 12:32 AM [facility] Neutrophils % 82.3(H) 35.0 - 70.0 % 09/29/2021 12:32 AM [facility] Lymphocytes % 8.9(L) 20.0 - 43.0 % 09/29/2021 12:32 AM [facility] Monocytes % 8.2 5.0 - 13.0 % 09/29/2021 12:32 AM [facility] Eosinophils % 0.1 0.0 - 6.0 % 09/29/2021 12:32 AM [facility] Basophil % 0.1 0.0 - 2.0 % 09/29/2021 12:32 AM [facility] Neutrophils Absolute 9.20(H) 1.60 - 7.00 10? 3 /uL 09/29/2021 12:32 AM [facility] Lymphocyte Absolute 1.00(L) 1.10 - 3.90 10? 3 /uL 09/29/2021 12:32 AM [facility] Monocytes Absolute 0.92 0.26 - 1.07 10? 3 /uL 09/29/2021 12:32 AM [facility] Eosinophils Absolute 0.01 0.00 - 0.47 10? 3 /uL 09/29/2021 12:32 AM [facility] Basophils Absolute 0.01 0.00 - 0.08 10? 3 /uL 09/29/2021 12:32 AM [facility] Immature Granulocytes % 0.4 0.0 - 1.0 % 09/29/2021 12:32 AM [facility] Immature Granulocytes Absolute 0.05 09/29/2021 12:32 AM [facility] Immature Platelet Fraction 4.5 1.1 - 6.2 % 09/29/2021 12:32 AM [facility] Blood BLOOD SPECIMEN / Unknown Venipuncture / Unknown 09/29/2021 12:12 AM CDT 09/29/2021 12:18 AM [facility] Darrell Gomez MD LAB - HEMATOLOGY ORD ERABLES [facility] [address] [place] [address], [facility] [phone] * (ABNORMAL) GLUCOSE - POINT OF CARE (09/29/2021 12:11 AM CDT) Glucose WB/POC 142(H) 70 - 115 mg/dL 09/29/2021 12:12 AM CDT [facility] Specimen Type Arterial 09/29/2021 12:12 AM CDT [facility] Blood BLOOD SPECIMEN / Unknown 09/29/2021 12:11 AM CDT 09/29/2021 12:12 AM CDT Dar Kilpatrick MD LAB - POINT OF CAR E ORDERABLES Performing Organization Address City/[facility]/ZIP Co de Phone Number [address] [address], [place] [phone] * (ABNORMAL) GLUCOSE - POINT OF CARE (09/28/2021 8:03 PM CDT) Glucose WB/POC 136(H) 70 - 115 mg/dL 09/28/2021 8:05 PM CDT [facility] Specimen Type Cap Fingerstick 2021 8:05 PM CDT [facility] Blood BLOOD SPECIMEN / Unknown 09/28/2021 8:03 PM CDT 09/28/2021 8:05 PM CDT Dar Kilpatrick MD LAB - POINT OF CAR E ORDERABLES [address] [address], [place] [phone] * (ABNORMAL) BLOOD GASES ART + COOX PANEL (09/28/2021 5:49 PM CDT) pH Arterial 7.39 7.35 - 7.45 pH 09/28/2021 5:58 PM CDT [facility] pO2 Arterial 129(H) 80 - 100 mmHg 09/28/2021 5:58 PM CDT [facility] pCO2 Arterial 34(L) 35 - 45 mmHg 5:58 PM CDT [facility] HCO3 Arterial 21 20 - 30 mmol/l 09/28/2021 5:58 PM [facility] BE Arterial -3.8(L) -2.0 - 2.0 mmol/L 09/28/2021 5:58 PM [facility] Oxyhemoglobin Arterial 98.3 % 09/28/2021 5:58 PM [facility] Dexoyhemoglobin (HHB) % 0.3 % 09/28/2021 5:58 PM [facility] Methemoglobin <0.8 0.0 - 2.0 % 09/28/2021 5:58 PM [facility] Carboxyhemoglobin 1.1 0.0 - 2.0 % 2021 5:58 PM [facility] O2 Content Arterial 13.2 Interpret within clinical context mg/dL 09/28/2021 5:58 PM [facility] Hemoglobin by COOX 9.4(L) 12.0 - 17.6 g/dL 09/28/2021 5:58 PM [facility] O2 Saturation Arterial 100 90 - 100 % 09/28/2021 5:58 PM [facility] FI O2 Arterial 40.0 % 09/28/2021 5:58 PM [facility] Blood, arterial ARTERIAL BLOOD SPECIMEN / Unknown Arterial Puncture / Unknown 09/28/2021 5:49 PM CDT 09/28/2021 5:53 PM CDT Narrative [facility] - 09/28/2021 5:58 PM CDT Carboxyhemoglobin Normal Concentration: Non-smokers: 0-2%; Smokers: 0-9%; Toxic: >20% Dar Kilpatrick MD LAB - BLOOD GASES ORDERABLES [facility] [address] [place] [phone], [facility] [phone] * CALCIUM IONIZED WHOLE BLOOD (09/28/2021 5:49 PM CDT) Calcium Ionized 1.21 mmol/L 09/28/2021 5:59 PM [facility] pH 7.37 7.35 - 7.45 pH 09/28/2021 5:59 PM [facility] Ionized Calcium pH Adjusted 1.20 1.19 - 1.34 mmol/L 09/28/2021 5:59 PM [facility] Blood BLOOD SPECIMEN / Unknown Venipuncture / Unknown 09/28/2021 5:49 PM CDT 09/28/2021 5:53 PM CDT Dar Kilpatrick MD LAB - CHEMISTRY OR DERABLES [facility] [address] [place] [address], [facility] [phone] * (ABNORMAL) BASIC METABOLIC PANEL (CALCIUM TOTAL) (09/28/2021 5:49 PM CDT) BUN 17 7 - 26 mg/dL 09/28/2021 6:22 PM [facility] Creatinine 1.96(H) 0.71 - 1.16 mg/dL 09/28/2021 6:22 PM [facility] Sodium 141 136 - 145 mmol/L 09/28/2021 6:22 PM [facility] Potassium 4.8(H) 3.5 - 4.5 mmol/L 09/28/2021 6:22 PM [facility] Chloride 113(H) 98 - 107 mmol/L 09/28/2021 6:22 PM [facility] CO2 20(L) 22 - 29 mmol/L 09/28/2021 6:22 PM [facility] Glucose 125(H) 70 - 115 mg/dL 09/28/2021 6:22 PM [facility] Calcium 8.3(L) 8.4 - 10.2 mg/dL 09/28/2021 6:22 PM [facility] Anion Gap 13 8 - 18 09/28/2021 6:22 PM [facility] BUN/Creatinine Ratio 9 7 - 23 09/28/2021 6:22 PM [facility] Osmolality Calculated 295 270 - 300 mOsm/kg 09/28/2021 6:22 PM [facility] eGFR by CKD-EPI 44(L) >=90 mL/min/1.7 3 m2 09/28/2021 6:22 PM [facility] Blood BLOOD SPECIMEN / Unknown Venipuncture / Unknown 09/28/2021 5:49 PM CDT 09/28/2021 5:54 PM CDT Dar Kilaptrick MD LAB - CHEMISTRY OR DERABLES Performing Organization Address [facility] Co de Phone Number [facility] [address] [place] [address], [facility] [phone] * (ABNORMAL) CBC W AUTO DIFFERENTIAL (09/28/2021 5:49 PM CDT) WBC 12.6(H) 3.5 - 10.5 10? 3 /uL 09/28/2021 5:58 PM [facility] RBC 2.93(L) 4.30 - 5.70 10? 6 /uL 09/28/2021 5:58 PM [facility] Hemoglobin 9.2(L) 12.0 - 17.6 g/dL 09/28/2021 5:58 PM [facility] Hematocrit 26.7(L) 35.2 - 51.7 % 09/28/2021 5:58 PM [facility] MCV 91.1 80.7 - 98.3 fL 09/28/2021 5:58 PM [facility] MCH 31.4 26.7 - 34.0 pg 09/28/2021 5:58 PM [facility] MCHC 34.5 30.8 - 35.9 g/dL 09/28/2021 5:58 PM [facility] Platelet Count 144(L) 150 - 400 10? 3 /uL 09/28/2021 5:58 PM [facility] RDW-SD 47.6 36.0 - 50.0 fL 09/28/2021 5:58 PM [facility] RDW-CV 14.1 11.2 - 14.8 % 09/28/2021 5:58 PM [facility] MPV 10.3 9.4 - 12.9 fL 09/28/2021 5:58 PM [facility] nRBC Absolute 0.00 0 10? 3 /uL 09/28/2021 5:58 PM [facility] nRBC Auto 0.0 0 /100 WBC 09/28/2021 5:58 PM [facility] Neutrophils % 84.9(H) 35.0 - 70.0 % 09/28/2021 5:58 PM [facility] Lymphocytes % 7.3(L) 20.0 - 43.0 % 09/28/2021 5:58 PM [facility] Monocytes % 7.1 5.0 - 13.0 % 09/28/2021 5:58 PM [facility] Eosinophils % 0.0 0.0 - 6.0 % 09/28/2021 5:58 PM [facility] Basophil % 0.1 0.0 - 2.0 % 09/28/2021 5:58 PM [facility] Neutrophils Absolute 10.72(H) 1.60 - 7.00 10? 3 /uL 09/28/2021 5:58 PM [facility] Lymphocyte Absolute 0.92(L) 1.10 - 3.90 10? 3 /uL 09/28/2021 5:58 PM [facility] Monocytes Absolute 0.89 0.26 - 1.07 10? 3 /uL 09/28/2021 5:58 PM [facility] Eosinophils Absolute 0.00 0.00 - 0.47 10? 3 /uL 09/28/2021 5:58 PM [facility] Basophils Absolute 0.01 0.00 - 0.08 10? 3 /uL 09/28/2021 5:58 PM [facility] Immature Granulocytes % 0.6 0.0 - 1.0 % 09/28/2021 5:58 PM [facility] Immature Granulocytes Absolute 0.08 09/28/2021 5:58 PM [facility] Immature Platelet Fraction 4.1 1.1 - 6.2 % 09/28/2021 5:58 PM [facility] Blood BLOOD SPECIMEN / Unknown Venipuncture / Unknown 09/28/2021 5:49 PM CDT 09/28/2021 5:54 PM CDT Darrell Gomez MD LAB - HEMATOLOGY ORD ERABLES [facility] [address] [place] [address], [facility] [phone] * (ABNORMAL) GLUCOSE - POINT OF CARE (09/28/2021 4:05 PM CDT) Pathologist [facility] Glucose WB/POC 129(H) 70 - 115 mg/dL 09/28/2021 4:10 PM CDT [facility] Specimen Type Arterial 09/28/2021 4:10 PM T [facility] Blood BLOOD SPECIMEN / Unknown 09/28/2021 4:05 PM CDT 09/28/2021 4:10 PM CDT Dar Kilpatrick MD LAB - POINT OF CAR E ORDERABLES Performing Organization Address City/[facility]/ZIP Co de Phone Number [facility] [address] [place] [address], [facility] [phone] * (ABNORMAL) BLOOD GASES ART + COOX PANEL (09/28/2021 11:54 AM CDT) Pathologist [facility] pH Arterial 7.33(L) 7.35 - 7.45 pH 09/28/2021 12:04 PM [facility] pO2 Arterial 141(H) 80 - 100 mmHg 09/28/2021 12:04 PM [facility] pCO2 Arterial 37 35 - 45 mmHg 12:04 PM T [facility] HCO3 Arterial 20 20 - 30 mmol/l 09/28/2021 12:04 PM T [facility] BE Arterial -5.9(L) -2.0 - 2.0 mmol/L 09/28/2021 12:04 PM [facility] Oxyhemoglobin Arterial 97.5 % 09/28/2021 12:04 PM [facility] Dexoyhemoglobin (HHB) % 0.7 % 09/28/2021 12:04 PM [facility] Methemoglobin 0.8 0.0 - 2.0 % 09/28/2021 12:04 PM [facility] Carboxyhemoglobin 1.0 0.0 - 2.0 % 2021 12:04 PM [facility] O2 Content Arterial 14.9 Interpret within clinical context mg/dL 09/28/2021 12:04 PM [facility] Hemoglobin by COOX 10.7(L) 12.0 - 17.6 g/dL 09/28/2021 12:04 PM [facility] O2 Saturation Arterial 99 90 - 100 % 09/28/2021 12:04 PM [facility] FI O2 Arterial 40.0 % 09/28/2021 12:04 PM [facility] Blood, arterial ARTERIAL BLOOD SPECIMEN / Unknown Arterial Puncture / Unknown 09/28/2021 11:54 AM CDT 09/28/2021 12:01 PM CDT Narrative [facility] - 09/28/2021 12:04 PM [facility] Carboxyhemoglobin Normal Concentration: Non-smokers: 0-2%; Smokers: 0-9%; Toxic: >20% Dar Kilpatrick MD LAB - BLOOD GASES ORDERABLES Performing Organization Address City/State/[facility] Co de Phone Number [facility] [address] [place] [id number], [facility] [phone] * (ABNORMAL) CALCIUM IONIZED WHOLE BLOOD (09/28/2021 11:54 AM CDT) Calcium Ionized 1.22 mmol/L 09/28/2021 12:05 PM [facility] pH 7.33(L) 7.35 - 7.45 pH 09/28/2021 12:05 PM [facility] Ionized Calcium pH Adjusted 1.19 1.19 - 1.34 mmol/L 09/28/2021 12:05 PM [facility] Blood BLOOD SPECIMEN / Unknown Venipuncture / Unknown 09/28/2021 11:54 AM CDT 09/28/2021 12:01 PM CDT Dar Kilpatrick MD LAB - CHEMISTRY OR DERABLES Performing Organization Address City/[facility]/ZIP Co de Phone Number [facility] [address] [place] [address], [facility] [phone] * (ABNORMAL) BASIC METABOLIC PANEL (CALCIUM TOTAL) (09/28/2021 11:54 AM CDT) BUN 15 7 - 26 mg/dL 09/28/2021 1:22 PM [facility] Creatinine 1.78(H) 0.71 - 1.16 mg/dL 09/28/2021 1:22 PM [facility] Sodium 141 136 - 145 mmol/L 09/28/2021 1:22 PM [facility] Potassium 5.1(H) 3.5 - 4.5 mmol/L 09/28/2021 1:22 PM [facility] Chloride 113(H) 98 - 107 mmol/L 09/28/2021 1:22 PM [facility] CO2 19(L) 22 - 29 mmol/L 09/28/2021 1:22 PM [facility] Glucose 123(H) 70 - 115 mg/dL 09/28/2021 1:22 PM [facility] Calcium 8.5 8.4 - 10.2 mg/dL 09/28/2021 1:22 PM [facility] Anion Gap 14 8 - 18 09/28/2021 1:22 PM [facility] BUN/Creatinine Ratio 8 7 - 23 09/28/2021 1:22 PM [facility] Osmolality Calculated 294 270 - 300 mOsm/kg 09/28/2021 1:22 PM [facility] eGFR by CKD-EPI 49(L) >=90 mL/min/1.7 3 m2 09/28/2021 1:22 PM [facility] Blood BLOOD SPECIMEN / Unknown Venipuncture / Unknown 09/28/2021 11:54 AM CDT 09/28/2021 12:24 PM CDT Dar Kilpatrick MD LAB - CHEMISTRY OR DERABLES [address] [address], [facility] [phone] * (ABNORMAL) CBC W AUTO DIFFERENTIAL (09/28/2021 11:54 AM CDT) [facility] Signature WBC 15.2(H) 3.5 - 10.5 10? 3 /uL 09/28/2021 12:35 PM [facility] RBC 3.31(L) 4.30 - 5.70 10? 6 /uL 09/28/2021 12:35 PM [facility] Hemoglobin 10.3(L) 12.0 - 17.6 g/dL 09/28/2021 12:35 PM [facility] Hematocrit 30.5(L) 35.2 - 51.7 % 09/28/2021 12:35 PM [facility] MCV 92.1 80.7 - 98.3 fL 09/28/2021 12:35 PM [facility] MCH 31.1 26.7 - 34.0 pg 09/28/2021 12:35 PM [facility] MCHC 33.8 30.8 - 35.9 g/dL 09/28/2021 12:35 PM [facility] Platelet Count 143(L) 150 - 400 10? 3 /uL 09/28/2021 12:35 PM [facility] RDW-SD 47.8 36.0 - 50.0 fL 09/28/2021 12:35 PM [facility] RDW-CV 14.1 11.2 - 14.8 % 09/28/2021 12:35 PM [facility] MPV 10.5 9.4 - 12.9 fL 09/28/2021 12:35 PM [facility] nRBC Absolute 0.00 0 10? 3 /uL 09/28/2021 12:35 PM [facility] nRBC Auto 0.0 0 /100 WBC 09/28/2021 12:35 PM [facility] Neutrophils % 87.4(H) 35.0 - 70.0 % 09/28/2021 12:35 PM [facility] Lymphocytes % 4.8(L) 20.0 - 43.0 % 09/28/2021 12:35 PM [facility] Monocytes % 7.3 5.0 - 13.0 % 09/28/2021 12:35 PM [facility] Eosinophils % 0.0 0.0 - 6.0 % 09/28/2021 12:35 PM [facility] Basophil % 0.1 0.0 - 2.0 % 09/28/2021 12:35 PM [facility] Neutrophils Absolute 13.28(H) 1.60 - 7.00 10? 3 /uL 09/28/2021 12:35 PM [facility] Lymphocyte Absolute 0.73(L) 1.10 - 3.90 10? 3 /uL 09/28/2021 12:35 PM [facility] Monocytes Absolute 1.11(H) 0.26 - 1.07 10? 3 /uL 09/28/2021 12:35 PM [facility] Eosinophils Absolute 0.00 0.00 - 0.47 10? 3 /uL 09/28/2021 12:35 PM T [facility] Basophils Absolute 0.01 0.00 - 0.08 10? 3 /uL 09/28/2021 12:35 PM [facility] Immature Granulocytes % 0.4 0.0 - 1.0 % 09/28/2021 12:35 PM [facility] Immature Granulocytes Absolute 0.06 09/28/2021 12:35 PM [facility] Blood BLOOD SPECIMEN / Unknown Venipuncture / Unknown 09/28/2021 11:54 AM CDT 09/28/2021 12:24 PM CDT Darrell Gomez MD LAB - HEMATOLOGY ORD ERABLES [facility] [address] [place] [address], [facility] [phone] * (ABNORMAL) GLUCOSE - POINT OF CARE (09/28/2021 8:21 AM CDT) Glucose WB/POC 137(H) 70 - 115 mg/dL 09/28/2021 8:22 AM CDT [facility] Specimen Type Cap Fingerstick 2021 8:22 AM [facility] Blood BLOOD SPECIMEN / Unknown 09/28/2021 8:21 AM CDT 09/28/2021 8:22 AM CDT Dar Kilpatrick MD LAB - POINT OF CAR E ORDERABLES [facility] [address] [place] [address], [facility] [phone] * (ABNORMAL) CBC W AUTO DIFFERENTIAL (09/28/2021 6:14 AM CDT) WBC 19.6(H) 3.5 - 10.5 10? 3 /uL 09/28/2021 6:29 AM [facility] RBC 3.44(L) 4.30 - 5.70 10? 6 /uL 09/28/2021 6:29 AM [facility] Hemoglobin 10.7(L) 12.0 - 17.6 g/dL 09/28/2021 6:29 AM [facility] Hematocrit 31.8(L) 35.2 - 51.7 % 09/28/2021 6:29 AM [facility] MCV 92.4 80.7 - 98.3 fL 09/28/2021 6:29 AM [facility] MCH 31.1 26.7 - 34.0 pg 09/28/2021 6:29 AM [facility] MCHC 33.6 30.8 - 35.9 g/dL 09/28/2021 6:29 AM [facility] Platelet Count 181 150 - 400 10? 3 /uL 09/28/2021 6:29 AM [facility] RDW-SD 48.0 36.0 - 50.0 fL 09/28/2021 6:29 AM [facility] RDW-CV 14.1 11.2 - 14.8 % 09/28/2021 6:29 AM [facility] MPV 9.9 9.4 - 12.9 fL 09/28/2021 6:29 AM [facility] nRBC Absolute 0.00 0 10? 3 /uL 09/28/2021 6:29 AM [facility] nRBC Auto 0.0 0 /100 WBC 09/28/2021 6:29 AM [facility] Neutrophils % 88.5(H) 35.0 - 70.0 % 09/28/2021 6:29 AM [facility] Lymphocytes % 3.2(L) 20.0 - 43.0 % 09/28/2021 6:29 AM [facility] Monocytes % 7.7 5.0 - 13.0 % 09/28/2021 6:29 AM [facility] Eosinophils % 0.0 0.0 - 6.0 % 09/28/2021 6:29 AM [facility] Basophil % 0.2 0.0 - 2.0 % 09/28/2021 6:29 AM [facility] Neutrophils Absolute 17.37(H) 1.60 - 7.00 10? 3 /uL 09/28/2021 6:29 AM [facility] Lymphocyte Absolute 0.63(L) 1.10 - 3.90 10? 3 /uL 09/28/2021 6:29 AM [facility] Monocytes Absolute 1.51(H) 0.26 - 1.07 10? 3 /uL 09/28/2021 6:29 AM [facility] Eosinophils Absolute 0.00 0.00 - 0.47 10? 3 /uL 09/28/2021 6:29 AM [facility] Basophils Absolute 0.03 0.00 - 0.08 10? 3 /uL 09/28/2021 6:29 AM [facility] Immature Granulocytes % 0.4 0.0 - 1.0 % 09/28/2021 6:29 AM [facility] Immature Granulocytes Absolute 0.08 09/28/2021 6:29 AM [facility] Blood BLOOD SPECIMEN / Unknown Venipuncture / Unknown 09/28/2021 6:14 AM CDT 09/28/2021 6:20 AM CDT Darrell Gomez MD LAB - HEMATOLOGY ORD ERABLES [facility] [address] [place] [address], [facility] [phone] * XR CHEST 1VW PORTABLE (09/28/2021 4:41 [...] prior CT. Dictated by Donald Ramos MD (presidential helicopter crew chief). Dr. JHON Connor MD have personally reviewed [...] on priorCT. Dictated by Donald Ramos MD (presidential helicopter crew chief). Dr. JHON Connor MD have personally reviewed and interpreted this examination/study. This report was electronically signed by JHON LEBLANC MD on 09/28/2021 2:49 PM . Dar Kilpatrick MD DIAGNOSTIC IMAGING ORDERABLES * (ABNORMAL) GLUCOSE - POINT OF CARE (09/28/2021 3:55 AM CDT) Glucose WB/POC 135(H) 70 - 115 mg/dL 09/28/2021 3:59 AM CDT [facility] Specimen Type Arterial 09/28/2021 3:59 AM CDT [facility] Blood BLOOD SPECIMEN / Unknown 09/28/2021 3:55 AM CDT 09/28/2021 3:59 AM CDT Dar Kilpatrick MD LAB - POINT OF CAR E ORDERABLES [facility] [address] [place] [address], [facility] [phone] * (ABNORMAL) HEMOGLOBIN A1C (09/28/2021 3:55 AM CDT) Hemoglobin A1c 5.9(H) <=5.6 % 09/28/2021 9:03 AM CDT [facility] Estimated Average Glucose 123 mg/dL 09/28/2021 9:03 AM CDT [facility] Comment: HbA1c Interpretation: Normal : < 5.7% Pre-diabetes: 5.7-6.4% Diabetes: Equal to or greater than 6.5% Test results diagnostic of diabetes should be repeated for confirmation. Treatment target values recommended by ADA and other clinical organizations should be used to evaluate metabolic control in patients. Reference: [place] [employer], Standards of Care in Diabetes [...] - CHEMISTRY DANIAL DUPREE Performing Organization Address City/[facility]/ZIP Co de Phone Number [facility] [address] [place] [address], [place] [phone] * (ABNORMAL) GLUCOSE - POINT OF CARE (09/28/2021 2:13 AM CDT) Glucose WB/POC 126(H) 70 - 115 mg/dL 09/28/2021 2:18 AM CDT [facility] Specimen Type Arterial 09/28/2021 2:18 AM CDT [facility] Blood BLOOD SPECIMEN / Unknown 09/28/2021 2:13 AM CDT 09/28/2021 2:18 AM CDT Dar Kilpatrick MD LAB - POINT OF CAR E ORDERABLES Performing Organization Address City/[facility]/ZIP Co de Phone Number [address] [address], [place] [phone] * BLOOD TYPE VERIFICATION (09/28/2021 2:08 AM CDT) ABO Rh O POS 09/28/2021 2:4 6 AM CDT [facility] Blood Bank BLOOD SPECIMEN / Unknown Lab Venipuncture / Unknown 09/28/2021 2:08 AM CDT 09/28/2021 2:18 AM CDT Dar Kilpatrick MD LAB - BLOOD BANK O RDERABLES [facility] [address] [place] [address], [place] [phone] * (ABNORMAL) CBC W AUTO DIFFERENTIAL (09/27/2021 10:55 PM CDT) WBC 14.9(H) 3.5 - 10.5 10? 3 /uL 09/27/2021 11:23 PM CDT [facility] RBC 3.28(L) 4.30 - 5.70 10? 6 /uL 09/27/2021 11:23 PM [facility] Hemoglobin 10.3(L) 12.0 - 17.6 g/dL 09/27/2021 11:23 PM [facility] Hematocrit 30.7(L) 35.2 - 51.7 % 09/27/2021 11:23 PM [facility] MCV 93.6 80.7 - 98.3 fL 09/27/2021 11:23 PM [facility] MCH 31.4 26.7 - 34.0 pg 09/27/2021 11:23 PM [facility] MCHC 33.6 30.8 - 35.9 g/dL 09/27/2021 11:23 PM [facility] Platelet Count 148(L) 150 - 400 10? 3 /uL 09/27/2021 11:23 PM [facility] RDW-SD 47.8 36.0 - 50.0 fL 09/27/2021 11:23 PM [facility] RDW-CV 14.0 11.2 - 14.8 % 09/27/2021 11:23 PM [facility] MPV 9.9 9.4 - 12.9 fL 09/27/2021 11:23 PM [facility] nRBC Absolute 0.00 0 10? 3 /uL 09/27/2021 11:23 PM [facility] nRBC Auto 0.0 0 /100 WBC 09/27/2021 11:23 PM [facility] Neutrophils % 85.0(H) 35.0 - 70.0 % 09/27/2021 11:23 PM [facility] Lymphocytes % 8.3(L) 20.0 - 43.0 % 09/27/2021 11:23 PM [facility] Monocytes % 5.2 5.0 - 13.0 % 09/27/2021 11:23 PM [facility] Eosinophils % 0.5 0.0 - 6.0 % 09/27/2021 11:23 PM [facility] Basophil % 0.3 0.0 - 2.0 % 09/27/2021 11:23 PM [facility] Neutrophils Absolute 12.68(H) 1.60 - 7.00 10? 3 /uL 09/27/2021 11:23 PM CDT [facility] Lymphocyte Absolute 1.24 1.10 - 3.90 10? 3 /uL 09/27/2021 11:23 PM CDT [facility] Monocytes Absolute 0.77 0.26 - 1.07 10? 3 /uL 09/27/2021 11:23 PM CDT [facility] Eosinophils Absolute 0.07 0.00 - 0.47 10? 3 /uL 09/27/2021 11:23 PM CDT [facility] Basophils Absolute 0.04 0.00 - 0.08 10? 3 /uL 09/27/2021 11:23 PM CDT [facility] Immature Granulocytes % 0.7 0.0 - 1.0 % 09/27/2021 11:23 PM CDT [facility] Immature Granulocytes Absolute 0.10 09/27/2021 11:23 PM CDT [facility] Blood BLOOD SPECIMEN / Unknown Venipuncture / Unknown 09/27/2021 10:55 PM CDT 09/27/2021 11:06 PM CDT Darrell Gomez MD LAB - HEMATOLOGY ORD ERABLES [address] [address], [facility] [phone] * PHOSPHORUS BLOOD (09/27/2021 10:55 PM CDT) Phosphorus 3.9 2.8 - 5.1 mg/dL 09/27/2021 11:36 PM CDT [facility] Blood BLOOD SPECIMEN / Unknown Venipuncture / Unknown 09/27/2021 10:55 PM CDT 09/27/2021 11:05 PM CDT Dar Kilpatrick MD LAB - CHEMISTRY OR DERABLES [address] [address], [facility] [phone] * MAGNESIUM BLOOD (09/27/2021 10:55 PM CDT) Magnesium 1.7 1.6 - 2.6 mg/dL 09/27/2021 11:36 PM [facility] Blood BLOOD SPECIMEN / Unknown Venipuncture / Unknown 09/27/2021 10:55 PM CDT 09/27/2021 11:05 PM CDT Dar Kilpatrick MD LAB - CHEMISTRY OR DERABLES Performing Organization Address [facility]/ZIP Co de Phone Number [facility] [address] [place] [address], [facility] [phone] * (ABNORMAL) BASIC METABOLIC PANEL (CALCIUM TOTAL) (09/27/2021 10:55 PM CDT) BUN 12 7 - 26 mg/dL 09/27/2021 11:36 PM [facility] Creatinine 1.56(H) 0.71 - 1.16 mg/dL 09/27/2021 11:36 PM [facility] Sodium 139 136 - 145 mmol/L 09/27/2021 11:36 PM [facility] Potassium 5.0(H) 3.5 - 4.5 mmol/L 09/27/2021 11:36 PM [facility] Chloride 113(H) 98 - 107 mmol/L 09/27/2021 11:36 PM [facility] CO2 21(L) 22 - 29 mmol/L 09/27/2021 11:36 PM [facility] Glucose 112 70 - 115 mg/dL 09/27/2021 11:36 PM [facility] Calcium 8.0(L) 8.4 - 10.2 mg/dL 09/27/2021 11:36 PM [facility] Anion Gap 10 8 - 18 09/27/2021 11:36 PM [facility] BUN/Creatinine Ratio 8 7 - 23 09/27/2021 11:36 PM [facility] Osmolality Calculated 289 270 - 300 mOsm/kg 09/27/2021 11:36 PM [facility] eGFR by CKD-EPI 58(L) >=90 mL/min/1.7 3 m2 09/27/2021 11:36 PM [facility] Blood BLOOD SPECIMEN / Unknown Venipuncture / Unknown 09/27/2021 10:55 PM CDT 09/27/2021 11:05 PM T Dar Kilpatrick MD LAB - CHEMISTRY OR DERABLES [facility] [address] [place] [address], [facility] [phone] * (ABNORMAL) BLOOD GASES ART + COOX PANEL (09/27/2021 10:55 PM CDT) pH Arterial 7.28(L) 7.35 - 7.45 pH 09/27/2021 11:13 PM [facility] pO2 Arterial 331(H) 80 - 100 mmHg 09/27/2021 11:13 PM [facility] pCO2 Arterial 44 35 - 45 mmHg 11:13 PM [facility] HCO3 Arterial 21 20 - 30 mmol/l 09/27/2021 11:13 PM [facility] BE Arterial -5.8(L) -2.0 - 2.0 mmol/L 09/27/2021 11:13 PM [facility] Oxyhemoglobin Arterial 96.7 % 09/27/2021 11:13 PM [facility] Dexoyhemoglobin (HHB) % 0.3 % 09/27/2021 11:13 PM [facility] Methemoglobin <0.8 0.0 - 2.0 % 09/27/2021 11:13 PM [facility] Carboxyhemoglobin 2.5(H) 0.0 - 2.0 % 2021 11:13 PM [facility] O2 Content Arterial 15.2 Interpret within clinical context mg/dL 09/27/2021 11:13 PM [facility] Hemoglobin by COOX 10.5(L) 12.0 - 15.6 g/dL 09/27/2021 11:13 PM [facility] O2 Saturation Arterial 100 90 - 100 % 09/27/2021 11:13 PM [facility] FI O2 Arterial 100.0 % 09/27/2021 11:13 PM CDT [facility] Blood, arterial ARTERIAL BLOOD SPECIMEN / Unknown Arterial Puncture / Unknown 09/27/2021 10:55 PM CDT 09/27/2021 11:04 PM CDT Narrative [facility] - 09/27/2021 11:13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
--- OUTSIDE RECORDS SUMMARY | 2024-03-26 07:06 | XMS_ITS | Encounter Summary ---
Author Organization [facility] Healthcare Address [address] [place] [address] Care Team Providers Care Topline Beading Machine Tender Name Role Phone Cristobal Agustin MD Primary Care Provider Reason for Visit * Reason Comments PT Treatment * Physical Therapy (Routine) - Closed Specialty Diagnoses / Procedures Referred By Contac t Referred To Contact Physical Therapy Diagnoses Paraplegia, unspecified (HCC) Cristobal Agutsin MD [address] [place] [place] [address] Phone: tel: fax: [facility] OP Physical Therapy [address] [place] [address] Phone: tel: fax: Referral ID Status Reason Start Date Expiration Date V isits Requested Visits Authorized [id number] Closed Evaluate and Treat 08/27/2022 03/13/2023 6 99 Encounter Details Date Type Department Care Team (Late st Contact Info) Description 10/28/2022 10:45 AM CDT Therapy 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 Ball press ups over head, [...] progress towards functional goals. Kimberlee Pack PTA [facility] Services ATTENTION PHYSICIAN If you are [...] Primary documented in this encounter Care Teams Topline Beading Machine Tender Relationship Specialty Start Date End Date Cristobal Agustin MD PCP - General Gastroenterology 03/26/22 documented as of this encounter
--- OUTSIDE RECORDS SUMMARY | 2024-03-26 07:06 | XMS_ITS | Encounter Summary ---
Author Organization [facility] Healthcare Address [address] [place] [address] Care Team Providers Care Single Needle Operator Name Role Phone Cristobal Agustin MD Primary Care Provider Reason for Visit * Reason Comments PT Progress Note * Physical Therapy (Routine) - Closed Specialty Diagnoses / Procedures Referred By Contac t Referred To Contact Physical Therapy Diagnoses Paraplegia, unspecified (HCC) Cristobal Agustin MD [address] [place] [address] Phone: tel: fax: [facility] OP Physical Therapy [address] [place] [address] Phone: tel: fax: Referral ID Status Reason Start Date Expiration Date V isits Requested Visits Authorized [id number] Closed Evaluate and Treat 08/27/2022 03/13/2023 6 99 Encounter Details Date Type Department Care Team (Late st Contact Info) Description 11/02/2022 11:00 AM CDT Therapy [facility] OP Physical Therapy [address] [place] [address] Augustina Au, SHIMON Paraplegia, unspecified (HCC) [...] on file 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 Ball press ups over head, single [...] transfers without sliding board Progress Note/Re-Cert [facility] 11-02-22 * Augustina Au, PT - 11/02/2022 [...] reporting continued difficulty with getting through to [employer] on the phone. He states he has left several messages and no one has ever called him back. PT called and left a message as well. Pain today is 4/10. 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 Objective: Objective Measurement/Observation: Improved strength of core [...] HEP given: pt given information to contact [employer]. 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 Services ATTENTION PHYSICIAN If you [...] (HCC) documented in this encounter Care Teams Single Needle Operator Relationship Specialty Start Date End Date Cristobal Agustin MD PCP - General Gastroenterology 03/26/22 documented as of this encounter
--- OUTSIDE RECORDS SUMMARY | 2024-03-26 07:06 | XMS_ITS | Encounter Summary ---
Author Organization [facility] Healthcare Address [address] [place] [address] Care Team Providers Care Music Instructor Name Role Phone Cristobal Agustin MD Primary Care Provider Reason for Visit * Reason Comments PT Treatment * Physical Therapy (Routine) - Closed Specialty Diagnoses / Procedures Referred By Contac t Referred To Contact Physical Therapy Diagnoses Paraplegia, unspecified (HCC) Cristobal Agustin MD [address] [place] [address] Phone: tel: fax: [facility] OP Physical Therapy [address] [place] [address] Phone: tel: fax: Referral ID Status Reason Start Date Expiration Date V isits Requested Visits Authorized [id number] Closed Evaluate and Treat 08/27/2022 03/13/2023 6 99 Encounter Details Date Type Department Care Team (Late st Contact Info) Description 09/24/2022 10:00 AM CDT Therapy [facility] OP Physical Therapy [address] [place] [address] Ashley Jones PTA Paraplegia, unspecified (HCC) [...] on file 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 Pt plans to rock picker medication after PTtreatment. Pain today is 9/10 [...] progress towards functional goals. Ashley Jones PTA [facility] Services ATTENTION PHYSICIAN If you are [...] and revised). 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
--- OUTSIDE RECORDS SUMMARY | 2024-03-26 07:06 | XMS_ITS | Encounter Summary ---
Author Organization [facility] Healthcare Address [address] [place] [address] Care Team Providers Care Wet Suit Gluer Name Role Phone Cristobal Agustin MD Primary Care Provider Reason for Visit * Reason Comments PT Treatment * Physical Therapy (Routine) - Closed Specialty Diagnoses / Procedures Referred By Contac t Referred To Contact Physical Therapy Diagnoses Paraplegia, unspecified (HCC) Cristobal Agustin MD [address] [place] [address] Phone: tel: fax: [facility] OP Physical Therapy [address] [place] [address] Phone: tel: fax: Referral ID Status Reason Start Date Expiration Date V isits Requested Visits Authorized [id number] Closed Evaluate and Treat 08/27/2022 03/13/2023 6 99 Encounter Details Date Type Department Care Team (Late st Contact Info) Description 11/12/2022 8:30 AM CDT Therapy [facility] OP Physical Therapy [address] [place] [address] Ashley Jones PTA Paraplegia, unspecified (HCC) [...] on file 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 Gender Identity Not on file Sexual Orientation Not on file documented as of this encounter Progress Notes * Ashley Jones, SURG NURSE - 11/12/2022 8:30 AM CDT ICD-9-CM ICD-10-CM [...] PROGRESSING 11-02-22 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 Ashley Jones PTA [facility] ATTENTION PHYSICIAN If you are unable [...] Primary documented in this encounter Care Teams Wet Suit Gluer Relationship Specialty Start Date End Date Cristobal Agustin MD PCP - General Gastroenterology 03/26/22 documented as of this encounter
--- OUTSIDE RECORDS SUMMARY | 2024-03-26 07:06 | XMS_ITS | Encounter Summary ---
Author Organization [facility] Address [address] [place] [address]. [place], [place] [id number] [place] [address] Care Team Providers Care Strapping Machine Operator Name Role Phone Ezra Peralta Primary [...] on filedocumented in this encounter Care Teams Strapping Machine Operator Relationship Specialty Start Date End Date Ezra Peralta PA PCP - General PHYSICIAN MANAGER CULINARY 12/20/21 documented as of this encounter
--- OUTSIDE RECORDS SUMMARY | 2024-03-26 07:06 | XMS_ITS | Encounter Summary ---
Author Organization [facility] Healthcare Address [address] [place] [address] Care Team Providers Care Event Decorator Name Role Phone Cristobal Agustin MD Primary Care Provider Reason for Visit * Reason Comments PT Treatment * Physical Therapy (Routine) - Closed Specialty Diagnoses / Procedures Referred By Contac t Referred To Contact Physical Therapy Diagnoses Paraplegia, unspecified (HCC) Cristobal Agustin MD [address] [place] [address] Phone: tel: fax: [facility] OP Physical Therapy [address] [place] [address] Phone: tel: fax: Referral ID Status Reason Start Date Expiration Date V isits Requested Visits Authorized [id number] Closed Evaluate and Treat 08/27/2022 03/13/2023 6 99 Encounter Details Date Type Department Care Team (Late st Contact Info) Description 10/15/2022 10:45 AM CDT Therapy [facility] OP Physical Therapy [address] [place] [address] Jerson Vick, KNIFE CUTTER Paraplegia, complete (HCC) (Primary Dx) Social History Tobacco Use Types Packs/Day Years Used Date Smoking Tobacco: Every Day Cigarettes Smokeless Tobacco: Never PHQ-2 Answer Date Recorded PHQ-2 Total Score (If total score is 3 or more points, staff should administer the PHQ-9) 2 04/27/2022 Sex and Gender Information Value Date Recorded Sex Assigned at Not on file 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 to reading instructor // bars with Min A for [...] head, press out, diagnols, and round about [place] ball around 10x, diagonals Arms crossed at [...] Short sitting pt falls forward someone must reading instructor front. Ball press ups over head, [...] today transfers without sliding board Progress Note/Re-Cert [facility] * Jerson Vick PTA - 10/15/2022 10:45 [...] pain and able to decrease the pain. KNIFE CUTTER didnot have an extra set of hands. [...] in order to progress towards functional goals. [facility] ATTENTION PHYSICIAN If you are unable [...] Primary documented in this encounter Care Teams Event Decorator Relationship Specialty Start Date End Date Cristobal Agustin MD PCP - General Gastroenterology 03/26/22 documented as of this encounter
--- OUTSIDE RECORDS SUMMARY | 2024-03-26 07:06 | XMS_ITS | Encounter Summary ---
Author Organization [facility] Healthcare Address [address] [place] [address] Care Team Providers Care University Controller Name Role Phone Cristobal Agustin MD Primary Care Provider Reason for Visit * Reason Comments PT Treatment * Physical Therapy (Routine) - Closed Specialty Diagnoses / Procedures Referred By Contac t Referred To Contact Physical Therapy Diagnoses Paraplegia, unspecified (HCC) Cristobal Agustin MD [address] [place] [address] Phone: tel: fax: [facility] OP Physical Therapy [address] [place] [address] Phone: tel: fax: Referral ID Status Reason Start Date Expiration Date V isits Requested Visits Authorized [id number] Closed Evaluate and Treat 08/27/2022 03/13/2023 6 99 Encounter Details Date Type Department Care Team (Late st Contact Info) Description 09/29/2022 10:30 AM CDT Therapy [facility] OP Physical Therapy [address] [place] [address] Ashley Jones PTA Paraplegia, unspecified (HCC) [...] on file 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 to product applications engineer // bars with Min A for [...] progress towards functional goals. Ashley Jones PTA [facility] ATTENTION PHYSICIAN If you are unable to [...] Primary documented in this encounter Care Teams University Controller Relationship Specialty Start Date End Date Cristobal Agustin MD PCP - General Gastroenterology 03/26/22 documented as of this encounter
--- OUTSIDE RECORDS SUMMARY | 2024-03-26 07:06 | XMS_ITS | Encounter Summary ---
Author Organization [facility] Healthcare Address [address] [place] [address] Care Team Providers Care Butcher Chicken And Fish Name Role Phone Cristobal Agustin MD Primary Care Provider Encounter Details Date Type Department Care Team (Late st Contact Info) Description 11/17/2022 Documentation [facility] OP Physical Therapy [facility] [address] [address] Cynthia Salvador, PT Social History Tobacco Use Types Packs/Day Years Used Date Smoking Tobacco: Every Day Cigarettes Smokeless Tobacco: Never PHQ-2 Answer Date Recorded PHQ-2 Total Score (If total score is 3 or more points, staff should administer the PHQ-9) 2 04/27/2022 Sex and Gender Information Value Date Recorded Sex Assigned at Not on file 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 Physician Signature: Date: Physician's Printed Name: documented in this encounter Plan of Treatment Not on file documented as of this encounter Visit Diagnoses Not on filedocumented in this encounter Care Teams Butcher Chicken And Fish Relationship Specialty Start Date End Date Cristobal Agustin MD PCP - General Gastroenterology 03/26/22 documented as of this encounter
--- OUTSIDE RECORDS SUMMARY | 2024-03-26 07:06 | XMS_ITS | Encounter Summary ---
Author Organization [facility] Healthcare Address [address] [place] [address] Care Team Providers Care School Year Nanny Name Role Phone Cristobal Agustin MD Primary Care Provider Encounter Details Date Type Department Care Team (Late st Contact Info) Description 11/17/2022 Documentation [facility] OP Physical Therapy [facility] [address] [address] Cynthia Salvador, PT Social History Tobacco Use Types Packs/Day Years Used Date Smoking Tobacco: Every Day Cigarettes Smokeless Tobacco: Never PHQ-2 Answer Date Recorded PHQ-2 Total Score (If total score is 3 or more points, staff should administer the PHQ-9) 2 04/27/2022 Sex and Gender Information Value Date Recorded Sex Assigned at Not on file 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 Gender Identity Not on file Sexual Orientation Not on file documented as of this encounter Progress Notes * Cynthia Salvador, PT - 11/17/2022 1:06 PM CDT RE-SENDING CONTINUATION ORDER FOR PHYSICAL THERAPY AND STANDING FRAME TO ORDERING PROVIDER FOR SIGNATURE THROUGH [employer] SYSTEM, 2ND ATTEMPT documented in this encounter Plan of Treatment Not on file documented as of this encounter Visit Diagnoses Not on filedocumented in this encounter Care Teams School Year Nanny Relationship Specialty Start Date End Date Cristobal Agustin MD PCP - General Gastroenterology 03/26/22 documented as of this encounter
--- OUTSIDE RECORDS SUMMARY | 2024-03-26 07:06 | XMS_ITS | Encounter Summary ---
Author Organization [facility] Healthcare Address [address] [place] [address] Care Team Providers Care Fish Receiver Name Role Phone Cristobal Agustin MD Primary Care Provider Encounter Details Date Type Department Care Team (Late st Contact Info) Description 09/27/2022 Documentation [facility] OP Physical Therapy [address] [place] [address] Ashley Jones PTA Social History Tobacco Use Types Packs/Day Years Used Date Smoking Tobacco: Every Day Cigarettes Smokeless Tobacco: Never PHQ-2 Answer Date Recorded PHQ-2 Total Score (If total score is 3 or more points, staff should administer the PHQ-9) 2 04/27/2022 Sex and Gender Information Value Date Recorded Sex Assigned at Not on file 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
--- OUTSIDE RECORDS SUMMARY | 2024-03-26 07:06 | XMS_ITS | Encounter Summary ---
Author Organization [facility] Healthcare Address [address] [place] [address] Care Team Providers Care Insulation Machine Operator Name Role Phone Cristobal Agustin MD Primary Care Provider Reason for Visit * Diagnostic Imaging (Routine) - Closed Specialty Diagnoses / Procedures Referred By Contac t Referred To Contact Diagnoses Other difficulties with micturition Procedures US Kidney Complete US Renal Limited Eder Gibson MD [address] [place] [address] Phone: tel: fax: [address] [phone] Referral ID Status Reason Start Date Expiration Date Visits Re quested Visits Authorized [id number] Closed 02/23/2023 03/24/2024 1 1 Encounter Details Date Type Department Care Team (Latest Contact Info) Description 03/01/2023 3:20 PM RN DIALYSIS - 03/01/2023 11:59 PM RN DIALYSIS Hospital Encounter [address] [address] Other difficulties with micturition Discharge [...] on file Legal Sex Male 7:46 AM RN DIALYSIS Gender Identity Not on file Sexual Orientation [...] Read Routine (OP Routine) 03/01/2023 3:42 PM RN DIALYSIS Other difficulties with micturition documented in this encounter Results * US Kidney Complete (03/01/2023 3:42 PM RN DIALYSIS) Anatomical Region Laterality Modality Kidney N/A Ultrasound 03/02/2023 9:13 PM RN DIALYSIS Narrative 03/02/2023 9:16 PM RN DIALYSIS EXAM DESCRIPTION: US KIDNEY COMPLETE REASON FOR [...] D: ??03/02/2023 9:16 PM T: Report ID: [id number] Reading Location: ??[id number] Procedure Note Mandy Bourgeois DO - 03/02/2023 [...] Mandy Bourgeois D.O. AC T: Report ID: [id number] Reading Location: [id number] us Eder Gibson MD IMG US PROCEDURES Final Re sult documented in this encounter Visit Diagnoses Diagnosis Other difficulties with micturition documented in this encounter Care Teams Insulation Machine Operator Relationship Specialty Start Date End Date Cristobal Agustin MD PCP - General Gastroenterology 03/26/22 documented as of this encounter
--- OUTSIDE RECORDS SUMMARY | 2024-03-26 07:06 | XMS_ITS | Encounter Summary ---
Author Organization [facility] Healthcare Address [address] [place] [address] Care Team Providers Care Commanding Officer Homicide Squad Name Role Phone Cristobal Agustin MD Primary Care Provider Reason for Visit * Reason Comments PT Treatment * Physical Therapy (Routine) - Closed Specialty Diagnoses / Procedures Referred By Contac t Referred To Contact Physical Therapy Diagnoses Paraplegia, unspecified (HCC) Cristobal Agustin MD [address] [place] [address] Phone: tel: fax: [facility] OP Physical Therapy [address] [place] [address] Phone: tel: fax: Referral ID Status Reason Start Date Expiration Date V isits Requested Visits Authorized [id number] Closed Evaluate and Treat 08/27/2022 03/13/2023 6 99 Encounter Details Date Type Department Care Team (Late st Contact Info) Description 10/26/2022 11:30 AM CDT Therapy [facility] OP Physical Therapy [address] [place] [address] Dre Naiper PTA Paraplegia, unspecified (HCC) (Primary Dx) Social History Tobacco Use Types Packs/Day Years Used Date Smoking Tobacco: Every Day Cigarettes Smokeless Tobacco: Never PHQ-2 Answer Date Recorded PHQ-2 Total Score (If total score is 3 or more points, staff should administer the PHQ-9) 2 04/27/2022 Sex and Gender Information Value Date Recorded Sex Assigned at Not on file 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 to testing coordinator // bars with Min A for [...] head, press out, diagnols, and round about Issue ball [id number], diagonals 4# ball over head, press out, [...] Short sitting pt falls forward someone must testing coordinator front. Ball press ups over head, single [...] Miller 1985 ICD-9-CM ICD-10-CM 1. Paraplegia, unspecified ([facility]) 344.1 G82.20 Subjective: Pt reported that he [...] NT HEP given: NT Patient education: discussed [employer] gym in [place] for patient to research for possible gym [...] progress towards functional goals. Dre Napier PTA [facility] ATTENTION PHYSICIAN If [...] Primary documented in this encounter Care Teams Commanding Officer Homicide Squad Relationship Specialty Start Date End Date Cristobal Agustin MD PCP - General Gastroenterology 03/26/22 documented as of this encounter
--- OUTSIDE RECORDS SUMMARY | 2024-03-26 07:06 | XMS_ITS | Encounter Summary ---
Author Organization [facility] Healthcare Address [address] [place] [address] Care Team Providers Care Pari Mutuel Clerk Name Role Phone Crisotbal Agustin MD Primary Care Provider Reason for Visit * Reason Comments PT Treatment * Physical Therapy (Routine) - Closed Specialty Diagnoses / Procedures Referred By Contac t Referred To Contact Physical Therapy Diagnoses Paraplegia, unspecified (HCC) Cristobal Agustin MD [address] [place] [address] Phone: tel: fax: [facility] OP Physical Therapy [address] [place] [address] Phone: tel: fax: Referral ID Status Reason Start Date Expiration Date V isits Requested Visits Authorized [id number] Closed Evaluate and Treat 08/27/2022 03/13/2023 6 99 Encounter Details Date Type Department Care Team (Late st Contact Info) Description 10/22/2022 10:45 AM CDT Therapy [facility] OP Physical Therapy [address] [place] [address] Dre Napier PTA Paraplegia, unspecified (HCC) [...] on file Legal Sex Male 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 to instruction assistant principal // bars with Min A for knee [...] head, press out, diagnols, and round about [place] ball around 10x, diagonals4# ball over head, press out, diagnols, and round about Arms crossed at chest for flexion/extension Forgot, did it on mat in short sitting and long sitting Core Strengthening -half bosu sit ups -pertubations in all directions -pelvic tilts -ta bracing with resistance from therapist Long sitting, sit ups 10x with assist. Short sitting pt falls forward someone must instruction assistant principal front. Ball press ups over head, single [...] today transfers without sliding board Progress Note/Re-Cert [facility] * Dre Napier PTA - 10/22/2022 10:45 [...] progress towards functional goals. Dre Napier PTA [facility] ATTENTION PHYSICIAN If you [...] Primary documented in this encounter Care Teams Pari Mutuel Clerk Relationship Specialty Start Date End Date Cristobal Agustin MD PCP - General Gastroenterology 03/26/22 documented as of this encounter
--- OUTSIDE RECORDS SUMMARY | 2024-03-26 07:06 | XMS_ITS | Encounter Summary ---
Author Organization [facility] Healthcare Address [address] [place] [address] Care Team Providers Care Client Support Associate Name Role Phone Cristobal Agustin MD Primary Care Provider Reason for Visit * Reason Comments PT Treatment * Physical Therapy (Routine) - Closed Specialty Diagnoses / Procedures Referred By Contac t Referred To Contact Physical Therapy Diagnoses Paraplegia, unspecified (HCC) Cristobal Agustin MD [address] [place] [address] Phone: tel: fax: [facility] OP Physical Therapy [address] [place] [address] Phone: tel: fax: Referral ID Status Reason Start Date Expiration Date V isits Requested Visits Authorized [id number] Closed Evaluate and Treat 08/27/2022 03/13/2023 6 99 Encounter Details Date Type Department Care Team (Late st Contact Info) Description 10/08/2022 10:00 AM CDT Therapy [facility] OP Physical Therapy [address] [place] [address] Augustina Au, PT Paraplegia, complete (HCC) [...] on file Legal Sex Male 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 to meeting manager // bars with Min A for [...] Short sitting pt falls forward someone must meeting manager front. Ball press ups over head, [...] today transfers without sliding board Progress Note/Re-Cert [facility] * Augustina Au, PT - 10/08/2022 10:00 [...] at home. Patient education:pt given information on jellyfish in [place]. Also reviewed information about [employer]. Assessment: Patient tolerated today's treatment without incident. Pt does not an extra assistant teacher primary for short sitting activities and supported standing [...] the following modification on next visit: ADDITIONAL DELIVERY LEAD () and possible use of overhead track system for safety. Therapy will continue to address these impairments in order to progress towards functional goals. Augustina Au, PT [facility] ATTENTION PHYSICIAN If [...] Primary documented in this encounter Care Teams Client Support Associate Relationship Specialty Start Date End Date Cristobal Agustin MD PCP - General Gastroenterology 03/26/22 documented as of this encounter
--- OUTSIDE RECORDS SUMMARY | 2024-03-26 07:06 | XMS_ITS | Clinical Summary ---
Author Organization [facility] Address [address] [place] [address] Care Team Providers Care Video Network Engineer Name Role Phone Cristobal Agustin MD Primary [...] on file Legal Sex Male 7:46 AM POOL HALL INSPECTOR Gender Identity Not on file Sexual Orientation Not on file Obstetrics History Last Filed Vital Signs Vital Sign Reading Time Taken Comments Blood Pressure 130/84 04/27/2022 8:43 AM POOL HALL INSPECTOR Pulse 81 04/27/2022 8:43 AM POOL HALL INSPECTOR Temperature 36.8 ??C (98.2 ??F) 04/23/2020 8:10 AM CS T Respiratory Rate - - Oxygen Saturation 100% 04/23/2020 8:10 AM POOL HALL INSPECTOR Inhaled Oxygen Concentration - - Weight 76.2 kg (168 lb) 04/27/2022 8:43 AM POOL HALL INSPECTOR Height 175.3 cm (5' 9) 04/27/2022 8:43 AM POOL HALL INSPECTOR Body Mass Index 24.81 04/27/2022 8:43 AM POOL HALL INSPECTOR Plan of Treatment Health Maintenance Due Date [...] to complete this topic Insurance [employer] [facility] [employer] [facility] Member Subscriber Plan / Payer (Ef fective 2020-Present) Name:Solo Miller Relation to Subscriber:Self Name:Solo Mliler Payer ID:1 (NAIC) Type:MEDICAID RISK OTHER Address: [address] [place] [id number] [employer] [facility] A[employer] [facility] Care Teams Video Network Engineer Relationship Specialty Start Date End Date Cristobal Agustin MD PCP - General Gastroenterology 03/26/22
--- OUTSIDE RECORDS SUMMARY | 2024-03-26 07:06 | XMS_ITS | Encounter Summary ---
Author Organization [facility] Healthcare Address [address] [place] [address] Care Team Providers Care Soaker Helper Name Role Phone Cristobal Agustin MD Primary Care Provider Encounter Details Date Type Department Care Team (Late st Contact Info) Description 09/22/2022 Documentation [facility] OP Physical Therapy [address] [place] [phone] Ashley Jones PTA Social History Tobacco Use Types Packs/Day Years Used Date Smoking Tobacco: Every Day Cigarettes Smokeless Tobacco: Never PHQ-2 Answer Date Recorded PHQ-2 Total Score (If total score is 3 or more points, staff should administer the PHQ-9) 2 04/27/2022 Sex and Gender Information Value Date Recorded Sex Assigned at Not on file 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
--- OUTSIDE RECORDS SUMMARY | 2024-03-26 07:06 | XMS_ITS | Encounter Summary ---
Author Organization [facility] Healthcare Address [address] [place] [address] Care Team Providers Care Slot Shift Manager Name Role Phone Cristobal Agustin MD Primary Care Provider Reason for Visit * Reason Comments PT Treatment * Physical Therapy (Routine) - Closed Specialty Diagnoses / Procedures Referred By Contac t Referred To Contact Physical Therapy Diagnoses Paraplegia, unspecified (HCC) Cristobal Agustin MD [address] [place] [address] Phone: tel: fax: [facility] OP Physical Therapy [address] [place] [address] Phone: tel: fax: Referral ID Status Reason Start Date Expiration Date V isits Requested Visits Authorized [id number] Closed Evaluate and Treat 08/27/2022 03/13/2023 6 99 Encounter Details Date Type Department Care Team (Late st Contact Info) Description 11/26/2022 9:15 AM CDT Therapy [facility] OP Physical Therapy [address] [place] [address] Les Galdamez, LEG MAN Paraplegia, complete (HCC) (Primary Dx) Social History Tobacco Use Types Packs/Day Years Used Date Smoking Tobacco: Every Day Cigarettes Smokeless Tobacco: Never PHQ-2 Answer Date Recorded PHQ-2 Total Score (If total score is 3 or more points, staff should administer the PHQ-9) 2 04/27/2022 Sex and Gender Information Value Date Recorded Sex Assigned at Not on file Legal Sex Male 7:46 AM CALL OR CONTACT CENTRE TEAM LEADER Gender Identity Not on file Sexual Orientation Not on file documented as of this encounter Progress Notes * Les Galdamez, LEG MAN - 11/26/2022 9:15 AM CDT ICD-9-CM ICD-10-CM [...] PROGRESSING 11-02-22 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 to marinator // bars with Min A for knee [...] pt will follow up with appointments with [facility] and [employer] [employer] to pursue additional community [...] wall - Green TB Done and freedom it trainer Done with freedom it trainer today; Stander: ball resistance 4# ball over head, press out, diagnols, and round about 6# ball over head,press out, diagnols, and round about 6# ball over head, press out, diagnols, and round about 6# Ball overhead press, diagnols, chest press, round abouts NT time 6# Ball overhead press, diagnols, chest press, round abouts, catch with LEG MAN Performed without upper chest support strap NT [...] nu-step transfers without sliding board Progress Note/Re-Cert [facility] 11-02-22 * Les Galdamez, ÁNGEL - 11/26/2022 9:15 AM CDT Images from the original note were not included. Physical Therapy Visit/Daily Note 11/26/2022 Solo Miller 1985 ICD-9-CM ICD-10-CM 1. Paraplegia, complete ([facility]) 344.1 G82.21 Subjective: Pt reports he has [...] performing transfers independently. Pt performed UE exerciseson [place] it trainer and Nustep exercisers with LE supported [...] in order to progress towards functional goals. [facility] ATTENTION PHYSICIAN If you are unable [...] Primary documented in this encounter Care Teams Slot Shift Manager Relationship Specialty Start Date End Date Cristobal Agustin MD PCP - General Gastroenterology 03/26/22 documented as of this encounter
--- OUTSIDE RECORDS SUMMARY | 2024-03-26 07:06 | XMS_ITS | Encounter Summary ---
Author Organization [facility] Healthcare Address [address] [place] [address] Care Team Providers Care Undercutter Operator Name Role Phone Cristobal Agustin MD Primary Care Provider Reason for Visit * Reason Comments PT Treatment * Physical Therapy (Routine) - Closed Specialty Diagnoses / Procedures Referred By Contac t Referred To Contact Physical Therapy Diagnoses Paraplegia, unspecified (HCC) Cristobal Agustin MD [address] [place] [address] Phone: tel: fax: [facility] OP Physical Therapy [address] [place] [address] Phone: tel: fax: Referral ID Status Reason Start Date Expiration Date V isits Requested Visits Authorized [id number] Closed Evaluate and Treat 08/27/2022 03/13/2023 6 99 Encounter Details Date Type Department Care Team (Late st Contact Info) Description 10/19/2022 11:30 AM CDT Therapy [facility] OP Physical Therapy [address] [place] [address] Dre Napier PTA Paraplegia, unspecified (HCC) [...] on file 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 to hide cooking operator // bars with Min A for [...] head, press out, diagnols, and round about [place] ball around 10x, diagonals Arms crossed at chest for flexion/extension Forgot, did it on mat in short sitting and long sitting Core Strengthening -half bosu sit ups -pertubations in all directions -pelvic tilts -ta bracing with resistance from therapist Long sitting, sit ups 10x with assist. Short sitting pt falls forward someone must hide cooking operator front. Ball press ups over head, single [...] today transfers without sliding board Progress Note/Re-Cert [facility] * Dre Napier PTA - 10/19/2022 11:30 [...] progress towards functional goals. Dre Napier PTA [facility] ATTENTION PHYSICIAN If [...] Primary documented in this encounter Care Teams Undercutter Operator Relationship Specialty Start Date End Date Cristobal Agustin MD PCP - General Gastroenterology 03/26/22 documented as of this encounter
--- OUTSIDE RECORDS SUMMARY | 2024-03-26 07:06 | XMS_ITS | Encounter Summary ---
Author Organization [facility] Healthcare Address [address] [place] [address] Care Team Providers Care Superintendent Production Name Role Phone Cristobal Agustin MD Primary Care Provider Reason for Visit * Reason Comments PT Treatment * Physical Therapy (Routine) - Closed Specialty Diagnoses / Procedures Referred By Contac t Referred To Contact Physical Therapy Diagnoses Paraplegia, unspecified (HCC) Cristobal Agustin MD [address] [place] [address] Phone: tel: fax: [facility] OP Physical Therapy [address] [place] [address] Phone: tel: fax: Referral ID Status Reason Start Date Expiration Date V isits Requested Visits Authorized [id number] Closed Evaluate and Treat 08/27/2022 03/13/2023 6 99 Encounter Details Date Type Department Care Team (Late st Contact Info) Description 11/17/2022 9:00 AM CDT Therapy [facility] OP Physical Therapy [address] [place] [address] Priti Ramos, ÁNGEL Paraplegia, complete (HCC) [...] on file 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 Gender Identity Not on file Sexual Orientation Not on file documented as of this encounter Progress Notes * Priti Ramos, NURSE ASSISTANT - 11/17/2022 9:00 AM CDT ICD-9-CM ICD-10-CM [...] PROGRESSING 11-02-22 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 // bars with Min A for [...] pt will follow up with appointments with [facility] and [employer] to pursue additional community support [...] wall - Green TB Done and freedom corporate sales trainer Stander: ball resistance 4# ball over head, press out, diagnols, and round about 6# ball over head,press out, diagnols, and round about 6# ball over head, press out, diagnols, and round about 6# Ball overhead press, diagnols, chest press, round abouts NT time 6# Ball overhead press, diagnols, chest press, round abouts, catch with NURSE ASSISTANT Performed without upper chest support strap NT [...] nu-step transfers without sliding board Progress Note/Re-Cert [facility] 11-02-22 * Priti Ramos PTA - 11/17/2022 [...] while standing in the Stander used the [employer] corporate sales trainer. Patient girlfriend present for treatment. Specific [...] in order to progress towards functional goals. [facility] ATTENTION PHYSICIAN If you are unable [...] (HCC) documented in this encounter Care Teams Superintendent Production Relationship Specialty Start Date End Date Cristobal Agustin MD PCP - General Gastroenterology 03/26/22 documented as of this encounter
--- OUTSIDE RECORDS SUMMARY | 2024-03-26 07:06 | XMS_ITS | Encounter Summary ---
Author Organization [facility] Healthcare Address [address] [place] [address] Care Team Providers Care Planning Technician Name Role Phone Cristobal Agustin MD Primary Care Provider Encounter Details Date Type Department Care Team (Late st Contact Info) Description 10/05/2022 Plan of Care Documentation [facility] OP Physical Therapy [address] [place] [address] Social History Tobacco Use Types Packs/Day Years Used Date Smoking Tobacco: Every Day Cigarettes Smokeless Tobacco: Never PHQ-2 Answer Date Recorded PHQ-2 Total Score (If total score is 3 or more points, staff should administer the PHQ-9) 2 04/27/2022 Sex and Gender Information Value Date Recorded Sex Assigned at Not on file 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
--- OUTSIDE RECORDS SUMMARY | 2024-03-26 07:06 | XMS_ITS | Encounter Summary ---
Author Organization [facility] Healthcare Address [address] [place] [address] Care Team Providers Care Rug Hooker Name Role Phone Cristobal Agustin MD Primary Care Provider Reason for Visit * Reason Comments PT Treatment * Physical Therapy (Routine) - Closed Specialty Diagnoses / Procedures Referred By Contac t Referred To Contact Physical Therapy Diagnoses Paraplegia, unspecified (HCC) Cristobal Agustin MD [address] [place] [address] Phone: tel: fax: [facility] OP Physical Therapy [address] [place] [address] Phone: tel: fax: Referral ID Status Reason Start Date Expiration Date V isits Requested Visits Authorized [id number] Closed Evaluate and Treat 08/27/2022 03/13/2023 6 99 Encounter Details Date Type Department Care Team (Late st Contact Info) Description 11/05/2022 8:30 AM CDT Therapy [facility] OP Physical Therapy [address] [place] [address] Jerson Vick MUSEUM SECURITY CHIEF Paraplegia, unspecified (HCC) (Primary Dx) Social History Tobacco Use Types Packs/Day Years Used Date Smoking Tobacco: Every Day Cigarettes Smokeless Tobacco: Never PHQ-2 Answer Date Recorded PHQ-2 Total Score (If total score is 3 or more points, staff should administer the PHQ-9) 2 04/27/2022 Sex and Gender Information Value Date Recorded Sex Assigned at Not on file 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 Gender Identity Not on file Sexual Orientation Not on file documented as of this encounter Progress Notes * Jerson Vick, MUSEUM SECURITY CHIEF - 11/05/2022 8:30 AM CDT ICD-9-CM ICD-10-CM [...] PROGRESSING 11-02-22 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 to conditioning coach // bars with Min A for knee [...] pt will follow up with appointments with [employer] and [employer] to pursue additional community [...] head, press out, diagnols, and round about [place] ball [id number], diagonals 4# ball over head, press out, [...] Short sitting pt falls forward someone must conditioning coach front. Ball press ups over head, single [...] well. transfers without sliding board Progress Note/Re-Cert [facility] 11-02-22 * Jerson Vick PTA - 11/05/2022 [...] in order to progress towards functional goals. [facility] ATTENTION PHYSICIAN If you are unable [...] Primary documented in this encounter Care Teams Rug Hooker Relationship Specialty Start Date End Date Cristobal Agustin MD PCP - General Gastroenterology 03/26/22 documented as of this encounter
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
--- OUTSIDE RECORDS SUMMARY | 2024-03-26 07:06 | XMS_ITS | Encounter Summary ---
Author Organization [facility] Healthcare Address [address] [place] [address] Care Team Providers Care Blocker And Polisher Gold Wheel Name Role Phone Cristobal Agustin MD Primary Care Provider Reason for Visit * Reason Comments PT Progress Note * Physical Therapy (Routine) - Closed Specialty Diagnoses / Procedures Referred By Contac t Referred To Contact Physical Therapy Diagnoses Paraplegia, unspecified (HCC) Cristobal Agustin MD [address] [place] [address] Phone: tel: fax: [facility] OP Physical Therapy [address] [place] [address] Phone: tel: fax: Referral ID Status Reason Start Date Expiration Date V isits Requested Visits Authorized [id number] Closed Evaluate and Treat 08/27/2022 03/13/2023 6 99 Encounter Details Date Type Department Care Team (Late st Contact Info) Description 10/05/2022 9:00 AM CDT Therapy [facility] OP Physical Therapy [address] [place] [address] Augustina Au, SHIMON Paraplegia, complete (HCC) [...] file 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 Pt would benefit from having a manual w/c that has standing capabilities. The [employer] w/c Company is a resource for pt [...] for 8 weeks. Augustina Au, PT [facility] ATTENTION PHYSICIAN If you are [...] and revised). 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 to pasting machine operator // bars with Min A [...] indep transfers without sliding board Progress Note/Re-Cert [facility] documented in this encounter Plan of Treatment Not on file documented as of this encounter Visit Diagnoses Diagnosis Paraplegia, complete (HCC)- Primary documented in this encounter Care Teams Blocker And Polisher Gold Wheel Relationship Specialty Start Date End Date Cristobal Agustin MD PCP - General Gastroenterology 03/26/22 documented as of this encounter
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
--- OUTSIDE RECORDS SUMMARY | 2024-03-26 07:06 | XMS_ITS | Encounter Summary ---
Author Organization [facility] Healthcare Address [address] [place] [address] Care Team Providers Care Ortho Nurse Name Role Phone Cristobal Agustin MD Primary Care Provider Reason for Visit * Reason Comments PT Treatment * Physical Therapy (Routine) - Closed Specialty Diagnoses / Procedures Referred By Contac t Referred To Contact Physical Therapy Diagnoses Paraplegia, unspecified (HCC) Cristobal Agustin MD [address] [place] [address] Phone: tel: fax: [facility] OP Physical Therapy [address] [place] [address] Phone: tel: fax: Referral ID Status Reason Start Date Expiration Date V isits Requested Visits Authorized [id number] Closed Evaluate and Treat 08/27/2022 03/13/2023 6 99 Encounter Details Date Type Department Care Team (Late st Contact Info) Description 11/10/2022 8:30 AM CDT Therapy [facility] OP Physical Therapy [address] [place] [address] Soni Lai PTA Paraplegia, unspecified (HCC) [...] on file 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 Gender Identity Not on file Sexual Orientation Not on file documented as of this encounter Progress Notes * Soni Lai, DISPATCH CLERK - 11/10/2022 8:30 AM CDT ICD-9-CM ICD-10-CM [...] PROGRESSING 11-02-22 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 to inspector and clerk // bars with Min A for knee [...] pt will follow up with appointments with [facility] and [employer] to pursue additional community [...] head, press out, diagnols, and round about [place] ball [id number], diagonals 4# ball over head, press out, diagnols, and round about 6# ball over head, press out, diagnols, and round about 6# ball over head, press out, diagnols, and round about 6# Ball overheadpress, diagnols, chest press, round abouts NT time 6# Ball overhead press, diagnols, chest press, round abouts, catch with DISPATCH CLERK Performed without upper chest support strap Forgot, did it on mat in short sitting and long sitting NT Core Strengthening -half bosu sit ups -pertubations in all directions -pelvic tilts -ta bracing with resistance from therapist Long sitting, sit ups 10x with assist. Short sitting pt falls forward someone must inspector and clerk front. Ball press ups over head, single [...] nu-step transfers without sliding board Progress Note/Re-Cert [facility] 11-02-22 * Soni Lai PTA - 11/10/2022 [...] progress towards functional goals. Soni Lai PTA. [facility] ATTENTION PHYSICIAN If you are [...] (HCC) documented in this encounter Care Teams Ortho Nurse Relationship Specialty Start Date End Date Cristobal Agustin MD PCP - General Gastroenterology 03/26/22 documented as of this encounter
--- OUTSIDE RECORDS SUMMARY | 2024-03-26 07:06 | XMS_ITS | Encounter Summary ---
Author Organization [facility] Healthcare Address [address] [place] [address] Care Team Providers Care Gullet Slitter Name Role Phone Cristobal Agustin MD Primary Care Provider Encounter Details Date Type Department Care Team (Late st Contact Info) Description 11/24/2022 Documentation [facility] OP Physical Therapy [address] [place] [address] Ashley Jones PTA Social History Tobacco Use Types Packs/Day Years Used Date Smoking Tobacco: Every Day Cigarettes Smokeless Tobacco: Never PHQ-2 Answer Date Recorded PHQ-2 Total Score (If total score is 3 or more points, staff should administer the PHQ-9) 2 04/27/2022 Sex and Gender Information Value Date Recorded Sex Assigned at Not on file 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
--- OUTSIDE RECORDS SUMMARY | 2024-03-26 07:06 | XMS_ITS | Encounter Summary ---
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 12:25 AM [facility] Chloride 99 98 - 107 mmol/L 10/02/2021 12:25 AM [facility] CO2 30(H) 22 - 29 mmol/L 10/02/2021 12:25 AM [facility] Glucose 116(H) 70 - 115 mg/dL 10/02/2021 12:25 AM [facility] Calcium 8.6 8.4 - 10.2 mg/dL 10/02/2021 12:25 AM [facility] Anion Gap 13 8 - 18 10/02/2021 12:25 AM [facility] BUN/Creatinine Ratio 14 7 - 23 10/02/2021 12:25 AM [facility] Osmolality Calculated 290 270 - 300 mOsm/kg 10/02/2021 12:25 AM [facility] eGFR by CKD-EPI 64(L) >=90 mL/min/1.7 3 m2 10/02/2021 12:25 AM [facility] Blood BLOOD SPECIMEN / Unknown Venipuncture / Unknown 10/01/2021 11:33 PM CDT 10/01/2021 11:59 PM CDT Dar Kilpatrick MD LAB - CHEMISTRY OR DERABLES Performing Organization Address [facility] Co de Phone Number [facility] [address] [place] [address], [facility] [phone] * XR CHEST 1VW PORTABLE (10/01/2021 12:31 [...] is intact. Dictated by Donald Ramos MD (chairman president and chief executive officer). Dr. CHIP Connor M.D. have personally reviewed [...] is intact. Dictated by Donald Ramos MD (chairman president and chief executive officer). Dr. CHIP Connor M.D. have personally reviewed andinterpreted this examination/study. This report was electronically signed by CHIP HUNT M.D. on 10/01/2021 2:41 PM . Dar Kilpatrick MD DIAGNOSTIC IMAGING ORDERABLES * (ABNORMAL) CBC W/O DIFFERENTIAL (10/01/2021 5:50 AM CDT) WBC 8.5 3.5 - 10.5 10? 3 /uL 10/01/2021 6:21 AM [facility] RBC 2.63(L) 4.30 - 5.70 10? 6 /uL 10/01/2021 6:21 AM [facility] Hemoglobin 7.8(L) 12.0 - 17.6 g/dL 10/01/2021 6:21 AM [facility] Hematocrit 22.9(L) 35.2 - 51.7 % 10/01/2021 6:21 AM [facility] MCV 87.1 80.7 - 98.3 fL 10/01/2021 6:21 AM [facility] MCH 29.7 26.7 - 34.0 pg 10/01/2021 6:21 AM [facility] MCHC 34.1 30.8 - 35.9 g/dL 10/01/2021 6:21 AM [facility] Platelet Count 111(L) 150 - 400 10? 3 /uL 10/01/2021 6:21 AM [facility] RDW-SD 54.5(H) 36.0 - 50.0 fL 10/01/2021 6:21 AM [facility] RDW-CV 17.1(H) 11.2 - 14.8 % 10/01/2021 6:21 AM [facility] MPV 10.9 9.4 - 12.9 fL 10/01/2021 6:21 AM [facility] nRBC Absolute 0.04(H) 0 10? 3 /uL 10/01/2021 6:21 AM [facility] nRBC Auto 0.5(H) 0 /100 WBC 10/01/2021 6:21 AM [facility] Blood BLOOD SPECIMEN / Unknown Venipuncture / Unknown 10/01/2021 5:50 AM CDT 10/01/2021 6:10 AM [facility] Dar Kilpatrick MD LAB - HEMATOLOGY O RDERABLES [facility] [address] [place] [address], [facility] [phone] * (ABNORMAL) CALCIUM IONIZED WHOLE BLOOD (10/01/2021 5:09 AM CDT) Calcium Ionized 1.18 mmol/L 10/01/2021 5:21 AM CDT [facility] pH 7.50(H) 7.35 - 7.45 pH 10/01/2021 5:21 AM CDT [facility] Ionized Calcium pH Adjusted 1.23 1.19 - 1.34 mmol/L 10/01/2021 5:21 AM CDT [facility] Blood BLOOD SPECIMEN / Unknown Venipuncture / Unknown 10/01/2021 5:09 AM CDT 10/01/2021 5:13 AM CDT Dar Kilpatrick MD LAB - CHEMISTRY OR DERABLES [facility] [address] [place] [address], [facility] [phone] * XR CHEST 1VW PORTABLE (10/01/2021 4:54 [...] Report dictated by Elmer Gomez MD, PhD (chairman president and chief executive officer). I, Dr. CHIP HUNT M.D. have personally [...] Report dictated by Elmer Gomez MD, PhD (chairman president and chief executive officer). I, Dr. CHIP HUNT M.D. have personally reviewed andinterpreted this examination/study. This report was electronically signed by CHIP HUNT M.D. on 10/01/2021 3:31 PM . Dar Kilpatrick MD DIAGNOSTIC IMAGING ORDERABLES * PHOSPHORUS BLOOD (09/30/2021 11:35 PM CDT) Phosphorus 3.0 2.8 - 5.1 mg/dL 10/01/2021 12:10 AM CDT [facility] Blood BLOOD SPECIMEN / Unknown Venipuncture / Unknown 09/30/2021 11:35 PM CDT 09/30/2021 11:44 PM CDT Dar Kilpatrick MD LAB - CHEMISTRY OR DERABLES Performing Organization Address City/[facility]/ZIP Co de Phone Number [address] [address], [facility] [phone] * MAGNESIUM BLOOD (09/30/2021 11:35 PM CDT) Magnesium 2.1 1.6 - 2.6 mg/dL 10/01/2021 12:10 AM CDT [facility] Blood BLOOD SPECIMEN / Unknown Venipuncture / Unknown 09/30/2021 11:35 PM CDT 09/30/2021 11:44 PM CDT Dar Kilpatrick MD LAB - CHEMISTRY OR DERABLES [address] [address], [facility] [phone] * (ABNORMAL) BLOOD GASES ART + COOX PANEL (09/30/2021 11:35 PM CDT) pH Arterial 7.51(H) 7.35 - 7.45 pH 09/30/2021 11:59 PM CDT [facility] pO2 Arterial 152(H) 80 - 100 mmHg 09/30/2021 11:59 PM CDT [facility] pCO2 Arterial 45 35 - 45 mmHg 11:59 PM [facility] HCO3 Arterial 36(H) 20 - 30 mmol/l 09/30/2021 11:59 PM [facility] BE Arterial 11.7(H) -2.0 - 2.0 mmol/L 09/30/2021 11:59 PM [facility] Oxyhemoglobin Arterial 97.1 % 09/30/2021 11:59 PM [facility] Dexoyhemoglobin (HHB) % 0.5 % 09/30/2021 11:59 PM [facility] Methemoglobin <0.8 0.0 - 2.0 % 09/30/2021 11:59 PM [facility] Carboxyhemoglobin 1.7 0.0 - 2.0 % 2021 11:59 PM [facility] O2 Content Arterial 11.0 Interpret within clinical context mg/dL 09/30/2021 11:59 PM [facility] Hemoglobin by COOX 7.8(L) 12.0 - 17.6 g/dL 09/30/2021 11:59 PM [facility] O2 Saturation Arterial 100 90 - 100 % 09/30/2021 11:59 PM [facility] FI O2 Arterial 40.0 % 09/30/2021 11:59 PM [facility] Blood, arterial ARTERIAL BLOOD SPECIMEN / Unknown Arterial Puncture / Unknown 09/30/2021 11:35 PM CDT 09/30/2021 11:53 PM [facility] - 09/30/2021 11:59 PM [facility] Carboxyhemoglobin Normal Concentration: Non-smokers: 0-2%; Smokers: 0-9%; Toxic: >20% Dar Klipatrick MD LAB - BLOOD GASES ORDERABLES [facility] [address] [place] [address], [facility] [phone] * (ABNORMAL) BASIC METABOLIC PANEL (CALCIUM TOTAL) (09/30/2021 11:35 PM CDT) BUN 15 7 - 26 mg/dL 10/01/2021 12:10 AM [facility] Creatinine 1.54(H) 0.71 - 1.16 mg/dL 10/01/2021 12:10 AM [facility] Sodium 139 136 - 145 mmol/L 10/01/2021 12:10 AM [facility] Potassium 3.6 3.5 - 4.5 mmol/L 10/01/2021 12:10 AM [facility] Chloride 98 98 - 107 mmol/L 10/01/2021 12:10 AM [facility] CO2 32(H) 22 - 29 mmol/L 10/01/2021 12:10 AM [facility] Glucose 120(H) 70 - 115 mg/dL 10/01/2021 12:10 AM [facility] Calcium 8.1(L) 8.4 - 10.2 mg/dL 10/01/2021 12:10 AM [facility] Anion Gap 13 8 - 18 10/01/2021 12:10 AM [facility] BUN/Creatinine Ratio 10 7 - 23 10/01/2021 12:10 AM [facility] Osmolality Calculated 290 270 - 300 mOsm/kg 10/01/2021 12:10 AM [facility] eGFR by CKD-EPI 59(L) >=90 mL/min/1.7 3 m2 10/01/2021 12:10 AM [facility] Blood BLOOD SPECIMEN / Unknown Venipuncture / Unknown 09/30/2021 11:35 PM CDT 09/30/2021 11:44 PM T Dar Kilpatrick MD LAB - CHEMISTRY OR DERABLES [facility] [address] [place] [address], [facility] [phone] * (ABNORMAL) CBC W/O DIFFERENTIAL (09/30/2021 11:28 PM CDT) WBC 8.8 3.5 - 10.5 10? 3 /uL 10/01/2021 12:01 AM [facility] RBC 2.64(L) 4.30 - 5.70 10? 6 /uL 10/01/2021 12:01 AM [facility] Hemoglobin 7.8(L) 12.0 - 17.6 g/dL 10/01/2021 12:01 AM [facility] Hematocrit 22.9(L) 35.2 - 51.7 % 10/01/2021 12:01 AM [facility] MCV 86.7 80.7 - 98.3 fL 10/01/2021 12:01 AM [facility] MCH 29.5 26.7 - 34.0 pg 10/01/2021 12:01 AM [facility] MCHC 34.1 30.8 - 35.9 g/dL 10/01/2021 12:01 AM [facility] Platelet Count 102(L) 150 - 400 10? 3 /uL 10/01/2021 12:01 AM [facility] RDW-SD 54.4(H) 36.0 - 50.0 fL 10/01/2021 12:01 AM [facility] RDW-CV 17.2(H) 11.2 - 14.8 % 10/01/2021 12:01 AM [facility] MPV 11.0 9.4 - 12.9 fL 10/01/2021 12:01 AM [facility] nRBC Absolute 0.02(H) 0 10? 3 /uL 10/01/2021 12:01 AM [facility] nRBC Auto 0.2(H) 0 /100 WBC 10/01/2021 12:01 AM [facility] Blood BLOOD SPECIMEN / Unknown Venipuncture / Unknown 09/30/2021 11:28 PM CDT 09/30/2021 11:44 PM CDT Dar Kilpatrick MD LAB - HEMATOLOGY O RDERABLES [facility] [address] [place] [address], [facility] [phone] * (ABNORMAL) CALCIUM IONIZED WHOLE BLOOD (09/30/2021 11:28 PM CDT) Pathologist [facility] Calcium Ionized 1.11 mmol/L 09/30/2021 11:53 PM T [facility] pH 7.49(H) 7.35 - 7.45 pH 09/30/2021 11:53 PM [facility] Ionized Calcium pH Adjusted 1.15(L) 1.19 - 1.34 mmol/L 09/30/2021 11:53 PM [facility] Blood BLOOD SPECIMEN / Unknown Venipuncture / Unknown 09/30/2021 11:28 PM CDT 09/30/2021 11:40 PM CDT aDr Kilpatrick MD LAB - CHEMISTRY OR DERABLES [facility] [address] [place] [address], [facility] [phone] * (ABNORMAL) BASIC METABOLIC PANEL (CALCIUM TOTAL) (09/30/2021 6:50 PM CDT) [facility] BUN 13 7 - 26 mg/dL 09/30/2021 7:28 PM [facility] Creatinine 1.58(H) 0.71 - 1.16 mg/dL 09/30/2021 7:28 PM [facility] Sodium 139 136 - 145 mmol/L 09/30/2021 7:28 PM [facility] Potassium 3.7 3.5 - 4.5 mmol/L 09/30/2021 7:28 PM [facility] Chloride 97(L) 98 - 107 mmol/L 09/30/2021 7:28 PM [facility] CO2 30(H) 22 - 29 mmol/L 09/30/2021 7:28 PM [facility] Glucose 107 70 - 115 mg/dL 09/30/2021 7:28 PM [facility] Calcium 7.8(L) 8.4 - 10.2 mg/dL 09/30/2021 7:28 PM [facility] Anion Gap 16 8 - 18 09/30/2021 7:28 PM [facility] BUN/Creatinine Ratio 8 7 - 23 09/30/2021 7:28 PM [facility] Osmolality Calculated 289 270 - 300 mOsm/kg 09/30/2021 7:28 PM [facility] eGFR by CKD-EPI 57(L) >=90 mL/min/1.7 3 m2 09/30/2021 7:28 PM [facility] Blood BLOOD SPECIMEN / Unknown Venipuncture / Unknown 09/30/2021 6:50 PM CDT 09/30/2021 7:03 PM CDT Dar Kilpatrick MD LAB - CHEMISTRY OR DERABLES [facility] [address] [place] [address], [facility] [phone] * (ABNORMAL) BLOOD GASES ART + COOX PANEL (09/30/2021 6:50 PM T) pH Arterial 7.47(H) 7.35 - 7.45 pH 09/30/2021 7:09 PM [facility] pO2 Arterial 73(L) 80 - 100 mmHg 09/30/2021 7:09 PM [facility] pCO2 Arterial 48(H) 35 - 45 mmHg 7:09 PM [facility] HCO3 Arterial 35(H) 20 - 30 mmol/l 09/30/2021 7:09 PM [facility] BE Arterial 10.1(H) -2.0 - 2.0 mmol/L 09/30/2021 7:09 PM [facility] Oxyhemoglobin Arterial 94.4 % 09/30/2021 7:09 PM [facility] Dexoyhemoglobin (HHB) % 2.6 % 09/30/2021 7:09 PM [facility] Methemoglobin 0.9 0.0 - 2.0 % 09/30/2021 7:09 PM [facility] Carboxyhemoglobin 2.0 0.0 - 2.0 % 2021 7:09 PM [facility] O2 Content Arterial 11.0 Interpret within clinical context mg/dL 09/30/2021 7:09 PM CDT [facility] Hemoglobin by COOX 8.2(L) 12.0 - 17.6 g/dL 09/30/2021 7:09 PM CDT [facility] O2 Saturation Arterial 97 90 - 100 % 09/30/2021 7:09 PM CDT [facility] FI O2 Arterial 40.0 % 09/30/2021 7:09 PM CDT [facility] Blood, arterial ARTERIAL BLOOD SPECIMEN / Unknown Arterial Puncture / Unknown 09/30/2021 6:50 PM CDT 09/30/2021 7:02 PM CDT Narrative [facility] - 09/30/2021 7:09 PM CDT Carboxyhemoglobin Normal Concentration: Non-smokers: 0-2%; Smokers: 0-9%; Toxic: >20% Dar Kilpatrick MD LAB - BLOOD GASES ORDERABLES Performing Organization Address City/[facility]/ZIP Co de Phone Number [address] [address], [facility] [phone] * PHOSPHORUS BLOOD (09/30/2021 6:50 PM CDT) Phosphorus 2.9 2.8 - 5.1 mg/dL 09/30/2021 7:28 PM CDT [facility] Blood BLOOD SPECIMEN / Unknown Venipuncture / Unknown 09/30/2021 6:50 PM CDT 09/30/2021 7:03 PM CDT Dar Kilpatrick MD LAB - CHEMISTRY OR DERABLES [address] [address], [facility] [phone] * MAGNESIUM BLOOD (09/30/2021 6:50 PM CDT) Magnesium 2.1 1.6 - 2.6 mg/dL 09/30/2021 7:28 PM CDT [facility] Blood BLOOD SPECIMEN / Unknown Venipuncture / Unknown 09/30/2021 6:50 PM CDT 09/30/2021 7:03 PM CDT Dar Kilpatrick MD LAB - CHEMISTRY OR DERABLES [facility] [address] [place] [address], [facility] [phone] * (ABNORMAL) CBC W/O DIFFERENTIAL (09/30/2021 6:50 PM CDT) WBC 7.5 3.5 - 10.5 10? 3 /uL 09/30/2021 7:40 PM CDT [facility] RBC 2.75(L) 4.30 - 5.70 10? 6 /uL 09/30/2021 7:40 PM CDT [facility] Hemoglobin 8.3(L) 12.0 - 17.6 g/dL 09/30/2021 7:40 PM T [facility] Hematocrit 23.8(L) 35.2 - 51.7 % 09/30/2021 7:40 PM CDT [facility] MCV 86.5 80.7 - 98.3 fL 09/30/2021 7:40 PM CDT [facility] MCH 30.2 26.7 - 34.0 pg 09/30/2021 7:40 PM CDT [facility] MCHC 34.9 30.8 - 35.9 g/dL 09/30/2021 7:40 PM CDT [facility] Platelet Count 86(L) 150 - 400 10? 3 /uL 09/30/2021 7:40 PM CDT [facility] RDW-SD 53.7(H) 36.0 - 50.0 fL 09/30/2021 7:40 PM CDT [facility] RDW-CV 17.0(H) 11.2 - 14.8 % 09/30/2021 7:40 PM CDT [facility] MPV 10.4 9.4 - 12.9 fL 09/30/2021 7:40 PM CDT [facility] nRBC Absolute 0.00 0 10? 3 /uL 09/30/2021 7:40 PM CDT [facility] nRBC Auto 0.0 0 /100 WBC 09/30/2021 7:40 PM CDT [facility] Blood BLOOD SPECIMEN / Unknown Venipuncture / Unknown 09/30/2021 6:50 PM CDT 09/30/2021 7:03 PM CDT Dar Kilpatrick MD LAB - HEMATOLOGY O RDERABLES Performing Organization Address [facility] Co de Phone Number [address] [address], [facility] [phone] * (ABNORMAL) CALCIUM IONIZED WHOLE BLOOD (09/30/2021 6:50 PM CDT) Calcium Ionized 1.10 mmol/L 09/30/2021 7:04 PM CDT [facility] pH 7.48(H) 7.35 - 7.45 pH 09/30/2021 7:04 PM CDT [facility] Ionized Calcium pH Adjusted 1.14(L) 1.19 - 1.34 mmol/L 09/30/2021 7:04 PM CDT [facility] Blood BLOOD SPECIMEN / Unknown Venipuncture / Unknown 09/30/2021 6:50 PM CDT 09/30/2021 7:02 PM CDT Dar Kilpatrick MD LAB - CHEMISTRY OR DERABLES Performing Organization Address [facility] Co de Phone Number [address] [address], [facility] [phone] * CT ABDOMEN PELVIS W CONTRAST (09/30/2021 [...] CDT) Dar Kilpatrick MD NURSING - BLOOD LA OD TRANSFUSION * TRANSFUSE RED BLOOD CELL LEUKOREDUCED UNIT(S), 1 Units (09/30/2021 5:21 PM CDT) Dar Klipatrick MD NURSING - BLOOD LA OD TRANSFUSION * PREPARE (CROSSMATCH) RBC UNIT(S), 1 Units (09/30/2021 1:01 PM CDT) Unit Description AS1 LR PRBC [facility] Unit ABO O [facility] B[facility] Unit Rh POS [facility] Product Number R02 [facility] B LO[facility] Unit Donor # [id number] [facility] Unit Status transfused [facility] Product Code [id number] [facility] OD [facility] LAB Blood Type Barcode 5100 [facility] LAB Expiration Date S BLOOD BANK LAB Blood Bank BLOOD SPECIMEN / Unknown 09/27/2021 9:39 PM CDT Dar Kilpatrick MD LAB - BLOOD BANK O RDERABLES [facility] [address] [place] [address], [facility] [phone] * (ABNORMAL) BLOOD GASES ART + COOX PANEL (09/30/2021 11:48 AM CDT) pH Arterial 7.45 7.35 - 7.45 pH 09/30/2021 12:00 PM [facility] pO2 Arterial 86 80 - 100 mmHg 09/30/2021 12:00 PM [facility] pCO2 Arterial 53(H) 35 - 45 mmHg 12:00 PM [facility] HCO3 Arterial 37(H) 20 - 30 mmol/l 09/30/2021 12:00 PM [facility] BE Arterial 11.0(H) -2.0 - 2.0 mmol/L 09/30/2021 12:00 PM [facility] Oxyhemoglobin Arterial 94.9 % 09/30/2021 12:00 PM [facility] Dexoyhemoglobin (HHB) % 2.3 % 09/30/2021 12:00 PM [facility] Methemoglobin 0.9 0.0 - 2.0 % 09/30/2021 12:00 PM [facility] Carboxyhemoglobin 1.8 0.0 - 2.0 % 2021 12:00 PM [facility] O2 Content Arterial 16.0 Interpret within clinical context mg/dL 09/30/2021 12:00 PM T [facility] Hemoglobin by COOX 11.9(L) 12.0 - 17.6 g/dL 09/30/2021 12:00 PM [facility] O2 Saturation Arterial 98 90 - 100 % 09/30/2021 12:00 PM T [facility] FI O2 Arterial 40.0 % 09/30/2021 12:00 PM T [facility] Blood, arterial ARTERIAL BLOOD SPECIMEN / Unknown Arterial Puncture / Unknown 09/30/2021 11:48 AM CDT 09/30/2021 11:52 AM CDT Narrative [facility] - 09/30/2021 12:00 PM CDT Carboxyhemoglobin Normal Concentration: Non-smokers: 0-2%; Smokers: 0-9%; Toxic: >20% Dar Kilpatrick MD LAB - BLOOD GASES ORDERABLES Performing Organization Address City/[facility]/ZIP Co de Phone Number [address] [address], [facility] [phone] * (ABNORMAL) CALCIUM IONIZED WHOLE BLOOD (09/30/2021 11:48 AM CDT) Calcium Ionized 1.09 mmol/L 09/30/2021 11:59 AM T [facility] pH 7.48(H) 7.35 - 7.45 pH 09/30/2021 11:59 AM [facility] Ionized Calcium pH Adjusted 1.13(L) 1.19 - 1.34 mmol/L 09/30/2021 11:59 AM T [facility] Blood BLOOD SPECIMEN / Unknown Venipuncture / Unknown 09/30/2021 11:48 AM CDT 09/30/2021 11:52 AM CDT Dar Kilpatrick MD LAB - CHEMISTRY OR DERABLES [address] [address], [place] [phone] * (ABNORMAL) BASIC METABOLIC PANEL (CALCIUM TOTAL) (09/30/2021 11:48 AM CDT) Pathologist [facility] BUN 14 7 - 26 mg/dL 09/30/2021 12:24 PM [facility] Creatinine 1.55(H) 0.71 - 1.16 mg/dL 09/30/2021 12:24 PM [facility] Sodium 138 136 - 145 mmol/L 09/30/2021 12:24 PM [facility] Potassium 3.4(L) 3.5 - 4.5 mmol/L 09/30/2021 12:24 PM [facility] Chloride 97(L) 98 - 107 mmol/L 09/30/2021 12:24 PM [facility] CO2 34(H) 22 - 29 mmol/L 09/30/2021 12:24 PM [facility] Glucose 128(H) 70 - 115 mg/dL 09/30/2021 12:24 PM [facility] Calcium 8.1(L) 8.4 - 10.2 mg/dL 09/30/2021 12:24 PM [facility] Anion Gap 10 8 - 18 09/30/2021 12:24 PM [facility] BUN/Creatinine Ratio 9 7 - 23 09/30/2021 12:24 PM [facility] Osmolality Calculated 288 270 - 300 mOsm/kg 09/30/2021 12:24 PM [facility] eGFR by CKD-EPI 58(L) >=90 mL/min/1.7 3 m2 09/30/2021 12:24 PM [facility] Blood BLOOD SPECIMEN / Unknown Venipuncture / Unknown 09/30/2021 11:48 AM CDT 09/30/2021 11:53 AM CDT Dar Kilpatrick MD LAB - CHEMISTRY OR DERABLES [facility] [address] [place] [address], [facility] [phone] * (ABNORMAL) CBC W AUTO DIFFERENTIAL (09/30/2021 11:48 AM CDT) Pathologist [facility] WBC 7.9 3.5 - 10.5 10? 3 /uL 09/30/2021 12:17 PM [facility] RBC 2.28(L) 4.30 - 5.70 10? 6 /uL 09/30/2021 12:17 PM [facility] Hemoglobin 6.9(L) 12.0 - 17.6 g/dL 09/30/2021 12:17 PM [facility] Hematocrit 20.5(L) 35.2 - 51.7 % 09/30/2021 12:17 PM [facility] MCV 89.9 80.7 - 98.3 fL 09/30/2021 12:17 PM [facility] MCH 30.3 26.7 - 34.0 pg 09/30/2021 12:17 PM [facility] MCHC 33.7 30.8 - 35.9 g/dL 09/30/2021 12:17 PM [facility] Platelet Count 104(L) 150 - 400 10? 3 /uL 09/30/2021 12:17 PM [facility] RDW-SD 47.8 36.0 - 50.0 fL 09/30/2021 12:17 PM [facility] RDW-CV 14.6 11.2 - 14.8 % 09/30/2021 12:17 PM [facility] MPV 10.8 9.4 - 12.9 fL 09/30/2021 12:17 PM [facility] nRBC Absolute 0.02(H) 0 10? 3 /uL 09/30/2021 12:17 PM [facility] nRBC Auto 0.3(H) 0 /100 WBC 09/30/2021 12:17 PM [facility] Neutrophils % 83.4(H) 35.0 - 70.0 % 09/30/2021 12:17 PM [facility] Lymphocytes % 8.8(L) 20.0 - 43.0 % 09/30/2021 12:17 PM [facility] Monocytes % 6.5 5.0 - 13.0 % 09/30/2021 12:17 PM [facility] Eosinophils % 0.6 0.0 - 6.0 % 09/30/2021 12:17 PM [facility] Basophil % 0.1 0.0 - 2.0 % 09/30/2021 12:17 PM [facility] Neutrophils Absolute 6.54 1.60 - 7.00 10? 3 /uL 09/30/2021 12:17 PM [facility] Lymphocyte Absolute 0.69(L) 1.10 - 3.90 10? 3 /uL 09/30/2021 12:17 PM [facility] Monocytes Absolute 0.51 0.26 - 1.07 10? 3 /uL 09/30/2021 12:17 PM [facility] Eosinophils Absolute 0.05 0.00 - 0.47 10? 3 /uL 09/30/2021 12:17 PM [facility] Basophils Absolute 0.01 0.00 - 0.08 10? 3 /uL 09/30/2021 12:17 PM [facility] Immature Granulocytes % 0.6 0.0 - 1.0 % 09/30/2021 12:17 PM [facility] Immature Granulocytes Absolute 0.05 09/30/2021 12:17 PM [facility] Immature Platelet Fraction 4.1 1.1 - 6.2 % 09/30/2021 12:17 PM [facility] Blood BLOOD SPECIMEN / Unknown Venipuncture / Unknown 09/30/2021 11:48 AM CDT 09/30/2021 11:53 AM CDT Darrell Gomez MD LAB - HEMATOLOGY ORD ERABLES Performing Organization Address City/State/[facility] Co de Phone Number [facility] [address] [place] [address], [facility] [phone] * (ABNORMAL) GLUCOSE - POINT OF CARE (09/30/2021 11:45 AM CDT) Glucose WB/POC 147(H) 70 - 115 mg/dL 09/30/2021 11:50 AM T [facility] Specimen Type Arterial 09/30/2021 11:50 AM [facility] Blood BLOOD SPECIMEN / Unknown 09/30/2021 11:45 AM CDT 09/30/2021 11:50 AM CDT Dar Kilpatrick MD LAB - POINT OF CAR E ORDERABLES [facility] [address] [place] [address], [place] [phone] * TRANSFUSE RED BLOOD CELL LEUKOREDUCED UNIT(S) (09/30/2021 11:16 AM CDT) Dar Kilpatrick MD NURSING - BLOOD LA OD TRANSFUSION * TRANSFUSE RED BLOOD CELL LEUKOREDUCED UNIT(S), 1 Units (09/30/2021 11:16 AM CDT) Dar Kilpatrikc MD NURSING - BLOOD LA OD TRANSFUSION * (ABNORMAL) GLUCOSE - POINT OF CARE (09/30/2021 8:10 AM CDT) Glucose WB/POC 136(H) 70 - 115 mg/dL 09/30/2021 8:15 AM CDT [facility] Specimen Type Arterial 09/30/2021 8:15 AM CDT [facility] Blood BLOOD SPECIMEN / Unknown 09/30/2021 8:10 AM CDT 09/30/2021 8:15 AM CDT Dar Kilpatrick MD LAB - POINT OF CAR E ORDERABLES Performing Organization Address City/[facility]/ZIP Co de Phone Number [address] [address], [facility] [phone] * PREPARE (CROSSMATCH) RBC UNIT(S), 1 Units (09/30/2021 7:22 AM CDT) Unit Description AS1 LR PRBC [facility] Unit ABO O [facility] Unit Rh POS [facility] Product Number R02 [facility] Unit Donor # [id number] [facility] Unit Status transfused [facility] Product [facility] [id number] [facility] Blood Type Barcode 5100 [facility] Expiration Date S BLOOD BANK LAB Blood Bank BLOOD SPECIMEN / Unknown 09/27/2021 9:39 PM CDT Dar Kilpatrick MD LAB - BLOOD BANK O RDERABLES [facility] [address] [place] [address], [facility] [phone] * (ABNORMAL) BLOOD GASES ART + COOX PANEL (09/30/2021 5:47 AM CDT) pH Arterial 7.54(H) 7.35 - 7.45 pH 09/30/2021 6:19 AM [facility] pO2 Arterial 70(L) 80 - 100 mmHg 09/30/2021 6:19 AM [facility] pCO2 Arterial 42 35 - 45 mmHg 6:19 AM [facility] HCO3 Arterial 36(H) 20 - 30 mmol/l 09/30/2021 6:19 AM [facility] BE Arterial 12.3(H) -2.0 - 2.0 mmol/L 09/30/2021 6:19 AM [facility] Oxyhemoglobin Arterial 94.5 % 09/30/2021 6:19 AM [facility] Dexoyhemoglobin (HHB) % 1.8 % 09/30/2021 6:19 AM [facility] Methemoglobin 1.7 0.0 - 2.0 % 09/30/2021 6:19 AM [facility] Carboxyhemoglobin 2.0 0.0 - 2.0 % 2021 6:19 AM [facility] O2 Content Arterial 8.9 Interpret within clinical context mg/dL 09/30/2021 6:19 AM [facility] Hemoglobin by COOX 6.6(L) 12.0 - 17.6 g/dL 09/30/2021 6:19 AM [facility] O2 Saturation Arterial 98 90 - 100 % 09/30/2021 6:19 AM [facility] FI O2 Arterial 40.0 % 09/30/2021 6:19 AM [facility] Blood, arterial ARTERIAL BLOOD SPECIMEN / Unknown Arterial Puncture / Unknown 09/30/2021 5:47 AM CDT 09/30/2021 5:51 AM CDT Narrative [facility] - 09/30/2021 6:19 AM CDT Carboxyhemoglobin Normal Concentration: Non-smokers: 0-2%; Smokers: 0-9%; Toxic: >20% Dar Kilpatrick MD LAB - BLOOD GASES ORDERABLES Performing Organization Address [facility] de Phone Number [address] [address], [facility] [phone] * (ABNORMAL) CALCIUM IONIZED WHOLE BLOOD (09/30/2021 5:47 AM CDT) Pathologist [facility] Calcium Ionized 1.21 mmol/L 09/30/2021 5:58 AM CDT [facility] pH 7.57(H) 7.35 - 7.45 pH 09/30/2021 5:58 AM CDT [facility] Ionized Calcium pH Adjusted 1.30 1.19 - 1.34 mmol/L 09/30/2021 5:58 AM CDT [facility] Blood BLOOD SPECIMEN / Unknown Venipuncture / Unknown 09/30/2021 5:47 AM CDT 09/30/2021 5:51 AM CDT Dar Kilpatrick MD LAB - CHEMISTRY OR DERABLES Performing Organization Address [facility] de Phone Number [address] [address], [facility] [phone] * (ABNORMAL) BASIC METABOLIC PANEL (CALCIUM TOTAL) (09/30/2021 5:47 AM CDT) BUN 16 7 - 26 mg/dL 09/30/2021 6:22 AM T [facility] Creatinine 1.63(H) 0.71 - 1.16 mg/dL 09/30/2021 6:22 AM T [facility] Sodium 138 136 - 145 mmol/L 09/30/2021 6:22 AM T [facility] Potassium 3.4(L) 3.5 - 4.5 mmol/L 09/30/2021 6:22 AM [facility] Chloride 97(L) 98 - 107 mmol/L 09/30/2021 6:22 AM [facility] CO2 35(H) 22 - 29 mmol/L 09/30/2021 6:22 AM [facility] Glucose 130(H) 70 - 115 mg/dL 09/30/2021 6:22 AM [facility] Calcium 8.5 8.4 - 10.2 mg/dL 09/30/2021 6:22 AM [facility] Anion Gap 9 8 - 18 09/30/2021 6:22 AM [facility] BUN/Creatinine Ratio 10 7 - 23 09/30/2021 6:22 AM [facility] Osmolality Calculated 289 270 - 300 mOsm/kg 09/30/2021 6:22 AM [facility] eGFR by CKD-EPI 55(L) >=90 mL/min/1.7 3 m2 09/30/2021 6:22 AM [facility] Blood BLOOD SPECIMEN / Unknown Venipuncture / Unknown 09/30/2021 5:47 AM CDT 09/30/2021 5:57 AM CDT Dar Kilpatrick MD LAB - CHEMISTRY OR DERABLES Performing Organization Address City/State/[facility] Co de Phone Number [facility] [address] [place] [address], [facility] [phone] * (ABNORMAL) CBC W AUTO DIFFERENTIAL (09/30/2021 5:47 AM CDT) WBC 7.0 3.5 - 10.5 10? 3 /uL 09/30/2021 6:05 AM [facility] RBC 2.01(L) 4.30 - 5.70 10? 6 /uL 09/30/2021 6:05 AM [facility] Hemoglobin 6.3(L) 12.0 - 17.6 g/dL 09/30/2021 6:05 AM [facility] Hematocrit 18.4(L) 35.2 - 51.7 % 09/30/2021 6:05 AM [facility] MCV 91.5 80.7 - 98.3 fL 09/30/2021 6:05 AM [facility] MCH 31.3 26.7 - 34.0 pg 09/30/2021 6:05 AM [facility] MCHC 34.2 30.8 - 35.9 g/dL 09/30/2021 6:05 AM [facility] Platelet Count 108(L) 150 - 400 10? 3 /uL 09/30/2021 6:05 AM [facility] RDW-SD 45.9 36.0 - 50.0 fL 09/30/2021 6:05 AM [facility] RDW-CV 13.6 11.2 - 14.8 % 09/30/2021 6:05 AM [facility] MPV 10.8 9.4 - 12.9 fL 09/30/2021 6:05 AM [facility] nRBC Absolute 0.00 0 10? 3 /uL 09/30/2021 6:05 AM [facility] nRBC Auto 0.0 0 /100 WBC 09/30/2021 6:05 AM [facility] Neutrophils % 83.0(H) 35.0 - 70.0 % 09/30/2021 6:05 AM [facility] Lymphocytes % 9.1(L) 20.0 - 43.0 % 09/30/2021 6:05 AM [facility] Monocytes % 7.0 5.0 - 13.0 % 09/30/2021 6:05 AM [facility] Eosinophils % 0.4 0.0 - 6.0 % 09/30/2021 6:05 AM [facility] Basophil % 0.1 0.0 - 2.0 % 09/30/2021 6:05 AM [facility] Neutrophils Absolute 5.84 1.60 - 7.00 10? 3 /uL 09/30/2021 6:05 AM [facility] Lymphocyte Absolute 0.64(L) 1.10 - 3.90 10? 3 /uL 09/30/2021 6:05 AM [facility] Monocytes Absolute 0.49 0.26 - 1.07 10? 3 /uL 09/30/2021 6:05 AM T [facility] Eosinophils Absolute 0.03 0.00 - 0.47 10? 3 /uL 09/30/2021 6:05 AM T [facility] Basophils Absolute 0.01 0.00 - 0.08 10? 3 /uL 09/30/2021 6:05 AM CDT [facility] Immature Granulocytes % 0.4 0.0 - 1.0 % 09/30/2021 6:05 AM T [facility] Immature Granulocytes Absolute 0.03 09/30/2021 6:05 AM [facility] Immature Platelet Fraction 4.7 1.1 - 6.2 % 09/30/2021 6:05 AM [facility] Blood BLOOD SPECIMEN / Unknown Venipuncture / Unknown 09/30/2021 5:47 AM CDT 09/30/2021 5:57 AM CDT Darrell Gomez MD LAB - HEMATOLOGY ORD ERABLES [facility] [address] [place] [address], [facility] [phone] * XR CHEST 1VW PORTABLE (09/30/2021 4:26 [...] to inferior right hemithorax. Report dictated by Maerk Santos MD (chairman president and chief executive officer). I, Dr. AIDEN MCKEON have personally reviewed [...] hemithorax. Report dictated by Marek Santos MD (chairman president and chief executive officer). I, Dr. AIDEN MCKEON have personally reviewed and interpreted this examination/study. This report was electronically signed by AIDEN MCKEON on 09/30/2021 4:07 PM . Dar Kilpatrick MD DIAGNOSTIC IMAGING ORDERABLES * (ABNORMAL) GLUCOSE - POINT OF CARE (09/30/2021 3:49 AM CDT) Glucose WB/POC 141(H) 70 - 115 mg/dL 09/30/2021 3:50 AM CDT [facility] Specimen Type Cap Fingerstick 2021 3:50 AM CDT [facility] Blood BLOOD SPECIMEN / Unknown 09/30/2021 3:49 AM CDT 09/30/2021 3:50 AM CDT Dar Kilpatrick MD LAB - POINT OF CAR E ORDERABLES [facility] [address] [place] [address] [phone] * (ABNORMAL) BLOOD GASES ART + COOX PANEL (09/30/2021 12:16 AM [facility]) pH Arterial 7.50(H) 7.35 - 7.45 pH 09/30/2021 12:33 AM [facility] pO2 Arterial 90 80 - 100 mmHg 09/30/2021 12:33 AM [facility] pCO2 Arterial 48(H) 35 - 45 mmHg 12:33 AM [facility] HCO3 Arterial 37(H) 20 - 30 mmol/l 09/30/2021 12:33 AM [facility] BE Arterial 12.9(H) -2.0 - 2.0 mmol/L 09/30/2021 12:33 AM [facility] Oxyhemoglobin Arterial 96.0 % 09/30/2021 12:33 AM [facility] Dexoyhemoglobin (HHB) % 1.8 % 09/30/2021 12:33 AM [facility] Methemoglobin <0.8 0.0 - 2.0 % 09/30/2021 12:33 AM [facility] Carboxyhemoglobin 1.4 0.0 - 2.0 % 2021 12:33 AM [facility] O2 Content Arterial 10.2 Interpret within clinical context mg/dL 09/30/2021 12:33 AM [facility] Hemoglobin by COOX 7.4(L) 12.0 - 17.6 g/dL 09/30/2021 12:33 AM [facility] O2 Saturation Arterial 98 90 - 100 % 09/30/2021 12:33 AM [facility] FI O2 Arterial 40.0 % 09/30/2021 12:33 AM [facility] Blood, arterial ARTERIAL BLOOD SPECIMEN / Unknown Arterial Puncture / Unknown 09/30/2021 12:16 AM CDT 09/30/2021 12:19 AM [facility] - 09/30/2021 12:33 AM [facility] Carboxyhemoglobin Normal Concentration: Non-smokers: 0-2%; Smokers: 0-9%; Toxic: >20% Dar Kilpatrick MD LAB - BLOOD GASES ORDERABLES Performing Organization Address [facility]/ZIP Co de Phone Number [address] [address], [facility] [phone] * (ABNORMAL) CALCIUM IONIZED WHOLE BLOOD (09/30/2021 12:16 AM CDT) Calcium Ionized 1.11 mmol/L 09/30/2021 12:24 AM [facility] pH 7.49(H) 7.35 - 7.45 pH 09/30/2021 12:24 AM [facility] Ionized Calcium pH Adjusted 1.15(L) 1.19 - 1.34 mmol/L 09/30/2021 12:24 AM [facility] Blood BLOOD SPECIMEN / Unknown Venipuncture / Unknown 09/30/2021 12:16 AM CDT 09/30/2021 12:19 AM CDT Dar Kilpatrick MD LAB - CHEMISTRY OR DERABLES Performing Organization Address [facility] Co de Phone Number [address] [address], [facility] [phone] * (ABNORMAL) BASIC METABOLIC PANEL (CALCIUM TOTAL) (09/30/2021 12:16 AM CDT) BUN 16 7 - 26 mg/dL 09/30/2021 12:46 AM [facility] Creatinine 1.72(H) 0.71 - 1.16 mg/dL 09/30/2021 12:46 AM [facility] Sodium 139 136 - 145 mmol/L 09/30/2021 12:46 AM [facility] Potassium 3.5 3.5 - 4.5 mmol/L 09/30/2021 12:46 AM [facility] Chloride 99 98 - 107 mmol/L 09/30/2021 12:46 AM [facility] CO2 33(H) 22 - 29 mmol/L 09/30/2021 12:46 AM [facility] Glucose 130(H) 70 - 115 mg/dL 09/30/2021 12:46 AM [facility] Calcium 7.9(L) 8.4 - 10.2 mg/dL 09/30/2021 12:46 AM [facility] Anion Gap 11 8 - 18 09/30/2021 12:46 AM [facility] BUN/Creatinine Ratio 9 7 - 23 09/30/2021 12:46 AM [facility] Osmolality Calculated 291 270 - 300 mOsm/kg 09/30/2021 12:46 AM [facility] eGFR by CKD-EPI 52(L) >=90 mL/min/1.7 3 m2 09/30/2021 12:46 AM [facility] Blood BLOOD SPECIMEN / Unknown Venipuncture / Unknown 09/30/2021 12:16 AM CDT 09/30/2021 12:20 AM T Dar Kilpatrick MD LAB - CHEMISTRY OR DERABLES [facility] [address] [place] [id number], [facility] [phone] * (ABNORMAL) CBC W AUTO DIFFERENTIAL (09/30/2021 12:16 AM [facility]) WBC 7.7 3.5 - 10.5 10? 3 /uL 09/30/2021 12:26 AM [facility] RBC 2.08(L) 4.30 - 5.70 10? 6 /uL 09/30/2021 12:26 AM [facility] Hemoglobin 6.5(L) 12.0 - 17.6 g/dL 09/30/2021 12:26 AM [facility] Hematocrit 19.0(L) 35.2 - 51.7 % 09/30/2021 12:26 AM [facility] [facility] MCV 91.3 80.7 - 98.3 fL 09/30/2021 12:26 AM [facility] MCH 31.3 26.7 - 34.0 pg 09/30/2021 12:26 AM [facility] MCHC 34.2 30.8 - 35.9 g/dL 09/30/2021 12:26 AM [facility] Platelet Count 102(L) 150 - 400 10? 3 /uL 09/30/2021 12:26 AM [facility] RDW-SD 46.5 36.0 - 50.0 fL 09/30/2021 12:26 AM [facility] RDW-CV 13.7 11.2 - 14.8 % 09/30/2021 12:26 AM [facility] MPV 10.8 9.4 - 12.9 fL 09/30/2021 12:26 AM [facility] nRBC Absolute 0.00 0 10? 3 /uL 09/30/2021 12:26 AM [facility] nRBC Auto 0.0 0 /100 WBC 09/30/2021 12:26 AM [facility] Neutrophils % 84.0(H) 35.0 - 70.0 % 09/30/2021 12:26 AM [facility] Lymphocytes % 7.7(L) 20.0 - 43.0 % 09/30/2021 12:26 AM [facility] Monocytes % 7.0 5.0 - 13.0 % 09/30/2021 12:26 AM [facility] Eosinophils % 0.4 0.0 - 6.0 % 09/30/2021 12:26 AM [facility] Basophil % 0.1 0.0 - 2.0 % 09/30/2021 12:26 AM [facility] Neutrophils Absolute 6.44 1.60 - 7.00 10? 3 /uL 09/30/2021 12:26 AM [facility] Lymphocyte Absolute 0.59(L) 1.10 - 3.90 10? 3 /uL 09/30/2021 12:26 AM [facility] Monocytes Absolute 0.54 0.26 - 1.07 10? 3 /uL 09/30/2021 12:26 AM [facility] Eosinophils Absolute 0.03 0.00 - 0.47 10? 3 /uL 09/30/2021 12:26 AM [facility] Basophils Absolute 0.01 0.00 - 0.08 10? 3 /uL 09/30/2021 12:26 AM CDT [facility] Immature Granulocytes % 0.8 0.0 - 1.0 % 09/30/2021 12:26 AM CDT [facility] Immature Granulocytes Absolute 0.06 09/30/2021 12:26 AM CDT [facility] Immature Platelet Fraction 4.8 1.1 - 6.2 % 09/30/2021 12:26 AM CDT [facility] Blood BLOOD SPECIMEN / Unknown Venipuncture / Unknown 09/30/2021 12:16 AM CDT 09/30/2021 12:20 AM CDT Darrell Gomez MD LAB - HEMATOLOGY ORD ERABLES [address] [address], [facility] [phone] * (ABNORMAL) PHOSPHORUS BLOOD (09/30/2021 12:16 AM CDT) Phosphorus 2.4(L) 2.8 - 5.1 mg/dL 09/30/2021 12:46 AM CDT [facility] Blood BLOOD SPECIMEN / Unknown Venipuncture / Unknown 09/30/2021 12:16 AM CDT 09/30/2021 12:20 AM CDT Dar Kilpatrick MD LAB - CHEMISTRY OR DERABLES [address] [address], [facility] [phone] * MAGNESIUM BLOOD (09/30/2021 12:16 AM CDT) Magnesium 1.9 1.6 - 2.6 mg/dL 09/30/2021 12:46 AM CDT [facility] Blood BLOOD SPECIMEN / Unknown Venipuncture / Unknown 09/30/2021 12:16 AM CDT 09/30/2021 12:20 AM CDT Dar Kilpatrick MD LAB - CHEMISTRY OR DERABLES [facility] [address] [place] [address], [place] [phone] * (ABNORMAL) GLUCOSE - POINT OF CARE (09/30/2021 12:12 AM CDT) Glucose WB/POC 136(H) 70 - 115 mg/dL 09/30/2021 12:15 AM CDT [facility] Specimen Type Arterial 09/30/2021 12:15 AM CDT [facility] Blood BLOOD SPECIMEN / Unknown 09/30/2021 12:12 AM CDT 09/30/2021 12:15 AM CDT Dar Kilpatrick MD LAB - POINT OF CAR E ORDERABLES [facility] [address] [place] [address], [place] [phone] * (ABNORMAL) GLUCOSE - POINT OF CARE (09/29/2021 8:18 PM CDT) Glucose WB/POC 122(H) 70 - 115 mg/dL 09/29/2021 8:19 PM CDT [facility] Specimen Type Cap Fingerstick 2021 8:19 PM CDT [facility] Blood BLOOD SPECIMEN / Unknown 09/29/2021 8:18 PM CDT 09/29/2021 8:19 PM CDT Dar Kilpatrick MD LAB - POINT OF CAR E ORDERABLES [facility] [address] [place] [address], [place] [phone] * (ABNORMAL) BLOOD GASES ART + COOX PANEL (09/29/2021 6:36 PM CDT) pH Arterial 7.48(H) 7.35 - 7.45 pH 09/29/2021 6:43 PM CDT [facility] pO2 Arterial 105(H) 80 - 100 mmHg 09/29/2021 6:43 PM [facility] pCO2 Arterial 45 35 - 45 mmHg 6:43 PM [facility] HCO3 Arterial 34(H) 20 - 30 mmol/l 09/29/2021 6:43 PM [facility] BE Arterial 9.1(H) -2.0 - 2.0 mmol/L 09/29/2021 6:43 PM [facility] Oxyhemoglobin Arterial 97.2 % 09/29/2021 6:43 PM [facility] Dexoyhemoglobin (HHB) % 0.6 % 09/29/2021 6:43 PM [facility] Methemoglobin <0.8 0.0 - 2.0 % 09/29/2021 6:43 PM [facility] Carboxyhemoglobin 1.4 0.0 - 2.0 % 2021 6:43 PM [facility] O2 Content Arterial 10.3 Interpret within clinical context mg/dL 09/29/2021 6:43 PM [facility] Hemoglobin by COOX 7.4(L) 12.0 - 17.6 g/dL 09/29/2021 6:43 PM [facility] O2 Saturation Arterial 99 90 - 100 % 09/29/2021 6:43 PM [facility] FI O2 Arterial 40.0 % 09/29/2021 6:43 PM [facility] Blood, arterial ARTERIAL BLOOD SPECIMEN / Unknown Arterial Puncture / Unknown 09/29/2021 6:36 PM CDT 09/29/2021 6:41 PM [facility] - 09/29/2021 6:43 PM T Carboxyhemoglobin Normal Concentration: Non-smokers: 0-2%; Smokers: 0-9%; Toxic: >20% Dar Kilpatrick MD LAB - BLOOD GASES ORDERABLES [facility] [address] [place] [address], [facility] [phone] * (ABNORMAL) CALCIUM IONIZED WHOLE BLOOD (09/29/2021 6:36 PM CDT) Pathologist [facility] Calcium Ionized 1.08 mmol/L 09/29/2021 6:43 PM T [facility] pH 7.48(H) 7.35 - 7.45 pH 09/29/2021 6:43 PM [facility] Ionized Calcium pH Adjusted 1.12(L) 1.19 - 1.34 mmol/L 09/29/2021 6:43 PM [facility] Blood BLOOD SPECIMEN / Unknown Venipuncture / Unknown 09/29/2021 6:36 PM CDT 09/29/2021 6:40 PM CDT Dar Kilpatrick MD LAB - CHEMISTRY OR DERABLES [facility] [address] [place] [address], [facility] [phone] * (ABNORMAL) BASIC METABOLIC PANEL (CALCIUM TOTAL) (09/29/2021 6:36 PM CDT) [facility] BUN 18 7 - 26 mg/dL 09/29/2021 7:06 PM [facility] Creatinine 1.80(H) 0.71 - 1.16 mg/dL 09/29/2021 7:06 PM [facility] Sodium 141 136 - 145 mmol/L 09/29/2021 7:06 PM [facility] Potassium 3.5 3.5 - 4.5 mmol/L 09/29/2021 7:06 PM [facility] Chloride 102 98 - 107 mmol/L 09/29/2021 7:06 PM [facility] CO2 32(H) 22 - 29 mmol/L 09/29/2021 7:06 PM [facility] Glucose 134(H) 70 - 115 mg/dL 09/29/2021 7:06 PM [facility] Calcium 8.0(L) 8.4 - 10.2 mg/dL 09/29/2021 7:06 PM [facility] Anion Gap 11 8 - 18 09/29/2021 7:06 PM [facility] BUN/Creatinine Ratio 10 7 - 23 09/29/2021 7:06 PM [facility] Osmolality Calculated 296 270 - 300 mOsm/kg 09/29/2021 7:06 PM [facility] eGFR by CKD-EPI 49(L) >=90 mL/min/1.7 3 m2 09/29/2021 7:06 PM [facility] Blood BLOOD SPECIMEN / Unknown Venipuncture / Unknown 09/29/2021 6:36 PM CDT 09/29/2021 6:40 PM CDT Dar Kilpatrick MD LAB - CHEMISTRY OR DERABLES [facility] [address] [place] [address], [facility] [phone] * (ABNORMAL) CBC W AUTO DIFFERENTIAL (09/29/2021 6:36 PM CDT) WBC 9.3 3.5 - 10.5 10? 3 /uL 09/29/2021 6:46 PM [facility] RBC 2.26(L) 4.30 - 5.70 10? 6 /uL 09/29/2021 6:46 PM [facility] Hemoglobin 7.1(L) 12.0 - 17.6 g/dL 09/29/2021 6:46 PM [facility] Hematocrit 20.4(L) 35.2 - 51.7 % 09/29/2021 6:46 PM [facility] MCV 90.3 80.7 - 98.3 fL 09/29/2021 6:46 PM [facility] MCH 31.4 26.7 - 34.0 pg 09/29/2021 6:46 PM [facility] MCHC 34.8 30.8 - 35.9 g/dL 09/29/2021 6:46 PM [facility] Platelet Count 110(L) 150 - 400 10? 3 /uL 09/29/2021 6:46 PM [facility] RDW-SD 45.9 36.0 - 50.0 fL 09/29/2021 6:46 PM [facility] RDW-CV 13.9 11.2 - 14.8 % 09/29/2021 6:46 PM [facility] MPV 10.6 9.4 - 12.9 fL 09/29/2021 6:46 PM [facility] nRBC Absolute 0.00 0 10? 3 /uL 09/29/2021 6:46 PM [facility] nRBC Auto 0.0 0 /100 WBC 09/29/2021 6:46 PM [facility] Neutrophils % 82.9(H) 35.0 - 70.0 % 09/29/2021 6:46 PM [facility] Lymphocytes % 8.3(L) 20.0 - 43.0 % 09/29/2021 6:46 PM [facility] Monocytes % 7.9 5.0 - 13.0 % 09/29/2021 6:46 PM [facility] Eosinophils % 0.3 0.0 - 6.0 % 09/29/2021 6:46 PM [facility] Basophil % 0.1 0.0 - 2.0 % 09/29/2021 6:46 PM [facility] Neutrophils Absolute 7.70(H) 1.60 - 7.00 10? 3 /uL 09/29/2021 6:46 PM [facility] Lymphocyte Absolute 0.77(L) 1.10 - 3.90 10? 3 /uL 09/29/2021 6:46 PM [facility] Monocytes Absolute 0.73 0.26 - 1.07 10? 3 /uL 09/29/2021 6:46 PM [facility] Eosinophils Absolute 0.03 0.00 - 0.47 10? 3 /uL 09/29/2021 6:46 PM [facility] Basophils Absolute 0.01 0.00 - 0.08 10? 3 /uL 09/29/2021 6:46 PM [facility] Immature Granulocytes % 0.5 0.0 - 1.0 % 09/29/2021 6:46 PM [facility] Immature Granulocytes Absolute 0.05 09/29/2021 6:46 PM [facility] Immature Platelet Fraction 4.8 1.1 - 6.2 % 09/29/2021 6:46 PM CDT [facility] Blood BLOOD SPECIMEN / Unknown Venipuncture / Unknown 09/29/2021 6:36 PM CDT 09/29/2021 6:41 PM CDT Darrell Gomez MD LAB - HEMATOLOGY ORD ERABLES Performing Organization Address City/[facility]/ZIP Co de Phone Number [address] [address], [place] [phone] * (ABNORMAL) GLUCOSE - POINT OF CARE (09/29/2021 4:12 PM CDT) Glucose WB/POC 138(H) 70 - 115 mg/dL 09/29/2021 4:17 PM CDT [facility] Specimen Type Cap Fingerstick 2021 4:17 PM CDT [facility] Blood BLOOD SPECIMEN / Unknown 09/29/2021 4:12 PM CDT 09/29/2021 4:17 PM CDT Dar Kilpatrick MD LAB - POINT OF CAR E ORDERABLES Performing Organization Address City/[facility]/ZIP Co de Phone Number [address] [address], [place] [phone] * CT CHEST WO CONTRAST (09/29/2021 2:30 [...] 7.35 - 7.45 pH 09/29/2021 12:43 PM [facility] pO2 Arterial 151(H) 80 - 100 mmHg 09/29/2021 12:43 PM [facility] pCO2 Arterial 40 35 - 45 mmHg 12:43 PM [facility] HCO3 Arterial 31(H) 20 - 30 mmol/l 09/29/2021 12:43 PM [facility] BE Arterial 6.6(H) -2.0 - 2.0 mmol/L 09/29/2021 12:43 PM [facility] Oxyhemoglobin Arterial 98.6 % 09/29/2021 12:43 PM [facility] Dexoyhemoglobin (HHB) % 0.5 % 09/29/2021 12:43 PM [facility] Methemoglobin <0.8 0.0 - 2.0 % 09/29/2021 12:43 PM [facility] Carboxyhemoglobin 0.9 0.0 - 2.0 % 2021 12:43 PM [facility] O2 Content Arterial 10.3 Interpret within clinical context mg/dL 09/29/2021 12:43 PM [facility] Hemoglobin by COOX 7.2(L) 12.0 - 17.6 g/dL 09/29/2021 12:43 PM [facility] O2 Saturation Arterial 100 90 - 100 % 09/29/2021 12:43 PM [facility] FI O2 Arterial 40.0 % 09/29/2021 12:43 PM [facility] Blood, arterial ARTERIAL BLOOD SPECIMEN / Unknown Arterial Puncture / Unknown 09/29/2021 12:36 PM T 09/29/2021 12:39 PM [facility] - 09/29/2021 12:43 PM [facility] Carboxyhemoglobin Normal Concentration: Non-smokers: 0-2%; Smokers: 0-9%; Toxic: >20% Dar Kilpatrick MD LAB - BLOOD GASES ORDERABLES [address] [address], [facility] [phone] * (ABNORMAL) CALCIUM IONIZED WHOLE BLOOD (09/29/2021 12:36 PM CDT) [facility] Calcium Ionized 1.13 mmol/L 09/29/2021 12:43 PM CDT [facility] pH 7.48(H) 7.35 - 7.45 pH 09/29/2021 12:43 PM [facility] Ionized Calcium pH Adjusted 1.17(L) 1.19 - 1.34 mmol/L 09/29/2021 12:43 PM [facility] Blood BLOOD SPECIMEN / Unknown Venipuncture / Unknown 09/29/2021 12:36 PM CDT 09/29/2021 12:39 PM CDT Dar Kilpatrick MD LAB - CHEMISTRY OR DERABLES Performing Organization Address [facility] Co de Phone Number [address] [address], [facility] [phone] * (ABNORMAL) BASIC METABOLIC PANEL (CALCIUM TOTAL) (09/29/2021 12:36 PM CDT) [facility] BUN 19 7 - 26 mg/dL 09/29/2021 1:07 PM [facility] Creatinine 1.89(H) 0.71 - 1.16 mg/dL 09/29/2021 1:07 PM [facility] Sodium 141 136 - 145 mmol/L 09/29/2021 1:07 PM [facility] Potassium 3.8 3.5 - 4.5 mmol/L 09/29/2021 1:07 PM [facility] Chloride 104 98 - 107 mmol/L 09/29/2021 1:07 PM [facility] CO2 29 22 - 29 mmol/L 09/29/2021 1:07 PM [facility] Glucose 121(H) 70 - 115 mg/dL 09/29/2021 1:07 PM [facility] Calcium 8.0(L) 8.4 - 10.2 mg/dL 09/29/2021 1:07 PM [facility] Anion Gap 12 8 - 18 09/29/2021 1:07 PM [facility] BUN/Creatinine Ratio 10 7 - 23 09/29/2021 1:07 PM [facility] Osmolality Calculated 296 270 - 300 mOsm/kg 09/29/2021 1:07 PM [facility] eGFR by CKD-EPI 46(L) >=90 mL/min/1.7 3 m2 09/29/2021 1:07 PM [facility] Blood BLOOD SPECIMEN / Unknown Venipuncture / Unknown 09/29/2021 12:36 PM CDT 09/29/2021 12:43 PM CDT Dar Kilpatrick MD LAB - CHEMISTRY OR DERABLES [facility] [address] [place] [address], [facility] [phone] * (ABNORMAL) CBC W AUTO DIFFERENTIAL (09/29/2021 12:36 PM CDT) WBC 9.5 3.5 - 10.5 10? 3 /uL 09/29/2021 12:48 PM [facility] RBC 2.30(L) 4.30 - 5.70 10? 6 /uL 09/29/2021 12:48 PM [facility] Hemoglobin 7.2(L) 12.0 - 17.6 g/dL 09/29/2021 12:48 PM [facility] Hematocrit 20.9(L) 35.2 - 51.7 % 09/29/2021 12:48 PM [facility] MCV 90.9 80.7 - 98.3 fL 09/29/2021 12:48 PM [facility] MCH 31.3 26.7 - 34.0 pg 09/29/2021 12:48 PM [facility] MCHC 34.4 30.8 - 35.9 g/dL 09/29/2021 12:48 PM [facility] Platelet Count 106(L) 150 - 400 10? 3 /uL 09/29/2021 12:48 PM [facility] RDW-SD 46.7 36.0 - 50.0 fL 09/29/2021 12:48 PM [facility] RDW-CV 14.2 11.2 - 14.8 % 09/29/2021 12:48 PM [facility] MPV 11.1 9.4 - 12.9 fL 09/29/2021 12:48 PM [facility] nRBC Absolute 0.00 0 10? 3 /uL 09/29/2021 12:48 PM [facility] nRBC Auto 0.0 0 /100 WBC 09/29/2021 12:48 PM [facility] Neutrophils % 80.7(H) 35.0 - 70.0 % 09/29/2021 12:48 PM [facility] Lymphocytes % 9.2(L) 20.0 - 43.0 % 09/29/2021 12:48 PM [facility] Monocytes % 9.0 5.0 - 13.0 % 09/29/2021 12:48 PM [facility] Eosinophils % 0.2 0.0 - 6.0 % 09/29/2021 12:48 PM [facility] Basophil % 0.2 0.0 - 2.0 % 09/29/2021 12:48 PM [facility] Neutrophils Absolute 7.63(H) 1.60 - 7.00 10? 3 /uL 09/29/2021 12:48 PM [facility] Lymphocyte Absolute 0.87(L) 1.10 - 3.90 10? 3 /uL 09/29/2021 12:48 PM [facility] Monocytes Absolute 0.85 0.26 - 1.07 10? 3 /uL 09/29/2021 12:48 PM [facility] Eosinophils Absolute 0.02 0.00 - 0.47 10? 3 /uL 09/29/2021 12:48 PM [facility] Basophils Absolute 0.02 0.00 - 0.08 10? 3 /uL 09/29/2021 12:48 PM [facility] Immature Granulocytes % 0.7 0.0 - 1.0 % 09/29/2021 12:48 PM CDT [facility] Immature Granulocytes Absolute 0.07 09/29/2021 12:48 PM CDT [facility] Immature Platelet Fraction 5.0 1.1 - 6.2 % 09/29/2021 12:48 PM CDT [facility] Blood BLOOD SPECIMEN / Unknown Venipuncture / Unknown 09/29/2021 12:36 PM CDT 09/29/2021 12:43 PM CDT Darrell Gomez MD LAB - HEMATOLOGY ORD ERABLES Performing Organization Address City/[facility]/ZIP Co de Phone Number [address] [address], [place] [phone] * (ABNORMAL) GLUCOSE - POINT OF CARE (09/29/2021 12:23 PM CDT) Glucose WB/POC 130(H) 70 - 115 mg/dL 09/29/2021 12:24 PM CDT [facility] Specimen Type Cap Fingerstick 2021 12:24 PM CDT [facility] Blood BLOOD SPECIMEN / Unknown 09/29/2021 12:23 PM CDT 09/29/2021 12:24 PM CDT Dar Kilpatrick MD LAB - POINT OF CAR E ORDERABLES Performing Organization Address [facility]/ZIP Co de Phone Number [address] [address], [place] [phone] * (ABNORMAL) GLUCOSE - POINT OF CARE (09/29/2021 8:45 AM CDT) Glucose WB/POC 189(H) 70 - 115 mg/dL 09/29/2021 8:50 AM CDT [facility] Specimen Type Arterial 09/29/2021 8:50 AM CDT [facility] Blood BLOOD SPECIMEN / Unknown 09/29/2021 8:45 AM CDT 09/29/2021 8:50 AM CDT Dar Kilpatrick MD LAB - POINT OF CAR E ORDERABLES [facility] [address] [place] [address], [facility] [phone] * (ABNORMAL) BLOOD GASES ART + COOX PANEL (09/29/2021 6:03 AM [facility]) pH Arterial 7.47(H) 7.35 - 7.45 pH 09/29/2021 6:10 AM [facility] pO2 Arterial 133(H) 80 - 100 mmHg 09/29/2021 6:10 AM [facility] pCO2 Arterial 38 35 - 45 mmHg 6:10 AM [facility] HCO3 Arterial 28 20 - 30 mmol/l 09/29/2021 6:10 AM [facility] BE Arterial 3.8(H) -2.0 - 2.0 mmol/L 09/29/2021 6:10 AM [facility] Oxyhemoglobin Arterial 97.1 % 09/29/2021 6:10 AM [facility] Dexoyhemoglobin (HHB) % 1.6 % 09/29/2021 6:10 AM [facility] Methemoglobin <0.8 0.0 - 2.0 % 09/29/2021 6:10 AM [facility] Carboxyhemoglobin 0.8 0.0 - 2.0 % 2021 6:10 AM [facility] O2 Content Arterial 11.6 Interpret within clinical context mg/dL 09/29/2021 6:10 AM [facility] Hemoglobin by COOX 8.3(L) 12.0 - 17.6 g/dL 09/29/2021 6:10 AM [facility] O2 Saturation Arterial 98 90 - 100 % 09/29/2021 6:10 AM [facility] FI O2 Arterial 40.0 % 09/29/2021 6:10 AM [facility] Blood, arterial ARTERIAL BLOOD SPECIMEN / Unknown Arterial Puncture / Unknown 09/29/2021 6:03 AM CDT 09/29/2021 6:06 AM [facility] - 09/29/2021 6:10 AM CDT Carboxyhemoglobin Normal Concentration: Non-smokers: 0-2%; Smokers: 0-9%; Toxic: >20% Dar Kilpatrick MD LAB - BLOOD GASES ORDERABLES Performing Organization Address [facility] Co de Phone Number [address] [address], [facility] [phone] * (ABNORMAL) CALCIUM IONIZED WHOLE BLOOD (09/29/2021 6:03 AM CDT) Pathologist [facility] Calcium Ionized 1.19 mmol/L 09/29/2021 6:11 AM CDT [facility] pH 7.46(H) 7.35 - 7.45 pH 09/29/2021 6:11 AM T [facility] Ionized Calcium pH Adjusted 1.22 1.19 - 1.34 mmol/L 09/29/2021 6:11 AM T [facility] Blood BLOOD SPECIMEN / Unknown Venipuncture / Unknown 09/29/2021 6:03 AM CDT 09/29/2021 6:06 AM CDT Dar Kilpatrick MD LAB - CHEMISTRY OR DERABLES Performing Organization Address [facility] Co de Phone Number [address] [address], [facility] [phone] * (ABNORMAL) BASIC METABOLIC PANEL (CALCIUM TOTAL) (09/29/2021 6:03 AM CDT) Pathologist [facility] BUN 20 7 - 26 mg/dL 09/29/2021 6:53 AM T [facility] Creatinine 1.97(H) 0.71 - 1.16 mg/dL 09/29/2021 6:53 AM T [facility] Sodium 140 136 - 145 mmol/L 09/29/2021 6:53 AM T [facility] Potassium 3.9 3.5 - 4.5 mmol/L 09/29/2021 6:53 AM T [facility] Chloride 107 98 - 107 mmol/L 09/29/2021 6:53 AM [facility] CO2 27 22 - 29 mmol/L 09/29/2021 6:53 AM [facility] Glucose 136(H) 70 - 115 mg/dL 09/29/2021 6:53 AM [facility] Calcium 8.2(L) 8.4 - 10.2 mg/dL 09/29/2021 6:53 AM [facility] Anion Gap 10 8 - 18 09/29/2021 6:53 AM [facility] BUN/Creatinine Ratio 10 7 - 23 09/29/2021 6:53 AM [facility] Osmolality Calculated 295 270 - 300 mOsm/kg 09/29/2021 6:53 AM [facility] eGFR by CKD-EPI 44(L) >=90 mL/min/1.7 3 m2 09/29/2021 6:53 AM [facility] Blood BLOOD SPECIMEN / Unknown Venipuncture / Unknown 09/29/2021 6:03 AM CDT 09/29/2021 6:07 AM T Dar Kilpatrick MD LAB - CHEMISTRY OR DERABLES Performing Organization Address [facility]/State/ZIP Co de Phone Number [facility] [address] [place] [id number], [facility] [phone] * (ABNORMAL) CBC W AUTO DIFFERENTIAL (09/29/2021 6:03 AM T) WBC 10.4 3.5 - 10.5 10? 3 /uL 09/29/2021 6:18 AM [facility] RBC 2.48(L) 4.30 - 5.70 10? 6 /uL 09/29/2021 6:18 AM [facility] Hemoglobin 7.7(L) 12.0 - 17.6 g/dL 09/29/2021 6:18 AM [facility] Hematocrit 22.5(L) 35.2 - 51.7 % 09/29/2021 6:18 AM [facility] MCV 90.7 80.7 - 98.3 fL 09/29/2021 6:18 AM [facility] MCH 31.0 26.7 - 34.0 pg 09/29/2021 6:18 AM [facility] MCHC 34.2 30.8 - 35.9 g/dL 09/29/2021 6:18 AM [facility] Platelet Count 106(L) 150 - 400 10? 3 /uL 09/29/2021 6:18 AM [facility] RDW-SD 46.5 36.0 - 50.0 fL 09/29/2021 6:18 AM [facility] RDW-CV 14.0 11.2 - 14.8 % 09/29/2021 6:18 AM [facility] MPV 10.6 9.4 - 12.9 fL 09/29/2021 6:18 AM [facility] nRBC Absolute 0.00 0 10? 3 /uL 09/29/2021 6:18 AM [facility] nRBC Auto 0.0 0 /100 WBC 09/29/2021 6:18 AM [facility] Neutrophils % 80.3(H) 35.0 - 70.0 % 09/29/2021 6:18 AM [facility] Lymphocytes % 10.4(L) 20.0 - 43.0 % 09/29/2021 6:18 AM [facility] Monocytes % 8.3 5.0 - 13.0 % 09/29/2021 6:18 AM [facility] Eosinophils % 0.3 0.0 - 6.0 % 09/29/2021 6:18 AM [facility] Basophil % 0.2 0.0 - 2.0 % 09/29/2021 6:18 AM [facility] Neutrophils Absolute 8.32(H) 1.60 - 7.00 10? 3 /uL 09/29/2021 6:18 AM [facility] Lymphocyte Absolute 1.08(L) 1.10 - 3.90 10? 3 /uL 09/29/2021 6:18 AM [facility] Monocytes Absolute 0.86 0.26 - 1.07 10? 3 /uL 09/29/2021 6:18 AM [facility] Eosinophils Absolute 0.03 0.00 - 0.47 10? 3 /uL 09/29/2021 6:18 AM CDT [facility] Basophils Absolute 0.02 0.00 - 0.08 10? 3 /uL 09/29/2021 6:18 AM CDT [facility] Immature Granulocytes % 0.5 0.0 - 1.0 % 09/29/2021 6:18 AM CDT [facility] Immature Granulocytes Absolute 0.05 09/29/2021 6:18 AM CDT [facility] Blood BLOOD SPECIMEN / Unknown Venipuncture / Unknown 09/29/2021 6:03 AM CDT 09/29/2021 6:07 AM CDT Darrell Gomez MD LAB - HEMATOLOGY ORD ERABLES [facility] [address] [place] [address], [facility] [phone] * XR CHEST 1VW PORTABLE (09/29/2021 4:27 [...] Report dictated by Elmer Gomez MD, PhD (chairman president and chief executive officer). I, Dr. MICAELA MCCULLOUGH have personally reviewed [...] Report dictated by Elmer Gomez MD, PhD (chairman president and chief executive officer). I, Dr. MICAELA MCCULLOUGH have personally reviewed and interpreted this examination/study. This report was electronically signed by MICAELA MCCULLOUGH on 1:18 AM . Dar Kilpatrick MD DIAGNOSTIC IMAGING ORDERABLES * (ABNORMAL) GLUCOSE - POINT OF CARE (09/29/2021 3:59 AM CDT) Glucose WB/POC 136(H) 70 - 115 mg/dL 09/29/2021 4:04 AM CDT [facility] Specimen Type Arterial 09/29/2021 4:04 AM CDT [facility] Blood BLOOD SPECIMEN / Unknown 09/29/2021 3:59 AM CDT 09/29/2021 4:04 AM CDT Dar Kilpatrick MD LAB - POINT OF CAR E ORDERABLES [facility] [address] [place] [address], [place] [phone] * PHOSPHORUS BLOOD (09/29/2021 12:12 AM CDT) Phosphorus 3.6 2.8 - 5.1 mg/dL 09/29/2021 12:49 AM CDT [facility] Blood BLOOD SPECIMEN / Unknown Venipuncture / Unknown 09/29/2021 12:12 AM CDT 09/29/2021 12:18 AM CDT Dar Kilpatrick MD LAB - CHEMISTRY OR DERABLES Performing Organization Address City/[facility]/ZIP Co de Phone Number [address] [address], [facility] [phone] * MAGNESIUM BLOOD (09/29/2021 12:12 AM CDT) Magnesium 1.7 1.6 - 2.6 mg/dL 09/29/2021 12:49 AM CDT [facility] Blood BLOOD SPECIMEN / Unknown Venipuncture / Unknown 09/29/2021 12:12 AM CDT 09/29/2021 12:18 AM CDT Dar Kilpatrick MD LAB - CHEMISTRY OR DERABLES Performing Organization Address [facility] de Phone Number [address] [address], [facility] [phone] * (ABNORMAL) BLOOD GASES ART + COOX PANEL (09/29/2021 12:12 AM CDT) pH Arterial 7.44 7.35 - 7.45 pH 09/29/2021 12:19 AM T [facility] pO2 Arterial 131(H) 80 - 100 mmHg 09/29/2021 12:19 AM T [facility] pCO2 Arterial 37 35 - 45 mmHg 12:19 AM [facility] HCO3 Arterial 25 20 - 30 mmol/l 09/29/2021 12:19 AM T [facility] BE Arterial 1.0 -2.0 - 2.0 mmol/L 09/29/2021 12:19 AM [facility] Oxyhemoglobin Arterial 97.4 % 09/29/2021 12:19 AM [facility] Dexoyhemoglobin (HHB) % 1.4 % 09/29/2021 12:19 AM [facility] Methemoglobin <0.8 0.0 - 2.0 % 09/29/2021 12:19 AM [facility] Carboxyhemoglobin 0.9 0.0 - 2.0 % 2021 12:19 AM [facility] O2 Content Arterial 12.2 Interpret within clinical context mg/dL 09/29/2021 12:19 AM [facility] Hemoglobin by COOX 8.7(L) 12.0 - 17.6 g/dL 09/29/2021 12:19 AM [facility] O2 Saturation Arterial 99 90 - 100 % 09/29/2021 12:19 AM [facility] FI O2 Arterial 40.0 % 09/29/2021 12:19 AM [facility] Blood, arterial ARTERIAL BLOOD SPECIMEN / Unknown Arterial Puncture / Unknown 09/29/2021 12:12 AM [facility] 09/29/2021 12:17 AM [facility] - 09/29/2021 12:19 AM [facility] Carboxyhemoglobin Normal Concentration: Non-smokers: 0-2%; Smokers: 0-9%; Toxic: >20% Dar Kilpatrick MD LAB - BLOOD GASES ORDERABLES Performing Organization Address City/State/[facility] Co de Phone Number [address] [address], [facility] [phone] * (ABNORMAL) CALCIUM IONIZED WHOLE BLOOD (09/29/2021 12:12 AM [facility]) Calcium Ionized 1.15 mmol/L 09/29/2021 12:21 AM [facility] pH 7.43 7.35 - 7.45 pH 09/29/2021 12:21 AM [facility] Ionized Calcium pH Adjusted 1.16(L) 1.19 - 1.34 mmol/L 09/29/2021 12:21 AM [facility] Blood BLOOD SPECIMEN / Unknown Venipuncture / Unknown 09/29/2021 12:12 AM CDT 09/29/2021 12:17 AM CDT Dar Kilpatrick MD LAB - CHEMISTRY OR DERABLES [facility] [address] [place] [address], [facility] [phone] * (ABNORMAL) BASIC METABOLIC PANEL (CALCIUM TOTAL) (09/29/2021 12:12 AM CDT) BUN 18 7 - 26 mg/dL 09/29/2021 12:49 AM [facility] Creatinine 2.01(H) 0.71 - 1.16 mg/dL 09/29/2021 12:49 AM [facility] Sodium 141 136 - 145 mmol/L 09/29/2021 12:49 AM [facility] Potassium 4.1 3.5 - 4.5 mmol/L 09/29/2021 12:49 AM [facility] Chloride 109(H) 98 - 107 mmol/L 09/29/2021 12:49 AM [facility] CO2 24 22 - 29 mmol/L 09/29/2021 12:49 AM [facility] Glucose 140(H) 70 - 115 mg/dL 09/29/2021 12:49 AM [facility] Calcium 8.0(L) 8.4 - 10.2 mg/dL 09/29/2021 12:49 AM [facility] Anion Gap 12 8 - 18 09/29/2021 12:49 AM [facility] BUN/Creatinine Ratio 9 7 - 23 09/29/2021 12:49 AM [facility] Osmolality Calculated 296 270 - 300 mOsm/kg 09/29/2021 12:49 AM [facility] eGFR by CKD-EPI 43(L) >=90 mL/min/1.7 3 m2 09/29/2021 12:49 AM [facility] Blood BLOOD SPECIMEN / Unknown Venipuncture / Unknown 09/29/2021 12:12 AM CDT 09/29/2021 12:18 AM CDT Dar Kilpatrick MD LAB - CHEMISTRY OR DERABLES [facility] [address] [place] [address], [facility] [phone] * (ABNORMAL) CBC W AUTO DIFFERENTIAL (09/29/2021 12:12 AM CDT) WBC 11.2(H) 3.5 - 10.5 10? 3 /uL 09/29/2021 12:32 AM [facility] RBC 2.63(L) 4.30 - 5.70 10? 6 /uL 09/29/2021 12:32 AM [facility] Hemoglobin 8.2(L) 12.0 - 17.6 g/dL 09/29/2021 12:32 AM [facility] Hematocrit 23.9(L) 35.2 - 51.7 % 09/29/2021 12:32 AM [facility] MCV 90.9 80.7 - 98.3 fL 09/29/2021 12:32 AM [facility] MCH 31.2 26.7 - 34.0 pg 09/29/2021 12:32 AM [facility] MCHC 34.3 30.8 - 35.9 g/dL 09/29/2021 12:32 AM [facility] Platelet Count 126(L) 150 - 400 10? 3 /uL 09/29/2021 12:32 AM [facility] RDW-SD 46.6 36.0 - 50.0 fL 09/29/2021 12:32 AM [facility] RDW-CV 14.0 11.2 - 14.8 % 09/29/2021 12:32 AM [facility] MPV 10.7 9.4 - 12.9 fL 09/29/2021 12:32 AM [facility] nRBC Absolute 0.00 0 10? 3 /uL 09/29/2021 12:32 AM [facility] nRBC Auto 0.0 0 /100 WBC 09/29/2021 12:32 AM [facility] Neutrophils % 82.3(H) 35.0 - 70.0 % 09/29/2021 12:32 AM [facility] Lymphocytes % 8.9(L) 20.0 - 43.0 % 09/29/2021 12:32 AM [facility] Monocytes % 8.2 5.0 - 13.0 % 09/29/2021 12:32 AM [facility] Eosinophils % 0.1 0.0 - 6.0 % 09/29/2021 12:32 AM [facility] Basophil % 0.1 0.0 - 2.0 % 09/29/2021 12:32 AM [facility] Neutrophils Absolute 9.20(H) 1.60 - 7.00 10? 3 /uL 09/29/2021 12:32 AM [facility] Lymphocyte Absolute 1.00(L) 1.10 - 3.90 10? 3 /uL 09/29/2021 12:32 AM [facility] Monocytes Absolute 0.92 0.26 - 1.07 10? 3 /uL 09/29/2021 12:32 AM [facility] Eosinophils Absolute 0.01 0.00 - 0.47 10? 3 /uL 09/29/2021 12:32 AM [facility] Basophils Absolute 0.01 0.00 - 0.08 10? 3 /uL 09/29/2021 12:32 AM [facility] Immature Granulocytes % 0.4 0.0 - 1.0 % 09/29/2021 12:32 AM [facility] Immature Granulocytes Absolute 0.05 09/29/2021 12:32 AM [facility] Immature Platelet Fraction 4.5 1.1 - 6.2 % 09/29/2021 12:32 AM [facility] Blood BLOOD SPECIMEN / Unknown Venipuncture / Unknown 09/29/2021 12:12 AM CDT 09/29/2021 12:18 AM [facility] Darrell Gomez MD LAB - HEMATOLOGY ORD ERABLES [facility] [address] [place] [address], [place] [phone] * (ABNORMAL) GLUCOSE - POINT OF CARE (09/29/2021 12:11 AM CDT) Glucose WB/POC 142(H) 70 - 115 mg/dL 09/29/2021 12:12 AM CDT [facility] Specimen Type Arterial 09/29/2021 12:12 AM CDT [facility] Blood BLOOD SPECIMEN / Unknown 09/29/2021 12:11 AM CDT 09/29/2021 12:12 AM CDT Dar Kilpatrick MD LAB - POINT OF CAR E ORDERABLES [address] [address], [place] [phone] * (ABNORMAL) GLUCOSE - POINT OF CARE (09/28/2021 8:03 PM CDT) Glucose WB/POC 136(H) 70 - 115 mg/dL 09/28/2021 8:05 PM CDT [facility] Specimen Type Cap Fingerstick 2021 8:05 PM CDT [facility] Blood BLOOD SPECIMEN / Unknown 09/28/2021 8:03 PM CDT 09/28/2021 8:05 PM CDT Dar Kilpatrick MD LAB - POINT OF CAR E ORDERABLES [address] [address], [place] [phone] * (ABNORMAL) BLOOD GASES ART + COOX PANEL (09/28/2021 5:49 PM CDT) pH Arterial 7.39 7.35 - 7.45 pH 09/28/2021 5:58 PM CDT [facility] pO2 Arterial 129(H) 80 - 100 mmHg 09/28/2021 5:58 PM CDT [facility] pCO2 Arterial 34(L) 35 - 45 mmHg 5:58 PM CDT [facility] HCO3 Arterial 21 20 - 30 mmol/l 09/28/2021 5:58 PM T [facility] BE Arterial -3.8(L) -2.0 - 2.0 mmol/L 09/28/2021 5:58 PM [facility] Oxyhemoglobin Arterial 98.3 % 09/28/2021 5:58 PM [facility] Dexoyhemoglobin (HHB) % 0.3 % 09/28/2021 5:58 PM [facility] Methemoglobin <0.8 0.0 - 2.0 % 09/28/2021 5:58 PM [facility] Carboxyhemoglobin 1.1 0.0 - 2.0 % 2021 5:58 PM [facility] O2 Content Arterial 13.2 Interpret within clinical context mg/dL 09/28/2021 5:58 PM [facility] Hemoglobin by COOX 9.4(L) 12.0 - 17.6 g/dL 09/28/2021 5:58 PM [facility] O2 Saturation Arterial 100 90 - 100 % 09/28/2021 5:58 PM [facility] FI O2 Arterial 40.0 % 09/28/2021 5:58 PM [facility] Blood, arterial ARTERIAL BLOOD SPECIMEN / Unknown Arterial Puncture / Unknown 09/28/2021 5:49 PM CDT 09/28/2021 5:53 PM CDT Narrative [facility] - 09/28/2021 5:58 PM CDT Carboxyhemoglobin Normal Concentration: Non-smokers: 0-2%; Smokers: 0-9%; Toxic: >20% Dar Kilpatrick MD LAB - BLOOD GASES ORDERABLES [facility] [address] [place] [address], [facility] [phone] * CALCIUM IONIZED WHOLE BLOOD (09/28/2021 5:49 PM CDT) Calcium Ionized 1.21 mmol/L 09/28/2021 5:59 PM [facility] pH 7.37 7.35 - 7.45 pH 09/28/2021 5:59 PM [facility] Ionized Calcium pH Adjusted 1.20 1.19 - 1.34 mmol/L 09/28/2021 5:59 PM [facility] Blood BLOOD SPECIMEN / Unknown Venipuncture / Unknown 09/28/2021 5:49 PM CDT 09/28/2021 5:53 PM CDT Dar Kilpatrick MD LAB - CHEMISTRY OR DERABLES [facility] [address] [place] [address], [facility] [phone] * (ABNORMAL) BASIC METABOLIC PANEL (CALCIUM TOTAL) (09/28/2021 5:49 PM CDT) BUN 17 7 - 26 mg/dL 09/28/2021 6:22 PM [facility] Creatinine 1.96(H) 0.71 - 1.16 mg/dL 09/28/2021 6:22 PM [facility] Sodium 141 136 - 145 mmol/L 09/28/2021 6:22 PM [facility] Potassium 4.8(H) 3.5 - 4.5 mmol/L 09/28/2021 6:22 PM [facility] Chloride 113(H) 98 - 107 mmol/L 09/28/2021 6:22 PM [facility] CO2 20(L) 22 - 29 mmol/L 09/28/2021 6:22 PM [facility] Glucose 125(H) 70 - 115 mg/dL 09/28/2021 6:22 PM [facility] Calcium 8.3(L) 8.4 - 10.2 mg/dL 09/28/2021 6:22 PM [facility] Anion Gap 13 8 - 18 09/28/2021 6:22 PM [facility] BUN/Creatinine Ratio 9 7 - 23 09/28/2021 6:22 PM [facility] Osmolality Calculated 295 270 - 300 mOsm/kg 09/28/2021 6:22 PM [facility] eGFR by CKD-EPI 44(L) >=90 mL/min/1.7 3 m2 09/28/2021 6:22 PM [facility] Blood BLOOD SPECIMEN / Unknown Venipuncture / Unknown 09/28/2021 5:49 PM CDT 09/28/2021 5:54 PM CDT Dar Kilpatrick MD LAB - CHEMISTRY OR DERABLES Performing Organization Address [facility] Co de Phone Number [facility] [address] [place] [address], [facility] [phone] * (ABNORMAL) CBC W AUTO DIFFERENTIAL (09/28/2021 5:49 PM CDT) WBC 12.6(H) 3.5 - 10.5 10? 3 /uL 09/28/2021 5:58 PM [facility] RBC 2.93(L) 4.30 - 5.70 10? 6 /uL 09/28/2021 5:58 PM [facility] Hemoglobin 9.2(L) 12.0 - 17.6 g/dL 09/28/2021 5:58 PM [facility] Hematocrit 26.7(L) 35.2 - 51.7 % 09/28/2021 5:58 PM [facility] MCV 91.1 80.7 - 98.3 fL 09/28/2021 5:58 PM [facility] MCH 31.4 26.7 - 34.0 pg 09/28/2021 5:58 PM [facility] MCHC 34.5 30.8 - 35.9 g/dL 09/28/2021 5:58 PM [facility] Platelet Count 144(L) 150 - 400 10? 3 /uL 09/28/2021 5:58 PM [facility] RDW-SD 47.6 36.0 - 50.0 fL 09/28/2021 5:58 PM [facility] RDW-CV 14.1 11.2 - 14.8 % 09/28/2021 5:58 PM [facility] MPV 10.3 9.4 - 12.9 fL 09/28/2021 5:58 PM [facility] nRBC Absolute 0.00 0 10? 3 /uL 09/28/2021 5:58 PM [facility] nRBC Auto 0.0 0 /100 WBC 09/28/2021 5:58 PM [facility] Neutrophils % 84.9(H) 35.0 - 70.0 % 09/28/2021 5:58 PM [facility] Lymphocytes % 7.3(L) 20.0 - 43.0 % 09/28/2021 5:58 PM [facility] Monocytes % 7.1 5.0 - 13.0 % 09/28/2021 5:58 PM [facility] Eosinophils % 0.0 0.0 - 6.0 % 09/28/2021 5:58 PM [facility] Basophil % 0.1 0.0 - 2.0 % 09/28/2021 5:58 PM [facility] Neutrophils Absolute 10.72(H) 1.60 - 7.00 10? 3 /uL 09/28/2021 5:58 PM [facility] Lymphocyte Absolute 0.92(L) 1.10 - 3.90 10? 3 /uL 09/28/2021 5:58 PM [facility] Monocytes Absolute 0.89 0.26 - 1.07 10? 3 /uL 09/28/2021 5:58 PM [facility] Eosinophils Absolute 0.00 0.00 - 0.47 10? 3 /uL 09/28/2021 5:58 PM [facility] Basophils Absolute 0.01 0.00 - 0.08 10? 3 /uL 09/28/2021 5:58 PM [facility] Immature Granulocytes % 0.6 0.0 - 1.0 % 09/28/2021 5:58 PM [facility] Immature Granulocytes Absolute 0.08 09/28/2021 5:58 PM [facility] Immature Platelet Fraction 4.1 1.1 - 6.2 % 09/28/2021 5:58 PM [facility] Blood BLOOD SPECIMEN / Unknown Venipuncture / Unknown 09/28/2021 5:49 PM CDT 09/28/2021 5:54 PM CDT Darrell Gomez MD LAB - HEMATOLOGY ORD ERABLES [facility] [address] [place] [address], [facility] [phone] * (ABNORMAL) GLUCOSE - POINT OF CARE (09/28/2021 4:05 PM CDT) Pathologist [facility] Glucose WB/POC 129(H) 70 - 115 mg/dL 09/28/2021 4:10 PM CDT [facility] Specimen Type Arterial 09/28/2021 4:10 PM CDT [facility] Blood BLOOD SPECIMEN / Unknown 09/28/2021 4:05 PM CDT 09/28/2021 4:10 PM CDT Dar Kilptarick MD LAB - POINT OF CAR E ORDERABLES Performing Organization Address City/[facility]/ZIP Co de Phone Number [facility] [address] [place] [address], [place] [phone] * (ABNORMAL) BLOOD GASES ART + COOX PANEL (09/28/2021 11:54 AM CDT) Pathologist [facility] pH Arterial 7.33(L) 7.35 - 7.45 pH 09/28/2021 12:04 PM [facility] pO2 Arterial 141(H) 80 - 100 mmHg 09/28/2021 12:04 PM [facility] pCO2 Arterial 37 35 - 45 mmHg 12:04 PM T [facility] HCO3 Arterial 20 20 - 30 mmol/l 09/28/2021 12:04 PM T [facility] BE Arterial -5.9(L) -2.0 - 2.0 mmol/L 09/28/2021 12:04 PM [facility] Oxyhemoglobin Arterial 97.5 % 09/28/2021 12:04 PM T [facility] Dexoyhemoglobin (HHB) % 0.7 % 09/28/2021 12:04 PM [facility] Methemoglobin 0.8 0.0 - 2.0 % 09/28/2021 12:04 PM [facility] Carboxyhemoglobin 1.0 0.0 - 2.0 % 2021 12:04 PM [facility] O2 Content Arterial 14.9 Interpret within clinical context mg/dL 09/28/2021 12:04 PM [facility] Hemoglobin by COOX 10.7(L) 12.0 - 17.6 g/dL 09/28/2021 12:04 PM [facility] O2 Saturation Arterial 99 90 - 100 % 09/28/2021 12:04 PM [facility] FI O2 Arterial 40.0 % 09/28/2021 12:04 PM [facility] Blood, arterial ARTERIAL BLOOD SPECIMEN / Unknown Arterial Puncture / Unknown 09/28/2021 11:54 AM CDT 09/28/2021 12:01 PM CDT Narrative [facility] - 09/28/2021 12:04 PM [facility] Carboxyhemoglobin Normal Concentration: Non-smokers: 0-2%; Smokers: 0-9%; Toxic: >20% Dar Kilpatrick MD LAB - BLOOD GASES ORDERABLES Performing Organization Address City/State/[facility] Co de Phone Number [address] [address], [facility] [phone] * (ABNORMAL) CALCIUM IONIZED WHOLE BLOOD (09/28/2021 11:54 AM CDT) Pathologist [facility] Calcium Ionized 1.22 mmol/L 09/28/2021 12:05 PM [facility] pH 7.33(L) 7.35 - 7.45 pH 09/28/2021 12:05 PM [facility] Ionized Calcium pH Adjusted 1.19 1.19 - 1.34 mmol/L 09/28/2021 12:05 PM [facility] Blood BLOOD SPECIMEN / Unknown Venipuncture / Unknown 09/28/2021 11:54 AM CDT 09/28/2021 12:01 PM CDT Dar Kilpatrick MD LAB - CHEMISTRY OR DERABLES Performing Organization Address City/[facility]/ZIP Co de Phone Number [facility] [address] [place] [address], [facility] [phone] * (ABNORMAL) BASIC METABOLIC PANEL (CALCIUM TOTAL) (09/28/2021 11:54 AM CDT) BUN 15 7 - 26 mg/dL 09/28/2021 1:22 PM [facility] Creatinine 1.78(H) 0.71 - 1.16 mg/dL 09/28/2021 1:22 PM [facility] Sodium 141 136 - 145 mmol/L 09/28/2021 1:22 PM [facility] Potassium 5.1(H) 3.5 - 4.5 mmol/L 09/28/2021 1:22 PM [facility] Chloride 113(H) 98 - 107 mmol/L 09/28/2021 1:22 PM [facility] CO2 19(L) 22 - 29 mmol/L 09/28/2021 1:22 PM [facility] Glucose 123(H) 70 - 115 mg/dL 09/28/2021 1:22 PM [facility] Calcium 8.5 8.4 - 10.2 mg/dL 09/28/2021 1:22 PM [facility] Anion Gap 14 8 - 18 09/28/2021 1:22 PM [facility] BUN/Creatinine Ratio 8 7 - 23 09/28/2021 1:22 PM [facility] Osmolality Calculated 294 270 - 300 mOsm/kg 09/28/2021 1:22 PM [facility] eGFR by CKD-EPI 49(L) >=90 mL/min/1.7 3 m2 09/28/2021 1:22 PM [facility] Blood BLOOD SPECIMEN / Unknown Venipuncture / Unknown 09/28/2021 11:54 AM CDT 09/28/2021 12:24 PM CDT Dar Kilpatrick MD LAB - CHEMISTRY OR DERABLES [facility] [address] [place] [address], [facility] [phone] * (ABNORMAL) CBC W AUTO DIFFERENTIAL (09/28/2021 11:54 AM CDT) WBC 15.2(H) 3.5 - 10.5 10? 3 /uL 09/28/2021 12:35 PM [facility] RBC 3.31(L) 4.30 - 5.70 10? 6 /uL 09/28/2021 12:35 PM [facility] Hemoglobin 10.3(L) 12.0 - 17.6 g/dL 09/28/2021 12:35 PM [facility] Hematocrit 30.5(L) 35.2 - 51.7 % 09/28/2021 12:35 PM [facility] MCV 92.1 80.7 - 98.3 fL 09/28/2021 12:35 PM [facility] MCH 31.1 26.7 - 34.0 pg 09/28/2021 12:35 PM [facility] MCHC 33.8 30.8 - 35.9 g/dL 09/28/2021 12:35 PM [facility] Platelet Count 143(L) 150 - 400 10? 3 /uL 09/28/2021 12:35 PM [facility] RDW-SD 47.8 36.0 - 50.0 fL 09/28/2021 12:35 PM [facility] RDW-CV 14.1 11.2 - 14.8 % 09/28/2021 12:35 PM [facility] MPV 10.5 9.4 - 12.9 fL 09/28/2021 12:35 PM [facility] nRBC Absolute 0.00 0 10? 3 /uL 09/28/2021 12:35 PM [facility] nRBC Auto 0.0 0 /100 WBC 09/28/2021 12:35 PM [facility] Neutrophils % 87.4(H) 35.0 - 70.0 % 09/28/2021 12:35 PM [facility] Lymphocytes % 4.8(L) 20.0 - 43.0 % 09/28/2021 12:35 PM T [facility] Monocytes % 7.3 5.0 - 13.0 % 09/28/2021 12:35 PM [facility] Eosinophils % 0.0 0.0 - 6.0 % 09/28/2021 12:35 PM [facility] Basophil % 0.1 0.0 - 2.0 % 09/28/2021 12:35 PM T [facility] Neutrophils Absolute 13.28(H) 1.60 - 7.00 10? 3 /uL 09/28/2021 12:35 PM [facility] Lymphocyte Absolute 0.73(L) 1.10 - 3.90 10? 3 /uL 09/28/2021 12:35 PM [facility] Monocytes Absolute 1.11(H) 0.26 - 1.07 10? 3 /uL 09/28/2021 12:35 PM [facility] Eosinophils Absolute 0.00 0.00 - 0.47 10? 3 /uL 09/28/2021 12:35 PM T [facility] Basophils Absolute 0.01 0.00 - 0.08 10? 3 /uL 09/28/2021 12:35 PM [facility] Immature Granulocytes % 0.4 0.0 - 1.0 % 09/28/2021 12:35 PM [facility] Immature Granulocytes Absolute 0.06 09/28/2021 12:35 PM [facility] Blood BLOOD SPECIMEN / Unknown Venipuncture / Unknown 09/28/2021 11:54 AM CDT 09/28/2021 12:24 PM CDT Darrell Gomez MD LAB - HEMATOLOGY ORD ERABLES [facility] [address] [place] [phone], [facility] [phone] * (ABNORMAL) GLUCOSE - POINT OF CARE (09/28/2021 8:21 AM CDT) Glucose WB/POC 137(H) 70 - 115 mg/dL 09/28/2021 8:22 AM [facility] Specimen Type Cap Fingerstick 2021 8:22 AM [facility] Blood BLOOD SPECIMEN / Unknown 09/28/2021 8:21 AM CDT 09/28/2021 8:22 AM CDT Dar Kilpatrick MD LAB - POINT OF CAR E ORDERABLES [facility] [address] [place] [id number], [facility] [phone] * (ABNORMAL) CBC W AUTO DIFFERENTIAL (09/28/2021 6:14 AM CDT) WBC 19.6(H) 3.5 - 10.5 10? 3 /uL 09/28/2021 6:29 AM [facility] RBC 3.44(L) 4.30 - 5.70 10? 6 /uL 09/28/2021 6:29 AM [facility] Hemoglobin 10.7(L) 12.0 - 17.6 g/dL 09/28/2021 6:29 AM [facility] Hematocrit 31.8(L) 35.2 - 51.7 % 09/28/2021 6:29 AM [facility] MCV 92.4 80.7 - 98.3 fL 09/28/2021 6:29 AM [facility] MCH 31.1 26.7 - 34.0 pg 09/28/2021 6:29 AM [facility] MCHC 33.6 30.8 - 35.9 g/dL 09/28/2021 6:29 AM [facility] Platelet Count 181 150 - 400 10? 3 /uL 09/28/2021 6:29 AM [facility] RDW-SD 48.0 36.0 - 50.0 fL 09/28/2021 6:29 AM [facility] RDW-CV 14.1 11.2 - 14.8 % 09/28/2021 6:29 AM [facility] MPV 9.9 9.4 - 12.9 fL 09/28/2021 6:29 AM [facility] nRBC Absolute 0.00 0 10? 3 /uL 09/28/2021 6:29 AM [facility] nRBC Auto 0.0 0 /100 WBC 09/28/2021 6:29 AM [facility] Neutrophils % 88.5(H) 35.0 - 70.0 % 09/28/2021 6:29 AM [facility] Lymphocytes % 3.2(L) 20.0 - 43.0 % 09/28/2021 6:29 AM [facility] Monocytes % 7.7 5.0 - 13.0 % 09/28/2021 6:29 AM [facility] Eosinophils % 0.0 0.0 - 6.0 % 09/28/2021 6:29 AM [facility] Basophil % 0.2 0.0 - 2.0 % 09/28/2021 6:29 AM [facility] Neutrophils Absolute 17.37(H) 1.60 - 7.00 10? 3 /uL 09/28/2021 6:29 AM [facility] Lymphocyte Absolute 0.63(L) 1.10 - 3.90 10? 3 /uL 09/28/2021 6:29 AM [facility] Monocytes Absolute 1.51(H) 0.26 - 1.07 10? 3 /uL 09/28/2021 6:29 AM [facility] Eosinophils Absolute 0.00 0.00 - 0.47 10? 3 /uL 09/28/2021 6:29 AM [facility] Basophils Absolute 0.03 0.00 - 0.08 10? 3 /uL 09/28/2021 6:29 AM [facility] Immature Granulocytes % 0.4 0.0 - 1.0 % 09/28/2021 6:29 AM [facility] Immature Granulocytes Absolute 0.08 09/28/2021 6:29 AM [facility] Blood BLOOD SPECIMEN / Unknown Venipuncture / Unknown 09/28/2021 6:14 AM CDT 09/28/2021 6:20 AM T Darrell Gomez MD LAB - HEMATOLOGY ORD ERABLES [facility] [address] [place] [address], [facility] [phone] * XR CHEST 1VW PORTABLE (09/28/2021 4:41 [...] prior CT. Dictated by Donald Ramos MD (chairman president and chief executive officer). Dr. JHON Connor MD have personally reviewed [...] on priorCT. Dictated by Donald Ramos MD (chairman president and chief executive officer). Dr. JHON Connor MD have personally reviewed and interpreted this examination/study. This report was electronically signed by JHON LEBLANC MD on 09/28/2021 2:49 PM . Dar Kilpatrick MD DIAGNOSTIC IMAGING ORDERABLES * (ABNORMAL) GLUCOSE - POINT OF CARE (09/28/2021 3:55 AM CDT) Glucose WB/POC 135(H) 70 - 115 mg/dL 09/28/2021 3:59 AM CDT [facility] Specimen Type Arterial 09/28/2021 3:59 AM CDT [facility] Blood BLOOD SPECIMEN / Unknown 09/28/2021 3:55 AM CDT 09/28/2021 3:59 AM CDT Dar Kilpatrick MD LAB - POINT OF CAR E ORDERABLES [facility] [address], [place] [address], [facility] [phone] * (ABNORMAL) HEMOGLOBIN A1C (09/28/2021 3:55 AM CDT) Hemoglobin A1c 5.9(H) <=5.6 % 09/28/2021 9:03 AM CDT [facility] Estimated Average Glucose 123 mg/dL 09/28/2021 9:03 AM CDT [facility] Comment: HbA1c Interpretation: Normal : < 5.7% Pre-diabetes: 5.7-6.4% Diabetes: Equal to or greater than 6.5% Test results diagnostic of diabetes should be repeated for confirmation. Treatment target values recommended by ADA and other clinical organizations should be used to evaluate metabolic control in patients. Reference: [place] [employer], Standards of Care in Diabetes [...] Gomez MD LAB - CHEMISTRY DANIAL DUPREE [address] [address], [place] [phone] * (ABNORMAL) GLUCOSE - POINT OF CARE (09/28/2021 2:13 AM CDT) Glucose WB/POC 126(H) 70 - 115 mg/dL 09/28/2021 2:18 AM CDT [facility] Specimen Type Arterial 09/28/2021 2:18 AM CDT [facility] Blood BLOOD SPECIMEN / Unknown 09/28/2021 2:13 AM CDT 09/28/2021 2:18 AM CDT Dar Kilpatrick MD LAB - POINT OF CAR E ORDERABLES Performing Organization Address City/[facility]/ZIP Co de Phone Number [address] [address], [place] [phone] * BLOOD TYPE VERIFICATION (09/28/2021 2:08 AM CDT) ABO Rh O POS 09/28/2021 2:4 6 AM CDT [facility] Blood Bank BLOOD SPECIMEN / Unknown Lab Venipuncture / Unknown 09/28/2021 2:08 AM CDT 09/28/2021 2:18 AM CDT Dar Kilpatrick MD LAB - BLOOD BANK O RDERABLES [facility] [address] [place] [address], [place] [phone] * (ABNORMAL) CBC W AUTO DIFFERENTIAL (09/27/2021 10:55 PM CDT) WBC 14.9(H) 3.5 - 10.5 10? 3 /uL 09/27/2021 11:23 PM CDT [facility] RBC 3.28(L) 4.30 - 5.70 10? 6 /uL 09/27/2021 11:23 PM [facility] Hemoglobin 10.3(L) 12.0 - 17.6 g/dL 09/27/2021 11:23 PM [facility] Hematocrit 30.7(L) 35.2 - 51.7 % 09/27/2021 11:23 PM [facility] MCV 93.6 80.7 - 98.3 fL 09/27/2021 11:23 PM [facility] MCH 31.4 26.7 - 34.0 pg 09/27/2021 11:23 PM [facility] MCHC 33.6 30.8 - 35.9 g/dL 09/27/2021 11:23 PM [facility] Platelet Count 148(L) 150 - 400 10? 3 /uL 09/27/2021 11:23 PM [facility] RDW-SD 47.8 36.0 - 50.0 fL 09/27/2021 11:23 PM [facility] RDW-CV 14.0 11.2 - 14.8 % 09/27/2021 11:23 PM [facility] MPV 9.9 9.4 - 12.9 fL 09/27/2021 11:23 PM [facility] nRBC Absolute 0.00 0 10? 3 /uL 09/27/2021 11:23 PM [facility] nRBC Auto 0.0 0 /100 WBC 09/27/2021 11:23 PM [facility] Neutrophils % 85.0(H) 35.0 - 70.0 % 09/27/2021 11:23 PM [facility] Lymphocytes % 8.3(L) 20.0 - 43.0 % 09/27/2021 11:23 PM [facility] Monocytes % 5.2 5.0 - 13.0 % 09/27/2021 11:23 PM [facility] Eosinophils % 0.5 0.0 - 6.0 % 09/27/2021 11:23 PM [facility] Basophil % 0.3 0.0 - 2.0 % 09/27/2021 11:23 PM [facility] Neutrophils Absolute 12.68(H) 1.60 - 7.00 10? 3 /uL 09/27/2021 11:23 PM CDT [facility] Lymphocyte Absolute 1.24 1.10 - 3.90 10? 3 /uL 09/27/2021 11:23 PM CDT [facility] Monocytes Absolute 0.77 0.26 - 1.07 10? 3 /uL 09/27/2021 11:23 PM CDT [facility] Eosinophils Absolute 0.07 0.00 - 0.47 10? 3 /uL 09/27/2021 11:23 PM CDT [facility] Basophils Absolute 0.04 0.00 - 0.08 10? 3 /uL 09/27/2021 11:23 PM CDT [facility] Immature Granulocytes % 0.7 0.0 - 1.0 % 09/27/2021 11:23 PM CDT [facility] Immature Granulocytes Absolute 0.10 09/27/2021 11:23 PM CDT [facility] Blood BLOOD SPECIMEN / Unknown Venipuncture / Unknown 09/27/2021 10:55 PM CDT 09/27/2021 11:06 PM CDT Darrell Gomez MD LAB - HEMATOLOGY ORD ERABLES [address] [address], [facility] [phone] * PHOSPHORUS BLOOD (09/27/2021 10:55 PM CDT) Phosphorus 3.9 2.8 - 5.1 mg/dL 09/27/2021 11:36 PM CDT [facility] Blood BLOOD SPECIMEN / Unknown Venipuncture / Unknown 09/27/2021 10:55 PM CDT 09/27/2021 11:05 PM CDT Dar Kilpatrick MD LAB - CHEMISTRY OR DERABLES [address] [address], [facility] [phone] * MAGNESIUM BLOOD (09/27/2021 10:55 PM CDT) Magnesium 1.7 1.6 - 2.6 mg/dL 09/27/2021 11:36 PM [facility] Blood BLOOD SPECIMEN / Unknown Venipuncture / Unknown 09/27/2021 10:55 PM CDT 09/27/2021 11:05 PM CDT Dar Kilpatrick MD LAB - CHEMISTRY OR DERABLES Performing Organization Address [facility]/ZIP Co de Phone Number [facility] [address] [place] [address], [facility] [phone] * (ABNORMAL) BASIC METABOLIC PANEL (CALCIUM TOTAL) (09/27/2021 10:55 PM CDT) Pathologist [facility] BUN 12 7 - 26 mg/dL 09/27/2021 11:36 PM [facility] Creatinine 1.56(H) 0.71 - 1.16 mg/dL 09/27/2021 11:36 PM [facility] Sodium 139 136 - 145 mmol/L 09/27/2021 11:36 PM [facility] Potassium 5.0(H) 3.5 - 4.5 mmol/L 09/27/2021 11:36 PM [facility] Chloride 113(H) 98 - 107 mmol/L 09/27/2021 11:36 PM [facility] CO2 21(L) 22 - 29 mmol/L 09/27/2021 11:36 PM [facility] Glucose 112 70 - 115 mg/dL 09/27/2021 11:36 PM [facility] Calcium 8.0(L) 8.4 - 10.2 mg/dL 09/27/2021 11:36 PM [facility] Anion Gap 10 8 - 18 09/27/2021 11:36 PM [facility] BUN/Creatinine Ratio 8 7 - 23 09/27/2021 11:36 PM [facility] Osmolality Calculated 289 270 - 300 mOsm/kg 09/27/2021 11:36 PM [facility] eGFR by CKD-EPI 58(L) >=90 mL/min/1.7 3 m2 09/27/2021 11:36 PM [facility] Blood BLOOD SPECIMEN / Unknown Venipuncture / Unknown 09/27/2021 10:55 PM CDT 09/27/2021 11:05 PM T Dar Kilpatrick MD LAB - CHEMISTRY OR DERABLES [facility] [address] [place] [address], [facility] [phone] * (ABNORMAL) BLOOD GASES ART + COOX PANEL (09/27/2021 10:55 PM CDT) pH Arterial 7.28(L) 7.35 - 7.45 pH 09/27/2021 11:13 PM [facility] pO2 Arterial 331(H) 80 - 100 mmHg 09/27/2021 11:13 PM [facility] pCO2 Arterial 44 35 - 45 mmHg 11:13 PM [facility] HCO3 Arterial 21 20 - 30 mmol/l 09/27/2021 11:13 PM [facility] BE Arterial -5.8(L) -2.0 - 2.0 mmol/L 09/27/2021 11:13 PM [facility] Oxyhemoglobin Arterial 96.7 % 09/27/2021 11:13 PM [facility] Dexoyhemoglobin (HHB) % 0.3 % 09/27/2021 11:13 PM [facility] Methemoglobin <0.8 0.0 - 2.0 % 09/27/2021 11:13 PM [facility] Carboxyhemoglobin 2.5(H) 0.0 - 2.0 % 2021 11:13 PM [facility] O2 Content Arterial 15.2 Interpret within clinical context mg/dL 09/27/2021 11:13 PM [facility] Hemoglobin by COOX 10.5(L) 12.0 - 15.6 g/dL 09/27/2021 11:13 PM [facility] O2 Saturation Arterial 100 90 - 100 % 09/27/2021 11:13 PM [facility] FI O2 Arterial 100.0 % 09/27/2021 11:13 PM CDT [facility] Blood, arterial ARTERIAL BLOOD SPECIMEN / Unknown Arterial Puncture / Unknown 09/27/2021 10:55 PM CDT 09/27/2021 11:04 PM CDT Narrative [facility] - 09/27/2021 11:13 PM CDT Carboxyhemoglobin Normal Concentration: Non-smokers: 0-2%; Smokers: 0-9%; Toxic: >20% Dar Kilpatrick MD LAB - BLOOD GASES ORDERABLES [facility] [address] [place] [address], [facility] [phone] * 4 Units (09/27/2021 10:23 PM CDT) Unit Description LR Whole BLood [facility] Unit ABO O [facility] Unit POS [facility] Product [facility] [id number] [facility] Unit Donor # [id number] [facility] Unit Status transfused [facility] Product [facility] [id number] [facility] Blood Type Barcode 5100 [facility] Expiration Date [facility] Unit Description LR Whole BLood [facility] Unit ABO O [facility] Unit POS [facility] Product [facility] [id number] [facility] Unit Donor # [id number] [facility] Unit Status transfused [facility] Product [facility] [id number] [facility] Blood Type Barcode 5100 [facility]piration Date [facility] Unit Description LR Whole BLood [facility] Unit ABO O [facility] Unit POS [facility] Product [facility] [id number] [facility] Unit Donor # [id number] [facility] Unit Status transfused [facility] Product [facility] [id number] [facility] Blood Type Barcode 5100 [facility]piration Date [facility] Unit Description LR Whole BLood [facility] Unit ABO O [facility] Unit Rh POS [facility] Product [facility] [id number] [facility] Unit Donor # [id number] [facility] Unit Status transfused [facility] Product Code [id number] [facility] Blood Type Barcode 5100 [facility] Expiration Date S BLOOD BANK LAB Blood Bank BLOOD SPECIMEN / Unknown 09/27/2021 9:39 PM CDT Darrell Gomez MD LAB - BLOOD BANK ORD ERABLES [facility] [address] [place] [address], [facility] [phone] * CT LUMBAR SPINE WO CONTRAST - [...] right hemopneumothorax). Dictated by Brett Biswas MD (chairman president and chief executive officer) IDr. KEVIN M.D. have personally reviewed and [...] right hemopneumothorax). Dictated by Brett Biswas MD (chairman president and chief executive officer) I, Dr. KEVIN ABEBE M.D. have personally [...] right hemopneumothorax). Dictated by Brett Biswas MD (chairman president and chief executive officer) I, Dr. KEVIN ABEBE M.D. have personally [...] right hemopneumothorax). Dictated by Brett Biswas MD (chairman president and chief executive officer) I, Dr. KEVIN ABEBE M.D. have personally [...] right hemopneumothorax). Dictated by Brett Biswas MD (chairman president and chief executive officer) I, Dr. KEVIN ABEBE M.D. have personally [...] right hemopneumothorax). Dictated by Brett Biswas MD (chairman president and chief executive officer) I, Dr. KEVIN ABEBE M.D. have personally [...] right hemopneumothorax). Dictated by Brett Biswas MD (chairman president and chief executive officer) I, Dr. KEVIN ABEBE M.D. have personally [...] right hemopneumothorax). Dictated by Brett Biswas MD (chairman president and chief executive officer) I, Dr. KEVIN ABEBE M.D. have personally [...] right hemopneumothorax). Dictated by Brett Biswas MD (chairman president and chief executive officer) I, Dr. KEVIN ABEBE M.D. have personally [...] right hemopneumothorax). Dictated by Brett Biswas MD (chairman president and chief executive officer) Dr. KEVIN Connor M.D. have personally reviewed [...] ??Consent obtained: ??Verbal ??Consent given by: ??Patient [place] protocol: ??Patient identity confirmed: ??Arm band and [...] 176(H) <150 mg/dL 09/27/2021 10:31 PM CDT [facility] Comment: ATP III Classification of Triglycerides: ?<150 mg/dL: ??Normal ? 150 - 199 mg/dL: ??Borderline High ? 200 - 400 mg/dL: ??High ?>500 mg/dL: ??Very High Blood BLOOD SPECIMEN / Unknown Venipuncture / Unknown 09/27/2021 9:41 PM CDT 09/27/2021 10:18 PM CDT Dar Kilpatrick MD LAB - CHEMISTRY OR DERABLES Performing Organization Address [facility] Co de Phone Number [facility] [address] [place] [address], [facility] [phone] * (ABNORMAL) BLOOD GASES ART + COOX PANEL (09/27/2021 9:41 PM CDT) pH Arterial 7.28(L) 7.35 - 7.45 pH 09/27/2021 10:16 PM [facility] pO2 Arterial 306(H) 80 - 100 mmHg 09/27/2021 10:16 PM [facility] pCO2 Arterial 42 35 - 45 mmHg 10:16 PM [facility] HCO3 Arterial 20 20 - 30 mmol/l 09/27/2021 10:16 PM [facility] BE Arterial -6.7(L) -2.0 - 2.0 mmol/L 09/27/2021 10:16 PM [facility] Oxyhemoglobin Arterial 96.6 % 09/27/2021 10:16 PM [facility] Dexoyhemoglobin (HHB) % 0.0 % 09/27/2021 10:16 PM [facility] Methemoglobin <0.8 0.0 - 2.0 % 09/27/2021 10:16 PM [facility] Carboxyhemoglobin 3.4(H) 0.0 - 2.0 % 2021 10:16 PM [facility] O2 Content Arterial 15.6 Interpret within clinical context mg/dL 09/27/2021 10:16 PM [facility] Hemoglobin by COOX 10.9(L) 12.0 - 15.6 g/dL 09/27/2021 10:16 PM [facility] O2 Saturation Arterial 100 90 - 100 % 09/27/2021 10:16 PM [facility] FI O2 Arterial 100.0 % 09/27/2021 10:16 PM [facility] Blood, arterial ARTERIAL BLOOD SPECIMEN / Unknown Arterial Puncture / Unknown 09/27/2021 9:41 PM CDT 09/27/2021 10:14 PM CDT Narrative [facility] - 09/27/2021 10:16 PM CDT Carboxyhemoglobin Normal Concentration: Non-smokers: 0-2%; Smokers: 0-9%; Toxic: >20% Dar Kilpatrick MD LAB - BLOOD GASES ORDERABLES Performing Organization Address City/State/[facility] Co de Phone Number [address] [address], [facility] [phone] * (ABNORMAL) CALCIUM IONIZED WHOLE BLOOD (09/27/2021 9:41 PM CDT) Calcium Ionized 0.98 mmol/L 09/27/2021 10:20 PM [facility] pH 7.29(L) 7.35 - 7.45 pH 09/27/2021 10:20 PM [facility] Ionized Calcium pH Adjusted 0.94(L) 1.19 - 1.34 mmol/L 09/27/2021 10:20 PM [facility] Blood BLOOD SPECIMEN / Unknown Venipuncture / Unknown 09/27/2021 9:41 PM CDT 09/27/2021 10:19 PM CDT Dar Kilpatrick MD LAB - CHEMISTRY OR DERABLES [facility] [address] [place] [address], [facility] [phone] * XR CHEST 1VW PORTABLE (09/27/2021 9:40 [...] DIFFERENTIAL MANUAL (09/27/2021 9:05 PM CDT) Pathologist [facility] WBC (corrected for NRBC) 9.8 10? 3 /uL 09/27/2021 10:03 PM [facility] Total Cell Count 100 09/28/19 10:03 PM [facility] Neutrophils Absolute Manual 4.51 1.60 - 7.00 10? 3 /uL 09/27/2021 10:03 PM [facility] Comment:(BANDS+SEGS) x WBC = NEUT # (ANC) Lymphocyte Absolute Manual 3.92(H) 1.10 - 3.90 10? 3 /uL 09/27/2021 10:03 PM [facility] Monocytes Absolute Manual 0.49 0.26 - 1.07 10? 3 /uL 09/27/2021 10:03 PM [facility] Eosinophils Absolute Manual 0.39 0.00 - 0.47 10? 3 /uL 09/27/2021 10:03 PM [facility] Neutrophil % Manual 46 35 - 70 % 09/27/2021 10:03 PM [facility] Lymphocyte % Manual 40 20 - 43 % 09/27/2021 10:03 PM [facility] Monocytes % Manual 5 5 - 13 % 09/27/2021 10:03 PM [facility] Eosinophils % Manual 4 0 - 6 % 09/27/2021 10:03 PM [facility] Atypical Lymphocyte % Manual 5(H) 0 % 09/27/2021 10:03 PM [facility] Platelet Estimate Adequate Adequate 09/27/2021 10:03 PM [facility] Poikilocytes Few(A) None 09/27/2021 10:03 PM [facility] Polychromasia Occasional( A) None 09/27/2021 10:03 PM [facility] Target Cells Occasional( A) None 09/27/2021 10:03 PM [facility] Schistocytes Occasional( A) None 09/27/2021 10:03 PM [facility] Britton Cells Few(A) None 09/27/2021 10:03 PM [facility] Blood BLOOD SPECIMEN / Unknown Venipuncture / Unknown 09/27/2021 9:05 PM CDT 09/27/2021 9:24 PM CDT Dar Kilpatrick MD LAB - HEMATOLOGY O RDERAEMMETT [facility] [address] [place] [address], [place] [phone] * (ABNORMAL) TEG 6S PLATELET MAPPING (09/27/2021 9:05 PM CDT) [facility] TEGPLM (Max Amplitude) Koalin 62 53 - 68 mm 09/27/2021 10:29 PM CDT [facility] TEGPLM (Max Amplitude) ACTF 5 2 - 19 mm 09/27/2021 10:29 PM CDT [facility] TEGPLM (Max Amplitude) ADP 47 45 - 69 mm 09/27/2021 10:29 PM CDT [facility] TEGPLM (Max Amplitude) AA 39(L) 51 - 71 mm 09/27/2021 10:29 PM CDT [facility] TEGPLM %Inhibition ADP 26(H) 0 - 17 % 09/27/2021 10:29 PM CDT [facility] TEGPLM %Inhibition AA 40(H) 0 - 11 % 09/27/2021 10:29 PM CDT [facility] TEGPLM %Aggregation ADP 74(L) 83 - 100 % 09/27/2021 10:29 PM CDT [facility] TEGPLM % Aggregation AA 60(L) 89 - 100 % 09/27/2021 10:29 PM CDT [facility] Blood BLOOD SPECIMEN / Unknown Venipuncture / Unknown 09/27/2021 9:05 PM CDT 09/27/2021 9:23 PM CDT Dar Kilpatrick MD LAB - HEMATOLOGY O RDERAEMMETT [facility] [address] [place] [address], [place] [phone] * (ABNORMAL) TEG 6 GLOBAL HEMOSTASIS W/ LYSIS (09/27/2021 9:05 PM CDT) [facility] Citrated Kaolin R (Reaction Time) 3.8(L) 4.6 - 9.1 min 09/27/2021 10:22 PM CDT [facility] Citrated Kaolin LY30 (Lysis) 0.6 0.0 - 2.6 % 09/27/2021 10:22 PM CDT [facility] Citrated RapidTEG MA (Max Amplitude) 59.2 52.0 - 70.0 mm 09/27/2021 10:22 PM CDT [facility] Citrated Functional Fibrinogen MA (Max Amplitude) 19.8 15.0 - 32.0 mm 09/27/2021 10:22 PM CDT [facility] Blood BLOOD SPECIMEN / Unknown Venipuncture / Unknown 09/27/2021 9:05 PM CDT 09/27/2021 9:23 PM CDT Dar Kilpatrick MD LAB - HEMATOLOGY O RDFLO Performing Organization Address City/[facility]/ZIP Co de Phone Number [facility] [address] [address], [facility] [phone] * TYPE + SCREEN PANEL (09/27/2021 9:05 PM CDT) [facility] Antibody Screen NEG 10:22 PM CDT [facility] ABO Rh O POS 09/27/2021 10:22 PM CDT [facility] Blood Bank BLOOD SPECIMEN / Unknown Venipuncture / Unknown 09/27/2021 9:05 PM CDT 09/27/2021 9:39 PM CDT Dar Kilpatrick MD LAB - BLOOD BANK O BARBARA [facility] [address] [place] [address], [place] [phone] * PT-INR [facility] (09/27/2021 9:05 PM CDT) Pathologist [facility] PT 14.2 12.1 - 14.8 Seconds 09/27/2021 9:48 PM [facility] INR 1.1 See Comment 09/27/2021 9:48 PM [facility] Comment:The suggested therap eutic range for standard coumadin (warfarin) therapy is an INR of 2.0-3.0. For high-risk patients (Mechanical Mitral Valve Prosthesis, etc.), the suggested prophylactic therapeutic range is an INR of 2.5-3.5. Blood BLOOD SPECIMEN / Unknown Venipuncture / Unknown 09/27/2021 9:05 PM CDT 09/27/2021 9:23 PM CDT Dar Kilpatrick MD LAB - COAGULATION ORDERABLES [facility] [address] [place] [address], [facility] [phone] * CBC W AUTO DIFFERENTIAL (09/27/2021 9:05 PM CDT) WBC 9.8 3.5 - 10.5 10? 3 /uL 09/27/2021 9:37 PM [facility] RBC 3.84 3.80 - 5.20 10? 6 /uL 09/27/2021 9:37 PM [facility] Hemoglobin 12.2 12.0 - 15.6 g/dL 09/27/2021 9:37 PM [facility] Hematocrit 36.5 35.0 - 45.0 % 09/27/2021 9:37 PM [facility] MCV 95.1 80.7 - 98.3 fL 09/27/2021 9:37 PM [facility] MCH 31.8 26.7 - 34.0 pg 09/27/2021 9:37 PM [facility] MCHC 33.4 30.8 - 35.9 g/dL 09/27/2021 9:37 PM [facility] Platelet Count 259 150 - 400 10? 3 /uL 09/27/2021 9:37 PM [facility] RDW-SD 47.8 36.0 - 50.0 fL 09/27/2021 9:37 PM [facility] RDW-CV 13.6 11.2 - 14.8 % 09/27/2021 9:37 PM [facility] MPV 10.5 9.4 - 12.9 fL 09/27/2021 9:37 PM [facility] nRBC Absolute 0.00 0 10? 3 /uL 09/27/2021 9:37 PM [facility] nRBC Auto 0.0 0 /100 WBC 09/27/2021 9:37 PM [facility] Blood BLOOD SPECIMEN / Unknown Venipuncture / Unknown 09/27/2021 9:05 PM CDT 09/27/2021 9:24 PM CDT Dar Kilpatrick MD LAB - HEMATOLOGY O RDERABLES [facility] [address] [place] [address], [facility] [phone] * (ABNORMAL) BASIC METABOLIC PANEL (CALCIUM TOTAL) (09/27/2021 9:05 PM CDT) BUN 11 7 - 26 mg/dL 09/27/2021 9:51 PM [facility] Creatinine 1.60(H) 0.56 - 0.96 mg/dL 09/27/2021 9:51 PM [facility] Sodium 140 136 - 145 mmol/L 09/27/2021 9:51 PM [facility] Potassium 4.5 3.5 - 4.5 mmol/L 09/27/2021 9:51 PM [facility] Chloride 108(H) 98 - 107 mmol/L 09/27/2021 9:51 PM [facility] CO2 16(L) 22 - 29 mmol/L 09/27/2021 9:51 PM [facility] Glucose 240(H) 70 - 115 mg/dL 09/27/2021 9:51 PM [facility] Calcium 8.8 8.4 - 10.2 mg/dL 09/27/2021 9:51 PM [facility] Anion Gap 21(H) 8 - 18 09/27/2021 9:51 PM [facility] BUN/Creatinine Ratio 7 7 - 23 09/27/2021 9:51 PM CDT [facility] Osmolality Calculated 297 270 - 300 mOsm/kg 09/27/2021 9:51 PM T [facility] eGFR by CKD-EPI 25(L) >=90 mL/min/1.7 3 m2 09/27/2021 9:51 PM CDT [facility] Blood BLOOD SPECIMEN / Unknown Venipuncture / Unknown 09/27/2021 9:05 PM CDT 09/27/2021 9:24 PM CDT Dar Kilpatrick MD LAB - CHEMISTRY OR DERABLES Performing Organization Address [facility] Co de Phone Number [address] [address], [employer] [phone] * ALCOHOL ETHYL BLOOD (09/27/2021 9:05 PM CDT) Ethanol (mg/dL) <10 <10 mg/dL 9:51 PM CDT [facility] Ethanol Calculated (g/dL) <0.010 <=0.010 g/dL 09/27/2021 9:51 PM CDT [facility] Blood BLOOD SPECIMEN / Unknown Venipuncture / Unknown 09/27/2021 9:05 PM CDT 09/27/2021 9:24 PM CDT Narrative [facility] - 09/27/2021 9:51 PM CDT Ethanol Interp <10: None Detected. Depression of INTER COM SERVICER: >100 mg/dl Potentially Critical: >250 mg/dl Potentially [...] - CHEMISTRY OR DERABLES Performing Organization Address [facility]/ZIP Co de Phone Number [address] [address], [employer] [phone] documented in this encounter Visit Diagnoses Diagnosis [...] AM CDT 17 g saline nasal spray ([place]; Baby [place]) 0.65 % nasal spray 2 spray 2 [...] RN) 0832 ($ Given - Provider: Jyoti Patioñ RN)2121 ($ Given - Provider: Jyoti Benz [...] 0939 ($ Given - Provider: Eder Palencia RN)2017 ($ Given - Provider: John Hurst [...] ($ Given - Provider: Jyoti Benz RN) [id number] (HOG) enema 360 mL 360 mL, Rectal, [...] Provider: Jyoti Patiño RN) saline nasal spray ([place]; Baby [place]) 0.65 % nasal spray 2 spray 2 spray, Each Nostril, EVERY 2 HOURS PRN, Dry Nose, Starting on 10/10/21 at 1945, Until Tue10/13/21 at 2010 Linked Groups Order Group 1: SALINE LOCK, INSERT AND MAINTAIN (CANCELED) Routine, CONTINUOUS, Starting on [place] 09/27/21 at 2100, Until Specified, New collection, Task Completed: Yes And 0.9% NaCl injection 3 mLJump to med 3 mL, Intracatheter, EVERY 8 HOURS, First dose on 09/27/21 at 2200, Until Discontinued, Flush peripheral IV catheter with 3 mL of normal saline every 8 hours. And 0.9% NaCl injection 1-10 mLJump to med 1-10 mL, Intracatheter, PRN, Other, peripheral line flush, Starting on [place] 09/27/21 at 2056, Until Tue10/13/21 at 2010, [...] MAR. documented in this encounter Care Teams Welder Fitter Relationship Specialty Start Date End Date Hussain Rushing APRN-TRAMAINE 09/28/21 documented as of this encounter
--- OUTSIDE RECORDS SUMMARY | 2024-03-26 07:06 | XMS_ITS | Clinical Summary ---
Author Organization [facility] Address [address] [place] [address]. [place], [place] [address] [place] [address] Care Team Providers Care Professor Of Apologetics Name Role Phone Ezra Peralta Primary Care [...] patient's age to complete this topic Insurance [facility] Care Teams Professor Of Apologetics Relationship Specialty Start Date End Date Ezra Peralta PA PCP - General PHYSICIAN DROP FORGE HAND 12/20/21
--- OUTSIDE RECORDS SUMMARY | 2024-03-26 07:06 | XMS_ITS | Referral Summary ---
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 Gender Identity Not on file Sexual Orientation Not on file Last Filed Vital Signs Vital Sign Reading Time Taken Comments Blood Pressure 130/84 04/27/2022 8:43 AM BIOPROCESS ENGINEER Pulse 81 04/27/2022 8:43 AM BIOPROCESS ENGINEER Temperature 36.8 ??C (98.2 ??F) 04/23/2020 8:10 AM CS T Respiratory Rate - - Oxygen Saturation 100% 04/23/2020 8:10 AM BIOPROCESS ENGINEER Inhaled Oxygen Concentration - - Weight 76.2 kg (168 lb) 04/27/2022 8:43 AM BIOPROCESS ENGINEER Height 175.3 cm (5' 9) 04/27/2022 8:43 AM BIOPROCESS ENGINEER Body Mass Index 24.81 04/27/2022 8:43 AM BIOPROCESS ENGINEER Plan of Treatment Not on file Insurance AETNA [facility] AETNA BETTER [facility] [place] Care Teams Roll Tube Setter Relationship Specialty Start Date End Date Cristobal Agustin MD PCP - General Gastroenterology 03/26/22
--- OUTSIDE RECORDS SUMMARY | 2024-03-26 07:06 | XMS_ITS | Encounter Summary ---
Author Organization [facility] Address [address] [facility] [place] [address] Care Team Providers Care Painter Ordnance Name Role Phone Hussain Rushing ZIGZAG TUNNEL ELASTIC OPERATOR-FRIT MIXER AND BURNER Unavailable [phone] Reason for Visit * Auth/Cert Specialty Diagnoses / Procedures Referred By Tavo leos Referred To Contact Referral ID Status Reason Start Date Expiration Date Visits Re quested Visits Authorized [id number] 1 1 Encounter Details Date Type Department Care Team (Late st Contact Info) Description 10/06/2021 7:36 AM CDT Anesthesia Event [facility] [address] [place] [id number] Nikita Miller MD [address] [place] [address] Flora Ortiz Anes Asst [address] [facility] [place] [address] Anesthesia Record Procedure Summary Procedure Name Responsible [...] Start 0918 An Data Art {Data Artifact: [id number]} 1144 Proc Stop 1145 An Emergence 1147 [...] Patient complained of pain yesterday. Placed on HYDRAULIC MINER BLASTING morphine yesterday, currently at a rate of [...] Plan was discussed with the resident and TEMPORARY STAFF ACCOUNTANT. Overall additional findings/comments: Second IV after induction I have reviewed the chart I have interviewed and examined the patient I agree with the documentation and have discussed the anesthesia plan w/ the Resident, TEMPORARY STAFF ACCOUNTANT or AA [id number]: Documentation of Current Medications in the Medical Record Patient has been marked Ready for Procedure I attest to documenting, updating or reviewing a patient's current medications using all immediate resources available on the date of the encounter. This list must include ALL known prescriptions, [id number], herbals, and vitamin/mineral/dietary (nutritional) supplements AND must contain the medications' name, dosages, frequency and route of administration I discussed risks of anesthesia including, chipped or missing tooth, sore throat, CO, CVA, prolonged mechanical ventilation and . Pt [...] History: No past surgical history on file. 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 unknown OB History No obstetric history on file. Covid Vaccine: Lab Results: Recent Labs Base Name 09/30/21 1145 [id number]* SPECIMENTYPE Arterial Recent Labs Component Name [...] Note Patient Location: OR. Procedure: Arterial Line ([id number]). Procedure Section Indications: blood sampling needed and [...] Event Date/Time: 10/06/2021 7:45 AM Procedure: intubation (77320). Procedure Section: Sedation: under general anesthesia. Indications [...] 0822 10/03/21 1845 morphine 50 mg/50 mL HYDRAULIC MINER BLASTING -- Dispensed IV HYDRAULIC MINER BLASTING 10/03/21 1835 10/03/21 1347 naloxone (Narcan) injection [...] Note Patient Location: OR. Procedure: Arterial Line ([id number]). Procedure Section ?? Indications: blood sampling needed [...] Event Date/Time: ??10/06/2021 7:45 AM Procedure: intubation ([id number]). Procedure Section: ?? Sedation: under general anesthesia. [...] CDT documented in this encounter Care Teams Painter Ordnance Relationship Specialty Start Date End Date Hussain Rushing, LAURA-FRIT MIXER AND BURNER 09/28/21 documented as of this encounter
--- OUTSIDE RECORDS SUMMARY | 2024-03-26 07:07 | XMS_ITS | Encounter Summary ---
Author Organization [facility] Healthcare Address [address] [place] [address] Care Team Providers Care Hand Assembler For Puller Over Name Role Phone Clinic, Pcp Primary Care Provider Unavailabl e Reason for Visit * Reason Onset Date Comments No Show 12/10/2021 Encounter Details Date Type Department Care Team (Late st Contact Info) Description 12/10/2021 Telephone 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
--- OUTSIDE RECORDS SUMMARY | 2024-03-26 07:07 | XMS_ITS | Encounter Summary ---
Author Organization [facility] Healthcare Address [address] [place] [address] Care Team Providers Care Preparing Box Tender Name Role Phone Clinic, Pcp Primary Care Provider Unavailabl e Encounter Details Date Type Department Care Team (Late st Contact Info) Description 10/27/2021 Orders Only Physical Medicine and Rehabilitation Adriana Espinoza MD [address] [facility] [address] [place] [address] Paraplegia (HCC) (Primary Dx) Social History Tobacco Use Types Packs/Day Years Used Date Smoking Tobacco: Never Assessed Sex and Gender Information Value Date Recorded Sex Assigned at Not on file Legal Sex Male 7:46 AM CERTIFIED PERSONAL CHEF Gender Identity Not on file Sexual Orientation Not on file documented as of this encounter Plan of Treatment Not on file documented as of this encounter Visit Diagnoses Diagnosis Paraplegia (HCC)- Primary Paraplegia documented in this encounter Care Teams Preparing Box Tender Relationship Specialty Start Date End Date Clinic, Pcp PCP - General 07/14/16 03/25/22 documented as of this encounter
--- OUTSIDE RECORDS SUMMARY | 2024-03-26 07:07 | XMS_ITS | Encounter Summary ---
Author Organization [facility] Healthcare Address [address] [place] [address] Care Team Providers Care Innovations Paraprofessional Name Role Phone Cristobal Agustin MD Primary Care Provider Reason for Visit * Reason Comments PT Treatment * Physical Therapy (Routine) - Closed Specialty Diagnoses / Procedures Referred By Contac t Referred To Contact Physical Therapy Diagnoses Paraplegia, unspecified (HCC) Cristobal Agustin MD [address] [place] [address] Phone: tel: fax: [facility] OP Physical Therapy [address] [place] [address] Phone: tel: fax: Referral ID Status Reason Start Date Expiration Date V isits Requested Visits Authorized [id number] Closed Evaluate and Treat 08/27/2022 03/13/2023 6 99 Encounter Details Date Type Department Care Team (Late st Contact Info) Description 09/08/2022 10:45 AM CDT Therapy [facility] OP Physical Therapy [address] [place] [address] Ashley Jones PTA Paraplegia, unspecified (HCC) [...] on file Legal Sex Male 7:46 AM ROUND BONER Gender Identity Not on file Sexual Orientation [...] and revised). 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 to vegetable thinner // bars with Min A for knee [...] progress towards functional goals. Ashley Jones PTA [facility] ATTENTION PHYSICIAN If you are [...] Primary documented in this encounter Care Teams Innovations Paraprofessional Relationship Specialty Start Date End Date Cristobal Agustin MD PCP - General Gastroenterology 03/26/22 documented as of this encounter
--- OUTSIDE RECORDS SUMMARY | 2024-03-26 07:07 | XMS_ITS | Encounter Summary ---
Author Organization [facility] Healthcare Address [address] [place] [address] Care Team Providers Care Special Warfare Combatant Crewman Name Role Phone Clinic, Pcp Primary Care Provider Unavailabl e Encounter Details Date Type Department Care Team (Late st Contact Info) Description 11/05/2021 Orders Only [facility] [phone] Unknown, Notinfile Social History Tobacco Use Types Packs/Day Years Used Date Smoking Tobacco: Never Assessed Sex and Gender Information Value Date Recorded Sex Assigned at Not on file Legal Sex Male 7:46 AM LIEUTENANT FIREFIGHTER Gender Identity Not on file Sexual Orientation [...] Unknown LAB BLOOD ORDERABLES Final Res ult [facility] Department [place] [address] * (ABNORMAL) Comprehensive metabolic panel, without glucose (Outreach) (11/05/2021 5:32 AM CDT) Sodium 138 135 - 145 mmol/L [facility] Potassium, pl 4.1 3.3 - 4.9 mmol/L [facility] Chloride 102 97 - 110 mmol/L [facility] CO2 30 22 - 32 mmol/L [facility] Anion gap 6 2 - 15 mmol/L [facility] BUN 15 8 - 25 mg/dL [facility] Creatinine 0.98 0.80 - 1.30 mg/dL [facility] Calcium 9.7 8.5 - 10.3 mg/dL [facility] Protein, pl 6.9 6.5 - 8.5 g/dL [facility] Albumin 3.8 3.5 - 5.0 g/dL [facility] Bilirubin, total 0.2 0.1 - 1.2 mg/dL [facility] Alk phos 151(H) 40 - 130 Units/L [facility] AST 143(H) 10 - 50 Units/L [facility] ALT 261(H) 7 - 55 Units/L [facility] Blood 11/05/2021 5:32 AM CDT 11/05/2021 6:31 AM CDT us Notinfile Unknown LAB BLOOD ORDERABLES Final Res ult Performing Organization Address [facility] de Phone Number [facility] Department [place] [address] * CS GLUCOSE (11/05/2021 5:32 AM CDT) [facility] Glucose 94 70 - 199 mg/dL [facility] Comment: Interpretive Data Fasting [...] ORDERABLES Final Res ult Performing Organization Address [facility]/ZIP Co de Phone Number [facility] Department [place] [address] * Differential, auto (11/05/2021 5:32 AM CDT) Neutrophil abs 3.2 1.7 - 6.5 K/cumm [facility] Imm gran abs 0.0 0.0 - 0.1 K/cumm [facility] Lymphocyte abs 1.8 0.8 - 3.3 K/cumm [facility] Monocyte abs 0.6 0.2 - 0.8 K/cumm [facility] Eosinophil abs 0.2 0.0 - 0.5 K/cumm [facility] Basophil abs 0.0 0.0 - 0.1 K/cumm [facility] Neutrophil pct 55.7 % [facility] Comment: Interpretive Data Percent cell count reference ranges are not reported, since discordance with absolute values may lead to misinterpretation of CBC data. Current Interpretive Data was last revised on 2017. Imm gran pct 0.2 % [facility] Comment: Interpretive Data Percent cell count reference ranges are not reported, since discordance with absolute values may lead to misinterpretation of CBC data. Current Interpretive Data was last revised on 2017. Lymphocyte pct 31.0 % [facility] Comment: Interpretive Data Percent cell count reference ranges are not reported, since discordance with absolute values may lead to misinterpretation of CBC data. Current Interpretive Data was last revised on 2017. Monocyte pct 9.8 % [facility] Comment: Interpretive Data Percent cell count reference ranges are not reported, since discordance with absolute values may lead to misinterpretation of CBC data. Current Interpretive Data was last revised on 2017. Eosinophil pct 2.8 % [facility] Comment: Interpretive Data Percent cell count reference ranges are not reported, since discordance with absolute values may lead to misinterpretation of CBC data. Current Interpretive Data was last revised on 2017. Basophil pct 0.5 % [facility] Comment: Interpretive Data Percent cell count reference ranges are not reported, since discordance with absolute values may lead to misinterpretation of CBC data. Current Interpretive Data was last revised on 2017. Blood 11/05/2021 5:32 AM CDT 11/05/2021 6:31 AM CDT us Notinfile Unknown LAB BLOOD ORDERABLES Final Res ult Performing Organization Address [facility] de Phone Number [facility] [place] [address] * (ABNORMAL) CBC with auto differential (11/05/2021 5:32 AM CDT) [facility] WBC 5.8 3.8 - 9.9 K/cumm [facility] Hgb 11.1(L) 13.0 - 17.5 g/dL [facility] Hct 34.9(L) 38.9 - 50.3 % [facility] Plt 327 150 - 400 K/cumm [facility] MPV 10.3 9.1 - 12.3 fL [facility] RBC 3.80(L) 4.30 - 5.80 M/cumm [facility] MCV 91.8 81.3 - 96.4 fL [facility] MCH 29.2 27.1 - 33.3 pg [facility] MCHC 31.8(L) 32.3 - 35.7 g/dL [facility] RDW CV 16.1(H) 11.1 - 14.9 % [facility] RDW SD 54.8(H) 35.7 - 48.1 fL [facility] NRBC abs 0.00 0.00 - 0.01 K/cumm [facility] Blood 11/05/2021 5:32 AM CDT 11/05/2021 6:31 AM CDT us Notinfile Unknown LAB BLOOD ORDERABLES Final Res ult Performing Organization Address [facility]/ZIP Co de Phone Number [facility] [place] [address] documented in this encounter Visit Diagnoses Not on filedocumented in this encounter Care Teams Special Warfare Combatant Crewman Relationship Specialty Start Date End Date Clinic, Pcp PCP - General 07/14/16 03/25/22 documented as of this encounter
--- OUTSIDE RECORDS SUMMARY | 2024-03-26 07:07 | XMS_ITS | Encounter Summary ---
Author Organization [facility] Healthcare Address [address] [place] [address] Care Team Providers Care Clothing Supervisor Name Role Phone Cristobal Agustin MD Primary Care Provider Reason for Visit * Reason Comments PT Treatment Encounter Details Date Type Department Care Team (Late st Contact Info) Description 03/26/2022 12:45 PM DIRECTOR RADIATION ONCOLOGY Therapy [facility] OP Physical Therapy [address] [place] [address] Rosalina Richards, PT Zeenat Mckeon, CLOTH WASHER BACK TENDER Paraplegia, unspecified (HCC) (Primary Dx) Social History Tobacco Use Types Packs/Day Years Used Date Smoking Tobacco: Never Assessed Sex and Gender Information Value Date Recorded Sex Assigned at Not on file Legal Sex Male 7:46 AM DIRECTOR RADIATION ONCOLOGY Gender Identity Not on file Sexual Orientation [...] supine and supine to sit Used leg plant maintenance technician for supine to sit, unable to use it for sit to supine Self DF stretch With leg plant maintenance technician Standing frame Initiated. Pt completed self raising [...] walk, shorter goal is for sitting balance. CTOR RADIATION ONCOLOGY * Rosalina Richards, PT - 03/26/2022 12:45 [...] she has been in communication with case filler and needs are currently being met. Patient [...] off on plan ofcare. Co -treatment with CLOTH WASHER BACK TENDER Nataliya this date. Objective Measurement/Observation: patient transfers [...] progress towards functional goals. Rosalina Richards PT [facility] Please sign below to certify this plan of care/treatment plan. Thank you. Provider Signature: Date: CTOR RADIATION ONCOLOGY documented in this encounter Plan of Treatment Not on file documented as of this encounter Visit Diagnoses Diagnosis Paraplegia, unspecified (HCC)- Primary documented in this encounter Care Teams Clothing Supervisor Relationship Specialty Start Date End Date Cristobal Agustin MD PCP - General Gastroenterology 03/26/22 documented as of this encounter
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
--- OUTSIDE RECORDS SUMMARY | 2024-03-26 07:07 | XMS_ITS | Encounter Summary ---
Author Organization [facility] Healthcare Address [address] [place] [address] Care Team Providers Care Pockets And Pieces Necktie Operator Name Role Phone Clinic, Pcp Primary Care Provider Unavailabl e Reason for Visit * Reason Comments PT Initial Eval * Physical Therapy (Routine) - Closed Specialty Diagnoses / Procedures Referred By Contac t Referred To Contact Physical Therapy Diagnoses Paraplegia, unspecified (HCC) Ezra Washington PA [address] [place] [address] Phone: tel: fax: [address] [phone] Referral ID Status Reason Start Date Expiration Date V isits Requested Visits Authorized [id number] Closed Specialty Services Required 02/10/2022 03/12/2023 99 99 Encounter Details Date Type Department Care Team (Late st Contact Info) Description 02/26/2022 1:45 PM EDGER HAND Therapy [facility] OP Physical Therapy [address] [place] [id number] Rosalina Richards, PT Paraplegia, unspecified (HCC) Social History Tobacco Use Types Packs/Day Years Used Date Smoking Tobacco: Never Assessed Sex and Gender Information Value Date Recorded Sex Assigned at Not on file Legal Sex Male 7:46 AM EDGER HAND Gender Identity Not on file Sexual [...] Treatment for this Diagnosis: PT evaluation at [facility], no F/U due to no insurance Previous Physical Therapy for this Diagnosis: yes If yes, when and what was the response to treatment: Nov 10 D/c from [facility]. Symptoms Pt reports denies LE active movement. [...] all work-related responsibilities. Independent prio to the [facility] Equipment Used: sliding board, w/c, shower chair, [...] Patient education: provided with information from the [place] [employer]. Advised patient to work with travel insurance agent in order to get medical and social work coordinator they need. Patient to provide vendor that did w/c eval at [facility] for PT to assist in f/u. Discussed patient look for a support group to assist in snf emotional recovery. Discussed patient mobility with new [...] from skilled therapy services. Rosalina Richards PT [facility] ATTENTION PHYSICIAN If you are unable to electronically sign this document, please print this document and sign below to certify this plan of care/treatment plan. Please fax back to . Thank you. Provider Signature: Date: R HAND * Rosalina Richards PT - 02/26/2022 1:45 [...] walk, shorter goal is for sitting balance. R HAND documented in this encounter Plan of Treatment Not on file documented as of this encounter Visit Diagnoses Diagnosis Paraplegia, unspecified (HCC) documented in this encounter Orders Outpatient Referral Count Last Ordered Date Fir st Ordered Date AMB REFERRAL ORDER TO PHYSICAL THERAPY 1 documented in this encounter Care Teams Pockets And Pieces Necktie Operator Relationship Specialty Start Date End Date Clinic, Pcp PCP - General 07/14/16 03/25/22 documented as of this encounter
--- OUTSIDE RECORDS SUMMARY | 2024-03-26 07:07 | XMS_ITS | Encounter Summary ---
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 No call back received from Britt 11/06/2021 ??2:52 PM Tatyana Murphy documented in this encounter Plan of Treatment Not on file documented as of this encounter Visit Diagnoses Not on filedocumented in this encounter Care Teams Employment Law Specialist Relationship Specialty Start Date End Date Clinic, Pcp PCP - General 07/14/16 03/25/22 documented as of this encounter
--- OUTSIDE RECORDS SUMMARY | 2024-03-26 07:07 | XMS_ITS | Encounter Summary ---
Author Organization [facility] Healthcare Address [address] [place] [address] Care Team Providers Care Mortgage Loan Officer Name Role Phone Cristobal Agustin MD Primary Care Provider Reason for Visit * Reason Comments PT Treatment Encounter Details Date Type Department Care Team (Late st Contact Info) Description 04/02/2022 12:45 PM OTOLARYNGOLOGY NURSE Therapy [facility] OP Physical Therapy [address] [place] [address] Lorrie Pfeiffer, Zeenat Higginbotham PTA Paraplegia, unspecified (HCC) (Primary Dx) Social History Tobacco Use Types Packs/Day Years Used Date Smoking Tobacco: Never Assessed Sex and Gender Information Value Date Recorded Sex Assigned at Not on file Legal Sex Male 7:46 AM OTOLARYNGOLOGY NURSE Gender Identity Not on file Sexual Orientation [...] supine and supine to sit Used leg lime supervisor for supine to sit, unable to use it for sit to supine Self DF stretch With leg lime supervisor Standing frame Initiated. Pt completed self raising [...] walk, shorter goal is for sitting balance. ARYNGOLOGY NURSE * Zeenat Mckeon PTA - 04/02/2022 12:45 [...] to progress towards functional goals. Zeenat Mckeon, [facility] Please sign below to certify this plan of care/treatment plan. Thank you. Provider Signature: Date: P ARYNGOLOGY NURSE documented in this encounter Plan of Treatment Not on file documented as of this encounter Visit Diagnoses Diagnosis Paraplegia, unspecified (HCC)- Primary documented in this encounter Care Teams Mortgage Loan Officer Relationship Specialty Start Date End Date Cristobal Agustin MD PCP - General Gastroenterology 03/26/22 documented as of this encounter
--- OUTSIDE RECORDS SUMMARY | 2024-03-26 07:07 | XMS_ITS | Encounter Summary ---
Author Organization [facility] Healthcare Address [address] [place] [address] Care Team Providers Care Opera Singer Name Role Phone Cristobal Agustin MD Primary Care Provider Encounter Details Date Type Department Care Team (Late st Contact Info) Description 09/07/2022 Documentation [facility] OP Physical Therapy [facility] [address] [address] Cynthia Salvador, PT Social History Tobacco Use Types Packs/Day Years Used Date Smoking Tobacco: Every Day Cigarettes Smokeless Tobacco: Never PHQ-2 Answer Date Recorded PHQ-2 Total Score (If total score is 3 or more points, staff should administer the PHQ-9) 2 04/27/2022 Sex and Gender Information Value Date Recorded Sex Assigned at Not on file 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
--- OUTSIDE RECORDS SUMMARY | 2024-03-26 07:07 | XMS_ITS | Encounter Summary ---
Author Organization [facility] Healthcare Address [address] [place] [address] Care Team Providers Care Pastoral Worker Name Role Phone Clinic, Pcp Primary Care Provider Unavailabl e Reason for Visit * Reason Onset Date Comments Patient Status 12/08/2021 Encounter Details Date Type Department Care Team (Late st Contact Info) Description 12/08/2021 Telephone [facility] [place] [address] Hollie Perez, PT Patient Status Social History Tobacco Use Types Packs/Day Years Used Date Smoking Tobacco: Never Assessed Sex and Gender Information Value Date Recorded Sex Assigned at Not on file 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
--- OUTSIDE RECORDS SUMMARY | 2024-03-26 07:07 | XMS_ITS | Encounter Summary ---
Author Organization [facility] Healthcare Address [address] [place] [address] Care Team Providers Care Commodity Director Name Role Phone Clinic, Pcp Primary Care Provider Unavailabl e Reason for Visit * Reason Onset Date Comments PT Discharge 12/10/2021 Encounter Details Date Type Department Care Team (Late st Contact Info) Description 12/10/2021 Documentation [facility] [place] [address] Dolores Buck, PT PT Discharge Social History Tobacco Use Types Packs/Day Years Used Date Smoking Tobacco: Never Assessed Sex and Gender Information Value Date Recorded Sex Assigned at Not on file 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 male Natasha Rojas MD [address] [facility] [address] [place] [address] ICD-9-CM ICD-10-CM 1. 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.1 [...] Primary documented in this encounter Care Teams Commodity Director Relationship Specialty Start Date End Date Clinic, Pcp PCP - General 07/14/16 03/25/22 documented as of this encounter
--- OUTSIDE RECORDS SUMMARY | 2024-03-26 07:07 | XMS_ITS | Encounter Summary ---
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 73 m2 [facility] Comment: Interpretive Data Reference Interval Normal [...] Unknown LAB BLOOD ORDERABLES Final Res ult [facility] [place] [address] * (ABNORMAL) Comprehensive metabolic panel, without glucose (Outreach) (10/26/2021 8:15 AM CDT) Sodium 141 135 - 145 mmol/L [facility] Potassium, pl 4.5 3.3 - 4.9 mmol/L [facility] Chloride 102 97 - 110 mmol/L [facility] CO2 29 22 - 32 mmol/L [facility] Anion gap 10 2 - 15 mmol/L [facility] BUN 13 8 - 25 mg/dL [facility] Creatinine 0.94 0.80 - 1.30 mg/dL [facility] Calcium 9.5 8.5 - 10.3 mg/dL [facility] Protein, pl 7.0 6.5 - 8.5 g/dL [facility] Albumin 3.5 3.5 - 5.0 g/dL [facility] Bilirubin, total 0.2 0.1 - 1.2 mg/dL [facility] Alk phos 187(H) 40 - 130 Units/L [facility] AST 141(H) 10 - 50 Units/L [facility] ALT 302(H) 7 - 55 Units/L [facility] Blood 10/26/2021 8:15 AM CDT 10/26/2021 11:59 AM CDT us Notinfile Unknown LAB BLOOD ORDERABLES Final Res ult Performing Organization Address [facility] Co de Phone Number [facility] [place] [address] * CS GLUCOSE (10/26/2021 8:15 AM CDT) Glucose 95 70 - 199 mg/dL [facility] Comment: Interpretive Data Fasting glucose >/= 126 [...] ORDERABLES Final Res ult Performing Organization Address [facility] de Phone Number [facility] [place] [address] * Differential, auto (10/26/2021 8:15 AM CDT) Neutrophil abs 3.1 1.7 - 6.5 K/cumm [facility] Imm gran abs 0.0 0.0 - 0.1 K/cumm [facility] Lymphocyte abs 1.7 0.8 - 3.3 K/cumm [facility] Monocyte abs 0.7 0.2 - 0.8 K/cumm [facility] Eosinophil abs 0.1 0.0 - 0.5 K/cumm [facility] Basophil abs 0.1 0.0 - 0.1 K/cumm [facility] Neutrophil pct 54.1 % [facility] Comment: Interpretive Data Percent cell count reference ranges are not reported, since discordance with absolute values may lead to misinterpretation of CBC data. Current Interpretive Data was last revised on 2017. Imm gran pct 0.4 % [facility] Comment: Interpretive Data Percent cell count reference ranges are not reported, since discordance with absolute values may lead to misinterpretation of CBC data. Current Interpretive Data was last revised on 2017. Lymphocyte pct 30.0 % [facility] Comment: Interpretive Data Percent cell count reference ranges are not reported, since discordance with absolute values may lead to misinterpretation of CBC data. Current Interpretive Data was last revised on 2017. Monocyte pct 12.0 % [facility] Comment: Interpretive Data Percent cell count reference ranges are not reported, since discordance with absolute values may lead to misinterpretation of CBC data. Current Interpretive Data was last revised on 2017. Eosinophil pct 2.3 % [facility] Comment: Interpretive Data Percent cell count reference ranges are not reported, since discordance with absolute values may lead to misinterpretation of CBC data. Current Interpretive Data was last revised on 2017. Basophil pct 1.2 % [facility] Comment: Interpretive Data Percent cell count reference ranges are not reported, since discordance with absolute values may lead to misinterpretation of CBC data. Current Interpretive Data was last revised on 2017. Blood 10/26/2021 8:15 AM CDT 10/26/2021 11:59 AM CDT us Notinfile Unknown LAB BLOOD ORDERABLES Final Res ult [facility] [place] [address] * (ABNORMAL) CBC with auto differential (10/26/2021 8:15 AM CDT) WBC 5.7 3.8 - 9.9 K/cumm [facility] Hgb 10.1(L) 13.0 - 17.5 g/dL [facility] Hct 32.4(L) 38.9 - 50.3 % [facility] Plt 500(H) 150 - 400 K/cumm [facility] MPV 10.0 9.1 - 12.3 fL [facility] RBC 3.49(L) 4.30 - 5.80 M/cumm [facility] MCV 92.8 81.3 - 96.4 fL [facility] MCH 28.9 27.1 - 33.3 pg [facility] MCHC 31.2(L) 32.3 - 35.7 g/dL [facility] RDW CV 16.6(H) 11.1 - 14.9 % [facility] RDW SD 56.5(H) 35.7 - 48.1 fL [facility] NRBC abs 0.00 0.00 - 0.01 K/cumm [facility] Blood 10/26/2021 8:15 AM CDT 10/26/2021 11:59 AM CDT us Notinfile Unknown LAB BLOOD ORDERABLES Final Res ult [facility] Department [place] [address] * eGFR (10/22/2021 5:48 AM CDT) eGFR >90 90 - 130 mL/min/1. 73 m2 [facility] Comment: Interpretive Data Reference Interval Normal ?>/= [...] Unknown LAB BLOOD ORDERABLES Final Res ult [facility] [place] [address] * (ABNORMAL) Comprehensive metabolic panel, without glucose (Outreach) (10/22/2021 5:48 AM CDT) Sodium 138 135 - 145 mmol/L [facility] Potassium, pl 4.0 3.3 - 4.9 mmol/L [facility] Chloride 103 97 - 110 mmol/L [facility] CO2 26 22 - 32 mmol/L [facility] Anion gap 9 2 - 15 mmol/L [facility] BUN 14 8 - 25 mg/dL [facility] Creatinine 0.95 0.80 - 1.30 mg/dL [facility] Calcium 9.2 8.5 - 10.3 mg/dL [facility] Protein, pl 6.8 6.5 - 8.5 g/dL [facility] Albumin 3.2(L) 3.5 - 5.0 g/dL [facility] Bilirubin, total 0.2 0.1 - 1.2 mg/dL [facility] Alk phos 198(H) 40 - 130 Units/L [facility] AST 240(H) 10 - 50 Units/L [facility] ALT 318(H) 7 - 55 Units/L [facility] Blood 10/22/2021 5:48 AM CDT 10/22/2021 6:31 AM CDT us Notinfile Unknown LAB BLOOD ORDERABLES Final Res ult Performing Organization Address [facility] de Phone Number [facility] Department [place] [address] * CS GLUCOSE (10/22/2021 5:48 AM CDT) Glucose 114 70 - 199 mg/dL [facility] Comment: Interpretive Data Fasting glucose >/= 126 [...] ORDERABLES Final Res ult Performing Organization Address [facility] de Phone Number [facility] Department [place] [address] * Differential, auto (10/22/2021 5:48 AM CDT) Neutrophil abs 3.6 1.7 - 6.5 K/cumm [facility] Imm gran abs 0.0 0.0 - 0.1 K/cumm [facility] Lymphocyte abs 1.1 0.8 - 3.3 K/cumm [facility] Monocyte abs 0.7 0.2 - 0.8 K/cumm [facility] Eosinophil abs 0.1 0.0 - 0.5 K/cumm [facility] Basophil abs 0.0 0.0 - 0.1 K/cumm [facility] Neutrophil pct 63.9 % [facility] Comment: Interpretive Data Percent cell count reference ranges are not reported, since discordance with absolute values may lead to misinterpretation of CBC data. Current Interpretive Data was last revised on 2017. Imm gran pct 0.4 % [facility] Comment: Interpretive Data Percent cell count reference ranges are not reported, since discordance with absolute values may lead to misinterpretation of CBC data. Current Interpretive Data was last revised on 2017. Lymphocyte pct 20.4 % [facility] Comment: Interpretive Data Percent cell count reference ranges are not reported, since discordance with absolute values may lead to misinterpretation of CBC data. Current Interpretive Data was last revised on 2017. Monocyte pct 12.4 % [facility] Comment: Interpretive Data Percent cell count reference ranges are not reported, since discordance with absolute values may lead to misinterpretation of CBC data. Current Interpretive Data was last revised on 2017. Eosinophil pct 2.2 % [facility] Comment: Interpretive Data Percent cell count reference ranges are not reported, since discordance with absolute values may lead to misinterpretation of CBC data. Current Interpretive Data was last revised on 2017. Basophil pct 0.7 % [facility] Comment: Interpretive Data Percent cell count reference ranges are not reported, since discordance with absolute values may lead to misinterpretation of CBC data. Current Interpretive Data was last revised on 2017. Blood 10/22/2021 5:48 AM CDT 10/22/2021 6:31 AM CDT us Notinfile Unknown LAB BLOOD ORDERABLES Final Res ult [facility] Department of Laboratories [place], [place] [id number] * (ABNORMAL) CBC with auto differential (10/22/2021 5:48 AM CDT) WBC 5.6 3.8 - 9.9 K/cumm [facility] Hgb 9.3(L) 13.0 - 17.5 g/dL [facility] Hct 28.7(L) 38.9 - 50.3 % [facility] Plt 652(H) 150 - 400 K/cumm [facility] MPV 9.2 9.1 - 12.3 fL [facility] RBC 3.18(L) 4.30 - 5.80 M/cumm [facility] MCV 90.3 81.3 - 96.4 fL [facility] MCH 29.2 27.1 - 33.3 pg [facility] MCHC 32.4 32.3 - 35.7 g/dL [facility] RDW CV 16.6(H) 11.1 - 14.9 % [facility] RDW SD 54.7(H) 35.7 - 48.1 fL [facility] NRBC abs 0.00 0.00 - 0.01 K/cumm [facility] Blood 10/22/2021 5:48 AM CDT 10/22/2021 6:31 AM CDT us Notinfile Unknown LAB BLOOD ORDERABLES Final Res ult Performing Organization Address City/[facility]/ZIP Co de Phone Number [facility] [place] [address] * (ABNORMAL) Vitamin D 25 hydroxy (10/19/2021 6:01 AM CDT) Pathologist [facility] [place] Vitamin D 25-OH 21(L) 30 - 80 ng/mL [facility] Blood 10/19/2021 6:01 AM CDT 10/19/2021 10:46 AM CDT us Notinfile Unknown LAB BLOOD ORDERABLES Final Res ult [facility] [address] * (ABNORMAL) eGFR (10/19/2021 6:01 AM CDT) Pathologist [facility] eGFR 84(L) 90 - 130 mL/min/1. 73 m2 [facility] Comment: Interpretive Data Reference Interval Normal ?>/= [...] Unknown LAB BLOOD ORDERABLES Final Res ult [facility] Department [place] [address] * (ABNORMAL) Comprehensive metabolic panel, without glucose (Outreach) (10/19/2021 6:01 AM CDT) Sodium 136 135 - 145 mmol/L [facility] Potassium, pl 4.3 3.3 - 4.9 mmol/L [facility] Chloride 100 97 - 110 mmol/L [facility] CO2 25 22 - 32 mmol/L [facility] Anion gap 11 2 - 15 mmol/L [facility] BUN 17 8 - 25 mg/dL [facility] Creatinine 1.15 0.80 - 1.30 mg/dL [facility] Calcium 9.0 8.5 - 10.3 mg/dL [facility] Protein, pl 6.9 6.5 - 8.5 g/dL [facility] Albumin 3.3(L) 3.5 - 5.0 g/dL [facility] Bilirubin, total 0.3 0.1 - 1.2 mg/dL [facility] Alk phos 197(H) 40 - 130 Units/L [facility] AST 91(H) 10 - 50 Units/L [facility] ALT 201(H) 7 - 55 Units/L [facility] Blood 10/19/2021 6:01 AM CDT 10/19/2021 10:46 AM CDT us Notinfile Unknown LAB BLOOD ORDERABLES Final Res ult Performing Organization Address [facility] de Phone Number [facility] Department [place] [address] * CS GLUCOSE (10/19/2021 6:01 AM CDT) [facility] Signature Glucose 103 70 - 199 mg/dL [facility] Comment: Interpretive Data Fasting glucose >/= 126 [...] ORDERABLES Final Res ult Performing Organization Address [facility]/State/ZIP Co de Phone Number [facility] [place] [address] * (ABNORMAL) Differential, auto (10/19/2021 6:01 AM CDT) Neutrophil abs 5.2 1.7 - 6.5 K/cumm [facility] Imm gran abs 0.1 0.0 - 0.1 K/cumm [facility] Lymphocyte abs 1.4 0.8 - 3.3 K/cumm [facility] Monocyte abs 0.9(H) 0.2 - 0.8 K/cumm [facility] Eosinophil abs 0.2 0.0 - 0.5 K/cumm [facility] Basophil abs 0.1 0.0 - 0.1 K/cumm [facility] Neutrophil pct 66.6 % [facility] Comment: Interpretive Data Percent cell count reference ranges are not reported, since discordance with absolute values may lead to misinterpretation of CBC data. Current Interpretive Data was last revised on 2017. Imm gran pct 0.8 % [facility] Comment: Interpretive Data Percent cell count reference ranges are not reported, since discordance with absolute values may lead to misinterpretation of CBC data. Current Interpretive Data was last revised on 2017. Lymphocyte pct 18.3 % [facility] Comment: Interpretive Data Percent cell count reference ranges are not reported, since discordance with absolute values may lead to misinterpretation of CBC data. Current Interpretive Data was last revised on 2017. Monocyte pct 11.2 % [facility] Comment: Interpretive Data Percent cell count reference ranges are not reported, since discordance with absolute values may lead to misinterpretation of CBC data. Current Interpretive Data was last revised on 2017. Eosinophil pct 2.2 % [facility] Comment: Interpretive Data Percent cell count reference ranges are not reported, since discordance with absolute values may lead to misinterpretation of CBC data. Current Interpretive Data was last revised on 2017. Basophil pct 0.9 % [facility] Comment: Interpretive Data Percent cell count reference ranges are not reported, since discordance with absolute values may lead to misinterpretation of CBC data. Current Interpretive Data was last revised on 2017. Blood 10/19/2021 6:01 AM CDT 10/19/2021 10:46 AM CDT us Notinfile Unknown LAB BLOOD ORDERABLES Final Res ult Performing Organization Address [facility] de Phone Number [facility] [place] [address] * (ABNORMAL) CBC with auto differential (10/19/2021 6:01 AM CDT) WBC 7.9 3.8 - 9.9 K/cumm [facility] Hgb 8.9(L) 13.0 - 17.5 g/dL [facility] Hct 28.3(L) 38.9 - 50.3 % [facility] Plt 741(H) 150 - 400 K/cumm [facility] MPV 9.4 9.1 - 12.3 fL [facility] RBC 3.14(L) 4.30 - 5.80 M/cumm [facility] MCV 90.1 81.3 - 96.4 fL [facility] MCH 28.3 27.1 - 33.3 pg [facility] MCHC 31.4(L) 32.3 - 35.7 g/dL [facility] RDW CV 16.3(H) 11.1 - 14.9 % [facility] RDW SD 53.3(H) 35.7 - 48.1 fL [facility] NRBC abs 0.00 0.00 - 0.01 K/cumm [facility] Blood 10/19/2021 6:01 AM CDT 10/19/2021 10:46 AM CDT us Notinfile Unknown LAB BLOOD ORDERABLES Final Res ult Performing Organization Address City/[facility]/ZIP Co de Phone Number [facility] [place] [address] * eGFR (10/16/2021 11:39 AM CDT) [facility] eGFR >90 90 - 130 mL/min/1. 73 m2 [facility] Comment: Interpretive Data Reference Interval Normal ?>/= [...] Unknown LAB BLOOD ORDERABLES Final Res ult [facility] Department [place] [address] * (ABNORMAL) Comprehensive metabolic panel, without glucose (Outreach) (10/16/2021 11:39 AM CDT) [facility] Sodium 136 135 - 145 mmol/L [facility] Potassium, pl 4.5 3.3 - 4.9 mmol/L [facility] Chloride 100 97 - 110 mmol/L [facility] CO2 28 22 - 32 mmol/L [facility] Anion gap 8 2 - 15 mmol/L [facility] BUN 16 8 - 25 mg/dL [facility] Creatinine 1.02 0.80 - 1.30 mg/dL [facility] Calcium 9.5 8.5 - 10.3 mg/dL [facility] Protein, pl 7.4 6.5 - 8.5 g/dL [facility] Albumin 3.5 3.5 - 5.0 g/dL [facility] Bilirubin, total 0.3 0.1 - 1.2 mg/dL [facility] Alk phos 246(H) 40 - 130 Units/L [facility] AST 188(H) 10 - 50 Units/L [facility] ALT 328(H) 7 - 55 Units/L [facility] Blood 10/16/2021 11:3 9 AM CDT 10/16/2021 2:07 PM CDT us Notinfile Unknown LAB BLOOD ORDERABLES Final Res ult [facility] Department [place] [address] * CS GLUCOSE (10/16/2021 11:39 AM CDT) [facility] Glucose 101 70 - 199 mg/dL [facility] Comment: Interpretive Data Fasting glucose >/= 126 [...] Unknown LAB BLOOD ORDERABLES Final Res ult [facility] Department [place] [address] * (ABNORMAL) Differential, auto (10/16/2021 11:39 AM CDT) Neutrophil abs 7.4(H) 1.7 - 6.5 K/cumm [facility] Imm gran abs 0.1 0.0 - 0.1 K/cumm [facility] Lymphocyte abs 1.2 0.8 - 3.3 K/cumm [facility] Monocyte abs 1.2(H) 0.2 - 0.8 K/cumm [facility] Eosinophil abs 0.2 0.0 - 0.5 K/cumm [facility] Basophil abs 0.1 0.0 - 0.1 K/cumm [facility] Neutrophil pct 72.7 % [facility] Comment: Interpretive Data Percent cell count reference ranges are not reported, since discordance with absolute values may lead to misinterpretation of CBC data. Current Interpretive Data was last revised on 2017. Imm gran pct 1.4 % [facility] Comment: Interpretive Data Percent cell count reference ranges are not reported, since discordance with absolute values may lead to misinterpretation of CBC data. Current Interpretive Data was last revised on 2017. Lymphocyte pct 11.8 % [facility] Comment: Interpretive Data Percent cell count reference ranges are not reported, since discordance with absolute values may lead to misinterpretation of CBC data. Current Interpretive Data was last revised on 2017. Monocyte pct 11.6 % [facility] Comment: Interpretive Data Percent cell count reference ranges are not reported, since discordance with absolute values may lead to misinterpretation of CBC data. Current Interpretive Data was last revised on 2017. Eosinophil pct 1.9 % [facility] Comment: Interpretive Data Percent cell count reference ranges are not reported, since discordance with absolute values may lead to misinterpretation of CBC data. Current Interpretive Data was last revised on 2017. Basophil pct 0.6 % [facility] Comment: Interpretive Data Percent cell count reference ranges are not reported, since discordance with absolute values may lead to misinterpretation of CBC data. Current Interpretive Data was last revised on 2017. Blood 10/16/2021 11:3 9 AM CDT 10/16/2021 2:07 PM CDT us Notinfile Unknown LAB BLOOD ORDERABLES Final Res ult Performing Organization Address [facility] Co de Phone Number [facility] [place] [address] * (ABNORMAL) CBC with auto differential (10/16/2021 11:39 AM CDT) WBC 10.2(H) 3.8 - 9.9 K/cumm [facility] Hgb 8.9(L) 13.0 - 17.5 g/dL [facility] Hct 28.2(L) 38.9 - 50.3 % [facility] Plt 846(H) 150 - 400 K/cumm [facility] MPV 9.5 9.1 - 12.3 fL [facility] RBC 3.04(L) 4.30 - 5.80 M/cumm [facility] MCV 92.8 81.3 - 96.4 fL [facility] MCH 29.3 27.1 - 33.3 pg [facility] MCHC 31.6(L) 32.3 - 35.7 g/dL [facility] RDW CV 16.6(H) 11.1 - 14.9 % [facility] RDW SD 56.3(H) 35.7 - 48.1 fL [facility] NRBC abs 0.00 0.00 - 0.01 K/cumm [facility] Blood 10/16/2021 11:3 9 AM CDT 10/16/2021 2:07 PM CDT us Notinfile Unknown LAB BLOOD ORDERABLES Final Res ult Performing Organization Address City/[facility]/ZIP Co de Phone Number [facility] [place] [address] * eGFR (10/15/2021 5:58 AM CDT) eGFR [...] Final Res ult [facility] [place] [address] * (ABNORMAL) Comprehensive metabolic panel, without glucose (Outreach) (10/15/2021 5:58 AM CDT) Pathologist [facility] Sodium 138 135 - 145 mmol/L [facility] Potassium, pl 4.5 3.3 - 4.9 mmol/L [facility] Chloride 103 97 - 110 mmol/L [facility] CO2 27 22 - 32 mmol/L [facility] Anion gap 8 2 - 15 mmol/L [facility] BUN 15 8 - 25 mg/dL [facility] Creatinine 1.05 0.80 - 1.30 mg/dL [facility] Calcium 9.2 8.5 - 10.3 mg/dL [facility] Protein, pl 7.0 6.5 - 8.5 g/dL [facility] Albumin 3.1(L) 3.5 - 5.0 g/dL [facility] Bilirubin, total 0.4 0.1 - 1.2 mg/dL [facility] Alk phos 234(H) 40 - 130 Units/L [facility] AST 215(H) 10 - 50 Units/L [facility] ALT 308(H) 7 - 55 Units/L [facility] Blood 10/15/2021 5:58 AM CDT 10/15/2021 6:34 AM CDT us Notinfile Unknown LAB BLOOD ORDERABLES Final Res ult [facility] [place] [address] * CS GLUCOSE (10/15/2021 5:58 AM CDT) [facility] Glucose 107 70 - 199 mg/dL [facility] Comment: Interpretive Data Fasting glucose >/= 126 [...] BLOOD ORDERABLES Final Res ult [facility] [place] [address] * (ABNORMAL) Differential, auto (10/15/2021 5:58 AM CDT) Neutrophil abs 7.5(H) 1.7 - 6.5 K/cumm [facility] Imm gran abs 0.2(H) 0.0 - 0.1 K/cumm [facility] Lymphocyte abs 1.3 0.8 - 3.3 K/cumm [facility] Monocyte abs 1.4(H) 0.2 - 0.8 K/cumm [facility] Eosinophil abs 0.2 0.0 - 0.5 K/cumm [facility] Basophil abs 0.1 0.0 - 0.1 K/cumm [facility] Neutrophil pct 70.3 % [facility] Comment: Interpretive Data Percent cell count reference ranges are not reported, since discordance with absolute values may lead to misinterpretation of CBC data. Current Interpretive Data was last revised on 2017. Imm gran pct 2.2 % [facility] Comment: Interpretive Data Percent cell count reference ranges are not reported, since discordance with absolute values may lead to misinterpretation of CBC data. Current Interpretive Data was last revised on 2017. Lymphocyte pct 12.5 % [facility] Comment: Interpretive Data Percent cell count reference ranges are not reported, since discordance with absolute values may lead to misinterpretation of CBC data. Current Interpretive Data was last revised on 2017. Monocyte pct 12.8 % [facility] Comment: Interpretive Data Percent cell count reference ranges are not reported, since discordance with absolute values may lead to misinterpretation of CBC data. Current Interpretive Data was last revised on 2017. Eosinophil pct 1.7 % [facility] Comment: Interpretive Data Percent cell count reference ranges are not reported, since discordance with absolute values may lead to misinterpretation of CBC data. Current Interpretive Data was last revised on 2017. Basophil pct 0.5 % [facility] Comment: Interpretive Data Percent cell count reference ranges are not reported, since discordance with absolute values may lead to misinterpretation of CBC data. Current Interpretive Data was last revised on 2017. Blood 10/15/2021 5:58 AM CDT 10/15/2021 6:34 AM CDT us Notinfile Unknown LAB BLOOD ORDERABLES Final Res ult Performing Organization Address [facility] de Phone Number [facility] [place] [address] * (ABNORMAL) CBC with auto differential (10/15/2021 5:58 AM CDT) WBC 10.6(H) 3.8 - 9.9 K/cumm [facility] Hgb 8.5(L) 13.0 - 17.5 g/dL [facility] Hct 26.2(L) 38.9 - 50.3 % [facility] Plt 826(H) 150 - 400 K/cumm [facility] MPV 9.4 9.1 - 12.3 fL [facility] RBC 2.93(L) 4.30 - 5.80 M/cumm [facility] MCV 89.4 81.3 - 96.4 fL [facility] MCH 29.0 27.1 - 33.3 pg [facility] MCHC 32.4 32.3 - 35.7 g/dL [facility] RDW CV 16.3(H) 11.1 - 14.9 % [facility] RDW SD 53.1(H) 35.7 - 48.1 fL [facility] NRBC abs 0.00 0.00 - 0.01 K/cumm [facility] Blood 10/15/2021 5:58 AM CDT 10/15/2021 6:34 AM CDT us Notinfile Unknown LAB BLOOD ORDERABLES Final Res ult Performing Organization Address City/[facility]/ZIP Co de Phone Number MARY ANN CLEMONS [facility] Department [place] [address] * eGFR (10/14/2021 5:31 AM CDT) [facility] eGFR >90 90 - 130 mL/min/1. 73 m2 [facility] Comment: Interpretive Data Reference Interval Normal ?>/= [...] Final Res ult MARY ANN CLEMONS [facility] Department [place] [address] * (ABNORMAL) Comprehensive metabolic panel, without glucose (Outreach) (10/14/2021 5:31 AM CDT) [facility] Sodium 135 135 - 145 mmol/L [facility] Potassium, pl 4.4 3.3 - 4.9 mmol/L [facility] Chloride 98 97 - 110 mmol/L [facility] CO2 28 22 - 32 mmol/L [facility] Anion gap 9 2 - 15 mmol/L [facility] BUN 16 8 - 25 mg/dL [facility] Creatinine 1.06 0.80 - 1.30 mg/dL [facility] Calcium 8.9 8.5 - 10.3 mg/dL [facility] Protein, pl 6.8 6.5 - 8.5 g/dL [facility] Albumin 3.1(L) 3.5 - 5.0 g/dL [facility] Bilirubin, total 0.4 0.1 - 1.2 mg/dL [facility] Alk phos 217(H) 40 - 130 Units/L [facility] AST 159(H) 10 - 50 Units/L [facility] ALT 233(H) 7 - 55 Units/L [facility] Blood 10/14/2021 5:31 AM CDT 10/14/2021 6:29 AM CDT us Notinfile Unknown LAB BLOOD ORDERABLES Final Res ult [facility] [place] [address] * (ABNORMAL) Vitamin D 25 hydroxy (10/14/2021 5:31 AM CDT) Pathologist [facility] Vitamin D 25-OH 8(L) 30 - 80 ng/mL [facility] Blood 10/14/2021 5:31 AM CDT 10/14/2021 6:29 AM CDT us Notinfile Unknown LAB BLOOD ORDERABLES Final Res ult [facility] [place] [address] * CS GLUCOSE (10/14/2021 5:31 AM CDT) Pathologist [facility] Glucose 101 70 - 199 mg/dL [facility] Comment: Interpretive Data Fasting glucose >/= 126 [...] Unknown LAB BLOOD ORDERABLES Final Res ult [facility] [place] [address] * (ABNORMAL) Differential, auto (10/14/2021 5:31 AM CDT) [facility] Neutrophil abs 6.3 1.7 - 6.5 K/cumm [facility] Imm gran abs 0.2(H) 0.0 - 0.1 K/cumm [facility] Lymphocyte abs 1.2 0.8 - 3.3 K/cumm [facility] Monocyte abs 1.2(H) 0.2 - 0.8 K/cumm [facility] Eosinophil abs 0.2 0.0 - 0.5 K/cumm [facility] Basophil abs 0.0 0.0 - 0.1 K/cumm [facility] Neutrophil pct 68.7 % [facility] Comment: Interpretive Data Percent cell count reference ranges are not reported, since discordance with absolute values may lead to misinterpretation of CBC data. Current Interpretive Data was last revised on 2017. Imm gran pct 2.4 % [facility] Comment: Interpretive Data Percent cell count reference ranges are not reported, since discordance with absolute values may lead to misinterpretation of CBC data. Current Interpretive Data was last revised on 2017. Lymphocyte pct 13.5 % [facility] Comment: Interpretive Data Percent cell count reference ranges are not reported, since discordance with absolute values may lead to misinterpretation of CBC data. Current Interpretive Data was last revised on 2017. Monocyte pct 12.7 % [facility] Comment: Interpretive Data Percent cell count reference ranges are not reported, since discordance with absolute values may lead to misinterpretation of CBC data. Current Interpretive Data was last revised on 2017. Eosinophil pct 2.3 % [facility] Comment: Interpretive Data Percent cell count reference ranges are not reported, since discordance with absolute values may lead to misinterpretation of CBC data. Current Interpretive Data was last revised on 2017. Basophil pct 0.4 % [facility] Comment: Interpretive Data Percent cell count reference ranges are not reported, since discordance with absolute values may lead to misinterpretation of CBC data. Current Interpretive Data was last revised on 2017. Blood 10/14/2021 5:31 AM CDT 10/14/2021 6:29 AM CDT us Notinfile Unknown LAB BLOOD ORDERABLES Final Res ult [facility] Department [place] [address] * (ABNORMAL) CBC with auto differential (10/14/2021 5:31 AM CDT) WBC 9.2 3.8 - 9.9 K/cumm [facility] Hgb 8.4(L) 13.0 - 17.5 g/dL [facility] Hct 25.7(L) 38.9 - 50.3 % [facility] Plt 768(H) 150 - 400 K/cumm [facility] MPV 9.4 9.1 - 12.3 fL [facility] RBC 2.86(L) 4.30 - 5.80 M/cumm [facility] MCV 89.9 81.3 - 96.4 fL [facility] MCH 29.4 27.1 - 33.3 pg [facility] MCHC 32.7 32.3 - 35.7 g/dL [facility] RDW CV 16.3(H) 11.1 - 14.9 % [facility] RDW SD 53.1(H) 35.7 - 48.1 fL [facility] NRBC abs 0.00 0.00 - 0.01 K/cumm [facility] Blood 10/14/2021 5:31 AM CDT 10/14/2021 6:29 AM CDT us Notinfile Unknown LAB BLOOD ORDERABLES Final Res ult [facility] [place] [address] documented in this encounter Visit Diagnoses Not on filedocumented in this encounter Care Teams Professor Of Literature Relationship Specialty Start Date End Date Clinic, Pcp PCP - General 07/14/16 03/25/22 documented as of this encounter
--- OUTSIDE RECORDS SUMMARY | 2024-03-26 07:07 | XMS_ITS | Encounter Summary ---
Author Organization [facility] Healthcare Address [address] [place] [address] Care Team Providers Care Metallurgical Laboratory Assistant Name Role Phone Clinic, Pcp Primary Care Provider Unavailabl e Encounter Details Date Type Department Care Team (Late st Contact Info) Description 11/09/2021 Orders Only [facility] [phone] Unknown, Notinfile Social History Tobacco Use Types Packs/Day Years Used Date Smoking Tobacco: Never Assessed Sex and Gender Information Value Date Recorded Sex Assigned at Not on file Legal Sex Male 7:46 AM CLINICAL LAW PROFESSOR Gender Identity Not on file Sexual [...] Unknown LAB BLOOD ORDERABLES Final Res ult [facility] Department [place] [address] * (ABNORMAL) Comprehensive metabolic panel, without glucose (Outreach) (11/09/2021 5:34 AM CDT) Sodium 139 135 - 145 mmol/L [facility] Potassium, pl 4.2 3.3 - 4.9 mmol/L [facility] Chloride 101 97 - 110 mmol/L [facility] CO2 27 22 - 32 mmol/L [facility] Anion gap 11 2 - 15 mmol/L [facility] BUN 16 8 - 25 mg/dL [facility] Creatinine 0.93 0.80 - 1.30 mg/dL [facility] Calcium 9.7 8.5 - 10.3 mg/dL [facility] Protein, pl 7.1 6.5 - 8.5 g/dL [facility] Albumin 3.6 3.5 - 5.0 g/dL [facility] Bilirubin, total 0.2 0.1 - 1.2 mg/dL [facility] Alk phos 128 40 - 130 Units/L [facility] AST 57(H) 10 - 50 Units/L [facility] ALT 136(H) 7 - 55 Units/L [facility] Blood 11/09/2021 5:34 AM CDT 11/09/2021 6:22 AM CDT us Notinfile Unknown LAB BLOOD ORDERABLES Final Res ult Performing Organization Address [facility] de Phone Number [facility] Department [place] [address] * CS GLUCOSE (11/09/2021 5:34 AM CDT) [facility] Signature Glucose 95 70 - 199 mg/dL [facility] Comment: Interpretive Data Fasting glucose >/= [...] Res ult Performing Organization Address [facility] Co de Phone Number [facility] Department [place] [address] * Differential, auto (11/09/2021 5:34 AM CDT) Neutrophil abs 2.6 1.7 - 6.5 K/cumm [facility] Imm gran abs 0.0 0.0 - 0.1 K/cumm [facility] Lymphocyte abs 1.6 0.8 - 3.3 K/cumm [facility] Monocyte abs 0.5 0.2 - 0.8 K/cumm [facility] Eosinophil abs 0.1 0.0 - 0.5 K/cumm [facility] Basophil abs 0.0 0.0 - 0.1 K/cumm [facility] Neutrophil pct 52.4 % [facility] Comment: Interpretive Data Percent cell count reference ranges are not reported, since discordance with absolute values may lead to misinterpretation of CBC data. Current Interpretive Data was last revised on 2017. Imm gran pct 0.4 % [facility] Comment: Interpretive Data Percent cell count reference ranges are not reported, since discordance with absolute values may lead to misinterpretation of CBC data. Current Interpretive Data was last revised on 2017. Lymphocyte pct 33.5 % [facility] Comment: Interpretive Data Percent cell count reference ranges are not reported, since discordance with absolute values may lead to misinterpretation of CBC data. Current Interpretive Data was last revised on 2017. Monocyte pct 10.2 % [facility] Comment: Interpretive Data Percent cell count reference ranges are not reported, since discordance with absolute values may lead to misinterpretation of CBC data. Current Interpretive Data was last revised on 2017. Eosinophil pct 2.9 % [facility] Comment: Interpretive Data Percent cell count reference ranges are not reported, since discordance with absolute values may lead to misinterpretation of CBC data. Current Interpretive Data was last revised on 2017. Basophil pct 0.6 % [facility] Comment: Interpretive Data Percent cell count reference ranges are not reported, since discordance with absolute values may lead to misinterpretation of CBC data. Current Interpretive Data was last revised on 2017. Blood 11/09/2021 5:34 AM CDT 11/09/2021 6:22 AM CDT us Notinfile Unknown LAB BLOOD ORDERABLES Final Res ult Performing Organization Address [facility] Co de Phone Number [facility] [place] [employer] [place] [place] [address] * (ABNORMAL) CBC with auto differential (11/09/2021 5:34 AM CDT) Pathologist [facility] WBC 4.9 3.8 - 9.9 K/cumm [facility] Hgb 11.3(L) 13.0 - 17.5 g/dL [facility] Hct 34.8(L) 38.9 - 50.3 % [facility] Plt 312 150 - 400 K/cumm [facility] MPV 10.4 9.1 - 12.3 fL [facility] RBC 3.85(L) 4.30 - 5.80 M/cumm [facility] MCV 90.4 81.3 - 96.4 fL [facility] MCH 29.4 27.1 - 33.3 pg [facility] MCHC 32.5 32.3 - 35.7 g/dL [facility] RDW CV 15.7(H) 11.1 - 14.9 % [facility] RDW SD 51.9(H) 35.7 - 48.1 fL [facility] NRBC abs 0.00 0.00 - 0.01 K/cumm [facility] Blood 11/09/2021 5:34 AM CDT 11/09/2021 6:22 AM CDT us Notinfile Unknown LAB BLOOD ORDERABLES Final Res ult Performing Organization Address [facility]/ZIP Co de Phone Number [facility] [place] [place] [address] documented in this encounter Visit Diagnoses Not on filedocumented in this encounter Care Teams Metallurgical Laboratory Assistant Relationship Specialty Start Date End Date Clinic, Pcp PCP - General 07/14/16 03/25/22 documented as of this encounter
--- OUTSIDE RECORDS SUMMARY | 2024-03-26 07:07 | XMS_ITS | Encounter Summary ---
Author Organization [facility] Healthcare Address [address] [place] [address] Care Team Providers Care Milk Route Deliverer Name Role Phone Clinic, Pcp Primary Care Provider Unavailabl e Reason for Visit * Reason Onset Date Comments OT Discharge 12/14/2021 Encounter Details Date Type Department Care Team (Late st Contact Info) Description 12/14/2021 Documentation [facility] [place] [address] Sharath Gonzalez OT OT Discharge Social History Tobacco Use Types Packs/Day Years Used Date Smoking Tobacco: Never Assessed Sex and Gender Information Value Date Recorded Sex Assigned at Not on file Legal Sex Male 7:46 AM STAFF SERVICES MANAGER Gender Identity Not on file Sexual [...] Primary documented in this encounter Care Teams Milk Route Deliverer Relationship Specialty Start Date End Date Clinic, Pcp PCP - General 07/14/16 03/25/22 documented as of this encounter
--- OUTSIDE RECORDS SUMMARY | 2024-03-26 07:07 | XMS_ITS | Encounter Summary ---
Author Organization [facility] Healthcare Address [address] [place] [address] Care Team Providers Care Family And Marriage Counsellor Name Role Phone Clinic, Pcp Primary Care Provider Unavailabl e Reason for Visit * Reason Comments PT Treatment Encounter Details Date Type Department Care Team (Late st Contact Info) Description 03/19/2022 12:45 PM WINDOW SHADE INSTALLER Therapy [facility] OP Physical Therapy [address] [place] [id number] Les Galdamez, Zeenat Higginbotham PTA Paraplegia, unspecified (HCC) (Primary Dx) Social History Tobacco Use Types Packs/Day Years Used Date Smoking Tobacco: Never Assessed Sex and Gender Information Value Date Recorded Sex Assigned at Not on file Legal Sex Male 7:46 AM WINDOW SHADE INSTALLER Gender Identity Not on file Sexual [...] supine and supine to sit Used leg head of advertising for supine to sit, unable to use it for sit to supine Self DF stretch With leg head of advertising Standing frame Initiated. Pt completed self raising [...] walk, shorter goal is for sitting balance. OW SHADE INSTALLER * Zeenat Mckeon PTA - 03/19/2022 12:45 PM CST Images from the original note were not included. Physical Therapy Daily Visit Report 03/19/2022 Solo Miller 1985 ICD-9-CM ICD-10-CM 1. Paraplegia, unspecified ([facility]) 344.1 G82.20 Subjective: Pt reports mild pain [...] progress towards functional goals. Zeenat Mckeon PTA [facility] Please sign below to certify this plan of care/treatment plan. Thank you. Provider Signature: Date: OW SHADE INSTALLER documented in this encounter Plan of Treatment Not on file documented as of this encounter Visit Diagnoses Diagnosis Paraplegia, unspecified (HCC)- Primary documented in this encounter Care Teams Family And Marriage Counsellor Relationship Specialty Start Date End Date Clinic, Pcp PCP - General 07/14/16 03/25/22 documented as of this encounter
--- OUTSIDE RECORDS SUMMARY | 2024-03-26 07:07 | XMS_ITS | Encounter Summary ---
Author Organization [facility] Healthcare Address [address] [place] [address] Care Team Providers Care Genetic Supervisor Name Role Phone Unavailable Primary Care Provider Unavailabl e Encounter Details Date Type Department Care Team (Latest Contact Info) Description 09/08/2014 9:26 AM CDT - 09/08/2014 11:32 AM CDT Hospital Encounter [facility] Gary Ham, DO [address] [facility] [place] [address] Contusion of hand; Lumbar sprain; Accident; Other specified disease of sebaceous glands Social History Tobacco Use Types Packs/Day Years Used Date Smoking Tobacco: Never Assessed Sex and Gender Information Value Date Recorded Sex Assigned at Not on file Legal Sex Male 7:46 AM PENSION ADMINISTRATOR Gender Identity Not on file Sexual Orientation [...] Laterality Modality Upper Extremities, Hand [facility] 09/08/2014 Impressions 09/08/2014 10:37 AM CDT ??No acute osseous abnormality THIS IS AN ELECTRONICALLY VERIFIED REPORT 09/08/2014 10:44 AM: ??Anmol Tejada M.D. Anmol Tejada M.D. JA:jay 10:44 AM 10:44 AM [facility] [EOD] Narrative 09/08/2014 10:37 AM CDT EXAMINATION: [...] Tejada M.D. JA:jay 10:44 AM 10:44 AM [facility] [EOD] Gary Espinal DO IMG XR PROCEDURES Final Res ult documented in this encounter Visit Diagnoses Diagnosis Contusion of hand Contusion of hand(s) Lumbar sprain Lumbar sprain and strain Accident Unspecified accident Other specified disease of sebaceous glands documented in this encounter
--- OUTSIDE RECORDS SUMMARY | 2024-03-26 07:07 | XMS_ITS | Encounter Summary ---
Author Organization [facility] Facility Care Team Providers Care Pill Coater Name Role Phone Unavailable Primary Care Provider Unavailabl e Encounter Details Date Type Department Care Team (Late st Contact Info) Description 06/09/2007 12:21 AM CDT - 06/09/2007 5:43 AM CDT Hospital Encounter [facility] Social History Tobacco Use Types Packs/Day Years Used Date Smoking Tobacco: Never Assessed Sex and Gender Information Value Date Recorded Sex Assigned at Not on file Legal Sex Male 7:46 AM AD TRAFFICKER Gender Identity Not on file Sexual Orientation Not on file documented as of this encounter Plan of Treatment Not on file documented as of this encounter Visit Diagnoses Not on filedocumented in this encounter
--- OUTSIDE RECORDS SUMMARY | 2024-03-26 07:07 | XMS_ITS | Encounter Summary ---
Author Organization [facility] Healthcare Address [address] [place] [address] Care Team Providers Care Machinist Supervisor Outside Name Role Phone Cristobal Agustin MD Primary Care Provider Reason for Visit * Reason Comments PT Treatment * Physical Therapy (Routine) - Closed Specialty Diagnoses / Procedures Referred By Contac t Referred To Contact Physical Therapy Diagnoses Paraplegia, unspecified (HCC) Cristobal Agustin MD [address] [place] [phone] Phone: tel: fax: [facility] OP Physical Therapy [address] [place] [phone] Phone: tel: fax: Referral ID Status Reason Start Date Expiration Date V isits Requested Visits Authorized [id number] Closed Evaluate and Treat 08/27/2022 03/13/2023 6 99 Encounter Details Date Type Department Care Team (Late st Contact Info) Description 09/10/2022 10:00 AM CDT Therapy [facility] OP Physical Therapy [address] [place] [address] [phone] Ashley Jones PTA Paraplegia, unspecified (HCC) (Primary [...] on file Legal Sex Male 7:46 AM LEGAL INSTRUCTOR Gender Identity Not on file Sexual Orientation Not on file documented as of this encounter Progress Notes * Ashley Jones, VERTICAL CONTOUR BAND SAW OPERATOR - 09/10/2022 10:00 AM CDT ICD-9-CM ICD-10-CM [...] and revised). 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 to quality control inspector // bars with Min A for knee [...] 1985 ICD-9-CM ICD-10-CM 1. Paraplegia, unspecified ([facility]) 344.1 G82.20 Subjective: Pt reports that he [...] progress towards functional goals. Ashley Jones PTA [facility] ATTENTION PHYSICIAN If you are [...] Primary documented in this encounter Care Teams Machinist Supervisor Outside Relationship Specialty Start Date End Date Cristobal Agustin MD PCP - General Gastroenterology 03/26/22 documented as of this encounter
--- OUTSIDE RECORDS SUMMARY | 2024-03-26 07:07 | XMS_ITS | Encounter Summary ---
Author Organization [facility] Healthcare Address [address] [place] [address] Care Team Providers Care Inside Horticultural Specialty Grower Name Role Phone Cristobal Agustin MD Primary Care Provider Reason for Visit * Reason Comments PT Treatment * Physical Therapy (Routine) - Closed Specialty Diagnoses / Procedures Referred By Contac t Referred To Contact Physical Therapy Diagnoses Paraplegia, unspecified (HCC) Cristobal Agustin MD [address] [place] [address] Phone: tel: fax: [facility] OP Physical Therapy [address] [place] [address] Phone: tel: fax: Referral ID Status Reason Start Date Expiration Date V isits Requested Visits Authorized [id number] Closed Evaluate and Treat 08/27/2022 03/13/2023 6 99 Encounter Details Date Type Department Care Team (Late st Contact Info) Description 09/15/2022 10:00 AM CDT Therapy [facility] OP Physical Therapy [address] [place] [address] [phone] Ashley Jones PTA Paraplegia, unspecified (HCC) (Primary [...] on file Legal Sex Male 7:46 AM HOG COOLER Gender Identity Not on file Sexual Orientation Not on file documented as of this encounter Progress Notes * Ashley Jones, WEDDING PHOTOGRAPHER - 09/15/2022 10:00 AM CDT ICD-9-CM ICD-10-CM [...] and revised). 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 to emergency response coordinator // bars with Min A for [...] progress towards functional goals. Ashley Jones PTA [facility] ATTENTION PHYSICIAN If you are unable [...] Primary documented in this encounter Care Teams Inside Horticultural Specialty Grower Relationship Specialty Start Date End Date Cristobal Agustin MD PCP - General Gastroenterology 03/26/22 documented as of this encounter
--- OUTSIDE RECORDS SUMMARY | 2024-03-26 07:07 | XMS_ITS | Encounter Summary ---
Author Organization [facility] Healthcare Address [address] [place] [address] Care Team Providers Care Mechanical Systems Design Engineer Name Role Phone Clinic, Pcp Primary Care Provider Unavailabl e Reason for Visit * Reason Comments PT Treatment Encounter Details Date Type Department Care Team (Late st Contact Info) Description 03/12/2022 10:00 AM GLOBAL IMPLEMENTATION MANAGER Therapy [facility] OP Physical Therapy [address] [place] [id number] Zeenat Mckeon PTA Paraplegia, unspecified (HCC) (Primary Dx) Social History Tobacco Use Types Packs/Day Years Used Date Smoking Tobacco: Never Assessed Sex and Gender Information Value Date Recorded Sex Assigned at Not on file Legal Sex Male 7:46 AM GLOBAL IMPLEMENTATION MANAGER Gender Identity Not on file Sexual [...] supine and supine to sit Used leg baggage and mail agent for supine to sit, unable to use it for sit to supine Self DF stretch With leg baggage and mail agent Progress Note/Re-Cert Goals: Short-Term Goals: to be [...] walk, shorter goal is for sitting balance. AL IMPLEMENTATION MANAGER * Zeenat Mckeon PTA - 03/12/2022 10:00 [...] Pt was able to use a leg baggage and mail agent to improve lifting legs off bed to floor but was unable to use it to lift legs onto bed. Pt instructed in self DF stretching withgt belt or leg baggage and mail agent in supine. Pt's mother is present during [...] progress towards functional goals. Zeenat Mckeon PTA [facility] Please sign below to certify this plan of care/treatment plan. Thank you. Provider Signature: Date: AL IMPLEMENTATION MANAGER documented in this encounter Plan of Treatment Not on file documented as of this encounter Visit Diagnoses Diagnosis Paraplegia, unspecified (HCC)- Primary documented in this encounter Care Teams Mechanical Systems Design Engineer Relationship Specialty Start Date End Date Clinic, Pcp PCP - General 07/14/16 03/25/22 documented as of this encounter
--- OUTSIDE RECORDS SUMMARY | 2024-03-26 07:07 | XMS_ITS | Encounter Summary ---
Author Organization [facility] Healthcare Address [address] [place] [address] Care Team Providers Care Business Administrator Name Role Phone Clinic, Pcp Primary Care Provider Unavailabl e Encounter Details Date Type Department Care Team (Late st Contact Info) Description 04/23/2020 8:03 AM SUBSURFACE AUGMENTEE OPERATOR - 04/23/2020 12:37 PM [facility] Emergency [address] [place] [address] Unknown, Shanellnfcarlos Hilda Villasenor, DO [address] [facility] [place] [address] Discharge Disposition: Discharge to home or self care Social History Tobacco Use Types Packs/Day Years Used Date Smoking Tobacco: Never Assessed Sex and Gender Information Value Date Recorded Sex Assigned at Not on file Legal Sex Male 7:46 AM SUBSURFACE AUGMENTEE OPERATOR Gender Identity Not on file Sexual Orientation Not on file documented as of this encounter Last Filed Vital Signs Vital Sign Reading Time Taken Comments Blood Pressure 124/89 04/23/2020 8:10 AM SUBSURFACE AUGMENTEE OPERATOR Pulse 59 04/23/2020 8:10 AM SUBSURFACE AUGMENTEE OPERATOR Temperature 36.8 ??C (98.2 ??F) 04/23/2020 8:10 AM CS T Respiratory Rate - - Oxygen Saturation 100% 04/23/2020 8:10 AM SUBSURFACE AUGMENTEE OPERATOR Inhaled Oxygen Concentration - - Weight 91.5 kg (201 lb 11.6 oz) 04/23/2020 8:10 AM SUBSURFACE AUGMENTEE OPERATOR Height 177.8 cm (5' 10) 04/23/2020 8:10 AM SUBSURFACE AUGMENTEE OPERATOR Body Mass Index 28.94 04/23/2020 8:10 AM SUBSURFACE AUGMENTEE OPERATOR documented in this encounter Medications at Time [...] Comments SCAN - LABS 04/24/2020 12:00 AM SUBSURFACE AUGMENTEE OPERATOR URINALYSIS AND REFLEX TO MICROSCOPIC Routine 04/23/2020 12:10 PM SUBSURFACE AUGMENTEE OPERATOR CT LUMBAR SPINE WO CONTRAST 04/23/2020 10:24 AM SUBSURFACE AUGMENTEE OPERATOR XR SPINE LUMBAR 2 OR 3 VIEWS 04/23/2020 12:00 AM SUBSURFACE AUGMENTEE OPERATOR documented in this encounter Results * SCAN - LABS (04/24/2020 12:00 AM SUBSURFACE AUGMENTEE OPERATOR) Narrative 04/24/2020 12:00 AM SUBSURFACE AUGMENTEE OPERATOR Ordered by an unspecified provider. us Historical Provider Final Res ult * (ABNORMAL) Urinalysis reflex to microscopic (04/23/2020 12:10 PM SUBSURFACE AUGMENTEE OPERATOR) Ur Collection Type CLEAN CATCH [facility] Urine Color YELLOW YELLOW [facility] Urine Clarity CLEAR [facility] Urine Glucose (UA) NORMAL NORMAL mg/dL [facility] Urine Bilirubin NEGATIVE NEGATIVE mg/dl [facility] Urine Ketones NEGATIVE NEGATIVE mg/dL [facility] Ur Specific [place] 1.029(H) 1.005 - 1.025 [facility] Urine Blood NEGATIVE NEGATIVE mg/dl [facility] Urine pH 6.0 5.0 - 8.0 [facility] Urine Protein NEGATIVE NEGATIVE mg/dL [facility] Urine Urobilinogen NORMAL NORMAL mg/dL [facility] Urine Nitrite NEGATIVE NEGATIVE [facility] Ur Leukocyte Esterase NEGATIVE NEGATIVE Ben/ul [facility] Ur Microscopic Review Not Indicated [facility] 04/23/2020 12:1 0 PM SUBSURFACE AUGMENTEE OPERATOR 04/23/2020 12:15 PM SUBSURFACE AUGMENTEE OPERATOR Narrative [facility] - 04/23/2020 12:25 PM SUBSURFACE AUGMENTEE OPERATOR jk Clean catch Resulting Agency Comment ER us Hilda Villasenor DO LAB URINE ORDERABLES Final Resu lt [facility] [address] [id number], [facility] [phone] * CT Lumbar Spine WO Contrast (04/23/2020 10:24 AM SUBSURFACE AUGMENTEE OPERATOR) Anatomical Region Laterality Modality Spine N/A Computed Tomogra phy 04/23/2020 11:4 9 AM SUBSURFACE AUGMENTEE OPERATOR Narrative 04/23/2020 11:54 AM SUBSURFACE AUGMENTEE OPERATOR Patient Name: SARA MILLER ?Ordering Dr: Hilda Villasenor DO ?? D.O.B: 1985 ? Exam Date: 04/23/20 ?? 1024 ?? Age: 35 ?Sex: Male ? MR#: [id number] ?? Loc: ? RADIOLOGY REPORT ?? Order #[id number] ?? CT Scan ? CT L-Spine WO [...] 11:54 AM ?? T: ? Report ID: [id number] ?? Reading Location: ??[id number] ? REPORT ELECTRONICALLY SIGNED IN OTHER VENDOR SYSTEM ?? Resulting Agency Comment E Procedure Note Eder Jacobsen MD - 04/23/2020 Patient Name: SARA MILLER Dr: Hilda Villasenor DO, D.O.B: 1985 Exam Date: 04/23/20 1024 Age: 35 Sex: Male MR#: [id number] Loc: RADIOLOGY REPORT Order #[id number] CT Scan CT L-Spine WO IV Contrast [...] Eder Jacobsen M.D. RB T: Report ID: [id number] Reading Location: [id number] REPORT ELECTRONICALLY SIGNED IN OTHER VENDOR SYSTEM us Hilda Villasenor DO IMG CT PROCEDURES Final Result * XR Spine Lumbar 2 or 3 Views (04/23/2020 12:00 AM SUBSURFACE AUGMENTEE OPERATOR) Anatomical Region Laterality Modality Spine N/A Radiographic Xcohitl ging 04/23/2020 8:51 AM SUBSURFACE AUGMENTEE OPERATOR Narrative 04/23/2020 8:52 AM SUBSURFACE AUGMENTEE OPERATOR Patient Name: SARA MILLER ?Ordering Dr: Nita Higginbotham ANP ?? D.O.B: 1985 ? Exam Date: 04/23/20 ?? 0000 ?? Age: 35 ?Sex: Male ? MR#: [id number] ?? Loc: ? RADIOLOGY REPORT ?? Order #[id number] ?? Radiology ? Lumbar Spine 2 or [...] 8:52 AM ?? T: ? Report ID: [id number] ?? Reading Location: ??[id number] ? REPORT ELECTRONICALLY SIGNED IN OTHER VENDOR SYSTEM ?? Resulting Agency Comment P Procedure Note Dony Adair MD - 04/23/2020 Patient Name: SARA MILLER Susan Dr: Nita Higginbotham D.O.B: 1985 Exam Date: 04/23/20 0000 Age: 35 Sex: Male MR#: [id number] Loc: RADIOLOGY REPORT Order #[id number] Radiology Lumbar Spine 2 or 3 View [...] signed by Dony GASPAR T: Report ID: [id number] Reading Location: [place] [address] REPORT ELECTRONICALLY SIGNED IN OTHER VENDOR SYSTEM us Nita Higginbotham TOBACCO SIEVE OPERATOR IMG XR PROCEDURES Final Result documented in this encounter Visit Diagnoses Not on filedocumented in this encounter Care Teams Business Administrator Relationship Specialty Start Date End Date Clinic, Pcp PCP - General 07/14/16 03/25/22 documented as of this encounter
--- OUTSIDE RECORDS SUMMARY | 2024-03-26 07:07 | XMS_ITS | Encounter Summary ---
Author Organization [facility] Healthcare Address [address] [place] [address] Care Team Providers Care Care Analyst Name Role Phone Cristobal Agustin MD Primary Care Provider Reason for Visit * Reason Comments PT Treatment * Physical Therapy (Routine) - Closed Specialty Diagnoses / Procedures Referred By Contac t Referred To Contact Physical Therapy Diagnoses Paraplegia, unspecified (HCC) Cristobal Agustin MD [address] [place] [address] Phone: tel: fax: [facility] OP Physical Therapy [address] [place] [phone] Phone: tel: fax: Referral ID Status Reason Start Date Expiration Date V isits Requested Visits Authorized [id number] Closed Evaluate and Treat 08/27/2022 03/13/2023 6 99 Encounter Details Date Type Department Care Team (Late st Contact Info) Description 09/01/2022 9:15 AM CDT Therapy [facility] OP Physical Therapy [address] [place] [id number] Lorrie Pfeiffer PTA Paraplegia, unspecified (HCC) [...] on file 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 Pt arrives with his managed care nurse.Transfers to and from nustep SBA with sliding [...] order to progress towards functional goals. Lorrie Pfeiffer,[facility] Outpatient Occup [facility] ATTENTION PHYSICIAN If [...] Primary documented in this encounter Care Teams Care Analyst Relationship Specialty Start Date End Date Cristobal Agustin MD PCP - General Gastroenterology 03/26/22 documented as of this encounter
--- OUTSIDE RECORDS SUMMARY | 2024-03-26 07:07 | XMS_ITS | Encounter Summary ---
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 (.) [facility] Organism ESCHERICHIA COLI [facility] Organism PLUS GROWTH OF CLINICALLY INSIGNIFICANT CORBIN. [facility] Urine 11/02/2021 7:36 PM CDT 11/03/2021 7:15 AM CDT Narrative [facility] - 11/04/2021 7:36 AM CDT Urine culture reflexed based upon urinalysis results. Testing performed by [facility] ([phone]) Organism Antibiotic Method Susceptibility Escherichia coli Ampicillin [...] ORD ERABLES Final Result Performing Organization Address City/[facility]/ZIP Co de Phone Number [facility] Department [place] [address] * (ABNORMAL) Urinalysis, microscopic only (11/02/2021 7:36 PM CDT) WBC, ur 21-50(A) 0 - 5 /HPF [facility] RBC, ur 0-2 0 - 2 /HPF [facility] Epithelial cells, squamous, ur 1-5 0 - 5 /HPF [facility] Bacteria, ur 4+(A) [facility] Amorphous crystals, ur Trace(A) [facility] Calcium oxalate crystals, ur 1+(A) [facility] Culture Reflex Comment Reflex to urine culture will be performed. [facility] Urine 11/02/2021 7:36 PM CDT 11/03/2021 6:26 AM CDT us Notinfile Unknown LAB URINE ORDERABLES Final Res ult Performing Organization Address City/[facility]/ZIP Co de Phone Number [facility] Department [place] [address] * (ABNORMAL) Urinalysis reflex to microscopic and culture Urine (11/02/2021 7:36 PM CDT) Color, ur Yellow Yellow [facility] Clarity, ur Cloudy(A) Clear [facility] Specific gravity, ur 1.027 1.003 - 1.030 [facility] pH, urine 6.5 [facility] Protein, ur ql Trace Negative [facility] Glucose, ur ql Negative Negative [facility] Ketones, ur Negative Negative [facility] Bilirubin, ur Negative Negative [facility] Blood, ur Negative Negative [facility] Urobilinogen, ur <2.0 <2.0 mg/dL [facility] Nitrite, ur Positive(A) Negative [facility] Leukocyte esterase, ur 2+(A) Negative [facility] UA reflex comment Reflex to microscopic UA will be performed. [facility] Urine 11/02/2021 7:36 PM CDT 11/03/2021 6:26 AM CDT Narrative [facility] - 11/03/2021 6:36 AM CDT ?? Urine pH is affected by diet, medications, systemic acid-base disturbances, and renal tubular function. ??pH may affect urinary stone formation. ??For example, urine pH below 6.0 may help reduce the tendency for calcium phosphate stones and pH greater than 6.0 may reduce the tendency for uric acid stone formation. Source: [employer]. Last revised 03-24-2017 us Notinfile Unknown LAB MICROBIOLOGY - GENERAL ORD ERABLES Final Result [facility] Kathryn [facility] Department [place] [address] * CS GLUCOSE (11/02/2021 5:32 AM CDT) Glucose 94 70 - 199 mg/dL [facility] Comment: Interpretive Data Fasting glucose [...] BLOOD ORDERABLES Final Res ult [facility] Department [place] [address] documented in this encounter Visit Diagnoses Not on filedocumented in this encounter Care Teams Doll Wig Maker Rooted Hair Relationship Specialty Start Date End Date Clinic, Pcp PCP - General 07/14/16 03/25/22 documented as of this encounter
--- OUTSIDE RECORDS SUMMARY | 2024-03-26 07:07 | XMS_ITS | Encounter Summary ---
Author Organization [facility] Healthcare Address [address] [place] [address] Care Team Providers Care Venture Capital Analyst Name Role Phone Clinic, Pcp Primary Care Provider Unavailabl e Encounter Details Date Type Department Care Team (Late st Contact Info) Description 07/21/2016 11:48 AM CDT - 07/21/2016 3:46 PM CDT Hospital Encounter [facility] James Pereira MD [address] [facility] [address] [address] [place] [address] Laceration of right front wall of thorax without foreign body without penetration into thoracic cavity; Contact with knife Social History Tobacco Use Types Packs/Day Years Used Date Smoking Tobacco: Never Assessed Sex and Gender Information Value Date Recorded Sex Assigned at Not on file 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 COLLECTED: 2016-07-21 12:58:00 [id number] ?? REQ#: [id number] REQUESTING DR: Maria Eric CNP ?? SOURCE: BLOOD ?? SP DESC: COMMENT: LAC BC Draw ?? --- PROCEDURE --- ?--- RESULT --- ?? CULTURE BLOOD ADULT (SET OF 2) ??(Final) ??- ??Performed at [facility] ?* NO GROWTH DAY 5 - [facility] ? [address] ? [place] [address] ? James Darling MD Procedure Note 06/03/2018 Microbiology Specimen Report (Converted) SPECIMEN [id number] COLLECTED: 2016-07-21 12:58:00 [id number] REQ#:[id number] REQUESTING DR: Maria Eric CNP SOURCE: BLOOD SP DESC: COMMENT: LAC BC Draw --- PROCEDURE --- --- RESULT --- CULTURE BLOOD ADULT (SET OF 2) (Final) - Performed at [facility] * NO GROWTH DAY 5 - [place] [address] [place] [address] James Darling MD us Maria Lutz NP LAB BLOOD ORDERABLES Sarah juárez Result [facility] HISTORICAL RESULTS * Microbiology Specimen Report (Converted) (07/21/2016 12:29 PM CDT) 07/21/2016 12:2 9 PM CDT 07/21/2016 12:33 PM CDT Narrative [facility] HISTORICAL RESULTS - 07/21/2016 12:29 PM CDT Microbiology Specimen Report (Converted) SPECIMEN [id number] ?? COLLECTED: 2016-07-21 12:29:00 [id number] ?? REQ#: [id number] REQUESTING DR: Maria Eric CNP ?? SOURCE: BLOOD ?? SP DESC: COMMENT: LAC BC Draw ?? --- PROCEDURE --- ?--- RESULT --- ?? CULTURE BLOOD ADULT (SET OF 2) ??(Final) ??- ??Performed at [facility] ?* NO GROWTH DAY 5 - [facility] ? [address] [facility] ? [place] [address] ? James Darling MD Procedure Note 06/03/2018 Microbiology Specimen Report (Converted) SPECIMEN [id number] COLLECTED: 2016-07-21 12:29:00 [id number] REQ#:[id number] REQUESTING DR: Maria Eric CNP SOURCE: BLOOD SP DESC: COMMENT: LAC BC Draw --- PROCEDURE --- --- RESULT --- CULTURE BLOOD ADULT (SET OF 2) (Final) - Performed at [facility] * NO GROWTH DAY 5 - [facility] [address] [place] [address] James Darling MD Maria Lutz NP LAB BLOOD ORDERABLES Sarah l Result Performing Organization Address City/[facility]/ZIP Co de Phone Number [facility] HISTORICAL RESULTS * Protime-INR (07/21/2016 12:29 PM CDT) PT 12.2 11.8 - 14.5 SECONDS 07/21/2016 12:52 PM CDT [facility] HISTORICAL RESULTS INR 0.90 0.01 - 5.99 07/21/2016 12:52 PM CDT [facility] HISTORICAL RESULTS Comment: Recommended Therapeutic range for Oral Anticoagulant Therapy No anti-coagulation therapy ? Normal Range: ?0.8-1.4 Anti-coagulation therapy ? Low intensity therapy ?2.0-3.0 ? High intensity therapy ?? 2.5-3.5 Critical Value ? Greater than or equal to 6.0 Patients should be monitored for serious bleeding. ?? 07/21/2016 12:2 9 PM CDT 07/21/2016 12:33 PM CDT Narrative [facility] HISTORICAL RESULTS - 07/21/2016 12:52 PM CDT LAC BC Draw ?? us Maria Lutz MECHANICAL TECHNICIAN LAB BLOOD ORDERABLES Sarah l Result Performing Organization Address City/[facility]/ZIP Co de Phone Number [facility] HISTORICAL RESULTS * aPTT (07/21/2016 12:29 PM CDT) APTT 29 26 - 33 SECONDS 07/21/2016 12:52 PM CDT [facility] HISTORICAL RESULTS 07/21/2016 12:2 9 PM CDT 07/21/2016 12:33 PM CDT Narrative [facility] HISTORICAL RESULTS - 07/21/2016 12:52 PM CDT LAC BC Draw ?? us Maria Lutz MECHANICAL TECHNICIAN LAB BLOOD ORDERABLES Sarah juárez Result [facility] HISTORICAL RESULTS * (ABNORMAL) Comprehensive metabolic panel (07/21/2016 12:29 PM CDT) Sodium 140 135 - 145 mmol/L 07/21/2016 12:58 PM CDT [facility] HISTORICAL RESULTS Potassium 4.1 3.3 - 5.1 mmol/L 07/21/2016 12:58 PM T [facility] HISTORICAL RESULTS Chloride 102 96 - 108 mmol/L 07/21/2016 12:58 PM T [facility] HISTORICAL RESULTS Carbon Dioxide 26 22 - 32 mmol/L 07/21/2016 12:58 PM T [facility] HISTORICAL RESULTS Anion Gap 12 7 - 16 07/21/2016 12:58 PM T [facility] HISTORICAL RESULTS Glucose 91 70 - 100 mg/dL 07/21/2016 12:58 PM T [facility] HISTORICAL RESULTS BUN 10 6 - 20 mg/dL 07/21/2016 12:58 PM T [facility] HISTORICAL RESULTS Creatinine 0.9 0.5 - 1.3 mg/dL 07/21/2016 12:58 PM T [facility] HISTORICAL RESULTS Comment: NOTE: Estimated GFR (Cockroft-Gault) will NOT [...] PM T 07/21/2016 12:33 PM CDT Narrative [facility] HISTORICAL RESULTS - 07/21/2016 12:58 PM CDT LAC BC Draw ?? us Maria Lutz NP LAB BLOOD ORDERABLES Sarah juárez Result [facility] HISTORICAL RESULTS * (ABNORMAL) CBC with auto differential (07/21/2016 12:29 PM CDT) WBC 5.6 4.6 - 10.2 x10 3/ul 07/21/2016 12:36 PM CDT [facility] HISTORICAL RESULTS RBC 3.20(L) 4.11 - 5.71 x10 6/ul 07/21/2016 12:36 PM CDT [facility] HISTORICAL RESULTS Hemoglobin 10.5(L) 13.0 - 17.0 g/dl 07/21/2016 12:36 PM CDT [facility] HISTORICAL RESULTS Hct 30.2(L) 38.2 - 48.5 % 07/21/2016 12:36 PM CDT [facility] HISTORICAL RESULTS MCV 94.4 80.0 - 97.0 fl 07/21/2016 12:36 PM CDT [facility] HISTORICAL RESULTS MCH 32.8(H) 27.0 - 31.2 pg 07/21/2016 12:36 PM CDT [facility] HISTORICAL RESULTS MCHC 34.8 31.8 - 35.4 g/dl 07/21/2016 12:36 PM CDT [facility] HISTORICAL RESULTS RDW 14.1 11.6 - 14.8 % 07/21/2016 12:36 PM CDT [facility] HISTORICAL RESULTS Plt Count 248 124 - 400 x10 3/ul 07/21/2016 12:36 PM CDT [facility] HISTORICAL RESULTS MPV 9.8 7.4 - 10.4 fl 07/21/2016 12:36 PM CDT [facility] HISTORICAL RESULTS Neut % 51.0 37.0 - 85.0 % 07/21/2016 12:36 PM CDT [facility] HISTORICAL RESULTS Immature Gran % 0.2 0.0 - 3.0 % 07/21/2016 12:36 PM CDT [facility] HISTORICAL RESULTS Lymph % 37.1 5.0 - 45.0 % 07/21/2016 12:36 PM CDT [facility] HISTORICAL RESULTS Finney % 9.4 3.0 - 15.0 % 07/21/2016 12:36 PM T [facility] HISTORICAL RESULTS Eos % 1.6 0.0 - 7.0 % 07/21/2016 12:36 PM CDT [facility] HISTORICAL RESULTS Baso % 0.7 0.0 - 2.0 % 07/21/2016 12:36 PM T [facility] HISTORICAL RESULTS Absolute Neuts (auto) 2.9 1.7 - 8.7 x10 3/ul 07/21/2016 12:36 PM T [facility] HISTORICAL RESULTS Immature Gran # 0.0 0.0 - 0.3 x10 3/ul 07/21/2016 12:36 PM T [facility] HISTORICAL RESULTS Absolute Lymphs (auto) 2.1 0.2 - 4.6 x10 3/ul 07/21/2016 12:36 PM T [facility] HISTORICAL RESULTS Absolute Monos (auto) 0.5 0.1 - 1.5 x10 3/ul 07/21/2016 12:36 PM CDT [facility] HISTORICAL RESULTS Absolute Eos (auto) 0.1 0.0 - 0.7 x10 3/ul 07/21/2016 12:36 PM T [facility] HISTORICAL RESULTS Absolute Basos (auto) 0.0 0.0 - 0.2 x10 3/ul 07/21/2016 12:36 PM T [facility] HISTORICAL RESULTS 07/21/2016 12:2 9 PM CDT 07/21/2016 12:33 PM CDT Narrative [facility] HISTORICAL RESULTS - 07/21/2016 12:36 PM CDT LAC BC Draw ?? us Maria Lutz MECHANICAL TECHNICIAN LAB BLOOD ORDERABLES Sarah l Result [facility] HISTORICAL RESULTS * CT Chest W [...] knife documented in this encounter Care Teams Venture Capital Analyst Relationship Specialty Start Date End Date Clinic, Pcp PCP - General 07/14/16 03/25/22 documented as of this encounter
--- OUTSIDE RECORDS SUMMARY | 2024-03-26 07:07 | XMS_ITS | Encounter Summary ---
Author Organization [facility] Healthcare Address [address] [place] [address] Care Team Providers Care Real Estate Consultant Name Role Phone Clinic, Pcp Primary Care Provider Unavailabl e Encounter Details Date Type Department Care Team (Late st Contact Info) Description 03/09/2022 Documentation [facility] OP Physical Therapy [address] [address] Zeenat Mckeon PTA Social History Tobacco Use Types Packs/Day Years Used Date Smoking Tobacco: Never Assessed Sex and Gender Information Value Date Recorded Sex Assigned at Not on file 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 Called pt and he stated he wasn't aware of his appt today. Reminded pt of next appt date and time. MOTIVE INSPECTOR documented in this encounter Plan of Treatment Not on file documented as of this encounter Visit Diagnoses Not on filedocumented in this encounter Care Teams Real Estate Consultant Relationship Specialty Start Date End Date Clinic, Pcp PCP - General 07/14/16 03/25/22 documented as of this encounter
--- OUTSIDE RECORDS SUMMARY | 2024-03-26 07:07 | XMS_ITS | Encounter Summary ---
Author Organization [facility] Healthcare Address [address] [place] [address] Care Team Providers Care Machine Plaster Mixer Name Role Phone Cristobal Agustin MD Primary Care Provider Reason for Visit * Reason Comments PT Initial Eval * Physical Therapy (Routine) - Closed Specialty Diagnoses / Procedures Referred By Contac t Referred To Contact Physical Therapy Diagnoses Paraplegia, unspecified (HCC) Cristobal Agustin MD [address] [place] [address] Phone: tel: fax: [facility] OP Physical Therapy [address] [place] [address] Phone: tel: fax: Referral ID Status Reason Start Date Expiration Date V isits Requested Visits Authorized [id number] Closed Evaluate and Treat 08/27/2022 03/13/2023 6 99 Encounter Details Date Type Department Care Team (Late st Contact Info) Description 08/27/2022 9:30 AM CDT Therapy [facility] OP Physical Therapy [address] [place] [address] Ashley Isabel, SHIMON Paraplegia, unspecified (HCC) Social History Tobacco Use Types Packs/Day Years Used Date Smoking Tobacco: Every Day Cigarettes Smokeless Tobacco: Never PHQ-2 Answer Date Recorded PHQ-2 Total Score (If total score is 3 or more points, staff should administer the PHQ-9) 2 04/27/2022 Sex and Gender Information Value Date Recorded Sex Assigned at Not on file 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 to drainlayer // bars with Min A for knee [...] from skilled therapy services. Ashley Isabel PT [facility] [...] and revised). 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 to drainlayer // bars with Min A for knee [...] 1 documented in this encounter Care Teams Machine Plaster Mixer Relationship Specialty Start Date End Date Cristobal Agustin MD PCP - General Gastroenterology 03/26/22 documented as of this encounter
--- OUTSIDE RECORDS SUMMARY | 2024-03-26 07:07 | XMS_ITS | Encounter Summary ---
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 73 m2 [facility] Comment: Interpretive Data Reference Interval Normal [...] Unknown LAB BLOOD ORDERABLES Final Res ult [facility] Department [place] [address] * (ABNORMAL) Comprehensive metabolic panel, without glucose (Outreach) (10/29/2021 10:25 AM CDT) Sodium 139 135 - 145 mmol/L [facility] Potassium, pl 3.9 3.3 - 4.9 mmol/L [facility] Chloride 100 97 - 110 mmol/L [facility] CO2 30 22 - 32 mmol/L [facility] Anion gap 9 2 - 15 mmol/L [facility] BUN 13 8 - 25 mg/dL [facility] Creatinine 0.91 0.80 - 1.30 mg/dL [facility] Calcium 9.3 8.5 - 10.3 mg/dL [facility] Protein, pl 6.9 6.5 - 8.5 g/dL [facility] Albumin 3.5 3.5 - 5.0 g/dL [facility] Bilirubin, total 0.2 0.1 - 1.2 mg/dL [facility] Alk phos 174(H) 40 - 130 Units/L [facility] AST 154(H) 10 - 50 Units/L [facility] ALT 362(H) 7 - 55 Units/L [facility] Blood 10/29/2021 10:2 5 AM CDT 10/29/2021 10:59 AM CDT us Notinfile Unknown LAB BLOOD ORDERABLES Final Res ult Performing Organization Address [facility] de Phone Number [facility] Department [place] [address] * CS GLUCOSE (10/29/2021 10:25 AM CDT) [facility] Signature Glucose 95 70 - 199 mg/dL [facility] Comment: Interpretive Data Fasting glucose >/= [...] ORDERABLES Final Res ult Performing Organization Address [facility]/State/ZIP Co de Phone Number [facility] Department [place] [address] * Differential, auto (10/29/2021 10:25 AM CDT) Neutrophil abs 3.5 1.7 - 6.5 K/cumm [facility] Imm gran abs 0.0 0.0 - 0.1 K/cumm [facility] Lymphocyte abs 1.5 0.8 - 3.3 K/cumm [facility] Monocyte abs 0.7 0.2 - 0.8 K/cumm [facility] Eosinophil abs 0.2 0.0 - 0.5 K/cumm [facility] Basophil abs 0.0 0.0 - 0.1 K/cumm [facility] Neutrophil pct 59.1 % [facility] Comment: Interpretive Data Percent cell count reference ranges are not reported, since discordance with absolute values may lead to misinterpretation of CBC data. Current Interpretive Data was last revised on 2017. Imm gran pct 0.3 % [facility] Comment: Interpretive Data Percent cell count reference ranges are not reported, since discordance with absolute values may lead to misinterpretation of CBC data. Current Interpretive Data was last revised on 2017. Lymphocyte pct 25.3 % [facility] Comment: Interpretive Data Percent cell count reference ranges are not reported, since discordance with absolute values may lead to misinterpretation of CBC data. Current Interpretive Data was last revised on 2017. Monocyte pct 11.5 % [facility] Comment: Interpretive Data Percent cell count reference ranges are not reported, since discordance with absolute values may lead to misinterpretation of CBC data. Current Interpretive Data was last revised on 2017. Eosinophil pct 3.1 % [facility] Comment: Interpretive Data Percent cell count reference ranges are not reported, since discordance with absolute values may lead to misinterpretation of CBC data. Current Interpretive Data was last revised on 2017. Basophil pct 0.7 % [facility] Comment: Interpretive Data Percent cell count reference ranges are not reported, since discordance with absolute values may lead to misinterpretation of CBC data. Current Interpretive Data was last revised on 2017. Blood 10/29/2021 10:2 5 AM CDT 10/29/2021 10:59 AM CDT us Notinfile Unknown LAB BLOOD ORDERABLES Final Res ult Performing Organization Address [facility] Co de Phone Number [facility] [place] [address] * (ABNORMAL) CBC with auto differential (10/29/2021 10:25 AM CDT) WBC 5.8 3.8 - 9.9 K/cumm [facility] Hgb 10.2(L) 13.0 - 17.5 g/dL [facility] Hct 32.4(L) 38.9 - 50.3 % [facility] Plt 392 150 - 400 K/cumm [facility] MPV 10.6 9.1 - 12.3 fL [facility] RBC 3.54(L) 4.30 - 5.80 M/cumm [facility] MCV 91.5 81.3 - 96.4 fL [facility] MCH 28.8 27.1 - 33.3 pg [facility] MCHC 31.5(L) 32.3 - 35.7 g/dL [facility] RDW CV 16.3(H) 11.1 - 14.9 % [facility] RDW SD 55.4(H) 35.7 - 48.1 fL [facility] NRBC abs 0.00 0.00 - 0.01 K/cumm [facility] Blood 10/29/2021 10:2 5 AM CDT 10/29/2021 10:59 AM CDT us Notinfile Unknown LAB BLOOD ORDERABLES Final Res ult Performing Organization Address City/[facility]/ZIP Co de Phone Number [facility] [place] [address] documented in this encounter Visit Diagnoses Not on filedocumented in this encounter Care Teams Motor Equipment Captain Relationship Specialty Start Date End Date Clinic, Pcp PCP - General 5/3/17 1/12/23 documented as of this encounter
--- OUTSIDE RECORDS SUMMARY | 2024-03-26 07:07 | XMS_ITS | Encounter Summary ---
Author Organization [facility] Healthcare Address [address] [place] [address] Care Team Providers Care Customer Care Assistant Name Role Phone Clinic, Pcp Primary Care Provider Unavailabl e Reason for Visit * Reason Comments OT Initial Eval * Consultation (Routine) - Closed Specialty Diagnoses / Procedures Referred By Contac t Referred To Contact Occupational Therapy Diagnoses Paraplegia, complete (HCC) Natasha Rojas MD [address] [facility] [address] Phone: tel: fax: [address] [phone] Referral ID Status Reason Start Date Expiration Date V isits Requested Visits Authorized [id number] Closed Specialty Services Required 11/11/2021 12/11/2022 24 24 Encounter Details Date Type Department Care Team (Late st Contact Info) Description 12/02/2021 2:00 PM CDT Therapy [facility] at [address] [place] [address] Keith Lopez OT Paraplegia, complete (HCC) Social History Tobacco Use Types Packs/Day Years Used Date Smoking Tobacco: Never Assessed Sex and Gender Information Value Date Recorded Sex Assigned at Not on file 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 male Natasha Rojas MD [address] [facility] [address] ICD-9-CM ICD-10-CM 1. 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.1 [...] copy next visit: N/A C-SSRS (short version): [place] Suicide Severity Rating Scale 1. Wish to [...] is bringing patient to app Equipment used: vp celebrity services, slide board, Lives in: Apartment 2nd floor, [...] in UEs, edema in bilteral feet Coordination: ([id number]): Intact right: Intact, left Intact AROM WFL [...] Thumb extension= Date:12/02 right 5/5, left 5/5 Peanut Blancher and Pinch Testing (average 3 trials): Peanut Blancher (norm R 76-176#, L 73-157#)= Date:12/02/21 right [...] 12/02/2021 documented in this encounter Care Teams Customer Care Assistant Relationship Specialty Start Date End Date Clinic, Pcp PCP - General 07/14/16 03/25/22 documented as of this encounter
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
== END 2024-03-19 21:19 | disposition left against medical advice (07) ==
LOC: ANHED 21:56
PROVIDERS: Emergency Provider Physician Assistant; PCP Internal Medicine Gastroenterology
DX: R10.9 Unspecified abdominal pain (principal); G82.20 Paraplegia, unspecified
CPT/HCPCS: 99281